=== PATIENT | male | born 1950 ===

== ENCOUNTER 2016-06-16 18:50 | Observation (INO) | payer MEDICAID ==
[2016-06-16 18:50] VITALS: PULSE 97; BMI 37.1
--- NOTE | 2016-06-16 19:21 | ED PDOC ---
Lower Extremity Pain/Injury Time Seen by Provider: 06/16/16 19:06 Chief Complaint (Nursing): Lower Extremity Problem/Injury Chief Complaint (Provider): Bilateral Leg Swelling History Per: Patient History/Exam Limitations: no limitations Onset/Duration Of Symptoms: Days (1 day) Current Symptoms Are (Timing): Still Present Severity: Moderate Additional Complaint(s): Ignacio Soni is a 65 year old male, with a past medical history of coronary artery disease, congestive heart failure, and hypertension, who presents to the emergency department for the evaluation of bilateral leg swelling, inclusive of redness, that the patient has been experiencing for 1 day. Patient states that symptoms are similar to previous episodes of when he has had a fluid overload in the past. Denies chest pain, shortness of breath, a cough, or a fever. Of note, patient is compliant with his medications. PMD: Maricruz Solis - Risk Factors DVT Risk Factors: Pos: CHF Past Medical History Reviewed: Historical Data, Nursing Documentation, Vital Signs Vital Signs: Last Vital Signs Temp 97.5 F L 06/16/16 18:51 Pulse 80 06/16/16 18:51 Resp 18 06/16/16 18:51 BP 124/69 06/16/16 18:51 Pulse Ox 100 06/16/16 18:51 - Medical History PMH: Asthma, Atrial Fibrillation, CAD, CHF, COPD, CVA, HTN, Hypercholesterolemia Denies: Diabetes, HIV, Chronic Kidney Disease Other PMH: Angina, Hypercalcemia Adrenal Adenoma, DJD, Gout, COPD - Surgical History Other surgeries: Orthopedic Surgery - Family History Family History: States: [place], Diabetes, Hypertension (mother) - Social History Current smoker - smoking cessation education provided: No Ex-Smoker (has not smoked in the last 12 months): Yes Drugs: Cocaine - Home Medications Home Medications: Ambulatory Orders Medication Instructions Recorded Losartan [Cozaar] 100 mg PO DAILY #0 tab 04/10/16 [id number] CD [Cardizem CD] 180 mg PO DAILY #0 cap 04/10/16 Atorvastatin [Lipitor] 40 mg PO HS 05/03/16 Albuterol HFA [Ventolin HFA 90 2 puff IH [id number] #1 inhaler 06/02/16 mcg/actuation (8 g)] Apixaban [Eliquis] 5 mg PO BID #60 06/02/16 Aspirin [Aspirin EC] 325 mg PO DAILY #30 06/02/16 Colchicine [Colcrys] 0.6 mg PO DAILY #30 06/02/16 Gabapentin [Neurontin] 300 mg PO BID #60 06/02/16 Tiotropium [Spiriva] 18 mcg IH DAILY #30 cap 06/02/16 - Allergies Allergies/Adverse Reactions: Allergies Allergy/AdvReac Type Severity Reaction Status Date / Time Penicillins Allergy RASH Verified 06/02/16 03:12 Review of Systems ROS Statement: Except As Marked, All Systems Reviewed And Found Negative Constitutional: Negative for: Fever Cardiovascular: Positive for: Edema (b/l legs inclusive of redness). Negative for: Chest Pain Respiratory: Negative for: Cough, Shortness of Breath Physical Exam - Reviewed Nursing Documentation Reviewed: Yes Vital Signs Reviewed: Yes - Physical Exam Appears: Positive for: Non-toxic, No Acute Distress Head Exam: Positive for: ATRAUMATIC, NORMOCEPHALIC Skin: Positive for: Normal Color, Warm, Dry Eye Exam: Positive for: Normal appearance, EOMI, PERRL ENT: Positive for: Normal ENT Inspection. Negative for: Pharyngeal Erythema, Tonsillar Exudate Neck: Positive for: Normal, Painless ROM, Supple Cardiovascular/Chest: Positive for: Regular Rate, Rhythm. Negative for: Murmur Respiratory: Positive for: Rales (b/l lower lung quintana). Negative for: Normal Breath Sounds, Wheezing, Respiratory Distress Gastrointestinal/Abdominal: Positive for: Normal Exam, Soft. Negative for: Tenderness Back: Positive for: Normal Inspection. Negative for: Decreased ROM Extremity: Positive for: Normal ROM, Tenderness (b/l anterior lower leg tenderness inclusive of warmth and subtle erythema), Pedal Edema (pitting), Swelling Lymphatic: Negative for: Adenopathy Neurologic/Psych: Positive for: Alert, Oriented. Negative for: Motor/Sensory Deficits - Laboratory Results Result Diagrams: 06/17/16 06:00 06/17/16 06:00 - ECG O2 Sat by Pulse Oximetry: 100 (RA) Pulse Ox Interpretation: Normal Medical Decision Making Medical Decision Makin:06 Initial Impression: Leg swelling Differential Diagnoses includes, but is not limited to, CHF, DVT, cellulitis, and renal insufficiency. Initial Plan: * Duplex Lower Extrm Vein Bilat US * Chest X-Ray * EKG * CBC * CMP * PT/PTT * BNP * Troponin I * Lact Acid, Plasma * Glucose, Blood, POC * Urine Drug Screen * Urinalysis * Blood Culture * Urine Culture * Reevaluation Accession No. : [id number] Patient Name / ID : OSCAR DOSS / [id number] Exam Date : 06/16/2016 20:55:08 ( Approved ) Study Comment : Sex / Age : M / [id number] Creator : Antonio Armendariz MD Dictator : Examination Scorer : Electrician Office : Antonio Armendariz MD Approver2 : Report Date : 06/16/2016 21:37:00 My Comment : [facility] Division of Radiology [address] [place] [address] Tel. no. Patient Name: IGNACIO SONI Pt. Address: [address] [place] [address] Rec #: [id number] [place] [address]: Chalo CONWAY, Mery Lozada Pt CELL Order Location: [facility] MARYVALE : 1950 Male Age: 65 Order #: [id number] Reason for exam: leg swelling Ultrasound DUPLEX LOWER EXTRM VEIN BILAT Exam Date: 06/16/16 This imaging exam was performed at [facility] EXAM: US Duplex Bilateral Lower Extremity Veins CLINICAL HISTORY: 65 years old, male; Pain; Leg, lower; Bilateral; Additional info: Leg swelling TECHNIQUE: Real-time ultrasound scan of the veins of the bilateral lower extremities with color Doppler flow, spectral waveform analysis and compression. COMPARISON: No relevant prior studies available. FINDINGS: Right deep veins: Normal color and spectral Doppler flow. Normal compressibility. No deep vein thrombosis from common femoral to popliteal vein. Right superficial veins: Unremarkable. Left deep veins: Normal color and spectral Doppler flow. Normal compressibility. No deep vein thrombosis from common femoral to popliteal vein. Left superficial veins: Unremarkable. Soft tissues: No popliteal cyst. IMPRESSION: 1. No evidence of DVT within the lower extremities. 2. Incidental/non-acute findings are described above. Dictated By: Antonio Armendariz MD Dictated Date/Time: 06/16/162136 Signed By: Antonio Armendariz MD Date Signed: 2136 Transcribed By: JAGJIT Transcribe Date/Time : 06/16/162136 [id number]/STEVEN Pt needs hospitalization for chest pain with cardiac risk factors. Scribe Attestation: Documented by Fabricio Barfield, acting as a scribe for Mery Isabel MD. Provider Scribe Attestation: All medical record entries made by the Scribe were at my direction and personally dictated by me. I have reviewed the chart and agree that the record accurately reflects my personal performance of the history, physical exam, medical decision making, and the department course for this patient. I have also personally directed, reviewed, and agree with the discharge instructions and disposition. Disposition - Clinical Impression Clinical Impression: CHF (congestive heart failure), Acute chest pain Discussed With : Alber Hairston Doctor Will See Patient In The: Hospital Counseled Patient/Family Regarding: Studies Performed, Diagnosis - Disposition Disposition Time: 19:20 Condition: SERIOUS - Pt Status Changed To: Hospital Disposition Of: Observation - POA Present On Arrival: None
[2016-06-16 20:29] LABS: BASO # 0.1 K/uL (0.0-0.2); BASO % 0.6 % (0.0-2.0); EOS # 0.4 K/uL (0.0-0.7); EOS % 3.9 % (0.0-4.0); HEMATOCRIT 42.7 % (35.0-51.0); LYMPH % 21.9 % (20.0-40.0); MEAN CELL VOLUME 91.5 fl (80.0-94.0); MEAN CORPUSCULAR HEMOGLOBIN 29.8 pg (27.0-31.0); MEAN CORPUSCULAR HGB CONC 32.6 g/dL (33.0-37.0); MEAN PLATELET VOLUME 10.9 fl (7.2-11.7); MONO # 0.7 K/uL (0.0-0.8); MONO % 8.2 % (0.0-10.0); NEUT % 65.4 % (50.0-75.0); RED CELL DISTRIBUTION WIDTH 15.9 % (11.5-14.5); WHITE BLOOD COUNT 9.1 K/uL (4.8-10.8)
[2016-06-16 20:32] LABS: RBC URINE 1 /hpf (0-3); URINE BILIRUBIN NEGATIVE (NEGATIVE); URINE BLOOD NEGATIVE (NEGATIVE); URINE COLOR YELLOW (YELLOW); URINE GLUCOSE (UA) NEG (Normal); URINE KETONE NEGATIVE (NEGATIVE); URINE LEUKOCYTE ESTERASE NEG Leu/uL (Negative); URINE PROTEIN NEGATIVE (NEGATIVE); URINE UROBILINOGEN 0.2-1.0 mg/dL (0.2-1.0); WBC URINE < 1 /hpf (0-5)
[2016-06-16 20:44] LABS: ALB/GLOB RATIO 1.3 (1.0-2.1); ALKALINE PHOSPHATASE 95 U/L (38-126); ALT/SGPT 38 U/L (21-72); AST/SGOT 27 U/L (17-59); BILIRUBIN,TOTAL 0.5 mg/dl (0.2-1.3); BLOOD UREA NITROGEN 23 mg/dl (9-20); CARBON DIOXIDE 26 mmol/L (22-30); CHLORIDE 106 mmol/L (98-107); GFR AFRICAN-AMERICAN > 60; GLUCOSE,RANDOM 90 mg/dL (75-110); POTASSIUM 4.3 MMOL/L (3.6-5.0); SODIUM 141 mmol/l (132-148); TOTAL PROTEIN 6.8 G/DL (6.3-8.2)
[2016-06-16 21:03] LABS: PARTIAL THROMBOPLASTIN TIME 26.4 SECONDS (23.3-32.5)
--- NOTE | 2016-06-16 21:37 | US ---
EXAM: US Duplex Bilateral Lower Extremity Veins CLINICAL HISTORY: 65 years old, male; Pain; Leg, lower; Bilateral; Additional info: Leg swelling TECHNIQUE: Real-time ultrasound scan of the veins of the bilateral lower extremities with color Doppler flow, spectral waveform analysis and compression. COMPARISON: No relevant prior studies available. FINDINGS: Right deep veins: Normal color and spectral Doppler flow. Normal compressibility. No deep vein thrombosis from common femoral to popliteal vein. Right superficial veins: Unremarkable. Left deep veins: Normal color and spectral Doppler flow. Normal compressibility. No deep vein thrombosis from common femoral to popliteal vein. Left superficial veins: Unremarkable. Soft tissues: No popliteal cyst. IMPRESSION: 1. No evidence of DVT within the lower extremities. 2. Incidental/non-acute findings are described above.
[2016-06-16] MEDS ORDERED: Clindamycin 600 MG in Sodium Chloride 0.9% 100 ML IVPB STA (21:47)
--- NOTE | 2016-06-17 00:21 | CP.PCM.HP ---
History of Present Illness - History of Present Illness History of Present Illness: CC: BL leg swelling x 1 day 65yo M with PMHx of Systolic CHF ( EF 45% on last ECHO 04/23), HTN, Afib, CVA, COPD, HLD, gout, hyperparathyroidism, hypercalcemia, and cocaine use admitted for bilateral leg swelling x 1 day. Also associated with some redness and warmth. States similiar episode before during CHF exacerbation. Denies f/c/n/v/ chest pain, shortness of breath, cough/abd pain/ diarrhea/focal weakness. States being compliant with medications but does not remember names. Admits to cocaine use this morning. States not following up at clinic s/p discharge from [facility] 06/02 because he ''did not have time''. PMHx: as above PSHx: b/l bunionectomy (1996) Allergy: PCN SHx: Homeless, Smokes Tobacco, Occasional etoh, Cocaine Abuse Meds: verified with last discharge 06/02; has not followed up with [facility] since PMD: [facility] ED Course: Initial Plan: Duplex Lower Extrm Vein Bilat US: WNL Chest X-Ray EKG CBC CMP PT/PTT BNP Troponin I Lact Acid, Plasma Glucose, Blood, POC Urine Drug Screen Urinalysis Blood Culture Urine Culture Present on Admission - Present on Admission Any Indicators Present on Admission: No Review of Systems - Review of Systems Review of Systems: see hpi Past Patient History - Infectious Disease Hx of Infectious Diseases: None - Tetanus Immunizations Tetanus Immunization: Unknown - Past Medical History & Family History Past Medical History?: Yes - Past Social History Drugs: Cocaine - CARDIAC Hx Atrial Fibrillation: Yes Hx Congestive Heart Failure: Yes Hx Hypercholesterolemia: Yes Hx Hypertension: Yes - PULMONARY Hx Asthma: Yes Hx Chronic Obstructive Pulmonary Disease (COPD): Yes - NEUROLOGICAL HX Cerebrovascular Accident: Yes (Left cerebellar infarct) Hx Dizziness: Yes Hx Vertigo: Yes Other/Comment: Hx Neuropathy - HEENT Hx HEENT Problems: No - RENAL Hx Chronic Kidney Disease: No - ENDOCRINE/METABOLIC Hx Endocrine Disorders: Yes (Hypercalcemia adrenal adenoma) Other/Comment: Hx Hyperparathyroid. Hx Left Adrenal mass. Hx Metabolic Syndrome - HEMATOLOGICAL/ONCOLOGICAL Hx Human Immunodeficiency Virus (HIV): No - INTEGUMENTARY Hx Dermatological Problems: Yes Hx Cellulitis: Yes - MUSCULOSKELETAL/RHEUMATOLOGICAL Hx Gout: Yes - GASTROINTESTINAL Other/Comment: Hx Gastroenteritis - GENITOURINARY/GYNECOLOGICAL Hx Genitourinary Disorders: No - PSYCHIATRIC Hx Psychophysiologic Disorder: Yes Hx Psychosis: Yes Hx Substance Use: Yes - SURGICAL HISTORY Hx Surgeries: Yes Hx Orthopedic Surgery: Yes Other/Comment: Hx BILATERAL BUNIONECTOMY 1996 - ANESTHESIA Hx Anesthesia: Yes Hx Anesthesia Reactions: No Hx Malignant Hyperthermia: No Meds Allergies/Adverse Reactions: Allergies Allergy/AdvReac Type Severity Reaction Status Date / Time Penicillins Allergy RASH Verified 06/02/16 03:12 Physical Exam - Constitutional Appears: No Acute Distress, Unkempt, Older Than Stated Age - Head Exam Head Exam: ATRAUMATIC - Eye Exam Eye Exam: EOMI Pupil Exam: PERRL - ENT Exam ENT Exam: Mucous Membranes Moist - Neck Exam Neck exam: Positive for: Full Rom - Respiratory Exam Respiratory Exam: absent: Accessory Muscle Use, Respiratory Distress Additional comments: fine crackles on BL lung bases, decreased BS BL bases - Cardiovascular Exam Cardiovascular Exam: +S1, +S2 - GI/Abdominal Exam GI & Abdominal Exam: Distended, Soft. absent: Guarding, Mass, Rigid, Tenderness - Extremities Exam Extremities exam: Positive for: pedal pulses present. Negative for: calf tenderness Additional comments: BL 2+ pitting edema up till daugherty, BL mild erythema, no ulcerations - Neurological Exam Neurological exam: Alert, Oriented x3 - Psychiatric Exam Psychiatric exam: Normal Affect, Normal Mood - Skin Skin Exam: Normal Color, Warm Results - Vital Signs Recent Vital Signs: Last Vital Signs Temp 97.5 F L 06/16/16 18:51 Pulse 71 06/16/16 21:45 Resp 16 06/16/16 21:45 BP 143/84 06/16/16 21:45 Pulse Ox 100 06/16/16 21:46 - Labs Result Diagrams: 06/16/16 20:11 06/16/16 20:11 Labs: Laboratory Results - last 24 hr 06/16/16 06/16/16 06/16/16 20:11 20:11 20:11 WBC 9.1 RBC 4.66 Hgb 13.9 Hct 42.7 MCV 91.5 MCH 29.8 MCHC 32.6 L RDW 15.9 H Plt Count 151 MPV 10.9 Neut % (Auto) 65.4 Lymph % (Auto) 21.9 Lyman % (Auto) 8.2 Eos % (Auto) 3.9 Baso % (Auto) 0.6 Neut # 6.0 Lymph # 2.0 Lyman # 0.7 Eos # 0.4 Baso # 0.1 PT INR APTT Sodium 141 Potassium 4.3 Chloride 106 Carbon Dioxide 26 Anion Gap 14 BUN 23 H Creatinine 1.3 Est GFR ( Amer) > 60 Est GFR (Non-Af Amer) 56 Random Glucose 90 Lactic Acid 1.3 Calcium 11.0 H Total Bilirubin 0.5 AST 27 ALT 38 Alkaline Phosphatase 95 Troponin I < 0.0120 NT-Pro-B Natriuret Pep 610 Total Protein 6.8 Albumin 3.8 Globulin 3.0 Albumin/Globulin Ratio 1.3 Urine Color Urine Clarity Urine pH Ur Specific Dunlo Urine Protein Urine Glucose (UA) Urine Ketones Urine Blood Urine Nitrate Urine Bilirubin Urine Urobilinogen Ur Leukocyte Esterase Urine RBC (Auto) Urine Microscopic WBC Urine Opiates Screen Urine Methadone Screen Ur Barbiturates Screen Ur Phencyclidine Scrn Ur Amphetamines Screen U Benzodiazepines Scrn U Oth Cocaine Metabols U Cannabinoids Screen 06/16/16 06/16/16 06/16/16 20:11 20:11 20:11 WBC RBC Hgb Hct MCV MCH MCHC RDW Plt Count MPV Neut % (Auto) Lymph % (Auto) Lyman % (Auto) Eos % (Auto) Baso % (Auto) Neut # Lymph # Lyman # Eos # Baso # PT 11.2 INR 1.08 APTT 26.4 Sodium Potassium Chloride Carbon Dioxide Anion Gap BUN Creatinine Est GFR ( Amer) Est GFR (Non-Af Amer) Random Glucose Lactic Acid Calcium Total Bilirubin AST ALT Alkaline Phosphatase Troponin I NT-Pro-B Natriuret Pep Total Protein Albumin Globulin Albumin/Globulin Ratio Urine Color Yellow Urine Clarity Clear Urine pH 6.0 Ur Specific Dunlo 1.021 Urine Protein Negative Urine Glucose (UA) Neg Urine Ketones Negative Urine Blood Negative Urine Nitrate Negative Urine Bilirubin Negative Urine Urobilinogen 0.2-1.0 Ur Leukocyte Esterase Neg Urine RBC (Auto) 1 Urine Microscopic WBC < 1 Urine Opiates Screen Negative Urine Methadone Screen Negative Ur Barbiturates Screen Negative Ur Phencyclidine Scrn Negative Ur Amphetamines Screen Negative U Benzodiazepines Scrn Negative U Oth Cocaine Metabols Positive H U Cannabinoids Screen Negative Assessment & Plan - Assessment and Plan (Free Text) Plan: 65yo M with PMHx of Systolic CHF ( EF 45% on last ECHO 04/23), HTN, Afib, CVA, COPD, HLD, gout, hyperparathyroidism, hypercalcemia, and cocaine use admitted for bilateral leg swelling x 1 day. Bilateral leg swelling 2/2 fluid overload in setting of systolic CHF ED Course: Duplex Lower Extrm Vein Bilat US: WNL Chest X-Ray EKG CBC CMP PT/PTT BNP 610, Troponin I negative Lact Acid WNL Glucose, Blood, POC Urine Drug Screen Urinalysis Blood Culture Urine Culture clindamycin IV x 1, lasix admit to tele alarm security or surveillance monitor daily weights monitory I/O Lasix 40 mg IV BID last ECHO 04/23: EF 45%, mod MR, mild TR c/w ARB Afib rate controlled c/w cardizem elaquis 5 mg BID HTN c/w losartan COPD c/w spiriva and ventolin Gout c/w colchicine HLD c/w Lipitor PPx DVT - Elaquis due to a fib Diet HH
[2016-06-17] MEDS: Albuterol HFA 90 mcg/actuation (8 g) IH SCH ×3 (00:32→10:01)
[2016-06-17 07:17] LABS: BASO % 0.7 % (0.0-2.0); EOS # 0.3 K/uL (0.0-0.7); EOS % 3.9 % (0.0-4.0); HEMATOCRIT 42.8 % (35.0-51.0); LYMPH # 1.6 K/uL (1.0-4.3); LYMPH % 23.4 % (20.0-40.0); MEAN CORPUSCULAR HEMOGLOBIN 30.1 pg (27.0-31.0); MEAN CORPUSCULAR HGB CONC 33.5 g/dL (33.0-37.0); MONO # 0.5 K/uL (0.0-0.8); MONO % 7.9 % (0.0-10.0); NEUT # 4.4 K/uL (1.8-7.0); NEUT % 64.1 % (50.0-75.0); NRBC % 0.1 % (0.0-0.0); RED CELL DISTRIBUTION WIDTH 15.7 % (11.5-14.5); WHITE BLOOD COUNT 6.9 K/uL (4.8-10.8)
[2016-06-17 07:27] LABS: ALB/GLOB RATIO 1.3 (1.0-2.1); BILIRUBIN,TOTAL 0.7 mg/dl (0.2-1.3); CALCIUM 11.3 mg/dL (8.4-10.2); POTASSIUM 5.2 MMOL/L (3.6-5.0); TOTAL PROTEIN 6.9 G/DL (6.3-8.2)
[2016-06-17] MEDS ORDERED: Tiotropium 18 mcg Cap For Inhalation IH SCH (09:00)
[2016-06-17] MEDS ORDERED: diltiaZEM 180 mg/24 Hours CD Cap PO SCH (09:00)
[2016-06-17] MEDS ORDERED: Aspirin 325 mg EC Tablets PO SCH (09:00)
[2016-06-17 09:11] VITALS: RESP 20
[2016-06-17] MEDS ORDERED: Albuterol 0.083% Inhal Sol (2.5 mg/3 mL) UD INH ONE (09:16)
--- NOTE | 2016-06-17 10:10 | CARD ---
APPROVED REPORT EKG Measurement Heart [id number] <Conclusion> Atrial fibrillation Abnormal ECG
--- NOTE | 2016-06-17 12:36 | RAD ---
HISTORY: Edema. COMPARISON: 06/02/2016. FINDINGS: LUNGS: No active pulmonary disease. PLEURA: No significant pleural effusion identified, no pneumothorax apparent. CARDIOVASCULAR: No radiographic findings to suggest acute or significant cardiovascular disease. OSSEOUS STRUCTURES: No significant abnormalities. VISUALIZED UPPER ABDOMEN: Normal. OTHER FINDINGS: None. IMPRESSION: No active disease. No significant interval change compared to the prior examination(s).
[2016-06-17 12:56] VITALS: TEMP 97.9
[2016-06-17 14:41] VITALS: BP 127/71; PULSE 89
--- NOTE | 2016-06-18 12:32 | CARD ---
APPROVED REPORT EKG Measurement Heart [id number] <Conclusion> Atrial fibrillation Abnormal ECG
[2016-06-19 00:17] VITALS: O2SAT 100
== END 2016-06-17 14:42 | disposition home or self-care (01) ==
LOC: H.ER 18:50 → H.ERHOLD 23:55 → H.TEL 06-17 04:02
PROVIDERS: ADMIT Family Medicine Geriatric Medicine; ATTEND Family Medicine Geriatric Medicine
DX: M79.89 Other specified soft tissue disorders (principal); E78.00 Pure hypercholesterolemia, unspecified; E78.5 Hyperlipidemia, unspecified; I11.0 Hypertensive heart disease with heart failure; I48.91 Unspecified atrial fibrillation; I50.22 Chronic systolic (congestive) heart failure; J44.9 Chronic obstructive pulmonary disease, unspecified; M10.9 Gout, unspecified; Z59.0 Homelessness; Z86.73 Personal history of transient ischemic attack (TIA), and cerebral infarction without residual deficits; I25.10 Atherosclerotic heart disease of native coronary artery without angina pectoris; Z95.5 Presence of coronary angioplasty implant and graft; J45.909 Unspecified asthma, uncomplicated; Z88.0 Allergy status to penicillin; E21.3 Hyperparathyroidism, unspecified; F14.90 Cocaine use, unspecified, uncomplicated

== ENCOUNTER 2016-06-21 19:54 | Emergency (ER) | payer MEDICAID ==
[2016-06-21 19:54] VITALS: PULSE 97; BMI 37.1
[2016-06-21 20:49] VITALS: BP 140/88; PULSE 88; RESP 18; TEMP 97.9; O2SAT 100
--- NOTE | 2016-06-21 21:15 | ED PDOC ---
Lower Extremity Pain/Injury Time Seen by Provider: 06/21/16 21:13 Chief Complaint (Nursing): Lower Extremity Problem/Injury Chief Complaint (Provider): LOWER EXTREMITY EDEMA History Per: Patient (65 Y/O MALE HOMELESS HERE WITH LOWER EXTREMITY EDEMA WORSENING TODAY. PATIENT NOTES MILD SOB. STATES HE WAS ADMITTED TO HOSPITAL FOR SIMILAR SYMPTOMS BUT FEELS NO IMPROVEMENT. DENIES ANY COUGH/FEVERS/CHILLS. ) Past Medical History Reviewed: Historical Data, Nursing Documentation, Vital Signs Vital Signs: Last Vital Signs Temp 97.9 F 06/21/16 20:45 Pulse 88 06/21/16 20:45 Resp 18 06/21/16 20:45 BP 140/88 06/21/16 20:45 Pulse Ox 100 06/21/16 20:45 - Medical History PMH: Asthma, Atrial Fibrillation, CAD, CHF, COPD, CVA, HTN, Hypercholesterolemia , Peripheral Edema Denies: Diabetes, HIV, Chronic Kidney Disease - Family History Family History: States: Unknown Family Hx, VT, Diabetes, Hypertension (mother) - Home Medications Home Medications: Ambulatory Orders Medication Instructions Recorded Losartan [Cozaar] 100 mg PO DAILY #0 tab 04/10/16 diltiaZEM CD [Cardizem CD] 180 mg PO DAILY #0 cap 04/10/16 Atorvastatin [Lipitor] 40 mg PO HS 05/03/16 Albuterol HFA [Ventolin HFA 90 2 puff IH [id number] #1 inhaler 06/02/16 mcg/actuation (8 g)] Apixaban [Eliquis] 5 mg PO BID #60 06/02/16 Aspirin [Aspirin EC] 325 mg PO DAILY #30 06/02/16 Colchicine [Colcrys] 0.6 mg PO DAILY #30 06/02/16 Gabapentin [Neurontin] 300 mg PO BID #60 06/02/16 Tiotropium [Spiriva] 18 mcg IH DAILY #30 cap 06/02/16 - Allergies Allergies/Adverse Reactions: Allergies Allergy/AdvReac Type Severity Reaction Status Date / Time Penicillins Allergy RASH Verified 06/02/16 03:12 Review of Systems ROS Statement: Except As Marked, All Systems Reviewed And Found Negative Physical Exam - Reviewed Nursing Documentation Reviewed: Yes Vital Signs Reviewed: Yes - Physical Exam Appears: Positive for: Well, Non-toxic, No Acute Distress Head Exam: Positive for: ATRAUMATIC, NORMAL INSPECTION, NORMOCEPHALIC Skin: Positive for: Normal Color, Warm, DRY Eye Exam: Positive for: EOMI, Normal appearance, PERRL ENT: Positive for: Normal ENT Inspection Neck: Positive for: Normal, Painless ROM Cardiovascular/Chest: Positive for: Regular Rate, Rhythm Respiratory: Positive for: Normal Breath Sounds, Rales (RIGHT LOWER BASE.) Gastrointestinal/Abdominal: Positive for: Normal Exam, Bowel Sounds, Soft Back: Positive for: Normal Inspection Extremity: Positive for: Normal ROM, Other (MILD EDEMA NOTED BILATERAL ANKLE.) Neurologic/Psych: Positive for: Alert, Oriented - Laboratory Results Result Diagrams: 06/21/16 21:40 06/21/16 21:40 - ECG O2 Sat by Pulse Oximetry: 100 - Progress ED Course And Treament: REVIEW OF OLD RECORDS DEMOSNTRATES: PATIENT WAS NOTED TO HAVE 05/13/16 NUCLEAR ECHO WITH 60-65% EF AND DISCHARGED FROM HOSPITAL WITH DIAGNOSIS OF PERIPHERAL EDEMA, NOT CHF. ULTRASOUND 06/16/2016: NO DVT d/w Dr. Jewell family and consumer education teacher. Knows patient well. Patient has h/o bed-seeking behavior when fdc is full. States patient does not have findings of CHF and to can be discharged home with outpatient f/u. d/w Dr. Moulton. Disposition - Clinical Impression Clinical Impression: Peripheral vascular disease, Lower extremity edema - Patient ED Disposition Is Patient to be Admitted: No - Disposition Disposition: Routine/Home Disposition Time: 23:47 Condition: FAIR Instructions: Leg Edema (ED)
[2016-06-21 21:56] LABS: BASO # 0.1 K/uL (0.0-0.2); BASO % 0.7 % (0.0-2.0); EOS # 0.3 K/uL (0.0-0.7); EOS % 3.3 % (0.0-4.0); HEMATOCRIT 43.8 % (35.0-51.0); LYMPH # 2.1 K/uL (1.0-4.3); LYMPH % 26.4 % (20.0-40.0); MEAN CELL VOLUME 91.9 fl (80.0-94.0); MEAN CORPUSCULAR HEMOGLOBIN 29.6 pg (27.0-31.0); MEAN CORPUSCULAR HGB CONC 32.3 g/dL (33.0-37.0); MEAN PLATELET VOLUME 10.6 fl (7.2-11.7); MONO # 0.8 K/uL (0.0-0.8); MONO % 10.3 % (0.0-10.0); NEUT # 4.7 K/uL (1.8-7.0); NEUT % 59.3 % (50.0-75.0); RED CELL DISTRIBUTION WIDTH 15.8 % (11.5-14.5); WHITE BLOOD COUNT 7.9 K/uL (4.8-10.8)
[2016-06-21 22:10] LABS: ALB/GLOB RATIO 1.3 (1.0-2.1); ALKALINE PHOSPHATASE 94 U/L (38-126); ALT/SGPT 43 U/L (21-72); AST/SGOT 28 U/L (17-59); BILIRUBIN,TOTAL 0.4 mg/dl (0.2-1.3); BLOOD UREA NITROGEN 20 mg/dl (9-20); CALCIUM 11.2 mg/dL (8.4-10.2); CARBON DIOXIDE 28 mmol/L (22-30); CHLORIDE 109 mmol/L (98-107); GFR AFRICAN-AMERICAN > 60; GLUCOSE,RANDOM 115 mg/dL (75-110); MAGNESIUM 2.2 MG/DL (1.6-2.3); POTASSIUM 5.1 MMOL/L (3.6-5.0); SODIUM 146 mmol/l (132-148); TOTAL PROTEIN 7.1 G/DL (6.3-8.2)
--- NOTE | 2016-06-22 12:29 | RAD ---
HISTORY: SOB COMPARISON: Comparison made with chest radiograph dated 06/16/2016 TECHNIQUE: Chest PA and lateral FINDINGS: LUNGS: Poor inspiration with low lung volumes, mild crowded bronchovascular markings and minor bibasilar atelectasis PLEURA: No significant pleural effusion identified. No pneumothorax apparent. CARDIOVASCULAR: Heart size upper limits of normal. Aorta is slightly ectatic and uncoiled. OSSEOUS STRUCTURES: No significant abnormalities. VISUALIZED UPPER ABDOMEN: Normal. OTHER FINDINGS: None. IMPRESSION: Poor inspiration with low lung volumes, mild crowded bronchovascular markings and minor bibasilar atelectasis
--- NOTE | 2016-06-22 22:38 | CARD ---
APPROVED REPORT EKG Measurement Heart [id number] <Conclusion> Atrial fibrillation Abnormal ECG
== END 2016-06-22 00:22 | disposition home or self-care (01) ==
LOC: H.ER 19:54
DX: I73.9 Peripheral vascular disease, unspecified (principal); J44.9 Chronic obstructive pulmonary disease, unspecified; E78.00 Pure hypercholesterolemia, unspecified; I10 Essential (primary) hypertension; I25.10 Atherosclerotic heart disease of native coronary artery without angina pectoris; I50.9 Heart failure, unspecified; Z79.01 Long term (current) use of anticoagulants; Z79.82 Long term (current) use of aspirin; Z86.73 Personal history of transient ischemic attack (TIA), and cerebral infarction without residual deficits; Z88.0 Allergy status to penicillin

== ENCOUNTER 2016-06-24 19:40 | Emergency (ER) | payer MEDICAID ==
[2016-06-24 19:40] VITALS: PULSE 97; BMI 37.1
[2016-06-24 21:33] VITALS: BP 118/68; PULSE 73; RESP 20; TEMP 98; O2SAT 99
--- NOTE | 2016-06-24 21:44 | ED PDOC ---
Lower Extremity Pain/Injury Time Seen by Provider: 06/24/16 21:35 Chief Complaint (Nursing): Lower Extremity Problem/Injury Additional Complaint(s): Patient (65 Y/O MALE HOMELESS HERE WITH LOWER EXTREMITY EDEMA WORSENING TODAY. PATIENT NOTES MILD SOB. STATES HE WAS ADMITTED TO HOSPITAL FOR SIMILAR SYMPTOMS BUT FEELS NO IMPROVEMENT. DENIES ANY COUGH/FEVERS/CHILLS. ) Upon chart review: Cardiac nuclear test done on 05/13/[address] [facility] showed LV with normal size and normal systolic function, EF : 60-65 %. Patient does not meet CHF criteria at this time. Edema in lower extremities most likely secondary to Chronic peripheral vascular edema. Patient is asymptomatic at this time. Stable to be discharge home on current home medications. Recommended f/u with PMD at [facility] as outpatient. Recommended f/u with Tricia at [facility] to assist with jail re-location. ER precautions provided. Past Medical History Reviewed: Historical Data, Nursing Documentation, Vital Signs Vital Signs: Last Vital Signs Temp 98 F 06/24/16 21:30 Pulse 73 06/24/16 21:30 Resp 20 06/24/16 21:30 BP 118/68 06/24/16 21:30 Pulse Ox 99 06/24/16 21:30 - Medical History PMH: Asthma, Atrial Fibrillation, CAD, CHF, COPD, CVA, HTN, Hypercholesterolemia , Peripheral Edema Denies: Diabetes, HIV, Chronic Kidney Disease - Family History Family History: States: Unknown Family Hx, [place], Diabetes, Hypertension (mother) - Social History Current smoker - smoking cessation education provided: No Alcohol: None Drugs: Denies - Home Medications Home Medications: Ambulatory Orders Medication Instructions Recorded Losartan [Cozaar] 100 mg PO DAILY #0 tab 04/10/16 diltiaZEM CD [Cardizem CD] 180 mg PO DAILY #0 cap 04/10/16 Atorvastatin [Lipitor] 40 mg PO HS 05/03/16 Albuterol HFA [Ventolin HFA 90 2 puff IH [id number] #1 inhaler 06/02/16 mcg/actuation (8 g)] Apixaban [Eliquis] 5 mg PO BID #60 06/02/16 Aspirin [Aspirin EC] 325 mg PO DAILY #30 06/02/16 Colchicine [Colcrys] 0.6 mg PO DAILY #30 06/02/16 Gabapentin [Neurontin] 300 mg PO BID #60 06/02/16 Tiotropium [Spiriva] 18 mcg IH DAILY #30 cap 06/02/16 - Allergies Allergies/Adverse Reactions: Allergies Allergy/AdvReac Type Severity Reaction Status Date / Time Penicillins Allergy RASH Verified 06/02/16 03:12 Review of Systems ROS Statement: Except As Marked, All Systems Reviewed And Found Negative Musculoskeletal: Positive for: Leg Pain Physical Exam - Reviewed Nursing Documentation Reviewed: Yes Vital Signs Reviewed: Yes - Physical Exam Appears: Positive for: Well, Non-toxic, No Acute Distress Head Exam: Positive for: ATRAUMATIC, NORMAL INSPECTION, NORMOCEPHALIC Skin: Positive for: Normal Color, Warm, DRY Eye Exam: Positive for: EOMI, Normal appearance, PERRL ENT: Positive for: Normal ENT Inspection Neck: Positive for: Normal, Painless ROM Cardiovascular/Chest: Positive for: Regular Rate, Rhythm Respiratory: Positive for: CNT, Normal Breath Sounds Gastrointestinal/Abdominal: Positive for: Normal Exam, Bowel Sounds, Soft Back: Positive for: Normal Inspection Extremity: Positive for: Normal ROM, Pedal Edema, Swelling Neurologic/Psych: Positive for: Alert, Oriented - Laboratory Results Result Diagrams: 06/24/16 23:20 - ECG O2 Sat by Pulse Oximetry: 99 Medical Decision Making Medical Decision Making: EKG: A.fib, no acute ST cahnges, as read by ED MD CXR: NAD, as read by RADHA IV access established and diagnostics ordered CBC resulted WNL at midnnight. Case endorsed to RADHA Carbajal at midnight. Chart review: PATIENT WAS NOTED TO HAVE 05/13/16 NUCLEAR ECHO WITH 60-65% EF AND DISCHARGED FROM HOSPITAL WITH DIAGNOSIS OF PERIPHERAL EDEMA, NOT CHF. ULTRASOUND 06/16/2016: NO DVT Disposition - Clinical Impression Clinical Impression: Leg swelling - Patient ED Disposition Is Patient to be Admitted: No - Disposition Referrals: Maricruz Solis MD [Primary Care Provider] - Disposition: Transfer of Care ([facility]) Disposition Time: 00:03 Condition: STABLE - POA Present On Arrival: None
[2016-06-24 23:25] LABS: BASO # 0.1 K/uL (0.0-0.2); EOS # 0.2 K/uL (0.0-0.7); EOS % 3.5 % (0.0-4.0); HEMATOCRIT 41.8 % (35.0-51.0); LYMPH # 1.7 K/uL (1.0-4.3); LYMPH % 25.6 % (20.0-40.0); MEAN CELL VOLUME 90.1 fl (80.0-94.0); MEAN CORPUSCULAR HEMOGLOBIN 29.5 pg (27.0-31.0); MEAN CORPUSCULAR HGB CONC 32.7 g/dL (33.0-37.0); MEAN PLATELET VOLUME 10.1 fl (7.2-11.7); MONO # 0.7 K/uL (0.0-0.8); MONO % 10.1 % (0.0-10.0); NEUT % 59.8 % (50.0-75.0); NRBC % 0.1 % (0.0-0.0); RED CELL DISTRIBUTION WIDTH 15.7 % (11.5-14.5); WHITE BLOOD COUNT 6.8 K/uL (4.8-10.8)
[2016-06-24 23:49] LABS: ALB/GLOB RATIO 1.2 (1.0-2.1); ALKALINE PHOSPHATASE 103 U/L (38-126); ALT/SGPT 37 U/L (21-72); AST/SGOT 25 U/L (17-59); BILIRUBIN,TOTAL 0.5 mg/dl (0.2-1.3); BLOOD UREA NITROGEN 20 mg/dl (9-20); CALCIUM 10.9 mg/dL (8.4-10.2); CARBON DIOXIDE 24 mmol/L (22-30); CHLORIDE 112 mmol/L (98-107); GFR AFRICAN-AMERICAN > 60; GLUCOSE,RANDOM 91 mg/dL (75-110); POTASSIUM 4.3 MMOL/L (3.6-5.0); SODIUM 143 mmol/l (132-148); TOTAL PROTEIN 6.8 G/DL (6.3-8.2)
[2016-06-25] MEDS ORDERED: Albuterol-Ipratrop 3 mg / 0.5 (3 ml) UD INH STA (00:03)
[2016-06-25 00:11] LABS: PARTIAL THROMBOPLASTIN TIME 26.1 SECONDS (23.3-32.5)
[2016-06-25] MEDS ORDERED: Albuterol-Ipratrop 3 mg / 0.5 (3 ml) UD ONE (00:11)
--- NOTE | 2016-06-25 01:32 | ED PDOC ---
- Laboratory Results Result Diagrams: 06/24/16 23:20 06/24/16 23:20 - ECG O2 Sat by Pulse Oximetry: 99 Medical Decision Making Medical Decision Making: pt signed out to me pending results. labs wnl. ekg shows afib at 85. no acute changes. cxr nad. pt had full work up inpatient last week and was dx peripheral edema. encouraged pt to elevate extremities. will d/c home to f/u outpatient. Disposition - Clinical Impression Clinical Impression: Peripheral edema - POA Present On Arrival: None - Disposition Referrals: Maricruz Solis MD [Primary Care Provider] - Disposition: Routine/Home Disposition Time: 01:32 Condition: STABLE Instructions: Edema (ED) Print Language: MALTESE
--- NOTE | 2016-06-25 12:33 | RAD ---
HISTORY: leg pain COMPARISON: Chest x-ray performed 06/21/16 TECHNIQUE: Chest PA and lateral FINDINGS: Examination limited by habitus. LUNGS: No focal consolidation. Please note that chest x-ray has limited sensitivity for the detection of pulmonary masses. PLEURA: No significant pleural effusion identified. No definite pneumothorax . CARDIOVASCULAR: Heart size appears within normal limits. OSSEOUS STRUCTURES: Degenerative changes of the spine. VISUALIZED UPPER ABDOMEN: Unremarkable. OTHER FINDINGS: None. IMPRESSION: No focal consolidation, significant pleural effusion, or definite pneumothorax identified.
--- NOTE | 2016-06-25 22:45 | CARD ---
APPROVED REPORT EKG Measurement Heart [id number] <Conclusion> Atrial fibrillation Abnormal ECG
== END 2016-06-25 02:30 | disposition home or self-care (01) ==
LOC: H.ER 19:40
DX: R60.9 Edema, unspecified (principal); R06.02 Shortness of breath; J44.9 Chronic obstructive pulmonary disease, unspecified; I48.91 Unspecified atrial fibrillation; I10 Essential (primary) hypertension

== ENCOUNTER 2016-06-29 19:33 | Inpatient (IN) | payer MEDICAID ==
[2016-06-29 19:33] VITALS: PULSE 97; BMI 37.1
[2016-06-29 20:24] LABS: BASO # 0.1 K/uL (0.0-0.2); BASO % 0.9 % (0.0-2.0); EOS # 0.3 K/uL (0.0-0.7); EOS % 3.6 % (0.0-4.0); HEMATOCRIT 41.9 % (35.0-51.0); LYMPH # 1.5 K/uL (1.0-4.3); LYMPH % 19.8 % (20.0-40.0); MEAN CELL VOLUME 90.9 fl (80.0-94.0); MEAN CORPUSCULAR HEMOGLOBIN 29.7 pg (27.0-31.0); MEAN CORPUSCULAR HGB CONC 32.7 g/dL (33.0-37.0); MEAN PLATELET VOLUME 10.1 fl (7.2-11.7); MONO # 0.7 K/uL (0.0-0.8); NEUT # 4.8 K/uL (1.8-7.0); NEUT % 65.7 % (50.0-75.0); NRBC % 0.1 % (0.0-0.0); RED CELL DISTRIBUTION WIDTH 15.4 % (11.5-14.5); WHITE BLOOD COUNT 7.4 K/uL (4.8-10.8)
[2016-06-29 20:28] LABS: ALB/GLOB RATIO 1.3 (1.0-2.1); ALCOHOL SERUM < 10 mg/dl (0-10); ALKALINE PHOSPHATASE 115 U/L (38-126); ALT/SGPT 37 U/L (21-72); AST/SGOT 28 U/L (17-59); BILIRUBIN,TOTAL 0.5 mg/dl (0.2-1.3); BLOOD UREA NITROGEN 24 mg/dl (9-20); CALCIUM 11.3 mg/dL (8.4-10.2); CARBON DIOXIDE 25 mmol/L (22-30); CHLORIDE 109 mmol/L (98-107); GFR AFRICAN-AMERICAN 57; GLUCOSE,RANDOM 88 mg/dL (75-110); POTASSIUM 4.4 MMOL/L (3.6-5.0); SODIUM 142 mmol/l (132-148); TOTAL PROTEIN 7.1 G/DL (6.3-8.2)
[2016-06-29 20:45] LABS: PARTIAL THROMBOPLASTIN TIME 26.5 SECONDS (23.3-32.5)
--- NOTE | 2016-06-29 20:54 | ED PDOC ---
HPI: Chest Pain Time Seen by Provider: 06/29/16 19:46 Chief Complaint (Nursing): Chest Pain Chief Complaint (Provider): Chest Pain History Per: Patient History/Exam Limitations: no limitations Onset/Duration Of Symptoms: Hrs Current Symptoms Are (Timing): Still Present Additional Complaint(s): 65 y/o male with a past medical history of hypertension and A fib presents to the emergency department with a complaint of palpitations and chest pain x2 hours prior to arrival. Patient is well known to provider and ED for hx of chest pain and is currently domiciled. Patient has a questionable history of compliance with medications. Denies nausea, vomiting, diaphoresis, fever, cough , shortness of breath or any recent cocaine use. Past Medical History Reviewed: Historical Data, Nursing Documentation, Vital Signs Vital Signs: Last Vital Signs Temp 97.6 F 06/30/16 05:20 Pulse 62 06/30/16 05:20 Resp 18 06/30/16 05:20 BP 117/75 06/30/16 05:20 Pulse Ox 98 06/30/16 05:20 - Medical History PMH: Asthma, Atrial Fibrillation, CAD, CHF, COPD, CVA, HTN, Hypercholesterolemia , Peripheral Edema Denies: Diabetes, HIV, Chronic Kidney Disease - Family History Family History: States: Unknown Family Hx, [place], Diabetes, Hypertension (mother) - Social History Drugs: Cocaine - Home Medications Home Medications: Ambulatory Orders Medication Instructions Recorded Losartan [Cozaar] 100 mg PO DAILY #0 tab 04/10/16 diltiaZEM CD [Cardizem CD] 180 mg PO DAILY #0 cap 04/10/16 Atorvastatin [Lipitor] 40 mg PO HS 05/03/16 Albuterol HFA [Ventolin HFA 90 2 puff IH [id number] #1 inhaler 06/02/16 mcg/actuation (8 g)] Apixaban [Eliquis] 5 mg PO BID #60 06/02/16 Aspirin [Aspirin EC] 325 mg PO DAILY #30 06/02/16 Colchicine [Colcrys] 0.6 mg PO DAILY #30 06/02/16 Gabapentin [Neurontin] 300 mg PO BID #60 06/02/16 Tiotropium [Spiriva] 18 mcg IH DAILY #30 cap 06/02/16 - Allergies Allergies/Adverse Reactions: Allergies Allergy/AdvReac Type Severity Reaction Status Date / Time Penicillins Allergy RASH Verified 06/29/16 19:54 Review of Systems ROS Statement: Except As Marked, All Systems Reviewed And Found Negative Constitutional: Negative for: Fever, Sweats Cardiovascular: Positive for: Chest Pain, Palpitations Respiratory: Negative for: Cough, Shortness of Breath Gastrointestinal: Negative for: Nausea, Vomiting Physical Exam - Reviewed Nursing Documentation Reviewed: Yes Vital Signs Reviewed: Yes - Physical Exam Appears: Positive for: Non-toxic, No Acute Distress Head Exam: Positive for: ATRAUMATIC, NORMOCEPHALIC Skin: Positive for: Normal Color, Warm, Dry Cardiovascular/Chest: Positive for: Tachycardia (irregularly irregular rate ) Respiratory: Positive for: Normal Breath Sounds. Negative for: Accessory Muscle Use, Respiratory Distress Gastrointestinal/Abdominal: Positive for: Normal Exam, Soft. Negative for: Tenderness Extremity: Positive for: Normal ROM. Negative for: Pedal Edema Neurologic/Psych: Positive for: Alert, Oriented - Laboratory Results Result Diagrams: 06/29/16 20:13 06/29/16 20:13 - ECG O2 Sat by Pulse Oximetry: 99 (RA) Pulse Ox Interpretation: Normal Medical Decision Making Medical Decision Making: Time: 19:46 Initial impression: 65 y/o with palpitations in setting of known A Fib and cocaine use Initial plan: --Drug Screen, Urine Stat --Ed urine dipstick (POC) --Chest Portable (RAD) --Sodium Chloride 125mg/125 ml NS --Cardizem 125 mg IV 5mg/hr --Diltiazem 125mg/125 ml NS 5mg/hr --IV Insertion --Urinalysis Stat --30 minutes critical care --Labs were reviewed and showed no clinical abnormalities with mild cardiomegaly. --EKG: A fib with RVR of 143 bpm at 19:39 --Admit to hospital to Dr. Wolff for Atrial Fibrillation, RVR, and Chest Pain --Patient will be admitted to [facility] service discussed with Dr. Wolff Scribe Attestation: Documented by Darline Elaine, acting as a scribe for Huseyin Peters MD. Provider Scribe Attestation: All medical record entries made by the Scribe were at my direction and personally dictated by me. I have reviewed the chart and agree that the record accurately reflects my personal performance of the history, physical exam, medical decision making, and the department course for this patient. I have also personally directed, reviewed, and agree with the discharge instructions and disposition. Disposition - Clinical Impression Clinical Impression: Atrial fibrillation with RVR, Chest pain, Cocaine abuse - Patient ED Disposition Is Patient to be Admitted: Yes Discussed With : Annette Wolff - Disposition Disposition Time: 21:00 Condition: FAIR - Pt Status Changed To: Hospital Disposition Of: Inpatient - Admit Certification Admit to Inpatient:: After my assessment, the patient will require hospitalization for at least two midnights. This is because of the severity of symptoms shown, intensity of services needed, and/or the medical risk in this patient being treated as an outpatient.
[2016-06-29 22:20] LABS: RBC URINE 1 /hpf (0-3); URINE BILIRUBIN NEGATIVE (NEGATIVE); URINE BLOOD NEGATIVE (NEGATIVE); URINE COLOR YELLOW (YELLOW); URINE GLUCOSE (UA) NEG (Normal); URINE KETONE NEGATIVE (NEGATIVE); URINE LEUKOCYTE ESTERASE NEG Leu/uL (Negative); URINE PROTEIN NEGATIVE (NEGATIVE); URINE UROBILINOGEN 0.2-1.0 mg/dL (0.2-1.0); WBC URINE < 1 /hpf (0-5)
--- NOTE | 2016-06-29 22:31 | CP.PCM.HP ---
History of Present Illness - History of Present Illness History of Present Illness: 65 yo M w PMHx of HTN, Afib, COPD, HLD, gout, hyperparathyroid, hypercalcemia, and cocaine use is admitted due to chest pain in the setting of frequent chest pain and a 2016 echo showing an EF of 35-40%. 05/14/16 cardiac catheterization showed 50% obstruction of the LAD. Pt reports chest pain started randomly while he was walking,and since he was around the hospital decided to come in and be evaluated. ED evaluation found pt to be in A-fib with RVR, at evaluation in pain has resolved and pt is on cardiziem drip. does not have any other complaints. And states he did not use cocaine this time around and has been taking his medication regularly. Present on Admission - Present on Admission Any Indicators Present on Admission: No Past Patient History - Infectious Disease Hx of Infectious Diseases: None - Tetanus Immunizations Tetanus Immunization: Unknown - Past Medical History & Family History Past Medical History?: Yes - Past Social History Smoking Status: Light Smoker < 10 Cigarettes Daily - CARDIAC Hx Atrial Fibrillation: Yes Hx Congestive Heart Failure: Yes Hx Hypercholesterolemia: Yes Hx Hypertension: Yes Hx Peripheral Edema: Yes - PULMONARY Hx Asthma: Yes Hx Chronic Obstructive Pulmonary Disease (COPD): Yes - NEUROLOGICAL Hx Neurological Disorder: Yes HX Cerebrovascular Accident: Yes (Left cerebellar infarct) Hx Dizziness: Yes Hx Vertigo: Yes Other/Comment: Hx Neuropathy - HEENT Hx HEENT Problems: No - RENAL Hx Chronic Kidney Disease: No - ENDOCRINE/METABOLIC Hx Endocrine Disorders: Yes (Hypercalcemia adrenal adenoma) Other/Comment: Hx Hyperparathyroid. Hx Left Adrenal mass. Hx Metabolic Syndrome - HEMATOLOGICAL/ONCOLOGICAL Hx Human Immunodeficiency Virus (HIV): No - INTEGUMENTARY Hx Dermatological Problems: Yes Hx Cellulitis: Yes - MUSCULOSKELETAL/RHEUMATOLOGICAL Hx Musculoskeletal Disorders: Yes Hx Falls: No Hx Gout: Yes - GASTROINTESTINAL Hx Gastrointestinal Disorders: Yes Other/Comment: Hx Gastroenteritis - GENITOURINARY/GYNECOLOGICAL Hx Genitourinary Disorders: No - PSYCHIATRIC Hx Psychophysiologic Disorder: Yes Hx Psychosis: Yes Hx Substance Use: Yes - SURGICAL HISTORY Hx Surgeries: Yes Hx Orthopedic Surgery: Yes Other/Comment: Hx BILATERAL BUNIONECTOMY 1996 - ANESTHESIA Hx Anesthesia: Yes Hx Anesthesia Reactions: No Hx Malignant Hyperthermia: No Meds Allergies/Adverse Reactions: Allergies Allergy/AdvReac Type Severity Reaction Status Date / Time Penicillins Allergy RASH Verified 06/29/16 19:54 Physical Exam - Constitutional Appears: Non-toxic, No Acute Distress - Head Exam Head Exam: NORMOCEPHALIC - Eye Exam Eye Exam: Normal appearance, PERRL Pupil Exam: NORMAL ACCOMODATION - ENT Exam ENT Exam: Mucous Membranes Moist - Respiratory Exam Respiratory Exam: Clear to Auscultation Bilateral, NORMAL BREATHING PATTERN. absent: Rhonchi, Wheezes - Cardiovascular Exam Cardiovascular Exam: Irregular Rhythm, +S1, +S2 - GI/Abdominal Exam GI & Abdominal Exam: Normal Bowel Sounds, Soft. absent: Tenderness - Extremities Exam Extremities exam: Negative for: calf tenderness, pedal edema - Neurological Exam Neurological exam: Alert, CN II-XII Intact, Oriented x3 Results - Vital Signs Recent Vital Signs: Last Vital Signs Temp 98.1 F 06/29/16 19:54 Pulse 122 H 06/29/16 19:54 Resp 18 06/29/16 19:54 BP Pulse Ox 99 06/29/16 20:54 - Labs Result Diagrams: 06/29/16 20:13 06/29/16 20:13 Labs: Laboratory Results - last 24 hr 06/29/16 22:10 Urine Color Yellow Urine Clarity Clear Urine pH 5.0 Ur Specific [place] 1.015 Urine Protein Negative Urine Glucose (UA) Neg Urine Ketones Negative Urine Blood Negative Urine Nitrate Negative Urine Bilirubin Negative Urine Urobilinogen 0.2-1.0 Ur Leukocyte Esterase Neg Urine RBC (Auto) 1 Urine Microscopic WBC < 1 Assessment & Plan - Assessment and Plan (Free Text) Assessment: 65 yo M w PMHx of HTN, Afib, COPD, HLD, gout, hyperparathyroid, and cocaine use recently discharged from [facility] admitted due to chest pain in the setting of frequent chest pain rule out ACS and a 2016 echo showing an EF of 35-40%, and also pt in A-fib with RVR Plan: 1) Chest pain - r/o ACS -Pain is currently controlled Urine drug screen results pending, but history of cocaine use -Troponin neg x1 -EKG: wnl -ASA 325mg PO Daily -Nitro SL PRN -f/u Serial Troponins -f/u Second EKG -Consider Cardiac Consult 2) Afib with RVR -Currently on Cardiziem drip -Eliquis 5mg PO daily -Cardizem 180 PO Daily -consider cardiology consult 3) HTN -Currently Controlled -Losartan 100 PO Daily -Cardizem 180 PO Daily 4) CKD Stage 3 -Chronic -f/u kidney functions 5) COPD/Asthma -Ventolin HFA 2puff Q4hrs PRN 6) Hyperlipidemia -Lipitor 40mg PO Daily 7) Cocaine abuse -Urine currently positive for cocaine -Extensive h/o cocaine use -No signs of withdrawal -f/u Withdrawal signs 8) DVT Prophylaxis -Eliquis 5mg PO daily -SCDs
[2016-06-30] MEDS: Albuterol HFA 90 mcg/actuation (8 g) IH SCH ×5 (02:00→21:47)
[2016-06-30 06:47] LABS: CHOLESTEROL 91 mg/dL (0-199)
[2016-06-30] MEDS: Aspirin 325 mg EC Tablets PO SCH (08:53)
[2016-06-30] MEDS ORDERED: diltiaZEM 180 mg/24 Hours CD Cap PO SCH (09:00)
[2016-06-30] MEDS ORDERED: Enoxaparin 40 mg Syringe SC SCH (09:00)
--- NOTE | 2016-06-30 10:14 | CP.PCM.PN ---
Subjective - Date & Time of Evaluation Date of Evaluation: 06/30/16 Time of Evaluation: 09:20 - Subjective Subjective: 65 y/o M admitted for A.fib with RVR seen at bedside this morning having breakfast, comfortable, denies CP, palpitations at this time. Patient c/o chronic B/L LE edema. He admitted using cocaine but states last time was 4 days ago. No changes in urination or stools. Objective - Vital Signs/Intake and Output Vital Signs (last 24 hours): Temp Pulse Resp BP Pulse Ox 97.4 F L 68 20 147/78 95 06/30/16 08:04 06/30/16 08:53 06/30/16 08:04 06/30/16 08:53 06/30/16 08:04 Intake and Output: 06/30/16 06/30/16 06:59 18:59 Intake Total 235 Output Total 600 Balance -365 - Medications Medications: Current Medications Albuterol (Ventolin Hfa 90 Mcg/Actuation (8 G)) 2 puff IH RQ6 [facility] Last Admin: 06/30/16 08:54 Dose: 2 puff Apixaban (Eliquis) 5 mg PO BID [facility] PRN Reason: Protocol Last Admin: 06/30/16 08:53 Dose: 5 mg Aspirin (Ecotrin) 325 mg PO DAILY [facility] Last Admin: 06/30/16 08:53 Dose: 325 mg Atorvastatin Calcium (Lipitor) 40 mg PO HS [facility] Colchicine (Colocrys) 0.6 mg PO DAILY [facility] Last Admin: 06/30/16 08:53 Dose: 0.6 mg Diltiazem HCl (Cardizem Cd) 180 mg PO DAILY [facility] Gabapentin (Neurontin) 300 mg PO BID [facility] Last Admin: 06/30/16 08:53 Dose: 300 mg Diltiazem HCl 125 mg/ Sodium (Chloride) 125 mls @ 5 mls/hr IV .Q24H ONE; 5 MG/ HR PRN Reason: Protocol Stop: 06/30/16 20:03 Last Admin: 06/29/16 21:05 Dose: 5 mls/hr Losartan Potassium (Cozaar) 100 mg PO DAILY [facility] Last Admin: 06/30/16 08:53 Dose: 100 mg Tiotropium [place]rell (Spiriva) 18 mcg IH DAILY [facility] - Labs Labs: PT 10.7 SECONDS (9.6-11.2) 06/29/16 20:13 INR 1.03 (0.92-1.08) 06/29/16 20:13 APTT 26.5 SECONDS (23.3-32.5) 06/29/16 20:13 - Constitutional Appears: Non-toxic, No Acute Distress - Eye Exam Eye Exam: PERRL - ENT Exam ENT Exam: Mucous Membranes Moist - Respiratory Exam Respiratory Exam: NORMAL BREATHING PATTERN. absent: Rales, Wheezes - Cardiovascular Exam Cardiovascular Exam: Irregular Rhythm, +S1, +S2. absent: Gallop - GI/Abdominal Exam GI & Abdominal Exam: Soft, Normal Bowel Sounds. absent: Tenderness - Extremities Exam Extremities Exam: Pedal Edema (B/L lE edema with rendness associated.). absent : Calf Tenderness, Tenderness - Neurological Exam Neurological Exam: Alert, Awake, Oriented x3 - Psychiatric Exam Psychiatric exam: Normal Affect, Normal Mood - Skin Skin Exam: Warm Assessment and Plan - Assessment and Plan (Free Text) Assessment: 65 yo M w PMHx of HTN, Afib, COPD, HLD, gout, hyperparathyroidism, and cocaine use admitted for CP and palpitations 1) Chest pain - r/o ACS -Possible due to cocaine abuse -Pain resolved -Urine drug screen + for cocaine -Troponin neg x3 -Repeat EKG: A.fib RVR. HR WNL on PE -ASA 325mg PO Daily -Nitro SL PRN -Cardiology Consult(Dr Abdalla) 2) Chronic Afib with RVR -Currently on Cardiziem drip(at 5) -Eliquis 5mg PO daily -Held Cardizem 180 PO Daily -Cardio consult 3) CHF(Chronic)Systolic Echo 05/11/16: EF 45%, mild systolic disfunction c/w Cozaar PO On Cardizem drip for A.Fib 4) HTN -Currently Controlled -Losartan 100 PO Daily -Cardizem 180 PO Daily 5) CKD Stage 3 -Chronic -Creatinine WNL 6) COPD/Asthma -Ventolin HFA 2puff Q4hrs PRN 7) Hyperlipidemia -Lipitor 40mg PO Daily 8) Cocaine abuse -Urine currently positive for cocaine -Extensive h/o cocaine use -No signs of withdrawal -f/u Withdrawal signs 9) DVT Prophylaxis -Eliquis 5mg PO daily -SCDs
[2016-06-30] MEDS: Tiotropium 18 mcg Cap For Inhalation IH SCH (11:41)
--- NOTE | 2016-06-30 11:42 | RAD ---
HISTORY: chest pain COMPARISON: Comparison chest 06/24/2016. FINDINGS: LUNGS: Poor inspiration with low lung volumes, mild crowded bronchovascular markings and mild bibasilar atelectasis PLEURA: No significant pleural effusion identified, no pneumothorax apparent. CARDIOVASCULAR: Cardiomegaly. OSSEOUS STRUCTURES: No significant abnormalities. VISUALIZED UPPER ABDOMEN: Normal. OTHER FINDINGS: None. IMPRESSION: Poor inspiration with low lung volumes, mild crowded bronchovascular markings and mild bibasilar atelectasis Cardiomegaly.
[2016-06-30] MEDS ORDERED: Iodixanol 320 MG/ML 100 ML BOTTLE IV ONE (16:01)
[2016-06-30] MEDS ORDERED: Sodium Chloride 0.9% 50 ML IV ONE (16:02)
--- NOTE | 2016-06-30 17:18 | CT ---
PROCEDURE: CT Chest with contrast (Pulmonary Angiogram) HISTORY: r/o PE COMPARISON: 06/24/2014 CT abdomen and pelvis includes the lower thorax. TECHNIQUE: Axial computed tomography images were obtained of the chest in the pulmonary arterial phase of enhancement. Coronal and sagittal reformatted images were created and reviewed. Maximum intensity projection (MIP) reconstructed images in the following planes: Axial only. Intravenous contrast dose: 90 cc Visipaque 320. Radiation dose: Total exam DLP = 449.53 mGy-cm. This CT exam was performed using one or more of the following dose reduction techniques: Automated exposure control, adjustment of the mA and/or kV according to patient size, and/or use of iterative reconstruction technique. FINDINGS: PULMONARY ARTERIES: Unremarkable. No pulmonary embolism. AORTA: No acute findings. No thoracic aortic aneurysm. LUNGS: Dependent atelectasis/ infiltrates unchanged compared the prior CT scan PLEURAL SPACES: Trace bilateral pleural effusions unchanged compared to 06/24/2016. HEART: Unremarkable. No cardiomegaly. No significant pericardial effusion. LYMPH NODES: No lymphadenopathy. BONES, CHEST WALL: Unremarkable. No fracture or destructive lesion marginal common non marginal osteophyte formation visualized thoracolumbar spine. OTHER FINDINGS: Unremarkable. IMPRESSION: Unremarkable CT pulmonary angiogram. No pulmonary embolus. Additional benign and/or incidental findings described above.
--- NOTE | 2016-06-30 19:48 | CON ---
DATE: 06/30/2016 REASON FOR CONSULTATION: Chest pain. The patient is a 65-year-old male who has history of hypertension, atrial fibrillation, pres ented because of chest pain and palpitation for 2 hours prior to his arrival to the Emergency Room. At this time, the patient is chest pain free. The patient was found to be in rapid atrial fibrillati on. The patient underwent cardiac catheterization 4 days ago at [facility] which revealed nono bstructive coronaries, distal left anterior descending artery diffuse % narrowing with normal le ft ventricular systolic function. At this time, the patient has tested positive for cocaine abuse. He is chest pain free at this time. CURRENT MEDICATIONS: Cardizem-CD 180 mg once a day, colchicine 0.6 mg daily, Cozaar 100 mg daily, Ca rdizem infusion at 5 mg per hour, aspirin 325 mg once a day, Eliquis 5 mg twice a day, Lipitor 40 mg once a day, Spiriva 18 mcg inhalation daily, Neurontin 300 mg a day. REVIEW OF SYSTEMS: No nausea or vomiting. No fever or chills. No syncope. PHYSICAL EXAMINATION: GENERAL: The patient is a middle-aged male who does not appear to be in any distress. VITAL SIGNS: Blood pressure 113/75, heart rate 61, temperature 98, respirations 20. HEENT: Normocephalic. NECK: No JVD. CHEST: Bilateral rhonchi. HEART: S1, S2 regular. EXTREMITIES: 2+ pitting edema. LABORATORIES: Hemoglobin and hematocrit, white count and platelet count are within normal limits. S MA-7 is within normal limits except for chloride of 109 and BUN of 24. Three sets of troponins are n egative. Lipid profile is within normal limits. Urine drug screen is positive for cocaine. EKG rev ealed atrial fibrillation at rate of 143 per minute. ASSESSMENT: 1. Atrial fibrillation with rapid ventricular response. 2. Cocaine abuse. 3. Nonobstructive coronary artery disease. 4. Rule out deep venous thrombosis and/or pulmonary embolism. RECOMMENDATIONS: Continue Cardizem-CD at 180 mg once a day, Cozaar at 100 mg once a day, aspirin 325 mg once a day. Continue Eliquis 5 mg twice a day. Continue IV Cardizem. Obtain CT angio of the est to rule out pulmonary embolism as well as venous Doppler of the lower extremities. Vicente Abdalla MD cc: [id number] TT: 06/30/2016 19:48:34 Confirmation # [id number] Dictation # [id number]
[2016-07-01] MEDS: Albuterol HFA 90 mcg/actuation (8 g) IH SCH ×3 (03:26→14:46)
[2016-07-01] MEDS: Tiotropium 18 mcg Cap For Inhalation IH SCH (08:23)
[2016-07-01] MEDS: Aspirin 325 mg EC Tablets PO SCH (08:23)
[2016-07-01] MEDS ORDERED: Midazolam 2 MG/2 ML VIAL ONE (11:34)
--- NOTE | 2016-07-01 15:32 | US ---
PROCEDURE: Bilateral lower extremity venous duplex Doppler. HISTORY: r/o DVT COMPARISON: None available. TECHNIQUE: Bilateral common femoral, superficial femoral, popliteal and posterior tibial veins were evaluated. Flow was assessed with color Doppler, compressibility, assessment of phasic flow and augmentation response. FINDINGS: COMMON FEMORAL VEIN: Right CFV: Unremarkable. Left CFV: Unremarkable. SUPERFICIAL FEMORAL VEIN: Right SFV: Unremarkable. Left SFV: Unremarkable. POPLITEAL VEIN: Right Popliteal: Unremarkable. Left Popliteal: Unremarkable. POSTERIOR TIBIAL VEIN: Right PTV: Unremarkable. Left PTV: Unremarkable. OTHER FINDINGS: Bilateral, lower extremity/calf edema IMPRESSION: No evidence of deep venous thrombosis.
[2016-07-01 16:00] VITALS: PULSE 80
[2016-07-01 16:27] VITALS: BP 156/79; RESP 18; TEMP 97.7; O2SAT 98
--- NOTE | 2016-07-01 16:35 | CP.PCM.DIS ---
Provider - Provider Date of Admission: 06/29/16 20:53 Attending physician: Carolina Ramirez MD Primary care physician: Dr Solis Consults: Cardiology(Dr Abdalla) Time Spent in preparation of Discharge (in minutes): 35 Diagnosis - Discharge Diagnosis (1) Chronic atrial fibrillation Status: Chronic Comment: S/P Cardizem drip at 5mg. C/W Diltiazem PO. Noncomplaint vs Cocaine abuse (2) Nonobstructive atherosclerosis of coronary artery Status: Chronic Comment: No ASA needed as per Cardio. Cath showed nonobstructive artery disease (3) Cocaine abuse Status: Chronic Comment: Encouraged to stop. Discussed with patient about [facility] program (4) Hypertension Status: Chronic Comment: Cont Lisinopril, HCTZ (5) Systolic CHF Status: Chronic Comment: EF 45%. Start Lasix 20mg daily for LE edema and small B/L pleural effusions Hospital Course - Lab Results Lab Results: Most Recent Lab Values WBC 7.4 K/uL (4.8-10.8) 06/29/16 20:13 RBC 4.61 Mil/uL (4.40-5.90) 06/29/16 20:13 Hgb 13.7 g/dL (12.0-18.0) 06/29/16 20:13 Hct 41.9 % (35.0-51.0) 06/29/16 20:13 MCV 90.9 fl (80.0-94.0) 06/29/16 20:13 MCH 29.7 pg (27.0-31.0) 06/29/16 20:13 MCHC 32.7 g/dL (33.0-37.0) L 06/29/16 20:13 RDW 15.4 % (11.5-14.5) H 06/29/16 20:13 Plt Count 169 K/uL (130-400) 06/29/16 20:13 MPV 10.1 fl (7.2-11.7) 06/29/16 20:13 Neut % (Auto) 65.7 % (50.0-75.0) 06/29/16 20:13 Lymph % (Auto) 19.8 % (20.0-40.0) L 06/29/16 20:13 Stark % (Auto) 10.0 % (0.0-10.0) 06/29/16 20:13 Eos % (Auto) 3.6 % (0.0-4.0) 06/29/16 20:13 Baso % (Auto) 0.9 % (0.0-2.0) 06/29/16 20:13 Neut # 4.8 K/uL (1.8-7.0) 06/29/16 20:13 Lymph # 1.5 K/uL (1.0-4.3) 06/29/16 20:13 Stark # 0.7 K/uL (0.0-0.8) 06/29/16 20:13 Eos # 0.3 K/uL (0.0-0.7) 06/29/16 20:13 Baso # 0.1 K/uL (0.0-0.2) 06/29/16 20:13 PT 10.7 SECONDS (9.6-11.2) 06/29/16 20:13 INR 1.03 (0.92-1.08) 06/29/16 20:13 APTT 26.5 SECONDS (23.3-32.5) 06/29/16 20:13 Sodium 142 mmol/l (132-148) 06/29/16 20:13 Potassium 4.4 MMOL/L (3.6-5.0) 06/29/16 20:13 Chloride 109 mmol/L (98-107) H 06/29/16 20:13 Carbon Dioxide 25 mmol/L (22-30) 06/29/16 20:13 Anion Gap 12 (10-20) 06/29/16 20:13 BUN 24 mg/dl (9-20) H 06/29/16 20:13 Creatinine 1.5 mg/dL (0.8-1.5) 06/29/16 20:13 Est GFR ( Amer) 57 06/29/16 20:13 Est GFR (Non-Af Amer) 47 06/29/16 20:13 Random Glucose 88 mg/dL (75-110) 06/29/16 20:13 Hemoglobin A1c 5.8 % (4.2-6.5) 06/30/16 05:15 Calcium 11.3 mg/dL (8.4-10.2) H 06/29/16 20:13 Total Bilirubin 0.5 mg/dl (0.2-1.3) 06/29/16 20:13 AST 28 U/L (17-59) 06/29/16 20:13 ALT 37 U/L (21-72) 06/29/16 20:13 Alkaline Phosphatase 115 U/L (38-126) 06/29/16 20:13 Troponin I < 0.0120 ng/mL (0.00-0.120) 06/30/16 11:50 NT-Pro-B Natriuret Pep 542 pg/ml (0-900) 07/01/16 05:20 Total Protein 7.1 G/DL (6.3-8.2) 06/29/16 20:13 Albumin 4.0 g/dL (3.5-5.0) 06/29/16 20:13 Globulin 3.1 gm/dL (2.2-3.9) 06/29/16 20:13 Albumin/Globulin Ratio 1.3 (1.0-2.1) 06/29/16 20:13 Triglycerides 94 mg/DL (0-149) 06/30/16 05:15 Cholesterol 91 mg/dL (0-199) 06/30/16 05:15 LDL Cholesterol Direct < 30 mg/dL (0-129) 06/30/16 05:15 HDL Cholesterol 50 MG/DL (30-70) 06/30/16 05:15 Urine Color Yellow (YELLOW) 06/29/16 22:10 Urine Clarity Clear (Clear) 06/29/16 22:10 Urine pH 5.0 (5.0-8.0) 06/29/16 22:10 Ur Specific [place] 1.015 (1.003-1.030) 06/29/16 22:10 Urine Protein Negative mg/dL (NEGATIVE) 06/29/16 22:10 Urine Glucose (UA) Neg mg/dL (Normal) 06/29/16 22:10 Urine Ketones Negative mg/dL (NEGATIVE) 06/29/16 22:10 Urine Blood Negative (NEGATIVE) 06/29/16 22:10 Urine Nitrate Negative (NEGATIVE) 06/29/16 22:10 Urine Bilirubin Negative (NEGATIVE) 06/29/16 22:10 Urine Urobilinogen 0.2-1.0 mg/dL (0.2-1.0) 06/29/16 22:10 Ur Leukocyte Esterase Neg Miek/uL (Negative) 06/29/16 22:10 Urine RBC (Auto) 1 /hpf (0-3) 06/29/16 22:10 Urine Microscopic WBC < 1 /hpf (0-5) 06/29/16 22:10 Urine Opiates Screen Negative (NEGATIVE) 06/29/16 22:10 Urine Methadone Screen Negative (NEGATIVE) 06/29/16 22:10 Ur Barbiturates Screen Negative (NEGATIVE) 06/29/16 22:10 Ur Phencyclidine Scrn Negative (NEGATIVE) 06/29/16 22:10 Ur Amphetamines Screen Negative (NEGATIVE) 06/29/16 22:10 U Benzodiazepines Scrn Negative (NEGATIVE) 06/29/16 22:10 U Oth Cocaine Metabols Positive (NEGATIVE) H 06/29/16 22:10 U Cannabinoids Screen Negative (NEGATIVE) 06/29/16 22:10 Alcohol, Quantitative < 10 mg/dl (0-10) 06/29/16 20:13 - Hospital Course Hospital Course: 65 y/o M with PMhx of chronic a.fib, HTN, CHF and cocaine abuse admitted to hosp after episode of CP and Palpitations. ACS was ruled out but patient was found to have A.fib with RVR and admitted to telemetry. He was initially treated with Cardizem drip at 5mg, responded well and yesterday it was DC because HR in low 60s, then PO cardizem was restarted. Patient has B/L chronic dependent edema. LE US and Chest CT angio were negative for DVT or PE. As per Cardio patient does not need ASA and is decided to DC with the following meds. Losartan [Cozaar] 100 mg PO DAILY diltiaZEM CD [Cardizem CD] 180 mg PO DAILY Atorvastatin [Lipitor] 40 mg PO HS Albuterol HFA [Ventolin HFA 90 2 puff IH [id number] Apixaban [Eliquis] 5 mg PO BID Colchicine [Colcrys] 0.6 mg PO DAILY Gabapentin [Neurontin] 300 mg PO BID Tiotropium [Spiriva] 18 mcg IH DAILY Discharge Exam - Head Exam Head Exam: ATRAUMATIC, NORMOCEPHALIC - Eye Exam Eye Exam: PERRL - ENT Exam ENT Exam: Mucous Membranes Moist - Respiratory Exam Respiratory Exam: NORMAL BREATHING PATTERN, UNREMARKABLE - Cardiovascular Exam Cardiovascular Exam: Irregular Rhythm, +S1, +S2, Systolic Murmur - GI/Abdominal Exam GI & Abdominal Exam: Normal Bowel Sounds, Unremarkable - Extremities Exam Extremities exam: normal capillary refill, pedal edema Additional comments: B/L pedal dependent edema. - Neurological Exam Neurological exam: Alert, Oriented x3, Reflexes Normal - Psychiatric Exam Psychiatric exam: Normal Affect, Normal Mood Discharge Plan - Discharge Medications Prescriptions: Furosemide [Lasix] 20 mg PO DAILY #30 udc - Follow Up Plan Condition: FAIR Disposition: HOME/ ROUTINE Additional Instructions: F/U with PMD Dr Solis in July 13/2017 Instructed to take meds as prescribed Encouraged to stop abusing cocaine and explained to patient about [facility] program
--- NOTE | 2016-07-01 16:51 | PN ---
DATE: 07/01/2016 SUBJECTIVE: The patient denies any chest pain or shortness of breath. PHYSICAL EXAMINATION: VITAL SIGNS: Blood pressure 156/79, heart rate 80, temperature 97.7, respirations 18. HEENT: Normocephalic. NECK: No JVD. CHEST: Clear. HEART: S1, S2 regular. EXTREMITIES: 1+ pitting edema. LABORATORIES: Three sets of troponins are negative. Venous Doppler of lower extremities, no DVT. ASSESSMENT: 1. Chronic atrial fibrillation. 2. Cocaine abuse. 3. Hypertension. 4. Nonobstructive artery disease. RECOMMENDATIONS: Case was discussed with the medical team, including Dr. Ramirez. The patient can be maintained on Cardizem-CD at 180 mg once a day, Cozaar at 100 mg once a day. Aspirin can be di scontinued. Eliquis will be maintained at 5 mg twice a day, Lipitor at 40 mg once a day. The patien t was strongly advised to abstain from future drug abuse. Vicente Abdalla MD cc: [id number] TT: 07/01/2016 16:51:10 Confirmation # [id number] Dictation # [id number]
--- NOTE | 2016-07-02 19:05 | CARD ---
APPROVED REPORT EKG Measurement Heart [id number] <Conclusion> Atrial fibrillation with rapid ventricular response Abnormal ECG
== END 2016-07-01 18:00 | disposition home or self-care (01) | DRG 544 ==
LOC: H.ER 19:33 → H.ERHOLD 20:53 → H.TEL 22:57
PROVIDERS: ADMIT Family Medicine Geriatric Medicine; ATTEND Family Medicine Geriatric Medicine
DX: I48.2 Chronic atrial fibrillation (principal); I50.22 Chronic systolic (congestive) heart failure; I13.0 Hypertensive heart and chronic kidney disease with heart failure and stage 1 through stage 4 chronic kidney disease, or unspecified chronic kidney disease; N18.3 Chronic kidney disease, stage 3 (moderate); F14.10 Cocaine abuse, uncomplicated; J44.9 Chronic obstructive pulmonary disease, unspecified; I25.10 Atherosclerotic heart disease of native coronary artery without angina pectoris; E78.5 Hyperlipidemia, unspecified; E78.00 Pure hypercholesterolemia, unspecified; M10.9 Gout, unspecified; J45.909 Unspecified asthma, uncomplicated; E83.52 Hypercalcemia; F17.210 Nicotine dependence, cigarettes, uncomplicated; Z91.14 Patient's other noncompliance with medication regimen; Z88.0 Allergy status to penicillin; Z86.73 Personal history of transient ischemic attack (TIA), and cerebral infarction without residual deficits; Z79.82 Long term (current) use of aspirin; Z79.01 Long term (current) use of anticoagulants

== ENCOUNTER 2016-07-02 20:11 | Emergency (ER) | payer MEDICAID ==
[2016-07-02 20:11] VITALS: PULSE 97; BMI 37.1
[2016-07-02 20:24] VITALS: TEMP 97.7; O2SAT 100
--- NOTE | 2016-07-02 20:42 | ED PDOC ---
HPI: Chest Pain Time Seen by Provider: 07/02/16 20:28 Chief Complaint (Nursing): Chest Pain History Per: Patient (presents to the ER because of acute onset of palpitations starting around 8p today (about 40 minutes ago). He said that he has been well today and has not had any complaints today at all. He denies fever, chills, nausea, vomiting, diarrhea. He reports being compliant with meds but does not know the names of any of them.) History/Exam Limitations: no limitations Onset/Duration Of Symptoms: Hrs (1), Sudden Onset Current Symptoms Are (Timing): Still Present Past Medical History Reviewed: Historical Data, Nursing Documentation, Vital Signs Vital Signs: Last Vital Signs Temp 97.7 F 07/02/16 20:22 Pulse 93 H 07/02/16 21:18 Resp 19 07/02/16 21:18 BP 149/94 H 07/02/16 21:18 Pulse Ox 100 07/02/16 21:18 - Medical History PMH: Asthma, Atrial Fibrillation, CAD, CHF, COPD, CVA, HTN, Hypercholesterolemia , Hyperthyroidism, Peripheral Edema Denies: Diabetes, HIV, Chronic Kidney Disease - Family History Family History: States: Unknown Family Hx, [place], Diabetes, Hypertension (mother) - Home Medications Home Medications: Ambulatory Orders Medication Instructions Recorded Losartan [Cozaar] 100 mg PO DAILY #0 tab 04/10/16 diltiaZEM CD [Cardizem CD] 180 mg PO DAILY #0 cap 04/10/16 Atorvastatin [Lipitor] 40 mg PO HS 05/03/16 Albuterol HFA [Ventolin HFA 90 2 puff IH [id number] #1 inhaler 06/02/16 mcg/actuation (8 g)] Apixaban [Eliquis] 5 mg PO BID #60 06/02/16 Colchicine [Colcrys] 0.6 mg PO DAILY #30 06/02/16 Gabapentin [Neurontin] 300 mg PO BID #60 06/02/16 Tiotropium [Spiriva] 18 mcg IH DAILY #30 cap 06/02/16 Furosemide [Lasix] 20 mg PO DAILY #30 udc 07/01/16 - Allergies Allergies/Adverse Reactions: Allergies Allergy/AdvReac Type Severity Reaction Status Date / Time Penicillins Allergy RASH Verified 07/02/16 20:22 Review of Systems ROS Statement: Except As Marked, All Systems Reviewed And Found Negative Constitutional: Negative for: Fever, Chills Cardiovascular: Positive for: Chest Pain. Negative for: Edema, Light Headedness Respiratory: Negative for: Cough, Shortness of Breath Gastrointestinal: Negative for: Nausea, Vomiting, Abdominal Pain, Diarrhea, Constipation Genitourinary Male: Negative for: Dysuria, Frequency Physical Exam - Reviewed Nursing Documentation Reviewed: Yes Vital Signs Reviewed: Yes - Physical Exam Appears: Positive for: Well, Non-toxic, No Acute Distress Head Exam: Positive for: ATRAUMATIC, NORMAL INSPECTION, NORMOCEPHALIC Skin: Positive for: Normal Color, Warm, DRY Eye Exam: Positive for: EOMI, Normal appearance, PERRL ENT: Positive for: Normal ENT Inspection Neck: Positive for: Normal, Painless ROM Cardiovascular/Chest: Positive for: Irregularly Irregular Respiratory: Positive for: CNT, Normal Breath Sounds Gastrointestinal/Abdominal: Positive for: Normal Exam, Bowel Sounds, Soft Back: Positive for: Normal Inspection Extremity: Positive for: Normal ROM Neurologic/Psych: Positive for: Alert, Oriented - Laboratory Results Result Diagrams: 07/02/16 20:55 07/02/16 20:55 - ECG ECG Rhythm: Positive for: Atrial Fibrillation (rate of 110-120; present in old EKGs) O2 Sat by Pulse Oximetry: 100 - Progress Re-evaluation Time: 22:13 Condition: Re-examined, Improved Medical Decision Making Medical Decision Making: LABS NORMAL. HR in the 90's. BP in normal range. Patient is feeling better. Will d/c Disposition - Clinical Impression Clinical Impression: Atrial fibrillation - Patient ED Disposition Is Patient to be Admitted: No Doctor Will See Patient In The: Office Counseled Patient/Family Regarding: Diagnosis, Need For Followup - Disposition Referrals: [facility] [Outside] Disposition: Routine/Home Disposition Time: 22:15 Condition: STABLE Instructions: Atrial Fibrillation (ED) - POA Present On Arrival: None
[2016-07-02] MEDS ORDERED: Sodium Chloride 0.45% 1,000 ML IV ONE (20:45)
[2016-07-02] MEDS ORDERED: Sodium Chloride 0.9% 1,000 ML IV STA (21:06)
[2016-07-02 21:22] LABS: BASO # 0.1 K/uL (0.0-0.2); BASO % 0.9 % (0.0-2.0); EOS # 0.3 K/uL (0.0-0.7); EOS % 3.1 % (0.0-4.0); HEMATOCRIT 43.7 % (35.0-51.0); LYMPH # 1.3 K/uL (1.0-4.3); LYMPH % 15.9 % (20.0-40.0); MEAN CELL VOLUME 91.7 fl (80.0-94.0); MEAN CORPUSCULAR HEMOGLOBIN 29.8 pg (27.0-31.0); MEAN CORPUSCULAR HGB CONC 32.5 g/dL (33.0-37.0); MEAN PLATELET VOLUME 10.7 fl (7.2-11.7); MONO # 0.8 K/uL (0.0-0.8); MONO % 9.4 % (0.0-10.0); NEUT % 70.7 % (50.0-75.0); NRBC % 0.1 % (0.0-0.0); RED CELL DISTRIBUTION WIDTH 15.4 % (11.5-14.5); WHITE BLOOD COUNT 8.5 K/uL (4.8-10.8)
[2016-07-02 21:34] LABS: ALB/GLOB RATIO 1.3 (1.0-2.1); ALKALINE PHOSPHATASE 122 U/L (38-126); ALT/SGPT 31 U/L (21-72); AST/SGOT 40 U/L (17-59); BILIRUBIN,TOTAL 1.1 mg/dl (0.2-1.3); BLOOD UREA NITROGEN 21 mg/dl (9-20); CALCIUM 10.8 mg/dL (8.4-10.2); CARBON DIOXIDE 23 mmol/L (22-30); CHLORIDE 109 mmol/L (98-107); GFR AFRICAN-AMERICAN > 60; GLUCOSE,RANDOM 89 mg/dL (75-110); SODIUM 141 mmol/l (132-148); TOTAL PROTEIN 7.7 G/DL (6.3-8.2)
[2016-07-02 21:35] LABS: POTASSIUM 4.7 MMOL/L (3.6-5.0)
[2016-07-02 21:43] LABS: PARTIAL THROMBOPLASTIN TIME 26.3 SECONDS (23.3-32.5)
[2016-07-02 22:56] VITALS: BP 155/82; PULSE 89; RESP 18
--- NOTE | 2016-07-03 11:45 | RAD ---
HISTORY: palpitations COMPARISON: Comparison chest 06/29/2016 TECHNIQUE: Chest PA and lateral FINDINGS: LUNGS: Suspect mild bibasilar atelectasis right greater than left PLEURA: No apparent pneumothorax. No significant effusion. Mild biapical pleural thickening CARDIOVASCULAR: Heart size is borderline/mildly enlarged. OSSEOUS STRUCTURES: Minor multilevel degenerative spondylosis of the thoracic spine. VISUALIZED UPPER ABDOMEN: Normal. OTHER FINDINGS: None. IMPRESSION: Suspect mild bibasilar atelectasis right greater than left Borderline/mild cardiomegaly.
== END 2016-07-02 22:40 | disposition home or self-care (01) ==
LOC: H.ER 20:11
DX: R00.2 Palpitations (principal); R07.89 Other chest pain; E05.90 Thyrotoxicosis, unspecified without thyrotoxic crisis or storm; E78.00 Pure hypercholesterolemia, unspecified; I10 Essential (primary) hypertension; I25.10 Atherosclerotic heart disease of native coronary artery without angina pectoris; I48.91 Unspecified atrial fibrillation; J44.9 Chronic obstructive pulmonary disease, unspecified; J45.909 Unspecified asthma, uncomplicated; Z79.01 Long term (current) use of anticoagulants; Z86.73 Personal history of transient ischemic attack (TIA), and cerebral infarction without residual deficits; Z88.0 Allergy status to penicillin

== ENCOUNTER 2016-07-11 09:58 | Observation (INO) | payer MEDICAID ==
[2016-07-11 09:59] VITALS: PULSE 97; BMI 37.1
[2016-07-11] MEDS ORDERED: Aspirin 325 mg EC Tablets PO STA (10:42)
[2016-07-11] MEDS ORDERED: Albuterol-Ipratrop 3 mg / 0.5 (3 ml) UD INH STA (10:46)
[2016-07-11] MEDS ORDERED: Aspirin 325 mg EC Tablets PO ONE (11:00)
[2016-07-11] MEDS ORDERED: Albuterol-Ipratrop 3 mg / 0.5 (3 ml) UD ONE (11:01)
[2016-07-11 11:03] LABS: BASO % 0.5 % (0.0-2.0); EOS # 0.4 K/uL (0.0-0.7); EOS % 4.7 % (0.0-4.0); HEMATOCRIT 44.4 % (35.0-51.0); LYMPH # 1.6 K/uL (1.0-4.3); LYMPH % 17.5 % (20.0-40.0); MEAN CELL VOLUME 91.9 fl (80.0-94.0); MEAN CORPUSCULAR HEMOGLOBIN 29.7 pg (27.0-31.0); MEAN CORPUSCULAR HGB CONC 32.3 g/dL (33.0-37.0); MEAN PLATELET VOLUME 10.7 fl (7.2-11.7); MONO # 0.8 K/uL (0.0-0.8); MONO % 8.6 % (0.0-10.0); NEUT # 6.1 K/uL (1.8-7.0); NEUT % 68.7 % (50.0-75.0); RED CELL DISTRIBUTION WIDTH 15.9 % (11.5-14.5); WHITE BLOOD COUNT 8.9 K/uL (4.8-10.8)
[2016-07-11] MEDS ORDERED: diltiaZEM 100 mg Vial ( ADD-VANTAGE ) IV ONE (11:06)
[2016-07-11 11:07] LABS: ABG ALLEN TEST YES; ARTERIAL BLOOD GAS HCO3 25.5 mmol/L (21-28); ARTERIAL BLOOD GAS O2 CAPACITY 19.6 mL/dL (16-24); ARTERIAL BLOOD GAS O2 CONTENT 18.9 ML/dL (15-23); ARTERIAL BLOOD GAS PO2 68 mm/Hg (80-100); ARTERIAL BLOOD HGB O2 SAT 91.9 % (95.0-98.0); CARBOXYHEMOGLOBIN 3.1 % (0.5-1.5); HHB 3.3 % (0.0-5.0); METHEMOGLOBIN 1.7 % (0.0-3.0)
--- NOTE | 2016-07-11 11:29 | ED PDOC ---
HPI: SOB/CHF/COPD Time Seen by Provider: 07/11/16 10:24 Chief Complaint (Nursing): Shortness Of Breath Chief Complaint (Provider): Chest Pain History Per: Patient History/Exam Limitations: no limitations Onset/Duration Of Symptoms: Days (x4) Current Symptoms Are (Timing): Still Present Initiating Event: Out Of Medications Severity: Mild Associated Symptoms: Chest Pain. denies: Fever Additional Complaint(s): Patient is a 65 year old male who has a history of CAD, presents to the ED complaining of chest pain x4 days. Pain is associated with shortness of breath, leg swelling, and palpitations. Patient states he left his medication at rehab and now he is currently at the senior care. Denies fever. PMD: [facility] Past Medical History Reviewed: Historical Data, Nursing Documentation, Vital Signs Vital Signs: Last Vital Signs Temp 97.9 F 07/11/16 10:17 Pulse 130 H 07/11/16 11:34 Resp 22 07/11/16 10:17 BP 144/81 07/11/16 11:24 Pulse Ox 99 07/11/16 11:34 - Medical History PMH: Asthma, Atrial Fibrillation, CAD, CHF, COPD, CVA, HTN, Hypercholesterolemia , Hyperthyroidism, Peripheral Edema Denies: Diabetes, HIV, Chronic Kidney Disease - Surgical History Other surgeries: foot surgery - Family History Family History: States: Unknown Family Hx, [place], Diabetes, Hypertension (mother) - Immunization History Hx Tetanus Toxoid Vaccination: No Hx Influenza Vaccination: No Hx Pneumococcal Vaccination: No - Home Medications Home Medications: Ambulatory Orders Medication Instructions Recorded Losartan [Cozaar] 100 mg PO DAILY #0 tab 04/10/16 diltiaZEM CD [Cardizem CD] 180 mg PO DAILY #0 cap 04/10/16 Atorvastatin [Lipitor] 40 mg PO HS 05/03/16 Albuterol HFA [Ventolin HFA 90 2 puff IH [id number] #1 inhaler 06/02/16 mcg/actuation (8 g)] Apixaban [Eliquis] 5 mg PO BID #60 06/02/16 Colchicine [Colcrys] 0.6 mg PO DAILY #30 06/02/16 Gabapentin [Neurontin] 300 mg PO BID #60 06/02/16 Tiotropium [Spiriva] 18 mcg IH DAILY #30 cap 06/02/16 Furosemide [Lasix] 20 mg PO DAILY #30 [facility] 07/01/16 - Allergies Allergies/Adverse Reactions: Allergies Allergy/AdvReac Type Severity Reaction Status Date / Time Penicillins Allergy RASH Verified 07/11/16 10:16 Review of Systems ROS Statement: Except As Marked, All Systems Reviewed And Found Negative Constitutional: Negative for: Fever Cardiovascular: Positive for: Chest Pain, Palpitations, Edema Respiratory: Positive for: Shortness of Breath Physical Exam - Reviewed Nursing Documentation Reviewed: Yes Vital Signs Reviewed: Yes - Physical Exam Appears: Positive for: Non-toxic, In Acute Distress (mild resp distress) Head Exam: Positive for: ATRAUMATIC, NORMAL INSPECTION, NORMOCEPHALIC Skin: Positive for: Normal Color, Warm, DRY Eye Exam: Positive for: Normal appearance, EOMI Neck: Positive for: Normal, Painless ROM Cardiovascular/Chest: Positive for: Irregularly Irregular. Negative for: Gallop , Murmur Respiratory: Positive for: Respiratory Distress (mild). Negative for: Normal Breath Sounds (course breath sounds bilaterally) Extremity: Positive for: Normal ROM Neurologic/Psych: Positive for: Alert, Oriented - Laboratory Results Result Diagrams: 07/11/16 10:53 07/11/16 10:53 - ECG ECG: Positive for: Interpreted By Me, Viewed By Me ECG Rhythm: Positive for: Normal QRS, Atrial Fibrillation (with RVR). Negative for: ST/T Changes Rate: 130 O2 Sat by Pulse Oximetry: 99 (RA) Pulse Ox Interpretation: Normal - Radiology X-Ray: Viewed By Me, Read By Radiologist X-Ray Interpretation: No Acute Disease - Critical Care Total Time (In Min): 30 Documented Critical Care: Time excludes all time spent performint seperately billable procedures Medical Decision Making Medical Decision Making: Time: 10.40 Impression: 1. Resp Distress 2. A Fib DDx: CHF exacerbation v COPD exacerbation v Afib with RVR Plan: EKG B-type natriuretic peptide BMP Drug Screen Troponin PTT/PT CXR Albuterol 3ml INH Aspirin 325 mg PO IVF Cardizem 20 mg IV Lasix 40 mg IV Methylprednisolone 125 mg IV NTG 0.4 mg SL Peak flow pre/post Tx Scribe Attestation Documented by Christen Haynes acting as a scribe for Mery Mazariegos MD Provider Attestation: All medical record entries made by the Scribe were at my direction and personally dictated by me. I have reviewed the chart and agree that the record accurately reflects my personal performance of the history, physical exam, medical decision making, and the department course for this patient. I have also personally directed, reviewed, and agree with the discharge instructions and disposition. Disposition - Clinical Impression Clinical Impression: Atrial fibrillation with RVR, CHF exacerbation, COPD exacerbation - Patient ED Disposition Is Patient to be Admitted: Yes Discussed With Dr.: Donita Aguilar Doctor Will See Patient In The: ED Counseled Patient/Family Regarding: Studies Performed, Diagnosis - Disposition Disposition Time: 12:14 Condition: FAIR - Pt Status Changed To: Hospital Disposition Of: Inpatient - Admit Certification Admit to Inpatient:: After my assessment, the patient will require hospitalization for at least two midnights. This is because of the severity of symptoms shown, intensity of services needed, and/or the medical risk in this patient being treated as an outpatient. - POA Present On Arrival: None
[2016-07-11 11:38] LABS: BLOOD UREA NITROGEN 19 mg/dl (9-20); CARBON DIOXIDE 28 mmol/L (22-30); CHLORIDE 108 mmol/L (98-107); GFR AFRICAN-AMERICAN > 60; GLUCOSE,RANDOM 83 mg/dL (75-110); POTASSIUM 4.7 MMOL/L (3.6-5.0); SODIUM 145 mmol/l (132-148)
[2016-07-11 11:57] LABS: PARTIAL THROMBOPLASTIN TIME 32.1 Seconds (25.6-37.1)
--- NOTE | 2016-07-11 12:08 | RAD ---
PROCEDURE: CHEST RADIOGRAPH, 1 VIEW HISTORY: chest pain COMPARISON: 07/02/2016 FINDINGS: LUNGS: Clear. PLEURA: No pneumothorax or pleural fluid seen. CARDIOVASCULAR: Mildly enlarged heart. OSSEOUS STRUCTURES: The osseous structures demonstrate degenerative changes. VISUALIZED UPPER ABDOMEN: Upper abdomen is suboptimally evaluated. OTHER FINDINGS: None. IMPRESSION: Clear lungs.
--- NOTE | 2016-07-11 13:30 | CP.PCM.HP ---
History of Present Illness - History of Present Illness History of Present Illness: 65 yo M w PMHx of HTN, Afib, COPD, HLD, gout, hyperparathyroid, hypercalcemia, and cocaine use is admitted due to chest pain and A-fib RVR in the setting of frequent chest pain and a 2016 echo showing an EF of 35-40%. 05/14/16 cardiac catheterization showed 50% obstruction of the LAD. Pt reports chest pain started on Tuesday with associated palpitations and SOB; states he left his medications at his second home on Tuesday so has not taken it since then. when pt was asked to clarify "second home" as I was under the impression he was homeless, he states he [facility] in the [place] [facility] and the other home Tuesday thru Tuesday. ED evaluation found pt to be in A-fib with RVR, at evaluation hin pain has resolved and pt is on Cardizem drip. does not have any other complaints. Present on Admission - Present on Admission Any Indicators Present on Admission: No Review of Systems - Review of Systems All systems: reviewed and no additional remarkable complaints except Review of Systems: Per HPI Past Patient History - Infectious Disease Hx of Infectious Diseases: None - Tetanus Immunizations Tetanus Immunization: Unknown - Past Medical History & Family History Past Medical History?: Yes - Past Social History Smoking Status: Former Smoker - CARDIAC Hx Atrial Fibrillation: Yes Hx Congestive Heart Failure: Yes Hx Hypercholesterolemia: Yes Hx Hypertension: Yes Hx Peripheral Edema: Yes - PULMONARY Hx Asthma: Yes Hx Chronic Obstructive Pulmonary Disease (COPD): Yes - NEUROLOGICAL Hx Neurological Disorder: Yes Hx Dizziness: Yes - HEENT Hx HEENT Problems: No - RENAL Hx Chronic Kidney Disease: No - ENDOCRINE/METABOLIC Hx Hyperthyroidism: Yes - HEMATOLOGICAL/ONCOLOGICAL Hx Human Immunodeficiency Virus (HIV): No - INTEGUMENTARY Hx Dermatological Problems: Yes - MUSCULOSKELETAL/RHEUMATOLOGICAL Hx Falls: No - GASTROINTESTINAL Hx Gastrointestinal Disorders: Yes Other/Comment: Hx Gastroenteritis - GENITOURINARY/GYNECOLOGICAL Hx Genitourinary Disorders: No - PSYCHIATRIC Hx Psychophysiologic Disorder: Yes Hx Substance Use: Yes - SURGICAL HISTORY Hx Surgeries: Yes Hx Orthopedic Surgery: Yes Other/Comment: Hx BILATERAL BUNIONECTOMY 1996 - ANESTHESIA Hx Anesthesia: Yes Hx Anesthesia Reactions: No Hx Malignant Hyperthermia: No Meds Allergies/Adverse Reactions: Allergies Allergy/AdvReac Type Severity Reaction Status Date / Time Penicillins Allergy RASH Verified 07/11/16 10:16 Physical Exam - Constitutional Appears: Non-toxic, No Acute Distress - Head Exam Head Exam: NORMOCEPHALIC - Eye Exam Eye Exam: Normal appearance - ENT Exam ENT Exam: Mucous Membranes Moist - Respiratory Exam Respiratory Exam: Clear to Auscultation Bilateral, NORMAL BREATHING PATTERN. absent: Wheezes - Cardiovascular Exam Cardiovascular Exam: Irregular Rhythm, +S1, +S2 - GI/Abdominal Exam GI & Abdominal Exam: Normal Bowel Sounds, Soft. absent: Tenderness - Extremities Exam Extremities exam: Positive for: pedal edema. Negative for: calf tenderness - Neurological Exam Neurological exam: Alert, CN II-XII Intact, Oriented x3 Results - Vital Signs Recent Vital Signs: Last Vital Signs Temp 97.9 F 07/11/16 10:17 Pulse 92 H 07/11/16 12:45 Resp 18 07/11/16 12:45 BP 132/71 07/11/16 12:45 Pulse Ox 98 07/11/16 12:45 - Labs Result Diagrams: 07/11/16 10:53 07/11/16 10:53 Assessment & Plan - Assessment and Plan (Free Text) Assessment: 65 yo M w PMHx of HTN, Afib, COPD, HLD, gout, hyperparathyroid, and cocaine use recently discharged from [facility] being re-admitted due to chest pain in the setting of frequent chest pain rule out ACS and a 2016 echo showing an EF of 35- 40%, and also pt in A-fib with RVR Plan: 1) Chest pain - r/o ACS -Pain is currently controlled Urine drug screen positive for cocaine, pt denies use, given history of aggressive use, urine could stay positive for up to 10 days, but also keep in mind, pt has history of initially denying use and later admitting it. -Troponin neg x1 -EKG: wnl -ASA 325mg PO Daily -Nitro SL PRN -f/u Serial Troponins -f/u Second EKG -Consider Cardiac Consult 2) Afib with RVR -Currently on Cardiziem drip -Eliquis 5mg PO daily -Cardizem 180 PO Daily to start in the morning -consider cardiology consult 3) HTN -Currently Controlled -Losartan 100 PO Daily -Cardizem 180 PO Daily 4) CKD Stage 3 -Chronic -f/u kidney functions 5) COPD/Asthma -Ventolin HFA 2puff Q4hrs PRN 6) Hyperlipidemia -Lipitor 40mg PO Daily 7) Cocaine abuse -Urine currently positive for cocaine -Extensive h/o cocaine use -No signs of withdrawal -f/u Withdrawal signs 8) DVT Prophylaxis -Eliquis 5mg PO daily -SCDs
[2016-07-11] MEDS: Albuterol HFA 90 mcg/actuation (8 g) IH SCH ×2 (15:00→16:20)
[2016-07-12 06:52] LABS: HEMATOCRIT 43.7 % (35.0-51.0); MEAN CELL VOLUME 91.4 fl (80.0-94.0); MEAN CORPUSCULAR HEMOGLOBIN 29.5 pg (27.0-31.0); MEAN CORPUSCULAR HGB CONC 32.2 g/dL (33.0-37.0); RED CELL DISTRIBUTION WIDTH 15.8 % (11.5-14.5); WHITE BLOOD COUNT 12.5 K/uL (4.8-10.8)
[2016-07-12 06:58] LABS: ALB/GLOB RATIO 1.3 (1.0-2.1); ALKALINE PHOSPHATASE 118 U/L (38-126); ALT/SGPT 30 U/L (21-72); AST/SGOT 22 U/L (17-59); BILIRUBIN,TOTAL 0.8 mg/dl (0.2-1.3); BLOOD UREA NITROGEN 22 mg/dl (9-20); CARBON DIOXIDE 26 mmol/L (22-30); CHLORIDE 106 mmol/L (98-107); GFR AFRICAN-AMERICAN > 60; GLUCOSE,RANDOM 113 mg/dL (75-110); POTASSIUM 4.6 MMOL/L (3.6-5.0); SODIUM 140 mmol/l (132-148); TOTAL PROTEIN 7.2 G/DL (6.3-8.2)
[2016-07-12] MEDS ORDERED: Albuterol-Ipratrop 3 mg / 0.5 (3 ml) UD INH STA (07:15)
--- NOTE | 2016-07-12 07:20 | CP.PCM.PN ---
Subjective - Date & Time of Evaluation Date of Evaluation: 07/12/16 Time of Evaluation: 07:19 - Subjective Subjective: Patient seen and examined bedside, report improvement of symptoms. No chest pain , +dyspnea, pedal edema has improved. Patient coughing and +wheezing on exam, duoneb tx STAT. Objective - Vital Signs/Intake and Output Vital Signs (last 24 hours): Temp Pulse Resp BP Pulse Ox 97.8 F 80 20 135/84 97 07/12/16 05:14 07/12/16 05:14 07/12/16 05:14 07/12/16 05:14 07/12/16 05:14 - Medications Medications: Current Medications Albuterol (Ventolin Hfa 90 Mcg/Actuation (8 G)) 2 puff IH RQ6 [facility] Last Admin: 07/11/16 16:20 Dose: 2 puff Albuterol/Ipratropium (Duoneb 3 Mg/0.5 Mg (3 Ml) Ud) 3 ml INH STAT STA Stop: 07/12/16 07:16 Apixaban (Eliquis) 5 mg PO BID EARL PRN Reason: Protocol Last Admin: 07/11/16 16:20 Dose: 5 mg Atorvastatin Calcium (Lipitor) 40 mg PO HS [facility] Last Admin: 07/11/16 21:55 Dose: 40 mg Colchicine (Colocrys) 0.6 mg PO DAILY EARL Diltiazem HCl (Cardizem Cd) 180 mg PO DAILY [facility] Furosemide (Lasix) 20 mg PO DAILY [facility] Gabapentin (Neurontin) 300 mg PO BID [facility] Last Admin: 07/11/16 16:21 Dose: 300 mg Diltiazem HCl 125 mg/ Sodium (Chloride) 125 mls @ 5 mls/hr IV .Q24H ONE; 5 MG/ HR PRN Reason: Protocol Stop: 07/12/16 10:42 Last Admin: 07/12/16 06:56 Dose: 5 mg/hr, 5 mls/hr Losartan Potassium (Cozaar) 100 mg PO DAILY [facility] Tiotropium Linch (Spiriva) 18 mcg IH DAILY [facility] - Labs Labs: 07/12/16 05:15 07/12/16 05:15 PT 12.2 Seconds (9.8-13.1) 07/11/16 10:53 INR 1.1 (0.9-1.2) 07/11/16 10:53 APTT 32.1 Seconds (25.6-37.1) 07/11/16 10:53 - Constitutional Appears: Well, No Acute Distress - Head Exam Head Exam: NORMAL INSPECTION - Eye Exam Eye Exam: Normal appearance - Respiratory Exam Respiratory Exam: Wheezes, NORMAL BREATHING PATTERN Additional comments: cough+, non productive. - Cardiovascular Exam Cardiovascular Exam: +S1, +S2 Additional comments: afib, HR 70s - GI/Abdominal Exam GI & Abdominal Exam: Soft, Normal Bowel Sounds. absent: Tenderness - Extremities Exam Extremities Exam: Pedal Edema (+2 pitting edema, bilateral legs up to knee.) - Neurological Exam Neurological Exam: Alert, Awake, CN II-XII Intact, Oriented x3 Assessment and Plan - Assessment and Plan (Free Text) Assessment: 65 yo M w PMHx of HTN, Afib, COPD, HLD, gout, hyperparathyroid, and cocaine use recently discharged from [facility] being re-admitted due to chest pain likely secondary to cocaine abuse also with A-fib with RVR. Patient bilateral pitting edema improved. Chest pain resolved. Plan: 1) Chest pain - r/o ACS -Pain is currently controlled, chest pain resolved. -Troponin neg x3 -EKG: wnl -ASA 325mg PO Daily -Nitro SL PRN 2) Afib with RVR -Currently on Cardiziem drip -Eliquis 5mg PO daily -Cardizem 180 PO Daily to start in the morning 3) HTN -Currently Controlled -Losartan 100 PO Daily -Cardizem 180 PO Daily 4) CKD Stage 3 -Chronic -BUN/Cr: 22/1.2 5) COPD/Asthma -Ventolin HFA 2puff Q4hrs PRN -Spiriva 18mcg daily 6) Hyperlipidemia -Lipitor 40mg PO Daily 7) Cocaine abuse -Urine currently positive for cocaine -Extensive h/o cocaine use -No signs of withdrawal 8) DVT Prophylaxis -Eliquis 5mg PO daily -SCDs
--- NOTE | 2016-07-12 07:41 | CARD ---
APPROVED REPORT EKG Measurement Heart [id number] <Conclusion> Atrial fibrillation with rapid ventricular response Abnormal ECG
[2016-07-12] MEDS: Albuterol HFA 90 mcg/actuation (8 g) IH SCH ×2 (08:58→16:27)
[2016-07-12] MEDS ORDERED: Tiotropium 18 mcg Cap For Inhalation IH SCH (09:00)
[2016-07-12] MEDS ORDERED: diltiaZEM 180 mg/24 Hours CD Cap PO SCH (09:00)
[2016-07-12 12:24] VITALS: RESP 18
[2016-07-12 15:39] VITALS: BP 111/73; PULSE 76; TEMP 97.7; O2SAT 100
--- NOTE | 2016-07-12 17:06 | CP.PCM.DIS ---
Provider - Provider Date of Admission: 07/11/16 12:14 Attending physician: Norma Mejía MD Consults: Social work Time Spent in preparation of Discharge (in minutes): 30 Hospital Course - Lab Results Lab Results: Most Recent Lab Values WBC 12.5 K/uL (4.8-10.8) H 07/12/16 05:15 RBC 4.78 Mil/uL (4.40-5.90) 07/12/16 05:15 Hgb 14.1 g/dL (12.0-18.0) 07/12/16 05:15 Hct 43.7 % (35.0-51.0) 07/12/16 05:15 MCV 91.4 fl (80.0-94.0) 07/12/16 05:15 MCH 29.5 pg (27.0-31.0) 07/12/16 05:15 MCHC 32.2 g/dL (33.0-37.0) L 07/12/16 05:15 RDW 15.8 % (11.5-14.5) H 07/12/16 05:15 Plt Count 151 K/uL (130-400) 07/12/16 05:15 MPV 10.7 fl (7.2-11.7) 07/11/16 10:53 Neut % (Auto) 68.7 % (50.0-75.0) 07/11/16 10:53 Lymph % (Auto) 17.5 % (20.0-40.0) L 07/11/16 10:53 [place] % (Auto) 8.6 % (0.0-10.0) 07/11/16 10:53 Eos % (Auto) 4.7 % (0.0-4.0) H 07/11/16 10:53 Baso % (Auto) 0.5 % (0.0-2.0) 07/11/16 10:53 Neut # 6.1 K/uL (1.8-7.0) 07/11/16 10:53 Lymph # 1.6 K/uL (1.0-4.3) 07/11/16 10:53 [place] # 0.8 K/uL (0.0-0.8) 07/11/16 10:53 Eos # 0.4 K/uL (0.0-0.7) 07/11/16 10:53 Baso # 0.0 K/uL (0.0-0.2) 07/11/16 10:53 PT 12.2 Seconds (9.8-13.1) 07/11/16 10:53 INR 1.1 (0.9-1.2) 07/11/16 10:53 APTT 32.1 Seconds (25.6-37.1) 07/11/16 10:53 pCO2 42 mm/Hg (35-45) 07/11/16 11:00 pO2 68 mm/Hg (80-100) L 07/11/16 11:00 HCO3 25.5 mmol/L (21-28) 07/11/16 11:00 ABG pH 7.40 (7.35-7.45) 07/11/16 11:00 ABG Total CO2 27.3 mmol/L (22-28) 07/11/16 11:00 ABG O2 Saturation 96.5 % (95-98) 07/11/16 11:00 ABG O2 Content 18.9 ML/dL (15-23) 07/11/16 11:00 ABG Base Excess 1.0 mmol/L (-2.0-3.0) 07/11/16 11:00 ABG Hemoglobin 14.6 g/dL (11.7-17.4) 07/11/16 11:00 ABG Carboxyhemoglobin 3.1 % (0.5-1.5) H 07/11/16 11:00 POC ABG HHb (Measured) 3.3 % (0.0-5.0) 07/11/16 11:00 ABG Methemoglobin 1.7 % (0.0-3.0) 07/11/16 11:00 ABG O2 Capacity 19.6 mL/dL (16-24) 07/11/16 11:00 [place] Test Yes 07/11/16 11:00 A-a O2 Difference 29.0 mm/Hg 07/11/16 11:00 Hgb O2 Saturation 91.9 % (95.0-98.0) L 07/11/16 11:00 FiO2 21.0 % 07/11/16 11:00 Sodium 140 mmol/l (132-148) 07/12/16 05:15 Potassium 4.6 MMOL/L (3.6-5.0) 07/12/16 05:15 Chloride 106 mmol/L (98-107) 07/12/16 05:15 Carbon Dioxide 26 mmol/L (22-30) 07/12/16 05:15 Anion Gap 13 (10-20) 07/12/16 05:15 BUN 22 mg/dl (9-20) H 07/12/16 05:15 Creatinine 1.2 mg/dL (0.8-1.5) 07/12/16 05:15 Est GFR ( Amer) > 60 07/12/16 05:15 Est GFR (Non-Af Amer) > 60 07/12/16 05:15 POC Glucose (mg/dL) 117 mg/dL (65-110) H 07/11/16 10:12 Random Glucose 113 mg/dL (75-110) H 07/12/16 05:15 Calcium 11.0 mg/dL (8.4-10.2) H 07/12/16 05:15 Total Bilirubin 0.8 mg/dl (0.2-1.3) 07/12/16 05:15 AST 22 U/L (17-59) 07/12/16 05:15 ALT 30 U/L (21-72) 07/12/16 05:15 Alkaline Phosphatase 118 U/L (38-126) 07/12/16 05:15 Troponin I < 0.0120 ng/mL (0.00-0.120) 07/12/16 05:15 NT-Pro-B Natriuret Pep 880 pg/ml (0-900) 07/11/16 10:53 Total Protein 7.2 G/DL (6.3-8.2) 07/12/16 05:15 Albumin 4.1 g/dL (3.5-5.0) 07/12/16 05:15 Globulin 3.2 gm/dL (2.2-3.9) 07/12/16 05:15 Albumin/Globulin Ratio 1.3 (1.0-2.1) 07/12/16 05:15 Urine Opiates Screen Negative (NEGATIVE) 07/11/16 11:40 Urine Methadone Screen Negative (NEGATIVE) 07/11/16 11:40 Ur Barbiturates Screen Negative (NEGATIVE) 07/11/16 11:40 Ur Phencyclidine Scrn Negative (NEGATIVE) 07/11/16 11:40 Ur Amphetamines Screen Negative (NEGATIVE) 07/11/16 11:40 U Benzodiazepines Scrn Negative (NEGATIVE) 07/11/16 11:40 U Oth Cocaine Metabols Positive (NEGATIVE) H 07/11/16 11:40 U Cannabinoids Screen Negative (NEGATIVE) 07/11/16 11:40 - Hospital Course Hospital Course: 65 year old male with hx of HTN, Afib, COPD, HLD, gout, hyperparathyroid, hypercalcemia, and cocaine use admitted for chest pain secondary to cocaine abuse. Patients EKG afib with RVR, tachycardic, rate controlled on cardizem drip. Troponins negative x 3. Patient had + nonproductive cough, + wheezing treated with duonebs with improvement of symptoms. CXR: negative. Pedal edema present on admission, improved after administration of Lasix IV. Patient attends Day Care: [facility], #[phone], [facility]. Discussed with patient importance of d/c illicit drug abuse as well as compliance with current medications. Discharge Exam - Head Exam Head Exam: NORMAL INSPECTION - Eye Exam Eye Exam: Normal appearance - ENT Exam ENT Exam: Mucous Membranes Moist - Respiratory Exam Respiratory Exam: Clear to PA & Lateral, NORMAL BREATHING PATTERN - Cardiovascular Exam Cardiovascular Exam: +S1, +S2 Additional comments: afib, HR 70s - GI/Abdominal Exam GI & Abdominal Exam: Normal Bowel Sounds, Soft, Unremarkable. absent: Tenderness - Extremities Exam Extremities exam: pedal edema (improved, +2) - Neurological Exam Neurological exam: Alert, CN II-XII Intact, Oriented x3 Discharge Plan - Follow Up Plan Condition: FAIR Disposition: HOME/ ROUTINE Patient education suggested?: Yes Instructions: Cocaine Abuse (DC) Additional Instructions: Patient to follow up at [facility] with Dr. King on July 15, 2016 at 10:20 AM.
== END 2016-07-12 17:30 | disposition home or self-care (01) ==
LOC: H.ER 09:58 → INTOOBSV 12:14 → H.ERHOLD 12:14 → H.TEL 14:08
PROVIDERS: ADMIT Family Medicine; ATTEND Family Medicine
DX: T40.5X1A Poisoning by cocaine, accidental (unintentional), initial encounter (principal); F14.10 Cocaine abuse, uncomplicated; R07.9 Chest pain, unspecified; Z88.0 Allergy status to penicillin; I48.91 Unspecified atrial fibrillation; J45.909 Unspecified asthma, uncomplicated; I25.10 Atherosclerotic heart disease of native coronary artery without angina pectoris; Z98.61 Coronary angioplasty status; I50.9 Heart failure, unspecified; J44.9 Chronic obstructive pulmonary disease, unspecified; Z86.73 Personal history of transient ischemic attack (TIA), and cerebral infarction without residual deficits; E78.00 Pure hypercholesterolemia, unspecified; E78.5 Hyperlipidemia, unspecified; M10.9 Gout, unspecified; E21.3 Hyperparathyroidism, unspecified; I13.0 Hypertensive heart and chronic kidney disease with heart failure and stage 1 through stage 4 chronic kidney disease, or unspecified chronic kidney disease; N18.3 Chronic kidney disease, stage 3 (moderate)

== ENCOUNTER 2016-07-20 19:27 | Observation (INO) | payer MEDICAID ==
[2016-07-20 19:27] VITALS: PULSE 97; BMI 37.1
--- NOTE | 2016-07-20 19:54 | ED PDOC ---
HPI: SOB/CHF/COPD Time Seen by Provider: 07/20/16 19:42 Chief Complaint (Nursing): Shortness Of Breath Chief Complaint (Provider): chest pain History Per: Patient History/Exam Limitations: no limitations Onset/Duration Of Symptoms: Hrs (1), Sudden Onset Quality: "Pain" (LEFT sided) Current Respiratory Medications: None Associated Symptoms: Ankle/Leg Swelling, Dizziness, Light-headedness. denies: Fever, Chills Similar Symptoms Previously: Similar to previous episodes of atrial fib Recently: Hospitalized Additional Complaint(s): Reports compliance w medications. Denies drug use Was walking outdoors (>95 degree heat) when started. PMD: [facility] [place] Past Medical History Reviewed: Historical Data, Nursing Documentation, Vital Signs Vital Signs: Last Vital Signs Temp 97.4 F L 07/20/16 19:38 Pulse 105 H 07/20/16 19:38 Resp 16 07/20/16 19:38 BP 136/83 07/20/16 19:38 Pulse Ox 99 07/20/16 19:54 - Medical History PMH: Asthma, Atrial Fibrillation, CAD, CHF, COPD, CVA, HTN, Hypercholesterolemia , Hyperthyroidism, Peripheral Edema Denies: Diabetes, HIV, Chronic Kidney Disease - Family History Family History: States: [place], Diabetes, Hypertension (mother) - Social History Current smoker - smoking cessation education provided: Yes Drugs: Cocaine (in the past, denies use today) - Immunization History Hx Tetanus Toxoid Vaccination: No Hx Influenza Vaccination: No Hx Pneumococcal Vaccination: No - Home Medications Home Medications: Ambulatory Orders Medication Instructions Recorded Losartan [Cozaar] 100 mg PO DAILY #0 tab 04/10/16 [id number] CD [Cardizem CD] 180 mg PO DAILY #0 cap 04/10/16 Atorvastatin [Lipitor] 40 mg PO HS 05/03/16 Albuterol HFA [Ventolin HFA 90 2 puff IH [id number] #1 inhaler 06/02/16 mcg/actuation (8 g)] Apixaban [Eliquis] 5 mg PO BID #60 06/02/16 Colchicine [Colcrys] 0.6 mg PO DAILY #30 06/02/16 Gabapentin [Neurontin] 300 mg PO BID #60 06/02/16 Tiotropium [Spiriva] 18 mcg IH DAILY #30 cap 06/02/16 Furosemide [Lasix] 20 mg PO DAILY [place]30 [facility] [place] - Allergies Allergies/Adverse Reactions: Allergies Allergy/AdvReac Type Severity Reaction Status Date / Time Penicillins Allergy RASH Verified 07/20/16 19:38 Review of Systems ROS Statement: Except As Marked, All Systems Reviewed And Found Negative (and as per HPI) Cardiovascular: Positive for: Chest Pain, Edema, Light Headedness Respiratory: Positive for: Cough, Shortness of Breath, SOB with Exertion Physical Exam - Reviewed Nursing Documentation Reviewed: Yes Vital Signs Reviewed: Yes - Physical Exam Appears: Positive for: Uncomfortable, In Acute Distress Head Exam: Positive for: ATRAUMATIC, NORMOCEPHALIC Skin: Positive for: Warm, Dry Eye Exam: Positive for: EOMI, PERRL ENT: Positive for: Pharynx Is (clear), Other Neck: Positive for: Painless ROM, Supple Cardiovascular/Chest: Positive for: Chest Non Tender, Edema, Tachycardia, Irregularly Irregular Respiratory: Positive for: Rales, Respiratory Distress Gastrointestinal/Abdominal: Positive for: Bowel Sounds, Soft. Negative for: Tenderness Back: Positive for: Normal Inspection. Negative for: Vertebral Tenderness Extremity: Positive for: Normal ROM, Pedal Edema Lymphatic: Negative for: Adenopathy Neurologic/Psych: Positive for: Alert. Negative for: Motor/Sensory Deficits - ECG O2 Sat by Pulse Oximetry: 99
[2016-07-20 20:28] LABS: BASO % 0.7 % (0.0-2.0); EOS # 0.3 K/uL (0.0-0.7); EOS % 4.1 % (0.0-4.0); HEMATOCRIT 42.6 % (35.0-51.0); LYMPH # 1.4 K/uL (1.0-4.3); LYMPH % 21.9 % (20.0-40.0); MEAN CELL VOLUME 90.4 fl (80.0-94.0); MEAN CORPUSCULAR HEMOGLOBIN 29.2 pg (27.0-31.0); MEAN CORPUSCULAR HGB CONC 32.2 g/dL (33.0-37.0); MEAN PLATELET VOLUME 10.2 fl (7.2-11.7); MONO # 0.7 K/uL (0.0-0.8); MONO % 10.4 % (0.0-10.0); NEUT % 62.9 % (50.0-75.0); RED CELL DISTRIBUTION WIDTH 15.6 % (11.5-14.5); WHITE BLOOD COUNT 6.4 K/uL (4.8-10.8)
[2016-07-20 20:37] LABS: PARTIAL THROMBOPLASTIN TIME 31.2 Seconds (25.6-37.1)
[2016-07-20 20:47] LABS: ALB/GLOB RATIO 1.2 (1.0-2.1); ALKALINE PHOSPHATASE 102 U/L (38-126); ALT/SGPT 31 U/L (21-72); AST/SGOT 21 U/L (17-59); BILIRUBIN,TOTAL 0.4 mg/dl (0.2-1.3); BLOOD UREA NITROGEN 16 mg/dl (9-20); CALCIUM 10.3 mg/dL (8.4-10.2); CARBON DIOXIDE 24 mmol/L (22-30); CHLORIDE 110 mmol/L (98-107); GFR AFRICAN-AMERICAN > 60; GLUCOSE,RANDOM 109 mg/dL (75-110); MAGNESIUM 2.4 MG/DL (1.6-2.3); PHOSPHOROUS 2.2 mg/dl (2.5-4.5); SODIUM 143 mmol/l (132-148); TOTAL PROTEIN 6.9 G/DL (6.3-8.2)
[2016-07-20 21:18] LABS: THYROID STIMULATING HORMONE 1.51 mIU/ML (0.46-4.68)
--- NOTE | 2016-07-20 22:14 | CP.PCM.HP ---
History of Present Illness - History of Present Illness History of Present Illness: CC: Palpitations w/ SOB 65M known to [facility] presenting with acute onset of palpitations with associated SOB but denies experiencing chest pain after having been off of medications for known atrial fibrillation after cocaine use 4 days prior. Patient denies any fevers, chills, N/V, abdominal pain, diarrhea, dysuria. PMH: sCHF, A-fib, HTN, COPD, Primary Hyperparathyroidism, LEFT cerebellar infarct, LEFT adrenal mass, Cocaine Abuse, Gout, Metabolic Syndrome PSH: b/l bunionectomy (1994), PCI- LAD 50% w/o stent Social: Homeless Smoke: Yes, 2 cigs/day Alcohol: Denies Drugs: Cocaine only as per patient ALL: PCN- anaphylaxis RENETTA: See Med Rec ED COURSE VSS: 36.3- 105(IRR)- 136/83- 16- 99% CBC: 6.4>13.8/42.6<160 CMP: 143/4.0- 110/24- 16/1.4, Ca- 10.3, Gluc-109, TBili- 0.4, ALP/AST/ALT- 102/ 21/31, TProt/Alb- 6.9/3.8 Trop #1: <0.0120 Utox: PENDING EKG: A-flutter rate-131 Cardizem 20mg, IVP x1 Cardizem Drip Present on Admission - Present on Admission Any Indicators Present on Admission: No Review of Systems - Cardiovascular Cardiovascular: Chest Pain, Dyspnea, Palpitations Past Patient History - Infectious Disease Hx of Infectious Diseases: None - Tetanus Immunizations Tetanus Immunization: Unknown - Past Medical History & Family History Past Medical History?: Yes - Past Social History Drugs: Cocaine (in the past, denies use today) - CARDIAC Hx Atrial Fibrillation: Yes Hx Congestive Heart Failure: Yes Hx Hypercholesterolemia: Yes Hx Hypertension: Yes Hx Peripheral Edema: Yes - PULMONARY Hx Asthma: Yes Hx Chronic Obstructive Pulmonary Disease (COPD): Yes - NEUROLOGICAL Hx Neurological Disorder: Yes Hx Dizziness: Yes - HEENT Hx HEENT Problems: No - RENAL Hx Chronic Kidney Disease: No - ENDOCRINE/METABOLIC Hx Hyperthyroidism: Yes - HEMATOLOGICAL/ONCOLOGICAL Hx Human Immunodeficiency Virus (HIV): No - INTEGUMENTARY Hx Dermatological Problems: Yes - MUSCULOSKELETAL/RHEUMATOLOGICAL Hx Falls: No - GASTROINTESTINAL Hx Gastrointestinal Disorders: Yes Other/Comment: Hx Gastroenteritis - GENITOURINARY/GYNECOLOGICAL Hx Genitourinary Disorders: No - PSYCHIATRIC Hx Psychophysiologic Disorder: Yes Hx Substance Use: Yes - SURGICAL HISTORY Hx Surgeries: Yes Hx Orthopedic Surgery: Yes Other/Comment: Hx BILATERAL BUNIONECTOMY 1996 - ANESTHESIA Hx Anesthesia: Yes Hx Anesthesia Reactions: No Hx Malignant Hyperthermia: No Meds Allergies/Adverse Reactions: Allergies Allergy/AdvReac Type Severity Reaction Status Date / Time Penicillins Allergy RASH Verified 07/20/16 19:38 Physical Exam - Constitutional Appears: Non-toxic, No Acute Distress, Older Than Stated Age, Chronically Ill - Head Exam Head Exam: ATRAUMATIC, NORMAL INSPECTION - Eye Exam Eye Exam: EOMI, PERRL - ENT Exam ENT Exam: Mucous Membranes Moist, Normal Exam - Respiratory Exam Respiratory Exam: Rhonchi (scattered throughout b/l), Wheezes, NORMAL BREATHING PATTERN. absent: Rales - Cardiovascular Exam Cardiovascular Exam: Irregular Rhythm. absent: JVD - GI/Abdominal Exam GI & Abdominal Exam: Normal Bowel Sounds, Soft. absent: Tenderness - Extremities Exam Extremities exam: Positive for: calf tenderness (chronic b/l), normal capillary refill, pedal edema. Negative for: normal inspection (skin changes c/w venous stasis disease) - Neurological Exam Neurological exam: Alert, Oriented x3 - Psychiatric Exam Psychiatric exam: Normal Affect, Normal Mood - Skin Skin Exam: Dry, Warm Results - Vital Signs Recent Vital Signs: Last Vital Signs Temp 36.3 C L 07/20/16 19:38 Pulse 88 07/20/16 20:32 Resp 16 07/20/16 20:32 BP 125/86 07/20/16 20:32 Pulse Ox 99 07/20/16 20:32 - Labs Result Diagrams: 07/20/16 20:16 07/20/16 20:16 Assessment & Plan (1) Atrial fibrillation with RVR Assessment and Plan: Rate-controlled at the time of evaluation on cardizem drip and no longer experiencing palpitations or SOB. Confirms last cocaine use 4 days ago, not taking medications. Initial Troponin negative, Utox positive for cocaine. - Cardizem drip as per protocol, wean off tomorrow - serial Troponins - Repeat EKG - Resume Eliquis - HOLD PO Cardizem at this time Status: Acute (2) DVT prophylaxis Assessment and Plan: Currently anticoagulated with Eliquis. - Resume Eliquis 5mg, PO, BID Status: Acute (3) COPD (chronic obstructive pulmonary disease) Assessment and Plan: Chronic, stable. - Resume Spiriva - Resume Ventolin Status: Chronic (4) Gout Assessment and Plan: Stable - Resume colchicine Status: Chronic (5) Heart failure, systolic, chronic Assessment and Plan: Chronic, stable - c/w Losartan - HOLD PO Cardizem for now Status: Chronic (6) Hyperparathyroidism Assessment and Plan: Patient currently stable and not a good candidate for surgery at this time, but may consider ENT consult in the future. May consider Sensipar. Status: Chronic (7) Hypertension Assessment and Plan: Chronic, controlled - Resume Losartan Status: Chronic
[2016-07-21] MEDS ORDERED: Potassium & Sodium Phosphate PO ONE (01:18)
[2016-07-21] MEDS: Albuterol HFA 90 mcg/actuation (8 g) IH SCH ×2 (01:21→08:55)
[2016-07-21 06:50] LABS: HEMATOCRIT 42.4 % (35.0-51.0); MEAN CELL VOLUME 92.4 fl (80.0-94.0); MEAN CORPUSCULAR HEMOGLOBIN 29.3 pg (27.0-31.0); MEAN CORPUSCULAR HGB CONC 31.7 g/dL (33.0-37.0); RED CELL DISTRIBUTION WIDTH 15.7 % (11.5-14.5); WHITE BLOOD COUNT 6.2 K/uL (4.8-10.8)
[2016-07-21 07:24] LABS: BLOOD UREA NITROGEN 15 mg/dl (9-20); CALCIUM 10.5 mg/dL (8.4-10.2); CARBON DIOXIDE 28 mmol/L (22-30); CHLORIDE 108 mmol/L (98-107); GFR AFRICAN-AMERICAN 57; GLUCOSE,RANDOM 73 mg/dL (75-110); POTASSIUM 4.3 MMOL/L (3.6-5.0); SODIUM 144 mmol/l (132-148)
[2016-07-21] MEDS ORDERED: Albuterol-Ipratrop 3 mg / 0.5 (3 ml) UD INH STA (07:48)
[2016-07-21 08:55] VITALS: BP 154/91; RESP 20; TEMP 97.2; O2SAT 98
[2016-07-21] MEDS ORDERED: Tiotropium 18 mcg Cap For Inhalation IH SCH (09:00)
[2016-07-21] MEDS ORDERED: diltiaZEM 180 mg/24 Hours CD Cap PO SCH (09:00)
[2016-07-21 11:46] VITALS: PULSE 73
--- NOTE | 2016-07-21 12:01 | RAD ---
HISTORY: Atrial fibrillation COMPARISON: 07/11/2016. FINDINGS: LUNGS: No active pulmonary disease. PLEURA: No significant pleural effusion identified, no pneumothorax apparent. CARDIOVASCULAR: No radiographic findings to suggest acute or significant cardiovascular disease. OSSEOUS STRUCTURES: No significant abnormalities. VISUALIZED UPPER ABDOMEN: Normal. OTHER FINDINGS: None. IMPRESSION: No active disease. No significant interval change compared to the prior examination(s).
--- NOTE | 2016-07-21 15:22 | CARD ---
APPROVED REPORT EKG Measurement Heart [id number] <Conclusion> Atrial fibrillation Abnormal ECG
--- NOTE | 2016-07-21 15:37 | CARD ---
APPROVED REPORT EKG Measurement Heart [id number] <Conclusion> Atrial fibrillation with rapid ventricular rate Abnormal ECG
--- NOTE | 2016-07-21 22:27 | CP.PCM.DIS ---
Provider - Provider Date of Admission: 07/20/16 21:33 Attending physician: Carolina Ramirez MD Time Spent in preparation of Discharge (in minutes): 30 Hospital Course - Lab Results Lab Results: Most Recent Lab Values WBC 6.2 K/uL (4.8-10.8) 07/21/16 05:00 RBC 4.59 Mil/uL (4.40-5.90) 07/21/16 05:00 Hgb 13.5 g/dL (12.0-18.0) 07/21/16 05:00 Hct 42.4 % (35.0-51.0) 07/21/16 05:00 MCV 92.4 fl (80.0-94.0) D 07/21/16 05:00 MCH 29.3 pg (27.0-31.0) 07/21/16 05:00 MCHC 31.7 g/dL (33.0-37.0) L 07/21/16 05:00 RDW 15.7 % (11.5-14.5) H 07/21/16 05:00 Plt Count 162 K/uL (130-400) 07/21/16 05:00 MPV 10.2 fl (7.2-11.7) 07/20/16 20:16 Neut % (Auto) 62.9 % (50.0-75.0) 07/20/16 20:16 Lymph % (Auto) 21.9 % (20.0-40.0) 07/20/16 20:16 [place] % (Auto) 10.4 % (0.0-10.0) H 07/20/16 20:16 Eos % (Auto) 4.1 % (0.0-4.0) H 07/20/16 20:16 Baso % (Auto) 0.7 % (0.0-2.0) 07/20/16 20:16 Neut # 4.0 K/uL (1.8-7.0) 07/20/16 20:16 Lymph # 1.4 K/uL (1.0-4.3) 07/20/16 20:16 [place] # 0.7 K/uL (0.0-0.8) 07/20/16 20:16 Eos # 0.3 K/uL (0.0-0.7) 07/20/16 20:16 Baso # 0.0 K/uL (0.0-0.2) 07/20/16 20:16 PT 13.5 Seconds (9.8-13.1) H 07/20/16 20:16 INR 1.2 (0.9-1.2) 07/20/16 20:16 APTT 31.2 Seconds (25.6-37.1) 07/20/16 20:16 Sodium 144 mmol/l (132-148) 07/21/16 05:00 Potassium 4.3 MMOL/L (3.6-5.0) 07/21/16 05:00 Chloride 108 mmol/L (98-107) H 07/21/16 05:00 Carbon Dioxide 28 mmol/L (22-30) 07/21/16 05:00 Anion Gap 12 (10-20) 07/21/16 05:00 BUN 15 mg/dl (9-20) 07/21/16 05:00 Creatinine 1.5 mg/dL (0.8-1.5) 07/21/16 05:00 Est GFR ( Amer) 57 07/21/16 05:00 Est GFR (Non-Af Amer) 47 07/21/16 05:00 Random Glucose 73 mg/dL (75-110) L 07/21/16 05:00 Calcium 10.5 mg/dL (8.4-10.2) H 07/21/16 05:00 Phosphorus 2.2 mg/dl (2.5-4.5) L 07/20/16 20:16 Magnesium 2.4 MG/DL (1.6-2.3) H 07/20/16 20:16 Total Bilirubin 0.4 mg/dl (0.2-1.3) 07/20/16 20:16 AST 21 U/L (17-59) 07/20/16 20:16 ALT 31 U/L (21-72) 07/20/16 20:16 Alkaline Phosphatase 102 U/L (38-126) 07/20/16 20:16 Troponin I < 0.0120 ng/mL (0.00-0.120) 07/21/16 11:59 NT-Pro-B Natriuret Pep 424 pg/ml (0-900) 07/20/16 20:16 Total Protein 6.9 G/DL (6.3-8.2) 07/20/16 20:16 Albumin 3.8 g/dL (3.5-5.0) 07/20/16 20:16 Globulin 3.1 gm/dL (2.2-3.9) 07/20/16 20:16 Albumin/Globulin Ratio 1.2 (1.0-2.1) 07/20/16 20:16 TSH 3rd Generation 1.51 mIU/ML (0.46-4.68) 07/20/16 20:16 Digoxin < 0.4 ng/mL (0.8-2.0) L 07/20/16 20:16 Urine Opiates Screen Negative (NEGATIVE) 07/21/16 02:50 Urine Methadone Screen Negative (NEGATIVE) 07/21/16 02:50 Ur Barbiturates Screen Negative (NEGATIVE) 07/21/16 02:50 Ur Phencyclidine Scrn Negative (NEGATIVE) 07/21/16 02:50 Ur Amphetamines Screen Negative (NEGATIVE) 07/21/16 02:50 U Benzodiazepines Scrn Negative (NEGATIVE) 07/21/16 02:50 U Oth Cocaine Metabols Positive (NEGATIVE) H 07/21/16 02:50 U Cannabinoids Screen Negative (NEGATIVE) 07/21/16 02:50 - Hospital Course Hospital Course: 65M presenting with acute onset of palpitations with associated SOB without chest pain, admitted for observation. EKg: atrial fibrillation, Troponins negative x 2. iven Cardizem IV and started on Cardizem drip. Patient denied chest pain upon evaluation this AM. Patient coughing at time of visit, reportedly using inhalers as directed. Patient is asymptomatic aside from dry cough. Requesting to leave. Discussed importance of seeking treatment for possible drug rehabiliation. Patient states amenable. Given number to [facility]. Resume home medications. Albuterol (Ventolin Hfa 90 Mcg/Actuation (8 G)) 2 puff IH RQ6 EARL Apixaban (Eliquis) 5 mg PO BID EARL Atorvastatin Calcium (Lipitor) 40 mg PO HS EARL Colchicine (Colocrys) 0.6 mg PO DAILY EARL Diltiazem HCl (Cardizem Cd) 180 mg PO DAILY EARL Furosemide (Lasix) 20 mg PO DAILY EARL Gabapentin (Neurontin) 300 mg PO BID EARL Losartan Potassium (Cozaar) 100 mg PO DAILY EARL Tiotropium [place] (Spiriva) 18 mcg IH DAILY EARL No prescriptions upon discharge. Discharge Exam - Head Exam Head Exam: ATRAUMATIC, NORMAL INSPECTION - Eye Exam Eye Exam: Normal appearance - ENT Exam ENT Exam: Mucous Membranes Moist - Respiratory Exam Respiratory Exam: Wheezes (mild wheezing, good air entry, no respirtory distress , ), NORMAL BREATHING PATTERN - Cardiovascular Exam Cardiovascular Exam: +S1, +S2 Additional comments: irregular rhytym, no tachycardia - GI/Abdominal Exam GI & Abdominal Exam: Unremarkable - Neurological Exam Neurological exam: Alert, CN II-XII Intact, Oriented x3 - Psychiatric Exam Psychiatric exam: Normal Affect, Normal Mood - Skin Skin Exam: Dry, Intact, Normal Color - Additional Findings Additional findings: lying in bed resting comfortably in no distress Discharge Plan - Follow Up Plan Condition: GOOD Disposition: HOME/ ROUTINE Instructions: Cocaine Abuse (DC) Additional Instructions: discharge ordered at 0914 but not cleared until later. Pt discharged at 1215.
== END 2016-07-21 13:47 | disposition home or self-care (01) ==
LOC: H.ER 19:27 → H.ERHOLD 21:33 → H.TEL 22:45
PROVIDERS: ADMIT Family Medicine Geriatric Medicine; ATTEND Family Medicine Geriatric Medicine
DX: I48.91 Unspecified atrial fibrillation (principal); F14.10 Cocaine abuse, uncomplicated; I11.0 Hypertensive heart disease with heart failure; I50.22 Chronic systolic (congestive) heart failure; I25.10 Atherosclerotic heart disease of native coronary artery without angina pectoris; J44.9 Chronic obstructive pulmonary disease, unspecified; M1A.9XX0 Chronic gout, unspecified, without tophus (tophi); E88.81 Metabolic syndrome and other insulin resistance; E27.8 Other specified disorders of adrenal gland; E21.0 Primary hyperparathyroidism; E78.00 Pure hypercholesterolemia, unspecified; F17.200 Nicotine dependence, unspecified, uncomplicated; Z79.01 Long term (current) use of anticoagulants; Z88.0 Allergy status to penicillin; Z86.73 Personal history of transient ischemic attack (TIA), and cerebral infarction without residual deficits; Z59.0 Homelessness

== ENCOUNTER 2016-07-30 17:30 | Emergency (ER) | payer MEDICAID ==
[2016-07-30 17:31] VITALS: PULSE 97; BMI 37.1
[2016-07-30 17:45] VITALS: TEMP 98.5; O2SAT 99
--- NOTE | 2016-07-30 17:48 | ED PDOC ---
HPI: General Adult Time Seen by Provider: 07/30/16 17:47 Chief Complaint (Nursing): Abnormal Skin Integrity Chief Complaint (Provider): lump on buttocks History Per: Patient Additional Complaint(s): 65-year-old male presents to emergency department with painful abscess to right buttocks that he first noticed earlier today. Patient states he scratched the area and a scab came off. He noticed small amount of bleeding and pus. Patient denies fever or chills. He did not take any medication for pain relief. Pain is an 8 out of 10. Past Medical History Reviewed: Historical Data, Nursing Documentation, Vital Signs Vital Signs: Last Vital Signs Temp 98.5 F 07/30/16 17:43 Pulse 84 07/30/16 17:43 Resp 19 07/30/16 17:43 BP 157/92 H 07/30/16 17:43 Pulse Ox 99 07/30/16 17:47 - Medical History PMH: Asthma, Atrial Fibrillation, CAD, CHF, COPD, CVA, HTN, Hypercholesterolemia , Hyperthyroidism - Family History Family History: States: [place], Diabetes, Hypertension (mother) - Living Arrangements Living Arrangements: With Family - Social History Current smoker - smoking cessation education provided: No Alcohol: None Drugs: Denies - Home Medications Home Medications: Ambulatory Orders Medication Instructions Recorded Losartan [Cozaar] 100 mg PO DAILY #0 tab 04/10/16 diltiaZEM CD [Cardizem CD] 180 mg PO DAILY #0 cap 04/10/16 Atorvastatin [Lipitor] 40 mg PO HS 05/03/16 Albuterol HFA [Ventolin HFA 90 2 puff IH [id number] #1 inhaler 06/02/16 mcg/actuation (8 g)] Apixaban [Eliquis] 5 mg PO BID #60 06/02/16 Colchicine [Colcrys] 0.6 mg PO DAILY #30 06/02/16 Gabapentin [Neurontin] 300 mg PO BID #60 06/02/16 Tiotropium [Spiriva] 18 mcg IH DAILY #30 cap 06/02/16 Furosemide [Lasix] 20 mg PO DAILY #30 udc 07/01/16 Clindamycin [Cleocin] 300 mg PO TID #21 cap 07/30/16 Ibuprofen [Motrin] 600 mg PO Q6 PRN #15 tab 07/30/16 - Allergies Allergies/Adverse Reactions: Allergies Allergy/AdvReac Type Severity Reaction Status Date / Time Penicillins Allergy RASH Verified 07/30/16 17:43 Review of Systems ROS Statement: Except As Marked, All Systems Reviewed And Found Negative Constitutional: Negative for: Fever Skin: Positive for: Other (abscess to right buttocks) Physical Exam - Reviewed Nursing Documentation Reviewed: Yes Vital Signs Reviewed: Yes - Physical Exam Appears: Positive for: Well, Non-toxic, No Acute Distress Skin: Positive for: Normal Color Back: Positive for: Other (Superficial 3 cm actively draining abscess noted to her right buttocks, not involving rectal or anal region, no active bleeding or drainage noted, localized surrounding erythema and warmth consistent with cellulitis, minimal tenderness to palpation, no erythematous streaking) Extremity: Positive for: Normal ROM Neurologic/Psych: Positive for: Alert, Oriented - ECG O2 Sat by Pulse Oximetry: 99 Pulse Ox Interpretation: Normal Medical Decision Making Medical Decision Making: Patient: Abscess with localized cellulitis. Initial dose clindamycin given in ED along with dose of Motrin. Prescriptions given for clindamycin and Motrin. Patient was instructed to apply warm compresses to affected area with Epsom salts as often as possible. Advised wound recheck in 2-3 days. Disposition - Clinical Impression Clinical Impression: Abscess, Cellulitis - Patient ED Disposition Is Patient to be Admitted: No Counseled Patient/Family Regarding: Diagnosis, Need For Followup, Rx Given - Disposition Referrals: [facility] [Outside] Disposition: Routine/Home Disposition Time: 19:05 Condition: STABLE Additional Instructions: Take prescription meds as directed. Apply warm compresses with Epsom salts to affected area as often as possible. Follow-up with clinic in 2-3 days. Prescriptions: Clindamycin [Cleocin] 300 mg PO TID #21 cap Ibuprofen [Motrin] 600 mg PO Q6 PRN #15 tab PRN Reason: Pain, Moderate (4-7) Instructions: Abscess (ED), Cellulitis (ED) Print Language: AMHARIC
[2016-07-30 19:27] VITALS: BP 157/92; PULSE 84; RESP 19
== END 2016-07-30 19:18 | disposition home or self-care (01) ==
LOC: H.ER 17:30
DX: L02.31 Cutaneous abscess of buttock (principal); L03.317 Cellulitis of buttock; I48.91 Unspecified atrial fibrillation; E78.00 Pure hypercholesterolemia, unspecified; I10 Essential (primary) hypertension

== ENCOUNTER 2016-12-25 08:05 | Emergency (ER) | payer MEDICAID ==
[2016-12-25 08:05] VITALS: PULSE 80
[2016-12-25 08:10] VITALS: BMI 35.5
[2016-12-25 08:14] VITALS: BP 157/87; PULSE 90; TEMP 96
[2016-12-25] MEDS ORDERED: Albuterol-Ipratrop 3 mg / 0.5 (3 ml) UD INH STA ×2 (08:28→10:10)
--- NOTE | 2016-12-25 08:29 | ED PDOC ---
HPI: SOB/CHF/COPD Time Seen by Provider: 12/25/16 08:23 Chief Complaint (Nursing): Shortness Of Breath Chief Complaint (Provider): Shortness Of Breath History Per: Patient History/Exam Limitations: no limitations Onset/Duration Of Symptoms: Hrs Current Symptoms Are (Timing): Still Present Additional Complaint(s): Ignacio Soni is a 66 year old male with a history of asthma and currently smokes that presents to the ED with a chief complaint of shortness of breath that began this morning. Patient reports associated cough with yellow sputum production but denies any chest pain. Past Medical History Reviewed: Historical Data, Nursing Documentation, Vital Signs Vital Signs: Last Vital Signs Temp 96.0 F L 12/25/16 08:11 Pulse 90 12/25/16 08:11 Resp 20 12/25/16 08:45 BP 157/87 H 12/25/16 08:11 Pulse Ox 99 12/25/16 09:32 - Medical History PMH: Asthma, Atrial Fibrillation, Bronchitis, CAD, Cardia Arrhythmia, CHF, COPD , CVA, Deep Vein Thrombosis, Gastritis, HTN, Hypercholesterolemia, Hyperlipidemia, Hyperthyroidism, Peripheral Edema Denies: Diabetes, HIV, Chronic Kidney Disease - Family History Family History: States: [place], Diabetes, Hypertension (mother) - Social History Current smoker - smoking cessation education provided: Yes - Immunization History Hx Tetanus Toxoid Vaccination: No Hx Influenza Vaccination: No Hx Pneumococcal Vaccination: No - Home Medications Home Medications: Ambulatory Orders Medication Instructions Recorded Gabapentin [Neurontin] 300 mg PO BID #30 cap 11/16/16 Aspirin [Aspirin Chewable] 81 mg PO DAILY #30 chew 12/06/16 Colchicine [Mitigare] 0.6 mg PO DAILY #30 capsule 12/06/16 Albuterol 0.083% [Albuterol 0.083% 2.5 mg IH Q4 PRN #20 neb 12/20/16 Inhal Marlee (2.5 mg/3 ml) UD] Apixaban [Eliquis] 5 mg PO BID #60 tablet 12/20/16 Atorvastatin [Lipitor] 40 mg PO HS #30 tab 12/20/16 Furosemide [Lasix] 20 mg PO WM #30 tab 12/20/16 Losartan Potassium [Cozaar] 100 mg PO DAILY #30 tablet 12/20/16 Metoprolol Tartrate [Lopressor] 50 mg PO Q12 30 Days #30 tab 12/20/16 Tiotropium [Spiriva] 18 mcg IH DAILY #30 cap 12/20/16 diltiaZEM CD [Cardizem CD] 240 mg PO DAILY #30 cap 12/20/16 levoFLOXacin [Levaquin] 750 mg PO DAILY 2 Days #2 tab 12/20/16 Albuterol HFA [Ventolin HFA 90 2 puff IH [id number] PRN #1 bottle 12/25/16 mcg/actuation (8 g)] Prednisone 50 mg PO DAILY #4 tab 12/25/16 - Allergies Allergies/Adverse Reactions: Allergies Allergy/AdvReac Type Severity Reaction Status Date / Time Penicillins Allergy RASH Verified 11/11/16 17:56 Review of Systems Respiratory: Positive for: Cough (w/ yellow sputum), Shortness of Breath Physical Exam - Reviewed Nursing Documentation Reviewed: Yes Vital Signs Reviewed: Yes - Physical Exam Appears: Positive for: Non-toxic, No Acute Distress Head Exam: Positive for: ATRAUMATIC, NORMOCEPHALIC Skin: Positive for: Normal Color, Warm Eye Exam: Positive for: Normal appearance, EOMI, PERRL Cardiovascular/Chest: Positive for: Regular Rate, Rhythm. Negative for: Murmur Respiratory: Positive for: Wheezing (b/l), Respiratory Distress (mild), Other ( Patient is able to speak in full sentences). Negative for: Normal Breath Sounds Gastrointestinal/Abdominal: Positive for: Normal Exam, Soft. Negative for: Tenderness Back: Positive for: Normal Inspection. Negative for: L CVA Tenderness, R CVA Tenderness Extremity: Positive for: Normal ROM. Negative for: Deformity, Swelling Neurologic/Psych: Positive for: Alert, Oriented. Negative for: Motor/Sensory Deficits - Laboratory Results Result Diagrams: 12/25/16 08:13 12/25/16 08:13 - ECG O2 Sat by Pulse Oximetry: 99 (RA) Pulse Ox Interpretation: Normal Medical Decision Making Medical Decision Making: Impression: Shortness of breath Plan: * Chest X-Ray * EKG * CMP * CBC * PTT * PT * Blood Culture * Duoneb 3 mL INH * Solumedrol 125 g IV * Peak Flow Pre/Post Tx * Reevaluation 8:37 EKG shows A-Fib at 105 bpm. Chest X-Ray FINDINGS: LUNGS: No active pulmonary disease. Limited patchy density in the right infrahilar medial basilar space appears to have resolved. PLEURA: No significant pleural effusion identified, no pneumothorax apparent. CARDIOVASCULAR: Normal. OSSEOUS STRUCTURES: No significant abnormalities. VISUALIZED UPPER ABDOMEN: Normal. OTHER FINDINGS: None. IMPRESSION: No acute cardiopulmonary disease appreciated. 12:00 Patient's wheezing resolved and he reports feeling better. Patient given Rx for Albuterol and Prednisone, stable for discharge home. Clinical Impression: Asthma Exacerbation Scribe Attestation: Documented by Ana Mendez, acting as a scribe for Jeanne Ram MD. Provider Scribe Attestation: All medical record entries made by the Scribe were at my direction and personally dictated by me. I have reviewed the chart and agree that the record accurately reflects my personal performance of the history, physical exam, medical decision making, and the department course for this patient. I have also personally directed, reviewed, and agree with the discharge instructions and disposition. Disposition - Clinical Impression Clinical Impression: Asthma exacerbation - Disposition Disposition: Routine/Home Disposition Time: 12:00 Condition: IMPROVED Prescriptions: Albuterol HFA [Ventolin HFA 90 mcg/actuation (8 g)] 2 puff IH [id number] PRN #1 bottle PRN Reason: Shortness Of Breath Prednisone 50 mg PO DAILY #4 tab Forms: [employer] (Vietnamese)
[2016-12-25 08:46] VITALS: RESP 20
[2016-12-25 08:51] LABS: BASO % 0.6 % (0.0-2.0); EOS # 0.2 K/uL (0.0-0.7); EOS % 2.9 % (0.0-4.0); HEMATOCRIT 45.2 % (35.0-51.0); LYMPH # 1.8 K/uL (1.0-4.3); LYMPH % 21.2 % (20.0-40.0); MEAN CELL VOLUME 88.6 fl (80.0-94.0); MEAN CORPUSCULAR HEMOGLOBIN 28.7 pg (27.0-31.0); MEAN CORPUSCULAR HGB CONC 32.3 g/dL (33.0-37.0); MONO # 0.8 K/uL (0.0-0.8); MONO % 9.2 % (0.0-10.0); NEUT # 5.6 K/uL (1.8-7.0); NEUT % 66.1 % (50.0-75.0); NRBC % 0.1 % (0.0-0.0); RED CELL DISTRIBUTION WIDTH 17.4 % (11.5-14.5); WHITE BLOOD COUNT 8.5 K/uL (4.8-10.8)
--- NOTE | 2016-12-25 08:53 | RAD ---
HISTORY: SOB COMPARISON: Chest radiographs 12/17/2016 FINDINGS: LUNGS: No active pulmonary disease. Limited patchy density in the right infrahilar medial basilar space appears to have resolved. PLEURA: No significant pleural effusion identified, no pneumothorax apparent. CARDIOVASCULAR: Normal. OSSEOUS STRUCTURES: No significant abnormalities. VISUALIZED UPPER ABDOMEN: Normal. OTHER FINDINGS: None. IMPRESSION: No acute cardiopulmonary disease appreciated.
[2016-12-25 08:58] LABS: PARTIAL THROMBOPLASTIN TIME 29.3 Seconds (25.6-37.1)
[2016-12-25 09:02] LABS: ALB/GLOB RATIO 1.3 (1.0-2.1); ALKALINE PHOSPHATASE 101 U/L (38-126); ALT/SGPT 49 U/L (21-72); AST/SGOT 26 U/L (17-59); BILIRUBIN,TOTAL 0.8 mg/dl (0.2-1.3); BLOOD UREA NITROGEN 25 mg/dl (9-20); CALCIUM 10.3 mg/dL (8.4-10.2); CARBON DIOXIDE 29 mmol/L (22-30); CHLORIDE 108 mmol/L (98-107); GFR AFRICAN-AMERICAN > 60; GLUCOSE,RANDOM 84 mg/dL (75-110); POTASSIUM 4.1 MMOL/L (3.6-5.0); SODIUM 146 mmol/l (132-148); TOTAL PROTEIN 6.7 G/DL (6.3-8.2)
[2016-12-25 09:32] VITALS: O2SAT 99
--- NOTE | 2016-12-27 12:36 | CARD ---
APPROVED REPORT EKG Measurement Heart [id number] <Conclusion> Atrial fibrillation with rapid ventricular response Abnormal ECG
== END 2016-12-25 12:27 | disposition home or self-care (01) ==
LOC: H.ER 08:05
DX: J45.901 Unspecified asthma with (acute) exacerbation (principal); E05.90 Thyrotoxicosis, unspecified without thyrotoxic crisis or storm; E78.00 Pure hypercholesterolemia, unspecified; I11.0 Hypertensive heart disease with heart failure; I25.10 Atherosclerotic heart disease of native coronary artery without angina pectoris; I48.91 Unspecified atrial fibrillation; J44.9 Chronic obstructive pulmonary disease, unspecified; Z79.01 Long term (current) use of anticoagulants; Z79.82 Long term (current) use of aspirin; Z86.73 Personal history of transient ischemic attack (TIA), and cerebral infarction without residual deficits; Z88.0 Allergy status to penicillin
CPT/HCPCS: 71010; 80053; 85025; 85610; 85730; 87040; 93005; 94640; 96374; 99283; J2930

== ENCOUNTER 2016-12-30 07:07 | Inpatient (IN) | payer MEDICAID ==
[2016-12-30 07:07] VITALS: PULSE 80
[2016-12-30] MEDS ORDERED: diltiaZEM 100 mg Vial ( ADD-VANTAGE ) IV ONE (07:46)
--- NOTE | 2016-12-30 07:51 | ED PDOC ---
HPI: Hypertension/Hypotension Time Seen by Provider: 12/30/16 07:16 Chief Complaint (Nursing): Shortness Of Breath Chief Complaint (Provider): Palpatation and Shortness of Breath History Per: Patient History/Exam Limitations: no limitations Onset/Duration Of Symptoms: Hrs Current Symptoms Are (Timing): Still Present Quality Of Symptoms: Rapid Heart Rate Exacerbating Factor(s): Pos: None Additional Complaint(s): Ignacio Soni, a 66 year old male, with a past medical history of atrial fibrillation, chronic obstructive pulmonary disease and congestive heart failure is brought into the ED by EMS complaining of palpitation and shortness of breath which began last night. Denies cough and fever. Past Medical History Reviewed: Historical Data, Nursing Documentation Vital Signs: Last Vital Signs Temp 98 F 12/30/16 07:35 Pulse 116 H 12/30/16 07:35 Resp 24 12/30/16 07:35 BP 169/111 H 12/30/16 07:35 Pulse Ox 100 12/30/16 07:35 - Medical History PMH: Asthma, Atrial Fibrillation, Bronchitis, CAD, Cardia Arrhythmia, CHF, COPD , CVA, Deep Vein Thrombosis, Gastritis, HTN, Hypercholesterolemia, Hyperlipidemia, Hyperthyroidism, Peripheral Edema Denies: Diabetes, HIV, Chronic Kidney Disease - Family History Family History: States: [place], Diabetes, Hypertension (mother) - Social History Current smoker - smoking cessation education provided: Yes (Light Smoker < 10 Cigarettes Daily) Ex-Smoker (has not smoked in the last 12 months): Yes Alcohol: None Drugs: Denies - Immunization History Hx Tetanus Toxoid Vaccination: No Hx Influenza Vaccination: No Hx Pneumococcal Vaccination: No - Home Medications Home Medications: Ambulatory Orders Medication Instructions Recorded Gabapentin [Neurontin] 300 mg PO BID #30 cap 11/16/16 Aspirin [Aspirin Chewable] 81 mg PO DAILY #30 chew 12/06/16 Colchicine [Mitigare] 0.6 mg PO DAILY #30 capsule 12/06/16 Albuterol 0.083% [Albuterol 0.083% 2.5 mg IH Q4 PRN #20 neb 12/20/16 Inhal Marlee (2.5 mg/3 ml) UD] Apixaban [Eliquis] 5 mg PO BID #60 tablet 12/20/16 Atorvastatin [Lipitor] 40 mg PO HS #30 tab 12/20/16 Furosemide [Lasix] 20 mg PO WM #30 tab 12/20/16 Losartan Potassium [Cozaar] 100 mg PO DAILY #30 tablet 12/20/16 Metoprolol Tartrate [Lopressor] 50 mg PO Q12 30 Days #30 tab 12/20/16 Tiotropium [Spiriva] 18 mcg IH DAILY #30 cap 12/20/16 diltiaZEM CD [Cardizem CD] 240 mg PO DAILY #30 cap 12/20/16 levoFLOXacin [Levaquin] 750 mg PO DAILY 2 Days #2 tab 12/20/16 Albuterol HFA [Ventolin HFA 90 2 puff IH [id number] PRN #1 bottle 12/25/16 mcg/actuation (8 g)] Prednisone 50 mg PO DAILY #4 tab 12/25/16 - Allergies Allergies/Adverse Reactions: Allergies Allergy/AdvReac Type Severity Reaction Status Date / Time Penicillins Allergy RASH Verified 11/11/16 17:56 Review of Systems ROS Statement: Except As Marked, All Systems Reviewed And Found Negative Constitutional: Negative for: Fever Cardiovascular: Positive for: Palpitations Respiratory: Positive for: Shortness of Breath. Negative for: Cough Physical Exam - Reviewed Nursing Documentation Reviewed: Yes Vital Signs Reviewed: Yes - Physical Exam Appears: Positive for: Non-toxic, No Acute Distress Head Exam: Positive for: ATRAUMATIC, NORMAL INSPECTION, NORMOCEPHALIC Skin: Positive for: Normal Color, Warm, Dry. Negative for: Rash Eye Exam: Positive for: Normal appearance, EOMI, PERRL. Negative for: Nystagmus ENT: Positive for: Normal ENT Inspection Neck: Positive for: Normal, Painless ROM, Supple Cardiovascular/Chest: Positive for: Chest Non Tender, Tachycardia (120 bpm). Negative for: Regular Rate, Rhythm (irregularly irregular) Respiratory: Positive for: Rales (1/3 up b/l), Respiratory Distress (mild respiratory distress). Negative for: Normal Breath Sounds, Rhonchi, Wheezing Gastrointestinal/Abdominal: Positive for: Normal Exam, Bowel Sounds, Soft. Negative for: Tenderness, Mass, Guarding, Rebound Back: Positive for: Normal Inspection. Negative for: L CVA Tenderness, R CVA Tenderness Extremity: Positive for: Normal ROM, Swelling (b/l lower extremity swelling ). Negative for: Tenderness, Deformity Lymphatic: Positive for: Normal Exam. Negative for: Adenopathy Neurologic/Psych: Positive for: Alert (AAO x3), Oriented, Gait - Laboratory Results Result Diagrams: 12/30/16 07:35 12/30/16 07:35 - ECG O2 Sat by Pulse Oximetry: 100 (RA) Pulse Ox Interpretation: Normal Medical Decision Making Medical Decision Makin Initial Impression 66 y/o male presenting with palpitations and shortness of breath Initial Plan: * EKG * CMP * Troponin * Udip * CBC * CXR * NS 100mL Cardizem 100mg IV 5mg/hr * Cardizem 25mg IVP * Lasix 40mg IVP * Reevaluation EKG performed: * atrial fibrillation with rapid ventricular response between 120-130 * No acute ST changes - Scribe Attestation Documented by Ashtyn Dennis acting as a scribe for Davidson Sanon MD. Provider Attestation All medical record entries made by the Scribe were at my direction and personally dictated by me. I have reviewed the chart and agree that the record accurately reflects my personal performance of the history, physical exam, medical decision making, and the department course for this patient. I have also personally directed, reviewed, and agree with the discharge instructions and disposition. Disposition - Clinical Impression Clinical Impression: CHF exacerbation, Atrial fibrillation with RVR - Patient ED Disposition Is Patient to be Admitted: Yes - Disposition Disposition Time: 08:33 Condition: FAIR Forms: [email or web address] (Maltese) - Pt Status Changed To: Hospital Disposition Of: Inpatient - Admit Certification Admit to Inpatient:: After my assessment, the patient will require hospitalization for at least two midnights. This is because of the severity of symptoms shown, intensity of services needed, and/or the medical risk in this patient being treated as an outpatient. - POA Present On Arrival: None
[2016-12-30 08:11] LABS: BASO % 0.3 % (0.0-2.0); EOS # 0.1 K/uL (0.0-0.7); LYMPH # 2.3 K/uL (1.0-4.3); LYMPH % 16.7 % (20.0-40.0); MEAN CELL VOLUME 90.7 fl (80.0-94.0); MEAN CORPUSCULAR HEMOGLOBIN 28.4 pg (27.0-31.0); MEAN CORPUSCULAR HGB CONC 31.3 g/dL (33.0-37.0); MEAN PLATELET VOLUME 11.5 fl (7.2-11.7); MONO # 1.2 K/uL (0.0-0.8); MONO % 8.6 % (0.0-10.0); NEUT # 10.1 K/uL (1.8-7.0); NEUT % 73.4 % (50.0-75.0); NRBC % 0.1 % (0.0-0.0); RED CELL DISTRIBUTION WIDTH 18.7 % (11.5-14.5); WHITE BLOOD COUNT 13.8 K/uL (4.8-10.8)
[2016-12-30 08:32] LABS: ALB/GLOB RATIO 1.4 (1.0-2.1); ALKALINE PHOSPHATASE 103 U/L (38-126); ALT/SGPT 55 U/L (21-72); AST/SGOT 43 U/L (17-59); BILIRUBIN,TOTAL 0.7 mg/dl (0.2-1.3); BLOOD UREA NITROGEN 25 mg/dl (9-20); CALCIUM 11.5 mg/dL (8.4-10.2); CARBON DIOXIDE 27 mmol/L (22-30); CHLORIDE 109 mmol/L (98-107); GFR AFRICAN-AMERICAN > 60; GLUCOSE,RANDOM 59 mg/dL (75-110); POTASSIUM 4.3 MMOL/L (3.6-5.0); SODIUM 147 mmol/l (132-148); TOTAL PROTEIN 7.7 G/DL (6.3-8.2)
--- NOTE | 2016-12-30 08:47 | RAD ---
HISTORY: cough COMPARISON: 12/25/2016 FINDINGS: LUNGS: No active pulmonary disease. PLEURA: No significant pleural effusion identified, no pneumothorax apparent. CARDIOVASCULAR: Unchanged. OSSEOUS STRUCTURES: No significant abnormalities. VISUALIZED UPPER ABDOMEN: Normal. OTHER FINDINGS: None. IMPRESSION: No active disease.
[2016-12-30] MEDS ORDERED: Albuterol HFA 90 mcg/actuation (8 g) IH PRN (10:03)
--- NOTE | 2016-12-30 11:40 | CP.PCM.HP ---
History of Present Illness - History of Present Illness History of Present Illness: 66 yo homeless male with PMH of CHF (ECHO on 05/11/16: EF 45%), Atrial fibrillation, HTN, Hyperparathyroidism, CVA, COPD, dyslipidemia, gout and cocaine abuse who presents to [facility] ED by EMS w/ complaints of shortness of breath and chest palpitation since this morning associated with yellowish productive cough of one month duration. Pt reports he did not have dyspnea last night. Reports to take all his medications last night. Pt was admitted to [facility] on 12/17/16 for COPD exacerbation and atrial fibrillation w/ RVR which was stabilized with 10 mg diltiazem in ED. Denies dizziness, orthopnea or PND. Denies any chest pain, abdominal pain, calf pain, nausea, vomiting, headaches, rash, fevers, chills or complaints. PMD: Dr Solis at [facility], last visit 12/28/16. Past medical hx: CHF, Afib, HTN, CVA, COPD, Hyperlipidemia, hyperparathyroidism , cocaine abuse, left adrenal mass. Medications: checked in [facility] as of 12/28/16. Aspirin 81 mg PO QD Ventolin 90 mcg/actuation Colchicine 0.6mg PO QD Eliquis 5mg PO BID Lexapro 10mg PO QD Neurontin 300mg PO BID Furosemide 20mg PO QD Atorvastatin 40mg PO HS Losartan 100mg PO QD Diltiazem ER 240mg PO QD AirDuo 232/14 mcg/act, 1 puff, BID Allergies: Penicillin: Rash Family hx: Mother: DMII. Father: alcoholism. Past Surgery hx: B/L bunionectomy in 1994 Social History: homeless, lives in a [address] [place] Smoked 2 PPD x 40 yrs, recently cutdown to 1-2 cigarettes. Drinks 1-2 beer/day . Denies recent recreational drug use( last inhaled cocaine about 2 months ago). ED course: Vitals: Temp 98 F, BP 169/111, HR 116, RR 24, pulse ox 100%. EKG: Atrial Fibrillation w/ rapid ventricular response (rate 117, no acute ST changes) CXR: no acute infiltrate. CBC w/ diff: 13.8>14.4/46<142 CMP: BUN/Cr 25/1.3, Ca 11.5 Troponin I: negative Diltiazem 25 mg IVP Diltiazem : 5 mg/hr IV drip( 100mg/100ml) Admit: Admit to telemetry Present on Admission - Present on Admission Any Indicators Present on Admission: Yes Review of Systems - Constitutional Constitutional: absent: Chills, Fever, Night Sweats - EENT Eyes: absent: Blurred Vision - Cardiovascular Cardiovascular: Dyspnea, Pedal Edema, Rapid Heart Rate. absent: Chest Pain, Paroxysmal Nocturnal Dyspnea - Respiratory Respiratory: Cough, Dyspnea. absent: Wheezing - Gastrointestinal Gastrointestinal: absent: Constipation, Hematemesis, Hematochezia, Nausea, Vomiting - Genitourinary Genitourinary: absent: Dysuria - Musculoskeletal Musculoskeletal: absent: Numbness, Tingling - Integumentary Integumentary: absent: Rash - Neurological Neurological: absent: Dizziness, Focal Weakness, Syncope - Hematologic/Lymphatic Hematologic: absent: Easy Bruising Past Patient History - Infectious Disease Hx of Infectious Diseases: None - Tetanus Immunizations Tetanus Immunization: Unknown - Past Medical History & Family History Past Medical History?: Yes - Past Social History Smoking Status: Light Smoker < 10 Cigarettes Daily - CARDIAC Hx Cardiac Disorders: Yes - PULMONARY Hx Respiratory Disorders: Yes - NEUROLOGICAL Hx Neurological Disorder: Yes - HEENT Hx HEENT Problems: No - RENAL Hx Chronic Kidney Disease: No - ENDOCRINE/METABOLIC Hx Endocrine Disorders: Yes - HEMATOLOGICAL/ONCOLOGICAL Hx Human Immunodeficiency Virus (HIV): No - INTEGUMENTARY Hx Dermatological Problems: Yes - MUSCULOSKELETAL/RHEUMATOLOGICAL Hx Falls: No - GASTROINTESTINAL Hx Gastritis: Yes - GENITOURINARY/GYNECOLOGICAL Hx Genitourinary Disorders: No - PSYCHIATRIC Hx Substance Use: Yes (cocaine use) - SURGICAL HISTORY Hx Surgeries: Yes Hx Orthopedic Surgery: Yes Other/Comment: Hx BILATERAL BUNIONECTOMY 1996 - ANESTHESIA Hx Anesthesia: Yes Hx Anesthesia Reactions: No Hx Malignant Hyperthermia: No Meds Allergies/Adverse Reactions: Allergies Allergy/AdvReac Type Severity Reaction Status Date / Time Penicillins Allergy RASH Verified 11/11/16 17:56 Physical Exam - Constitutional Appears: No Acute Distress Additional comments: Obese, on NC O2 - Head Exam Head Exam: ATRAUMATIC, NORMAL INSPECTION, NORMOCEPHALIC - Eye Exam Eye Exam: EOMI, PERRL. absent: Scleral icterus - ENT Exam ENT Exam: Mucous Membranes Moist, Normal Oropharynx - Neck Exam Neck exam: Positive for: Full Rom, Normal Inspection. Negative for: Lymphadenopathy - Respiratory Exam Respiratory Exam: Decreased Breath Sounds (in lower lung field, ). absent: Accessory Muscle Use, Rales, Rhonchi, Wheezes, Respiratory Distress - Cardiovascular Exam Cardiovascular Exam: Tachycardia, Irregular Rhythm, +S1, +S2. absent: JVD - GI/Abdominal Exam GI & Abdominal Exam: Normal Bowel Sounds, Soft. absent: Rebound, Tenderness Additional comments: Obese - Extremities Exam Extremities exam: Positive for: pedal edema (2+), pedal pulses present. Negative for: calf tenderness, tenderness - Neurological Exam Neurological exam: Alert, CN II-XII Intact, Oriented x3 - Psychiatric Exam Psychiatric exam: Normal Affect, Normal Mood - Skin Skin Exam: Dry, Intact Results - Vital Signs Recent Vital Signs: Last Vital Signs Temp 97.4 F L 12/30/16 09:57 Pulse 78 12/30/16 09:57 Resp 17 12/30/16 09:57 BP 141/93 H 12/30/16 09:57 Pulse Ox 99 12/30/16 09:57 - Labs Result Diagrams: 12/30/16 07:35 12/30/16 07:35 Labs: Laboratory Results - last 24 hr 12/30/16 12/30/16 07:35 07:35 WBC 13.8 H D RBC 5.07 Hgb 14.4 Hct 46.0 MCV 90.7 D MCH 28.4 MCHC 31.3 L RDW 18.7 H Plt Count 142 MPV 11.5 Neut % (Auto) 73.4 Lymph % (Auto) 16.7 L Churchill % (Auto) 8.6 Eos % (Auto) 1.0 Baso % (Auto) 0.3 Neut # 10.1 H Lymph # 2.3 Churchill # 1.2 H Eos # 0.1 Baso # 0.0 Sodium 147 Potassium 4.3 Chloride 109 H Carbon Dioxide 27 Anion Gap 15 BUN 25 H Creatinine 1.3 Est GFR ( Amer) > 60 Est GFR (Non-Af Amer) 56 Random Glucose 59 L Calcium 11.5 H Total Bilirubin 0.7 AST 43 ALT 55 Alkaline Phosphatase 103 Troponin I 0.0270 Total Protein 7.7 Albumin 4.4 Globulin 3.3 Albumin/Globulin Ratio 1.4 Assessment & Plan - Assessment and Plan (Free Text) Assessment: 66 yo male with PMH of CHF (ECHO on 05/11/16: EF 45%), Atrial fibrillation, HTN, Hyperparathyroidism, CVA, COPD, dyslipidemia, and cocaine abuse admitted for atrial fibrillation with RVR and shortness of breath. Atrial fibrillation with RVR -Has h/o chronic atrial fibrillation. -HR 117 on admission. -Received diltiazem 25 mg IV once in ED -ED initiated diltiazem 5mg/hr drip. HR dropped to 59. stopped the drip for now. -C/w diltiazem 240mg PO daily -Eliquis 5mg PO BID -Continuos cardiac monitoring on telemetry. -[id number] score 4. Shortness of breath -Multifactorial -CHF: -40 mg IV lasix given in ED. -c/w 20 mg lasix PO QD -ProBNP: 1160 -COPD: -2L NC 02 prn -Continue albuterol q6h prn. -PFT's as outpatient -Start advair diskus 250 mcg/50mcg, 1 puff, BID. -CXR: no acute infiltrate. -WBC: 13.8 -Afebrile -Repeat CBC in AM. Hypertension -controlled -c/w home medications -Losartan 100mg PO daily Hypercalcemia: -Chronic, Stable -Hx hyperparathyroidism. -Calcium 11.5 -BUN/Cr:25/1.3 -CMP in AM DVT prophylaxis -Patient is on anticoagulation with Eliquis. Diet: -Heart Healthy Diet Code Status: full code
--- NOTE | 2016-12-30 12:17 | CARD ---
APPROVED REPORT EKG Measurement Heart [id number] <Conclusion> Atrial fibrillation with rapid ventricular response Abnormal ECG
[2016-12-30 12:55] LABS: ALCOHOL SERUM < 10 mg/dl (0-10)
[2016-12-30] MEDS ORDERED: Albuterol 0.083% Inhal Sol (2.5 mg/3 mL) UD INH PRN (13:22)
[2016-12-30 15:39] LABS: PARTIAL THROMBOPLASTIN TIME 28.4 Seconds (25.6-37.1)
[2016-12-30] MEDS: Fluticasone-Salmeterol 250-50mcg Diskus IH SCH (22:34)
[2016-12-30 23:54] VITALS: RESP 18
[2016-12-31 05:56] LABS: BASO % 0.5 % (0.0-2.0); EOS # 0.2 K/uL (0.0-0.7); EOS % 2.2 % (0.0-4.0); HEMATOCRIT 43.7 % (35.0-51.0); LYMPH # 2.5 K/uL (1.0-4.3); LYMPH % 23.7 % (20.0-40.0); MEAN CELL VOLUME 89.8 fl (80.0-94.0); MEAN CORPUSCULAR HGB CONC 32.3 g/dL (33.0-37.0); MEAN PLATELET VOLUME 10.8 fl (7.2-11.7); MONO # 0.8 K/uL (0.0-0.8); NEUT # 6.8 K/uL (1.8-7.0); NEUT % 65.6 % (50.0-75.0); WHITE BLOOD COUNT 10.4 K/uL (4.8-10.8)
[2016-12-31 06:15] LABS: ALB/GLOB RATIO 1.2 (1.0-2.1); ALKALINE PHOSPHATASE 84 U/L (38-126); ALT/SGPT 55 U/L (21-72); AST/SGOT 25 U/L (17-59); BLOOD UREA NITROGEN 24 mg/dl (9-20); CALCIUM 10.4 mg/dL (8.4-10.2); CARBON DIOXIDE 33 mmol/L (22-30); CHLORIDE 106 mmol/L (98-107); GFR AFRICAN-AMERICAN > 60; GLUCOSE,RANDOM 81 mg/dL (75-110); POTASSIUM 4.8 MMOL/L (3.6-5.0); SODIUM 143 mmol/l (132-148); TOTAL PROTEIN 6.3 G/DL (6.3-8.2)
--- NOTE | 2016-12-31 08:08 | CP.PCM.PN ---
Subjective - Date & Time of Evaluation Date of Evaluation: 12/31/16 Time of Evaluation: 07:40 - Subjective Subjective: Pt seen and examined at bedside this morning. Pt was lying in supine position and looks comfortable. Pt reports mild SOB and minimal cough but improved since yesterday. Slept well and tolerating po intake well. Denies chest pain, palpitation, headache, dizziness, abdominal pain, nausea, vomiting or complaints. Objective - Vital Signs/Intake and Output Vital Signs (last 24 hours): Temp Pulse Resp BP Pulse Ox 97.7 F 81 18 127/84 99 12/31/16 08:05 12/31/16 08:05 12/31/16 08:05 12/31/16 08:05 12/31/16 08:05 Intake and Output: 12/31/16 12/31/16 06:59 18:59 Intake Total 240 Balance 240 - Medications Medications: Current Medications Albuterol (Ventolin Hfa 90 Mcg/Actuation (8 G)) 2 puff IH RQ6 PRN PRN Reason: Shortness of Breath Albuterol Sulfate (Albuterol 0.083% Inhal Marlee (2.5 Mg/3 Ml) Ud) 2.5 mg INH RQ4 PRN PRN Reason: Shortness of Breath Apixaban (Eliquis) 5 mg PO BID EARL PRN Reason: Protocol Aspirin (Aspirin Chewable) 81 mg PO DAILY [facility] Atorvastatin Calcium (Lipitor) 40 mg PO HS [facility] Last Admin: 12/30/16 22:34 Dose: 40 mg Diltiazem HCl (Cardizem Cd) 240 mg PO DAILY [facility] Losartan Potassium (Cozaar) 100 mg PO DAILY [facility] Fluticasone/Salmeterol (Advair Diskus 250/50) 1 puff IH Q12 [facility] Last Admin: 12/30/16 22:34 Dose: 1 puff - Labs Labs: 12/31/16 05:40 12/31/16 05:40 PT 13.9 Seconds (9.8-13.1) H 12/30/16 15:00 INR 1.2 (0.9-1.2) 12/30/16 15:00 APTT 28.4 Seconds (25.6-37.1) 12/30/16 15:00 - Constitutional Appears: Non-toxic, No Acute Distress, Other (obese) - ENT Exam ENT Exam: Mucous Membranes Moist - Neck Exam Neck Exam: Full ROM, Normal Inspection - Respiratory Exam Respiratory Exam: Wheezes. absent: Rales, Rhonchi, Respiratory Distress Additional comments: Mild wheezing and crackles in B/L lower lung field - Cardiovascular Exam Cardiovascular Exam: Irregular Rhythm, +S1, +S2 - GI/Abdominal Exam GI & Abdominal Exam: Soft, Normal Bowel Sounds. absent: Tenderness, Rebound - Extremities Exam Extremities Exam: Normal Capillary Refill, Pedal Edema (1+). absent: Calf Tenderness - Neurological Exam Neurological Exam: Alert, Awake, Oriented x3 - Psychiatric Exam Psychiatric exam: Normal Affect, Normal Mood - Skin Skin Exam: Dry. absent: Rash Assessment and Plan - Assessment and Plan (Free Text) Plan: 66 yo male with PMH of CHF (ECHO on 05/11/16: EF 45%), Atrial fibrillation, HTN, Hyperparathyroidism, CVA, COPD, dyslipidemia, and cocaine abuse admitted for atrial fibrillation with RVR and shortness of breath. Atrial fibrillation with RVR -Has h/o chronic atrial fibrillation. -Stable -C/w diltiazem 240mg PO daily -Received diltiazem 60 mg PO at 9 pm last night. -Eliquis 5mg PO BID -Continuos cardiac monitoring on telemetry. -[id number] score 4. Shortness of breath -Multifactorial -CHF: -40 mg IV lasix given in ED. -c/w 20 mg lasix PO QD -ProBNP: 1160 -COPD: -2L NC 02 prn -Continue albuterol q6h prn. -PFT's as outpatient -Start advair diskus 250 mcg/50mcg, 1 puff, BID. -CXR: no acute infiltrate. -WBC: 10.4 today. -Afebrile Hypertension -controlled -c/w home medications -Losartan 100mg PO daily Hypercalcemia: -Chronic, Stable -Hx hyperparathyroidism. -Calcium 11.5 -BUN/Cr:25/1.3 -CMP in AM DVT prophylaxis -Patient is on anticoagulation with Eliquis. Diet: -Heart Healthy Diet Code Status: full code Disposition: Possible discharge today.
[2016-12-31] MEDS: Fluticasone-Salmeterol 250-50mcg Diskus IH SCH (08:15)
[2016-12-31] MEDS ORDERED: diltiaZEM 240 mg/24 Hours CD Cap PO SCH (09:00)
[2016-12-31] MEDS ORDERED: Albuterol-Ipratrop 3 mg / 0.5 (3 ml) UD INH STA (09:22)
--- NOTE | 2016-12-31 10:37 | CP.PCM.DIS ---
Provider - Provider Date of Admission: 12/30/16 08:32 Attending physician: Carolina Ramirez MD Primary care physician: Maricruz Solis MD Time Spent in preparation of Discharge (in minutes): 30 Diagnosis - Discharge Diagnosis (1) Atrial fibrillation with RVR Status: Chronic (2) Dyspnea Status: Resolved Hospital Course - Lab Results Lab Results: Most Recent Lab Values WBC 10.4 K/uL (4.8-10.8) 12/31/16 05:40 RBC 4.87 Mil/uL (4.40-5.90) 12/31/16 05:40 Hgb 14.1 g/dL (12.0-18.0) 12/31/16 05:40 Hct 43.7 % (35.0-51.0) 12/31/16 05:40 MCV 89.8 fl (80.0-94.0) 12/31/16 05:40 MCH 29.0 pg (27.0-31.0) 12/31/16 05:40 MCHC 32.3 g/dL (33.0-37.0) L 12/31/16 05:40 RDW 18.0 % (11.5-14.5) H 12/31/16 05:40 Plt Count 118 K/uL (130-400) L D 12/31/16 05:40 MPV 10.8 fl (7.2-11.7) 12/31/16 05:40 Neut % (Auto) 65.6 % (50.0-75.0) 12/31/16 05:40 Lymph % (Auto) 23.7 % (20.0-40.0) 12/31/16 05:40 Trigg % (Auto) 8.0 % (0.0-10.0) 12/31/16 05:40 Eos % (Auto) 2.2 % (0.0-4.0) 12/31/16 05:40 Baso % (Auto) 0.5 % (0.0-2.0) 12/31/16 05:40 Neut # 6.8 K/uL (1.8-7.0) 12/31/16 05:40 Lymph # 2.5 K/uL (1.0-4.3) 12/31/16 05:40 Trigg # 0.8 K/uL (0.0-0.8) 12/31/16 05:40 Eos # 0.2 K/uL (0.0-0.7) 12/31/16 05:40 Baso # 0.0 K/uL (0.0-0.2) 12/31/16 05:40 PT 13.9 Seconds (9.8-13.1) H 12/30/16 15:00 INR 1.2 (0.9-1.2) 12/30/16 15:00 APTT 28.4 Seconds (25.6-37.1) 12/30/16 15:00 Sodium 143 mmol/l (132-148) 12/31/16 05:40 Potassium 4.8 MMOL/L (3.6-5.0) 12/31/16 05:40 Chloride 106 mmol/L (98-107) 12/31/16 05:40 Carbon Dioxide 33 mmol/L (22-30) H 12/31/16 05:40 Anion Gap 9 (10-20) L 12/31/16 05:40 BUN 24 mg/dl (9-20) H 12/31/16 05:40 Creatinine 1.4 mg/dl (0.8-1.5) 12/31/16 05:40 Est GFR ( Amer) > 60 12/31/16 05:40 Est GFR (Non-Af Amer) 51 12/31/16 05:40 Random Glucose 81 mg/dL (75-110) 12/31/16 05:40 Calcium 10.4 mg/dL (8.4-10.2) H 12/31/16 05:40 Total Bilirubin 1.0 mg/dl (0.2-1.3) 12/31/16 05:40 AST 25 U/L (17-59) 12/31/16 05:40 ALT 55 U/L (21-72) 12/31/16 05:40 Alkaline Phosphatase 84 U/L (38-126) 12/31/16 05:40 Troponin I 0.0160 ng/mL (0.00-0.120) 12/30/16 15:00 NT-Pro-B Natriuret Pep 1160 pg/ml (0-900) H 12/30/16 12:15 Total Protein 6.3 G/DL (6.3-8.2) 12/31/16 05:40 Albumin 3.4 g/dL (3.5-5.0) L D 12/31/16 05:40 Globulin 2.9 gm/dL (2.2-3.9) 12/31/16 05:40 Albumin/Globulin Ratio 1.2 (1.0-2.1) 12/31/16 05:40 Alcohol, Quantitative < 10 mg/dl (0-10) 12/30/16 12:15 - Hospital Course Hospital Course: 66 yo male with PMH of CHF (ECHO on 05/11/16: EF 45%), Atrial fibrillation, HTN, Hyperparathyroidism, CVA, COPD, dyslipidemia, and cocaine abuse admitted on for atrial fibrillation with RVR and shortness of breath. On ED, pt's received diltiazem 25 mg IV once and lasix 40 mg IV once. CXR shows no active disease and troponin x 2 neg. Diltiazem 5mg/hr drip started in ED but stopped when pt's HR dropped to 59. Pt was medically stabilized and discharged home. Pt' s UA was positive for cocaine. Pt has appointment at [facility] with Dr. Jackson on 01/05 at 10:20 am. Pt's discharge medications as follows( no medications were changed in this admission). Aspirin 81 mg PO QD Ventolin 90 mcg/actuation Colchicine 0.6mg PO QD Eliquis 5mg PO BID Lexapro 10mg PO QD Neurontin 300mg PO BID Furosemide 20mg PO QD Atorvastatin 40mg PO HS Losartan 100mg PO QD Diltiazem ER 240mg PO QD AirDuo 232/14 mcg/act, 1 puff, BID Discharge Exam - Head Exam Head Exam: ATRAUMATIC, NORMAL INSPECTION, NORMOCEPHALIC - ENT Exam ENT Exam: Mucous Membranes Moist - Neck Exam Neck exam: Full Rom, Normal Inspection - Respiratory Exam Respiratory Exam: Clear to PA & Lateral, NORMAL BREATHING PATTERN. absent: Rales, Rhonchi, Wheezes, Respiratory Distress - Cardiovascular Exam Cardiovascular Exam: Irregular Rhythm, REGULAR RHYTHM, +S1, +S2 - GI/Abdominal Exam GI & Abdominal Exam: Normal Bowel Sounds, Soft. absent: Tenderness - Extremities Exam Extremities exam: normal inspection, pedal pulses present - Neurological Exam Neurological exam: Alert, Oriented x3 - Psychiatric Exam Psychiatric exam: Normal Affect, Normal Mood - Skin Skin Exam: Dry Discharge Plan - Follow Up Plan Condition: FAIR Disposition: HOME/ ROUTINE Instructions: Heart Failure (DC), Heart Failure (GEN), Atrial Fibrillation (DC) , Atrial Fibrillation (GEN) Additional Instructions: Has appointment at [facility] with Dr. Jackson on 01/05/17 at 10:20 am.
[2016-12-31 12:26] VITALS: BP 138/83; PULSE 53; TEMP 97.2; O2SAT 98
--- NOTE | 2016-12-31 13:09 | CP.PCM.PCO ---
Physician Communication Note - Physician Communication Note Physician Communication Note: DSRIP. Post discharge f/u appt with Dr Jackson, 01/05/17, 10:20am at [facility]
--- NOTE | 2016-12-31 13:25 | PQF GENQUE ---
This form is a permanent part of the medical record 12/31/16 Dr. Adelfo Martinez, Please specify the type and acuity of heart failure in your progress notes: Admitted with c/o sob and palpitations. + rales, mild respiratory distress . Noted to be in rapid Atrial Fibrillation. CXR: no active disease. PROBNP:1160. Treated with Cardizem drip and IV Lasix in the ER. Clarification of your documentation is requested to better reflect the severity of illness and intensity of treatment of your patient. Indicators present [] Specify: [] [] Specify: [] [] Specify: [] [] Specify: [] Location in the medical record that reflects the above clinical findings: [] Treatment Provided: [] PHYSICIAN'S RESPONSE Please specify the type and acuity of heart failure in your progress notes: 1. TYPE: [] Combined systolic and diastolic [] Diastolic [] Systolic [] Other (please specify) [] Clinically unable to determine [] Unknown 2. ACUITY: [] Acute [] Chronic [] Acute on chronic [] Other (please specify) [] Clinically unable to determine [] Unknown Based on your medical judgment of the clinical indicators outlined above please clarify the following: [] Practitioner response [] If unable to determine, please check the box, sign and date. Present On Admission (POA) Indicator: [] Present at the time of admission [] Not present at the time of admission [] Clinically Undetermined In responding to this query, please exercise your independent professional judgment. The fact that a question is asked does not imply that any particular answer is desired or expected. Thank you for your clarification on this documentation. If you have any questions please call:ext [phone] * Thank you, Steffanie Preston RN CDMP MTDD
== END 2016-12-31 13:59 | disposition home or self-care (01) | DRG 138 ==
LOC: H.ER 07:07 → H.ERHOLD 08:32 → H.TEL 10:38
PROVIDERS: ADMIT Family Medicine Geriatric Medicine; ATTEND Family Medicine Geriatric Medicine
DX: I48.2 Chronic atrial fibrillation (principal); J44.9 Chronic obstructive pulmonary disease, unspecified; I11.0 Hypertensive heart disease with heart failure; I50.9 Heart failure, unspecified; F14.10 Cocaine abuse, uncomplicated; I25.10 Atherosclerotic heart disease of native coronary artery without angina pectoris; Z86.73 Personal history of transient ischemic attack (TIA), and cerebral infarction without residual deficits; Z79.01 Long term (current) use of anticoagulants; Z88.0 Allergy status to penicillin; J45.909 Unspecified asthma, uncomplicated; K29.70 Gastritis, unspecified, without bleeding; E78.00 Pure hypercholesterolemia, unspecified; E78.5 Hyperlipidemia, unspecified; E83.52 Hypercalcemia; Z59.0 Homelessness; M10.9 Gout, unspecified; F17.210 Nicotine dependence, cigarettes, uncomplicated

== ENCOUNTER 2017-01-09 07:36 | Observation (INO) | payer MEDICAID ==
[2017-01-09 07:36] VITALS: PULSE 80
--- NOTE | 2017-01-09 07:59 | ED PDOC ---
HPI: Hypertension/Hypotension Time Seen by Provider: 01/09/17 07:43 Chief Complaint (Provider): Palpitations, Shortness of breath History Per: Patient History/Exam Limitations: no limitations Onset/Duration Of Symptoms: Days (x2) Current Symptoms Are (Timing): Still Present Exacerbating Factor(s): Pos: Recent Cocaine Use Additional Complaint(s): Ignacio Soni is a 66 year old male with a past medical history of atrial fibrillation, congestive heart failure, and cocaine abuse, who presents to the ED complaining of palpitations and shortness of breath since last night. Admits to alcohol and cocaine use. Also complaining of chest discomfort. No cough or fever. Patient has had multiple visits for similar complaints, and was admitted on 12/30/16 for the same. PMD: Provider TBD Past Medical History Reviewed: Historical Data, Nursing Documentation, Vital Signs - Medical History PMH: Asthma, Atrial Fibrillation, Bronchitis, CAD, Cardia Arrhythmia, CHF, COPD , CVA, Deep Vein Thrombosis, Gastritis, HTN, Hypercholesterolemia, Hyperlipidemia, Hyperthyroidism, Peripheral Edema Denies: Diabetes, HIV, Chronic Kidney Disease Other PMH: Cocaine abuse - Family History Family History: States: [place], Diabetes, Hypertension (mother) - Social History Alcohol: < 2 Drinks/Day Drugs: Cocaine - Immunization History Hx Tetanus Toxoid Vaccination: No Hx Influenza Vaccination: No Hx Pneumococcal Vaccination: No - Home Medications Home Medications: Ambulatory Orders Medication Instructions Recorded Gabapentin [Neurontin] 300 mg PO BID #30 cap 11/16/16 Aspirin [Aspirin Chewable] 81 mg PO DAILY #30 chew 12/06/16 Colchicine [Mitigare] 0.6 mg PO DAILY #30 capsule 12/06/16 Apixaban [Eliquis] 5 mg PO BID #60 tablet 12/20/16 Atorvastatin [Lipitor] 40 mg PO HS #30 tab 12/20/16 Furosemide [Lasix] 20 mg PO WM #30 tab 12/20/16 Losartan Potassium [Cozaar] 100 mg PO DAILY #30 tablet 12/20/16 diltiaZEM CD [Cardizem CD] 240 mg PO DAILY #30 cap 12/20/16 Albuterol HFA [Ventolin HFA 90 2 puff IH [id number] PRN #1 bottle 12/25/16 mcg/actuation (8 g)] Albuterol HFA [Ventolin HFA 90 2 puff IH RQ6 PRN inhaler 12/31/16 mcg/actuation (8 g)] - Allergies Allergies/Adverse Reactions: Allergies Allergy/AdvReac Type Severity Reaction Status Date / Time Penicillins Allergy RASH Verified 11/11/16 17:56 Review of Systems ROS Statement: Except As Marked, All Systems Reviewed And Found Negative Constitutional: Negative for: Fever Cardiovascular: Positive for: Palpitations, Other (Chest discomfort) Respiratory: Positive for: Shortness of Breath. Negative for: Cough Physical Exam - Reviewed Nursing Documentation Reviewed: Yes Vital Signs Reviewed: Yes - Physical Exam Appears: Positive for: Non-toxic, No Acute Distress Head Exam: Positive for: ATRAUMATIC, NORMAL INSPECTION, NORMOCEPHALIC Skin: Positive for: Normal Color, Warm, Dry Eye Exam: Positive for: EOMI, Normal appearance, PERRL Neck: Positive for: Normal, Painless ROM, Supple Cardiovascular/Chest: Positive for: Tachycardia, Irregularly Irregular Respiratory: Positive for: Rales (at the bases b/l). Negative for: Wheezing, Respiratory Distress Gastrointestinal/Abdominal: Positive for: Normal Exam, Soft. Negative for: Tenderness Extremity: Positive for: Normal ROM, Pedal Edema (1+ swelling to lower extremities). Negative for: Calf Tenderness, Deformity Neurologic/Psych: Positive for: Alert, Oriented (x3) - Laboratory Results Result Diagrams: 01/09/17 08:00 - ECG ECG Rhythm: Positive for: Atrial Fibrillation (with rapid ventricular response) . Negative for: ST/T Changes Medical Decision Making Medical Decision Making: Time: 7:51 Initial Plan: --EKG --Alcohol serum --Urine drug screen --Troponin I --CMP --CBC w/ differential --Urine dipstick --Chest x-ray --Cardizem 25 mg IVP --IV fluids with Cardizem 125 mg at 5 mg/hr EKG: Atrial fibrillation with rapid ventricular response, rate 140-150, no ST/T changes Patient will be hospitalized as observation for atrial fibrillation with RVR, and CHF, under the service of Dr. Ramirez. Scribe Attestation: Documented by Akosua Gutierrez, acting as a scribe for Davidson Sanon MD Provider Scribe Attestation: All medical record entries made by the Scribe were at my direction and personally dictated by me. I have reviewed the chart and agree that the record accurately reflects my personal performance of the history, physical exam, medical decision making, and the department course for this patient. I have also personally directed, reviewed, and agree with the discharge instructions and disposition. Disposition - Clinical Impression Clinical Impression: Atrial fibrillation, rapid, Atrial fibrillation with RVR - Patient ED Disposition Is Patient to be Admitted: Yes - Disposition Disposition Time: 08:24 Condition: FAIR - Pt Status Changed To: Hospital Disposition Of: Observation - POA Present On Arrival: None
[2017-01-09 08:18] LABS: BASO % 0.5 % (0.0-2.0); EOS # 0.3 K/uL (0.0-0.7); EOS % 3.1 % (0.0-4.0); HEMATOCRIT 42.6 % (35.0-51.0); LYMPH # 1.4 K/uL (1.0-4.3); LYMPH % 15.6 % (20.0-40.0); MEAN CELL VOLUME 88.6 fl (80.0-94.0); MEAN CORPUSCULAR HEMOGLOBIN 29.1 pg (27.0-31.0); MEAN CORPUSCULAR HGB CONC 32.8 g/dL (33.0-37.0); MONO # 0.7 K/uL (0.0-0.8); MONO % 7.4 % (0.0-10.0); NEUT # 6.7 K/uL (1.8-7.0); NEUT % 73.4 % (50.0-75.0); RED CELL DISTRIBUTION WIDTH 17.5 % (11.5-14.5); WHITE BLOOD COUNT 9.1 K/uL (4.8-10.8)
[2017-01-09 08:42] LABS: ALB/GLOB RATIO 1.2 (1.0-2.1); ALCOHOL SERUM < 10 mg/dl (0-10); ALKALINE PHOSPHATASE 111 U/L (38-126); ALT/SGPT 39 U/L (21-72); AST/SGOT 37 U/L (17-59); BILIRUBIN,TOTAL 1.7 mg/dl (0.2-1.3); BLOOD UREA NITROGEN 14 mg/dl (9-20); CALCIUM 10.2 mg/dL (8.4-10.2); CARBON DIOXIDE 24 mmol/L (22-30); CHLORIDE 109 mmol/L (98-107); GFR AFRICAN-AMERICAN > 60; GLUCOSE,RANDOM 93 mg/dL (75-110); POTASSIUM 5.1 MMOL/L (3.6-5.0); SODIUM 143 mmol/l (132-148); TOTAL PROTEIN 7.2 G/DL (6.3-8.2)
--- NOTE | 2017-01-09 11:58 | CP.PCM.PN ---
Subjective - Date & Time of Evaluation Date of Evaluation: 01/09/17 Time of Evaluation: 09:00 - Subjective Subjective: Pt is a 66 y/o male with PMHx of Afibb on Eliquis active cocaine abuser presenting to the ED with severe chest pain x 1 day. States he used cocaine and consumed alcohol prior. Pt denies any SOB, palpitations, syncopy, or trauma. PMHx: HTN Chronic Afibb Systolic CHF COPD Hyperthyroidism Left Cerebellar Infarct Cocaine Abuse Gout Meds: ASA 81 mg Colchine 0.6mg Gabapentin 300mg Eliquis 5mg Lexapro 10mg Losartan 100mg Furosemide 20mg Atorvastatin Ventoline Spiriva Diltiazem 240mg Allergies: NKDA Hospitalizations: Multiple for CP/SOB- COPD exacerbation and/or cocaine use Family Hx: Unknown Social: Lives in homeless intermediate in [place],also attends second home, h/o of cocaine use. ED Course: --EKG: Atrial fibrillation with rapid ventricular response, rate 140-150, no ST/ T changes --Troponin I --CMP --CBC w/ differential --Urine dipstick --Chest x-ray --Cardizem 25 mg IVP --IV fluids with Cardizem 125 mg at 5 mg/hr EKG: Atrial fibrillation with rapid ventricular response, rate 140-150, no ST/T changes Objective - Vital Signs/Intake and Output Vital Signs (last 24 hours): Temp Pulse Resp BP Pulse Ox 97.5 F L 100 H 18 149/84 96 01/09/17 11:25 01/09/17 11:25 01/09/17 11:25 01/09/17 11:25 01/09/17 11:25 - Medications Medications: Current Medications Aspirin (Ecotrin) 81 mg PO DAILY [facility] Atorvastatin Calcium (Lipitor) 40 mg PO DAILY [facility] Colchicine (Colocrys) 0.6 mg PO DAILY [facility] Escitalopram Oxalate (Lexapro) 10 mg PO DAILY [facility] Gabapentin (Neurontin) 300 mg PO BID [facility] Diltiazem HCl 100 mg/ Sodium (Chloride) 100 mls @ 5 mls/hr IV .Q20H ONE; 5 MG/ HR PRN Reason: Protocol Stop: 01/10/17 04:14 Last Admin: 01/09/17 08:13 Dose: 5 mg/hr, 5 mls/hr Losartan Potassium (Cozaar) 100 mg PO DAILY [facility] Tiotropium Warren (Spiriva) 18 mcg INH DAILY [facility] - Labs Labs: 01/09/17 08:00 01/09/17 08:00 Assessment and Plan - Assessment and Plan (Free Text) Assessment: 66 yo homeless male with PMH of CHF (ECHO on 05/11/16: EF 45%), Atrial fibrillation, HTN, Hyperparathyroidism, CVA, COPD, dyslipidemia, gout and cocaine abuse who presents to [facility] ED by EMS w/ complaints of shortness of breath and chest palpitation in the setting of recent cocaine. #Yuki - EKG: Afibb with RVR, no ST/T Ischemic changes -Likely secondary to cocaine use in the setting of Chron -Troponin x 1 negative -Cxray unremarkable #COPD -Currently asymptomatic -Ventolin prn
--- NOTE | 2017-01-09 13:39 | RAD ---
HISTORY: cough COMPARISON: Comparison chest dated 12/30/2016. FINDINGS: LUNGS: Minor bibasilar atelectasis. PLEURA: No significant pleural effusion identified, no pneumothorax apparent. CARDIOVASCULAR: Heart remains borderline/ mildly enlarged. Aorta is ectatic and uncoiled. OSSEOUS STRUCTURES: No significant abnormalities. VISUALIZED UPPER ABDOMEN: Normal. OTHER FINDINGS: None. IMPRESSION: Mild bibasilar atelectasis.
[2017-01-09 16:33] LABS: PARTIAL THROMBOPLASTIN TIME 30.8 Seconds (25.6-37.1)
[2017-01-09] MEDS ORDERED: Albuterol HFA 90 mcg/actuation (8 g) INH PRN (17:06)
[2017-01-09] MEDS ORDERED: Albuterol-Ipratrop 3 mg / 0.5 (3 ml) UD INH PRN (17:44)
--- NOTE | 2017-01-09 17:56 | CP.PCM.HP ---
History of Present Illness - History of Present Illness History of Present Illness: Subjective: Pt is a 66 y/o male with PMHx of Afibb on Eliquis active cocaine abuser presenting to the ED with severe chest pain x 1 day. States he used cocaine and consumed alcohol prior. Pt denies any SOB, palpitations, syncopy, or trauma. PMHx: HTN Chronic Afibb Systolic CHF COPD Hyperthyroidism Left Cerebellar Infarct Cocaine Abuse Gout Meds: ASA 81 mg Colchine 0.6mg Gabapentin 300mg Eliquis 5mg Lexapro 10mg Losartan 100mg Furosemide 20mg Atorvastatin [place] Spiriva Diltiazem 240mg Allergies: NKDA Hospitalizations: Multiple for CP/SOB- COPD exacerbation and/or cocaine use Family Hx: Unknown Social: Lives in homeless snf in [place],also attends [facility], h/o of cocaine use. ED Course: --EKG: Atrial fibrillation with rapid ventricular response, rate 140-150, no ST/ T changes --Troponin I --CMP --CBC w/ differential --Urine dipstick --Chest x-ray --Cardizem 25 mg IVP --IV fluids with Cardizem 125 mg at 5 mg/hr EKG: Atrial fibrillation with rapid ventricular response, rate 140-150, no ST/T changes Present on Admission - Present on Admission Any Indicators Present on Admission: No History of DVT/PE: No History of Uncontrolled Diabetes: No Urinary Catheter: No Decubitus Ulcer Present: No History Surgical Site Infection Following: None Review of Systems - Constitutional Constitutional: absent: Chills, Fever - Cardiovascular Cardiovascular: Chest Pain, Dyspnea, Palpitations, Rapid Heart Rate. absent: Leg Edema, Lightheadedness, Orthopnea - Respiratory Respiratory: absent: Cough, Hemoptysis, Wheezing - Gastrointestinal Gastrointestinal: absent: Abdominal Pain, Diarrhea, Vomiting Past Patient History - Infectious Disease Hx of Infectious Diseases: None - Tetanus Immunizations Tetanus Immunization: Unknown - Past Medical History & Family History Past Medical History?: Yes - Past Social History Smoking Status: Heavy Smoker > 10 Cigarettes Daily - CARDIAC Hx Atrial Fibrillation: Yes Hx Cardia Arrhythmia: Yes Hx Congestive Heart Failure: Yes Hx Hypercholesterolemia: Yes Hx Hypertension: Yes Hx Peripheral Edema: Yes - PULMONARY Hx Asthma: Yes Hx Bronchitis: Yes Hx Chronic Obstructive Pulmonary Disease (COPD): Yes - NEUROLOGICAL Hx Neurological Disorder: Yes - HEENT Hx HEENT Problems: No - RENAL Hx Chronic Kidney Disease: No - ENDOCRINE/METABOLIC Hx Hyperthyroidism: Yes - HEMATOLOGICAL/ONCOLOGICAL Hx Human Immunodeficiency Virus (HIV): No - INTEGUMENTARY Hx Dermatological Problems: Yes - MUSCULOSKELETAL/RHEUMATOLOGICAL Hx Falls: No - GASTROINTESTINAL Hx Gastritis: Yes - GENITOURINARY/GYNECOLOGICAL Hx Genitourinary Disorders: No - PSYCHIATRIC Hx Substance Use: Yes (coccaine) - SURGICAL HISTORY Hx Surgeries: Yes Hx Orthopedic Surgery: Yes Other/Comment: Hx BILATERAL BUNIONECTOMY 1996 - ANESTHESIA Hx Anesthesia: Yes Hx Anesthesia Reactions: No Hx Malignant Hyperthermia: No Meds Allergies/Adverse Reactions: Allergies Allergy/AdvReac Type Severity Reaction Status Date / Time Penicillins Allergy RASH Verified 11/11/16 17:56 Physical Exam - Constitutional Appears: Well, Non-toxic, No Acute Distress - ENT Exam ENT Exam: Mucous Membranes Moist - Respiratory Exam Respiratory Exam: Clear to Auscultation Bilateral, Wheezes. absent: Accessory Muscle Use, Respiratory Distress - Cardiovascular Exam Cardiovascular Exam: REGULAR RHYTHM, +S1, +S2. absent: Systolic Murmur - GI/Abdominal Exam GI & Abdominal Exam: Normal Bowel Sounds, Soft. absent: Distended, Tenderness - Neurological Exam Neurological exam: Alert, Oriented x3 - Psychiatric Exam Psychiatric exam: Normal Affect Results - Vital Signs Recent Vital Signs: Last Vital Signs Temp 97.9 F 01/09/17 15:48 Pulse 86 01/09/17 15:48 Resp 20 01/09/17 15:48 BP 144/91 H 01/09/17 15:48 Pulse Ox 98 01/09/17 15:48 - Labs Result Diagrams: 01/09/17 08:00 01/09/17 08:00 Labs: Laboratory Results - last 24 hr 01/09/17 01/09/17 01/09/17 08:00 08:00 12:20 WBC 9.1 RBC 4.81 Hgb 14.0 Hct 42.6 MCV 88.6 MCH 29.1 MCHC 32.8 L RDW 17.5 H Plt Count 151 MPV 11.0 Neut % (Auto) 73.4 Lymph % (Auto) 15.6 L Will % (Auto) 7.4 Eos % (Auto) 3.1 Baso % (Auto) 0.5 Neut # 6.7 Lymph # 1.4 Will # 0.7 Eos # 0.3 Baso # 0.0 PT INR APTT Sodium 143 Potassium 5.1 H Chloride 109 H Carbon Dioxide 24 Anion Gap 15 BUN 14 Creatinine 1.4 Est GFR ( Amer) > 60 Est GFR (Non-Af Amer) 51 Random Glucose 93 Calcium 10.2 Total Bilirubin 1.7 H AST 37 ALT 39 Alkaline Phosphatase 111 Troponin I 0.0250 Total Protein 7.2 Albumin 4.0 Globulin 3.2 Albumin/Globulin Ratio 1.2 Urine Opiates Screen Negative Urine Methadone Screen Negative Ur Barbiturates Screen Negative Ur Phencyclidine Scrn Negative Ur Amphetamines Screen Negative U Benzodiazepines Scrn Negative U Oth Cocaine Metabols Positive H U Cannabinoids Screen Negative Alcohol, Quantitative < 10 01/09/17 01/09/17 16:00 16:00 WBC RBC Hgb Hct MCV MCH MCHC RDW Plt Count MPV Neut % (Auto) Lymph % (Auto) Will % (Auto) Eos % (Auto) Baso % (Auto) Neut # Lymph # Will # Eos # Baso # PT 12.5 INR 1.1 APTT 30.8 Sodium Potassium Chloride Carbon Dioxide Anion Gap BUN Creatinine Est GFR ( Amer) Est GFR (Non-Af Amer) Random Glucose Calcium Total Bilirubin AST ALT Alkaline Phosphatase Troponin I 0.0200 Total Protein Albumin Globulin Albumin/Globulin Ratio Urine Opiates Screen Urine Methadone Screen Ur Barbiturates Screen Ur Phencyclidine Scrn Ur Amphetamines Screen U Benzodiazepines Scrn U Oth Cocaine Metabols U Cannabinoids Screen Alcohol, Quantitative Assessment & Plan - Assessment and Plan (Free Text) Assessment: Assessment: 66 yo homeless male with PMH of CHF (ECHO on 05/11/16: EF 45%), Atrial fibrillation, HTN, Hyperparathyroidism, CVA, COPD, dyslipidemia, gout and cocaine abuse admitted for Afibb with RVR in setting of recent cocaine use. #Afibbrillation with RVR -Asymptomatic -PT has chronic Afibb -On Diltiazem drip 5mg/hr, initiated in ED -Eliquis 5mg PO BID -Continue cardiac monitoring on telemetry -Cardio consulted #COPD, controlled -asymptomatic -Afebrile, no leukocytosis, CXray no acute infiltrates -Duonebs prn q6 -Advair diskus 250mcg/50mcg, 1 puff BID -Spiriva 18mcg INH daily #CHF, controlled -Continue with home meds, Furosemide 20mg PO daily -ProBNP last admission was 1160 #HTN, controlled -Normotensive -Losartan 100mg PO daily #DVT Prophylaxis -Elloquis 5 mg PO -SCD;s Diet: -Heart Healthy Code Status: Full Code
[2017-01-10 05:07] VITALS: RESP 18
[2017-01-10] MEDS ORDERED: Tiotropium 18 mcg Cap For Inhalation INH SCH (09:00)
[2017-01-10] MEDS ORDERED: diltiaZEM 240 mg/24 Hours CD Cap PO SCH (09:00)
[2017-01-10] MEDS ORDERED: COLCHICINE 0.6 MG CAPSULE PO SCH (09:00)
--- NOTE | 2017-01-10 09:45 | CP.PCM.CON ---
History of Present Illness - History of Present Illness History of Present Illness: This 66-year-old man who has had multiple hospitalizations at this institution following alcohol and cocaine use arrived in the emergency room again complaining of palpitations having recently used cocaine. He has had a history of congestive cardiopathy as documented by an echocardiogram of May 2016 in which his left ventricular systolic function was found to be depressed with an ejection fraction in the range of 45% and has had chronic atrial fibrillation for which he takes an oral anticoagulation. By his account he takes this anticoagulation faithfully. He has been a long-standing cigarette smoker and has severe COPD and not a good candidate for oral beta blockade. His heart rate has been controlled using Cardizem. There has never been a myocardial infarction. I have seen and examined this patient within the last month and a half. For same symptoms. Physical examination shows a middle-aged man who is alert awake and coherent at this point and admits readily to having used cocaine prior to arriving in the emergency room for complaints of palpitations which have subsequently resolved having received IV Cardizem. His heart rate was 78 bpm and regular and his blood pressure was 146/80 mmHg. His jugular venous pressure was not eliminated and there was mild pitting edema hour both lower extremities. The chest was emphysematous. His extremities were warm and his nailbeds were pink. There was no central or peripheral cyanosis. There was no clubbing. [place] was not palpable. First and second heart sounds were distant and normal. There was no gallop. There was prolonged expiration and wheezing audible on both sides of the chest. There were no rales. His abdomen was soft area and his liver and spleen are not palpable. His electrocardiogram showed atrial fibrillation with nonspecific ST-T changes. There were no Q waves on the electrocardiogram. Again echocardiogram of May 2016 shows a mildly depressed left ventricular systolic function. His lab data was noted. Urine examination didn't reveal evidence of recent cocaine use. 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 Frequent cocaine abuse. COPD Patient has been offered detox programs. I have discussed the case with the resident. His long-term prognosis will depend on his commitment to the detox program and a change in his lifestyle. Past Patient History - Infectious Disease Hx of Infectious Diseases: None - Tetanus Immunizations Tetanus Immunization: Unknown - Past Medical History & Family History Past Medical History?: Yes - Past Social History Smoking Status: Heavy Smoker > 10 Cigarettes Daily - CARDIAC Hx Atrial Fibrillation: Yes Hx Cardia Arrhythmia: Yes Hx Congestive Heart Failure: Yes Hx Hypercholesterolemia: Yes Hx Hypertension: Yes Hx Peripheral Edema: Yes - PULMONARY Hx Asthma: Yes Hx Bronchitis: Yes Hx Chronic Obstructive Pulmonary Disease (COPD): Yes - NEUROLOGICAL Hx Neurological Disorder: Yes - HEENT Hx HEENT Problems: No - RENAL Hx Chronic Kidney Disease: No - ENDOCRINE/METABOLIC Hx Hyperthyroidism: Yes - HEMATOLOGICAL/ONCOLOGICAL Hx Human Immunodeficiency Virus (HIV): No - INTEGUMENTARY Hx Dermatological Problems: Yes - MUSCULOSKELETAL/RHEUMATOLOGICAL Hx Falls: No - GASTROINTESTINAL Hx Gastritis: Yes - GENITOURINARY/GYNECOLOGICAL Hx Genitourinary Disorders: No - PSYCHIATRIC Hx Substance Use: Yes (coccaine) - SURGICAL HISTORY Hx Surgeries: Yes Hx Orthopedic Surgery: Yes Other/Comment: Hx BILATERAL BUNIONECTOMY 1996 - ANESTHESIA Hx Anesthesia: Yes Hx Anesthesia Reactions: No Hx Malignant Hyperthermia: No Meds Allergies/Adverse Reactions: Allergies Allergy/AdvReac Type Severity Reaction Status Date / Time Penicillins Allergy RASH Verified 11/11/16 17:56 - Medications Medications: Current Medications Albuterol/Ipratropium (Duoneb 3 Mg/0.5 Mg (3 Ml) Ud) 3 ml INH RQ6 PRN PRN Reason: Shortness of Breath Last Admin: 01/10/17 07:57 Dose: 3 ml Apixaban (Eliquis) 5 mg PO BID [facility] PRN Reason: Protocol Last Admin: 01/10/17 08:28 Dose: 5 mg Aspirin (Aspirin Chewable) 81 mg PO DAILY [facility] Last Admin: 01/10/17 08:28 Dose: 81 mg Atorvastatin Calcium (Lipitor) 40 mg PO HS [facility] Last Admin: 01/09/17 23:33 Dose: 40 mg Colchicine (Colchicine) 0.6 mg PO DAILY [facility] Last Admin: 01/10/17 08:27 Dose: 0.6 mg Diltiazem HCl (Cardizem Cd) 240 mg PO DAILY [facility] Last Admin: 01/10/17 08:28 Dose: 240 mg Escitalopram Oxalate (Lexapro) 10 mg PO DAILY [facility] Last Admin: 01/10/17 08:27 Dose: 10 mg Furosemide (Lasix) 20 mg PO DAILY [facility] Last Admin: 01/10/17 08:32 Dose: 20 mg Gabapentin (Neurontin) 300 mg PO BID [facility] Last Admin: 01/10/17 08:27 Dose: 300 mg Losartan Potassium (Cozaar) 100 mg PO DAILY [facility] Last Admin: 01/10/17 08:28 Dose: 100 mg Tiotropium [place] (Spiriva) 18 mcg INH DAILY [facility] Last Admin: 01/10/17 08:28 Dose: 18 mcg Results - Vital Signs Recent Vital Signs: Last Vital Signs Temp 98.3 F 01/10/17 07:59 Pulse 75 01/10/17 08:28 Resp 18 01/10/17 07:59 BP 137/80 01/10/17 08:32 Pulse Ox 99 01/10/17 07:59 - Labs Result Diagrams: 01/09/17 08:00 01/09/17 08:00 Labs: Laboratory Results - last 24 hr 01/09/17 01/09/17 01/09/17 12:20 16:00 16:00 PT 12.5 INR 1.1 APTT 30.8 Troponin I 0.0200 Urine Opiates Screen Negative Urine Methadone Screen Negative Ur Barbiturates Screen Negative Ur Phencyclidine Scrn Negative Ur Amphetamines Screen Negative U Benzodiazepines Scrn Negative U Oth Cocaine Metabols Positive H U Cannabinoids Screen Negative
[2017-01-10 11:35] LABS: BILIRUBIN,TOTAL 1.1 mg/dl (0.2-1.3); CALCIUM 10.3 mg/dL (8.4-10.2); POTASSIUM 4.8 MMOL/L (3.6-5.0); TOTAL PROTEIN 6.2 G/DL (6.3-8.2)
[2017-01-10 11:48] LABS: ALB/GLOB RATIO 1.1 (1.0-2.1)
[2017-01-10 11:56] VITALS: BP 139/62; PULSE 62; TEMP 97.6; O2SAT 98
--- NOTE | 2017-01-10 12:42 | CP.PCM.PN ---
Objective - Vital Signs/Intake and Output Vital Signs (last 24 hours): Temp Pulse Resp BP Pulse Ox 97.6 F 62 18 139/62 98 01/10/17 11:55 01/10/17 11:55 01/10/17 11:55 01/10/17 11:55 01/10/17 11:55 - Medications Medications: Current Medications Albuterol/Ipratropium (Duoneb 3 Mg/0.5 Mg (3 Ml) Ud) 3 ml INH RQ6 PRN PRN Reason: Shortness of Breath Last Admin: 01/10/17 07:57 Dose: 3 ml Apixaban (Eliquis) 5 mg PO BID [facility] PRN Reason: Protocol Last Admin: 01/10/17 08:28 Dose: 5 mg Aspirin (Aspirin Chewable) 81 mg PO DAILY [facility] Last Admin: 01/10/17 08:28 Dose: 81 mg Atorvastatin Calcium (Lipitor) 40 mg PO HS [facility] Last Admin: 01/09/17 23:33 Dose: 40 mg Colchicine (Colchicine) 0.6 mg PO DAILY [facility] Last Admin: 01/10/17 08:27 Dose: 0.6 mg Diltiazem HCl (Cardizem Cd) 240 mg PO DAILY [facility] Last Admin: 01/10/17 08:28 Dose: 240 mg Escitalopram Oxalate (Lexapro) 10 mg PO DAILY [facility] Last Admin: 01/10/17 08:27 Dose: 10 mg Furosemide (Lasix) 20 mg PO DAILY [facility] Last Admin: 01/10/17 08:32 Dose: 20 mg Gabapentin (Neurontin) 300 mg PO BID [facility] Last Admin: 01/10/17 08:27 Dose: 300 mg Losartan Potassium (Cozaar) 100 mg PO DAILY [facility] Last Admin: 01/10/17 08:28 Dose: 100 mg Tiotropium [place] (Spiriva) 18 mcg INH DAILY [facility] Last Admin: 01/10/17 08:28 Dose: 18 mcg - Labs Labs: 01/09/17 08:00 01/10/17 10:40 PT 12.5 Seconds (9.8-13.1) 01/09/17 16:00 INR 1.1 (0.9-1.2) 01/09/17 16:00 APTT 30.8 Seconds (25.6-37.1) 01/09/17 16:00
--- NOTE | 2017-01-10 13:42 | CARD ---
APPROVED REPORT EKG Measurement Heart [id number] <Conclusion> Atrial fibrillation Abnormal ECG
--- NOTE | 2017-01-10 16:17 | CP.PCM.DIS ---
Provider - Provider Date of Admission: 01/09/17 07:53 Attending physician: Carolina Ramirez MD Time Spent in preparation of Discharge (in minutes): 30 Hospital Course - Lab Results Lab Results: Most Recent Lab Values WBC 9.1 K/uL (4.8-10.8) 01/09/17 08:00 RBC 4.81 Mil/uL (4.40-5.90) 01/09/17 08:00 Hgb 14.0 g/dL (12.0-18.0) 01/09/17 08:00 Hct 42.6 % (35.0-51.0) 01/09/17 08:00 MCV 88.6 fl (80.0-94.0) 01/09/17 08:00 MCH 29.1 pg (27.0-31.0) 01/09/17 08:00 MCHC 32.8 g/dL (33.0-37.0) L 01/09/17 08:00 RDW 17.5 % (11.5-14.5) H 01/09/17 08:00 Plt Count 151 K/uL (130-400) 01/09/17 08:00 MPV 11.0 fl (7.2-11.7) 01/09/17 08:00 Neut % (Auto) 73.4 % (50.0-75.0) 01/09/17 08:00 Lymph % (Auto) 15.6 % (20.0-40.0) L 01/09/17 08:00 [place] % (Auto) 7.4 % (0.0-10.0) 01/09/17 08:00 Eos % (Auto) 3.1 % (0.0-4.0) 01/09/17 08:00 Baso % (Auto) 0.5 % (0.0-2.0) 01/09/17 08:00 Neut # 6.7 K/uL (1.8-7.0) 01/09/17 08:00 Lymph # 1.4 K/uL (1.0-4.3) 01/09/17 08:00 Smith # 0.7 K/uL (0.0-0.8) 01/09/17 08:00 Eos # 0.3 K/uL (0.0-0.7) 01/09/17 08:00 Baso # 0.0 K/uL (0.0-0.2) 01/09/17 08:00 PT 12.5 Seconds (9.8-13.1) 01/09/17 16:00 INR 1.1 (0.9-1.2) 01/09/17 16:00 APTT 30.8 Seconds (25.6-37.1) 01/09/17 16:00 Sodium 143 mmol/l (132-148) 01/10/17 10:40 Potassium 4.8 MMOL/L (3.6-5.0) 01/10/17 10:40 Chloride 108 mmol/L (98-107) H 01/10/17 10:40 Carbon Dioxide 30 mmol/L (22-30) 01/10/17 10:40 Anion Gap 10 (10-20) 01/10/17 10:40 BUN 12 mg/dl (9-20) 01/10/17 10:40 Creatinine 1.5 mg/dl (0.8-1.5) 01/10/17 10:40 Est GFR ( Amer) 57 01/10/17 10:40 Est GFR (Non-Af Amer) 47 01/10/17 10:40 Random Glucose 101 mg/dL (75-110) 01/10/17 10:40 Calcium 10.3 mg/dL (8.4-10.2) H 01/10/17 10:40 Total Bilirubin 1.1 mg/dl (0.2-1.3) 01/10/17 10:40 AST 26 U/L (17-59) 01/10/17 10:40 ALT 38 U/L (21-72) 01/10/17 10:40 Alkaline Phosphatase 91 U/L (38-126) 01/10/17 10:40 Troponin I 0.0200 ng/mL (0.00-0.120) 01/09/17 16:00 Total Protein 6.2 G/DL (6.3-8.2) L 01/10/17 10:40 Albumin 3.2 g/dL (3.5-5.0) L 01/10/17 10:40 Globulin 2.9 gm/dL (2.2-3.9) 01/10/17 10:40 Albumin/Globulin Ratio 1.1 (1.0-2.1) 01/10/17 10:40 Urine Opiates Screen Negative (NEGATIVE) 01/09/17 12:20 Urine Methadone Screen Negative (NEGATIVE) 01/09/17 12:20 Ur Barbiturates Screen Negative (NEGATIVE) 01/09/17 12:20 Ur Phencyclidine Scrn Negative (NEGATIVE) 01/09/17 12:20 Ur Amphetamines Screen Negative (NEGATIVE) 01/09/17 12:20 U Benzodiazepines Scrn Negative (NEGATIVE) 01/09/17 12:20 U Oth Cocaine Metabols Positive (NEGATIVE) H 01/09/17 12:20 U Cannabinoids Screen Negative (NEGATIVE) 01/09/17 12:20 Alcohol, Quantitative < 10 mg/dl (0-10) 01/09/17 08:00 - Hospital Course Hospital Course: Admission Date: 01/10/17 Discharge Diagnosis: Atrial Fibrillation with RVR, Acute cocaine intoxication Hospital Course: Pt is a 66 y.o homeless male with PMHx of Cocaine abuse, Chronic Afibb on Eloquis, COPD, PVD, Hyperthyroidism, HLD, HTN who was admitted to hospital for Afibb with RVR in the setting of cocaine use. Pt was start on cardizem drip, rate was stabilized. Pt was discharge with no new medications. Seen and evaluated by editing computer publisher Dr. Amador during his stay. Discharge medications. Continue home meds; no new medications prescribed Discharge Plan: Condition: Fair Activity: Ambulating Follow up: Scheduled to f/u OP with Dr. Pena on Jan [address] Amador on March 01. Patient was made aware and verbalized understanding. Discharge Exam - Head Exam Head Exam: ATRAUMATIC, NORMAL INSPECTION, NORMOCEPHALIC - ENT Exam ENT Exam: Mucous Membranes Moist - Respiratory Exam Respiratory Exam: Clear to PA & Lateral, NORMAL BREATHING PATTERN. absent: Accessory Muscle Use, Rales, Wheezes, Respiratory Distress - Cardiovascular Exam Cardiovascular Exam: REGULAR RHYTHM, +S1, +S2. absent: Systolic Murmur - GI/Abdominal Exam GI & Abdominal Exam: Normal Bowel Sounds, Soft. absent: Tenderness - Neurological Exam Neurological exam: Alert, Oriented x3 - Psychiatric Exam Psychiatric exam: Normal Affect Discharge Plan - Follow Up Plan Condition: FAIR Disposition: HOME/ ROUTINE Instructions: Atrial Fibrillation (DC), Cocaine Abuse (DC) Additional Instructions: Follow up in [facility] on January 18, 1:20pm, with Dr. Pena and Cardiology with Dr. Amador, Mar 01 10:30am. Patient made aware and verbalized understanding. Referrals: [facility] [Outside]
--- NOTE | 2017-01-11 10:22 | CARD ---
APPROVED REPORT EKG Measurement Heart [id number] <Conclusion> Atrial fibrillation with rapid ventricular response Abnormal ECG
--- NOTE | 2017-01-11 10:22 | CARD ---
APPROVED REPORT EKG Measurement Heart [id number] <Conclusion> Atrial fibrillation Abnormal ECG
== END 2017-01-10 15:30 | disposition home or self-care (01) ==
LOC: H.ER 07:36 → H.ERHOLD 07:53 → H.TEL 11:17
PROVIDERS: ADMIT Family Medicine Geriatric Medicine; ATTEND Family Medicine Geriatric Medicine
DX: I48.2 Chronic atrial fibrillation (principal); I50.22 Chronic systolic (congestive) heart failure; J44.9 Chronic obstructive pulmonary disease, unspecified; M10.9 Gout, unspecified; Z59.0 Homelessness; Z79.01 Long term (current) use of anticoagulants; Z79.899 Other long term (current) drug therapy; Z86.73 Personal history of transient ischemic attack (TIA), and cerebral infarction without residual deficits; E05.90 Thyrotoxicosis, unspecified without thyrotoxic crisis or storm; E21.3 Hyperparathyroidism, unspecified; J40 Bronchitis, not specified as acute or chronic; K29.70 Gastritis, unspecified, without bleeding; I95.9 Hypotension, unspecified; R00.2 Palpitations; E11.51 Type 2 diabetes mellitus with diabetic peripheral angiopathy without gangrene; E78.00 Pure hypercholesterolemia, unspecified; E78.5 Hyperlipidemia, unspecified; F14.129 Cocaine abuse with intoxication, unspecified; F17.210 Nicotine dependence, cigarettes, uncomplicated; I11.0 Hypertensive heart disease with heart failure; I25.10 Atherosclerotic heart disease of native coronary artery without angina pectoris; I42.0 Dilated cardiomyopathy
CPT/HCPCS: 36415; 71010; 80053; 80320; 80324; 80345; 80346; 80349; 80353; 80358; 80361; 83992; 84484; 85025; 85610; 85730; 93005; 94640; 96374; 99283; G0378

== ENCOUNTER 2017-01-15 07:44 | Inpatient (IN) | payer MEDICAID ==
[2017-01-15 07:44] VITALS: PULSE 80
[2017-01-15 07:54] VITALS: BMI 37.1
[2017-01-15] MEDS ORDERED: Albuterol-Ipratrop 3 mg / 0.5 (3 ml) UD ONE (07:58)
[2017-01-15] MEDS ORDERED: Albuterol-Ipratrop 3 mg / 0.5 (3 ml) UD INH STA (08:06)
--- NOTE | 2017-01-15 08:17 | ED PDOC ---
HPI: SOB/CHF/COPD Time Seen by Provider: 01/15/17 07:55 Chief Complaint (Nursing): Shortness Of Breath Chief Complaint (Provider): Shortness Of Breath History Per: Patient History/Exam Limitations: no limitations Onset/Duration Of Symptoms: Days (1 day) Current Symptoms Are (Timing): Still Present Additional Complaint(s): 66 y/o male with a past medical history of Chronic Obstructive Pulmonary Disorder, Coronary Artery Disease and Atrial Fibrillation, presents to the ED complaining of shortness of breath, onset of 1 day ago. Of note, patient reports of having a dry cough and new left-sided chest pain while being seen in the ED, and describes the pain as "big". Patient also states that he is a daily smoker, but denies cocaine use. Past Medical History Reviewed: Historical Data, Nursing Documentation, Vital Signs Vital Signs: Last Vital Signs Temp 97.5 F L 01/16/17 12:16 Pulse 97 H 01/16/17 12:16 Resp 18 01/16/17 12:16 BP 136/88 01/16/17 12:16 Pulse Ox 96 01/16/17 12:16 - Medical History PMH: Asthma, Atrial Fibrillation, Bronchitis, CAD, Cardia Arrhythmia, CHF, COPD , CVA, Deep Vein Thrombosis, Gastritis, HTN, Hypercholesterolemia, Hyperlipidemia, Hyperthyroidism, Peripheral Edema Denies: Diabetes, HIV, Chronic Kidney Disease - Surgical History Surgical History: No Surg Hx - Family History Family History: States: MD, Diabetes, Hypertension (mother) - Social History Current smoker - smoking cessation education provided: Yes (Daily) Drugs: Denies - Immunization History Hx Tetanus Toxoid Vaccination: No Hx Influenza Vaccination: No Hx Pneumococcal Vaccination: No - Home Medications Home Medications: Ambulatory Orders Medication Instructions Recorded Gabapentin [Neurontin] 300 mg PO BID #30 cap 11/16/16 Aspirin [Aspirin Chewable] 81 mg PO DAILY #30 chew 12/06/16 Colchicine [Mitigare] 0.6 mg PO DAILY #30 capsule 12/06/16 Apixaban [Eliquis] 5 mg PO BID #60 tablet 12/20/16 Losartan Potassium [Cozaar] 100 mg PO DAILY #30 tablet 12/20/16 [id number] CD [Cardizem CD] 240 mg PO DAILY #30 cap 12/20/16 Albuterol HFA [Ventolin HFA 90 2 puff IH [id number] PRN #1 bottle 12/25/16 mcg/actuation (8 g)] Furosemide [Lasix] 20 mg PO DAILY 01/09/17 Aspirin [Aspirin Chewable] 81 mg PO DAILY chew 01/10/17 Atorvastatin [Lipitor] 40 mg PO HS tab 01/10/17 Escitalopram [Lexapro] 10 mg PO DAILY tab 01/10/17 Tiotropium [Spiriva] 18 mcg INH DAILY cap 01/10/17 - Allergies Allergies/Adverse Reactions: Allergies Allergy/AdvReac Type Severity Reaction Status Date / Time Penicillins Allergy RASH Verified 11/11/16 17:56 Review of Systems ROS Statement: Except As Marked, All Systems Reviewed And Found Negative Cardiovascular: Positive for: Chest Pain (left sided chest pain) Respiratory: Positive for: Cough (Dry Cough), Shortness of Breath Physical Exam - Reviewed Nursing Documentation Reviewed: Yes Vital Signs Reviewed: Yes - Physical Exam Appears: Positive for: Non-toxic, No Acute Distress Head Exam: Positive for: ATRAUMATIC, NORMOCEPHALIC Skin: Positive for: Normal Color, Warm Eye Exam: Positive for: Normal appearance, EOMI, PERRL ENT: Positive for: Normal ENT Inspection Neck: Positive for: Normal, Painless ROM, Supple Cardiovascular/Chest: Positive for: Tachycardia Respiratory: Positive for: Wheezing (bilateral wheezing) Gastrointestinal/Abdominal: Positive for: Normal Exam, Soft. Negative for: Tenderness Back: Positive for: Normal Inspection Extremity: Positive for: Normal ROM. Negative for: Pedal Edema, Deformity Neurologic/Psych: Positive for: Alert, Oriented - Laboratory Results Result Diagrams: 01/15/17 08:25 01/15/17 08:25 - ECG ECG: Positive for: Interpreted By Me, Viewed By Me ECG Rhythm: Positive for: Atrial Fibrillation (with rapid ventricular rate) Rate: 130 O2 Sat by Pulse Oximetry: 92 (RA) Pulse Ox Interpretation: Normal Medical Decision Making Medical Decision Making: Time: --08:04 Impression: --66 y/o male with Chronic Obstructive Pulmonary Disorder exacerbation, A-fib with Rapid Ventricular Response, chest pain Plan: --EKG --Labs --Drug Screen, Urne --Troponin I --Partial Thromboplastin time (coag) --prothrombin Time (coag) --Chest X-ray --Albuterol/Ipratropium 3ml InH --Cardizem 20 mg IVP --Methylprednisolone --125 mg IVP --Peak Flow pre/post --Urinalysis Accession No. : [id number] Patient Name / ID : OSCAR DOSS R / [id number] Exam Date : 01/15/2017 08:36:46 ( Approved ) Study Comment : Sex / Age : M / 66Y Creator : Aguilar Díaz MD Dictator : Aguilar Díaz MD Nail Setter : [employer] Coders : Aguilar Díaz MD Approver2 : Report Date : 01/15/2017 13:47:26 My Comment : HISTORY: SOB COMPARISON: No prior. FINDINGS: LUNGS: No active pulmonary disease. PLEURA: No significant pleural effusion identified, no pneumothorax apparent. CARDIOVASCULAR: Normal. OSSEOUS STRUCTURES: No significant abnormalities. VISUALIZED UPPER ABDOMEN: Normal. OTHER FINDINGS: None. IMPRESSION: No active disease. Scribe Attestation: Documented by Matty Yeboah acting as a scribe for Jeanne Ram MD. Provider Attestation: All medical record entries made by the Scribe were at my direction and personally dictated by me. I have reviewed the chart and agree that the record accurately reflects my personal performance of the history, physical exam, medical decision making, and the department course for this patient. I have also personally directed, reviewed, and agree with the discharge instructions and disposition. Disposition - Clinical Impression Clinical Impression: Chest pain, COPD exacerbation, Atrial fibrillation with RVR - Patient ED Disposition Is Patient to be Admitted: Yes - Disposition Disposition Time: 11:27 Condition: STABLE - Pt Status Changed To: Hospital Disposition Of: Inpatient - Admit Certification Admit to Inpatient:: After my assessment, the patient will require hospitalization for at least two midnights. This is because of the severity of symptoms shown, intensity of services needed, and/or the medical risk in this patient being treated as an outpatient. - POA Present On Arrival: None
[2017-01-15 08:48] LABS: ALB/GLOB RATIO 1.2 (1.0-2.1); ALKALINE PHOSPHATASE 106 U/L (38-126); ALT/SGPT 42 U/L (21-72); AST/SGOT 24 U/L (17-59); BILIRUBIN,TOTAL 0.9 mg/dl (0.2-1.3); BLOOD UREA NITROGEN 14 mg/dl (9-20); CALCIUM 10.8 mg/dL (8.4-10.2); CARBON DIOXIDE 28 mmol/L (22-30); CHLORIDE 110 mmol/L (98-107); GFR AFRICAN-AMERICAN > 60; GLUCOSE,RANDOM 94 mg/dL (75-110); POTASSIUM 4.2 MMOL/L (3.6-5.0); SODIUM 144 mmol/l (132-148)
[2017-01-15 08:49] LABS: BASO % 0.6 % (0.0-2.0); EOS # 0.3 K/uL (0.0-0.7); EOS % 3.7 % (0.0-4.0); HEMATOCRIT 44.5 % (35.0-51.0); LYMPH # 1.2 K/uL (1.0-4.3); LYMPH % 15.2 % (20.0-40.0); MEAN CELL VOLUME 89.4 fl (80.0-94.0); MEAN CORPUSCULAR HEMOGLOBIN 28.6 pg (27.0-31.0); MEAN CORPUSCULAR HGB CONC 31.9 g/dL (33.0-37.0); MEAN PLATELET VOLUME 10.2 fl (7.2-11.7); MONO # 0.6 K/uL (0.0-0.8); MONO % 7.2 % (0.0-10.0); NEUT # 5.9 K/uL (1.8-7.0); NEUT % 73.3 % (50.0-75.0); RED CELL DISTRIBUTION WIDTH 16.8 % (11.5-14.5); WHITE BLOOD COUNT 8.1 K/uL (4.8-10.8)
[2017-01-15 09:15] LABS: PARTIAL THROMBOPLASTIN TIME 29.6 Seconds (25.6-37.1)
--- NOTE | 2017-01-15 09:16 | CARD ---
APPROVED REPORT EKG Measurement Heart [id number] <Conclusion> Atrial fibrillation with rapid ventricular response Abnormal ECG
[2017-01-15] MEDS ORDERED: Albuterol HFA 90 mcg/actuation (8 g) IH PRN (13:11)
--- NOTE | 2017-01-15 13:49 | RAD ---
HISTORY: SOB COMPARISON: No prior. FINDINGS: LUNGS: No active pulmonary disease. PLEURA: No significant pleural effusion identified, no pneumothorax apparent. CARDIOVASCULAR: Normal. OSSEOUS STRUCTURES: No significant abnormalities. VISUALIZED UPPER ABDOMEN: Normal. OTHER FINDINGS: None. IMPRESSION: No active disease.
[2017-01-15] MEDS: diltiaZEM 240 mg/24 Hours CD Cap PO SCH (15:00)
[2017-01-15] MEDS: COLCHICINE 0.6 MG CAPSULE PO SCH (15:00)
[2017-01-15] MEDS: Tiotropium 18 mcg Cap For Inhalation INH SCH (15:01)
--- NOTE | 2017-01-15 15:03 | CP.PCM.HP ---
History of Present Illness - History of Present Illness History of Present Illness: 66 yo homeless male with PMH of CHF (ECHO on 05/11/16: EF 45%), Atrial fibrillation, HTN, Hyperparathyroidism, CVA, COPD, dyslipidemia, gout and cocaine abuse who presents to [facility] ED complaining of chest pain and palpitations. Patient states that he had two small alcoholic drinks last night, but denies any recreational drugs use. Patient reports that last time he used cocaine was last week. As per patient he has been adherent with his medications. He was admitted recently in [facility] (01/09/17) for similar complains after he used cocaine and consumed alcohol. Patient reports SOB that is his baseline. PMD: Dr Solis at [facility] Past medical hx: CHF, Afib, HTN, CVA, COPD, Hyperlipidemia, hyperparathyroidism , cocaine abuse, left adrenal mass. Medications: checked in [facility] as of 12/28/16. Aspirin 81 mg PO QD Ventolin 90 mcg/actuation Colchicine 0.6mg PO QD Eliquis 5mg PO BID Lexapro 10mg PO QD Neurontin 300mg PO BID Furosemide 20mg PO QD CXR: Atorvastatin 40mg PO HS Losartan 100mg PO QD Diltiazem CD 240mg PO QD Spiriva 18 mcg inh daily Allergies: Penicillin: Rash Family hx: Mother: DMII. Father: alcoholism. Past Surgery hx: B/L bunionectomy in 1994 Social History: homeless, lives in a long term at [facility] Smoked 2 PPD x 40 yrs, recently cutdown to 1-2 cigarettes. Drinks 1-2 beer/day . Denies recent recreational drug use( last inhaled cocaine about 2 months ago). ED course: VS: BP: 149/118, Pulse rate: 90, then increase to 130 EKG shwoed Afib with RVR Cardizem 20 mg IV once, rhythm controlled after IV Cardizem Troponin X 1 negative CBC, CMP on ER unremarkable CXR showed no acute disease Present on Admission - Present on Admission Any Indicators Present on Admission: No History of DVT/PE: No History of Uncontrolled Diabetes: No Urinary Catheter: No Decubitus Ulcer Present: No Review of Systems - Review of Systems All systems: reviewed and no additional remarkable complaints except (as per HPI ) Past Patient History - Infectious Disease Hx of Infectious Diseases: None - Tetanus Immunizations Tetanus Immunization: Unknown - Past Medical History & Family History Past Medical History?: Yes - Past Social History Smoking Status: Light Smoker < 10 Cigarettes Daily - CARDIAC Hx Cardiac Disorders: Yes Hx Atrial Fibrillation: Yes Hx Cardia Arrhythmia: Yes Hx Circulatory Problems: Yes (DVT) Hx Congestive Heart Failure: Yes Hx Hypercholesterolemia: Yes Hx Hypertension: Yes Hx Peripheral Edema: Yes - PULMONARY Hx Respiratory Disorders: Yes Hx Asthma: Yes Hx Bronchitis: Yes Hx Chronic Obstructive Pulmonary Disease (COPD): Yes Hx Pneumonia: Yes - NEUROLOGICAL Hx Neurological Disorder: Yes HX Cerebrovascular Accident: Yes - HEENT Hx HEENT Problems: No - RENAL Hx Chronic Kidney Disease: No - ENDOCRINE/METABOLIC Hx Endocrine Disorders: Yes Hx Hyperthyroidism: Yes - HEMATOLOGICAL/ONCOLOGICAL Hx Blood Disorders: No Hx AIDS: No Hx Human Immunodeficiency Virus (HIV): No - INTEGUMENTARY Hx Dermatological Problems: No - MUSCULOSKELETAL/RHEUMATOLOGICAL Hx Musculoskeletal Disorders: No Hx Falls: No - GASTROINTESTINAL Hx Gastrointestinal Disorders: Yes Hx Gastritis: Yes - GENITOURINARY/GYNECOLOGICAL Hx Genitourinary Disorders: No - PSYCHIATRIC Hx Psychophysiologic Disorder: Yes Hx Anxiety: Yes Hx Substance Use: Yes (coccaine) - SURGICAL HISTORY Hx Surgeries: Yes Hx Orthopedic Surgery: Yes Other/Comment: Hx BILATERAL BUNIONECTOMY 1996 - ANESTHESIA Hx Anesthesia: Yes Hx Anesthesia Reactions: No Hx Malignant Hyperthermia: No Has any member of the family had a problem w/ anesthesia?: No Meds Allergies/Adverse Reactions: Allergies Allergy/AdvReac Type Severity Reaction Status Date / Time Penicillins Allergy RASH Verified 11/11/16 17:56 Physical Exam - Constitutional Appears: Non-toxic, No Acute Distress - ENT Exam ENT Exam: Mucous Membranes Moist - Respiratory Exam Respiratory Exam: Rales (right lower lobe), NORMAL BREATHING PATTERN. absent: Rhonchi, Wheezes, Respiratory Distress, Stridor - Cardiovascular Exam Cardiovascular Exam: Tachycardia, Irregular Rhythm, +S1, +S2 - GI/Abdominal Exam GI & Abdominal Exam: Normal Bowel Sounds, Soft. absent: Guarding, Rigid, Tenderness - Extremities Exam Extremities exam: Positive for: normal inspection, pedal edema. Negative for: calf tenderness Additional comments: mild lower extremities pitting edema - Neurological Exam Neurological exam: Alert, Oriented x3 - Skin Skin Exam: Dry, Intact, Normal Color Results - Vital Signs Recent Vital Signs: Last Vital Signs Temp 98.1 F 01/15/17 07:48 Pulse 117 H 01/15/17 13:52 Resp 18 01/15/17 13:52 BP 126/74 01/15/17 09:00 Pulse Ox 100 01/15/17 09:00 - Labs Result Diagrams: 01/15/17 08:25 01/15/17 08:25 Labs: Laboratory Results - last 24 hr 01/15/17 01/15/17 01/15/17 08:25 08:25 08:25 WBC 8.1 RBC 4.98 Hgb 14.2 Hct 44.5 MCV 89.4 MCH 28.6 MCHC 31.9 L RDW 16.8 H Plt Count 160 MPV 10.2 Neut % (Auto) 73.3 Lymph % (Auto) 15.2 L [place] % (Auto) 7.2 Eos % (Auto) 3.7 Baso % (Auto) 0.6 Neut # 5.9 Lymph # 1.2 [place] # 0.6 Eos # 0.3 Baso # 0.0 PT 12.8 INR 1.2 APTT 29.6 Sodium 144 Potassium 4.2 Chloride 110 H Carbon Dioxide 28 Anion Gap 10 BUN 14 Creatinine 1.2 Est GFR ( Amer) > 60 Est GFR (Non-Af Amer) > 60 Random Glucose 94 Calcium 10.8 H Total Bilirubin 0.9 AST 24 ALT 42 Alkaline Phosphatase 106 Troponin I 0.0130 Total Protein 7.0 Albumin 3.8 Globulin 3.2 Albumin/Globulin Ratio 1.2 Assessment & Plan (1) Chest pain Assessment and Plan: R/O ACS most likely 2/2 Afib w/ RVR Troponin I x 1 negative on admission f/u troponin I x 2 EKG on admission showed Afib with RVR CXR showed no active disease Status: Acute (2) Atrial fibrillation with RVR Assessment and Plan: S/P Cardizem 20 mg IVP once at ER resume home Cardizem 240 mg PO daily EKG on admission showed Afib with RVR c/w home Eliquis 5 mg PO BID f/u Drug screen Consider Cardiology if needed Status: Acute (3) Hypertension Assessment and Plan: c/w home meds Status: Chronic (4) CHF (congestive heart failure) Assessment and Plan: Systolic CHF No in exacerbation Echo done on 05/11/16 showed mildly impaired LV function. EF: 45 % on furosemide 20 mg PO on Cardizem 240 mg PO Status: Chronic (5) DVT prophylaxis Assessment and Plan: on Eliquis Status: Acute (6) Full code status Status: Chronic - Date & Time Date: 01/15/17 Time: 10:30
[2017-01-15 19:06] LABS: RBC URINE 1 /hpf (0-3); URINE BACTERIA RARE (<OCC); URINE BILIRUBIN NEGATIVE (NEGATIVE); URINE BLOOD NEGATIVE (NEGATIVE); URINE COLOR YELLOW (YELLOW); URINE GLUCOSE (UA) >=500 mg/dL (Normal); URINE KETONE NEGATIVE (NEGATIVE); URINE LEUKOCYTE ESTERASE NEG Leu/uL (Negative); URINE PROTEIN NEGATIVE (NEGATIVE); URINE UROBILINOGEN 0.2-1.0 mg/dL (0.2-1.0); WBC URINE < 1 /hpf (0-5)
--- NOTE | 2017-01-16 01:12 | CON ---
CARDIOLOGY CONSULTATION REASON FOR CONSULTATION: Rapid atrial fibrillation and congestive heart failure. HISTORY OF PRESENT ILLNESS: The patient is 66 years old male who has a history of chronic atrial fibrillation, history of EtOH abuse, chronic obstructive lung disease, homeless who lives in a [place] [facility] [place], presenting because of cough and left-sided chest pain and was found to be in rapid atrial fibrillation. The patient required a total of 40 mg of IV Cardizem as well as 1 dose of Cardizem CD 240. His rate is currently in the 90s. The patient denies any chest pain at this time. The patient underwent cardiac catheterization in 06/[address] Dougherty, which revealed nonobstructive coronaries. Distal left anterior descending disease of diffuse 50% narrowing and normal left ventricular systolic function. The patient has history of cocaine abuse and tested positive as recent as 12/31/2016 and 01/09/2017 for cocaine. SOCIAL HISTORY: The patient is homeless. He lives in a [place] at night and lives in a senior living house during the day. MEDICATIONS: Aspirin 81 mg once a day, Cardizem CD 240 mg once a day, colchicine 0.6 mg once a day, Cozaar 100 mg once a day, Eliquis 5 mg twice a day, Lasix 20 mg twice a day. PHYSICAL EXAMINATION: GENERAL: The patient is a middle-aged male, who does not appear to be in any acute distress. VITAL SIGNS: Blood pressure 138/88, heart rate 122, temperature 97.9, respirations 20. HEENT: Normocephalic. CHEST: Bilateral rhonchi. HEART: S1 and S2 are regular. ABDOMEN: Soft. EXTREMITIES: No edema. LABORATORY DATA: SMA-7 is within normal limit except for chloride of 110. Calcium is elevated at 10.4. Two sets of troponins are not in elevated range. Urine drug screen at this time is negative. EKG revealed atrial fibrillation with rapid ventricular response at 130 earlier. ASSESSMENT: 1. Chronic atrial fibrillation. 2. Nonobstructive disease of the left anterior descending on a recent cardiac catheterization. RECOMMENDATIONS: Continue Cardizem 240 mg once a day, Cozaar 100 mg once a day, Eliquis 5 mg twice a day, aspirin 81 mg once a day. Start Coreg 3.125 mg twice a day. Vicente Abdalla MD [facility] # [id number]
[2017-01-16] MEDS: COLCHICINE 0.6 MG CAPSULE PO SCH (08:25)
[2017-01-16] MEDS: Tiotropium 18 mcg Cap For Inhalation INH SCH (08:25)
[2017-01-16] MEDS: diltiaZEM 240 mg/24 Hours CD Cap PO SCH (08:26)
--- NOTE | 2017-01-16 10:49 | CP.PCM.PN ---
Objective - Vital Signs/Intake and Output Vital Signs (last 24 hours): Temp Pulse Resp BP Pulse Ox 97.8 F 88 20 151/90 H 98 01/16/17 08:17 01/16/17 08:26 01/16/17 08:17 01/16/17 08:26 01/16/17 08:17 - Medications Medications: Current Medications Albuterol (Ventolin Hfa 90 Mcg/Actuation (8 G)) 2 puff IH RQ6 PRN PRN Reason: Shortness of Breath Apixaban (Eliquis) 5 mg PO BID [facility] PRN Reason: Protocol Last Admin: 01/16/17 08:25 Dose: 5 mg Aspirin (Aspirin Chewable) 81 mg PO DAILY [facility] Last Admin: 01/16/17 08:26 Dose: 81 mg Atorvastatin Calcium (Lipitor) 40 mg PO HS [facility] Last Admin: 01/15/17 21:18 Dose: 40 mg Carvedilol (Coreg) 3.125 mg PO Q12 [facility] Last Admin: 01/16/17 08:25 Dose: 3.125 mg Colchicine (Colchicine) 0.6 mg PO DAILY [facility] Last Admin: 01/16/17 08:25 Dose: 0.6 mg Diltiazem HCl (Cardizem Cd) 240 mg PO DAILY [facility] Last Admin: 01/16/17 08:26 Dose: 240 mg Escitalopram Oxalate (Lexapro) 10 mg PO DAILY [facility] Last Admin: 01/16/17 08:27 Dose: 10 mg Furosemide (Lasix) 20 mg PO DAILY [facility] Last Admin: 01/16/17 08:24 Dose: 20 mg Gabapentin (Neurontin) 300 mg PO BID [facility] Last Admin: 01/16/17 08:25 Dose: 300 mg Losartan Potassium (Cozaar) 100 mg PO DAILY [facility] Last Admin: 01/16/17 08:26 Dose: 100 mg Tiotropium [place] (Spiriva) 18 mcg INH DAILY [facility] Last Admin: 01/16/17 08:25 Dose: 18 mcg - Labs Labs: 01/15/17 08:25 01/15/17 08:25 PT 12.8 Seconds (9.8-13.1) 01/15/17 08:25 INR 1.2 (0.9-1.2) 01/15/17 08:25 APTT 29.6 Seconds (25.6-37.1) 01/15/17 08:25 Assessment and Plan - Assessment and Plan (Free Text) Assessment: 66 yo homeless male with PMH of CHF (ECHO on 05/11/16: EF 45%), Atrial fibrillation, HTN, Hyperparathyroidism, CVA, COPD, dyslipidemia, gout and cocaine abuse who presents to [facility] ED complaining of chest pain and palpitations and was found to have Afibb with RVR. #Chest pain 2/2 Afibb with RVR -No complaints of CP today -EKG: no ischemic changes, Afibb w/ RVR -Troponins negative x3 -Utox negative -Received 2 IV doses of Cardizem 20mg -C/w home Cardizem 240mg po daily -Cardiology consulted- start coreg 3.125mg PO BID for additional rate control Afibb -Restarted home meds HTN -C/w losartan
[2017-01-16 12:17] VITALS: RESP 18
[2017-01-16] MEDS ORDERED: Digoxin 125 mcg (0.125 mg) Tab PO ONE (14:10)
--- NOTE | 2017-01-16 14:31 | CP.PCM.DIS ---
Provider - Provider Date of Admission: 01/15/17 11:27 Attending physician: Carolina Ramirez MD Time Spent in preparation of Discharge (in minutes): 30 Hospital Course - Lab Results Lab Results: Most Recent Lab Values WBC 8.1 K/uL (4.8-10.8) 01/15/17 08:25 RBC 4.98 Mil/uL (4.40-5.90) 01/15/17 08:25 Hgb 14.2 g/dL (12.0-18.0) 01/15/17 08:25 Hct 44.5 % (35.0-51.0) 01/15/17 08:25 MCV 89.4 fl (80.0-94.0) 01/15/17 08:25 MCH 28.6 pg (27.0-31.0) 01/15/17 08:25 MCHC 31.9 g/dL (33.0-37.0) L 01/15/17 08:25 RDW 16.8 % (11.5-14.5) H 01/15/17 08:25 Plt Count 160 K/uL (130-400) 01/15/17 08:25 MPV 10.2 fl (7.2-11.7) 01/15/17 08:25 Neut % (Auto) 73.3 % (50.0-75.0) 01/15/17 08:25 Lymph % (Auto) 15.2 % (20.0-40.0) L 01/15/17 08:25 [place] % (Auto) 7.2 % (0.0-10.0) 01/15/17 08:25 Eos % (Auto) 3.7 % (0.0-4.0) 01/15/17 08:25 Baso % (Auto) 0.6 % (0.0-2.0) 01/15/17 08:25 Neut # 5.9 K/uL (1.8-7.0) 01/15/17 08:25 Lymph # 1.2 K/uL (1.0-4.3) 01/15/17 08:25 [place] # 0.6 K/uL (0.0-0.8) 01/15/17 08:25 Eos # 0.3 K/uL (0.0-0.7) 01/15/17 08:25 Baso # 0.0 K/uL (0.0-0.2) 01/15/17 08:25 PT 12.8 Seconds (9.8-13.1) 01/15/17 08:25 INR 1.2 (0.9-1.2) 01/15/17 08:25 APTT 29.6 Seconds (25.6-37.1) 01/15/17 08:25 Sodium 144 mmol/l (132-148) 01/15/17 08:25 Potassium 4.2 MMOL/L (3.6-5.0) 01/15/17 08:25 Chloride 110 mmol/L (98-107) H 01/15/17 08:25 Carbon Dioxide 28 mmol/L (22-30) 01/15/17 08:25 Anion Gap 10 (10-20) 01/15/17 08:25 BUN 14 mg/dl (9-20) 01/15/17 08:25 Creatinine 1.2 mg/dl (0.8-1.5) 01/15/17 08:25 Est GFR ( Amer) > 60 01/15/17 08:25 Est GFR (Non-Af Amer) > 60 01/15/17 08:25 Random Glucose 94 mg/dL (75-110) 01/15/17 08:25 Calcium 10.8 mg/dL (8.4-10.2) H 01/15/17 08:25 Total Bilirubin 0.9 mg/dl (0.2-1.3) 01/15/17 08:25 AST 24 U/L (17-59) 01/15/17 08:25 ALT 42 U/L (21-72) 01/15/17 08:25 Alkaline Phosphatase 106 U/L (38-126) 01/15/17 08:25 Troponin I < 0.0120 ng/mL (0.00-0.120) 01/15/17 23:15 Total Protein 7.0 G/DL (6.3-8.2) 01/15/17 08:25 Albumin 3.8 g/dL (3.5-5.0) 01/15/17 08:25 Globulin 3.2 gm/dL (2.2-3.9) 01/15/17 08:25 Albumin/Globulin Ratio 1.2 (1.0-2.1) 01/15/17 08:25 Urine Color Yellow (YELLOW) 01/15/17 18:53 Urine Clarity Clear (Clear) 01/15/17 18:53 Urine pH 5.0 (5.0-8.0) 01/15/17 18:53 Ur Specific [place] 1.022 (1.003-1.030) 01/15/17 18:53 Urine Protein Negative mg/dL (NEGATIVE) 01/15/17 18:53 Urine Glucose (UA) >=500 mg/dL (Normal) 01/15/17 18:53 Urine Ketones Negative mg/dL (NEGATIVE) 01/15/17 18:53 Urine Blood Negative (NEGATIVE) 01/15/17 18:53 Urine Nitrate Negative (NEGATIVE) 01/15/17 18:53 Urine Bilirubin Negative (NEGATIVE) 01/15/17 18:53 Urine Urobilinogen 0.2-1.0 mg/dL (0.2-1.0) 01/15/17 18:53 Ur Leukocyte Esterase Neg Mike/uL (Negative) 01/15/17 18:53 Urine RBC (Auto) 1 /hpf (0-3) 01/15/17 18:53 Urine Microscopic WBC < 1 /hpf (0-5) 01/15/17 18:53 Ur Squamous Epith Cells < 1 /hpf (0-5) 01/15/17 18:53 Urine Bacteria Rare (<OCC) 01/15/17 18:53 Urine Opiates Screen Negative (NEGATIVE) 01/15/17 18:53 Urine Methadone Screen Negative (NEGATIVE) 01/15/17 18:53 Ur Barbiturates Screen Negative (NEGATIVE) 01/15/17 18:53 Ur Phencyclidine Scrn Negative (NEGATIVE) 01/15/17 18:53 Ur Amphetamines Screen Negative (NEGATIVE) 01/15/17 18:53 U Benzodiazepines Scrn Negative (NEGATIVE) 01/15/17 18:53 U Oth Cocaine Metabols Negative (NEGATIVE) 01/15/17 18:53 U Cannabinoids Screen Negative (NEGATIVE) 01/15/17 18:53 - Hospital Course Hospital Course: Admission Date: 01/15 Consults: Cadiology (Dr. Carey) Discharge Diagnosis: Afibb with RVR Hospital Course: Pt is a 66 y/o homeless male with PMHX of active cocaine abuse , CHF, COPD, Afibb, Hyperparathyroidism, who was admitted to [facility] for Afibb with RVR with urine tox screen negative for cocaine. Pt was given IV Diltiazem and Coreg in additional to his home medication and his rate and arrhythmia was stabilized. On discharge, he was hemodynamically stable and asymptomatic. He was discharged on Digoxin for additional rate control. Discharge Medication: Aspirin 81 mg PO QD Ventolin 90 mcg/actuation Colchicine 0.6mg PO QD Eliquis 5mg PO BID Lexapro 10mg PO QD Neurontin 300mg PO BID Furosemide 20mg PO QD Atorvastatin 40mg PO HS Losartan 100mg PO QD Diltiazem CD 240mg PO QD Spiriva 18 mcg inh daily Digoxin 0.125mg daily Condition upon Discharge: Fair Activity: Ambulating Discharge Instructions: Follow up with tractor expert appointment , Dr. Amador on 03/01. Pt made aware. Continue taking Digoxin in addition with current home medications. Discharge Exam - Head Exam Head Exam: ATRAUMATIC, NORMOCEPHALIC - ENT Exam ENT Exam: Mucous Membranes Moist - Respiratory Exam Respiratory Exam: Clear to PA & Lateral. absent: Rales, Wheezes - Cardiovascular Exam Cardiovascular Exam: REGULAR RHYTHM, +S1, +S2. absent: Systolic Murmur - GI/Abdominal Exam GI & Abdominal Exam: Normal Bowel Sounds, Soft. absent: Tenderness - Extremities Exam Extremities exam: pedal edema - Neurological Exam Neurological exam: Alert, Oriented x3 - Psychiatric Exam Psychiatric exam: Normal Affect Discharge Plan - Discharge Medications Prescriptions: Digoxin [Lanoxin] 0.125 mg PO DAILY 30 Days #30 tab - Follow Up Plan Condition: STABLE Disposition: HOME/ ROUTINE
[2017-01-16] MEDS ORDERED: Digoxin 125 mcg (0.125 mg) Tab PO SCH (15:15)
[2017-01-16 15:52] VITALS: BP 154/92; PULSE 81; TEMP 97.6; O2SAT 97
--- NOTE | 2017-01-16 17:36 | PN ---
DATE: SUBJECTIVE: The patient denies chest pain. PHYSICAL EXAMINATION: VITAL SIGNS: Blood pressure 136/88, heart rate 97, temperature 97.5, respirations 18. HEENT: Normocephalic. CHEST: Clear. HEART: S1 and S2, regular. EXTREMITIES: No edema. ASSESSMENT: 1. Chronic atrial fibrillation. 2. Cocaine abuse in the past. RECOMMENDATIONS: Continue Cardizem CD 240 mg once a day, aspirin 81 mg once a day, Coreg 3.125 mg twice a day, Eliquis 5 mg once a day. Start digoxin 0.125 mg twice a day. Case was discussed with the medical team . Vicente Abdalla MD
[2017-01-17] MEDS ORDERED: Digoxin 125 mcg (0.125 mg) Tab PO SCH (09:00)
== END 2017-01-16 15:55 | disposition home or self-care (01) | DRG 544 ==
LOC: H.ER 07:44 → H.ERHOLD 11:27 → H.TEL 13:26
PROVIDERS: ADMIT Family Medicine Geriatric Medicine; ATTEND Family Medicine Geriatric Medicine
DX: I48.2 Chronic atrial fibrillation (principal); I50.22 Chronic systolic (congestive) heart failure; I11.0 Hypertensive heart disease with heart failure; J44.9 Chronic obstructive pulmonary disease, unspecified; F17.200 Nicotine dependence, unspecified, uncomplicated; Z59.0 Homelessness; Z79.01 Long term (current) use of anticoagulants; Z88.0 Allergy status to penicillin; I25.10 Atherosclerotic heart disease of native coronary artery without angina pectoris; Z98.61 Coronary angioplasty status; Z86.73 Personal history of transient ischemic attack (TIA), and cerebral infarction without residual deficits; Z86.718 Personal history of other venous thrombosis and embolism; K29.70 Gastritis, unspecified, without bleeding; E78.00 Pure hypercholesterolemia, unspecified; E78.5 Hyperlipidemia, unspecified; M10.9 Gout, unspecified; E21.3 Hyperparathyroidism, unspecified

== ENCOUNTER 2017-01-24 01:13 | Emergency (ER) | payer MEDICAID ==
[2017-01-24 01:13] VITALS: PULSE 80
[2017-01-24 01:26] VITALS: RESP 18; TEMP 98
[2017-01-24] MEDS ORDERED: Albuterol-Ipratrop 3 mg / 0.5 (3 ml) UD INH STA ×2 (01:38)
--- NOTE | 2017-01-24 01:48 | ED PDOC ---
HPI: SOB/CHF/COPD Chief Complaint (Nursing): Shortness Of Breath History Per: Patient Associated Symptoms: denies: Fever, Chills Additional History Per: Patient Additional Complaint(s): Pt is a 66 y/o homeless male with PMHx of cocaine abuse, COPD, Afibb, HTN, Hyperparathyroidism brought to ED from alf with complaints of shortness of breath. Patient reports that he has had non productive cough for 2-3 days associated with worsening shortness of breath and chest tightness. Denies fever , chills, chest pain, n/v/d, or worsening LE edema. Denies recent cocaine use. Past Medical History Vital Signs: Last Vital Signs Temp 98 F 01/24/17 01:23 Pulse 94 H 01/24/17 01:23 Resp 18 01/24/17 02:09 BP 165/98 H 01/24/17 01:23 Pulse Ox 98 01/24/17 02:59 - Medical History PMH: Anxiety, Asthma, Atrial Fibrillation, Bronchitis, CAD, Cardia Arrhythmia, CHF, COPD, CVA, Deep Vein Thrombosis, Gastritis, HTN, Hypercholesterolemia, Hyperlipidemia, Hyperthyroidism, Peripheral Edema, Pneumonia Denies: Diabetes, HIV, Chronic Kidney Disease - Family History Family History: States: [place], Diabetes, Hypertension (mother) - Immunization History Hx Tetanus Toxoid Vaccination: No Hx Influenza Vaccination: No Hx Pneumococcal Vaccination: No - Home Medications Home Medications: Ambulatory Orders Medication Instructions Recorded Gabapentin [Neurontin] 300 mg PO BID #30 cap 11/16/16 Aspirin [Aspirin Chewable] 81 mg PO DAILY #30 chew 12/06/16 Colchicine [Mitigare] 0.6 mg PO DAILY #30 capsule 12/06/16 Apixaban [Eliquis] 5 mg PO BID #60 tablet 12/20/16 Losartan Potassium [Cozaar] 100 mg PO DAILY #30 tablet 12/20/16 [id number] CD [Cardizem CD] 240 mg PO DAILY #30 cap 12/20/16 Albuterol HFA [Ventolin HFA 90 2 puff IH [id number] PRN #1 bottle 12/25/16 mcg/actuation (8 g)] Furosemide [Lasix] 20 mg PO DAILY 01/09/17 Atorvastatin [Lipitor] 40 mg PO HS tab 01/10/17 Escitalopram [Lexapro] 10 mg PO DAILY tab 01/10/17 Tiotropium [Spiriva] 18 mcg INH DAILY cap 01/10/17 Digoxin [Lanoxin] 0.125 mg PO DAILY 30 Days #30 tab 01/16/17 - Allergies Allergies/Adverse Reactions: Allergies Allergy/AdvReac Type Severity Reaction Status Date / Time Penicillins Allergy RASH Verified 01/24/17 01:22 Curb-65 Severity Score - CURB-65 Severity Score Confusion: No Bun >19mg/dl (>7mmol/L): No Respiratory Rate greater than/equal to 30: No Systolic BP <90 or Diastolic BP less than/equal 60mmHg: No Age >64: No Curb-65 Score: 0 Percentage 30-day mortality: 0.6% Wells Criteria for PE - Wells Criteria for Pulmonary Embolism Clinical Signs and Symptoms of DVT: No P.E is #1 Diagnosis, or Equally Likely: No Heart Rate >100: No Immobilization at least 3 days;Surgery previous 4 weeks: No Previous, objectively diagnosed PE or DVT: Yes Hemoptysis: No Malignancy w/treatment within 6 months, or palliative: No Total Score: 1.5 Review of Systems Constitutional: Negative for: Fever, Chills, Sweats Cardiovascular: Negative for: Chest Pain, Orthopnea, Edema Respiratory: Positive for: Cough, Shortness of Breath, SOB with Exertion. Negative for: Hemoptysis, Sputum Gastrointestinal: Negative for: Nausea, Vomiting, Abdominal Pain Genitourinary Male: Negative for: Dysuria Neurological: Negative for: Weakness Physical Exam - Physical Exam Appears: Positive for: Well, Non-toxic, No Acute Distress (Labored breathing) Skin: Positive for: Normal Color Eye Exam: Positive for: Normal appearance Cardiovascular/Chest: Positive for: Irregularly Irregular. Negative for: Chest Non Tender, JVD, Murmur Respiratory: Positive for: Decreased Breath Sounds, Accessory Muscle Use, Crackles, Wheezing. Negative for: Rhonchi, Stridor, Plerual Rub Pulses-Dorsalis Pedis (L): 2+ Pulses-Dorsalis Pedis (R): 2+ Neurologic/Psych: Positive for: Alert - ECG O2 Sat by Pulse Oximetry: 99 - Progress Re-evaluation Time: 01:35 Condition: Improved (Pt seen and evaluated after recieveing nebulizer treatments. Remarkably improved. Pt denies any SOB and physical exam findings improved.) Medical Decision Making Medical Decision Making: Pt is a 66 y/o homeless male with PMHx of cocaine abuse, COPD, Afibb, HTN, Hyperparathyroidism brought to ED from alf with complaints of worsening shortness of breath. Likely a COPD exacerbation in the setting of a recent URI. EKG: Atrial Fibrillation, HR 90 ED Course: Albuterol/Ipratropium Prednisone 60mg PO Cxray Disposition - Clinical Impression Clinical Impression: COPD (chronic obstructive pulmonary disease) - Disposition Referrals: Maricruz Solis MD [Primary Care Provider] - Disposition: Routine/Home Disposition Time: 04:47 Condition: STABLE Instructions: COPD (Chronic Obstructive Pulmonary Disease) (ED) Forms: [facility] (Slovak)
[2017-01-24 05:09] VITALS: BP 147/84; PULSE 81; O2SAT 96
--- NOTE | 2017-01-24 12:32 | RAD ---
HISTORY: shortness of breath COMPARISON: Comparison 01/15/2017. FINDINGS: LUNGS: Poor inspiration with low lung volumes, crowded bronchovascular markings and mild bibasilar atelectasis. PLEURA: No significant pleural effusion identified, no pneumothorax apparent. CARDIOVASCULAR: Heart appears enlarged. OSSEOUS STRUCTURES: No significant abnormalities. VISUALIZED UPPER ABDOMEN: Normal. OTHER FINDINGS: None. IMPRESSION: Poor inspiration with low lung volumes, crowded bronchovascular markings and mild bibasilar atelectasis.
--- NOTE | 2017-01-26 11:57 | CARD ---
APPROVED REPORT EKG Measurement Heart [id number] <Conclusion> Atrial fibrillation Abnormal ECG
== END 2017-01-24 05:07 | disposition home or self-care (01) ==
LOC: H.ER 01:13
DX: J44.9 Chronic obstructive pulmonary disease, unspecified (principal); I11.0 Hypertensive heart disease with heart failure; E05.90 Thyrotoxicosis, unspecified without thyrotoxic crisis or storm; E78.00 Pure hypercholesterolemia, unspecified; I25.10 Atherosclerotic heart disease of native coronary artery without angina pectoris; I48.91 Unspecified atrial fibrillation; Z79.01 Long term (current) use of anticoagulants; Z79.82 Long term (current) use of aspirin; Z86.718 Personal history of other venous thrombosis and embolism; Z86.73 Personal history of transient ischemic attack (TIA), and cerebral infarction without residual deficits; Z88.0 Allergy status to penicillin

== ENCOUNTER 2017-01-29 18:07 | Emergency (ER) | payer MEDICAID ==
[2017-01-29 18:08] VITALS: PULSE 80
[2017-01-29] MEDS ORDERED: Albuterol-Ipratrop 3 mg / 0.5 (3 ml) UD IH STA ×3 (18:29→18:39)
--- NOTE | 2017-01-29 18:33 | ED PDOC ---
Arrival/HPI - General Chief Complaint: Cough, Cold, Congestion Time Seen by Provider: 01/29/17 18:22 - History of Present Illness Narrative History of Present Illness (Text): 66 y/o M c PMHx asthma p/w dyspnea x 1 day. Reports similar to previous asthma exacerbation. Reports subjective feve, and cough productive of yellow sputum. Denies chest pain, vomiting, leg swelling. Past Medical History - Infectious Disease Hx of Infectious Diseases: None - Tetanus Immunization Tetanus Immunization: Unknown - Cardiac Hx Atrial Fibrillation: Yes Hx Coronary Artery Disease: Yes Hx Cardiac Arrhythmia: Yes Hx Congestive Heart Failure: Yes Hx Hypertension: Yes Hx Peripheral Edema: Yes - Pulmonary Hx Asthma: Yes Hx Bronchitis: Yes Hx Chronic Obstructive Pulmonary Disease (COPD): Yes Hx Pneumonia: Yes - Neurological Hx Neurological Disorder: Yes HX Cerebrovascular Accident: Yes - HEENT Hx HEENT Disorder: No - Renal Hx Renal Disorder: No - Endocrine/Metabolic Hx Hyperthyroidism: Yes - Hematological/Oncological Hx Blood Disorders: No Hx AIDS: No - Integumentary Hx Dermatological Disorder: No - Musculoskeletal/Rheumatological Hx Musculoskeletal Disorders: No Hx Falls: No - Gastrointestinal Hx Gastritis: Yes - Genitourinary/Gynecological Hx Genitourinary Disorders: No - Psychiatric Hx Anxiety: Yes Hx Substance Use: Yes (coccaine) - Surgical History Hx Orthopedic Surgery: Yes Other/Comment: Hx BILATERAL BUNIONECTOMY 1996 - Anesthesia Hx Anesthesia: Yes Hx Anesthesia Reactions: No Hx Malignant Hyperthermia: No - Suicidal Assessment Feels Threatened In Home Enviroment: No Family/Social History Family/Social History: No Known Family HX Smoking Status: Light Smoker < 10 Cigarettes Daily Hx Alcohol Use: Yes Hx Substance Use: Yes (coccaine) Substance used: history of cocaine abuse Allergies/Home Meds Allergies/Adverse Reactions: Allergies Penicillins Allergy (Verified 01/29/17 18:16) RASH Home Medications: Home Meds Medication Instructions Recorded Confirmed Furosemide [Lasix] 20 mg PO DAILY 01/09/17 01/15/17 Review of Systems - Physician Review All systems were reviewed & negative as marked: Yes - Review of Systems Cardiovascular: absent: Chest Pain Gastrointestinal: absent: Vomiting Physical Exam - Physical Exam Narrative Physical Exam (Text): Gen: NAD Head: NC/AT Eyes: EOMI ENT: MMM Neck: Supple Chest: No tenderness Heart: Regular rate Lungs: Expiratory wheezing diffusely Abdomen: Soft, nontender Extremities: No swelling or tenderness Skin: No rash Neuro: Alert, no focal deficit Vital Signs Temp Pulse Resp BP Pulse Ox 01/29/17 18:16 98.2 F 73 16 185/99 H 97 Medical Decision Making ED Course and Treatment: Treat with duonebs, steroids, check CXR to rule out underlying PNA. Reassess. 01/29/17 19:26 Patient feels breathing is improved. On auscultation, wheezing minimal. CXR no consolidation or infiltrate. Will discharge home, continue albuterol, steroids, f/u primary care, return to ED for worsening dyspnea or any other problem. - RAD Interpretation Radiology Orders: 01/29/17 18:30 CHEST TWO VIEWS (PA/LAT) [RAD] Stat - Medication Orders Current Medication Orders: Discontinued Medications Albuterol/Ipratropium (Duoneb 3 Mg/0.5 Mg (3 Ml) Ud) 3 ml IH Q15M STA Stop: 01/29/17 18:30 Last Admin: 01/29/17 18:47 Dose: 3 ml Albuterol/Ipratropium (Duoneb 3 Mg/0.5 Mg (3 Ml) Ud) 3 ml IH STAT STA Stop: 01/29/17 18:39 Last Admin: 01/29/17 18:47 Dose: 3 ml Albuterol/Ipratropium (Duoneb 3 Mg/0.5 Mg (3 Ml) Ud) 3 ml IH STAT STA Stop: 01/29/17 18:40 Last Admin: 01/29/17 18:47 Dose: 3 ml Prednisone (Prednisone Tab) 60 mg PO STAT STA Stop: 01/29/17 18:31 Last Admin: 01/29/17 18:46 Dose: 60 mg Disposition/Present on Arrival - Present on Arrival Any Indicators Present on Arrival: No History of DVT/PE: No History of Uncontrolled Diabetes: No Urinary Catheter: No History Surgical Site Infection Following: None - Disposition Have Diagnosis and Disposition been Completed?: Yes Diagnosis: Asthma exacerbation Disposition: HOME/ ROUTINE Disposition Time: 19:33 Patient Plan: Discharge Condition: STABLE Discharge Instructions (ExitCare): Asthma (ED) Prescriptions: Albuterol HFA [Ventolin HFA 90 mcg/actuation (8 g)] 2 puff IH Q6 #1 inhaler Prednisone [Deltasone] 3 tab PO DAILY #12 tablet Forms: [email or web address] (Kazakh)
[2017-01-29] MEDS ORDERED: Albuterol-Ipratrop 3 mg / 0.5 (3 ml) UD ONE (18:45)
[2017-01-29 19:46] VITALS: BP 138/85; PULSE 89; RESP 18; TEMP 98.5; O2SAT 96
--- NOTE | 2017-01-30 09:51 | RAD ---
HISTORY: dyspnea COMPARISON: Chest radiograph dated 01/24/2017 TECHNIQUE: Chest PA and lateral FINDINGS: LUNGS: No active pulmonary disease. PLEURA: No significant pleural effusion identified. No pneumothorax apparent. CARDIOVASCULAR: Cardiomediastinal silhouette stably enlarged. OSSEOUS STRUCTURES: Unchanged. VISUALIZED UPPER ABDOMEN: Normal. OTHER FINDINGS: None. IMPRESSION: No active disease.
== END 2017-01-29 19:46 | disposition home or self-care (01) ==
LOC: H.ER 18:07
DX: J45.901 Unspecified asthma with (acute) exacerbation (principal); E05.90 Thyrotoxicosis, unspecified without thyrotoxic crisis or storm; F17.210 Nicotine dependence, cigarettes, uncomplicated; F41.9 Anxiety disorder, unspecified; I11.0 Hypertensive heart disease with heart failure; I25.10 Atherosclerotic heart disease of native coronary artery without angina pectoris; I48.91 Unspecified atrial fibrillation; I50.9 Heart failure, unspecified; J44.9 Chronic obstructive pulmonary disease, unspecified; Z86.73 Personal history of transient ischemic attack (TIA), and cerebral infarction without residual deficits; Z88.0 Allergy status to penicillin

== ENCOUNTER 2017-02-05 05:37 | Inpatient (IN) | payer MEDICAID ==
[2017-02-05 05:50] VITALS: BMI 37.1
--- NOTE | 2017-02-05 06:28 | ED PDOC ---
HPI: SOB/CHF/COPD Time Seen by Provider: 02/05/17 05:50 Chief Complaint (Nursing): Palpitations Chief Complaint (Provider): Shortness of Breath History Per: Patient History/Exam Limitations: no limitations Onset/Duration Of Symptoms: Hrs (x3) Current Symptoms Are (Timing): Still Present Additional Complaint(s): 66-year-old male with a past medical history of asthma, COPD, substance abuse, CHF, and atrial fibrillation, presents to the emergency department complaining of wheezing, cough, and shortness of breath, onset at 3AM. No fever or chills. Denies using any drugs or smoking. Patient also reports associated chest tightness. He has been using his inhaler with no relief. He states he is compliant with all medications. Patient is not on oxygen. PMD: The clinic - Risk Factors PE Risk Factors: Pos: CHF Past Medical History Reviewed: Historical Data, Nursing Documentation, Vital Signs Vital Signs: Last Vital Signs Temp 97.8 F 02/05/17 16:00 Pulse 115 H 02/05/17 17:15 Resp 20 02/05/17 16:00 BP 154/98 H 02/05/17 17:15 Pulse Ox 96 02/05/17 16:00 - Medical History PMH: Anxiety, Asthma, Atrial Fibrillation, Bronchitis, CAD, Cardia Arrhythmia, CHF, COPD, CVA, Deep Vein Thrombosis, Gastritis, HTN, Hypercholesterolemia, Hyperlipidemia, Hyperthyroidism, Peripheral Edema, Pneumonia Denies: Diabetes, HIV, Chronic Kidney Disease - Surgical History Other surgeries: Bunion surgery - Family History Family History: States: [place], Diabetes, Hypertension (mother) - Social History Current smoker - smoking cessation education provided: Yes Alcohol: Social Drugs: Cocaine - Immunization History Hx Tetanus Toxoid Vaccination: No Hx Influenza Vaccination: No Hx Pneumococcal Vaccination: No - Home Medications Home Medications: Ambulatory Orders Medication Instructions Recorded Gabapentin [Neurontin] 300 mg PO BID #30 cap 11/16/16 Aspirin [Aspirin Chewable] 81 mg PO DAILY #30 chew 12/06/16 Colchicine [Mitigare] 0.6 mg PO DAILY #30 capsule 12/06/16 Apixaban [Eliquis] 5 mg PO BID #60 tablet 12/20/16 Losartan Potassium [Cozaar] 100 mg PO DAILY #30 tablet 12/20/16 [id number] CD [Cardizem CD] 240 mg PO DAILY #30 cap 12/20/16 Atorvastatin [Lipitor] 40 mg PO HS tab 01/10/17 Escitalopram [Lexapro] 10 mg PO DAILY tab 01/10/17 Digoxin [Lanoxin] 0.125 mg PO DAILY 30 Days #30 tab 01/16/17 Albuterol HFA [Ventolin HFA 90 2 puff IH Q6 #1 inhaler 01/29/17 mcg/actuation (8 g)] Prednisone [Deltasone] 3 tab PO DAILY #12 tablet 01/29/17 Aspirin [Ecotrin] 325 mg EC DAILY 02/05/17 - Allergies Allergies/Adverse Reactions: Allergies Allergy/AdvReac Type Severity Reaction Status Date / Time Penicillins Allergy RASH Verified 02/05/17 05:50 Review of Systems ROS Statement: Except As Marked, All Systems Reviewed And Found Negative Constitutional: Negative for: Fever, Chills Cardiovascular: Positive for: Chest Pain (tightness) Respiratory: Positive for: Cough, Shortness of Breath, Wheezing Gastrointestinal: Negative for: Nausea, Vomiting Physical Exam - Reviewed Nursing Documentation Reviewed: Yes Vital Signs Reviewed: Yes - Physical Exam Appears: Positive for: Uncomfortable Head Exam: Positive for: ATRAUMATIC, NORMOCEPHALIC Skin: Positive for: Normal Color, Warm, Dry Eye Exam: Positive for: EOMI, Normal appearance, PERRL Neck: Positive for: Normal, Painless ROM Cardiovascular/Chest: Positive for: Tachycardia, Irregularly Irregular Respiratory: Positive for: Decreased Breath Sounds, Rales (at the bases bilaterally), Respiratory Distress (mild), Other (Cough is present). Negative for: Wheezing Gastrointestinal/Abdominal: Positive for: Normal Exam, Soft. Negative for: Tenderness Back: Positive for: Normal Inspection. Negative for: Vertebral Tenderness Extremity: Positive for: Normal ROM, Swelling (edema at bilateral lower legs). Negative for: Deformity Neurologic/Psych: Positive for: Alert, Oriented - Laboratory Results Result Diagrams: 02/05/17 06:45 02/05/17 06:47 - ECG ECG: Positive for: Interpreted By Me, Viewed By Me ECG Rhythm: Positive for: Normal QRS, Atrial Fibrillation (with RVR). Negative for: ST/T Changes Rate: 103 O2 Sat by Pulse Oximetry: 99 (RA) Pulse Ox Interpretation: Normal Medical Decision Making Medical Decision Making: Time: 06:31 Initial Impression: Respiratory distress, could be due to COPD or asthma exacerbation, Diff include CHF exacerbation and Pneumonia Initial Plan: * EKG * Pro-BNP * BMP * Digoxin * Urine drug screen * Troponin I * CBC w/ differential * PTT * Prothrombin time * Chest X-Ray * Cardizem 20 mg IVP * Solu-medrol 125 mg IVP * Duoneb 3ml INH x3 * Peak Flow pre/post treatment * Reevaluation Scribe Attestation: Documented by Akosua Gutierrez, acting as a scribe for Mery Mazariegos MD Provider Scribe Attestation: All medical record entries made by the Scribe were at my direction and personally dictated by me. I have reviewed the chart and agree that the record accurately reflects my personal performance of the history, physical exam, medical decision making, and the department course for this patient. I have also personally directed, reviewed, and agree with the discharge instructions and disposition. Disposition - Clinical Impression Clinical Impression: Atrial fibrillation by electrocardiogram, COPD exacerbation - Patient ED Disposition Is Patient to be Admitted: Transfer of Care - Disposition Disposition: Transfer of Care Disposition Time: 07:00 Condition: FAIR Patient Signed Over To: Carlos Berumen III
[2017-02-05] MEDS ORDERED: Albuterol-Ipratrop 3 mg / 0.5 (3 ml) UD ONE (06:33)
[2017-02-05] MEDS ORDERED: Albuterol-Ipratrop 3 mg / 0.5 (3 ml) UD INH STA ×4 (06:36→08:06)
[2017-02-05 07:02] LABS: HEMOGLOBIN 13.8 g/dL (12.0-18.0); LYMPH # 1.3 K/uL (1.0-4.3); MEAN CELL VOLUME 88.4 fl (80.0-94.0); MEAN CORPUSCULAR HEMOGLOBIN 29.2 pg (27.0-31.0); MEAN PLATELET VOLUME 10.7 fl (7.2-11.7); RBC 4.72 Mil/uL (4.40-5.90); RED CELL DISTRIBUTION WIDTH 17.1 % (11.5-14.5); WHITE BLOOD COUNT 10.6 K/uL (4.8-10.8)
--- NOTE | 2017-02-05 07:10 | ED PDOC ---
- Laboratory Results Result Diagrams: 02/05/17 06:45 - ECG O2 Sat by Pulse Oximetry: 99 Medical Decision Making Medical Decision Makin:00 Patient signed out to me by Dr. Mazariegos pending labs, Chest X-Ray, re- evaluation. Impression: --66yo male w COPD/ Afib, here with SOB/cough Reassess -- Scribe Attestation: Documented by Matty Yeboah acting as a scribe for Carlos Berumen DO. Disposition - Disposition Forms: [employer] (Icelandic)
[2017-02-05 07:40] LABS: EOS % 2.7 % (0.0-4.0); LYMPH % 13.4 % (20.0-40.0); MONO % 8.4 % (0.0-10.0); NEUT % 75.1 % (50.0-75.0)
[2017-02-05 07:41] LABS: BASO % 0.4 % (0.0-2.0); NEUT # 7.6 K/uL (1.8-7.0); NRBC % 0.2 % (0.0-0.0)
[2017-02-05 07:42] LABS: EOS # 0.3 K/uL (0.0-0.7); MONO # 0.8 K/uL (0.0-0.8)
[2017-02-05 07:48] LABS: BLOOD UREA NITROGEN 21 mg/dl (9-20); CALCIUM 10.5 mg/dL (8.4-10.2); GFR AFRICAN-AMERICAN > 60; GFR NON-AFRICAN AMERICAN > 60
[2017-02-05 07:57] LABS: B-TYPE NATRIURETIC PEPTIDE 548 pg/ml (0-900)
[2017-02-05 07:59] LABS: INR 1.1 (0.9-1.2); PARTIAL THROMBOPLASTIN TIME 29.7 Seconds (25.6-37.1); PROTHROMBIN TIME 12.5 Seconds (9.8-13.1)
[2017-02-05 08:37] LABS: BARBITURATES, UR NEGATIVE (NEGATIVE); BENZODIAZEPINES, UR NEGATIVE (NEGATIVE); OPIATES, UR NEGATIVE (NEGATIVE); PHENCYCLIDINE, UR NEGATIVE (NEGATIVE)
[2017-02-05] MEDS ORDERED: Albuterol-Ipratrop 3 mg / 0.5 (3 ml) UD INH PRN (11:53)
[2017-02-05] MEDS: Digoxin 125 mcg (0.125 mg) Tab PO SCH (12:11)
[2017-02-05] MEDS: diltiaZEM 240 mg/24 Hours CD Cap PO SCH (12:15)
--- NOTE | 2017-02-05 12:52 | CARD ---
APPROVED REPORT EKG Measurement Heart [id number] <Conclusion> Atrial fibrillation with rapid ventricular response with premature ventricular or aberrantly conducted complexes Abnormal ECG
--- NOTE | 2017-02-05 13:05 | RAD ---
PROCEDURE: CHEST RADIOGRAPH, 1 VIEW HISTORY: dyspnea COMPARISON: 11/29/2016 FINDINGS: LUNGS: Clear. PLEURA: No pneumothorax or pleural fluid seen. CARDIOVASCULAR: Normal. OSSEOUS STRUCTURES: No significant abnormalities. VISUALIZED UPPER ABDOMEN: Normal. OTHER FINDINGS: None. IMPRESSION: No active disease.
[2017-02-05] MEDS: Albuterol HFA 90 mcg/actuation (8 g) IH SCH ×2 (16:44→21:10)
--- NOTE | 2017-02-05 18:37 | CP.PCM.HP ---
History of Present Illness - History of Present Illness History of Present Illness: 66 YO M w/ PMH of COPD, cocaine abuse, COPD, CHF, atrial fibrillation presents to the ER with cough and SOB for the past couple of days which has been progressively worsening. 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 Cough is productive in nature, with clear colored sputum and has been increasing. - He has been compliant with all his medication. Currently denies any chest pain, has some chest tightness, but does not radiate. Is unable to quantify the chest tightness. Past medical hx: CHF, Afib, HTN, CVA, COPD, Hyperlipidemia, cocaine abuse, left adrenal mass. Allergies: Penicillin: Rash Medications: Confirmed Family hx: Mother: DMII. Father: alcoholism. Past Surgery hx: B/L bunionectomy in 1994 Social History: homeless, lives in a half-way at [place] Smoked 2 PPD x 40 yrs, recently cutdown to 1-2 cigarettes. Drinks 1-2 beer/day . Continues using Cocaine ED course: -Albuterol/ Ipratropium x3 - Solumedrol 125 - Asprin 81mg x1 - EKG - Urine drug screen: Cocaine positve - Chest X ray - CMP PMD : Dr. Solis ([facility]) Present on Admission - Present on Admission Any Indicators Present on Admission: No Past Patient History - Infectious Disease Hx of Infectious Diseases: None - Tetanus Immunizations Tetanus Immunization: Unknown - Past Medical History & Family History Past Medical History?: Yes - Past Social History Smoking Status: Current Some Days Smoker - CARDIAC Hx Cardiac Disorders: Yes Hx Atrial Fibrillation: Yes Hx Cardia Arrhythmia: Yes Hx Congestive Heart Failure: Yes Hx Hypercholesterolemia: Yes Hx Hypertension: Yes Hx Peripheral Edema: Yes - PULMONARY Hx Respiratory Disorders: Yes Hx Asthma: Yes Hx Bronchitis: Yes Hx Chronic Obstructive Pulmonary Disease (COPD): Yes Hx Pneumonia: Yes Hx Pulmonary Embolism: Yes - NEUROLOGICAL Hx Neurological Disorder: Yes HX Cerebrovascular Accident: Yes - HEENT Hx HEENT Problems: No - RENAL Hx Chronic Kidney Disease: No - ENDOCRINE/METABOLIC Hx Hyperthyroidism: Yes - HEMATOLOGICAL/ONCOLOGICAL Hx Human Immunodeficiency Virus (HIV): No - INTEGUMENTARY Hx Dermatological Problems: No - MUSCULOSKELETAL/RHEUMATOLOGICAL Hx Musculoskeletal Disorders: No Hx Falls: No - GASTROINTESTINAL Hx Gastritis: Yes - GENITOURINARY/GYNECOLOGICAL Hx Genitourinary Disorders: No - PSYCHIATRIC Hx Anxiety: Yes Hx Substance Use: Yes (coccaine) - SURGICAL HISTORY Hx Orthopedic Surgery: Yes Other/Comment: Hx BILATERAL BUNIONECTOMY 1996 - ANESTHESIA Hx Anesthesia: Yes Hx Anesthesia Reactions: No Hx Malignant Hyperthermia: No Meds Allergies/Adverse Reactions: Allergies Allergy/AdvReac Type Severity Reaction Status Date / Time Penicillins Allergy RASH Verified 02/05/17 05:50 Physical Exam - Constitutional Appears: No Acute Distress - Head Exam Head Exam: NORMAL INSPECTION - Eye Exam Eye Exam: Normal appearance - Respiratory Exam Respiratory Exam: Clear to Auscultation Bilateral, NORMAL BREATHING PATTERN. absent: Rhonchi, Wheezes - Cardiovascular Exam Cardiovascular Exam: REGULAR RHYTHM, +S1, +S2 - GI/Abdominal Exam GI & Abdominal Exam: Normal Bowel Sounds, Soft. absent: Tenderness - Extremities Exam Extremities exam: Positive for: normal inspection. Negative for: calf tenderness Results - Vital Signs Recent Vital Signs: Last Vital Signs Temp 97.8 F 02/05/17 16:00 Pulse 115 H 02/05/17 17:15 Resp 20 02/05/17 16:00 BP 154/98 H 02/05/17 17:15 Pulse Ox 96 02/05/17 16:00 - Labs Result Diagrams: 02/05/17 06:45 02/05/17 06:47 Labs: Laboratory Results - last 24 hr 02/05/17 02/05/17 02/05/17 06:45 06:45 06:45 WBC 10.6 RBC 4.72 Hgb 13.8 Hct 41.7 MCV 88.4 MCH 29.2 MCHC 33.0 RDW 17.1 H Plt Count 166 MPV 10.7 Neut % (Auto) 75.1 H Lymph % (Auto) 13.4 L [place] % (Auto) 8.4 Eos % (Auto) 2.7 Baso % (Auto) 0.4 Neut # 7.6 H Lymph # 1.3 [place] # 0.8 Eos # 0.3 Baso # 0.0 PT 12.5 INR 1.1 APTT 29.7 Sodium Potassium Chloride Carbon Dioxide Anion Gap BUN Creatinine Est GFR ( Amer) Est GFR (Non-Af Amer) Random Glucose Calcium Troponin I NT-Pro-B Natriuret Pep Digoxin 1.2 Urine Opiates Screen Urine Methadone Screen Ur Barbiturates Screen Ur Phencyclidine Scrn Ur Amphetamines Screen U Benzodiazepines Scrn U Oth Cocaine Metabols U Cannabinoids Screen 02/05/17 02/05/17 06:47 08:00 WBC RBC Hgb Hct MCV MCH MCHC RDW Plt Count MPV Neut % (Auto) Lymph % (Auto) [place] % (Auto) Eos % (Auto) Baso % (Auto) Neut # Lymph # [place] # Eos # Baso # PT INR APTT Sodium 140 Potassium 4.9 Chloride 108 H Carbon Dioxide 25 Anion Gap 12 BUN 21 H Creatinine 1.1 Est GFR ( Amer) > 60 Est GFR (Non-Af Amer) > 60 Random Glucose 86 Calcium 10.5 H Troponin I 0.0360 NT-Pro-B Natriuret Pep 548 Digoxin Urine Opiates Screen Negative Urine Methadone Screen Negative Ur Barbiturates Screen Negative Ur Phencyclidine Scrn Negative Ur Amphetamines Screen Negative U Benzodiazepines Scrn Negative U Oth Cocaine Metabols Positive H U Cannabinoids Screen Negative Assessment & Plan - Assessment and Plan (Free Text) Assessment: 1) COPD exacerbation - Duoneb Q6 - Azithromycin 500mg x 3 days - Prednisone 40 mg PO 2) A Fib - C/W Cardizam 240 and digoxin .125 daily - C/W eliquis 5mg PO BID -C/W monitoring on tele - Troponin x 3 negative 3) HTN - C/W home meds 4) DVT prophylaxis - Eliquis and ambulation
[2017-02-06] MEDS: Albuterol-Ipratrop 3 mg / 0.5 (3 ml) UD INH SCH ×3 (01:01→13:16)
[2017-02-06 01:13] VITALS: RESP 18
[2017-02-06] MEDS: Albuterol HFA 90 mcg/actuation (8 g) IH SCH (06:11)
[2017-02-06 08:03] LABS: HEMOGLOBIN 13.8 g/dL (12.0-18.0); MEAN CELL VOLUME 87.6 fl (80.0-94.0); MEAN CORPUSCULAR HEMOGLOBIN 28.8 pg (27.0-31.0); MEAN CORPUSCULAR HGB CONC 32.9 g/dL (33.0-37.0); RBC 4.78 Mil/uL (4.40-5.90)
[2017-02-06 08:27] LABS: ALB/GLOB RATIO 1.1 (1.0-2.1); ALBUMIN 3.6 g/dL (3.5-5.0); ALT/SGPT 38 U/L (21-72); AST/SGOT 20 U/L (17-59); BLOOD UREA NITROGEN 24 mg/dl (9-20); CALCIUM 10.7 mg/dL (8.4-10.2); GFR AFRICAN-AMERICAN > 60; GFR NON-AFRICAN AMERICAN > 60
[2017-02-06] MEDS: diltiaZEM 240 mg/24 Hours CD Cap PO SCH (08:30)
[2017-02-06] MEDS: Digoxin 125 mcg (0.125 mg) Tab PO SCH (08:33)
[2017-02-06 08:34] VITALS: PULSE 62
[2017-02-06] MEDS ORDERED: COLCHICINE 0.6 MG CAPSULE PO SCH (09:00)
--- NOTE | 2017-02-06 12:09 | CP.PCM.DIS ---
Provider - Provider Date of Admission: 02/05/17 08:16 Attending physician: Maricruz Solis MD Time Spent in preparation of Discharge (in minutes): 30 Hospital Course - Lab Results Lab Results: Most Recent Lab Values WBC 17.0 K/uL (4.8-10.8) H D 02/06/17 06:30 RBC 4.78 Mil/uL (4.40-5.90) 02/06/17 06:30 Hgb 13.8 g/dL (12.0-18.0) 02/06/17 06:30 Hct 41.9 % (35.0-51.0) 02/06/17 06:30 MCV 87.6 fl (80.0-94.0) 02/06/17 06:30 MCH 28.8 pg (27.0-31.0) 02/06/17 06:30 MCHC 32.9 g/dL (33.0-37.0) L 02/06/17 06:30 RDW 17.0 % (11.5-14.5) H 02/06/17 06:30 Plt Count 176 K/uL (130-400) 02/06/17 06:30 MPV 10.7 fl (7.2-11.7) 02/05/17 06:45 Neut % (Auto) 75.1 % (50.0-75.0) H 02/05/17 06:45 Lymph % (Auto) 13.4 % (20.0-40.0) L 02/05/17 06:45 [place] % (Auto) 8.4 % (0.0-10.0) 02/05/17 06:45 Eos % (Auto) 2.7 % (0.0-4.0) 02/05/17 06:45 Baso % (Auto) 0.4 % (0.0-2.0) 02/05/17 06:45 Neut # 7.6 K/uL (1.8-7.0) H 02/05/17 06:45 Lymph # 1.3 K/uL (1.0-4.3) 02/05/17 06:45 [place] # 0.8 K/uL (0.0-0.8) 02/05/17 06:45 Eos # 0.3 K/uL (0.0-0.7) 02/05/17 06:45 Baso # 0.0 K/uL (0.0-0.2) 02/05/17 06:45 PT 12.5 Seconds (9.8-13.1) 02/05/17 06:45 INR 1.1 (0.9-1.2) 02/05/17 06:45 APTT 29.7 Seconds (25.6-37.1) 02/05/17 06:45 Sodium 139 mmol/l (132-148) 02/06/17 06:30 Potassium 4.6 MMOL/L (3.6-5.0) 02/06/17 06:30 Chloride 107 mmol/L (98-107) 02/06/17 06:30 Carbon Dioxide 26 mmol/L (22-30) 02/06/17 06:30 Anion Gap 11 (10-20) 02/06/17 06:30 BUN 24 mg/dl (9-20) H 02/06/17 06:30 Creatinine 1.1 mg/dl (0.8-1.5) 02/06/17 06:30 Est GFR ( Amer) > 60 02/06/17 06:30 Est GFR (Non-Af Amer) > 60 02/06/17 06:30 Random Glucose 127 mg/dL (75-110) H 02/06/17 06:30 Calcium 10.7 mg/dL (8.4-10.2) H 02/06/17 06:30 Total Bilirubin 0.7 mg/dl (0.2-1.3) 02/06/17 06:30 AST 20 U/L (17-59) 02/06/17 06:30 ALT 38 U/L (21-72) 02/06/17 06:30 Alkaline Phosphatase 101 U/L (38-126) 02/06/17 06:30 Troponin I 0.0360 ng/mL (0.00-0.120) 02/05/17 06:47 NT-Pro-B Natriuret Pep 548 pg/ml (0-900) 02/05/17 06:47 Total Protein 6.9 G/DL (6.3-8.2) 02/06/17 06:30 Albumin 3.6 g/dL (3.5-5.0) 02/06/17 06:30 Globulin 3.3 gm/dL (2.2-3.9) 02/06/17 06:30 Albumin/Globulin Ratio 1.1 (1.0-2.1) 02/06/17 06:30 Digoxin 1.2 ng/mL (0.8-2.0) 02/05/17 06:45 Urine Opiates Screen Negative (NEGATIVE) 02/05/17 08:00 Urine Methadone Screen Negative (NEGATIVE) 02/05/17 08:00 Ur Barbiturates Screen Negative (NEGATIVE) 02/05/17 08:00 Ur Phencyclidine Scrn Negative (NEGATIVE) 02/05/17 08:00 Ur Amphetamines Screen Negative (NEGATIVE) 02/05/17 08:00 U Benzodiazepines Scrn Negative (NEGATIVE) 02/05/17 08:00 U Oth Cocaine Metabols Positive (NEGATIVE) H 02/05/17 08:00 U Cannabinoids Screen Negative (NEGATIVE) 02/05/17 08:00 - Hospital Course Hospital Course: 66 y/oM with COPD, hx of cocaine abuse, afib admitted due to SOB, possi. COPD exacerbation. Stable to DC home today, SOB resolved after duonebs, steroids and abx during this admission. See reconciled medication list below, scripts provided for Azithro and prednisone, see below. take all medications as directed follow up with PMD in 1 week ER precautions given, urged to stop using cocaine due to cardiac history Discharge Exam - Head Exam Head Exam: ATRAUMATIC, NORMOCEPHALIC - Eye Exam Eye Exam: EOMI - ENT Exam ENT Exam: Mucous Membranes Moist - Neck Exam Neck exam: Full Rom - Respiratory Exam Respiratory Exam: Wheezes. absent: Accessory Muscle Use, Chest Wall Tenderness , Rales, Rhonchi, Respiratory Distress, Stridor Additional comments: some scattered wheezes - Cardiovascular Exam Cardiovascular Exam: +S1, +S2 - GI/Abdominal Exam GI & Abdominal Exam: Normal Bowel Sounds, Soft. absent: Tenderness Additional comments: obese - Extremities Exam Extremities exam: full ROM, normal inspection, pedal pulses present - Neurological Exam Neurological exam: Alert, Oriented x3 - Psychiatric Exam Psychiatric exam: Normal Affect, Normal Mood - Skin Skin Exam: Dry, Normal Color, Warm Discharge Plan - Discharge Medications Prescriptions: Azithromycin [Zithromax] 250 mg PO DAILY #5 tab predniSONE [predniSONE Tab] 40 mg PO DAILY 5 Days tab - Follow Up Plan Condition: STABLE Disposition: HOME/ ROUTINE Instructions: Cocaine Abuse (DC) Additional Instructions: take all medications as directed follow up with PMD in 1 week ER precautions given urged to stop using cocaine due to cardiac history
[2017-02-06 13:03] VITALS: BP 143/88; PULSE 94; TEMP 97.8; O2SAT 95
--- NOTE | 2017-02-08 07:49 | PQF GENQUE ---
Pt with chronic afib present on admission Reynaldo Solis MD This form is a permanent part of the medical record 02/08/17 Dr. Solis, Please clarify the Type of Atrial Fibrillation if known. >> Chronic >> Paroxysmal >> Permanent >> Persistent >> Other (please specify type) >> Clinically unable to determine >> Unknown Documentation of a history of Atrial Fibrillation. HR 122 in the ER and Cardizem IV initiated. EKG Atrial Fibrillation with RVR . Medication includes Eliquis and Cardizem CD. Clarification of your documentation is requested to better reflect the severity of illness and intensity of treatment of your patient. Indicators present [] Specify: [] [] Specify: [] [] Specify: [] [] Specify: [] Location in the medical record that reflects the above clinical findings: [] Treatment Provided: [] PHYSICIAN'S RESPONSE Pt with chronic Afib and rate increased after use of cocaine - causing symptoms of chest discomfort in addition to dyspnea Based on your medical judgment of the clinical indicators outlined above please clarify the following: X[] Practitioner response [] If unable to determine, please check the box, sign and date. Present On Admission (POA) Indicator: [X] Present at the time of admission [] Not present at the time of admission [] Clinically Undetermined In responding to this query, please exercise your independent professional judgment. The fact that a question is asked does not imply that any particular answer is desired or expected. Thank you for your clarification on this documentation. If you have any questions please call:extension [phone] * Thank you, Steffanie Preston RN [facility]
--- NOTE | 2017-02-08 07:58 | PQF GENQUE ---
This form is a permanent part of the medical record 02/08/2017 Dr. Solis, Please specify the TYPE and ACUITY of the history of CHF if known. Patient presents with productive cough and SOB. Inhaler did not provide any relief. History of CHF documented and the patient is on Cozaar. ProBNP 548. CXR No active disease. Echocardiogram from 05/11/2016: EF 45%, moderate MR, mild TR. Clarification of your documentation is requested to better reflect the severity of illness and intensity of treatment of your patient. Indicators present [] Specify: [] [] Specify: [] [] Specify: [] [] Specify: [] Location in the medical record that reflects the above clinical findings: [] Treatment Provided: [] PHYSICIAN'S RESPONSE Patient not in heart failure on admission. Based on your medical judgment of the clinical indicators outlined above please clarify the following: [] Practitioner response [] If unable to determine, please check the box, sign and date. Present On Admission (POA) Indicator: [] Present at the time of admission [] Not present at the time of admission [] Clinically Undetermined In responding to this query, please exercise your independent professional judgment. The fact that a question is asked does not imply that any particular answer is desired or expected. Thank you for your clarification on this documentation. If you have any questions please call:ext [phone] * Thank you, Steffanie Preston RN CDMP [facility]
--- NOTE | 2017-02-08 08:05 | PQF GENQUE ---
This form is a permanent part of the medical record 02/08/17 Dr. Solis, Please clarify the TYPE and ACUITY of Asthma if known. 1. Please clarify type of asthma: Childhood Cough variant Exercise induced Late onset Mild intermittent Mild persistent Moderate persistent Severe persistent With bronchitis(please clarify acuity of bronchitis) With chronic lung disease (please document specific chronic lung disease) Other (please specify) Clinically unable to determine Unknown 2. Please clarify acuity of asthma: Uncomplicated With exacerbation(acute) With status asthmaticus Other (please specify) Clinically unable to determine Unknown Admitted with SOB , wheezing and productive cough. ER and the H&P under [facility] template Asthma: Yes. CXR no active disease. Treated with Nebulizers and Solumedrol in the ER. On Ventolin HFA at home. Clarification of your documentation is requested to better reflect the severity of illness and intensity of treatment of your patient. 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 Based on your medical judgment of the clinical indicators outlined above please clarify the following: [] Practitioner response [] If unable to determine, please check the box, sign and date. Present On Admission (POA) Indicator: [] Present at the time of admission [] Not present at the time of admission [] Clinically Undetermined In responding to this query, please exercise your independent professional judgment. The fact that a question is asked does not imply that any particular answer is desired or expected. Thank you for your clarification on this documentation. If you have any questions please call:ext [phone] * Thank you, Steffanie Preston RN CD[facility]
== END 2017-02-06 13:40 | disposition home or self-care (01) | DRG 88 ==
LOC: H.ER 05:37 → H.ERHOLD 08:16 → H.TEL 10:23
PROVIDERS: ADMIT Family Medicine; ATTEND Family Medicine
PROC: 3E0F7GC Introduction of Other Therapeutic Substance into Respiratory Tract, Via Natural or Artificial Opening (ICD-10-PCS; principal; 2017-02-06)
DX: J44.1 Chronic obstructive pulmonary disease with (acute) exacerbation (principal); I11.0 Hypertensive heart disease with heart failure; I50.9 Heart failure, unspecified; E05.90 Thyrotoxicosis, unspecified without thyrotoxic crisis or storm; F14.10 Cocaine abuse, uncomplicated; I48.2 Chronic atrial fibrillation; E78.00 Pure hypercholesterolemia, unspecified; E78.5 Hyperlipidemia, unspecified; F17.200 Nicotine dependence, unspecified, uncomplicated; I25.10 Atherosclerotic heart disease of native coronary artery without angina pectoris; Z79.01 Long term (current) use of anticoagulants; Z79.82 Long term (current) use of aspirin; Z79.899 Other long term (current) drug therapy; Z81.1 Family history of alcohol abuse and dependence; Z82.49 Family history of ischemic heart disease and other diseases of the circulatory system; Z83.3 Family history of diabetes mellitus; Z86.711 Personal history of pulmonary embolism; Z86.73 Personal history of transient ischemic attack (TIA), and cerebral infarction without residual deficits; Z87.01 Personal history of pneumonia (recurrent); F41.9 Anxiety disorder, unspecified; K29.70 Gastritis, unspecified, without bleeding; Z59.0 Homelessness; R06.03 Acute respiratory distress

== ENCOUNTER 2017-02-28 17:15 | Emergency (ER) | payer MEDICAID ==
[2017-02-28 17:15] VITALS: PULSE 62; BMI 37.1
[2017-02-28 17:36] VITALS: BP 144/83; PULSE 83; RESP 16; TEMP 98.4; O2SAT 99
--- NOTE | 2017-02-28 18:33 | ED PDOC ---
Lower Extremity Pain/Injury Time Seen by Provider: 02/28/17 18:20 Chief Complaint (Nursing): Lower Extremity Problem/Injury Chief Complaint (Provider): Lower extremity problem History Per: Patient History/Exam Limitations: no limitations Onset/Duration Of Symptoms: Days (x4) Current Symptoms Are (Timing): Still Present Additional Complaint(s): Ignacio Soni is a 66 year old male, with a past medical history of A-fib and surgical history of b/l bunionectomy, who present to the emergency department complaining of bilateral leg pain and redness on right leg onset for x4 days. Patient reports he has an appointment with podiatry tomorrow. He is currently taking Eliquis. Patient denies any fever or chills. No further medical complaints. PMD: None provided. Past Medical History Reviewed: Historical Data, Nursing Documentation, Vital Signs Vital Signs: Last Vital Signs Temp 98.4 F 02/28/17 17:29 Pulse 83 02/28/17 17:29 Resp 16 02/28/17 17:29 BP 144/83 02/28/17 17:29 Pulse Ox 99 02/28/17 17:29 - Medical History PMH: Anxiety, Asthma, Atrial Fibrillation, Bronchitis, CAD, Cardia Arrhythmia, CHF, COPD, CVA, Deep Vein Thrombosis, Gastritis, HTN, Hypercholesterolemia, Hyperlipidemia, Hyperthyroidism, Peripheral Edema, Pneumonia, Pulmonary Embolism Denies: Diabetes, HIV, Chronic Kidney Disease - Surgical History Surgical History: No Surg Hx - Family History Family History: States: [place], Diabetes, Hypertension (mother) - Social History Current smoker - smoking cessation education provided: Yes (Some days) Alcohol: None - Immunization History Hx Tetanus Toxoid Vaccination: No Hx Influenza Vaccination: No Hx Pneumococcal Vaccination: No - Home Medications Home Medications: Ambulatory Orders Medication Instructions Recorded Gabapentin [Neurontin] 300 mg PO BID #30 cap 11/16/16 Aspirin [Aspirin Chewable] 81 mg PO DAILY #30 chew 12/06/16 Colchicine [Mitigare] 0.6 mg PO DAILY #30 capsule 12/06/16 Apixaban [Eliquis] 5 mg PO BID #60 tablet 12/20/16 Losartan Potassium [Cozaar] 100 mg PO DAILY #30 tablet 12/20/16 [id number] CD [Cardizem CD] 240 mg PO DAILY #30 cap 12/20/16 Atorvastatin [Lipitor] 40 mg PO HS tab 01/10/17 Escitalopram [Lexapro] 10 mg PO DAILY tab 01/10/17 Digoxin [Lanoxin] 0.125 mg PO DAILY 30 Days #30 tab 01/16/17 Albuterol HFA [Ventolin HFA 90 2 puff IH Q6 #1 inhaler 01/29/17 mcg/actuation (8 g)] Prednisone [Deltasone] 3 tab PO DAILY #12 tablet 01/29/17 Aspirin [Ecotrin] 325 mg EC DAILY 02/05/17 Azithromycin [Zithromax] 250 mg PO DAILY #5 tab 02/06/17 predniSONE [predniSONE Tab] 40 mg PO DAILY 5 Days tab 02/06/17 - Allergies Allergies/Adverse Reactions: Allergies Allergy/AdvReac Type Severity Reaction Status Date / Time Penicillins Allergy RASH Verified 02/05/17 05:50 Review of Systems ROS Statement: Except As Marked, All Systems Reviewed And Found Negative Constitutional: Negative for: Fever, Chills Musculoskeletal: Positive for: Leg Pain (b/l leg pain with redness on right leg. ) Physical Exam - Reviewed Nursing Documentation Reviewed: Yes Vital Signs Reviewed: Yes - Physical Exam Appears: Positive for: Well, Non-toxic, No Acute Distress Head Exam: Positive for: ATRAUMATIC, NORMAL INSPECTION, NORMOCEPHALIC Skin: Positive for: Normal Color, Warm, Dry Eye Exam: Positive for: Normal appearance Neck: Positive for: Painless ROM Cardiovascular/Chest: Positive for: Regular Rate, Rhythm. Negative for: Murmur Respiratory: Positive for: Normal Breath Sounds. Negative for: Respiratory Distress Extremity: Positive for: Normal ROM, Other (mild warmth on dorsum of right foot to anterior region of leg. ). Negative for: Deformity Neurologic/Psych: Positive for: Alert, Oriented - Laboratory Results Result Diagrams: 02/28/17 18:34 - ECG O2 Sat by Pulse Oximetry: 99 (RA) Pulse Ox Interpretation: Normal - Progress ED Course And Treament: XRY TIB-FIB: NEG FOR FX DUPLEX BILATERAL: NO DVT SEEN BY PODIATRY. URIC ACID NOTED WNL. PATIENT TO F/U TOMORROW WITH PODIATRY. THEY DO NOT WANT TO START MEDICATIONS AT THIS TIME. Medical Decision Making Medical Decision Making: Initial Impression: Initial Plan: --CBC w/ differential --Foot right 3 views routine [RAD] --Tibia Fibula Right [RAD] --Duplex lower extrm vein bilat [US] --reevaluation ~ Scribe Attestation: Documented by Jose Guadalupe Kuhn, acting as a scribe for Porfirio Noel PA-C. Provider Scribe Attestation: All medical record entries made by the Scribe were at my direction and personally dictated by me. I have reviewed the chart and agree that the record accurately reflects my personal performance of the history, physical exam, medical decision making, and the department course for this patient. I have also personally directed, reviewed, and agree with the discharge instructions and disposition. Disposition - Clinical Impression Clinical Impression: Leg pain - Patient ED Disposition Is Patient to be Admitted: No - Disposition Disposition: Routine/Home Disposition Time: 20:31 Condition: FAIR Additional Instructions: FOLLOW UP TOMORROW WITH PODIATRY CLINIC SCHEDULED Instructions: Leg Pain (ED) Forms: [employer] ([employer])
[2017-02-28 19:02] LABS: BASO # 0.1 K/uL (0.0-0.2); BASO % 0.8 % (0.0-2.0); EOS # 0.4 K/uL (0.0-0.7); EOS % 4.5 % (0.0-4.0); HEMOGLOBIN 14.7 g/dL (12.0-18.0); LYMPH # 1.5 K/uL (1.0-4.3); LYMPH % 16.1 % (20.0-40.0); MEAN CORPUSCULAR HEMOGLOBIN 28.8 pg (27.0-31.0); MEAN PLATELET VOLUME 10.6 fl (7.2-11.7); MONO % 10.2 % (0.0-10.0); NEUT # 6.4 K/uL (1.8-7.0); NEUT % 68.4 % (50.0-75.0); NRBC % 0.1 % (0.0-0.0); RBC 5.09 Mil/uL (4.40-5.90); RED CELL DISTRIBUTION WIDTH 17.2 % (11.5-14.5); WHITE BLOOD COUNT 9.3 K/uL (4.8-10.8)
--- NOTE | 2017-02-28 19:08 | CP.PCM.CON ---
History of Present Illness - History of Present Illness History of Present Illness: 66 year old male patient with PMHx of Anxiety, Asthma, Atrial Fibrillation, Bronchitis, CAD, Cardia Arrhythmia, CHF, COPD, CVA, Deep Vein Thrombosis, Gastritis, HTN, Hypercholesterolemia, Hyperlipidemia, Hyperthyroidism, Peripheral Edema, Pneumonia, Pulmonary Embolism was seen and evaluated in triage for unilateral leg and foot swelling accompanied with erythema and pain. Patient states that the pain started on [place] and has been progressively getting worst. Patient reports that the pain is present at his calf and at the big toe; big toe pain > calf pain. Patient denies of taking any medications to relieve the pain aside from his daily medications. Patient denies of having any recent F/N/V/C/SOB/Coughing/CP/headache. Denies of having any other pedal complains at this time. PMHx: Anxiety, Asthma, Atrial Fibrillation, Bronchitis, CAD, Cardia Arrhythmia , CHF, COPD, CVA, Deep Vein Thrombosis, Gastritis, HTN, Hypercholesterolemia, Hyperlipidemia, Hyperthyroidism, Peripheral Edema, Pneumonia, Pulmonary Embolism PSHx: Bunionectomy b/l in 1994 Allergies: Penicillins SHx: Agrees to smoking 2 cig a day, denies of EtOH or illicit drug usage, admits of EtOH and drug abuse previously Review of Systems - Constitutional Constitutional: As Per HPI Past Patient History - Infectious Disease Hx of Infectious Diseases: None - Tetanus Immunizations Tetanus Immunization: Unknown - Past Medical History & Family History Past Medical History?: Yes - Past Social History Alcohol: None - CARDIAC Hx Atrial Fibrillation: Yes Hx Cardia Arrhythmia: Yes Hx Congestive Heart Failure: Yes Hx Hypercholesterolemia: Yes Hx Hypertension: Yes Hx Peripheral Edema: Yes - PULMONARY Hx Asthma: Yes Hx Bronchitis: Yes Hx Chronic Obstructive Pulmonary Disease (COPD): Yes Hx Pneumonia: Yes Hx Pulmonary Embolism: Yes - NEUROLOGICAL Hx Neurological Disorder: Yes HX Cerebrovascular Accident: Yes - HEENT Hx HEENT Problems: No - RENAL Hx Chronic Kidney Disease: No - ENDOCRINE/METABOLIC Hx Hyperthyroidism: Yes - HEMATOLOGICAL/ONCOLOGICAL Hx Human Immunodeficiency Virus (HIV): No - INTEGUMENTARY Hx Dermatological Problems: No - MUSCULOSKELETAL/RHEUMATOLOGICAL Hx Musculoskeletal Disorders: No Hx Falls: No - GASTROINTESTINAL Hx Gastritis: Yes - GENITOURINARY/GYNECOLOGICAL Hx Genitourinary Disorders: No - PSYCHIATRIC Hx Anxiety: Yes - SURGICAL HISTORY Hx Orthopedic Surgery: Yes Other/Comment: Hx BILATERAL BUNIONECTOMY 1996 - ANESTHESIA Hx Anesthesia: Yes Hx Anesthesia Reactions: No Hx Malignant Hyperthermia: No Meds Allergies/Adverse Reactions: Allergies Allergy/AdvReac Type Severity Reaction Status Date / Time Penicillins Allergy RASH Verified 02/05/17 05:50 Physical Exam - Constitutional Appears: Well, Non-toxic, No Acute Distress - Head Exam Head Exam: ATRAUMATIC - Extremities Exam Extremities exam: Positive for: calf tenderness Additional comments: Right LE focused exam VASC: DP/PT pulses are palpable 2/4, Cap refill time: < 3 sec to all digits, Temp gradient: warm to warm from proximal to distal, +2 pitting edema noted on the dorsum of the foot with circumferential tightness at the level of calf during palpation DERM: Increase in erythema which extends from foot up to tibial tuberosity, no open lesions, no interdigital maceration, no clinical suspicion of active infection NEURO: Protective sensation grossly intact ORTHO: Pain on palpation of the calf on the R (Pratz +), Pain on the calf during dorsiflexion of the foot (Warren's +), no palpable cord noted, pain on palpation on the medial aspect of the right hallux, pain during AROM and PROM of the hallux at MTPJ, unable to obtain MMT due to patient guarding during exam - Neurological Exam Neurological exam: Alert, Oriented x3 - Psychiatric Exam Psychiatric exam: Normal Affect, Normal Mood - Skin Skin Exam: Erythema, Intact, Warm Results - Vital Signs Recent Vital Signs: Last Vital Signs Temp 98.4 F 02/28/17 17:29 Pulse 83 02/28/17 17:29 Resp 16 02/28/17 17:29 BP 144/83 02/28/17 17:29 Pulse Ox 99 02/28/17 18:49 - Labs Result Diagrams: 02/28/17 18:34 Assessment & Plan - Assessment and Plan (Free Text) Assessment: 66 year old male patient with PMHx of Anxiety, Asthma, Atrial Fibrillation, Bronchitis, CAD, Cardia Arrhythmia, CHF, COPD, CVA, Deep Vein Thrombosis, Gastritis, HTN, Hypercholesterolemia, Hyperlipidemia, Hyperthyroidism, Peripheral Edema, Pneumonia, Pulmonary Embolism evaluated in ED for possible DVT vs. gout Plan: Patient S&E in ED Discussed in details with attending Dr. Henderson Labs, vitals and charts reviewed - afebrile, no tachycardia, O2 sat: 99% at RA - WBC @ 9.3 - no leukocytosis - Uric acid level: 7.3 X-rays of the R foot and R lower extremity ordered - no acute dislocation, fractures or soft tissue emphysema noted. Increase density in soft tissue consistent with soft tissue edema Venous duplex of the R LE ordered - no evidence of DVT LE edema could be secondary to dependent position and patient has history of CHF Patient is stable at this point Patient to follow up with his training technician as appointed Patient to follow up in the podiatry clinic Thank you for the podiatry consult and allowing to take part in patient care. - Date & Time Date: 02/28/17 Time: 19:16
--- NOTE | 2017-02-28 21:24 | US ---
EXAM: US Duplex Bilateral Lower Extremity Veins EXAM DATE/TIME: 02/28/2017 6:47 PM CLINICAL HISTORY: 66 years old, male; Pain; Foot; Bilateral; Additional info: R/O dvt TECHNIQUE: Real-time ultrasound scan of the veins of the bilateral lower extremities with color Doppler flow, spectral waveform analysis and compression. COMPARISON: There are no prior studies for comparison. FINDINGS: Right deep veins: Common femoral, superficial femoral, popliteal and posterior tibial veins were evaluated. All veins examined are compressible. There are no intraluminal filling defects. There is expected blood flow on Doppler imaging. There is change in waveform with augmentation. Left deep veins:Common femoral, superficial femoral, popliteal and posterior tibial veins were evaluated. All veins examined are compressible. There are no intraluminal filling defects. There is expected blood flow on Doppler imaging. There is change in waveform with augmentation. Soft tissues: There is right calf edema IMPRESSION: No deep venous thrombosis in the visualized vascular segments of the lower extremities
--- NOTE | 2017-03-01 11:42 | RAD ---
PROCEDURE: Radiographs of the right tibia and fibula. HISTORY: RIGHT LEG PAIN COMPARISON: None available. TECHNIQUE: Frontal and lateral views obtained. FINDINGS: BONES: No fracture or destructive lesion. JOINT SPACES: Unremarkable. OTHER FINDINGS: None. IMPRESSION: Unremarkable radiographs of the right tibia and fibula.
--- NOTE | 2017-03-01 11:44 | RAD ---
PROCEDURE: Right Foot Radiographs. HISTORY: FOOT PAIN COMPARISON: None. FINDINGS: BONES: There is no acute fracture appreciated or destructive bony lesion. However, a mild hallux valgus deformity is appreciated. Further, postoperative changes seen at the 1st metatarsal bone suspicious for prior bunionectomy. Clinically correlate further. Advanced degenerative changes are manifest by joint space narrowing and cortical sclerosis throughout all the interphalangeal joints as well as the 1st metatarsophalangeal joint which also exhibits osteophyte development. Remaining joints appear unremarkable. JOINTS: As above SOFT TISSUES: Prominence dorsal soft tissue edema may indicate cellulitis. No retained radiodense foreign body or emphysema soft tissue changes are seen related here. Digits appear somewhat spared from the edema. OTHER FINDINGS: None. IMPRESSION: No acute fracture dislocation. Postoperative changes are suggested on a chronic basis status post probable bunionectomy at the right 1st metatarsal bone. Mild hallux valgus deformity. Degenerative forefoot joint changes as discussed above. A nonspecific dorsal foot soft tissue edema appears to spare the digits.
== END 2017-02-28 20:35 | disposition home or self-care (01) ==
LOC: H.ER 17:15
DX: R60.0 Localized edema (principal); I25.10 Atherosclerotic heart disease of native coronary artery without angina pectoris; I11.0 Hypertensive heart disease with heart failure; J44.0 Chronic obstructive pulmonary disease with (acute) lower respiratory infection; M20.11 Hallux valgus (acquired), right foot; I48.91 Unspecified atrial fibrillation; Z79.01 Long term (current) use of anticoagulants; Z79.82 Long term (current) use of aspirin; Z86.711 Personal history of pulmonary embolism; I50.9 Heart failure, unspecified; F41.9 Anxiety disorder, unspecified; F17.200 Nicotine dependence, unspecified, uncomplicated; E78.00 Pure hypercholesterolemia, unspecified; E05.90 Thyrotoxicosis, unspecified without thyrotoxic crisis or storm; Z86.718 Personal history of other venous thrombosis and embolism; Z86.73 Personal history of transient ischemic attack (TIA), and cerebral infarction without residual deficits; Z88.0 Allergy status to penicillin

== ENCOUNTER 2017-03-01 08:21 | Emergency (ER) | payer MEDICAID ==
[2017-03-01 08:21] VITALS: PULSE 62; BMI 37.1
[2017-03-01 08:23] VITALS: RESP 16
[2017-03-01 08:46] VITALS: O2SAT 98
--- NOTE | 2017-03-01 09:29 | ED PDOC ---
Lower Extremity Pain/Injury Time Seen by Provider: 03/01/17 08:52 Chief Complaint (Nursing): Lower Extremity Problem/Injury History Per: Patient Onset/Duration Of Symptoms: Days (2) Current Symptoms Are (Timing): Still Present Severity: Moderate Pain Scale Rating Of: 3 Additional Complaint(s): Pain swelling and redness lower ext right >left. No fever x 3 days. No trauma Past Medical History Vital Signs: Last Vital Signs Temp 98.8 F 03/01/17 08:22 Pulse 71 03/01/17 08:22 Resp 16 03/01/17 08:22 BP 148/81 03/01/17 08:22 Pulse Ox 98 03/01/17 08:44 - Medical History PMH: Anxiety, Asthma, Atrial Fibrillation, Bronchitis, CAD, Cardia Arrhythmia, CHF, COPD, CVA, Deep Vein Thrombosis, Gastritis, HTN, Hypercholesterolemia, Hyperlipidemia, Hyperthyroidism, Peripheral Edema, Pneumonia, Pulmonary Embolism Denies: Diabetes, HIV, Chronic Kidney Disease - Family History Family History: States: [place], Diabetes, Hypertension (mother) - Immunization History Hx Tetanus Toxoid Vaccination: No Hx Influenza Vaccination: No Hx Pneumococcal Vaccination: No - Home Medications Home Medications: Ambulatory Orders Medication Instructions Recorded Gabapentin [Neurontin] 300 mg PO BID #30 cap 11/16/16 Aspirin [Aspirin Chewable] 81 mg PO DAILY #30 chew 12/06/16 Colchicine [Mitigare] 0.6 mg PO DAILY #30 capsule 12/06/16 Apixaban [Eliquis] 5 mg PO BID #60 tablet 12/20/16 Losartan Potassium [Cozaar] 100 mg PO DAILY #30 tablet 12/20/16 diltiaZEM CD [Cardizem CD] 240 mg PO DAILY #30 cap 12/20/16 Atorvastatin [Lipitor] 40 mg PO HS tab 01/10/17 Escitalopram [Lexapro] 10 mg PO DAILY tab 01/10/17 Digoxin [Lanoxin] 0.125 mg PO DAILY 30 Days #30 tab 01/16/17 Albuterol HFA [Ventolin HFA 90 2 puff IH Q6 #1 inhaler 01/29/17 mcg/actuation (8 g)] Prednisone [Deltasone] 3 tab PO DAILY #12 tablet 01/29/17 Aspirin [Ecotrin] 325 mg EC DAILY 02/05/17 Azithromycin [Zithromax] 250 mg PO DAILY #5 tab 02/06/17 predniSONE [predniSONE Tab] 40 mg PO DAILY 5 Days tab 02/06/17 Clindamycin [Cleocin] 300 mg PO TID #30 cap 03/01/17 Naproxen [Naprosyn] 500 mg PO Q12H #20 tab 03/01/17 - Allergies Allergies/Adverse Reactions: Allergies Allergy/AdvReac Type Severity Reaction Status Date / Time Penicillins Allergy RASH Verified 02/05/17 05:50 Review of Systems ROS Statement: Except As Marked, All Systems Reviewed And Found Negative Musculoskeletal: Positive for: Leg Pain, Foot Pain Skin: Positive for: Other (redness and swelling) Physical Exam - Reviewed Nursing Documentation Reviewed: Yes Vital Signs Reviewed: Yes - Physical Exam Appears: Positive for: Non-toxic, No Acute Distress Head Exam: Positive for: ATRAUMATIC, NORMAL INSPECTION, NORMOCEPHALIC Skin: Positive for: Normal Color, Warm, DRY Eye Exam: Positive for: EOMI, Normal appearance, PERRL ENT: Positive for: Normal ENT Inspection Neck: Positive for: Normal, Painless ROM Cardiovascular/Chest: Positive for: Regular Rate, Rhythm Respiratory: Positive for: CNT, Normal Breath Sounds Gastrointestinal/Abdominal: Positive for: Normal Exam, Bowel Sounds, Soft Back: Positive for: Normal Inspection Extremity: Positive for: Swelling, Other (Erythema. tenderness right foot and calf and pretibial area. Also with swelling left pretibial area) Neurologic/Psych: Positive for: Alert, Oriented - Laboratory Results Result Diagrams: 03/01/17 10:50 03/01/17 10:50 - ECG O2 Sat by Pulse Oximetry: 98 Disposition - Clinical Impression Clinical Impression: Cellulitis - Patient ED Disposition Is Patient to be Admitted: No Counseled Patient/Family Regarding: Studies Performed, Diagnosis, Need For Followup, Rx Given - Disposition Referrals: [facility] [Outside] Disposition: Routine/Home Disposition Time: 12:26 Condition: FAIR Prescriptions: Clindamycin [Cleocin] 300 mg PO TID #30 cap Naproxen [Naprosyn] 500 mg PO Q12H #20 tab Instructions: Cellulitis (ED) Forms: [employer] (Palestinian) Print Language: TURKISH
[2017-03-01 11:01] LABS: BASO % 0.4 % (0.0-2.0); EOS # 0.2 K/uL (0.0-0.7); EOS % 2.2 % (0.0-4.0); HEMOGLOBIN 15.2 g/dL (12.0-18.0); LYMPH # 1.1 K/uL (1.0-4.3); LYMPH % 11.3 % (20.0-40.0); MEAN CELL VOLUME 89.5 fl (80.0-94.0); MEAN CORPUSCULAR HEMOGLOBIN 28.8 pg (27.0-31.0); MEAN CORPUSCULAR HGB CONC 32.2 g/dL (33.0-37.0); MEAN PLATELET VOLUME 10.1 fl (7.2-11.7); MONO # 0.6 K/uL (0.0-0.8); MONO % 6.6 % (0.0-10.0); NEUT # 7.7 K/uL (1.8-7.0); NEUT % 79.5 % (50.0-75.0); NRBC % 0.3 % (0.0-0.0); RBC 5.27 Mil/uL (4.40-5.90); RED CELL DISTRIBUTION WIDTH 17.1 % (11.5-14.5); WHITE BLOOD COUNT 9.7 K/uL (4.8-10.8)
[2017-03-01 11:09] LABS: VENOUS BLOOD GAS BASE EXCESS 3.2 mmol/L (0.0-2.0); VENOUS BLOOD GAS PCO2 59 mmHg (40-60); VENOUS BLOOD GAS PO2 15 mm/Hg (30-55); VENOUS BLOOD PH 7.33 (7.32-7.43)
[2017-03-01 11:33] LABS: ALB/GLOB RATIO 1.2 (1.0-2.1); ALBUMIN 4.5 g/dL (3.5-5.0); ALT/SGPT 25 U/L (21-72); AST/SGOT 25 U/L (17-59); BLOOD UREA NITROGEN 13 mg/dl (9-20); CALCIUM 11.7 mg/dL (8.4-10.2); GFR AFRICAN-AMERICAN > 60; GFR NON-AFRICAN AMERICAN 56
--- NOTE | 2017-03-01 11:59 | US ---
PROCEDURE: Bilateral lower extremity venous duplex Doppler. HISTORY: pain and swelling COMPARISON: None available. TECHNIQUE: Bilateral common femoral, superficial femoral, popliteal and posterior tibial veins were evaluated. Flow was assessed with color Doppler, compressibility, assessment of phasic flow and augmentation response. FINDINGS: COMMON FEMORAL VEIN: Right CFV: Unremarkable. Left CFV: Unremarkable. SUPERFICIAL FEMORAL VEIN: Right SFV: Unremarkable. Left SFV: Unremarkable. POPLITEAL VEIN: Right Popliteal: Unremarkable. Left Popliteal: Unremarkable. POSTERIOR TIBIAL VEIN: Right PTV: Unremarkable. Left PTV: Unremarkable. OTHER FINDINGS: None. IMPRESSION: No sonographic evidence of deep venous thrombosis bilateral lower extremities.
[2017-03-01 13:41] VITALS: BP 124/78; PULSE 78; TEMP 98.6
== END 2017-03-01 13:41 | disposition home or self-care (01) ==
LOC: H.ER 08:21
DX: L03.116 Cellulitis of left lower limb (principal); E05.90 Thyrotoxicosis, unspecified without thyrotoxic crisis or storm; I50.9 Heart failure, unspecified; J44.9 Chronic obstructive pulmonary disease, unspecified; Z79.01 Long term (current) use of anticoagulants; Z79.82 Long term (current) use of aspirin; I48.91 Unspecified atrial fibrillation; I25.10 Atherosclerotic heart disease of native coronary artery without angina pectoris; I11.0 Hypertensive heart disease with heart failure; F41.9 Anxiety disorder, unspecified; E78.00 Pure hypercholesterolemia, unspecified; Z86.711 Personal history of pulmonary embolism; Z86.718 Personal history of other venous thrombosis and embolism; Z86.73 Personal history of transient ischemic attack (TIA), and cerebral infarction without residual deficits; Z88.0 Allergy status to penicillin

== ENCOUNTER 2017-03-17 09:07 | Emergency (ER) | payer MEDICAID ==
[2017-03-17 09:08] VITALS: PULSE 62; BMI 37.1
[2017-03-17 09:11] VITALS: TEMP 97.5
[2017-03-17] MEDS ORDERED: Sodium Chloride 0.9% 1,000 ML IV STA (09:47)
[2017-03-17 10:55] LABS: BASO # 0.1 K/uL (0.0-0.2); BASO % 0.5 % (0.0-2.0); EOS # 0.2 K/uL (0.0-0.7); EOS % 1.9 % (0.0-4.0); HEMOGLOBIN 15.5 g/dL (12.0-18.0); LYMPH # 1.6 K/uL (1.0-4.3); LYMPH % 14.1 % (20.0-40.0); MEAN CELL VOLUME 87.7 fl (80.0-94.0); MEAN CORPUSCULAR HEMOGLOBIN 28.6 pg (27.0-31.0); MEAN CORPUSCULAR HGB CONC 32.6 g/dL (33.0-37.0); MEAN PLATELET VOLUME 10.2 fl (7.2-11.7); MONO # 0.8 K/uL (0.0-0.8); MONO % 7.1 % (0.0-10.0); NEUT # 8.8 K/uL (1.8-7.0); NEUT % 76.4 % (50.0-75.0); NRBC % 0.1 % (0.0-0.0); RBC 5.43 Mil/uL (4.40-5.90); RED CELL DISTRIBUTION WIDTH 16.9 % (11.5-14.5); WHITE BLOOD COUNT 11.5 K/uL (4.8-10.8)
--- NOTE | 2017-03-17 11:03 | ED PDOC ---
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 Denies new trauma. Prior charts reviewed revealing prior podiatry workup including LE duplexes 2 weeks ago neg for DVT. Past Medical History Reviewed: Historical Data, Nursing Documentation Vital Signs: Last Vital Signs Temp 97.5 F L 03/17/17 09:10 Pulse 93 H 03/17/17 09:10 Resp 16 03/17/17 09:10 BP 148/92 H 03/17/17 09:10 Pulse Ox 97 03/17/17 09:10 - Medical History PMH: Anxiety, Asthma, Atrial Fibrillation, Bronchitis, CAD, Cardia Arrhythmia, CHF, COPD, CVA, Deep Vein Thrombosis, Gastritis, HTN, Hypercholesterolemia, Hyperlipidemia, Hyperthyroidism, Peripheral Edema, Pneumonia, Pulmonary Embolism Denies: Diabetes, HIV, Chronic Kidney Disease - Family History Family History: States: [place], Diabetes, Hypertension (mother) - Immunization History Hx Tetanus Toxoid Vaccination: No Hx Influenza Vaccination: No Hx Pneumococcal Vaccination: No - Home Medications Home Medications: Ambulatory Orders Medication Instructions Recorded Gabapentin [Neurontin] 300 mg PO BID #30 cap 11/16/16 Aspirin [Aspirin Chewable] 81 mg PO DAILY #30 chew 12/06/16 Colchicine [Mitigare] 0.6 mg PO DAILY #30 capsule 12/06/16 Apixaban [Eliquis] 5 mg PO BID #60 tablet 12/20/16 Losartan Potassium [Cozaar] 100 mg PO DAILY #30 tablet 12/20/16 diltiaZEM CD [Cardizem CD] 240 mg PO DAILY #30 cap 12/20/16 Atorvastatin [Lipitor] 40 mg PO HS tab 01/10/17 Escitalopram [Lexapro] 10 mg PO DAILY tab 01/10/17 Digoxin 0.125 mg PO DAILY 30 Days #30 tab 01/16/17 Albuterol HFA [Ventolin HFA 90 2 puff IH Q6 #1 inhaler 01/29/17 mcg/actuation (8 g)] Prednisone [Deltasone] 3 tab PO DAILY #12 tablet 01/29/17 Aspirin [Ecotrin] 325 mg EC DAILY 02/05/17 Azithromycin [Zithromax] 250 mg PO DAILY #5 tab 02/06/17 predniSONE [predniSONE Tab] 40 mg PO DAILY 5 Days tab 02/06/17 Clindamycin [Cleocin] 300 mg PO TID #30 cap 03/01/17 Naproxen [Naprosyn] 500 mg PO Q12H #20 tab 03/01/17 traMADol [Ultram] 50 mg PO TID PRN #12 tab 03/17/17 - Allergies Allergies/Adverse Reactions: Allergies Allergy/AdvReac Type Severity Reaction Status Date / Time Penicillins Allergy RASH Verified 03/17/17 09:11 Review of Systems ROS Statement: Except As Marked, All Systems Reviewed And Found Negative Constitutional: Negative for: Fever, Chills Cardiovascular: Negative for: Chest Pain, Palpitations Respiratory: Negative for: Shortness of Breath Gastrointestinal: Negative for: Nausea Genitourinary Male: Negative for: Dysuria, Frequency Musculoskeletal: Positive for: Leg Pain, Foot Pain. Negative for: Neck Pain Skin: Negative for: Rash, Lesions, Jaundice Neurological: Negative for: Weakness, Numbness, Dizziness Physical Exam - Reviewed Nursing Documentation Reviewed: Yes Vital Signs Reviewed: Yes - Physical Exam Appears: Positive for: Well, Non-toxic Head Exam: Positive for: ATRAUMATIC Skin: Positive for: Normal Color, Warm Eye Exam: Negative for: Periorbital swelling Cardiovascular/Chest: Negative for: Tachycardia Respiratory: Positive for: Normal Breath Sounds. Negative for: Respiratory Distress Extremity: Positive for: Tenderness (feet mild ), Swelling (b/l 3+ nonpitting edema). 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 Negative for: Motor/Sensory Deficits - Laboratory Results Result Diagrams: 03/17/17 10:30 03/17/17 10:30 - ECG O2 Sat by Pulse Oximetry: 97 Medical Decision Making Medical Decision Making: workup for LE edema/pain initiated Duplex neg within last approx 2 weeks Podiatry following pt in clinic check uric acid, initiate pain medicine Disposition - Clinical Impression Clinical Impression: Chronic foot pain - Patient ED Disposition Is Patient to be Admitted: No Counseled Patient/Family Regarding: Studies Performed, Diagnosis, Need For Followup, Rx Given - Disposition Referrals: Podiatry Clinic [Outside] Disposition: Routine/Home Disposition Time: 11:01 Condition: STABLE Prescriptions: traMADol [Ultram] 50 mg PO TID PRN #12 tab PRN Reason: Pain, Moderate (4-7) Instructions: Arthralgia (ED) Forms: [employer] (Finnish)
[2017-03-17 11:40] LABS: ALB/GLOB RATIO 1.2 (1.0-2.1); ALBUMIN 4.5 g/dL (3.5-5.0); ALT/SGPT 33 U/L (21-72); AST/SGOT 33 U/L (17-59); BLOOD UREA NITROGEN 15 mg/dl (9-20); CALCIUM 11.6 mg/dL (8.4-10.2); GFR AFRICAN-AMERICAN > 60; GFR NON-AFRICAN AMERICAN > 60; URIC ACID 7.3 mg/Dl (3.5-8.5)
[2017-03-17 12:06] LABS: URINE BILIRUBIN NEGATIVE (NEGATIVE); URINE BLOOD MODERATE (NEGATIVE); URINE CLARITY SLIGHTY-CLOUDY (Clear); URINE COLOR YELLOW (YELLOW); URINE GLUCOSE (UA) NEG (Normal); URINE LEUKOCYTE ESTERASE NEG Leu/uL (Negative); URINE NITRATE NEGATIVE (NEGATIVE); URINE PROTEIN NEGATIVE (NEGATIVE); URINE UROBILINOGEN 0.2-1.0 mg/dL (0.2-1.0)
--- NOTE | 2017-03-17 12:21 | RAD ---
PROCEDURE: Bilateral Feet Radiographs. HISTORY: Pain. No history of recent/ related trauma provided COMPARISON: 02/28/2017 right foot radiographs FINDINGS: BONES: Right Foot: No acute fracture Left Foot: No acute fracture JOINTS: Right Foot: Stable hallux valgus deformity Left Foot: Symmetrical hallux valgus deformity SOFT TISSUES: Right Foot: Resolution of soft tissue swelling identified previously. Left Foot: Normal. OTHER FINDINGS: None. IMPRESSION: Right foot: Resolution of soft tissue swelling identified on the prior study. No acute abnormality. Stable hallux valgus deformity Left foot: Symmetrical hallux valgus deformity. No acute findings.
[2017-03-17 13:09] VITALS: BP 140/87; PULSE 86; RESP 18
[2017-03-25 14:55] VITALS: O2SAT 97
== END 2017-03-17 13:08 | disposition home or self-care (01) ==
LOC: H.ER 09:07
DX: M20.11 Hallux valgus (acquired), right foot (principal); M20.12 Hallux valgus (acquired), left foot
CPT/HCPCS: 73630; 80053; 81003; 84550; 85025; 96360; 99283; J1885; J7040

== ENCOUNTER 2017-03-24 09:54 | Emergency (ER) | payer MEDICAID ==
[2017-03-24 09:54] VITALS: PULSE 62; BMI 37.1
[2017-03-24 10:04] VITALS: TEMP 97; O2SAT 98
--- NOTE | 2017-03-24 11:11 | ED PDOC ---
Lower Extremity Pain/Injury Time Seen by Provider: 03/24/17 10:44 Chief Complaint (Nursing): Lower Extremity Problem/Injury Chief Complaint (Provider): feet pain History Per: Patient History/Exam Limitations: no limitations Onset/Duration Of Symptoms: Days (1 year) Current Symptoms Are (Timing): Still Present Additional Complaint(s): Pt. with b/l feet pain. Ongoing for 1 year and states gout hx as well. Seen here multiple times and pcp for same. Did not take any meds for it. No numbness, tingles, weakness, calf pain, dyspnea, chest pain. No hormone pills. No long distance travel. No injury. Past Medical History Reviewed: Historical Data, Nursing Documentation, Vital Signs Vital Signs: Last Vital Signs Temp 97 F L 03/24/17 10:03 Pulse 94 H 03/24/17 10:03 Resp BP 150/93 H 03/24/17 10:03 Pulse Ox 98 03/24/17 10:03 - Medical History PMH: Anxiety, Asthma, Atrial Fibrillation, Bronchitis, CAD, Cardia Arrhythmia, CHF, COPD, CVA, Deep Vein Thrombosis, Gastritis, HTN, Hypercholesterolemia, Hyperlipidemia, Hyperthyroidism, Peripheral Edema, Pneumonia, Pulmonary Embolism Denies: Diabetes, HIV, Chronic Kidney Disease Other PMH: gout - Family History Family History: States: [place], Diabetes, Hypertension (mother) - Social History Alcohol: Occasional - Immunization History Hx Tetanus Toxoid Vaccination: No Hx Influenza Vaccination: No Hx Pneumococcal Vaccination: No - Home Medications Home Medications: Ambulatory Orders Medication Instructions Recorded Gabapentin [Neurontin] 300 mg PO BID #30 cap 11/16/16 Aspirin [Aspirin Chewable] 81 mg PO DAILY #30 chew 12/06/16 Colchicine [Mitigare] 0.6 mg PO DAILY #30 capsule 12/06/16 Apixaban [Eliquis] 5 mg PO BID #60 tablet 12/20/16 Losartan Potassium [Cozaar] 100 mg PO DAILY #30 tablet 12/20/16 diltiaZEM CD [Cardizem CD] 240 mg PO DAILY #30 cap 12/20/16 Atorvastatin [Lipitor] 40 mg PO HS tab 01/10/17 Escitalopram [Lexapro] 10 mg PO DAILY tab 01/10/17 Digoxin 0.125 mg PO DAILY 30 Days #30 tab 01/16/17 Albuterol HFA [Ventolin HFA 90 2 puff IH Q6 #1 inhaler 01/29/17 mcg/actuation (8 g)] Prednisone [Deltasone] 3 tab PO DAILY #12 tablet 01/29/17 Aspirin [Ecotrin] 325 mg EC DAILY 02/05/17 Azithromycin [Zithromax] 250 mg PO DAILY #5 tab 02/06/17 predniSONE [predniSONE Tab] 40 mg PO DAILY 5 Days tab 02/06/17 Clindamycin [Cleocin] 300 mg PO TID #30 cap 03/01/17 Naproxen [Naprosyn] 500 mg PO Q12H #20 tab 03/01/17 traMADol [Ultram] 50 mg PO TID PRN #12 tab 03/17/17 - Allergies Allergies/Adverse Reactions: Allergies Allergy/AdvReac Type Severity Reaction Status Date / Time Penicillins Allergy RASH Verified 03/17/17 09:11 Review of Systems ROS Statement: Except As Marked, All Systems Reviewed And Found Negative Constitutional: Negative for: Fever, Weakness Musculoskeletal: Positive for: Foot Pain Physical Exam - Reviewed Nursing Documentation Reviewed: Yes Vital Signs Reviewed: Yes - Physical Exam Appears: Positive for: Non-toxic, No Acute Distress Head Exam: Positive for: ATRAUMATIC, NORMAL INSPECTION, NORMOCEPHALIC Skin: Positive for: Normal Color, Warm, DRY Eye Exam: Positive for: EOMI, Normal appearance, PERRL ENT: Positive for: Normal ENT Inspection Neck: Positive for: Normal, Painless ROM Cardiovascular/Chest: Positive for: Regular Rate, Rhythm Respiratory: Positive for: CNT, Normal Breath Sounds Pulses-Dorsalis Pedis (L): 2+ Pulses-Dorsalis Pedis (R): 2+ Back: Positive for: Normal Inspection. Negative for: L CVA Tenderness, R CVA Tenderness Extremity: Positive for: Normal ROM, Tenderness (b/l dorsum of feet; no erythema or swelling). Negative for: Pedal Edema, Calf Tenderness, Swelling Neurologic/Psych: Positive for: Alert, Oriented. Negative for: Motor/Sensory Deficits - Laboratory Results Result Diagrams: 03/24/17 11:43 03/24/17 11:43 Interpretation Of Abn Labs: no acute - ECG O2 Sat by Pulse Oximetry: 98 - Progress ED Course And Treament: 1308: 03/17/17 had x-ray of feet and no acute findings. 03/01/17 had dopplers with no dvt. Pt. pain controlled. Tolerated PO. AAOx3. Symptoms chronic and ongoing for a long time. Fu with podiatry clinic. Ambulated with no issues. Here multiple for similar issues. Disposition - Clinical Impression Clinical Impression: Pain in both feet - Patient ED Disposition Is Patient to be Admitted: No Counseled Patient/Family Regarding: Studies Performed, Diagnosis, Need For Followup - Disposition Referrals: [facility] [Outside] - 03/25/17 Podiatry Clinic [Outside] - 03/28/17 Disposition: Routine/Home Disposition Time: 13:15 Condition: STABLE Additional Instructions: Return if not better in 3 days. Instructions: Chronic Pain (DC) Print Language: SINHALA
[2017-03-24] MEDS ORDERED: Lactated Ringer's 500 ML IV SCH (11:15)
[2017-03-24 11:53] LABS: BASO # 0.1 K/uL (0.0-0.2); BASO % 0.7 % (0.0-2.0); EOS # 0.2 K/uL (0.0-0.7); EOS % 2.3 % (0.0-4.0); HEMOGLOBIN 15.2 g/dL (12.0-18.0); LYMPH # 1.8 K/uL (1.0-4.3); LYMPH % 16.5 % (20.0-40.0); MEAN CELL VOLUME 87.3 fl (80.0-94.0); MEAN CORPUSCULAR HGB CONC 33.2 g/dL (33.0-37.0); MEAN PLATELET VOLUME 10.5 fl (7.2-11.7); MONO # 0.9 K/uL (0.0-0.8); MONO % 8.6 % (0.0-10.0); NEUT # 7.7 K/uL (1.8-7.0); NEUT % 71.9 % (50.0-75.0); NRBC % 0.1 % (0.0-0.0); RBC 5.24 Mil/uL (4.40-5.90); RED CELL DISTRIBUTION WIDTH 16.5 % (11.5-14.5); WHITE BLOOD COUNT 10.7 K/uL (4.8-10.8)
[2017-03-24 12:31] LABS: ALB/GLOB RATIO 1.1 (1.0-2.1); ALBUMIN 4.3 g/dL (3.5-5.0); ALT/SGPT 25 U/L (21-72); AST/SGOT 25 U/L (17-59); BLOOD UREA NITROGEN 16 mg/dl (9-20); CALCIUM 11.7 mg/dL (8.4-10.2); GFR AFRICAN-AMERICAN > 60; GFR NON-AFRICAN AMERICAN > 60
[2017-03-24 14:03] VITALS: BP 140/78; PULSE 78; RESP 18
== END 2017-03-24 14:03 | disposition home or self-care (01) ==
LOC: H.ER 09:54
DX: M79.672 Pain in left foot (principal); M79.671 Pain in right foot
CPT/HCPCS: 80053; 84550; 85025; 99283; J7120

== ENCOUNTER 2017-05-22 18:20 | Emergency (ER) | payer MEDICAID ==
[2017-05-22 18:20] VITALS: PULSE 62; BMI 37.1
[2017-05-22 18:31] VITALS: BP 190/79
[2017-05-22] MEDS ORDERED: Albuterol-Ipratrop 3 mg / 0.5 (3 ml) UD INH STA (19:05)
[2017-05-22] MEDS ORDERED: Sodium Chloride 0.9% 500 ML IV STA (19:05)
[2017-05-22] MEDS ORDERED: Albuterol-Ipratrop 3 mg / 0.5 (3 ml) UD IH STA (19:05)
--- NOTE | 2017-05-22 19:10 | ED PDOC ---
HPI: SOB/CHF/COPD Time Seen by Provider: 05/22/17 18:43 Chief Complaint (Nursing): Shortness Of Breath Chief Complaint (Provider): Shortness of breath History Per: Patient History/Exam Limitations: no limitations Onset/Duration Of Symptoms: Days (2) Current Symptoms Are (Timing): Still Present Additional Complaint(s): Pt. with wheezes for 2 days. Tried inhaler with no resolve. No chest pain, leg pain, abd pain, nausea, vomit, diarrhea, headaches. Has cough. Feels like his usual asthma. [facility] pcp. Past Medical History Vital Signs: Last Vital Signs Temp 98 F 05/22/17 18:21 Pulse 68 05/22/17 18:21 Resp 22 05/22/17 18:21 BP 190/79 H 05/22/17 18:21 Pulse Ox 98 05/22/17 19:12 - Medical History PMH: Anxiety, Asthma, Atrial Fibrillation, Bronchitis, CAD, Cardia Arrhythmia, CHF, COPD, CVA, Deep Vein Thrombosis, Gastritis, HTN, Hypercholesterolemia, Hyperlipidemia, Hyperthyroidism, Peripheral Edema, Pneumonia, Pulmonary Embolism Denies: Diabetes, HIV, Chronic Kidney Disease - Family History Family History: States: [place], Diabetes, Hypertension (mother) - Immunization History Hx Tetanus Toxoid Vaccination: No Hx Influenza Vaccination: No Hx Pneumococcal Vaccination: No - Home Medications Home Medications: Ambulatory Orders Medication Instructions Recorded Gabapentin [Neurontin] 300 mg PO BID #30 cap 11/16/16 Aspirin [Aspirin Chewable] 81 mg PO DAILY #30 chew 12/06/16 Colchicine [Mitigare] 0.6 mg PO DAILY #30 capsule 12/06/16 Apixaban [Eliquis] 5 mg PO BID #60 tablet 12/20/16 Losartan Potassium [Cozaar] 100 mg PO DAILY #30 tablet 12/20/16 diltiaZEM CD [Cardizem CD] 240 mg PO DAILY #30 cap 12/20/16 Atorvastatin [Lipitor] 40 mg PO HS tab 01/10/17 Escitalopram [Lexapro] 10 mg PO DAILY tab 01/10/17 Digoxin 0.125 mg PO DAILY 30 Days #30 tab 01/16/17 Prednisone [Deltasone] 3 tab PO DAILY #12 tablet 01/29/17 Aspirin [Ecotrin] 325 mg EC DAILY 02/05/17 Azithromycin [Zithromax] 250 mg PO DAILY #5 tab 02/06/17 predniSONE [predniSONE Tab] 40 mg PO DAILY 5 Days tab 02/06/17 Clindamycin [Cleocin] 300 mg PO TID #30 cap 03/01/17 Naproxen [Naprosyn] 500 mg PO Q12H #20 tab 03/01/17 traMADol [Ultram] 50 mg PO TID PRN #12 tab 03/17/17 Albuterol HFA [Ventolin HFA 90 2 puff IH Q6 #1 inhaler 05/09/17 mcg/actuation (8 g)] Prednisone 50 mg PO DAILY #5 tab 05/14/17 Albuterol HFA [Ventolin HFA 90 1 - 2 puff IH Q6 PRN #1 inhaler 05/17/17 mcg/actuation (8 g)] predniSONE [predniSONE Tab] 60 mg PO QAM #12 tab 05/17/17 Albuterol Sulfate [Proair Hfa] 0.09 mg IH Q6H PRN #2 inh 05/22/17 predniSONE [predniSONE Tab] 20 mg PO BID 5 Days tab 05/22/17 - Allergies Allergies/Adverse Reactions: Allergies Allergy/AdvReac Type Severity Reaction Status Date / Time Penicillins Allergy RASH Verified 03/17/17 09:11 Review of Systems ROS Statement: Except As Marked, All Systems Reviewed And Found Negative Respiratory: Positive for: Cough, Shortness of Breath, Wheezing Physical Exam - Reviewed Nursing Documentation Reviewed: Yes Vital Signs Reviewed: Yes - Physical Exam Appears: Positive for: Non-toxic, No Acute Distress Head Exam: Positive for: ATRAUMATIC, NORMAL INSPECTION, NORMOCEPHALIC Skin: Positive for: Normal Color, Warm, DRY Eye Exam: Positive for: EOMI, Normal appearance, PERRL ENT: Positive for: Normal ENT Inspection Neck: Positive for: Normal, Painless ROM Cardiovascular/Chest: Positive for: Regular Rate, Rhythm Respiratory: Positive for: Decreased Breath Sounds, Wheezing (b/l). Negative for: Accessory Muscle Use Gastrointestinal/Abdominal: Positive for: Normal Exam, Soft. Negative for: Tenderness Back: Positive for: Normal Inspection. Negative for: L CVA Tenderness, R CVA Tenderness Extremity: Positive for: Normal ROM, Pedal Edema (trace b/l). Negative for: Tenderness Neurologic/Psych: Positive for: Alert, Oriented - Laboratory Results Result Diagrams: 05/22/17 19:14 05/22/17 19:14 Interpretation Of Abn Labs: no acute - ECG ECG: Positive for: Interpreted By Me, Viewed By Me ECG Rhythm: Positive for: Atrial Fibrillation (rate controlled) O2 Sat by Pulse Oximetry: 98 Pulse Ox Interpretation: Normal - Radiology X-Ray: Interpreted by Me, Viewed By Me X-Ray Interpretation: No Acute Disease - Progress ED Course And Treament: 2113: Stable. AAOx3. Pain free. Breathing much better. Wants to go home. Rx steroids and albuterol. Disposition - Clinical Impression Clinical Impression: Asthma exacerbation - Patient ED Disposition Is Patient to be Admitted: No Counseled Patient/Family Regarding: Studies Performed, Diagnosis, Need For Followup, Rx Given - Disposition Referrals: [facility] [Outside] - 05/23/17 Disposition: Routine/Home Disposition Time: 21:15 Condition: STABLE Additional Instructions: Return if not better in 3 days. Prescriptions: Albuterol Sulfate [Proair Hfa] 0.09 mg IH Q6H PRN #2 inh PRN Reason: Wheezing predniSONE [predniSONE Tab] 20 mg PO BID 5 Days tab Instructions: Asthma, Adult (DC) Print Language: [place] CITIZ[place]
[2017-05-22] MEDS ORDERED: Albuterol-Ipratrop 3 mg / 0.5 (3 ml) UD ONE (19:12)
[2017-05-22 19:28] LABS: BASO % 0.4 % (0.0-2.0); EOS # 0.2 K/uL (0.0-0.7); EOS % 2.8 % (0.0-4.0); HEMOGLOBIN 14.6 g/dL (12.0-18.0); LYMPH # 1.6 K/uL (1.0-4.3); LYMPH % 18.3 % (20.0-40.0); MEAN CELL VOLUME 91.1 fl (80.0-94.0); MEAN CORPUSCULAR HEMOGLOBIN 30.1 pg (27.0-31.0); MEAN CORPUSCULAR HGB CONC 33.1 g/dL (33.0-37.0); MEAN PLATELET VOLUME 9.7 fl (7.2-11.7); MONO # 0.9 K/uL (0.0-0.8); MONO % 9.7 % (0.0-10.0); NEUT # 6.1 K/uL (1.8-7.0); NEUT % 68.8 % (50.0-75.0); RBC 4.87 Mil/uL (4.40-5.90); RED CELL DISTRIBUTION WIDTH 16.7 % (11.5-14.5); WHITE BLOOD COUNT 8.9 K/uL (4.8-10.8)
[2017-05-22 19:38] LABS: INR 1.2 (0.9-1.2); PARTIAL THROMBOPLASTIN TIME 35.8 Seconds (25.6-37.1); PROTHROMBIN TIME 13.8 Seconds (9.8-13.1)
[2017-05-22 19:45] LABS: ALB/GLOB RATIO 1.1 (1.0-2.1); ALBUMIN 3.6 g/dL (3.5-5.0); ALT/SGPT 28 U/L (21-72); AST/SGOT 22 U/L (17-59); B-TYPE NATRIURETIC PEPTIDE 232 pg/ml (0-900); BLOOD UREA NITROGEN 14 mg/dl (9-20); CALCIUM 10.3 mg/dL (8.4-10.2); GFR AFRICAN-AMERICAN > 60; GFR NON-AFRICAN AMERICAN > 60
[2017-05-22 21:29] LABS: ABG ALLEN TEST YES; ARTERIAL BLOOD GAS HCO3 25.7 mmol/L (21-28); ARTERIAL BLOOD GAS O2 SAT 99.6 % (95-98); ARTERIAL BLOOD GAS PCO2 42 mm/Hg (35-45); ARTERIAL BLOOD GAS PO2 83 mm/Hg (80-100); ARTERIAL BLOOD GAS TCO2 27.3 mmol/L (22-28)
[2017-05-22 22:20] VITALS: PULSE 63; RESP 18; TEMP 97.8; O2SAT 99
--- NOTE | 2017-05-23 07:37 | RAD ---
HISTORY: dyspnea COMPARISON: Frontal chest radiograph 03/18/2017. FINDINGS: LUNGS: No interval infiltrate identified bilaterally. PLEURA: No significant pleural effusion identified, no pneumothorax apparent. CARDIOVASCULAR: Stable cardiac silhouette. No pulmonary vascular congestion. OSSEOUS STRUCTURES: No significant abnormalities. VISUALIZED UPPER ABDOMEN: Normal. OTHER FINDINGS: None. IMPRESSION: No interval acute cardiopulmonary disease appreciable. Cardiac silhouette appears stable. No pulmonary vascular congestion appreciated.
--- NOTE | 2017-05-23 08:51 | CARD ---
APPROVED REPORT EKG Measurement Heart [id number] <Conclusion> Atrial fibrillation Abnormal ECG
== END 2017-05-22 22:06 | disposition home or self-care (01) ==
LOC: H.ER 18:20
DX: J45.901 Unspecified asthma with (acute) exacerbation (principal); E05.90 Thyrotoxicosis, unspecified without thyrotoxic crisis or storm; E78.00 Pure hypercholesterolemia, unspecified; I11.0 Hypertensive heart disease with heart failure; Z79.01 Long term (current) use of anticoagulants; Z86.711 Personal history of pulmonary embolism; Z86.718 Personal history of other venous thrombosis and embolism; Z88.0 Allergy status to penicillin
CPT/HCPCS: 36600; 71045; 80053; 82803; 83880; 84484; 85025; 85610; 85730; 93005; 94640; 96361; 96374; 99284; J2930; J7040

== ENCOUNTER 2017-05-24 17:28 | Emergency (ER) | payer MEDICAID ==
[2017-05-24 17:28] VITALS: PULSE 62; BMI 37.1
[2017-05-24] MEDS ORDERED: Albuterol-Ipratrop 3 mg / 0.5 (3 ml) UD ONE (18:28)
[2017-05-24] MEDS: Albuterol-Ipratrop 3 mg / 0.5 (3 ml) UD INH STA (18:31)
[2017-05-24 18:42] LABS: BASO % 0.2 % (0.0-2.0); EOS % 0.1 % (0.0-4.0); HEMOGLOBIN 13.7 g/dL (12.0-18.0); LYMPH # 1.3 K/uL (1.0-4.3); LYMPH % 10.7 % (20.0-40.0); MEAN CELL VOLUME 90.6 fl (80.0-94.0); MEAN CORPUSCULAR HEMOGLOBIN 29.2 pg (27.0-31.0); MEAN CORPUSCULAR HGB CONC 32.2 g/dL (33.0-37.0); MEAN PLATELET VOLUME 10.2 fl (7.2-11.7); MONO % 8.6 % (0.0-10.0); NEUT # 9.5 K/uL (1.8-7.0); NEUT % 80.4 % (50.0-75.0); RBC 4.69 Mil/uL (4.40-5.90); RED CELL DISTRIBUTION WIDTH 17.2 % (11.5-14.5); WHITE BLOOD COUNT 11.8 K/uL (4.8-10.8)
--- NOTE | 2017-05-24 18:42 | ED PDOC ---
HPI: SOB/CHF/COPD Time Seen by Provider: 05/24/17 17:54 Chief Complaint (Nursing): Shortness Of Breath Chief Complaint (Provider): Shortness of breath History Per: Patient History/Exam Limitations: no limitations Onset/Duration Of Symptoms: Persistent Current Symptoms Are (Timing): Still Present Additional Complaint(s): 66yo male with extensive history including COPD, CHf, asthma, presents to ED with complaints of shortness of breath, similar to asthma for the past 2 dyas. Patient states he has been using his albuterol pump with no relief of symptoms. Patient denies any fever, chills, chest pain, and offers no other medical complaints. Past Medical History Reviewed: Historical Data, Nursing Documentation, Vital Signs Vital Signs: Last Vital Signs Temp 98.6 F 05/24/17 17:47 Pulse 71 05/24/17 18:57 Resp 16 05/24/17 17:47 BP 148/87 05/24/17 17:47 Pulse Ox 98 05/24/17 18:57 - Medical History PMH: Anxiety, Asthma, Atrial Fibrillation, Bronchitis, CAD, Cardia Arrhythmia, CHF, COPD, CVA, Deep Vein Thrombosis, Gastritis, HTN, Hypercholesterolemia, Hyperlipidemia, Hyperthyroidism, Peripheral Edema, Pneumonia, Pulmonary Embolism Denies: Diabetes, HIV, Chronic Kidney Disease - Family History Family History: States: [place], Diabetes, Hypertension (mother) - Immunization History Hx Tetanus Toxoid Vaccination: No Hx Influenza Vaccination: No Hx Pneumococcal Vaccination: No - Home Medications Home Medications: Ambulatory Orders Medication Instructions Recorded Gabapentin [Neurontin] 300 mg PO BID #30 cap 11/16/16 Aspirin [Aspirin Chewable] 81 mg PO DAILY #30 chew 12/06/16 Colchicine [Mitigare] 0.6 mg PO DAILY #30 capsule 12/06/16 Apixaban [Eliquis] 5 mg PO BID #60 tablet 12/20/16 Losartan Potassium [Cozaar] 100 mg PO DAILY #30 tablet 12/20/16 [id number] CD [Cardizem CD] 240 mg PO DAILY #30 cap 12/20/16 Atorvastatin [Lipitor] 40 mg PO HS tab 01/10/17 Escitalopram [Lexapro] 10 mg PO DAILY tab 01/10/17 Digoxin 0.125 mg PO DAILY 30 Days #30 tab 01/16/17 Prednisone [Deltasone] 3 tab PO DAILY #12 tablet 01/29/17 Aspirin [Ecotrin] 325 mg EC DAILY 02/05/17 Azithromycin [Zithromax] 250 mg PO DAILY #5 tab 02/06/17 predniSONE [predniSONE Tab] 40 mg PO DAILY 5 Days tab 02/06/17 Clindamycin [Cleocin] 300 mg PO TID #30 cap 03/01/17 Naproxen [Naprosyn] 500 mg PO Q12H #20 tab 03/01/17 traMADol [Ultram] 50 mg PO TID PRN #12 tab 03/17/17 Albuterol HFA [Ventolin HFA 90 2 puff IH Q6 #1 inhaler 05/09/17 mcg/actuation (8 g)] Prednisone 50 mg PO DAILY #5 tab 05/14/17 Albuterol HFA [Ventolin HFA 90 1 - 2 puff IH Q6 PRN #1 inhaler 05/17/17 mcg/actuation (8 g)] predniSONE [predniSONE Tab] 60 mg PO QAM #12 tab 05/17/17 Albuterol Sulfate [Proair Hfa] 0.09 mg IH Q6H PRN #2 inh 05/22/17 predniSONE [predniSONE Tab] 20 mg PO BID 5 Days tab 05/22/17 - Allergies Allergies/Adverse Reactions: Allergies Allergy/AdvReac Type Severity Reaction Status Date / Time Penicillins Allergy RASH Verified 03/17/17 09:11 Review of Systems ROS Statement: Except As Marked, All Systems Reviewed And Found Negative (as per HPI) Constitutional: Negative for: Fever, Chills Cardiovascular: Negative for: Chest Pain Respiratory: Positive for: Shortness of Breath Physical Exam - Reviewed Nursing Documentation Reviewed: Yes Vital Signs Reviewed: Yes - Physical Exam Appears: Positive for: Non-toxic, No Acute Distress Head Exam: Positive for: ATRAUMATIC, NORMOCEPHALIC Skin: Positive for: Warm, Dry Eye Exam: Positive for: EOMI, PERRL ENT: Negative for: Pharyngeal Erythema, Tonsillar Exudate Neck: Positive for: Painless ROM, Supple Cardiovascular/Chest: Positive for: Regular Rate, Rhythm. Negative for: Murmur Respiratory: Positive for: Wheezing (end expiratory wheezing). Negative for: Accessory Muscle Use, Respiratory Distress Gastrointestinal/Abdominal: Positive for: Soft. Negative for: Tenderness Back: Positive for: Normal Inspection Extremity: Positive for: Pedal Edema (pitting). Negative for: Deformity Lymphatic: Negative for: Adenopathy Neurologic/Psych: Positive for: Alert. Negative for: Motor/Sensory Deficits - Laboratory Results Result Diagrams: 05/24/17 18:17 05/24/17 18:30 - ECG ECG: Positive for: Interpreted By Me, Viewed By Me ECG Rhythm: Positive for: Atrial Fibrillation (rate controlled). Negative for: ST/T Changes Rate: 71 O2 Sat by Pulse Oximetry: 98 (RA) Pulse Ox Interpretation: Normal Medical Decision Making Medical Decision Making: Impression: Asthma exacerbation Plan: -- Labs -- Duoneb 6ml INH Labs demonstrate mild hyperkalemia and renal insufficiency. Previous labs demonstrate h/o this in the past. DANIELLA [facility] resident who confirmed appt tomorrow. Scribe Attestation: Documented by Jennifer Durand acting as a scribe for Mery Isabel MD. Provider Attestation: All medical record entries made by the Scribe were at my direction and personally dictated by me. I have reviewed the chart and agree that the record accurately reflects my personal performance of the history, physical exam, medical decision making, and the department course for this patient. I have also personally directed, reviewed, and agree with the discharge instructions and disposition. Disposition - Clinical Impression Clinical Impression: COPD (chronic obstructive pulmonary disease) Counseled Patient/Family Regarding: Studies Performed, Diagnosis, Need For Followup - Disposition Referrals: [facility] [Outside] - 05/25/17 [facility]) Disposition: Routine/Home Disposition Time: 19:55 Condition: IMPROVED Instructions: Chronic Obstructive Pulmonary Disease (COPD), Including Emphysema Print Language: KUWAITI
[2017-05-24 19:26] LABS: ALB/GLOB RATIO 1.1 (1.0-2.1); ALBUMIN 3.5 g/dL (3.5-5.0); ALT/SGPT 37 U/L (21-72); AST/SGOT 26 U/L (17-59); B-TYPE NATRIURETIC PEPTIDE 768 pg/ml (0-900); BLOOD UREA NITROGEN 22 mg/dl (9-20); CALCIUM 10.7 mg/dL (8.4-10.2); GFR AFRICAN-AMERICAN > 60; GFR NON-AFRICAN AMERICAN 56
[2017-05-24] MEDS ORDERED: Sod Polystyrene Sulf 15 gm/60 ml Susp ONE (20:00)
[2017-05-24] MEDS: Sod Polystyrene Sulf 15 gm/60 ml Susp PO ONE (20:04)
[2017-05-24 20:50] VITALS: BP 142/72; PULSE 82; RESP 21; TEMP 98.3; O2SAT 99
== END 2017-05-24 20:46 | disposition home or self-care (01) ==
LOC: H.ER 17:28
DX: J44.9 Chronic obstructive pulmonary disease, unspecified (principal)

== ENCOUNTER 2017-06-08 17:08 | Observation (INO) | payer MEDICAID ==
[2017-06-08 17:08] VITALS: PULSE 62; BMI 37.1
[2017-06-08 18:55] LABS: BASO # 0.1 K/uL (0.0-0.2); BASO % 0.6 % (0.0-2.0); HEMOGLOBIN 14.5 g/dL (12.0-18.0); LYMPH # 0.7 K/uL (1.0-4.3); LYMPH % 5.2 % (20.0-40.0); MEAN CELL VOLUME 90.6 fl (80.0-94.0); MEAN CORPUSCULAR HEMOGLOBIN 29.3 pg (27.0-31.0); MEAN CORPUSCULAR HGB CONC 32.3 g/dL (33.0-37.0); MEAN PLATELET VOLUME 9.6 fl (7.2-11.7); MONO # 0.8 K/uL (0.0-0.8); MONO % 5.8 % (0.0-10.0); NEUT % 88.4 % (50.0-75.0); NRBC % 0.1 % (0.0-0.0); PLATELET COUNT 208 K/uL (130-400); RBC 4.96 Mil/uL (4.40-5.90); RED CELL DISTRIBUTION WIDTH 17.3 % (11.5-14.5); WHITE BLOOD COUNT 13.6 K/uL (4.8-10.8)
[2017-06-08 19:08] LABS: ALB/GLOB RATIO 1.1 (1.0-2.1); ALBUMIN 3.4 g/dL (3.5-5.0); ALT/SGPT 45 U/L (21-72); AST/SGOT 22 U/L (17-59); BLOOD UREA NITROGEN 26 mg/dl (9-20); CALCIUM 10.6 mg/dL (8.4-10.2); GFR AFRICAN-AMERICAN > 60; GFR NON-AFRICAN AMERICAN > 60
--- NOTE | 2017-06-08 19:21 | US ---
EXAM: US Duplex Bilateral Lower Extremity Veins EXAM DATE/TIME: 06/08/2017 6:15 PM CLINICAL HISTORY: 66 years old, male; Signs and symptoms; Swelling of limb; Lower extremity, bilateral; Additional info: Bilateral leg swelling TECHNIQUE: Real-time duplex ultrasound scan of the bilateral lower extremity veins integrating B-mode two-dimensional vascular structure, Doppler spectral analysis, color flow Doppler imaging and compression. COMPARISON: US - DUPLEX LOWER EXTRM VEIN BILAT 2017-03-01 09:39 FINDINGS: Right deep veins:Common femoral, superficial femoral, popliteal and posterior tibial veins were evaluated. All veins examined are compressible. There are no intraluminal filling defects. There is expected blood flow on Doppler imaging. There is change in waveform with augmentation. Left deep veins: Common femoral, superficial femoral, popliteal and posterior tibial veins were evaluated. All veins examined are compressible. There are no intraluminal filling defects. There is expected blood flow on Doppler imaging. There is change in waveform with augmentation. Impression: No deep venous thrombosis in the visualized vascular segments of the lower extremities
--- NOTE | 2017-06-08 19:24 | ED PDOC ---
Lower Extremity Pain/Injury Time Seen by Provider: 06/08/17 17:20 Chief Complaint (Nursing): Lower Extremity Problem/Injury Chief Complaint (Provider): Lower Extremity Problem/Injury History Per: Patient History/Exam Limitations: no limitations Onset/Duration Of Symptoms: Days (x3) Current Symptoms Are (Timing): Still Present Additional Complaint(s): 66 year old male presented to ED, with a past medical history of COPD, CAD, Atrial fibrillation, Peripheral edema, PE, and DVT, with complaints of bilateral lower leg pain and swelling onset of 3 days. Patient denies falls or recent injuries, fever, chills, nausea, vomiting, diarrhea, cough, shortness of breath or chest pain. No further medical complaints. PMD: Maricruz Solis Past Medical History Reviewed: Historical Data, Nursing Documentation, Vital Signs Vital Signs: Last Vital Signs Temp 97.6 F 06/08/17 17:18 Pulse 65 06/08/17 17:18 Resp 16 06/08/17 17:18 BP 166/73 H 06/08/17 17:18 Pulse Ox 98 06/08/17 17:18 - Medical History PMH: Anxiety, Asthma, Atrial Fibrillation, Bronchitis, CAD, Cardia Arrhythmia, CHF, COPD, CVA, Deep Vein Thrombosis, Gastritis, HTN, Hypercholesterolemia, Hyperlipidemia, Hyperthyroidism, Peripheral Edema, Pneumonia, Pulmonary Embolism Denies: Diabetes, HIV, Chronic Kidney Disease - Surgical History Surgical History: No Surg Hx - Family History Family History: States: [place], Diabetes, Hypertension (mother) - Social History Current smoker - smoking cessation education provided: Yes Alcohol: Occasional Drugs: Cocaine (occasionally) - Immunization History Hx Tetanus Toxoid Vaccination: No Hx Influenza Vaccination: No Hx Pneumococcal Vaccination: No - Home Medications Home Medications: Ambulatory Orders Medication Instructions Recorded Gabapentin [Neurontin] 300 mg PO BID #30 cap 11/16/16 Aspirin [Aspirin Chewable] 81 mg PO DAILY #30 chew 12/06/16 Colchicine [Mitigare] 0.6 mg PO DAILY #30 capsule 12/06/16 Apixaban [Eliquis] 5 mg PO BID #60 tablet 12/20/16 Losartan Potassium [Cozaar] 100 mg PO DAILY #30 tablet 12/20/16 diltiaZEM CD [Cardizem CD] 240 mg PO DAILY #30 cap 12/20/16 Atorvastatin [Lipitor] 40 mg PO HS tab 01/10/17 Escitalopram [Lexapro] 10 mg PO DAILY tab 01/10/17 Digoxin 0.125 mg PO DAILY 30 Days #30 tab 01/16/17 Aspirin [Ecotrin] 325 mg EC DAILY 02/05/17 Azithromycin [Zithromax] 250 mg PO DAILY #5 tab 02/06/17 Naproxen [Naprosyn] 500 mg PO Q12H #20 tab 03/01/17 Albuterol HFA [Ventolin HFA 90 2 puff IH Q6 #1 inhaler 05/09/17 mcg/actuation (8 g)] Albuterol HFA [Ventolin HFA 90 1 - 2 puff IH Q6 PRN #1 inhaler 05/17/17 mcg/actuation (8 g)] Albuterol Sulfate [Proair Hfa] 0.09 mg IH Q6H PRN #2 inh 05/22/17 - Allergies Allergies/Adverse Reactions: Allergies Allergy/AdvReac Type Severity Reaction Status Date / Time Penicillins Allergy RASH Verified 06/08/17 17:18 Review of Systems ROS Statement: Except As Marked, All Systems Reviewed And Found Negative Constitutional: Negative for: Fever, Chills, Other (falls or illicit injuries) Cardiovascular: Negative for: Chest Pain Respiratory: Negative for: Cough, Shortness of Breath Gastrointestinal: Negative for: Nausea, Vomiting, Diarrhea Musculoskeletal: Positive for: Leg Pain (b/l lower leg pain and swelling) Physical Exam - Reviewed Nursing Documentation Reviewed: Yes Vital Signs Reviewed: Yes - Physical Exam Appears: Positive for: Non-toxic, No Acute Distress Head Exam: Positive for: ATRAUMATIC, NORMAL INSPECTION, NORMOCEPHALIC Skin: Positive for: Normal Color, Warm, Dry Eye Exam: Positive for: Normal appearance Neck: Positive for: Normal, Painless ROM Cardiovascular/Chest: Positive for: Regular Rate, Rhythm. Negative for: Murmur Respiratory: Positive for: Normal Breath Sounds. Negative for: Wheezing, Respiratory Distress Gastrointestinal/Abdominal: Positive for: Normal Exam, Soft. Negative for: Tenderness Back: Positive for: Normal Inspection. Negative for: L CVA Tenderness, R CVA Tenderness, Vertebral Tenderness Extremity: Positive for: Normal ROM (upper/lower), Pedal Edema, Capillary Refill (less than 2 s), Swelling (From knees down bilateral swelling and erythema), Other (nuerovascularly intact). Negative for: Tenderness (or warmth) , Calf Tenderness, Deformity Neurologic/Psych: Positive for: Alert, Oriented. Negative for: Motor/Sensory Deficits - Laboratory Results Result Diagrams: 06/09/17 05:20 06/09/17 05:20 - ECG O2 Sat by Pulse Oximetry: 98 (RA) Pulse Ox Interpretation: Normal Medical Decision Making Medical Decision Making: Initial Impression: Bilateral lower leg pain and swelling. Initial Plan: CMP CBC Blood culture US-lower extremities -Will order duplex and labs r/o cellulitis 19:21 US - lower extremities FINDINGS: Right deep veins:Common femoral, superficial femoral, popliteal and posterior tibial veins were evaluated. All veins examined are compressible. There are no intraluminal filling defects. There is expected blood flow on Doppler imaging. There is change in waveform with augmentation. Left deep veins: Common femoral, superficial femoral, popliteal and posterior tibial veins were evaluated. All veins examined are compressible. There are no intraluminal filling defects. There is expected blood flow on Doppler imaging. There is change in waveform with augmentation. Impression: No deep venous thrombosis in the visualized vascular segments of the lower extremities White blood cell count of 13.6 w ashift. Patient will be admitted for bilateral lower extremity cellulitis. 21:37 Will call family practice resident regarding patient. Scribe Attestation: Documented by Tereso Abernathy acting as a scribe for Samantha Moulton MD. Provider Scribe Attestation: All medical record entries made by the Scribe were at my direction and personally dictated by me. I have reviewed the chart and agree that the record accurately reflects my personal performance of the history, physical exam, medical decision making, and the department course for this patient. I have also personally directed, reviewed, and agree with the discharge instructions and disposition. Disposition - Clinical Impression Clinical Impression: Cellulitis - Patient ED Disposition Is Patient to be Admitted: Yes Counseled Patient/Family Regarding: Studies Performed, Diagnosis - Disposition Disposition Time: 19:00 Condition: GOOD
[2017-06-08 20:47] LABS: ANISOCYTOSIS SLIGHT; LYMPHOCYTE 5 % (20-50); MONOCYTE 2 % (0-10); MYELOCYTE 1 % (0-0); NEUTROPHIL 91 % (42-75); PLATELET ESTIMATE NORMAL (NORMAL); REACTIVE LYMPHOCYTES 1 % (0-0); TOTAL CELLS COUNTED 100
[2017-06-08 20:48] LABS: OVALOCYTES SLIGHT; STOMATOCYTES SLIGHT
[2017-06-08] MEDS ORDERED: Clindamycin 300 MG in Sodium Chloride 0.9% 50 ML IVPB STA (21:36)
[2017-06-08] MEDS ORDERED: Sodium Chloride 0.9% 1,000 ML IV STA (21:36)
[2017-06-08] MEDS ORDERED: Clindamycin 600mg/50ml NS 0 MG/0 ML BAG IVPB ONE (22:16)
[2017-06-08] MEDS ORDERED: Albuterol HFA 90 mcg/actuation (8 g) IH PRN (22:17)
--- NOTE | 2017-06-08 22:29 | CP.PCM.HP ---
History of Present Illness - History of Present Illness History of Present Illness: Hx taken from patient Full code PMD Dr Solis 66 YO M w/ PMH of COPD, CHF and atrial fibrillation presents to the ER c/o worsening B/L LE edema for the past week. Patient states that he has had similar problems in the past. Denies CP, SOB, palpitations. Denies changes in urination or stools. Patient is homeless and states in the street or skilled nursing. Eating well. He has been compliant with all his medication. Afebrile ED course: VS Stable LE US: NO DVT WBC 13.6 with left shift CMP Unremarkable BCx ordered UA Unremarkable IV Fluids 1L at 250 cc Clindamycin IV once Past medical hx: CHF, Afib, HTN, CVA, COPD, Hyperlipidemia, cocaine abuse, left adrenal mass. Allergies: Penicillin: Rash Family hx: Mother: DMII. Father: alcoholism. Past Surgery hx: B/L bunionectomy in 1994 Social History: homeless, lives in a skilled nursing at [facility] Smoked 2 PPD x 40 yrs, recently cutdown to 1-2 cigarettes. Drinks 1-2 beer/day . States not using drugs anymore Present on Admission - Present on Admission Any Indicators Present on Admission: No Review of Systems - Review of Systems All systems: reviewed and no additional remarkable complaints except (those described on HPI) Past Patient History - Infectious Disease Hx of Infectious Diseases: None - Tetanus Immunizations Tetanus Immunization: Unknown - Past Medical History & Family History Past Medical History?: Yes - Past Social History Smoking Status: Light Smoker < 10 Cigarettes Daily Alcohol: Occasional Drugs: Cocaine (occasionally) - CARDIAC Hx Atrial Fibrillation: Yes Hx Cardia Arrhythmia: Yes Hx Congestive Heart Failure: Yes Hx Hypercholesterolemia: Yes Hx Hypertension: Yes Hx Peripheral Edema: Yes - PULMONARY Hx Asthma: Yes Hx Bronchitis: Yes Hx Chronic Obstructive Pulmonary Disease (COPD): Yes Hx Pneumonia: Yes Hx Pulmonary Embolism: Yes - NEUROLOGICAL Hx Neurological Disorder: Yes HX Cerebrovascular Accident: Yes - HEENT Hx HEENT Problems: No - RENAL Hx Chronic Kidney Disease: No - ENDOCRINE/METABOLIC Hx Hyperthyroidism: Yes - HEMATOLOGICAL/ONCOLOGICAL Hx Human Immunodeficiency Virus (HIV): No - INTEGUMENTARY Hx Dermatological Problems: No - MUSCULOSKELETAL/RHEUMATOLOGICAL Hx Musculoskeletal Disorders: No Hx Falls: No - GASTROINTESTINAL Hx Gastritis: Yes - GENITOURINARY/GYNECOLOGICAL Hx Genitourinary Disorders: No - PSYCHIATRIC Hx Anxiety: Yes - SURGICAL HISTORY Hx Orthopedic Surgery: Yes Other/Comment: Hx BILATERAL BUNIONECTOMY 1992 - ANESTHESIA Hx Anesthesia: Yes Hx Anesthesia Reactions: No Hx Malignant Hyperthermia: No Meds Allergies/Adverse Reactions: Allergies Allergy/AdvReac Type Severity Reaction Status Date / Time Penicillins Allergy RASH Verified 06/08/17 17:18 Physical Exam - Constitutional Appears: Non-toxic, No Acute Distress - Eye Exam Eye Exam: PERRL - ENT Exam ENT Exam: Mucous Membranes Moist - Respiratory Exam Respiratory Exam: NORMAL BREATHING PATTERN. absent: Decreased Breath Sounds, Rales, Rhonchi, Wheezes - Cardiovascular Exam Cardiovascular Exam: +S1, +S2. absent: Gallop - GI/Abdominal Exam GI & Abdominal Exam: Normal Bowel Sounds, Soft. absent: Guarding, Rebound, Rigid, Tenderness - Extremities Exam Extremities exam: Positive for: pedal edema (+2), tenderness (Anterior legs), pedal pulses present. Negative for: calf tenderness, normal inspection (light diffuse pink macular patchy erythema B/L anterior tibial, ) - Neurological Exam Neurological exam: Alert, Normal Gait, Oriented x3 - Psychiatric Exam Psychiatric exam: Normal Affect, Normal Mood - Skin Skin Exam: Warm Results - Vital Signs Recent Vital Signs: Last Vital Signs Temp 98.0 F 06/08/17 22:22 Pulse 60 06/08/17 22:22 Resp 16 06/08/17 17:18 BP 141/61 06/08/17 22:22 Pulse Ox 100 06/08/17 22:22 - Labs Result Diagrams: 06/08/17 18:48 06/08/17 18:48 Labs: Laboratory Results - last 24 hr 06/08/17 06/08/17 18:48 18:48 WBC 13.6 H RBC 4.96 Hgb 14.5 Hct 45.0 MCV 90.6 MCH 29.3 MCHC 32.3 L RDW 17.3 H Plt Count 208 MPV 9.6 Neut % (Auto) 88.4 H Lymph % (Auto) 5.2 L [place] % (Auto) 5.8 Eos % (Auto) 0.0 Baso % (Auto) 0.6 Neut # (Auto) 12.0 H Lymph # (Auto) 0.7 L [place] # (Auto) 0.8 Eos # (Auto) 0.0 Baso # (Auto) 0.1 Neutrophils % (Manual) 91 H Lymphocytes % (Manual) 5 L Reactive Lymphs % 1 H Monocytes % (Manual) 2 Myelocytes % 1 H Platelet Estimate Normal Anisocytosis (manual) Slight Ovalocytes Slight Stomatocytes Slight Sodium 140 Potassium 4.4 Chloride 104 Carbon Dioxide 27 Anion Gap 13 BUN 26 H Creatinine 1.2 Est GFR ( Amer) > 60 Est GFR (Non-Af Amer) > 60 Random Glucose 218 H Calcium 10.6 H Total Bilirubin 0.7 AST 22 ALT 45 Alkaline Phosphatase 107 Total Protein 6.5 Albumin 3.4 L Globulin 3.1 Albumin/Globulin Ratio 1.1 Assessment & Plan - Assessment and Plan (Free Text) Assessment: 66 y/o M with PMHx of CHF, HTN, A.Fib is admitted for B/L LE Edema Acute on chronic lymphedema Unlikely cellulitis. Rash is B/L ,diffuse, mild with edema being predominant sign. Hx of CHF Lasix 40 mg IV once Stop IV fluids F/U Probnp, repeat CBC, BMP AM No DVT on LE US Elevated legs of bed Compression stocking CHF Chronic F/U ProBnp Lasix 40 iv once No SOB at rest C/W Losartan Leukocytosis Unknown No signs of active infection Afebrile Possible Steroid induced since patient has received steroid in the past month for SOB F/U CBC AM and BCx A.Fib Chronic Stable C/W Eliquis 5mg BID C/W Digoxin and Cardizem PO F/U Digoxin levels DVT prophylaxis Patient is on Eliquis
[2017-06-08 23:05] LABS: URINE BILIRUBIN NEGATIVE (NEGATIVE); URINE BLOOD NEGATIVE (NEGATIVE); URINE CLARITY CLEAR (Clear); URINE COLOR YELLOW (YELLOW); URINE GLUCOSE (UA) >=500 mg/dL (Normal); URINE LEUKOCYTE ESTERASE NEG Leu/uL (Negative); URINE PROTEIN NEGATIVE (NEGATIVE)
[2017-06-09 06:21] LABS: BLOOD UREA NITROGEN 25 mg/dl (9-20); CALCIUM 10.2 mg/dL (8.4-10.2); GFR AFRICAN-AMERICAN > 60; GFR NON-AFRICAN AMERICAN > 60
[2017-06-09 06:24] LABS: BASO % 0.1 % (0.0-2.0); EOS # 0.1 K/uL (0.0-0.7); EOS % 0.6 % (0.0-4.0); HEMOGLOBIN 14.7 g/dL (12.0-18.0); LYMPH % 16.4 % (20.0-40.0); MEAN CELL VOLUME 90.6 fl (80.0-94.0); MEAN CORPUSCULAR HEMOGLOBIN 29.5 pg (27.0-31.0); MEAN CORPUSCULAR HGB CONC 32.6 g/dL (33.0-37.0); MEAN PLATELET VOLUME 9.6 fl (7.2-11.7); NEUT % 74.9 % (50.0-75.0); NRBC % 0.1 % (0.0-0.0); RED CELL DISTRIBUTION WIDTH 17.1 % (11.5-14.5)
[2017-06-09 06:26] LABS: B-TYPE NATRIURETIC PEPTIDE 401 pg/ml (0-900)
--- NOTE | 2017-06-09 07:11 | CP.PCM.PN ---
Subjective - Date & Time of Evaluation Date of Evaluation: 06/09/17 Time of Evaluation: 07:10 Objective - Vital Signs/Intake and Output Vital Signs (last 24 hours): Temp Pulse Resp BP Pulse Ox 97.7 F 62 19 149/75 96 06/09/17 00:38 06/09/17 00:41 06/09/17 00:41 06/09/17 00:38 06/09/17 00:41 - Medications Medications: Current Medications Albuterol (Ventolin Hfa 90 Mcg/Actuation (8 G)) 1 puff IH Q6H PRN PRN Reason: Wheezing Apixaban (Eliquis) 5 mg PO BID EARL PRN Reason: Protocol Aspirin (Aspirin Chewable) 81 mg PO DAILY EARL Atorvastatin Calcium (Lipitor) 40 mg PO HS EARL Digoxin (Digoxin) 0.125 mg PO DAILY EARL Diltiazem HCl (Cardizem Cd) 240 mg PO DAILY EARL Escitalopram Oxalate (Lexapro) 10 mg PO DAILY EARL Gabapentin (Neurontin) 300 mg PO BID EARL Losartan Potassium (Cozaar) 100 mg PO DAILY EARL - Labs Labs: 06/09/17 05:20 06/09/17 05:20 Assessment and Plan - Assessment and Plan (Free Text) Assessment: 66 y/o M with PMHx of CHF, HTN, A.Fib is admitted for B/L LE Edema Acute on chronic lymphedema Unlikely cellulitis. Rash is B/L ,diffuse, mild with edema being predominant sign. Hx of CHF Lasix 40 mg IV once Stop IV fluids F/U Probnp, repeat CBC, BMP AM No DVT on LE US Elevated legs of bed Compression stocking CHF Chronic F/U ProBnp Lasix 40 iv once No SOB at rest C/W Losartan Leukocytosis Unknown No signs of active infection Afebrile Possible Steroid induced since patient has received steroid in the past month for SOB F/U CBC AM and BCx A.Fib Chronic Stable C/W Eliquis 5mg BID C/W Digoxin and Cardizem PO F/U Digoxin levels DVT prophylaxis Patient is on Eliquis
--- NOTE | 2017-06-09 07:14 | CP.PCM.PN ---
Subjective - Date & Time of Evaluation Date of Evaluation: 06/09/17 Time of Evaluation: 07:13 Objective - Vital Signs/Intake and Output Vital Signs (last 24 hours): Temp Pulse Resp BP Pulse Ox 97.7 F 62 19 149/75 96 06/09/17 00:38 06/09/17 00:41 06/09/17 00:41 06/09/17 00:38 06/09/17 00:41 - Medications Medications: Current Medications Albuterol (Ventolin Hfa 90 Mcg/Actuation (8 G)) 1 puff IH Q6H PRN PRN Reason: Wheezing Apixaban (Eliquis) 5 mg PO BID EARL PRN Reason: Protocol Aspirin (Aspirin Chewable) 81 mg PO DAILY EARL Atorvastatin Calcium (Lipitor) 40 mg PO HS EARL Digoxin (Digoxin) 0.125 mg PO DAILY EARL Diltiazem HCl (Cardizem Cd) 240 mg PO DAILY EARL Escitalopram Oxalate (Lexapro) 10 mg PO DAILY EARL Gabapentin (Neurontin) 300 mg PO BID EARL Losartan Potassium (Cozaar) 100 mg PO DAILY EARL - Labs Labs: 06/09/17 05:20 06/09/17 05:20 Assessment and Plan - Assessment and Plan (Free Text) Assessment: 71 y/o with multiple co-morbidities admitted for hypoglycemia and s/p fall for obs Hypoglycemia BS=47 Resolved Likely due to uncontrolled DM As per patient she used usual dose of Insulin and ate well. Patient is known to be non compliant with her meds and self manage her DM Repeat BS 94 Hypoglycemia protocol IDDM Chronic Uncontrolled Last HGbA1c 9.3 on 05/23/17 As per patient she is Type 1 On NPH 25 units AM and regular insulin with meals that she self manage Will stop home insulin and will start Lowe dose ISS while inpatient only Diabetic diet CAD Chronic Stable No CP EKG and Trops neg for ischemia C/W Home meds Contusions, s/p fall Pain control with Toradol Await F/U official forearm Xray report HIP Xray neg for Fx or dislocation Monitor DVT prophylaxis SCD for now
[2017-06-09 08:25] VITALS: RESP 20
[2017-06-09] MEDS ORDERED: Digoxin 125 mcg (0.125 mg) Tab PO SCH (09:00)
[2017-06-09] MEDS ORDERED: diltiaZEM 240 mg/24 Hours CD Cap PO SCH (09:00)
--- NOTE | 2017-06-09 09:49 | CP.PCM.DIS ---
Provider - Provider Date of Admission: 06/08/17 21:39 Attending physician: Carolina Ramirez MD Primary care physician: Dr: Maricruz Solis Time Spent in preparation of Discharge (in minutes): 25 Diagnosis - Discharge Diagnosis (1) Leg swelling Status: Acute Comment: -Continue home medications. -F/U with PCP on June 21. Hospital Course - Lab Results Lab Results: Most Recent Lab Values WBC 12.0 K/uL (4.8-10.8) H 06/09/17 05:20 RBC 5.00 Mil/uL (4.40-5.90) 06/09/17 05:20 Hgb 14.7 g/dL (12.0-18.0) 06/09/17 05:20 Hct 45.3 % (35.0-51.0) 06/09/17 05:20 MCV 90.6 fl (80.0-94.0) 06/09/17 05:20 MCH 29.5 pg (27.0-31.0) 06/09/17 05:20 MCHC 32.6 g/dL (33.0-37.0) L 06/09/17 05:20 RDW 17.1 % (11.5-14.5) H 06/09/17 05:20 Plt Count 173 K/uL (130-400) 06/09/17 05:20 MPV 9.6 fl (7.2-11.7) 06/09/17 05:20 Neut % (Auto) 74.9 % (50.0-75.0) 06/09/17 05:20 Lymph % (Auto) 16.4 % (20.0-40.0) L 06/09/17 05:20 [place] % (Auto) 8.0 % (0.0-10.0) 06/09/17 05:20 Eos % (Auto) 0.6 % (0.0-4.0) 06/09/17 05:20 Baso % (Auto) 0.1 % (0.0-2.0) 06/09/17 05:20 Neut # (Auto) 9.0 K/uL (1.8-7.0) H 06/09/17 05:20 Lymph # (Auto) 2.0 K/uL (1.0-4.3) 06/09/17 05:20 [place] # (Auto) 1.0 K/uL (0.0-0.8) H 06/09/17 05:20 Eos # (Auto) 0.1 K/uL (0.0-0.7) 06/09/17 05:20 Baso # (Auto) 0.0 K/uL (0.0-0.2) 06/09/17 05:20 Neutrophils % (Manual) 91 % (42-75) H 06/08/17 18:48 Lymphocytes % (Manual) 5 % (20-50) L 06/08/17 18:48 Reactive Lymphs % 1 % (0-0) H 06/08/17 18:48 Monocytes % (Manual) 2 % (0-10) 06/08/17 18:48 Myelocytes % 1 % (0-0) H 06/08/17 18:48 Platelet Estimate Normal (NORMAL) 06/08/17 18:48 Anisocytosis (manual) Slight 06/08/17 18:48 Ovalocytes Slight 06/08/17 18:48 Stomatocytes Slight 06/08/17 18:48 Sodium 143 mmol/l (132-148) 06/09/17 05:20 Potassium 3.7 MMOL/L (3.6-5.0) 06/09/17 05:20 Chloride 105 mmol/L (98-107) 06/09/17 05:20 Carbon Dioxide 27 mmol/L (22-30) 06/09/17 05:20 Anion Gap 15 (10-20) 06/09/17 05:20 BUN 25 mg/dl (9-20) H 06/09/17 05:20 Creatinine 1.1 mg/dl (0.8-1.5) 06/09/17 05:20 Est GFR ( Amer) > 60 06/09/17 05:20 Est GFR (Non-Af Amer) > 60 06/09/17 05:20 Random Glucose 88 mg/dL (75-110) 06/09/17 05:20 Calcium 10.2 mg/dL (8.4-10.2) 06/09/17 05:20 Magnesium 2.4 MG/DL (1.6-2.3) H 06/09/17 05:20 Total Bilirubin 0.7 mg/dl (0.2-1.3) 06/08/17 18:48 AST 22 U/L (17-59) 06/08/17 18:48 ALT 45 U/L (21-72) 06/08/17 18:48 Alkaline Phosphatase 107 U/L (38-126) 06/08/17 18:48 NT-Pro-B Natriuret Pep 401 pg/ml (0-900) 06/09/17 05:20 Total Protein 6.5 G/DL (6.3-8.2) 06/08/17 18:48 Albumin 3.4 g/dL (3.5-5.0) L 06/08/17 18:48 Globulin 3.1 gm/dL (2.2-3.9) 06/08/17 18:48 Albumin/Globulin Ratio 1.1 (1.0-2.1) 06/08/17 18:48 Urine Color Yellow (YELLOW) 06/08/17 22:51 Urine Clarity Clear (Clear) 06/08/17 22:51 Urine pH 6.0 (5.0-8.0) 06/08/17 22:51 Ur Specific [place] 1.020 (1.003-1.030) 06/08/17 22:51 Urine Protein Negative mg/dL (NEGATIVE) 06/08/17 22:51 Urine Glucose (UA) >=500 mg/dL (Normal) 06/08/17 22:51 Urine Ketones Negative mg/dL (NEGATIVE) 06/08/17 22:51 Urine Blood Negative (NEGATIVE) 06/08/17 22:51 Urine Nitrate Negative (NEGATIVE) 06/08/17 22:51 Urine Bilirubin Negative (NEGATIVE) 06/08/17 22:51 Urine Urobilinogen 2.0 mg/dL (0.2-1.0) 06/08/17 22:51 Ur Leukocyte Esterase Neg Mike/uL (Negative) 06/08/17 22:51 Urine RBC (Auto) 1 /hpf (0-3) 06/08/17 22:51 Urine Microscopic WBC < 1 /hpf (0-5) 06/08/17 22:51 Digoxin 0.5 ng/mL (0.8-2.0) L 06/09/17 04:00 - Hospital Course Hospital Course: 66 y/o M with a PMHx of PMH of COPD, CHF and atrial fibrillation was admitted for evaluation of bilateral leg swelling and possible cellulitis. Pt remained stable, afebrile, tolerating PO and no acute events overnight. Legs were not warm to touch; and swelling improved remarkably after Lasix administration. Pro- BNP was wnl. Chest XR was unremarkable. Physical therapy team evaluated pt, pt was at his baseline of functional independence and NO skilled rehabilitation program was recommended at this moment. F/U appt on 06/21. - Date & Time of H&P Date of H&P: 06/08/17 Time of H&P: 22:28 Discharge Exam - Head Exam Head Exam: ATRAUMATIC, NORMAL INSPECTION, NORMOCEPHALIC - Eye Exam Eye Exam: EOMI - ENT Exam ENT Exam: Mucous Membranes Dry - Neck Exam Neck exam: Full Rom - Respiratory Exam Respiratory Exam: Clear to PA & Lateral, NORMAL BREATHING PATTERN, UNREMARKABLE - Cardiovascular Exam Cardiovascular Exam: +S1, +S2 - GI/Abdominal Exam GI & Abdominal Exam: Normal Bowel Sounds, Soft, Unremarkable. absent: Tenderness - Extremities Exam Extremities exam: full ROM, pedal edema Additional comments: Bilateral lower legs: presence of edema from feet to pre-tibial, no tenderness, SILT, strength 5/5 b/l, NO erythema. - Back Exam Back exam: absent: CVA tenderness (L), CVA tenderness (R) - Neurological Exam Neurological exam: Alert, Oriented x3 Discharge Plan - Follow Up Plan Condition: GOOD Disposition: HOME/ ROUTINE Instructions: Dependent Edema (DC) Additional Instructions: -follow up appointment at [facility] on june 21 -continue with home medications. Referrals: Maricruz Solis MD [Family Provider] -
--- NOTE | 2017-06-09 14:22 | RAD ---
HISTORY: LE edema. CHF. Leukocytosis COMPARISON: 05/22/2017 TECHNIQUE: Chest PA and lateral FINDINGS: LUNGS: No active pulmonary disease. PLEURA: No significant pleural effusion identified. No pneumothorax apparent. CARDIOVASCULAR: No radiographic findings to suggest acute or significant cardiovascular disease. OSSEOUS STRUCTURES: No significant abnormalities. VISUALIZED UPPER ABDOMEN: Normal. OTHER FINDINGS: None. IMPRESSION: No active disease. No significant interval change compared to the prior examination(s).
[2017-06-09 16:41] VITALS: BP 154/68; PULSE 77; TEMP 97.5
[2017-06-09 16:44] VITALS: O2SAT 98
== END 2017-06-09 17:50 | disposition home or self-care (01) ==
LOC: H.ER 17:08 → H.ERHOLD 21:39 → H.MEDSURG1 23:34
PROVIDERS: ADMIT Family Medicine Geriatric Medicine; ATTEND Family Medicine Geriatric Medicine
DX: M79.89 Other specified soft tissue disorders (principal); Z59.0 Homelessness; Z79.01 Long term (current) use of anticoagulants; Z86.711 Personal history of pulmonary embolism; Z86.73 Personal history of transient ischemic attack (TIA), and cerebral infarction without residual deficits; Z86.718 Personal history of other venous thrombosis and embolism; Z88.0 Allergy status to penicillin; I48.2 Chronic atrial fibrillation; I25.10 Atherosclerotic heart disease of native coronary artery without angina pectoris; I11.0 Hypertensive heart disease with heart failure; I50.9 Heart failure, unspecified; J44.9 Chronic obstructive pulmonary disease, unspecified; E78.00 Pure hypercholesterolemia, unspecified; E78.5 Hyperlipidemia, unspecified; F17.200 Nicotine dependence, unspecified, uncomplicated; D72.829 Elevated white blood cell count, unspecified; K29.70 Gastritis, unspecified, without bleeding; F41.9 Anxiety disorder, unspecified
CPT/HCPCS: 36415; 71046; 80048; 80053; 80162; 81003; 83735; 83880; 85025; 87040; 93970; 97161; G0378; G8978; G8979; G8980; J1940; J7040

== ENCOUNTER 2017-06-11 17:42 | Observation (INO) | payer MEDICAID ==
[2017-06-11 17:42] VITALS: BMI 37.1
[2017-06-11] MEDS ORDERED: Albuterol-Ipratrop 3 mg / 0.5 (3 ml) UD IH STA (17:54)
[2017-06-11] MEDS ORDERED: Albuterol-Ipratrop 3 mg / 0.5 (3 ml) UD INH STA (17:54)
[2017-06-11] MEDS ORDERED: Sodium Chloride 0.9% 500 ML IV STA (17:54)
[2017-06-11] MEDS ORDERED: Morphine 4 MG/ML VIAL ONE (18:03)
--- NOTE | 2017-06-11 18:07 | ED PDOC ---
HPI: Chest Pain Time Seen by Provider: 06/11/17 17:49 Chief Complaint (Nursing): Chest Pain Chief Complaint (Provider): chest pain History Per: Patient History/Exam Limitations: no limitations Onset/Duration Of Symptoms: Days (today) Additional Complaint(s): Pt. with pain to left chest and dyspnea. No leg pain, nausea, vomit, diarrhea, abd pain. No cough. No neck pain, dizziness. Past Medical History Reviewed: Nursing Documentation, Vital Signs - Medical History PMH: Anxiety, Asthma, Atrial Fibrillation, Bronchitis, CAD, Cardia Arrhythmia, CHF, COPD, CVA, Deep Vein Thrombosis, Gastritis, HTN, Hypercholesterolemia, Hyperlipidemia, Hyperthyroidism, Peripheral Edema, Pneumonia, Pulmonary Embolism Denies: Diabetes, HIV, Chronic Kidney Disease - Family History Family History: States: [place], CAD, Diabetes, Hypertension (mother) - Social History Current smoker - smoking cessation education provided: No Alcohol: None Drugs: Denies - Immunization History Hx Tetanus Toxoid Vaccination: No Hx Influenza Vaccination: No Hx Pneumococcal Vaccination: No - Home Medications Home Medications: Ambulatory Orders Medication Instructions Recorded Gabapentin [Neurontin] 300 mg PO BID #30 cap 11/16/16 Aspirin [Aspirin Chewable] 81 mg PO DAILY #30 chew 12/06/16 Colchicine [Mitigare] 0.6 mg PO DAILY #30 capsule 12/06/16 Apixaban [Eliquis] 5 mg PO BID #60 tablet 12/20/16 Losartan Potassium [Cozaar] 100 mg PO DAILY #30 tablet 12/20/16 [id number] CD [Cardizem CD] 240 mg PO DAILY #30 cap 12/20/16 Atorvastatin [Lipitor] 40 mg PO HS tab 01/10/17 Escitalopram [Lexapro] 10 mg PO DAILY tab 01/10/17 Digoxin 0.125 mg PO DAILY 30 Days #30 tab 01/16/17 Albuterol Sulfate [Proair Hfa] 0.09 mg IH Q6H PRN #2 inh 05/22/17 - Allergies Allergies/Adverse Reactions: Allergies Allergy/AdvReac Type Severity Reaction Status Date / Time Penicillins Allergy RASH Verified 06/11/17 17:45 Review of Systems ROS Statement: Except As Marked, All Systems Reviewed And Found Negative Cardiovascular: Positive for: Chest Pain Respiratory: Positive for: Shortness of Breath Physical Exam - Reviewed Nursing Documentation Reviewed: Yes Vital Signs Reviewed: Yes - Physical Exam Appears: Positive for: Non-toxic, No Acute Distress Head Exam: Positive for: ATRAUMATIC, NORMAL INSPECTION, NORMOCEPHALIC Skin: Positive for: Normal Color, Warm, DRY Eye Exam: Positive for: EOMI, Normal appearance, PERRL ENT: Positive for: Normal ENT Inspection Neck: Positive for: Normal, Painless ROM Cardiovascular/Chest: Positive for: Regular Rate, Rhythm, Chest Non Tender. Negative for: Edema Respiratory: Positive for: Decreased Breath Sounds, Wheezing (mild expiratory b/ l). Negative for: Accessory Muscle Use Gastrointestinal/Abdominal: Positive for: Normal Exam, Soft. Negative for: Tenderness Back: Positive for: Normal Inspection. Negative for: L CVA Tenderness, R CVA Tenderness Extremity: Positive for: Normal ROM. Negative for: Tenderness, Pedal Edema Neurologic/Psych: Positive for: Alert, Oriented - ECG ECG Rhythm: Positive for: Atrial Fibrillation - Radiology X-Ray: Read By Radiologist X-Ray Interpretation: No Acute Disease - Progress ED Course And Treament: 1856: Dr. Mazariegos to take over care. Fu on labs. Disposition - Clinical Impression Clinical Impression: Chest pain - Patient ED Disposition Is Patient to be Admitted: Transfer of Care - Disposition Disposition: Transfer of Care Disposition Time: 18:56 Condition: STABLE Patient Signed Over To: Mery Mazariegos
--- NOTE | 2017-06-11 18:12 | RAD ---
HISTORY: dyspnea COMPARISON: Chest radiograph dated 06/09/2017. FINDINGS: LUNGS: No active pulmonary disease. PLEURA: No significant pleural effusion identified, no pneumothorax apparent. CARDIOVASCULAR: Atherosclerotic aortic calcifications. Cardiomediastinal silhouette stably enlarged. OSSEOUS STRUCTURES: Unchanged. VISUALIZED UPPER ABDOMEN: Normal. OTHER FINDINGS: None. IMPRESSION: No active disease.
[2017-06-11 18:38] LABS: INR 1.1 (0.9-1.2); PARTIAL THROMBOPLASTIN TIME 16.6 Seconds (25.6-37.1); PROTHROMBIN TIME 11.9 Seconds (9.8-13.1)
[2017-06-11 18:41] LABS: BASO % 0.3 % (0.0-2.0); HEMOGLOBIN 13.8 g/dL (12.0-18.0); LYMPH # 0.7 K/uL (1.0-4.3); LYMPH % 5.2 % (20.0-40.0); MEAN CELL VOLUME 90.6 fl (80.0-94.0); MEAN CORPUSCULAR HEMOGLOBIN 29.2 pg (27.0-31.0); MEAN CORPUSCULAR HGB CONC 32.2 g/dL (33.0-37.0); MEAN PLATELET VOLUME 10.1 fl (7.2-11.7); MONO # 0.7 K/uL (0.0-0.8); MONO % 5.7 % (0.0-10.0); NEUT # 11.2 K/uL (1.8-7.0); NEUT % 88.8 % (50.0-75.0); RBC 4.73 Mil/uL (4.40-5.90); RED CELL DISTRIBUTION WIDTH 17.2 % (11.5-14.5); WHITE BLOOD COUNT 12.6 K/uL (4.8-10.8)
[2017-06-11] MEDS ORDERED: Morphine 4 MG/ML VIAL IV ONE (18:45)
[2017-06-11 19:00] LABS: B-TYPE NATRIURETIC PEPTIDE 260 pg/ml (0-900)
[2017-06-11 19:06] LABS: ALB/GLOB RATIO 1.1 (1.0-2.1); ALBUMIN 3.3 g/dL (3.5-5.0); ALT/SGPT 51 U/L (21-72); AST/SGOT 26 U/L (17-59); BLOOD UREA NITROGEN 22 mg/dl (9-20); CALCIUM 10.4 mg/dL (8.4-10.2); GFR AFRICAN-AMERICAN > 60; GFR NON-AFRICAN AMERICAN 51
--- NOTE | 2017-06-11 19:30 | ED PDOC ---
- Laboratory Results Result Diagrams: 06/11/17 18:26 06/11/17 18:26 - ECG O2 Sat by Pulse Oximetry: 99 (RA) Pulse Ox Interpretation: Normal Medical Decision Making Medical Decision Making: Patient signed out to provider at [address] Smith pending labs and final disposition. - Documented by Ashtyn Dennis acting as a scribe for Mery Mazariegos MD. All medical record entries made by the Scribe were at my direction and personally dictated by me. I have reviewed the chart and agree that the record accurately reflects my personal performance of the history, physical exam, medical decision making, and the department course for this patient. I have also personally directed, reviewed, and agree with the discharge instructions and disposition. Disposition Discussed With : Chase Lofton Doctor Will See Patient In The: ED - Clinical Impression Clinical Impression: Chest pain, COPD exacerbation - POA Present On Arrival: Poor Glycemic Control - Disposition Disposition: Hospitalized as Observation Patient Disposition Time: 19:52 Condition: FAIR
[2017-06-11] MEDS ORDERED: Albuterol 0.083% Inhal Sol (2.5 mg/3 mL) UD INH PRN (20:41)
--- NOTE | 2017-06-11 20:58 | CP.PCM.HP ---
History of Present Illness - History of Present Illness History of Present Illness: 66 year old male presented with complaints of chest pain, increased cough, sputum for past 1 day. He denies any shortness or breath. Chest pain is more left sided, nonradiating, improved since arriving to ED. No diaphoresis, dizziness, nausea or vomiting. Prior to arrival he had been using his albuterol inhaler more frequently with mild improvement of his symptoms. He endorses history of asthma. Only has Albuterol pump. No other inhaled treatment at home. He has PO prednisone 50mg that he has been taking for a few days, says that helps him. He does not have a pecan cleaner. He currently smokes about 2 cigarettes a day. Denies illicit drug use. PMD: Dr. Solis PMH: COPD, Afib, CVA, HTN, HLD, PVD, Gout, Depression, Cocaine abuse, Hyperparathyroidism Medications: as per [facility] med rec: Eliquis 5mg po bid Aspirin 325mg daily Gabapentin 300mg PO BID Ventolin q6 prn Digoxin 125mcg po daily Losartan 100mg PO daily Atorvastatin 40mg PO qhs Diltiazem 240mg PO daily Allergy: Penicillin Social: Etoh - socially, tobacco: 2 cigs per day currently (as per [facility] 94 pack year hx ) , denies illicit drug use. Surgical hx: bunionectomy, cardiac cath June 2016 Family hx : unknown Present on Admission - Present on Admission Any Indicators Present on Admission: No Review of Systems - Constitutional Constitutional: Headache. absent: Excessive Sweating, Fever - EENT Eyes: absent: Change in Vision Nose/Mouth/Throat: absent: Nasal Congestion, Nasal Discharge, Nose Pain, Dysphagia, Sore Throat - Cardiovascular Cardiovascular: Chest Pain. absent: Dyspnea, Dyspnea on Exertion, Pain Radiating to Arm/Neck/Jaw, Leg Edema, Palpitations - Respiratory Respiratory: Cough, Wheezing, Chest Congestion. absent: Dyspnea, Dyspnea on Exertion - Gastrointestinal Gastrointestinal: absent: Abdominal Pain, Change in Bowel Habits, Diarrhea, Nausea, Vomiting - Genitourinary Genitourinary: absent: Dysuria - Musculoskeletal Musculoskeletal: absent: Myalgias - Integumentary Integumentary: absent: Rash Past Patient History - Infectious Disease Hx of Infectious Diseases: None - Tetanus Immunizations Tetanus Immunization: Unknown - Past Medical History & Family History Past Medical History?: Yes - Past Social History Smoking Status: Light Smoker < 10 Cigarettes Daily (previously smoked 2PPD) Alcohol: Social Drugs: Denies - CARDIAC Hx Atrial Fibrillation: Yes Hx Cardia Arrhythmia: Yes Hx Congestive Heart Failure: Yes Hx Hypercholesterolemia: Yes Hx Hypertension: Yes Hx Peripheral Edema: Yes - PULMONARY Hx Asthma: Yes Hx Bronchitis: Yes Hx Chronic Obstructive Pulmonary Disease (COPD): Yes Hx Pneumonia: Yes Hx Pulmonary Embolism: Yes - NEUROLOGICAL Hx Neurological Disorder: Yes HX Cerebrovascular Accident: Yes - HEENT Hx HEENT Problems: No - RENAL Hx Chronic Kidney Disease: No - ENDOCRINE/METABOLIC Hx Hyperthyroidism: Yes - HEMATOLOGICAL/ONCOLOGICAL Hx Human Immunodeficiency Virus (HIV): No - INTEGUMENTARY Hx Dermatological Problems: No - MUSCULOSKELETAL/RHEUMATOLOGICAL Hx Musculoskeletal Disorders: No Hx Falls: No - GASTROINTESTINAL Hx Gastritis: Yes - GENITOURINARY/GYNECOLOGICAL Hx Genitourinary Disorders: No - PSYCHIATRIC Hx Anxiety: Yes - SURGICAL HISTORY Hx Surgeries: Yes Hx Orthopedic Surgery: Yes Other/Comment: Hx BILATERAL BUNIONECTOMY 1992 - ANESTHESIA Hx Anesthesia: Yes Hx Anesthesia Reactions: No Hx Malignant Hyperthermia: No Meds Allergies/Adverse Reactions: Allergies Allergy/AdvReac Type Severity Reaction Status Date / Time Penicillins Allergy RASH Verified 06/11/17 17:45 Physical Exam - Constitutional Appears: No Acute Distress - Head Exam Head Exam: ATRAUMATIC, NORMAL INSPECTION, NORMOCEPHALIC - Eye Exam Eye Exam: Normal appearance - ENT Exam ENT Exam: Mucous Membranes Moist - Neck Exam Neck exam: Positive for: Normal Inspection - Respiratory Exam Respiratory Exam: Decreased Breath Sounds, NORMAL BREATHING PATTERN. absent: Accessory Muscle Use, Chest Wall Tenderness, Prolonged Expiratory Phase, Rales, Rhonchi, Wheezes - Cardiovascular Exam Cardiovascular Exam: Irregular Rhythm, +S1, +S2. absent: Tachycardia, JVD, RRR - GI/Abdominal Exam GI & Abdominal Exam: Soft. absent: Distended, Firm, Guarding, Tenderness - Back Exam Back exam: NORMAL INSPECTION - Neurological Exam Neurological exam: Alert, CN II-XII Intact - Psychiatric Exam Psychiatric exam: Normal Affect, Normal Mood - Skin Skin Exam: Dry, Normal Color, Warm Additional comments: on exposed areas skin intact and dry Results - Vital Signs Recent Vital Signs: Last Vital Signs Temp 98.0 F 06/11/17 17:55 Pulse 66 06/11/17 20:43 Resp 19 06/11/17 20:43 BP 162/86 H 06/11/17 20:43 Pulse Ox 100 06/11/17 20:43 - Labs Result Diagrams: 06/12/17 05:00 06/12/17 05:00 Labs: Laboratory Results - last 24 hr 06/11/17 06/11/17 06/11/17 18:26 18:26 18:26 WBC 12.6 H RBC 4.73 Hgb 13.8 Hct 42.9 MCV 90.6 MCH 29.2 MCHC 32.2 L RDW 17.2 H Plt Count 171 MPV 10.1 Neut % (Auto) 88.8 H Lymph % (Auto) 5.2 L [place] % (Auto) 5.7 Eos % (Auto) 0.0 Baso % (Auto) 0.3 Neut # (Auto) 11.2 H Lymph # (Auto) 0.7 L [place] # (Auto) 0.7 Eos # (Auto) 0.0 Baso # (Auto) 0.0 PT 11.9 INR 1.1 APTT 16.6 L Sodium 141 Potassium 4.6 Chloride 105 Carbon Dioxide 26 Anion Gap 15 BUN 22 H Creatinine 1.4 Est GFR ( Amer) > 60 Est GFR (Non-Af Amer) 51 Random Glucose 241 H Calcium 10.4 H Total Bilirubin 0.6 AST 26 ALT 51 Alkaline Phosphatase 104 Troponin I < 0.0120 NT-Pro-B Natriuret Pep 260 Total Protein 6.3 Albumin 3.3 L Globulin 2.9 Albumin/Globulin Ratio 1.1 Assessment & Plan - Assessment and Plan (Free Text) Assessment: 66 year old male with multiple comorbidites admitted for chest pain, rule out ACS. Possibly multifactorial etiology, patient does have CAD, had cardiac catheterization last year, no stents were placed. He also has COPD vs Asthma, continues to smoke cigarettes, possible mild exacerbation. No PFTs found in [facility] or [facility]. Patient would benefit from outpatient PFTs. Given significant hx of cardiac cath last year will admit for rule out ACS. Chest pain: -Tylenol for pain -patient received aspirin -Trend troponins -ECG in AM -monitor BP Leukocytosis mild, possibly secondary to prednisone repeat in am has been afebrile will monitor for fever COPD/Asthma -duonebs q4 -albuterol PRN -has been on outpatient prednisone, likely cause of leukocytosis will monitor response to nebulized treatment. -encouraged smoking cessation, heavy smoking history likely HTN/HLD Resume home medications and monitor Hyperglycemia -will check hga1c, prediabetic -has been trending up -f/u in am DVT Prophylaxis on eliquis scds
[2017-06-11 21:21] LABS: BARBITURATES, UR NEGATIVE (NEGATIVE); BENZODIAZEPINES, UR NEGATIVE (NEGATIVE); OPIATES, UR POSITIVE (NEGATIVE); PHENCYCLIDINE, UR NEGATIVE (NEGATIVE)
[2017-06-11] MEDS ORDERED: Albuterol-Ipratrop 3 mg / 0.5 (3 ml) UD INH PRN (22:25)
[2017-06-12 05:18] VITALS: RESP 18
[2017-06-12 06:29] LABS: BASO % 0.2 % (0.0-2.0); HEMOGLOBIN 14.2 g/dL (12.0-18.0); LYMPH # 0.4 K/uL (1.0-4.3); MEAN CELL VOLUME 92.3 fl (80.0-94.0); MEAN CORPUSCULAR HEMOGLOBIN 29.4 pg (27.0-31.0); MEAN CORPUSCULAR HGB CONC 31.8 g/dL (33.0-37.0); MEAN PLATELET VOLUME 9.9 fl (7.2-11.7); MONO # 0.3 K/uL (0.0-0.8); MONO % 2.1 % (0.0-10.0); NEUT # 13.2 K/uL (1.8-7.0); NEUT % 94.7 % (50.0-75.0); PLATELET COUNT 162 K/uL (130-400); RBC 4.83 Mil/uL (4.40-5.90); RED CELL DISTRIBUTION WIDTH 17.1 % (11.5-14.5)
[2017-06-12 06:48] LABS: BLOOD UREA NITROGEN 22 mg/dl (9-20); CALCIUM 10.5 mg/dL (8.4-10.2); GFR AFRICAN-AMERICAN > 60; GFR NON-AFRICAN AMERICAN > 60
--- NOTE | 2017-06-12 07:53 | CP.PCM.PN ---
Subjective - Date & Time of Evaluation Date of Evaluation: 06/12/17 Time of Evaluation: 07:53 - Subjective Subjective: 66 y/o M evaluated and examined by bedside. Pt reports chest pain has resolved. Pt complains of SOB since this morning. Pt afebrile, tolerating PO, good appetite and able to ambulate. Pt denies headache, abdominal pain, nausea, vomiting, urinary complaints or rash. Objective - Vital Signs/Intake and Output Vital Signs (last 24 hours): Temp Pulse Resp BP Pulse Ox 97.8 F 79 18 171/90 H 98 06/12/17 04:51 06/12/17 04:51 06/12/17 04:51 06/12/17 04:51 06/12/17 04:51 - Medications Medications: Current Medications Acetaminophen (Tylenol 325mg Tab) 650 mg PO Q6 PRN PRN Reason: Pain, moderate (4-7) Albuterol Sulfate (Albuterol 0.083% Inhal [place] (2.5 Mg/3 Ml) Ud) 2.5 mg INH RQ6 PRN PRN Reason: Shortness of Breath Albuterol/Ipratropium (Duoneb 3 Mg/0.5 Mg (3 Ml) Ud) 3 ml INH RQ4 PRN PRN Reason: Shortness of Breath Apixaban (Eliquis) 5 mg PO BID [facility] PRN Reason: Protocol Aspirin (Aspirin Chewable) 81 mg PO DAILY [facility] Atorvastatin Calcium (Lipitor) 40 mg PO HS [facility] Last Admin: 06/11/17 23:40 Dose: 40 mg Digoxin (Digoxin) 0.125 mg PO DAILY [facility] Diltiazem HCl (Cardizem Cd) 240 mg PO DAILY [facility] Gabapentin (Neurontin) 300 mg PO BID [facility] Losartan Potassium (Cozaar) 100 mg PO DAILY [facility] - Labs Labs: 06/12/17 05:00 06/12/17 05:00 PT 11.9 Seconds (9.8-13.1) 06/11/17 18:26 INR 1.1 (0.9-1.2) 06/11/17 18:26 APTT 16.6 Seconds (25.6-37.1) L 06/11/17 18:26 - Constitutional Appears: Non-toxic - Head Exam Head Exam: ATRAUMATIC - Eye Exam Eye Exam: EOMI - Neck Exam Neck Exam: Full ROM. absent: Lymphadenopathy, Meningismus - Respiratory Exam Respiratory Exam: NORMAL BREATHING PATTERN Additional comments: Presence of decreased breath sounds b/l, mild wheezing on lower lung [place]. - Cardiovascular Exam Cardiovascular Exam: +S1, +S2 - GI/Abdominal Exam GI & Abdominal Exam: Soft, Normal Bowel Sounds. absent: Tenderness - Extremities Exam Extremities Exam: Full ROM. absent: Calf Tenderness - Neurological Exam Neurological Exam: Alert, Awake, Oriented x3 Assessment and Plan - Assessment and Plan (Free Text) Assessment: 66 y/o male with a PMHx of CAD, COPD, current smoker and asthma admitted for chest pain, rule out ACS. --Possibly multifactorial etiology, patient does have CAD, had cardiac catheterization last year, no stents were placed. Plan Chest pain -Tylenol for pain -S/P Aspirin -CXR with NO active disease. -troponins x2-WNL -F/U repeated ECG in AM Leukocytosis -most probably secondary to prednisone, PO at home and IV Solu-Medrol 125mg at ED. -Afebrile -will monitor VS. Hyperkalemia -Today's K+ 5.4-elevated. -Albuterol/Ipratropium Neb x2 ordered. Albuterol should help lower K+ serum level. COPD/Asthma -Duonebs q4 -has been on outpatient prednisone, likely cause of leukocytosis -monitor response to nebulized treatment. -Smoking cessation reinforced. HTN/HLD -Resume home medications and monitor Hyperglycemia -will check Hga1c, prediabetic -has been trending up -f/u in am DVT Prophylaxis -On eliquis -SCDs
[2017-06-12 07:57] LABS: NEUTROPHIL 98 % (42-75); REACTIVE LYMPHOCYTES 2 % (0-0); TOTAL CELLS COUNTED 100
[2017-06-12] MEDS ORDERED: Albuterol 0.083% Inhal Sol (2.5 mg/3 mL) UD INH ONE ×2 (07:57→07:59)
[2017-06-12 07:59] LABS: ANISOCYTOSIS SLIGHT; HYPOCHROMIC SLIGHT; OVALOCYTES SLIGHT; POIKILOCYTOSIS SLIGHT
[2017-06-12 08:00] LABS: STOMATOCYTES SLIGHT
[2017-06-12 08:01] LABS: GIANT PLATELETS PRESENT; LARGE PLATELETS PRESENT
[2017-06-12 08:03] LABS: PLATELET ESTIMATE NORMAL (NORMAL)
[2017-06-12] MEDS ORDERED: Albuterol-Ipratrop 3 mg / 0.5 (3 ml) UD INH STA ×2 (08:11→08:12)
[2017-06-12 08:44] VITALS: PULSE 84
[2017-06-12] MEDS ORDERED: diltiaZEM 240 mg/24 Hours CD Cap PO SCH (09:00)
[2017-06-12] MEDS ORDERED: Enoxaparin 40 mg Syringe SC SCH (09:00)
[2017-06-12] MEDS ORDERED: Digoxin 125 mcg (0.125 mg) Tab PO SCH (09:00)
--- NOTE | 2017-06-12 11:18 | CP.PCM.DIS ---
Provider - Provider Date of Admission: 06/11/17 19:50 Attending physician: Carolina Ramirez MD Primary care physician: [facility] Consults: None Time Spent in preparation of Discharge (in minutes): 25 Diagnosis - Discharge Diagnosis (1) Chest pain Status: Acute Comment: -Resolved. -F/U appintment on 06/21/17. Hospital Course - Lab Results Lab Results: Most Recent Lab Values WBC 14.0 K/uL (4.8-10.8) H 06/12/17 05:00 RBC 4.83 Mil/uL (4.40-5.90) 06/12/17 05:00 Hgb 14.2 g/dL (12.0-18.0) 06/12/17 05:00 Hct 44.5 % (35.0-51.0) 06/12/17 05:00 MCV 92.3 fl (80.0-94.0) 06/12/17 05:00 MCH 29.4 pg (27.0-31.0) 06/12/17 05:00 MCHC 31.8 g/dL (33.0-37.0) L 06/12/17 05:00 RDW 17.1 % (11.5-14.5) H 06/12/17 05:00 Plt Count 162 K/uL (130-400) 06/12/17 05:00 MPV 9.9 fl (7.2-11.7) 06/12/17 05:00 Neut % (Auto) 94.7 % (50.0-75.0) H 06/12/17 05:00 Lymph % (Auto) 3.0 % (20.0-40.0) L 06/12/17 05:00 [place] % (Auto) 2.1 % (0.0-10.0) 06/12/17 05:00 Eos % (Auto) 0.0 % (0.0-4.0) 06/12/17 05:00 Baso % (Auto) 0.2 % (0.0-2.0) 06/12/17 05:00 Neut # (Auto) 13.2 K/uL (1.8-7.0) H 06/12/17 05:00 Lymph # (Auto) 0.4 K/uL (1.0-4.3) L 06/12/17 05:00 [place] # (Auto) 0.3 K/uL (0.0-0.8) 06/12/17 05:00 Eos # (Auto) 0.0 K/uL (0.0-0.7) 06/12/17 05:00 Baso # (Auto) 0.0 K/uL (0.0-0.2) 06/12/17 05:00 Neutrophils % (Manual) 98 % (42-75) H 06/12/17 05:00 Lymphocytes % (Manual) TEST NOT PERFORMED 06/12/17 05:00 Reactive Lymphs % 2 % (0-0) H 06/12/17 05:00 Monocytes % (Manual) TEST NOT PERFORMED 06/12/17 05:00 Platelet Estimate Normal (NORMAL) 06/12/17 05:00 Large Platelets Present 06/12/17 05:00 Giant Platelets Present 06/12/17 05:00 Hypochromasia (manual) Slight 06/12/17 05:00 Poikilocytosis (manual Slight 06/12/17 05:00 Anisocytosis (manual) Slight 06/12/17 05:00 Macrocytosis (manual) Slight 06/12/17 05:00 Ovalocytes Slight 06/12/17 05:00 Stomatocytes Slight 06/12/17 05:00 PT 11.9 Seconds (9.8-13.1) 06/11/17 18:26 INR 1.1 (0.9-1.2) 06/11/17 18:26 APTT 16.6 Seconds (25.6-37.1) L 06/11/17 18:26 Sodium 140 mmol/l (132-148) 06/12/17 05:00 Potassium 5.4 MMOL/L (3.6-5.0) H 06/12/17 05:00 Chloride 102 mmol/L (98-107) 06/12/17 05:00 Carbon Dioxide 29 mmol/L (22-30) 06/12/17 05:00 Anion Gap 14 (10-20) 06/12/17 05:00 BUN 22 mg/dl (9-20) H 06/12/17 05:00 Creatinine 1.2 mg/dl (0.8-1.5) 06/12/17 05:00 Est GFR ( Amer) > 60 05/06/18 05:00 Est GFR (Non-Af Amer) > 60 06/12/17 05:00 POC Glucose (mg/dL) 182 mg/dL (65-110) H 06/12/17 05:02 Random Glucose 181 mg/dL (75-110) H 06/12/17 05:00 Calcium 10.5 mg/dL (8.4-10.2) H 06/12/17 05:00 Total Bilirubin 0.6 mg/dl (0.2-1.3) 06/11/17 18:26 AST 26 U/L (17-59) 06/11/17 18:26 ALT 51 U/L (21-72) 06/11/17 18:26 Alkaline Phosphatase 104 U/L (38-126) 06/11/17 18:26 Troponin I < 0.0120 ng/mL (0.00-0.120) 06/12/17 02:53 NT-Pro-B Natriuret Pep 260 pg/ml (0-900) 06/11/17 18:26 Total Protein 6.3 G/DL (6.3-8.2) 06/11/17 18:26 Albumin 3.3 g/dL (3.5-5.0) L 06/11/17 18:26 Globulin 2.9 gm/dL (2.2-3.9) 06/11/17 18:26 Albumin/Globulin Ratio 1.1 (1.0-2.1) 06/11/17 18:26 TSH 3rd Generation 0.57 mIU/ML (0.46-4.68) 06/12/17 05:00 Urine Opiates Screen Positive (NEGATIVE) H 06/11/17 20:52 Urine Methadone Screen Negative (NEGATIVE) 06/11/17 20:52 Ur Barbiturates Screen Negative (NEGATIVE) 06/11/17 20:52 Ur Phencyclidine Scrn Negative (NEGATIVE) 06/11/17 20:52 Ur Amphetamines Screen Negative (NEGATIVE) 06/11/17 20:52 U Benzodiazepines Scrn Negative (NEGATIVE) 06/11/17 20:52 U Oth Cocaine Metabols Positive (NEGATIVE) H 06/11/17 20:52 U Cannabinoids Screen Negative (NEGATIVE) 06/11/17 20:52 - Hospital Course Hospital Course: 66 y/o M with a PMHx of COPD, Afib, CVA, HTN, HLD, PVD, Gout, Depression, Cocaine abuse and Hyperparathyroidism admitted with chest pain and for evaluation of CAD. EKG, CXR and troponin serum level were all unremarkable. Pt received Albuterol Neb therapy, Solu-Medrol and Nitro-glycerin. Chest pain resolved today. Leukocytosis most probably due to corticosteroids administration. Pt has remained stable, afebrile, tolerating PO, will d/c home. F/U with [facility] on 06/21/17. - Date & Time of H&P Date of H&P: 06/12/17 Time of H&P: 11:14 Discharge Exam - Additional Findings Additional findings: - Constitutional Appears: Non-toxic - Head Exam Head Exam: ATRAUMATIC - Eye Exam Eye Exam: EOMI - Neck Exam Neck Exam: Full ROM. absent: Lymphadenopathy, Meningismus - Respiratory Exam Respiratory Exam: NORMAL BREATHING PATTERN Additional comments: Presence of decreased breath sounds b/l, mild wheezing on lower lung quintana. - Cardiovascular Exam Cardiovascular Exam: +S1, +S2 - GI/Abdominal Exam GI & Abdominal Exam: Soft, Normal Bowel Sounds. absent: Tenderness - Extremities Exam Extremities Exam: Full ROM. absent: Calf Tenderness - Neurological Exam Neurological Exam: Alert, Awake, Oriented x3 Discharge Plan - Follow Up Plan Condition: FAIR Disposition: HOME/ ROUTINE Instructions: Chest Pain (DC) Additional Instructions: -Please F/U on 06/21/17. -Continue with home medications. -Avoid smoking.
[2017-06-12 12:24] VITALS: BP 161/87; PULSE 98; TEMP 97.2; O2SAT 98
--- NOTE | 2017-06-12 15:21 | CARD ---
APPROVED REPORT EKG Measurement Heart [id number] <Conclusion> Atrial fibrillation Abnormal ECG
== END 2017-06-12 13:49 | disposition home or self-care (01) ==
LOC: H.ER 17:42 → H.ERHOLD 19:50 → H.TEL 21:29
PROVIDERS: ADMIT Family Medicine Geriatric Medicine; ATTEND Family Medicine Geriatric Medicine
DX: R07.9 Chest pain, unspecified (principal); D72.829 Elevated white blood cell count, unspecified; E78.00 Pure hypercholesterolemia, unspecified; E78.5 Hyperlipidemia, unspecified; F17.210 Nicotine dependence, cigarettes, uncomplicated; I11.0 Hypertensive heart disease with heart failure; I25.10 Atherosclerotic heart disease of native coronary artery without angina pectoris; I48.91 Unspecified atrial fibrillation; I50.9 Heart failure, unspecified; Z86.711 Personal history of pulmonary embolism; Z88.0 Allergy status to penicillin; Z86.73 Personal history of transient ischemic attack (TIA), and cerebral infarction without residual deficits; R73.9 Hyperglycemia, unspecified; I73.9 Peripheral vascular disease, unspecified; J44.9 Chronic obstructive pulmonary disease, unspecified; E21.3 Hyperparathyroidism, unspecified; M10.9 Gout, unspecified; F32.9 Major depressive disorder, single episode, unspecified; F41.9 Anxiety disorder, unspecified; Z98.61 Coronary angioplasty status; K29.70 Gastritis, unspecified, without bleeding
CPT/HCPCS: 36415; 71045; 80048; 80053; 80324; 80345; 80346; 80349; 80353; 80358; 80361; 82948; 83036; 83880; 83992; 84443; 84484; 85025; 85610; 85730; 93005; 94150; 94640; 96374; 96375; 99285; G0378; J1940; J2270; J2930; J7040

== ENCOUNTER 2017-07-02 05:16 | Emergency (ER) | payer MEDICAID ==
[2017-07-02 05:16] VITALS: PULSE 84; BMI 37.1
[2017-07-02] MEDS ORDERED: Albuterol-Ipratrop 3 mg / 0.5 (3 ml) UD INH STA (05:32)
[2017-07-02 05:34] VITALS: RESP 18
--- NOTE | 2017-07-02 06:18 | ED PDOC ---
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 Patient reports shortness of breath and wheezing. Patient has a history of bed seeking behavior. PMD: None Past Medical History Reviewed: Historical Data, Nursing Documentation, Vital Signs Vital Signs: Last Vital Signs Temp 98.2 F 07/02/17 05:26 Pulse 98 H 07/02/17 05:26 Resp 18 07/02/17 05:34 BP 118/64 07/02/17 05:26 Pulse Ox 98 07/02/17 06:23 - Medical History PMH: Anxiety, Asthma, Atrial Fibrillation, Bronchitis, CAD, Cardia Arrhythmia, CHF, COPD, CVA, Deep Vein Thrombosis, Gastritis, HTN, Hypercholesterolemia, Hyperlipidemia, Hyperthyroidism, Peripheral Edema, Pneumonia, Pulmonary Embolism Denies: Diabetes, HIV, Chronic Kidney Disease - Surgical History Surgical History: No Surg Hx - Family History Family History: States: [place], CAD, Diabetes, Hypertension (mother) - Social History Current smoker - smoking cessation education provided: Yes Alcohol: None Drugs: Cocaine - Immunization History Hx Tetanus Toxoid Vaccination: No Hx Influenza Vaccination: No Hx Pneumococcal Vaccination: No - Home Medications Home Medications: Ambulatory Orders Medication Instructions Recorded Gabapentin [Neurontin] 300 mg PO BID #30 cap 11/16/16 Aspirin [Aspirin Chewable] 81 mg PO DAILY #30 chew 12/06/16 Colchicine [Mitigare] 0.6 mg PO DAILY #30 capsule 12/06/16 Apixaban [Eliquis] 5 mg PO BID #60 tablet 12/20/16 Losartan Potassium [Cozaar] 100 mg PO DAILY #30 tablet 12/20/16 diltiaZEM CD [Cardizem CD] 240 mg PO DAILY #30 cap 12/20/16 Atorvastatin [Lipitor] 40 mg PO HS tab 01/10/17 Escitalopram [Lexapro] 10 mg PO DAILY tab 01/10/17 Digoxin 0.125 mg PO DAILY 30 Days #30 tab 01/16/17 Albuterol Sulfate [Proair Hfa] 0.09 mg IH Q6H PRN #2 inh 05/22/17 Albuterol HFA [Ventolin HFA 90 1 - 2 puff IH Q6 PRN #1 inhaler 06/17/17 mcg/actuation (8 g)] Methylprednisolone [Medrol Dosepak] 4 mg PO ASDIR #1 pkg 06/17/17 Furosemide [Lasix] 20 mg PO DAILY #10 tab 06/29/17 Albuterol Sulfate [Proair Hfa] 0.09 mg IH Q6 PRN #1 inh 07/02/17 predniSONE [predniSONE Tab] 60 mg PO QAM #12 tab 07/02/17 - Allergies Allergies/Adverse Reactions: Allergies Allergy/AdvReac Type Severity Reaction Status Date / Time Penicillins Allergy RASH Verified 06/28/17 19:09 Review of Systems ROS Statement: Except As Marked, All Systems Reviewed And Found Negative Respiratory: Positive for: Shortness of Breath, Wheezing Physical Exam - Reviewed Nursing Documentation Reviewed: Yes Vital Signs Reviewed: Yes - Physical Exam Appears: Positive for: Non-toxic, No Acute Distress Head Exam: Positive for: ATRAUMATIC, NORMAL INSPECTION, NORMOCEPHALIC Skin: Positive for: Normal Color, Warm, Dry. Negative for: Rash Eye Exam: Positive for: EOMI, Normal appearance, PERRL Neck: Positive for: Normal, Painless ROM, Supple Cardiovascular/Chest: Positive for: Regular Rate, Rhythm. Negative for: Murmur Respiratory: Positive for: Wheezing (mild expiratory wheezing) Gastrointestinal/Abdominal: Positive for: Normal Exam, Soft. Negative for: Tenderness Back: Positive for: Normal Inspection. Negative for: L CVA Tenderness, R CVA Tenderness, Vertebral Tenderness Extremity: Positive for: Normal ROM. Negative for: Pedal Edema, Deformity Neurologic/Psych: Positive for: Alert, Oriented. Negative for: Motor/Sensory Deficits - ECG O2 Sat by Pulse Oximetry: 98 (RA) Pulse Ox Interpretation: Normal Medical Decision Making Medical Decision Making: Initial Impression: 66 y/o male with mild asthma exacerbation Initial Plan: --EKG --CMP --Duoneb 9ml INH --Prednisone 60mg PO --Heplock --Peak flow treatment --Reevaluation 06:26 Upon reevaluation, patient reports improvement of symptoms. Patient is stable for discharge. Scribe Attestation: Documented by Jamison Traylor, acting as a scribe for Huseyin Peters MD. Provider Scribe Attestation: All medical record entries made by the Scribe were at my direction and personally dictated by me. I have reviewed the chart and agree that the record accurately reflects my personal performance of the history, physical exam, medical decision making, and the department course for this patient. I have also personally directed, reviewed, and agree with the discharge instructions and disposition. Disposition - Clinical Impression Clinical Impression: COPD (chronic obstructive pulmonary disease) - Patient ED Disposition Is Patient to be Admitted: No Counseled Patient/Family Regarding: Studies Performed, Diagnosis, Need For Followup, Rx Given - Disposition Disposition: Routine/Home Disposition Time: 06:10 Condition: STABLE Prescriptions: Albuterol Sulfate [Proair Hfa] 0.09 mg IH Q6 PRN #1 inh PRN Reason: Shortness Of Breath predniSONE [predniSONE Tab] 60 mg PO QAM #12 tab Instructions: Chronic Obstructive Pulmonary Disease (COPD), Including Emphysema Forms: [employer] (Kiswahili) Print Language: DOMINICAN
[2017-07-02] MEDS ORDERED: Albuterol-Ipratrop 3 mg / 0.5 (3 ml) UD ONE (06:19)
[2017-07-02 06:49] VITALS: BP 149/81; PULSE 94; TEMP 97.8; O2SAT 97
--- NOTE | 2017-07-02 10:44 | CARD ---
APPROVED REPORT EKG Measurement Heart [id number] <Conclusion> Atrial fibrillation Abnormal ECG
== END 2017-07-02 06:51 | disposition home or self-care (01) ==
LOC: H.ER 05:16
DX: J44.9 Chronic obstructive pulmonary disease, unspecified (principal); E05.90 Thyrotoxicosis, unspecified without thyrotoxic crisis or storm; E78.00 Pure hypercholesterolemia, unspecified; F17.200 Nicotine dependence, unspecified, uncomplicated; Z59.0 Homelessness; I11.0 Hypertensive heart disease with heart failure; I25.10 Atherosclerotic heart disease of native coronary artery without angina pectoris; J45.901 Unspecified asthma with (acute) exacerbation; Z79.01 Long term (current) use of anticoagulants; Z79.82 Long term (current) use of aspirin; Z82.49 Family history of ischemic heart disease and other diseases of the circulatory system; Z86.711 Personal history of pulmonary embolism; Z86.73 Personal history of transient ischemic attack (TIA), and cerebral infarction without residual deficits; Z86.718 Personal history of other venous thrombosis and embolism

== ENCOUNTER 2017-07-03 18:32 | Emergency (ER) | payer MEDICAID ==
[2017-07-03 18:33] VITALS: PULSE 84; BMI 37.1
[2017-07-03] MEDS ORDERED: Albuterol-Ipratrop 3 mg / 0.5 (3 ml) UD INH STA ×3 (19:19→20:01)
[2017-07-03] MEDS ORDERED: methylPREDNISolone 125 MG in Sodium Chloride 0.9% 50 ML IVPB ONE (19:20)
[2017-07-03] MEDS ORDERED: Albuterol-Ipratrop 3 mg / 0.5 (3 ml) UD ONE ×2 (19:22→19:36)
--- NOTE | 2017-07-03 19:25 | ED PDOC ---
HPI: SOB/CHF/COPD Time Seen by Provider: 07/03/17 19:01 Chief Complaint (Nursing): Shortness Of Breath Additional Complaint(s): 66 year old undomiciled male presents with complaints of shortness of breath and leg swelling. Shortness of breath for past 3 days, seen here in ED yesterday on 07/02 for similar symptoms. Compliant with his inhalers. No increase in sputum production. Lower extremity edema chronic, right more than left, mild pain in right leg. Takes furosemide daily, no missed doses. He denies fevers, productive cough, chest pain, no nausea, vomiting, abdominal pain, no changes in bowel habits. Patient w/ known bed seeking behavior. PCP: Dr. Reynaldo Solis Past Medical History Vital Signs: Last Vital Signs Temp 97.4 F L 07/03/17 23:50 Pulse 80 07/03/17 23:50 Resp 16 07/03/17 23:50 BP 134/70 07/03/17 23:50 Pulse Ox 96 07/03/17 23:50 - Medical History PMH: Anxiety, Asthma, Atrial Fibrillation, Bronchitis, CAD, Cardia Arrhythmia, CHF, COPD, CVA, Deep Vein Thrombosis, Gastritis, HTN, Hypercholesterolemia, Hyperlipidemia, Hyperthyroidism, Peripheral Edema, Pneumonia, Pulmonary Embolism Denies: Diabetes, HIV, Chronic Kidney Disease - Family History Family History: States: [place], CAD, Diabetes, Hypertension (mother) - Immunization History Hx Tetanus Toxoid Vaccination: No Hx Influenza Vaccination: No Hx Pneumococcal Vaccination: No - Home Medications Home Medications: Ambulatory Orders Medication Instructions Recorded RX: Gabapentin [Neurontin] 300 mg PO BID #30 cap 11/16/16 RX: Aspirin [Aspirin Chewable] 81 mg PO DAILY #30 chew 12/06/16 RX: Colchicine [Mitigare] 0.6 mg PO DAILY #30 capsule 12/06/16 RX: Apixaban [Eliquis] 5 mg PO BID #60 tablet 12/20/16 RX: Losartan Potassium [Cozaar] 100 mg PO DAILY #30 tablet 12/20/16 RX: diltiaZEM CD [Cardizem CD] 240 mg PO DAILY #30 cap 12/20/16 RX: Atorvastatin [Lipitor] 40 mg PO HS tab 01/10/17 RX: Escitalopram [Lexapro] 10 mg PO DAILY tab 01/10/17 RX: Digoxin 0.125 mg PO DAILY 30 Days #30 tab 12/10/17 RX: Albuterol Sulfate [Proair Hfa] 0.09 mg IH Q6H PRN #2 inh 05/22/17 Methylprednisolone [Medrol Dosepak] 4 mg PO ASDIR #1 pkg 06/17/17 RX: Albuterol HFA [Ventolin HFA 90 1 - 2 puff IH Q6 PRN #1 inhaler 06/17/17 mcg/actuation (8 g)] Furosemide [Lasix] 20 mg PO DAILY #10 tab 06/29/17 Albuterol Sulfate [Proair Hfa] 0.09 mg IH Q6 PRN #1 inh 07/02/17 RX: predniSONE [predniSONE Tab] 60 mg PO QAM #12 tab 07/02/17 RX: Albuterol HFA [Ventolin HFA 90 2 puff IH [id number] PRN #1 bottle 07/03/17 mcg/actuation (8 g)] RX: Prednisone 50 mg PO DAILY #4 tab 07/03/17 - Allergies Allergies/Adverse Reactions: Allergies Allergy/AdvReac Type Severity Reaction Status Date / Time Penicillins Allergy RASH Verified 07/03/17 18:36 Review of Systems Constitutional: Negative for: Fever, Chills, Weakness ENT: Negative for: Nose Congestion, Throat Pain Cardiovascular: Negative for: Chest Pain, Palpitations Respiratory: Positive for: Cough, Shortness of Breath, Wheezing Gastrointestinal: Negative for: Nausea, Vomiting, Abdominal Pain, Diarrhea, Constipation Genitourinary Male: Negative for: Dysuria Neurological: Negative for: Weakness, Confusion Physical Exam - Reviewed Vital Signs Reviewed: Yes - Physical Exam Appears: Positive for: Non-toxic Head Exam: Positive for: ATRAUMATIC, NORMAL INSPECTION, NORMOCEPHALIC Skin: Positive for: Normal Color, Warm, DRY Neck: Positive for: Normal, Painless ROM Cardiovascular/Chest: Positive for: Chest Non Tender, Edema (bilateral lower extremity +2), Tachycardia. Negative for: Bradycardia Respiratory: Positive for: Decreased Breath Sounds, Wheezing, Other (cough w/ deep inspiration). Negative for: Rales, Rhonchi, Stridor Gastrointestinal/Abdominal: Positive for: Normal Exam, Bowel Sounds. Negative for: Tenderness, Distended Back: Positive for: Normal Inspection Extremity: Positive for: Pedal Edema, Swelling (right greater than left), Other (erythema, warmth right lower leg only) Neurologic/Psych: Positive for: Alert, casing in line feeder II-XII, Oriented. Negative for: Motor/Sensory Deficits - ECG O2 Sat by Pulse Oximetry: 98 - Progress ED Course And Treament: 66 year old male with known COPD/Asthma here with shortness of breath, mildly tachypneic despite use of albuterol inhaler. Patient appears comfortable upon entry to room, no respiratory distress. --Duoneb x 3 --Solumedrol 125 mg x 1 --Reeval Case d/w Dr. Ram 20:24 --reevaluation, patient reports breathing improved will give another duoneb --given warmth and erythema of right leg, will give levofloxacin 750 mg IV to cover respiratory and skin infxn 2300 :Patient sleeping comfortably in no apparent distress. CXR reviewed. Stable for discharge. Disposition - Clinical Impression Clinical Impression: COPD (chronic obstructive pulmonary disease) - Disposition Referrals: [facility] [Outside] Disposition Time: 00:00 Condition: IMPROVED Prescriptions: RX: Albuterol HFA [Ventolin HFA 90 mcg/actuation (8 g)] 2 puff IH [id number] PRN # 1 bottle PRN Reason: Shortness Of Breath RX: Prednisone 50 mg PO DAILY #4 tab Instructions: Chronic Obstructive Pulmonary Disease (COPD), Including Emphysema Forms: [employer] (Frisian) Print Language: MAORI
[2017-07-03] MEDS ORDERED: levoFLOXacin 750 mg in D5W 750 MG/150 ML BAG IVPB STA (20:39)
[2017-07-03] MEDS ORDERED: levoFLOXacin 750 mg in D5W 750 MG/150 ML BAG IVPB ONE (20:46)
[2017-07-04 00:21] VITALS: BP 134/70; PULSE 80; RESP 16; TEMP 97.4
[2017-07-04 06:28] VITALS: O2SAT 98
--- NOTE | 2017-07-04 08:27 | RAD ---
HISTORY: Shortness of breath COMPARISON: 06/19/2017. FINDINGS: LUNGS: The lungs are well inflated and clear. PLEURA: No significant pleural effusion identified, no pneumothorax apparent. CARDIOVASCULAR: Normal. OSSEOUS STRUCTURES: No significant abnormalities. VISUALIZED UPPER ABDOMEN: Normal. OTHER FINDINGS: None. IMPRESSION: No active pulmonary disease.
== END 2017-07-04 | disposition home or self-care (01) ==
LOC: H.ER 18:32
DX: J44.9 Chronic obstructive pulmonary disease, unspecified (principal); R60.0 Localized edema; F41.9 Anxiety disorder, unspecified; I11.0 Hypertensive heart disease with heart failure; I25.10 Atherosclerotic heart disease of native coronary artery without angina pectoris; I48.91 Unspecified atrial fibrillation; Z79.01 Long term (current) use of anticoagulants; Z79.82 Long term (current) use of aspirin; Z86.711 Personal history of pulmonary embolism; Z86.718 Personal history of other venous thrombosis and embolism; Z82.49 Family history of ischemic heart disease and other diseases of the circulatory system; E78.00 Pure hypercholesterolemia, unspecified; E05.90 Thyrotoxicosis, unspecified without thyrotoxic crisis or storm; Z86.73 Personal history of transient ischemic attack (TIA), and cerebral infarction without residual deficits; Z88.0 Allergy status to penicillin; I50.9 Heart failure, unspecified
CPT/HCPCS: 71045; 94640; 96365; 99284; J2930

== ENCOUNTER 2017-07-06 00:30 | Emergency (ER) | payer MEDICAID ==
[2017-07-06 00:31] VITALS: PULSE 84; BMI 37.1
[2017-07-06 01:07] VITALS: RESP 16
[2017-07-06 01:38] LABS: BASO % 0.6 % (0.0-2.0); EOS % 0.5 % (0.0-4.0); LYMPH # 1.6 K/uL (1.0-4.3); LYMPH % 17.9 % (20.0-40.0); MEAN CELL VOLUME 90.6 fl (80.0-94.0); MEAN CORPUSCULAR HEMOGLOBIN 30.3 pg (27.0-31.0); MEAN CORPUSCULAR HGB CONC 33.5 g/dL (33.0-37.0); MEAN PLATELET VOLUME 9.7 fl (7.2-11.7); MONO # 0.6 K/uL (0.0-0.8); MONO % 7.2 % (0.0-10.0); NEUT # 6.6 K/uL (1.8-7.0); NEUT % 73.8 % (50.0-75.0); NRBC % 0.1 % (0.0-0.0); RBC 4.3 Mil/uL (4.40-5.90); RED CELL DISTRIBUTION WIDTH 16.2 % (11.5-14.5); WHITE BLOOD COUNT 8.9 K/uL (4.8-10.8)
[2017-07-06 02:03] LABS: B-TYPE NATRIURETIC PEPTIDE 534 pg/ml (0-900)
[2017-07-06 02:08] LABS: ALBUMIN 2.9 g/dL (3.5-5.0); ALT/SGPT 42 U/L (21-72); AST/SGOT 18 U/L (17-59); BLOOD UREA NITROGEN 35 mg/dl (9-20); CALCIUM 10.9 mg/dL (8.4-10.2); GFR AFRICAN-AMERICAN > 60; GFR NON-AFRICAN AMERICAN 56
--- NOTE | 2017-07-06 02:13 | ED PDOC ---
HPI: Chest Pain Time Seen by Provider: 07/06/17 01:01 Chief Complaint (Nursing): Chest Pain Chief Complaint (Provider): Chest pain History Per: Patient History/Exam Limitations: no limitations Onset/Duration Of Symptoms: Days Current Symptoms Are (Timing): Still Present Quality: "Pain" Additional History Per: Patient Additional Complaint(s): 66yo male, presents to ED with complaints of chest pain earlier today, lasting 20 minutes. He denies any trauma or injury, or radiation of the pain. Patient denies any fever, chills, shortness of breath, or abdominal pain. He offers no other medical complaints. PMD: Maricruz Solis Past Medical History Reviewed: Historical Data, Nursing Documentation, Vital Signs Vital Signs: Last Vital Signs Temp 97.6 F 07/06/17 01:06 Pulse 93 H 07/06/17 05:04 Resp 16 07/06/17 03:47 BP 143/100 H 07/06/17 03:47 Pulse Ox 98 07/06/17 05:04 - Medical History PMH: Anxiety, Asthma, Atrial Fibrillation, Bronchitis, CAD, Cardia Arrhythmia, CHF, COPD, CVA, Deep Vein Thrombosis, Gastritis, HTN, Hypercholesterolemia, Hyperlipidemia, Hyperthyroidism, Peripheral Edema, Pneumonia, Pulmonary Embolism Denies: Diabetes, HIV, Chronic Kidney Disease - Surgical History Surgical History: No Surg Hx - Family History Family History: States: [place], CAD, Diabetes, Hypertension (mother) - Immunization History Hx Tetanus Toxoid Vaccination: No Hx Influenza Vaccination: No Hx Pneumococcal Vaccination: No - Home Medications Home Medications: Ambulatory Orders Medication Instructions Recorded Gabapentin [Neurontin] 300 mg PO BID #30 cap 11/16/16 Aspirin [Aspirin Chewable] 81 mg PO DAILY #30 chew 12/06/16 Colchicine [Mitigare] 0.6 mg PO DAILY #30 capsule 12/06/16 Apixaban [Eliquis] 5 mg PO BID #60 tablet 12/20/16 Losartan Potassium [Cozaar] 100 mg PO DAILY #30 tablet 12/20/16 diltiaZEM CD [Cardizem CD] 240 mg PO DAILY #30 cap 12/20/16 Atorvastatin [Lipitor] 40 mg PO HS tab 01/10/17 Escitalopram [Lexapro] 10 mg PO DAILY tab 01/10/17 Digoxin 0.125 mg PO DAILY 30 Days #30 tab 01/16/17 Albuterol Sulfate [Proair Hfa] 0.09 mg IH Q6H PRN #2 inh 05/22/17 Albuterol HFA [Ventolin HFA 90 1 - 2 puff IH Q6 PRN #1 inhaler 06/17/17 mcg/actuation (8 g)] Methylprednisolone [Medrol Dosepak] 4 mg PO ASDIR #1 pkg 06/17/17 Furosemide [Lasix] 20 mg PO DAILY #10 tab 06/29/17 Albuterol Sulfate [Proair Hfa] 0.09 mg IH Q6 PRN #1 inh 07/02/17 predniSONE [predniSONE Tab] 60 mg PO QAM #12 tab 07/02/17 Albuterol HFA [Ventolin HFA 90 2 puff IH [id number] PRN #1 bottle 07/03/17 mcg/actuation (8 g)] Prednisone 50 mg PO DAILY #4 tab 07/03/17 - Allergies Allergies/Adverse Reactions: Allergies Allergy/AdvReac Type Severity Reaction Status Date / Time Penicillins Allergy RASH Verified 07/03/17 18:36 Review of Systems ROS Statement: Except As Marked, All Systems Reviewed And Found Negative Constitutional: Negative for: Fever, Chills Cardiovascular: Positive for: Chest Pain Respiratory: Negative for: Shortness of Breath Gastrointestinal: Negative for: Abdominal Pain Physical Exam - Reviewed Nursing Documentation Reviewed: Yes Vital Signs Reviewed: Yes - Physical Exam Appears: Positive for: Non-toxic, No Acute Distress Head Exam: Positive for: ATRAUMATIC, NORMAL INSPECTION, NORMOCEPHALIC Skin: Positive for: Normal Color Eye Exam: Positive for: Normal appearance Neck: Positive for: Supple Cardiovascular/Chest: Positive for: Regular Rate, Rhythm, Chest Non Tender. Negative for: Murmur Respiratory: Positive for: Normal Breath Sounds. Negative for: Wheezing Gastrointestinal/Abdominal: Positive for: Normal Exam, Soft. Negative for: Tenderness Extremity: Positive for: Normal ROM. Negative for: Pedal Edema Neurologic/Psych: Positive for: Alert, Oriented - Laboratory Results Result Diagrams: 07/06/17 01:25 07/06/17 01:25 - ECG ECG: Positive for: Interpreted By Me, Viewed By Me ECG Rhythm: Positive for: Atrial Fibrillation Rate: 93 (00:36) O2 Sat by Pulse Oximetry: 98 (RA) Pulse Ox Interpretation: Normal Medical Decision Making Medical Decision Making: Impression: 66yo male with chest pain Plan: -- Labs -- CXR -- EKG -- UDS Progress: 0503 Labs reviewed and no clinically significant abnormalities noted. Troponin and BNP both within normal limits. Omar reports feeling much better. Stable for discharge home. Scribe Attestation: Documented by Jennifer Durand, acting as a scribe for Huseyin Peters MD Provider Attestation: All medical record entries made by the Scribe were at my direction and personally dictated by me. I have reviewed the chart and agree that the record accurately reflects my personal performance of the history, physical exam, medical decision making, and the department course for this patient. I have also personally directed, reviewed, and agree with the discharge instructions and disposition. Disposition - Clinical Impression Clinical Impression: Chest pain - Disposition Referrals: Maricruz Solis MD [Primary Care Provider] - Disposition: Routine/Home Disposition Time: 05:03 Condition: STABLE Instructions: Chest Pain That Is Not Caused by the Heart (DC) Forms: [employer] (Nauruan) Print Language: IRISH
[2017-07-06 05:52] VITALS: BP 146/91; PULSE 86; TEMP 97.8; O2SAT 96
--- NOTE | 2017-07-06 17:15 | CARD ---
APPROVED REPORT EKG Measurement Heart [id number] <Conclusion> Atrial fibrillation Abnormal ECG
== END 2017-07-06 05:41 | disposition home or self-care (01) ==
LOC: H.ER 00:30
DX: R07.89 Other chest pain (principal); E05.90 Thyrotoxicosis, unspecified without thyrotoxic crisis or storm; E78.00 Pure hypercholesterolemia, unspecified; F41.9 Anxiety disorder, unspecified; I11.0 Hypertensive heart disease with heart failure; I25.10 Atherosclerotic heart disease of native coronary artery without angina pectoris; I48.91 Unspecified atrial fibrillation; I50.9 Heart failure, unspecified; J44.9 Chronic obstructive pulmonary disease, unspecified; Z79.01 Long term (current) use of anticoagulants; Z79.82 Long term (current) use of aspirin; Z86.711 Personal history of pulmonary embolism; Z86.718 Personal history of other venous thrombosis and embolism; Z86.73 Personal history of transient ischemic attack (TIA), and cerebral infarction without residual deficits; Z88.0 Allergy status to penicillin

== ENCOUNTER 2017-07-08 02:26 | Emergency (ER) | payer MEDICAID ==
[2017-07-08 02:26] VITALS: PULSE 84; BMI 37.1
[2017-07-08 02:39] VITALS: TEMP 98
[2017-07-08] MEDS ORDERED: Albuterol-Ipratrop 3 mg / 0.5 (3 ml) UD INH STA ×2 (03:12)
--- NOTE | 2017-07-08 03:59 | ED PDOC ---
HPI: Asthma Time Seen by Provider: 07/08/17 03:02 Chief Complaint (Nursing): Shortness Of Breath Chief Complaint (Provider): Asthma History Per: Patient History/Exam Limitations: no limitations Onset/Duration Of Symptoms: Days (1) Current Symptoms Are (Timing): Still Present Precipitating Factors: Weather Change Additional Complaint(s): 66 year old male presents to ED with complaints of COPD exacerbation since yesterday and has a past medical history of COPD, HTN, and AFIB. Patient notes exacerbation is often triggered by changes in temperature. (-) fever, chills, chest pain, or SOB. (+) non-productive cough. PCP: None Past Medical History Reviewed: Historical Data, Nursing Documentation, Vital Signs Vital Signs: Last Vital Signs Temp 98 F 07/08/17 02:37 Pulse 102 H 07/08/17 02:37 Resp 18 07/08/17 03:00 BP 160/96 H 07/08/17 02:37 Pulse Ox 98 07/08/17 03:00 - Medical History PMH: Anxiety, Asthma, Atrial Fibrillation, Bronchitis, CAD, Cardia Arrhythmia, CHF, COPD, CVA, Deep Vein Thrombosis, Gastritis, HTN, Hypercholesterolemia, Hyperlipidemia, Hyperthyroidism, Peripheral Edema, Pneumonia, Pulmonary Embolism Denies: Diabetes, HIV, Chronic Kidney Disease - Family History Family History: States: [place], CAD, Diabetes, Hypertension (mother) - Immunization History Hx Tetanus Toxoid Vaccination: No Hx Influenza Vaccination: No Hx Pneumococcal Vaccination: No - Home Medications Home Medications: Ambulatory Orders Medication Instructions Recorded Gabapentin [Neurontin] 300 mg PO BID #30 cap 11/16/16 Aspirin [Aspirin Chewable] 81 mg PO DAILY #30 chew 12/06/16 Colchicine [Mitigare] 0.6 mg PO DAILY #30 capsule 12/06/16 Apixaban [Eliquis] 5 mg PO BID #60 tablet 12/20/16 Losartan Potassium [Cozaar] 100 mg PO DAILY #30 tablet 12/20/16 [id number] CD [Cardizem CD] 240 mg PO DAILY #30 cap 12/20/16 Atorvastatin [Lipitor] 40 mg PO HS tab 01/10/17 Escitalopram [Lexapro] 10 mg PO DAILY tab 01/10/17 Digoxin 0.125 mg PO DAILY 30 Days #30 tab 01/16/17 Albuterol Sulfate [Proair Hfa] 0.09 mg IH Q6H PRN #2 inh 05/22/17 Albuterol HFA [Ventolin HFA 90 1 - 2 puff IH Q6 PRN #1 inhaler 06/17/17 mcg/actuation (8 g)] Methylprednisolone [Medrol Dosepak] 4 mg PO ASDIR #1 pkg 06/17/17 Furosemide [Lasix] 20 mg PO DAILY #10 tab 06/29/17 Albuterol Sulfate [Proair Hfa] 0.09 mg IH Q6 PRN #1 inh 07/02/17 predniSONE [predniSONE Tab] 60 mg PO QAM #12 tab 07/02/17 Albuterol HFA [Ventolin HFA 90 2 puff IH [id number] PRN #1 bottle 07/03/17 mcg/actuation (8 g)] Prednisone 50 mg PO DAILY #4 tab 07/03/17 predniSONE [predniSONE Tab] 60 mg PO DAILY #9 tab 07/08/17 - Allergies Allergies/Adverse Reactions: Allergies Allergy/AdvReac Type Severity Reaction Status Date / Time Penicillins Allergy RASH Verified 07/08/17 02:37 Review of Systems ROS Statement: Except As Marked, All Systems Reviewed And Found Negative Constitutional: Negative for: Fever, Chills Cardiovascular: Negative for: Chest Pain Respiratory: Positive for: Cough. Negative for: Shortness of Breath, Sputum Physical Exam - Reviewed Nursing Documentation Reviewed: Yes Vital Signs Reviewed: Yes - Physical Exam Appears: Positive for: Well, Non-toxic, No Acute Distress Skin: Positive for: Normal Color Eye Exam: Positive for: Normal appearance Cardiovascular/Chest: Positive for: Irregularly Irregular (chronic) Respiratory: Positive for: Wheezing (mild expiratory wheeze). Negative for: Normal Breath Sounds, Respiratory Distress Neurologic/Psych: Positive for: Alert, Oriented. Negative for: Motor/Sensory Deficits - ECG ECG: Positive for: Interpreted By Me, Viewed By Me ECG Rhythm: Positive for: Atrial Fibrillation Rate: 95 O2 Sat by Pulse Oximetry: 98 (RA) Pulse Ox Interpretation: Normal Medical Decision Making Medical Decision Makin Initial impression: 66 year old male with history of asthma and AFIB presenting with mild asthma exacerbation unrelieved by Ventolin Initial plan: No concern for PNA, PTX, ACS, or pulmonary embolism. EKG shows chronic AFIB with no RVR. Will treat with duonebs and steroids. * Duonebs 3mL INH x2 * Prednisone 40mg PO * Peak flow pre/post Tx * Re-eval 0547 Upon re-evaluation patient notes improvement in symptoms. Re-examination shows patient is no longer wheezing. Patient is stable for discharge home Dx: COPD exacerbation Scribe Attestation: Documented by Whitley Roberto acting as a scribe for Niraj Hernandez MD. Scribe Attestation: All medical record entries made by the Scribe were at my direction and personally dictated by me. I have reviewed the chart and agree that the record accurately reflects my personal performance of the history, physical exam, medical decision making, and the department course for this patient. I have also personally directed, reviewed, and agree with the discharge instructions and disposition. Disposition - Clinical Impression Clinical Impression: COPD with acute exacerbation - Patient ED Disposition Is Patient to be Admitted: No - Disposition Referrals: [facility] [Outside] Disposition: Routine/Home Disposition Time: 05:45 Condition: IMPROVED Prescriptions: predniSONE [predniSONE Tab] 60 mg PO DAILY #9 tab Instructions: Exacerbation of COPD Forms: [facility] (Mauritanian) Print Language: SERBIAN
[2017-07-08 05:50] VITALS: BP 142/86; RESP 17
[2017-07-08 05:57] VITALS: PULSE 95; O2SAT 98
== END 2017-07-08 06:23 | disposition home or self-care (01) ==
LOC: H.ER 02:26
DX: J44.1 Chronic obstructive pulmonary disease with (acute) exacerbation (principal); E05.90 Thyrotoxicosis, unspecified without thyrotoxic crisis or storm; E78.00 Pure hypercholesterolemia, unspecified; F41.9 Anxiety disorder, unspecified; I11.0 Hypertensive heart disease with heart failure; I50.9 Heart failure, unspecified; Z79.01 Long term (current) use of anticoagulants; Z79.82 Long term (current) use of aspirin; Z86.711 Personal history of pulmonary embolism; Z86.718 Personal history of other venous thrombosis and embolism; Z86.73 Personal history of transient ischemic attack (TIA), and cerebral infarction without residual deficits; Z88.0 Allergy status to penicillin

== ENCOUNTER 2017-07-09 17:48 | Emergency (ER) | payer MEDICAID ==
[2017-07-09 17:48] VITALS: PULSE 84; BMI 37.1
[2017-07-09 18:44] VITALS: RESP 16; O2SAT 98
--- NOTE | 2017-07-09 20:44 | ED PDOC ---
HPI: SOB/CHF/COPD Time Seen by Provider: 07/09/17 18:05 Chief Complaint (Nursing): Shortness Of Breath Chief Complaint (Provider): shortness of breath History Per: Patient History/Exam Limitations: no limitations Onset/Duration Of Symptoms: Days (1x) Current Symptoms Are (Timing): Still Present Current Respiratory Medications: Albuterol Associated Symptoms: denies: Fever, Chest Pain Additional Complaint(s): 66 year old undomiciled male is well known to the ED and noncompliant to outpatient management is complaining of shortness of breath onset for one day. Reports of COPD exacerbation and states he has not had no relief with Albuterol inhaler. Denies chest pain, fever, phlegm, or increased leg swelling. PMD: No Family Provider Past Medical History Reviewed: Historical Data, Nursing Documentation, Vital Signs Vital Signs: Last Vital Signs Temp 97.8 F 07/09/17 18:42 Pulse 63 07/09/17 20:50 Resp 16 07/09/17 18:44 BP 146/85 07/09/17 18:42 Pulse Ox 98 07/09/17 20:50 - Medical History PMH: Anxiety, Asthma, Atrial Fibrillation, Bronchitis, CAD, Cardia Arrhythmia, CHF, COPD, CVA, Deep Vein Thrombosis, Gastritis, HTN, Hypercholesterolemia, Hyperlipidemia, Hyperthyroidism, Peripheral Edema, Pneumonia, Pulmonary Embolism Denies: Diabetes, HIV, Chronic Kidney Disease - Family History Family History: States: [place], CAD, Diabetes, Hypertension (mother) - Social History Current smoker - smoking cessation education provided: Yes (Light Smoker < 10 Cigarettes Daily) Alcohol: Occasional Drugs: Denies - Immunization History Hx Tetanus Toxoid Vaccination: No Hx Influenza Vaccination: No Hx Pneumococcal Vaccination: No - Home Medications Home Medications: Ambulatory Orders Medication Instructions Recorded Gabapentin [Neurontin] 300 mg PO BID #30 cap 11/16/16 Aspirin [Aspirin Chewable] 81 mg PO DAILY #30 chew 12/06/16 Colchicine [Mitigare] 0.6 mg PO DAILY #30 capsule 12/06/16 Apixaban [Eliquis] 5 mg PO BID #60 tablet 12/20/16 Losartan Potassium [Cozaar] 100 mg PO DAILY #30 tablet 12/20/16 diltiaZEM CD [Cardizem CD] 240 mg PO DAILY #30 cap 12/20/16 Atorvastatin [Lipitor] 40 mg PO HS tab 01/10/17 Escitalopram [Lexapro] 10 mg PO DAILY tab 01/10/17 Digoxin 0.125 mg PO DAILY 30 Days #30 tab 01/16/17 Albuterol Sulfate [Proair Hfa] 0.09 mg IH Q6H PRN #2 inh 05/22/17 Albuterol HFA [Ventolin HFA 90 1 - 2 puff IH Q6 PRN #1 inhaler 06/17/17 mcg/actuation (8 g)] Methylprednisolone [Medrol Dosepak] 4 mg PO ASDIR #1 pkg 06/17/17 Furosemide [Lasix] 20 mg PO DAILY #10 tab 06/29/17 Albuterol Sulfate [Proair Hfa] 0.09 mg IH Q6 PRN #1 inh 07/02/17 predniSONE [predniSONE Tab] 60 mg PO QAM #12 tab 07/02/17 Albuterol HFA [Ventolin HFA 90 2 puff IH [id number] PRN #1 bottle 07/03/17 mcg/actuation (8 g)] Prednisone 50 mg PO DAILY #4 tab 07/03/17 predniSONE [predniSONE Tab] 60 mg PO DAILY #9 tab 07/08/17 - Allergies Allergies/Adverse Reactions: Allergies Allergy/AdvReac Type Severity Reaction Status Date / Time Penicillins Allergy RASH Verified 07/08/17 02:37 Review of Systems ROS Statement: Except As Marked, All Systems Reviewed And Found Negative (As per HPI, otherwise negative) Constitutional: Negative for: Fever Cardiovascular: Negative for: Chest Pain Respiratory: Positive for: Shortness of Breath. Negative for: Sputum Musculoskeletal: Negative for: Other (increased leg swelling) Physical Exam - Reviewed Nursing Documentation Reviewed: Yes Vital Signs Reviewed: Yes - Physical Exam Appears: Positive for: Non-toxic, No Acute Distress Head Exam: Positive for: ATRAUMATIC, NORMOCEPHALIC Skin: Positive for: Warm, Dry Eye Exam: Positive for: EOMI, PERRL ENT: Positive for: Pharynx Is (clear) Neck: Positive for: Painless ROM, Supple Cardiovascular/Chest: Positive for: Regular Rate, Rhythm. Negative for: Murmur Respiratory: Positive for: Wheezing (occasional). Negative for: Accessory Muscle Use, Rales, Respiratory Distress Gastrointestinal/Abdominal: Positive for: Soft. Negative for: Tenderness Back: Positive for: Normal Inspection. Negative for: Decreased ROM Extremity: Positive for: Pedal Edema (non pitting, chronic) Lymphatic: Negative for: Adenopathy Neurologic/Psych: Positive for: Alert. Negative for: Motor/Sensory Deficits - ECG ECG Rhythm: Positive for: Normal QRS, Normal ST Segment, Atrial Fibrillation Rate: 63 O2 Sat by Pulse Oximetry: 98 (RA) Pulse Ox Interpretation: Normal Medical Decision Making Medical Decision Making: Time: 2032 Initial Impression: mild COPD exacerbation Initial Plan: --Chest two views --Reevaluation CXR with no acute disease 2300 Pt stable. Scribe Attestation: Documented by Hunter Estrella, acting as a scribe for Mery Isabel MD Provider Scribe Attestation: All medical record entries made by the Scribe were at my direction and personally dictated by me. I have reviewed the chart and agree that the record accurately reflects my personal performance of the history, physical exam, medical decision making, and the department course for this patient. I have also personally directed, reviewed, and agree with the discharge instructions and disposition. Disposition - Clinical Impression Clinical Impression: COPD exacerbation - Disposition Referrals: [facility] [Outside] - 07/11/17 Disposition: Routine/Home Disposition Time: 23:00 Condition: IMPROVED Instructions: Chronic Obstructive Pulmonary Disease (COPD), Including Emphysema Forms: [employer] (Syriac)
[2017-07-09 23:22] VITALS: BP 165/98; PULSE 87; TEMP 98.5
--- NOTE | 2017-07-10 09:32 | RAD ---
HISTORY: cough COMPARISON: Comparison is made with 07/03/2017 TECHNIQUE: Chest PA and lateral FINDINGS: LUNGS: No active pulmonary disease. PLEURA: No significant pleural effusion identified. No pneumothorax apparent. CARDIOVASCULAR: Normal. OSSEOUS STRUCTURES: No significant abnormalities. VISUALIZED UPPER ABDOMEN: Normal. OTHER FINDINGS: None. IMPRESSION: No active disease.
== END 2017-07-09 23:20 | disposition home or self-care (01) ==
LOC: H.ER 17:48
DX: J44.1 Chronic obstructive pulmonary disease with (acute) exacerbation (principal); F17.210 Nicotine dependence, cigarettes, uncomplicated; I25.10 Atherosclerotic heart disease of native coronary artery without angina pectoris; Z79.01 Long term (current) use of anticoagulants; Z79.82 Long term (current) use of aspirin; Z82.49 Family history of ischemic heart disease and other diseases of the circulatory system; Z86.711 Personal history of pulmonary embolism; Z86.718 Personal history of other venous thrombosis and embolism; Z86.73 Personal history of transient ischemic attack (TIA), and cerebral infarction without residual deficits; Z88.0 Allergy status to penicillin; E05.90 Thyrotoxicosis, unspecified without thyrotoxic crisis or storm; E78.00 Pure hypercholesterolemia, unspecified; I11.0 Hypertensive heart disease with heart failure

== ENCOUNTER 2017-07-10 13:37 | Emergency (ER) | payer MEDICAID ==
[2017-07-10 13:38] VITALS: PULSE 84; BMI 37.1
[2017-07-10 13:48] VITALS: BP 132/69; PULSE 88
[2017-07-10] MEDS ORDERED: Albuterol-Ipratrop 3 mg / 0.5 (3 ml) UD IH STA ×2 (14:04→17:04)
--- NOTE | 2017-07-10 14:07 | ED PDOC ---
HPI: SOB/CHF/COPD Time Seen by Provider: 07/10/17 13:55 Chief Complaint (Nursing): Shortness Of Breath History Per: Patient Onset/Duration Of Symptoms: Days (1) Current Symptoms Are (Timing): Still Present Severity: Mild Additional Complaint(s): SOB, wheezing and nonproductive cough x 1 day. No fever or chest pain. Past Medical History Vital Signs: Last Vital Signs Temp 97.9 F 07/10/17 13:40 Pulse 88 07/10/17 13:40 Resp 20 07/10/17 15:07 BP 132/69 07/10/17 13:40 Pulse Ox 98 07/10/17 16:01 - Medical History PMH: Anxiety, Asthma, Atrial Fibrillation, Bronchitis, CAD, Cardia Arrhythmia, CHF, COPD, CVA, Deep Vein Thrombosis, Gastritis, HTN, Hypercholesterolemia, Hyperlipidemia, Hyperthyroidism, Peripheral Edema, Pneumonia, Pulmonary Embolism Denies: Diabetes, HIV, Chronic Kidney Disease - Family History Family History: States: [place], CAD, Diabetes, Hypertension (mother) - Immunization History Hx Tetanus Toxoid Vaccination: No Hx Influenza Vaccination: No Hx Pneumococcal Vaccination: No - Home Medications Home Medications: Ambulatory Orders Medication Instructions Recorded Gabapentin [Neurontin] 300 mg PO BID #30 cap 11/16/16 Aspirin [Aspirin Chewable] 81 mg PO DAILY #30 chew 12/06/16 Colchicine [Mitigare] 0.6 mg PO DAILY #30 capsule 12/06/16 Apixaban [Eliquis] 5 mg PO BID #60 tablet 12/20/16 Losartan Potassium [Cozaar] 100 mg PO DAILY #30 tablet 12/20/16 [id number] CD [Cardizem CD] 240 mg PO DAILY #30 cap 12/20/16 Atorvastatin [Lipitor] 40 mg PO HS tab 01/10/17 Escitalopram [Lexapro] 10 mg PO DAILY tab 01/10/17 Digoxin 0.125 mg PO DAILY 30 Days #30 tab 01/16/17 Albuterol Sulfate [Proair Hfa] 0.09 mg IH Q6H PRN #2 inh 05/22/17 Albuterol HFA [Ventolin HFA 90 1 - 2 puff IH Q6 PRN #1 inhaler 06/17/17 mcg/actuation (8 g)] Methylprednisolone [Medrol Dosepak] 4 mg PO ASDIR #1 pkg 06/17/17 Furosemide [Lasix] 20 mg PO DAILY #10 tab 06/29/17 Albuterol Sulfate [Proair Hfa] 0.09 mg IH Q6 PRN #1 inh 07/02/17 predniSONE [predniSONE Tab] 60 mg PO QAM #12 tab 07/02/17 Albuterol HFA [Ventolin HFA 90 2 puff IH [id number] PRN #1 bottle 07/03/17 mcg/actuation (8 g)] Prednisone 50 mg PO DAILY #4 tab 07/03/17 predniSONE [predniSONE Tab] 60 mg PO DAILY #9 tab 07/08/17 Albuterol HFA [Ventolin HFA 90 2 puff IH Q4H #1 puff 07/10/17 mcg/actuation (8 g)] - Allergies Allergies/Adverse Reactions: Allergies Allergy/AdvReac Type Severity Reaction Status Date / Time Penicillins Allergy RASH Verified 07/08/17 02:37 Review of Systems ROS Statement: Except As Marked, All Systems Reviewed And Found Negative Constitutional: Negative for: Fever Cardiovascular: Negative for: Chest Pain Respiratory: Positive for: Cough, Shortness of Breath, Wheezing Musculoskeletal: Negative for: Back Pain Physical Exam - Reviewed Nursing Documentation Reviewed: Yes Vital Signs Reviewed: Yes - Physical Exam Appears: Positive for: Non-toxic, No Acute Distress Head Exam: Positive for: ATRAUMATIC, NORMAL INSPECTION, NORMOCEPHALIC Skin: Positive for: Normal Color, Warm, DRY Eye Exam: Positive for: EOMI, Normal appearance, PERRL ENT: Positive for: Normal ENT Inspection Neck: Positive for: Normal, Painless ROM Cardiovascular/Chest: Positive for: Regular Rate, Rhythm Respiratory: Positive for: Wheezing. Negative for: Accessory Muscle Use, Rhonchi, Respiratory Distress Gastrointestinal/Abdominal: Positive for: Normal Exam, Soft Back: Positive for: Normal Inspection Extremity: Positive for: Normal ROM. Negative for: Calf Tenderness Neurologic/Psych: Positive for: Alert, Oriented - ECG O2 Sat by Pulse Oximetry: 98 Medical Decision Making Medical Decision Making: Time: 1406 Plan: -- CXR -- Albuterol 3 ml IH -- Peak Flow Pre/Post Tx Time: 1457 CXR RESULTS FINDINGS: LUNGS: No active pulmonary disease. PLEURA: No significant pleural effusion identified. No pneumothorax apparent. CARDIOVASCULAR: Normal. OSSEOUS STRUCTURES: No significant abnormalities. VISUALIZED UPPER ABDOMEN: Normal. OTHER FINDINGS: None. IMPRESSION: No radiographic evidence of pneumonia Scribe Attestation: Documented by Terrie Lucia, acting as a scribe for Dr. Davidson Sanon MD. Provider Scribe Attestation: All medical record entries made by the Scribe were at my direction and personally dictated by me. I have reviewed the chart and agree that the record accurately reflects my personal performance of the history, physical exam, medical decision making, and the department course for this patient. I have also personally directed, reviewed, and agree with the discharge instructions and disposition. Disposition - Clinical Impression Clinical Impression: Asthma exacerbation - Patient ED Disposition Is Patient to be Admitted: No Counseled Patient/Family Regarding: Studies Performed, Diagnosis, Need For Followup, Rx Given - Disposition Referrals: [facility] [Outside] Disposition: Routine/Home Disposition Time: 16:57 Condition: FAIR Prescriptions: Albuterol HFA [Ventolin HFA 90 mcg/actuation (8 g)] 2 puff IH Q4H #1 puff Instructions: Asthma in Adults Forms: [facility] (Palauan)
[2017-07-10 14:08] VITALS: TEMP 97.9
[2017-07-10] MEDS ORDERED: Albuterol-Ipratrop 3 mg / 0.5 (3 ml) UD ONE ×2 (14:16→17:05)
--- NOTE | 2017-07-10 14:58 | RAD ---
HISTORY: cough COMPARISON: Comparison is made with 07/10/2027 TECHNIQUE: Chest PA and lateral FINDINGS: LUNGS: No active pulmonary disease. PLEURA: No significant pleural effusion identified. No pneumothorax apparent. CARDIOVASCULAR: Normal. OSSEOUS STRUCTURES: No significant abnormalities. VISUALIZED UPPER ABDOMEN: Normal. OTHER FINDINGS: None. IMPRESSION: No radiographic evidence of pneumonia
[2017-07-10 17:45] VITALS: RESP 18; O2SAT 99
== END 2017-07-10 17:45 | disposition home or self-care (01) ==
LOC: H.ER 13:37
DX: J45.901 Unspecified asthma with (acute) exacerbation (principal)

== ENCOUNTER 2017-10-02 18:55 | Emergency (ER) | payer MEDICAID ==
[2017-10-02 18:55] VITALS: PULSE 72; BMI 34.9
[2017-10-02 19:03] VITALS: RESP 18
[2017-10-02] MEDS ORDERED: Albuterol-Ipratrop 3 mg / 0.5 (3 ml) UD INH STA (19:32)
[2017-10-02] MEDS ORDERED: Albuterol-Ipratrop 3 mg / 0.5 (3 ml) UD ONE (19:39)
--- NOTE | 2017-10-02 19:56 | ED PDOC ---
Lower Extremity Pain/Injury <Carlos Berumen III - Last Filed: 10/03/17 00:30> Chief Complaint (Provider): BL Lower extremity pain and swelling History Per: Patient History/Exam Limitations: language barrier (italian) Onset/Duration Of Symptoms: Days (3) Current Symptoms Are (Timing): Still Present Severity: Moderate Pain Scale Rating Of: 8 Legs Front+Back: 1 - BL LE pain, edema Additional Complaint(s): 67 yo M with pmhx of afib, DM, HTN, asthma, and dyslipidemia presents to the ED with 2-3 day history of bilateral posterior thigh pain. Pain presented suddenly while he was seated in a chair, not on a toilet. Pain is sharp, radiates to bilateral lower extremity and rated to be 8-9/10. Pain has been consistent and non alleviated. he denies taking any meds to alleviate his pain. He reports that he also noticed bilateral leg swelling soon after the pain began. He reports ability to ambulate, feel and move his toes. He denies history of similar symptoms, DVT, PE, coagulopathies or recent trauma. He reports SOB: which also began when symptoms presented and progressively worsened. He reports having to use his albuterol inhaler once more during the day. He denies recent respiratory infection, travel, or noncompliance with his medication. ROS: Denies CP/N/V PMD: Dr. Solis. pmhx of afib, DM, HTN, asthma, and dyslipidemia Surg: none Fam: dm, htn soc: smokes 2 cigarettes/day; denies alcohol or illicit drugs Reports allergy to cocaine - Hip Description Of Injury: Other (While sitting) - Knee Alleviating Factor(s): Elevation - Risk Factors DVT Risk Factors: Neg: Decreased Mobility, Decreased Activity, Extremity Immobiliztion, Extremity Fractured, Extremity Paralyzed, Major Surgery, Active Cancer, History Of DVT, History Of PE, CHF <Hayden Chavez - Last Filed: 10/03/17 06:01> Chief Complaint (Nursing): Lower Extremity Problem/Injury Supervising Attending Note - Attestation: I have personally seen and examined this patient.: Yes I have fully participated in the care of the patient.: Yes I have reviewed all pertinent clinical information, including history, physical exam and plan: Yes - Notes: Notes:: pt seen and examined w resident agree w findings prior visits reviewed revealing extensive workup w LE duplex and CTA chest within last several weeks trop here neg, UDS negative repeat trop overnight if neg hopeful for discharge, endorse dr lopez [id number] <Carlos Berumen III - Last Filed: 10/03/17 00:30> Past Medical History Vital Signs: Last Vital Signs Temp 98.0 F 10/02/17 23:06 Pulse 78 10/02/17 23:06 Resp 18 10/02/17 23:06 BP 143/78 10/02/17 23:06 Pulse Ox 100 10/02/17 23:06 <Carlos Berumen III - Last Filed: 10/03/17 00:30> Vital Signs: Last Vital Signs Temp 98.3 F 10/02/17 18:59 Pulse 84 10/02/17 18:59 Resp 18 10/02/17 18:59 BP 178/75 H 10/02/17 18:59 Pulse Ox 99 10/02/17 18:59 - Medical History PMH: Anxiety, Asthma, Atrial Fibrillation, Bronchitis, CAD, Cardia Arrhythmia, CHF, COPD, CVA, Depression, Diabetes, Deep Vein Thrombosis, Gastritis, HTN, Hypercholesterolemia, Hyperlipidemia, Hyperthyroidism, Peripheral Edema, Pneumonia, Pulmonary Embolism Denies: HIV, Chronic Kidney Disease - Family History Family History: States: [place], CAD, Diabetes, Hypertension (mother) - Immunization History Hx Tetanus Toxoid Vaccination: No Hx Influenza Vaccination: No Hx Pneumococcal Vaccination: No <Hayden Chavez - Last Filed: 10/03/17 06:01> - Home Medications Home Medications: Ambulatory Orders Medication Instructions Recorded Ibuprofen [Motrin Tab] 400 mg PO Q6 PRN tab 08/23/17 guaiFENesin [Mucinex LA] 600 mg PO Q12 tab 08/23/17 Apixaban [Eliquis] 5 mg PO Q12 #60 tablet 08/26/17 Aspirin [Aspirin Chewable] 81 mg PO DAILY #30 chew 08/26/17 Atorvastatin [Lipitor] 40 mg PO DAILY #30 tab 08/26/17 Colchicine [Mitigare] 0.6 mg PO DAILY #30 capsule 08/26/17 Digoxin 0.125 mg PO DAILY 30 Days #30 tab 08/26/17 Gabapentin [Neurontin] 300 mg PO Q12 #60 cap 08/26/17 GlipiZIDE [Glucotrol] 5 mg PO ACB #120 tab 08/26/17 Ipratropium [Atrovent HFA] 1 puff IH Q6 PRN #1 inhaler 08/26/17 Losartan Potassium [Cozaar] 100 mg PO DAILY #30 tablet 08/26/17 Tiotropium [Spiriva] 18 mcg IH DAILY #30 cap 08/26/17 Apixaban [Eliquis] 5 mg PO DAILY 09/13/17 Colchicine 0.6 mg PO DAILY 09/13/17 Gabapentin [Neurontin] 300 mg PO BID 09/13/17 Glimepiride 2 mg PO DAILY 09/13/17 Losartan [Cozaar] 100 mg PO DAILY 09/13/17 Methylprednisolone [Medrol Dose 4 mg PO DAILY #21 mg 09/21/17 Pack (21 tabs)] diltiaZEM CD [Cardizem CD] 300 mg PO DAILY #30 cap 09/21/17 metFORMIN [glucOPHAGE] 500 mg PO BID #60 tab 09/21/17 - Allergies Allergies/Adverse Reactions: Allergies Allergy/AdvReac Type Severity Reaction Status Date / Time Penicillins Allergy RASH Verified 08/23/17 17:13 Wells Criteria for PE - Wells Criteria for Pulmonary Embolism P.E is #1 Diagnosis, or Equally Likely: No Heart Rate >100: No Immobilization at least 3 days;Surgery previous 4 weeks: No Previous, objectively diagnosed PE or DVT: No Hemoptysis: No Malignancy w/treatment within 6 months, or palliative: No Total Score: 0 <Hayden Chavez - Last Filed: 10/03/17 06:01> Review of Systems Constitutional: Negative for: Fever Cardiovascular: Negative for: Chest Pain Respiratory: Positive for: Shortness of Breath, Wheezing Gastrointestinal: Negative for: Nausea, Vomiting, Abdominal Pain Musculoskeletal: Positive for: Leg Pain (bilateral) Neurological: Negative for: Altered Mental Status <Hayden Chavez Last Filed: 10/03/17 06:01> Physical Exam - Reviewed Vital Signs Reviewed: Yes (hypertensive; pt reports taking meds today. likely 2/ 2 pain) - Physical Exam Appears: Positive for: Non-toxic, Uncomfortable Head Exam: Positive for: ATRAUMATIC Eye Exam: Positive for: EOMI Neck: Positive for: Painless ROM Cardiovascular/Chest: Positive for: Irregularly Irregular (Afib). Negative for : Murmur Respiratory: Positive for: Crackles, Wheezing Gastrointestinal/Abdominal: Positive for: Normal Exam, Bowel Sounds, Soft. Negative for: Tenderness Extremity: Positive for: Tenderness, Swelling. Negative for: Calf Tenderness Neurologic/Psych: Positive for: Alert, brick offbearer II-XII, Oriented <Hayden Chavez - Last Filed: 10/03/17 06:01> - Laboratory Results Result Diagrams: 10/02/17 20:20 10/02/17 20:20 <Carlos Berumen III - Last Filed: 10/03/17 00:30> - Laboratory Results Result Diagrams: 10/02/17 20:20 10/02/17 20:20 - ECG ECG: Positive for: Viewed By Me O2 Sat by Pulse Oximetry: 99 - Progress ED Course And Treament: 67 yo M with pmhx of DM, HTN, Asthma and dyslipidemia presents to the ED with BL lower extremity pain with SOB. -CTA chest and venous doppler of lower extremity reviewed from 09/2017 at [place] : w/o PE/DVTa -CXR, EKG, -CBC, BMP, PT, PTT, UTOX -Duoneb + peak flow studies pt saturating well at 99% on room air; not tachypneic or tachycardia 20:48 Pt seen and evaluated at bedside resting comfortable EKG reviewed: afib Saturating well at 99% on RA Repeat BP with large cuff 134/65 23:04 Pt seen and evaluated at bedside resting comforably Vitals stable 01:21 Pending repeat troponin i at 03:30 03:04 Updated lab: positive for cocaine 04:58 repeat troponin negative Pt resting comfortably in bed. 05:57 Labs reviewed d/c home with ER precautions reviewed. Case dw Dr. Berumen and Dr. Chalo Chavez MD PGY2 <Hayden Chavez - Last Filed: 10/03/17 06:01> Disposition <Carlos Berumen III - Last Filed: 10/03/17 00:30> - Patient ED Disposition Is Patient to be Admitted: No - Disposition Disposition: Routine/Home Disposition Time: 06:00 <Hayden Chavez - Last Filed: 10/03/17 06:01> - Clinical Impression Clinical Impression: Lower extremity pain, bilateral, Asthma, Shortness of breath, Cocaine abuse - Disposition Referrals: Maricruz Solis MD [Staff Provider] - Condition: GOOD Additional Instructions: ER precautions reviewed with pt Forms: [employer] (Tanzanian)
[2017-10-02 20:30] LABS: BASO # 0.1 K/uL (0.0-0.2); BASO % 1.1 % (0.0-2.0); EOS # 0.3 K/uL (0.0-0.7); EOS % 3.7 % (0.0-4.0); HEMOGLOBIN 12.7 g/dL (12.0-18.0); LYMPH # 1.1 K/uL (1.0-4.3); LYMPH % 12.1 % (20.0-40.0); MEAN CELL VOLUME 93.9 fl (80.0-94.0); MEAN CORPUSCULAR HEMOGLOBIN 30.2 pg (27.0-31.0); MEAN CORPUSCULAR HGB CONC 32.2 g/dL (33.0-37.0); MEAN PLATELET VOLUME 10.1 fl (7.2-11.7); MONO # 0.8 K/uL (0.0-0.8); MONO % 9.1 % (0.0-10.0); NEUT # 6.5 K/uL (1.8-7.0); RBC 4.22 Mil/uL (4.40-5.90); RED CELL DISTRIBUTION WIDTH 16.5 % (11.5-14.5); WHITE BLOOD COUNT 8.7 K/uL (4.8-10.8)
[2017-10-02 20:35] LABS: INR 1.2; PROTHROMBIN TIME 12.8 Seconds (9.8-13.1)
[2017-10-02 20:38] LABS: PARTIAL THROMBOPLASTIN TIME 33.9 Seconds (25.6-37.1)
[2017-10-02 20:48] LABS: ALB/GLOB RATIO 1.4 (1.0-2.1); ALBUMIN 3.8 g/dL (3.5-5.0); ALT/SGPT 39 U/L (21-72); AST/SGOT 22 U/L (17-59); BLOOD UREA NITROGEN 14 mg/dl (9-20); CALCIUM 11.1 mg/dL (8.4-10.2); GFR NON-AFRICAN AMERICAN 51
[2017-10-02 21:25] LABS: B-TYPE NATRIURETIC PEPTIDE 455 pg/ml (0-900)
[2017-10-03 00:22] LABS: BARBITURATES, UR NEGATIVE (NEGATIVE); BENZODIAZEPINES, UR NEGATIVE (NEGATIVE); OPIATES, UR NEGATIVE (NEGATIVE)
[2017-10-03 00:23] LABS: PHENCYCLIDINE, UR NEGATIVE (NEGATIVE)
[2017-10-03 06:24] VITALS: BP 138/79; PULSE 89; TEMP 98.2; O2SAT 100
--- NOTE | 2017-10-03 08:47 | RAD ---
Date of service: 10/02/2017 HISTORY: SOB COMPARISON: Frontal chest radiograph 09/05/2017. TECHNIQUE: Chest PA and lateral FINDINGS: LUNGS: No active pulmonary disease. PLEURA: No significant pleural effusion identified. No pneumothorax apparent. CARDIOVASCULAR: Normal. OSSEOUS STRUCTURES: No significant abnormalities. VISUALIZED UPPER ABDOMEN: Normal. OTHER FINDINGS: None. IMPRESSION: No interval acute cardiopulmonary disease appreciated.
--- NOTE | 2017-10-03 09:43 | CARD ---
APPROVED REPORT Date of service: 10/02/2017 <Conclusion> Atrial fibrillation Abnormal ECG
== END 2017-10-03 06:24 | disposition home or self-care (01) ==
LOC: H.ER 18:55
DX: M79.606 Pain in leg, unspecified (principal); J45.909 Unspecified asthma, uncomplicated; R06.02 Shortness of breath; F14.10 Cocaine abuse, uncomplicated; E05.90 Thyrotoxicosis, unspecified without thyrotoxic crisis or storm; E11.9 Type 2 diabetes mellitus without complications; E78.00 Pure hypercholesterolemia, unspecified; F32.9 Major depressive disorder, single episode, unspecified; F41.9 Anxiety disorder, unspecified; I11.0 Hypertensive heart disease with heart failure; I25.10 Atherosclerotic heart disease of native coronary artery without angina pectoris; J44.9 Chronic obstructive pulmonary disease, unspecified; Z79.01 Long term (current) use of anticoagulants; Z79.84 Long term (current) use of oral hypoglycemic drugs; Z86.711 Personal history of pulmonary embolism; Z86.73 Personal history of transient ischemic attack (TIA), and cerebral infarction without residual deficits; Z86.718 Personal history of other venous thrombosis and embolism

== ENCOUNTER 2017-10-08 18:01 | Emergency (ER) | payer MEDICAID ==
[2017-10-08 18:02] VITALS: PULSE 72; BMI 34.9
[2017-10-08 18:12] VITALS: TEMP 98
[2017-10-08 19:05] LABS: BASO % 0.7 % (0.0-2.0); EOS # 0.3 K/uL (0.0-0.7); EOS % 4.1 % (0.0-4.0); HEMOGLOBIN 13.1 g/dL (12.0-18.0); LYMPH # 1.2 K/uL (1.0-4.3); LYMPH % 16.1 % (20.0-40.0); MEAN CELL VOLUME 93.4 fl (80.0-94.0); MEAN CORPUSCULAR HEMOGLOBIN 30.2 pg (27.0-31.0); MEAN CORPUSCULAR HGB CONC 32.3 g/dL (33.0-37.0); MEAN PLATELET VOLUME 9.8 fl (7.2-11.7); MONO # 0.7 K/uL (0.0-0.8); MONO % 9.4 % (0.0-10.0); NEUT # 5.2 K/uL (1.8-7.0); NEUT % 69.7 % (50.0-75.0); RBC 4.33 Mil/uL (4.40-5.90); RED CELL DISTRIBUTION WIDTH 16.2 % (11.5-14.5); WHITE BLOOD COUNT 7.5 K/uL (4.8-10.8)
[2017-10-08 19:07] LABS: INR 1.2; PROTHROMBIN TIME 13.1 Seconds (9.8-13.1)
[2017-10-08 19:10] LABS: PARTIAL THROMBOPLASTIN TIME 30.7 Seconds (25.6-37.1)
--- NOTE | 2017-10-08 19:19 | ED PDOC ---
HPI: Chest Pain Time Seen by Provider: 10/08/17 18:25 Chief Complaint (Nursing): Chest Pain Chief Complaint (Provider): Chest Pain and leg swelling History Per: Patient History/Exam Limitations: no limitations Onset/Duration Of Symptoms: Days Current Symptoms Are (Timing): Still Present Additional Complaint(s): Ignacio Soni is a 67 year old male, with a past medical history of A-fib, diabetes, HTN, asthma and dyslipidemia, who presents to the emergency department complaining of chest pain onset today associated with legs swelling. Patient is well known to ER for noncompliance with medications and cocaine abuse. Patient reports ability to ambulate. No further medical complaints. PMD: Maricruz Solis Past Medical History Reviewed: Historical Data, Nursing Documentation, Vital Signs Vital Signs: Last Vital Signs Temp 98 F 10/08/17 18:10 Pulse 81 10/08/17 18:10 Resp 20 10/08/17 18:10 BP 148/72 10/08/17 18:10 Pulse Ox 100 10/08/17 19:34 - Medical History PMH: Anxiety, Asthma, Atrial Fibrillation, Bronchitis, CAD, Cardia Arrhythmia, CHF, COPD, CVA, Depression, Diabetes, Deep Vein Thrombosis, Gastritis, HTN, Hypercholesterolemia, Hyperlipidemia, Hyperthyroidism, Peripheral Edema, Pneumonia, Pulmonary Embolism Denies: HIV, Chronic Kidney Disease - Surgical History Surgical History: No Surg Hx - Family History Family History: States: [place], CAD, Diabetes, Hypertension (mother) - Social History Current smoker - smoking cessation education provided: Yes (Current some days smoker) Alcohol: None Drugs: Cocaine - Immunization History Hx Tetanus Toxoid Vaccination: No Hx Influenza Vaccination: No Hx Pneumococcal Vaccination: No - Home Medications Home Medications: Ambulatory Orders Medication Instructions Recorded Ibuprofen [Motrin Tab] 400 mg PO Q6 PRN tab 08/23/17 guaiFENesin [Mucinex LA] 600 mg PO Q12 tab 08/23/17 Apixaban [Eliquis] 5 mg PO Q12 #60 tablet 08/26/17 Aspirin [Aspirin Chewable] 81 mg PO DAILY #30 chew 08/26/17 Atorvastatin [Lipitor] 40 mg PO DAILY #30 tab 08/26/17 Colchicine [Mitigare] 0.6 mg PO DAILY #30 capsule 08/26/17 Digoxin 0.125 mg PO DAILY 30 Days #30 tab 08/26/17 Gabapentin [Neurontin] 300 mg PO Q12 #60 cap 08/26/17 GlipiZIDE [Glucotrol] 5 mg PO ACB #120 tab 08/26/17 Ipratropium [Atrovent HFA] 1 puff IH Q6 PRN #1 inhaler 08/26/17 Losartan Potassium [Cozaar] 100 mg PO DAILY #30 tablet 08/26/17 Tiotropium [Spiriva] 18 mcg IH DAILY #30 cap 08/26/17 Apixaban [Eliquis] 5 mg PO DAILY 09/13/17 Colchicine 0.6 mg PO DAILY 09/13/17 Gabapentin [Neurontin] 300 mg PO BID 09/13/17 Glimepiride 2 mg PO DAILY 09/13/17 Losartan [Cozaar] 100 mg PO DAILY 09/13/17 Methylprednisolone [Medrol Dose 4 mg PO DAILY #21 mg 09/21/17 Pack (21 tabs)] diltiaZEM CD [Cardizem CD] 300 mg PO DAILY #30 cap 09/21/17 metFORMIN [glucOPHAGE] 500 mg PO BID #60 tab 09/21/17 - Allergies Allergies/Adverse Reactions: Allergies Allergy/AdvReac Type Severity Reaction Status Date / Time Penicillins Allergy RASH Verified 10/08/17 18:10 Review of Systems ROS Statement: Except As Marked, All Systems Reviewed And Found Negative Cardiovascular: Positive for: Chest Pain, Edema (bilateral legs) Physical Exam - Reviewed Nursing Documentation Reviewed: Yes Vital Signs Reviewed: Yes - Physical Exam Appears: Positive for: Non-toxic, No Acute Distress Head Exam: Positive for: ATRAUMATIC, NORMAL INSPECTION, NORMOCEPHALIC Skin: Positive for: Normal Color, Warm, Dry Eye Exam: Positive for: EOMI ENT: Positive for: Pharynx Is (CLEAR) Neck: Positive for: Painless ROM Cardiovascular/Chest: Positive for: Edema, Irregularly Irregular (A-fib). Negative for: Murmur Respiratory: Positive for: Normal Breath Sounds. Negative for: Accessory Muscle Use, Respiratory Distress Gastrointestinal/Abdominal: Positive for: Normal Exam, Soft. Negative for: Tenderness, Mass, Guarding, Rebound Back: Positive for: Normal Inspection. Negative for: Decreased ROM Extremity: Positive for: Tenderness, Pedal Edema, Swelling. Negative for: Calf Tenderness Lymphatic: Negative for: Adenopathy Neurologic/Psych: Positive for: Alert, Oriented. Negative for: Motor/Sensory Deficits - Laboratory Results Result Diagrams: 10/08/17 18:44 10/08/17 18:44 - ECG ECG: Positive for: Interpreted By Me ECG Rhythm: Positive for: Normal ST Segment, Atrial Fibrillation (rate controlled) O2 Sat by Pulse Oximetry: 100 (RA) Pulse Ox Interpretation: Normal - Radiology X-Ray: Interpreted by Me X-Ray Interpretation: No Acute Disease - Progress ED Course And Treament: While in ER pt had developed mild wheezing. Improved after nebs. Re-evaluation Time: 22:00 Condition: Improved Medical Decision Making Medical Decision Making: Time: 18:23 Initial Impression: Chest pain and leg swelling. Initial Plan: --EKG --CMP --Drug screen, urine --Magnesium --Phosphorus --Troponin I --Urine dipstick --CBC w/ differential --PTT --PT --Chest portable [RAD] --Reevaluation Labs, including repeat troponin, were unremarkable. Pt sleeping comfortably on reevaluation at 2200. Stable for dc. ----- Scribe Attestation: Documented by Jose Guadalupe Kuhn, acting as a scribe for Mery Isabel MD. Provider Scribe Attestation: All medical record entries made by the Scribe were at my direction and personally dictated by me. I have reviewed the chart and agree that the record accurately reflects my personal performance of the history, physical exam, medical decision making, and the department course for this patient. I have also personally directed, reviewed, and agree with the discharge instructions and disposition. Disposition - Clinical Impression Clinical Impression: Cocaine abuse, CHF (congestive heart failure) - Disposition Referrals: [facility] [Outside] Disposition: Routine/Home Disposition Time: 22:18 Condition: IMPROVED Instructions: Heart Failure and Atrial Fibrillation, Cocaine Use Disorder Print Language: GREEK
[2017-10-08 19:24] LABS: ALB/GLOB RATIO 1.3 (1.0-2.1); ALT/SGPT 24 U/L (21-72); AST/SGOT 38 U/L (17-59); BLOOD UREA NITROGEN 15 mg/dl (9-20); CALCIUM 11.2 mg/dL (8.4-10.2); GFR NON-AFRICAN AMERICAN 55
[2017-10-08] MEDS ORDERED: Albuterol-Ipratrop 3 mg / 0.5 (3 ml) UD INH STA (21:41)
[2017-10-08 22:08] LABS: BARBITURATES, UR NEGATIVE (NEGATIVE)
[2017-10-08 22:09] LABS: BENZODIAZEPINES, UR NEGATIVE (NEGATIVE); OPIATES, UR NEGATIVE (NEGATIVE); PHENCYCLIDINE, UR NEGATIVE (NEGATIVE)
[2017-10-08 22:48] VITALS: RESP 17
[2017-10-08 23:00] VITALS: BP 141/67; PULSE 67; O2SAT 97
--- NOTE | 2017-10-09 09:11 | RAD ---
Date of service: 10/08/2017 HISTORY: cp COMPARISON: No prior. FINDINGS: LUNGS: No active pulmonary disease. PLEURA: No significant pleural effusion identified, no pneumothorax apparent. CARDIOVASCULAR: Normal. OSSEOUS STRUCTURES: No significant abnormalities. VISUALIZED UPPER ABDOMEN: Normal. OTHER FINDINGS: None. IMPRESSION: No active disease.
--- NOTE | 2017-10-09 17:45 | CARD ---
APPROVED REPORT Date of service: 10/08/2017 EKG Measurement Heart [id number] <Conclusion> Atrial fibrillation Abnormal ECG
== END 2017-10-08 23:00 | disposition home or self-care (01) ==
LOC: H.ER 18:01
DX: F14.10 Cocaine abuse, uncomplicated (principal); I50.9 Heart failure, unspecified; I48.91 Unspecified atrial fibrillation; I11.0 Hypertensive heart disease with heart failure; E11.9 Type 2 diabetes mellitus without complications; E05.90 Thyrotoxicosis, unspecified without thyrotoxic crisis or storm; E78.00 Pure hypercholesterolemia, unspecified; Z79.84 Long term (current) use of oral hypoglycemic drugs; Z86.711 Personal history of pulmonary embolism; Z86.718 Personal history of other venous thrombosis and embolism; Z86.73 Personal history of transient ischemic attack (TIA), and cerebral infarction without residual deficits; Z88.0 Allergy status to penicillin; Z91.14 Patient's other noncompliance with medication regimen

== ENCOUNTER 2017-11-05 16:48 | Emergency (ER) | payer MEDICAID ==
[2017-11-05 16:48] VITALS: PULSE 72; BMI 34.9
[2017-11-05 17:03] VITALS: TEMP 98.6
[2017-11-05] MEDS ORDERED: Albuterol-Ipratrop 3 mg / 0.5 (3 ml) UD INH STA (17:04)
[2017-11-05 17:10] VITALS: RESP 16; O2SAT 99
[2017-11-05] MEDS ORDERED: Albuterol-Ipratrop 3 mg / 0.5 (3 ml) UD ONE (17:12)
--- NOTE | 2017-11-05 17:21 | ED PDOC ---
HPI: SOB/CHF/COPD Time Seen by Provider: 11/05/17 17:01 Chief Complaint (Nursing): Shortness Of Breath Chief Complaint (Provider): Asthma History Per: Patient Additional Complaint(s): 67 yo male, PMH of Asthma, COPD, presents to ED with complaint sof Patient c/o shortness of breath sudden onset while walkiing Past Medical History Reviewed: Nursing Documentation, Vital Signs Vital Signs: Last Vital Signs Temp 98.6 F 11/05/17 17:01 Pulse 85 11/05/17 17:01 Resp 16 11/05/17 17:08 BP 144/64 11/05/17 17:01 Pulse Ox 99 11/05/17 17:08 - Medical History PMH: Anxiety, Asthma, Atrial Fibrillation, Bronchitis, CAD, Cardia Arrhythmia, CHF, COPD, CVA, Depression, Diabetes, Deep Vein Thrombosis, Gastritis, HTN, Hypercholesterolemia, Hyperlipidemia, Hyperthyroidism, Peripheral Edema, Pneumonia, Pulmonary Embolism Denies: HIV, Chronic Kidney Disease - Surgical History Surgical History: No Surg Hx - Family History Family History: States: [place], CAD, Diabetes, Hypertension (mother) - Living Arrangements Living Arrangements: With Family - Social History Current smoker - smoking cessation education provided: No Alcohol: None Drugs: Denies - Immunization History Hx Tetanus Toxoid Vaccination: No Hx Influenza Vaccination: No Hx Pneumococcal Vaccination: No - Home Medications Home Medications: Ambulatory Orders Medication Instructions Recorded Ibuprofen [Motrin Tab] 400 mg PO Q6 PRN tab 08/23/17 guaiFENesin [Mucinex LA] 600 mg PO Q12 tab 08/23/17 Apixaban [Eliquis] 5 mg PO Q12 #60 tablet 08/26/17 Aspirin [Aspirin Chewable] 81 mg PO DAILY #30 chew 08/26/17 Atorvastatin [Lipitor] 40 mg PO DAILY #30 tab 08/26/17 Colchicine [Mitigare] 0.6 mg PO DAILY #30 capsule 08/26/17 Digoxin 0.125 mg PO DAILY 30 Days #30 tab 08/26/17 Gabapentin [Neurontin] 300 mg PO Q12 #60 cap 08/26/17 GlipiZIDE [Glucotrol] 5 mg PO ACB #120 tab 08/26/17 Ipratropium [Atrovent HFA] 1 puff IH Q6 PRN #1 inhaler 08/26/17 Losartan Potassium [Cozaar] 100 mg PO DAILY #30 tablet 08/26/17 Tiotropium [Spiriva] 18 mcg IH DAILY #30 cap 08/26/17 Apixaban [Eliquis] 5 mg PO DAILY 09/13/17 Colchicine 0.6 mg PO DAILY 09/13/17 Gabapentin [Neurontin] 300 mg PO BID 09/13/17 Glimepiride 2 mg PO DAILY 09/13/17 Losartan [Cozaar] 100 mg PO DAILY 09/13/17 Methylprednisolone [Medrol Dose 4 mg PO DAILY #21 mg 09/21/17 Pack (21 tabs)] diltiaZEM CD [Cardizem CD] 300 mg PO DAILY #30 cap 09/21/17 metFORMIN [glucOPHAGE] 500 mg PO BID #60 tab 09/21/17 Methylprednisolone [Medrol Dose 4 mg PO DAILY #21 mg 11/05/17 Pack (21 tabs)] - Allergies Allergies/Adverse Reactions: Allergies Allergy/AdvReac Type Severity Reaction Status Date / Time Penicillins Allergy RASH Verified 11/05/17 17:00 Physical Exam - Reviewed Nursing Documentation Reviewed: Yes Vital Signs Reviewed: Yes - Physical Exam Appears: Positive for: Well, Non-toxic, No Acute Distress Head Exam: Positive for: ATRAUMATIC, NORMAL INSPECTION, NORMOCEPHALIC Skin: Positive for: Normal Color, Warm, DRY Eye Exam: Positive for: EOMI, Normal appearance, PERRL ENT: Positive for: Normal ENT Inspection Neck: Positive for: Normal, Painless ROM Cardiovascular/Chest: Positive for: Regular Rate, Rhythm Respiratory: Positive for: Wheezing (mild expiratpory) Gastrointestinal/Abdominal: Positive for: Normal Exam, Soft Back: Positive for: Normal Inspection Extremity: Positive for: Normal ROM Neurologic/Psych: Positive for: Alert, Oriented - ECG O2 Sat by Pulse Oximetry: 99 Medical Decision Making Medical Decision Making: IV access established and treatment initiated with Duo nebs and Solumedrol On re-eval, Pt doing well. Lungs CTA bilaterally. POX: 100% on RA Pt asking to go home. No sob or chest pain Disposition - Clinical Impression Clinical Impression: Asthma attack - Patient ED Disposition Is Patient to be Admitted: No - Disposition Disposition: Routine/Home Disposition Time: 19:56 Condition: STABLE Prescriptions: Methylprednisolone [Medrol Dose Pack (21 tabs)] 4 mg PO DAILY #21 mg Instructions: Asthma in Adults Forms: [employer] (Portuguese)
--- NOTE | 2017-11-05 18:08 | RAD ---
Date of service: 11/05/2017 PROCEDURE: CHEST RADIOGRAPH, 1 VIEW HISTORY: SOB COMPARISON: Chest radiograph dated 10/08/2017. FINDINGS: LUNGS: Clear. PLEURA: No pneumothorax or pleural fluid seen. CARDIOVASCULAR: Normal. OSSEOUS STRUCTURES: Unchanged. VISUALIZED UPPER ABDOMEN: Normal. OTHER FINDINGS: None. IMPRESSION: No active disease.
[2017-11-05 19:05] VITALS: BP 138/62; PULSE 90
--- NOTE | 2017-11-06 09:15 | CARD ---
APPROVED REPORT Date of service: 11/05/2017 EKG Measurement Heart [id number] <Conclusion> Atrial fibrillation Abnormal ECG
== END 2017-11-05 20:01 | disposition home or self-care (01) ==
LOC: H.ER 16:48
DX: J45.909 Unspecified asthma, uncomplicated (principal); Z86.59 Personal history of other mental and behavioral disorders; I11.0 Hypertensive heart disease with heart failure; J44.9 Chronic obstructive pulmonary disease, unspecified; E11.9 Type 2 diabetes mellitus without complications; Z79.84 Long term (current) use of oral hypoglycemic drugs; Z79.82 Long term (current) use of aspirin; Z79.01 Long term (current) use of anticoagulants; Z82.49 Family history of ischemic heart disease and other diseases of the circulatory system; Z86.711 Personal history of pulmonary embolism; Z86.718 Personal history of other venous thrombosis and embolism; Z86.73 Personal history of transient ischemic attack (TIA), and cerebral infarction without residual deficits; Z88.0 Allergy status to penicillin
CPT/HCPCS: 71045; 93005; 94640; 96374; 99283; J2930

== ENCOUNTER 2017-11-09 04:41 | Observation (INO) | payer MEDICAID ==
[2017-11-09 04:41] VITALS: BMI 34.9
[2017-11-09] MEDS ORDERED: Albuterol-Ipratrop 3 mg / 0.5 (3 ml) UD INH STA ×4 (04:51→09:22)
--- NOTE | 2017-11-09 05:00 | ED PDOC ---
HPI: SOB/CHF/COPD Time Seen by Provider: 11/09/17 04:43 Chief Complaint (Nursing): Respiratory Distress Chief Complaint (Provider): Respiratory Distress History Per: Patient History/Exam Limitations: no limitations Onset/Duration Of Symptoms: Hrs Current Symptoms Are (Timing): Still Present Associated Symptoms: Productive Cough. denies: Chest Pain Additional Complaint(s): Ignacio Soni is a 67 year old male with a past medical history of hy pertension, hypercholesterolemia, asthma, and COPD who is presenting to the ED for evaluation of shortness of breath onset this morning. Patient states that he woke up in a half-way short of breath and having an asthma attack. He reports that he used Ventolin without relief of symptoms. Patient also adds that he has been coughing up white phlegm for the past 2 days/ He denies any fever, chills, or chest pain but does report chest tightness. PMD: Maricruz Solis Past Medical History Reviewed: Historical Data, Nursing Documentation, Vital Signs Vital Signs: Last Vital Signs Temp 98.5 F 11/09/17 04:43 Pulse 80 11/09/17 04:43 Resp 24 11/09/17 04:43 BP 199/99 H 11/09/17 04:43 Pulse Ox 96 11/09/17 04:43 - Medical History PMH: Anxiety, Asthma, Atrial Fibrillation, Bronchitis, CAD, Cardia Arrhythmia, CHF, COPD, CVA, Depression, Diabetes, Deep Vein Thrombosis, Gastritis, HTN, Hypercholesterolemia, Hyperlipidemia, Hyperthyroidism, Peripheral Edema, Pneumonia, Pulmonary Embolism Denies: HIV, Chronic Kidney Disease - Surgical History Other surgeries: Orthopedic Surgery - Family History Family History: States: [place], CAD, Diabetes, Hypertension (mother) - Social History Current smoker - smoking cessation education provided: No Alcohol: None Drugs: Denies - Immunization History Hx Tetanus Toxoid Vaccination: No Hx Influenza Vaccination: No Hx Pneumococcal Vaccination: No - Home Medications Home Medications: Ambulatory Orders Medication Instructions Recorded RX: Aspirin [Aspirin Chewable] 81 mg PO DAILY #30 chew 08/26/17 RX: Atorvastatin [Lipitor] 40 mg PO DAILY #30 tab 08/26/17 RX: Digoxin 0.125 mg PO DAILY 30 Days #30 tab 08/26/17 RX: Gabapentin [Neurontin] 300 mg PO Q12 #60 cap 08/26/17 RX: GlipiZIDE [Glucotrol] 5 mg PO ACB #120 tab 08/26/17 RX: Ipratropium [Atrovent HFA] 1 puff IH Q6 PRN #1 inhaler 08/26/17 RX: Tiotropium [Spiriva] 18 mcg IH DAILY #30 cap 08/26/17 RX: Colchicine 0.6 mg PO DAILY 09/13/17 RX: Losartan [Cozaar] 100 mg PO DAILY 09/13/17 RX: Albuterol Sulfate [Ventolin 2 puff IH Q6 PRN 11/09/17 Hfa] RX: diltiaZEM CD [Cardizem CD] 240 mg PO DAILY 11/09/17 RX: metFORMIN [glucOPHAGE] 500 mg PO BID 11/09/17 RX: Apixaban [Eliquis] 5 mg PO Q12 #60 tablet 11/11/17 RX: Azithromycin [Zithromax] 250 mg PO DAILY 5 Days #5 tab 11/11/17 RX: Prednisone 10 mg PO DAILY 4 Days #10 tab.ds.pk 11/11/17 - Allergies Allergies/Adverse Reactions: Allergies Allergy/AdvReac Type Severity Reaction Status Date / Time Penicillins Allergy RASH Verified 11/05/17 17:00 Review of Systems ROS Statement: Except As Marked, All Systems Reviewed And Found Negative Constitutional: Negative for: Fever, Chills Cardiovascular: Negative for: Chest Pain Respiratory: Positive for: Cough, Shortness of Breath Physical Exam - Reviewed Nursing Documentation Reviewed: Yes Vital Signs Reviewed: Yes - Physical Exam Appears: Positive for: Non-toxic, No Acute Distress Head Exam: Positive for: ATRAUMATIC, NORMAL INSPECTION, NORMOCEPHALIC Skin: Positive for: Normal Color, Warm, DRY Eye Exam: Positive for: EOMI, Normal appearance, PERRL ENT: Positive for: Normal ENT Inspection Neck: Positive for: Normal, Painless ROM Cardiovascular/Chest: Positive for: Regular Rate, Rhythm. Negative for: Murmur Respiratory: Positive for: Wheezing (bilaterally), Respiratory Distress (mild) Gastrointestinal/Abdominal: Positive for: Normal Exam, Soft. Negative for: Tenderness Back: Positive for: Normal Inspection. Negative for: L CVA Tenderness, R CVA Tenderness, Vertebral Tenderness Extremity: Positive for: Normal ROM. Negative for: Deformity, Swelling Neurologic/Psych: Positive for: Alert, Oriented. Negative for: Motor/Sensory Deficits - Laboratory Results Result Diagrams: 11/11/17 04:40 11/11/17 04:40 - ECG O2 Sat by Pulse Oximetry: 96 (RA) Pulse Ox Interpretation: Normal Medical Decision Making Medical Decision Making: Time: 4:52 A/P: 67 year old male presenting with asthma exacerbation --Unclear of trigger at the moment --Will initiate nebulizer treatment and reevaluate patient 6:00 --Patient is breathing much better --No longer wheezing --Advised patient to followup as outpatient Scribe Attestation: Documented by Zoë Barnes, acting as a scribe for Niraj Hernandez MD. Provider Scribe Attestation: All medical record entries made by the Scribe were at my direction and personally dictated by me. I have reviewed the chart and agree that the record accurately reflects my personal performance of the history, physical exam, medical decision making, and the department course for this patient. I have also personally directed, reviewed, and agree with the discharge instructions and disposition. Disposition - Clinical Impression Clinical Impression: COPD with acute exacerbation - Patient ED Disposition Is Patient to be Admitted: No - Disposition Disposition: Routine/Home Disposition Time: 06:10 Condition: IMPROVED
--- NOTE | 2017-11-09 07:25 | ED PDOC ---
- ECG O2 Sat by Pulse Oximetry: 94 (RA) Pulse Ox Interpretation: Abnormal Medical Decision Making Medical Decision Making: Time: 07:00 --Patient care endorsed from Dr. Hernandez to Dr. Moulton pending repeat heart rate. Time: 09:28 --Patient's pulse came down to 100. Patient awoke, still has slight wheezing. --Provider ordered another nebulizer treatment and oral steroids. Also added z- pack to discharge papers. --Patient has a low grade temperature of 100. Time: 10:34 --Patient's heart rate came down and he is feeling better. Time: 10:57 --Patient heart rate went back up to 114. Going to keep him longer. Time: 10:58 --Patient follows in the clinic but will admitted to the hospital. Time: 11:02 --Spoke with Dr. Villatoro, resident, and let him know about patient Scribe Attestation: Documented by Luigi Miranda acting as a scribe for Samantha Moulton MD Provider Scribe Attestation: All medical record entries made by the Scribe were at my direction and personally dictated by me. I have reviewed the chart and agree that the record accurately reflects my personal performance of the history, physical exam, medical decision making, and the department course for this patient. I have also personally directed, reviewed, and agree with the discharge instructions and disposition. Disposition - Clinical Impression Clinical Impression: COPD with acute exacerbation - Disposition Condition: IMPROVED
--- NOTE | 2017-11-09 11:42 | CP.PCM.HP ---
<ZenonMartínez mattson - Last Filed: 11/09/17 14:07> History of Present Illness - History of Present Illness History of Present Illness: 67 yo male patient with pmhx of COPD, Afib, CVA, HTN, HLD, PVD, NIDDM2, gout, depression, cocaine abuse, hyperparathyroidism seen and evaluated in the ED for SOB. Patient is AAOx3 and NAD. States that he has been having SOB since this morning. States that he also has pain in his lower legs. Patient presnted to the ED 11/05 for the same issue. Patient denies N/V and c/o some fever and chills. Denies CP and complains of pain in posterior calves. PMHx: COPD, Afib, CVA, HTN, HLD, PVD, NIDDM2, gout, depression, cocaine abuse, hyperparathyroidism PSHx: bunionectomy, cardiac cath June 2016, I&D upper back 08/2017 All: penicillin FH: unknown SH: cocaine abuse, smokes 1 ppd, drinks socially Present on Admission - Present on Admission Any Indicators Present on Admission: Yes Review of Systems - Constitutional Constitutional: As Per HPI - Cardiovascular Cardiovascular: As Per HPI - Respiratory Respiratory: Dyspnea on Exertion, Wheezing - Gastrointestinal Gastrointestinal: As Per HPI Past Patient History - Infectious Disease Hx of Infectious Diseases: None - Tetanus Immunizations Tetanus Immunization: Unknown - Past Medical History & Family History Past Medical History?: Yes - Past Social History Alcohol: None Drugs: Denies - CARDIAC Hx Atrial Fibrillation: Yes Hx Cardia Arrhythmia: Yes Hx Congestive Heart Failure: Yes Hx Hypercholesterolemia: Yes Hx Hypertension: Yes Hx Peripheral Edema: Yes - PULMONARY Hx Asthma: Yes Hx Bronchitis: Yes Hx Chronic Obstructive Pulmonary Disease (COPD): Yes Hx Pneumonia: Yes Hx Pulmonary Embolism: Yes - NEUROLOGICAL Hx Neurological Disorder: Yes - HEENT Hx HEENT Problems: No - RENAL Hx Chronic Kidney Disease: No - ENDOCRINE/METABOLIC Hx Hyperthyroidism: Yes - HEMATOLOGICAL/ONCOLOGICAL Hx Human Immunodeficiency Virus (HIV): No - INTEGUMENTARY Other/Comment: left foot ulcer - MUSCULOSKELETAL/RHEUMATOLOGICAL Hx Falls: No - GASTROINTESTINAL Hx Gastritis: Yes - GENITOURINARY/GYNECOLOGICAL Hx Genitourinary Disorders: No - PSYCHIATRIC Hx Anxiety: Yes Hx Depression: Yes - SURGICAL HISTORY Hx Herniorrhaphy: Yes - ANESTHESIA Hx Anesthesia: Yes Hx Anesthesia Reactions: No Meds Allergies/Adverse Reactions: Allergies Allergy/AdvReac Type Severity Reaction Status Date / Time Penicillins Allergy RASH Verified 11/05/17 17:00 Physical Exam - Constitutional Appears: Well, Non-toxic, No Acute Distress - Head Exam Head Exam: ATRAUMATIC, NORMOCEPHALIC - Eye Exam Eye Exam: EOMI, Normal appearance - ENT Exam ENT Exam: Mucous Membranes Moist, Normal Exam - Neck Exam Neck exam: Positive for: Normal Inspection - Respiratory Exam Respiratory Exam: Wheezes, Respiratory Distress - Cardiovascular Exam Cardiovascular Exam: REGULAR RHYTHM - GI/Abdominal Exam GI & Abdominal Exam: Normal Bowel Sounds, Soft - Extremities Exam Additional comments: Pain on palpation of calves b/l DP pulses palpable 2/4 b/l, PT nonpalpable secondary to edema Nonpitting edema present in b/l LE Skin is dry but no open lesions or ulcerations present - Neurological Exam Neurological exam: Alert, Oriented x3 - Psychiatric Exam Psychiatric exam: Normal Affect, Normal Mood - Skin Skin Exam: Dry, Intact, Warm Results - Vital Signs Recent Vital Signs: Last Vital Signs Temp 99.6 F 11/09/17 10:51 Pulse 114 H 11/09/17 10:51 Resp 29 H 11/09/17 10:51 BP 132/75 11/09/17 10:51 Pulse Ox 94 L 11/09/17 11:08 - Labs Result Diagrams: 11/09/17 13:05 Assessment & Plan - Assessment and Plan (Free Text) Assessment: 67 yo male with extensive pmhx seen and evaluated for shortness of breath and pain in lower legs Plan: Asthma/COPD -acute on chronic exacerbation required 4 duo-nebs with improvement and after PO prednisone -continue with home regimin -ECHO 09/19/17: LVEF ~60-65%, borderline concentric LVH, mild-mod MR, mod-severe pulm HTN Pulmonary hypertension - acute on chronic exacerbation (treatment complicated by patients lifestyle choices) -will consider pulmonary consult LE Cellulitis -Lower extremity venous duplex - ordered results pending DMII - chronic, controlled, asymptomatic -Metformin 500mg po BID -Glipizide 5mg PO ACB -accuchecks -hypoglycemia protocol -gabapentin 300mg PO Q12 for neuropathy Afib - acute on chronic exacerbation, controlled with two rounds of cardizem -continue at home regimine -Cardizem 240mg po daily -Eliquis 5mg po Q12 -Digoxin 0.125 mg PO daily HTN - asymptomatic, chronic, controlled -Cozaar 100mg po daily -cardizem 240mg po daily Gout- asymptomatic, chronic, controlled -Colchicine 0.6mg PO daily DVT prophylaxis -Eliquis 5mg PO Q12 -Aspirin 81mg PO daily HLD - asymptomatic, chronic, controlled -atorvastatin 40 mg PO daily - Date & Time Date: 11/09/17 Time: 14:40 <Gavino Johnson D - Last Filed: 11/09/17 17:02> Results - Vital Signs Recent Vital Signs: Last Vital Signs Temp 98.3 F 11/09/17 16:21 Pulse 90 11/09/17 16:21 Resp 20 11/09/17 16:21 BP 154/80 H 11/09/17 16:21 Pulse Ox 99 11/09/17 16:21 - Labs Result Diagrams: 11/09/17 13:05 11/09/17 13:05 Labs: Laboratory Results - last 24 hr 11/09/17 11/09/17 11/09/17 13:05 13:05 13:05 WBC 10.8 RBC 4.55 Hgb 13.5 Hct 40.8 MCV 89.7 D MCH 29.6 MCHC 33.0 RDW 15.4 H Plt Count 162 MPV 10.0 Neut % (Auto) 76.6 H Lymph % (Auto) 11.7 L [place] % (Auto) 10.2 H Eos % (Auto) 1.2 Baso % (Auto) 0.3 Neut # (Auto) 8.3 H Lymph # (Auto) 1.3 [place] # (Auto) 1.1 H Eos # (Auto) 0.1 Baso # (Auto) 0.0 PT INR Sodium 143 Potassium 5.0 Chloride 108 H Carbon Dioxide 26 Anion Gap 14 BUN 22 H Creatinine 1.2 Est GFR ( Amer) > 60 Est GFR (Non-Af Amer) > 60 POC Glucose (mg/dL) Random Glucose 83 Calcium 11.3 H Total Bilirubin 0.6 AST 23 ALT 29 Alkaline Phosphatase 113 Total Protein 7.4 Albumin 3.9 Globulin 3.6 Albumin/Globulin Ratio 1.1 Urine Opiates Screen Negative Urine Methadone Screen Negative Ur Barbiturates Screen Negative Ur Phencyclidine Scrn Negative Ur Amphetamines Screen Negative U Benzodiazepines Scrn Negative U Oth Cocaine Metabols Positive H U Cannabinoids Screen Negative 11/09/17 11/09/17 13:05 16:52 WBC RBC Hgb Hct MCV MCH MCHC RDW Plt Count MPV Neut % (Auto) Lymph % (Auto) [place] % (Auto) Eos % (Auto) Baso % (Auto) Neut # (Auto) Lymph # (Auto) [place] # (Auto) Eos # (Auto) Baso # (Auto) PT 12.3 INR 1.1 Sodium Potassium Chloride Carbon Dioxide Anion Gap BUN Creatinine Est GFR ( Amer) Est GFR (Non-Af Amer) POC Glucose (mg/dL) 169 H Random Glucose Calcium Total Bilirubin AST ALT Alkaline Phosphatase Total Protein Albumin Globulin Albumin/Globulin Ratio Urine Opiates Screen Urine Methadone Screen Ur Barbiturates Screen Ur Phencyclidine Scrn Ur Amphetamines Screen U Benzodiazepines Scrn U Oth Cocaine Metabols U Cannabinoids Screen Attending/Attestation - Attestation I have personally seen and examined this patient.: Yes I have fully participated in the care of the patient.: Yes I have reviewed all pertinent clinical information: Yes
[2017-11-09] MEDS ORDERED: Albuterol 0.083% Inhal Sol (2.5 mg/3 mL) UD INH PRN (12:10)
[2017-11-09 13:31] LABS: BASO % 0.3 % (0.0-2.0); EOS # 0.1 K/uL (0.0-0.7); EOS % 1.2 % (0.0-4.0); HEMOGLOBIN 13.5 g/dL (12.0-18.0); INR 1.1; LYMPH # 1.3 K/uL (1.0-4.3); LYMPH % 11.7 % (20.0-40.0); MEAN CELL VOLUME 89.7 fl (80.0-94.0); MEAN CORPUSCULAR HEMOGLOBIN 29.6 pg (27.0-31.0); MONO # 1.1 K/uL (0.0-0.8); MONO % 10.2 % (0.0-10.0); NEUT # 8.3 K/uL (1.8-7.0); NEUT % 76.6 % (50.0-75.0); NRBC % 0.1 % (0.0-0.0); PROTHROMBIN TIME 12.3 Seconds (9.8-13.1); RBC 4.55 Mil/uL (4.40-5.90); RED CELL DISTRIBUTION WIDTH 15.4 % (11.5-14.5); WHITE BLOOD COUNT 10.8 K/uL (4.8-10.8)
[2017-11-09 13:38] LABS: ALB/GLOB RATIO 1.1 (1.0-2.1); ALBUMIN 3.9 g/dL (3.5-5.0); ALT/SGPT 29 U/L (21-72); AST/SGOT 23 U/L (17-59); BLOOD UREA NITROGEN 22 mg/dl (9-20); CALCIUM 11.3 mg/dL (8.4-10.2); GFR NON-AFRICAN AMERICAN > 60
[2017-11-09 13:53] LABS: BARBITURATES, UR NEGATIVE (NEGATIVE); BENZODIAZEPINES, UR NEGATIVE (NEGATIVE); OPIATES, UR NEGATIVE (NEGATIVE); PHENCYCLIDINE, UR NEGATIVE (NEGATIVE)
--- NOTE | 2017-11-09 16:33 | US ---
Date of service: 11/09/2017 PROCEDURE: Bilateral lower extremity venous duplex Doppler. HISTORY: SOB COMPARISON: 09/05/2017 TECHNIQUE: Bilateral common femoral, superficial femoral, popliteal and posterior tibial veins were evaluated. Flow was assessed with color Doppler, compressibility, assessment of phasic flow and augmentation response. FINDINGS: COMMON FEMORAL VEIN: Right CFV: Unremarkable. Left CFV: Unremarkable. SUPERFICIAL FEMORAL VEIN: Right SFV: Unremarkable. Left SFV: Unremarkable. POPLITEAL VEIN: Right Popliteal: Unremarkable. Left Popliteal: Unremarkable. POSTERIOR TIBIAL VEIN: Right PTV: Unremarkable. Left PTV: Unremarkable. OTHER FINDINGS: Incidental finding(s): Left inguinal region: Morphologically, unremarkable lymph node(s) IMPRESSION: No evidence of deep venous thrombosis.No significant interval change compared to the prior examination(s).
[2017-11-09] MEDS ORDERED: Influenza Vaccine (5 YR UP)/PF 60 MCG/0.5 ML SYR IM ONE (17:58)
[2017-11-09] MEDS: Albuterol HFA 90 mcg/actuation (8 g) IH PRN (18:39)
[2017-11-09] MEDS ORDERED: Enoxaparin 40 mg Syringe SC SCH (22:00)
[2017-11-10] MEDS: Albuterol HFA 90 mcg/actuation (8 g) IH PRN (03:14)
[2017-11-10] MEDS ORDERED: Albuterol-Ipratrop 3 mg / 0.5 (3 ml) UD INH STA (08:07)
[2017-11-10] MEDS: diltiaZEM 240 mg/24 Hours CD Cap PO SCH (08:20)
[2017-11-10] MEDS: Digoxin 125 mcg (0.125 mg) Tab PO SCH (08:23)
[2017-11-10] MEDS: Tiotropium 18 mcg Cap For Inhalation IH SCH (08:25)
[2017-11-10] MEDS: MethylPREDNISolone 40 mg Vial IVP SCH ×2 (08:31→16:12)
[2017-11-10 08:37] LABS: BASO % 0.2 % (0.0-2.0); EOS # 0.1 K/uL (0.0-0.7); EOS % 0.6 % (0.0-4.0); HEMOGLOBIN 13.6 g/dL (12.0-18.0); LYMPH # 1.2 K/uL (1.0-4.3); LYMPH % 8.1 % (20.0-40.0); MEAN CELL VOLUME 88.4 fl (80.0-94.0); MEAN CORPUSCULAR HEMOGLOBIN 29.3 pg (27.0-31.0); MEAN CORPUSCULAR HGB CONC 33.1 g/dL (33.0-37.0); MEAN PLATELET VOLUME 9.9 fl (7.2-11.7); MONO # 1.3 K/uL (0.0-0.8); MONO % 8.5 % (0.0-10.0); NEUT # 12.7 K/uL (1.8-7.0); NEUT % 82.6 % (50.0-75.0); PLATELET COUNT 151 K/uL (130-400); RBC 4.66 Mil/uL (4.40-5.90); RED CELL DISTRIBUTION WIDTH 15.2 % (11.5-14.5); WHITE BLOOD COUNT 15.3 K/uL (4.8-10.8)
[2017-11-10 08:52] LABS: ALBUMIN 3.5 g/dL (3.5-5.0); ALT/SGPT 26 U/L (21-72); AST/SGOT 19 U/L (17-59); BLOOD UREA NITROGEN 19 mg/dl (9-20); CALCIUM 10.9 mg/dL (8.4-10.2); GFR NON-AFRICAN AMERICAN > 60
[2017-11-10] MEDS ORDERED: methylPREDNISolone 40 MG in Sodium Chloride 0.9% 50 ML IVPB SCH (09:00)
--- NOTE | 2017-11-10 10:18 | CARD ---
APPROVED REPORT Date of service: 11/10/2017 EKG Measurement Heart [id number] <Conclusion> Atrial fibrillation with rapid ventricular response Abnormal ECG
--- NOTE | 2017-11-10 10:35 | RAD ---
Date of service: 11/10/2017 PROCEDURE: CHEST RADIOGRAPH, 1 VIEW HISTORY: r/o pneumonia COMPARISON: Frontal chest radiograph 11/05/2017. FINDINGS: LUNGS: No interval pulmonary disease appreciated bilaterally. PLEURA: No pneumothorax or pleural fluid seen. CARDIOVASCULAR: Mild cardiomegaly reiterated. No definite pulmonary vascular congestion. OSSEOUS STRUCTURES: No significant abnormalities. VISUALIZED UPPER ABDOMEN: Normal. OTHER FINDINGS: None. IMPRESSION: Stable cardiomegaly. No interval acute pulmonary disease appreciable. No pulmonary vascular congestion.
--- NOTE | 2017-11-10 11:01 | CP.PCM.PN ---
<Martínez Baldwin - Last Filed: 11/11/17 06:44> Subjective - Date & Time of Evaluation Date of Evaluation: 11/10/17 Time of Evaluation: 11:01 - Subjective Subjective: 67 yo male patient seen and evaluated at bedside for SOB. Patient is AAOx3 and NAD. 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 States the pain in his lower legs has decreased. He denies N/V/F/C/CP this morning and is resting comfortably in bed. Objective - Vital Signs/Intake and Output Vital Signs (last 24 hours): Temp Pulse Resp BP Pulse Ox 99.1 F 99 H 20 170/68 H 99 11/10/17 08:29 11/10/17 08:29 11/10/17 08:29 11/10/17 08:29 11/10/17 08:29 - Medications Medications: Current Medications Albuterol (Ventolin Hfa 90 Mcg/Actuation (8 G)) 2 puff IH Q6 PRN PRN Reason: Shortness of Breath Last Admin: 11/10/17 03:14 Dose: 2 puff Albuterol/Ipratropium (Duoneb 3 Mg/0.5 Mg (3 Ml) Ud) 3 ml INH RQID [facility] Apixaban (Eliquis) 5 mg PO Q12 [facility]; Protocol Last Admin: 11/10/17 08:23 Dose: 5 mg Aspirin (Aspirin Chewable) 81 mg PO DAILY [facility] Last Admin: 11/10/17 08:20 Dose: 81 mg Atorvastatin Calcium (Lipitor) 40 mg PO DAILY [facility] Last Admin: 11/10/17 08:24 Dose: 40 mg Colchicine (Colocrys) 0.6 mg PO DAILY [facility] Last Admin: 11/10/17 08:22 Dose: 0.6 mg Digoxin (Digoxin) 0.125 mg PO DAILY [facility] Last Admin: 11/10/17 08:23 Dose: 0.125 mg Diltiazem HCl (Cardizem Cd) 240 mg PO DAILY [facility] Last Admin: 11/10/17 08:20 Dose: 240 mg Gabapentin (Neurontin) 300 mg PO Q12 [facility] Last Admin: 11/10/17 08:25 Dose: 300 mg Glipizide (Glucotrol) 5 mg PO ACB [facility] Last Admin: 11/10/17 08:24 Dose: 5 mg Losartan Potassium (Cozaar) 100 mg PO DAILY [facility] Last Admin: 11/10/17 08:22 Dose: 100 mg Metformin HCl (Glucophage) 500 mg PO BID [facility] Last Admin: 11/10/17 08:24 Dose: 500 mg Methylprednisolone (Solu-Medrol) 40 mg IVP Q8H [facility] Last Admin: 11/10/17 08:31 Dose: 40 mg Tiotropium [place] (Spiriva) 18 mcg IH DAILY [facility] Last Admin: 11/10/17 08:25 Dose: 18 mcg - Labs Labs: 11/10/17 08:32 11/10/17 08:32 PT 12.3 Seconds (9.8-13.1) 11/09/17 13:05 INR 1.1 11/09/17 13:05 - Constitutional Appears: Well, Non-toxic, No Acute Distress - Head Exam Head Exam: ATRAUMATIC, NORMOCEPHALIC - Eye Exam Eye Exam: EOMI, Normal appearance - ENT Exam ENT Exam: Mucous Membranes Moist, Normal Exam - Neck Exam Neck Exam: Full ROM - Respiratory Exam Respiratory Exam: Wheezes, Respiratory Distress - Cardiovascular Exam Cardiovascular Exam: REGULAR RHYTHM, +S1, +S2 - GI/Abdominal Exam GI & Abdominal Exam: Soft, Normal Bowel Sounds - Back Exam Additional comments: Pain on palpation of calves b/l DP pulses palpable 2/4 b/l, PT nonpalpable secondary to edema Nonpitting edema present in b/l LE, venous stasis changes present Skin is dry but no open lesions or ulcerations present - Neurological Exam Neurological Exam: Alert, Awake, Oriented x3 - Psychiatric Exam Psychiatric exam: Normal Affect, Normal Mood - Skin Skin Exam: Dry, Intact, Warm Assessment and Plan - Assessment and Plan (Free Text) Assessment: 67 yo male with extensive pmhx seen and evaluated for shortness of breath and pain in lower legs Plan: Asthma/COPD -acute on chronic exacerbation required 4 duo-nebs with improvement and after PO prednisone -continue with home regimin -duonebs INH RQID -methylprednisone IV Q8 hr - first dose 40mg 11/10 at 8:30 -elevated white count, no fever present, likely due to steroid effect vs infection Pulmonary hypertension - acute on chronic exacerbation (treatment complicated by patients lifestyle choices) -will consider pulmonary consult -ECHO 09/19/17: LVEF ~60-65%, borderline concentric LVH, mild-mod MR, mod-severe pulm HTN -CXR negative for any infiltrates (11/10) LE Cellulitis -Lower extremity venous duplex - negative for DVT DMII - chronic, controlled, asymptomatic -Metformin 500mg po BID -Glipizide 5mg PO ACB -accuchecks -hypoglycemia protocol -gabapentin 300mg PO Q12 for neuropathy Afib - acute on chronic exacerbation, controlled with two rounds of cardizem -continue at home regimine -Cardizem 240mg po daily -Eliquis 5mg po Q12 -Digoxin 0.125 mg PO daily HTN - asymptomatic, chronic, controlled -Cozaar 100mg po daily -cardizem 240mg po daily Gout- asymptomatic, chronic, controlled -Colchicine 0.6mg PO daily DVT prophylaxis -Eliquis 5mg PO Q12 -Aspirin 81mg PO daily HLD - asymptomatic, chronic, controlled -atorvastatin 40 mg PO daily <Gavino Johnson - Last Filed: 11/12/17 11:08> Objective - Vital Signs/Intake and Output Vital Signs (last 24 hours): Temp Pulse Resp BP Pulse Ox 97.6 F 82 18 149/73 98 11/11/17 12:50 11/11/17 12:50 11/11/17 12:50 11/11/17 12:50 11/11/17 12:50 - Labs Labs: 11/11/17 04:40 11/11/17 04:40 PT 12.3 Seconds (9.8-13.1) 11/09/17 13:05 INR 1.1 11/09/17 13:05 Attending/Attestation - Attestation I have personally seen and examined this patient.: Yes I have fully participated in the care of the patient.: Yes I have reviewed all pertinent clinical information, including history, physical exam and plan: Yes
[2017-11-10] MEDS: Albuterol-Ipratrop 3 mg / 0.5 (3 ml) UD INH SCH ×3 (11:20→19:28)
[2017-11-10 14:09] LABS: ANISOCYTOSIS SLIGHT; GIANT PLATELETS PRESENT; LYMPHOCYTE 6 % (20-50); MONOCYTE 10 % (0-10); NEUTROPHIL 84 % (42-75); OVALOCYTES SLIGHT; PLATELET ESTIMATE NORMAL (NORMAL); TOTAL CELLS COUNTED 100
[2017-11-11] MEDS: MethylPREDNISolone 40 mg Vial IVP SCH ×2 (01:01→08:37)
[2017-11-11 05:53] LABS: BASO % 0.1 % (0.0-2.0); HEMOGLOBIN 13.4 g/dL (12.0-18.0); LYMPH # 0.6 K/uL (1.0-4.3); LYMPH % 3.1 % (20.0-40.0); MEAN CELL VOLUME 88.7 fl (80.0-94.0); MEAN CORPUSCULAR HGB CONC 32.6 g/dL (33.0-37.0); MONO # 0.4 K/uL (0.0-0.8); NEUT # 18.3 K/uL (1.8-7.0); NEUT % 94.8 % (50.0-75.0); PLATELET COUNT 181 K/uL (130-400); RBC 4.63 Mil/uL (4.40-5.90); RED CELL DISTRIBUTION WIDTH 15.4 % (11.5-14.5); WHITE BLOOD COUNT 19.3 K/uL (4.8-10.8)
[2017-11-11 06:08] VITALS: RESP 18
[2017-11-11 06:28] LABS: BLOOD UREA NITROGEN 23 mg/dl (9-20); CALCIUM 11.4 mg/dL (8.4-10.2); GFR NON-AFRICAN AMERICAN > 60
[2017-11-11] MEDS: Albuterol-Ipratrop 3 mg / 0.5 (3 ml) UD INH SCH ×2 (08:15→11:40)
[2017-11-11] MEDS: Digoxin 125 mcg (0.125 mg) Tab PO SCH (08:33)
[2017-11-11 08:34] VITALS: PULSE 98
[2017-11-11] MEDS: diltiaZEM 240 mg/24 Hours CD Cap PO SCH (08:36)
[2017-11-11] MEDS: Tiotropium 18 mcg Cap For Inhalation IH SCH (08:38)
[2017-11-11 10:05] LABS: BANDS 3 % (0-2); LYMPHOCYTE 6 % (20-50); MONOCYTE 2 % (0-10); NEUTROPHIL 89 % (42-75)
[2017-11-11 10:06] LABS: ANISOCYTOSIS SLIGHT; MICROCYTOSIS SLIGHT; PLATELET ESTIMATE NORMAL (NORMAL); POIKILOCYTOSIS SLIGHT; TOTAL CELLS COUNTED 100
[2017-11-11 10:07] LABS: LARGE PLATELETS PRESENT; OVALOCYTES MODERATE; TEARDROP CELLS SLIGHT
--- NOTE | 2017-11-11 10:49 | CP.PCM.PN ---
Subjective - Date & Time of Evaluation Date of Evaluation: 11/11/17 Time of Evaluation: 10:46 - Subjective Subjective: 67 yo male patient seen and evaluated at bedside for SOB. Patient is AAOx3 and NAD. States that he is not feeling short of breath this morning and denies wheezing or losing breath. States that the pain in his legs is no longer present. States he is breathing well on his own. He states he no longer feels chest tightness. He denies N/V/F/C/CP this morning and is resting comfortably in bed. Objective - Vital Signs/Intake and Output Vital Signs (last 24 hours): Temp Pulse Resp BP Pulse Ox 97.7 F 96 H 18 136/92 H 98 11/11/17 08:45 11/11/17 08:45 11/11/17 08:45 11/11/17 08:45 11/11/17 08:45 - Medications Medications: Current Medications Albuterol (Ventolin Hfa 90 Mcg/Actuation (8 G)) 2 puff IH Q6 PRN PRN Reason: Shortness of Breath Last Admin: 11/10/17 03:14 Dose: 2 puff Albuterol/Ipratropium (Duoneb 3 Mg/0.5 Mg (3 Ml) Ud) 3 ml INH RQID [facility] Last Admin: 11/11/17 08:15 Dose: 3 ml Apixaban (Eliquis) 5 mg PO Q12 [facility]; Protocol Last Admin: 11/11/17 08:33 Dose: 5 mg Aspirin (Aspirin Chewable) 81 mg PO DAILY [facility] Last Admin: 11/11/17 08:33 Dose: 81 mg Atorvastatin Calcium (Lipitor) 40 mg PO DAILY [facility] Last Admin: 11/11/17 08:37 Dose: 40 mg Clonidine HCl (Catapres) 0.1 mg PO BID [facility] Last Admin: 11/11/17 08:39 Dose: 0.1 mg Colchicine (Colocrys) 0.6 mg PO DAILY [facility] Last Admin: 11/11/17 08:35 Dose: 0.6 mg Digoxin (Digoxin) 0.125 mg PO DAILY [facility] Last Admin: 11/11/17 08:33 Dose: 0.125 mg Diltiazem HCl (Cardizem Cd) 240 mg PO DAILY [facility] Last Admin: 11/11/17 08:36 Dose: 240 mg Gabapentin (Neurontin) 300 mg PO Q12 [facility] Last Admin: 11/11/17 08:34 Dose: 300 mg Glipizide (Glucotrol) 5 mg PO ACB [facility] Last Admin: 11/11/17 08:36 Dose: 5 mg Losartan Potassium (Cozaar) 100 mg PO DAILY [facility] Last Admin: 11/11/17 08:35 Dose: 100 mg Metformin HCl (Glucophage) 500 mg PO BID [facility] Last Admin: 11/11/17 08:34 Dose: 500 mg Methylprednisolone (Solu-Medrol) 40 mg IVP Q8H [facility] Last Admin: 11/11/17 08:37 Dose: 40 mg Tiotropium [place] (Spiriva) 18 mcg IH DAILY [facility] Last Admin: 11/11/17 08:38 Dose: 18 mcg - Labs Labs: 11/11/17 04:40 11/11/17 04:40 PT 12.3 Seconds (9.8-13.1) 11/09/17 13:05 INR 1.1 11/09/17 13:05 - Constitutional Appears: Well, Non-toxic, No Acute Distress - Head Exam Head Exam: ATRAUMATIC, NORMOCEPHALIC - Eye Exam Eye Exam: EOMI, Normal appearance - ENT Exam ENT Exam: Mucous Membranes Moist, Normal Exam - Neck Exam Neck Exam: Normal Inspection - Respiratory Exam Respiratory Exam: absent: Chest Wall Tenderness, Respiratory Distress Additional comments: Demonstrates scattered wheezing, not regular - Cardiovascular Exam Cardiovascular Exam: REGULAR RHYTHM, +S1, +S2 - GI/Abdominal Exam GI & Abdominal Exam: Soft, Normal Bowel Sounds - Extremities Exam Extremities Exam: Normal Capillary Refill Additional comments: No pain on palpation of calves b/l DP pulses palpable 2/4 b/l, PT nonpalpable secondary to edema Nonpitting edema present in b/l LE, venous stasis changes present Skin is dry but no open lesions or ulcerations present - Neurological Exam Neurological Exam: Alert, Awake, Oriented x3 - Psychiatric Exam Psychiatric exam: Normal Affect, Normal Mood - Skin Skin Exam: Dry, Intact, Warm Assessment and Plan - Assessment and Plan (Free Text) Assessment: 67 yo male with extensive pmhx seen and evaluated for shortness of breath and pain in lower legs Plan: 1. Asthma/COPD -acute on chronic exacerbation (improved) -continue with home regimin -duonebs INH RQID -methylprednisone IV Q8 hr - fourth dose 40mg 11/11 at 8:30 -elevated white count, no fever present, likely due to steroid effect vs infection -diminished SOB symptoms and only scattered wheezing present 2. Pulmonary hypertension - acute on chronic exacerbation (treatment complicated by patients lifestyle choices) -will consider pulmonary consult -ECHO 09/19/17: LVEF ~60-65%, borderline concentric LVH, mild-mod MR, mod-severe pulm HTN -CXR negative for any infiltrates (11/10) 3. LE Cellulitis (improved) -Lower extremity venous duplex - negative for DVT 4. DMII - chronic, controlled, asymptomatic -Metformin 500mg po BID -Glipizide 5mg PO ACB -accuchecks -hypoglycemia protocol -gabapentin 300mg PO Q12 for neuropathy 5. Afib - acute on chronic exacerbation, controlled with two rounds of cardizem -continue at home regimine -Cardizem 240mg po daily -Eliquis 5mg po Q12 -Digoxin 0.125 mg PO daily 6. HTN - asymptomatic, chronic, controlled -Cozaar 100mg po daily -cardizem 240mg po daily 7. Gout- asymptomatic, chronic, controlled -Colchicine 0.6mg PO daily 8. DVT prophylaxis -Eliquis 5mg PO Q12 -Aspirin 81mg PO daily 9. HLD - asymptomatic, chronic, controlled -atorvastatin 40 mg PO daily
--- NOTE | 2017-11-11 12:08 | CP.PCM.DIS ---
<Martínez Baldwin - Last Filed: 11/11/17 14:51> Provider - Provider Date of Admission: 11/09/17 10:57 Attending physician: Gavino Johnson MD Consults: Social work referral Time Spent in preparation of Discharge (in minutes): 30 Hospital Course - Lab Results Lab Results: Most Recent Lab Values WBC 19.3 K/uL (4.8-10.8) H 11/11/17 04:40 RBC 4.63 Mil/uL (4.40-5.90) 11/11/17 04:40 Hgb 13.4 g/dL (12.0-18.0) 11/11/17 04:40 Hct 41.0 % (35.0-51.0) 11/11/17 04:40 MCV 88.7 fl (80.0-94.0) 11/11/17 04:40 MCH 29.0 pg (27.0-31.0) 11/11/17 04:40 MCHC 32.6 g/dL (33.0-37.0) L 11/11/17 04:40 RDW 15.4 % (11.5-14.5) H 11/11/17 04:40 Plt Count 181 K/uL (130-400) 11/11/17 04:40 MPV 10.0 fl (7.2-11.7) 11/11/17 04:40 Neut % (Auto) 94.8 % (50.0-75.0) H 11/11/17 04:40 Lymph % (Auto) 3.1 % (20.0-40.0) L 11/11/17 04:40 Riley % (Auto) 2.0 % (0.0-10.0) 11/11/17 04:40 Eos % (Auto) 0.0 % (0.0-4.0) 11/11/17 04:40 Baso % (Auto) 0.1 % (0.0-2.0) 11/11/17 04:40 Neut # (Auto) 18.3 K/uL (1.8-7.0) H 11/11/17 04:40 Lymph # (Auto) 0.6 K/uL (1.0-4.3) L 11/11/17 04:40 Riley # (Auto) 0.4 K/uL (0.0-0.8) 11/11/17 04:40 Eos # (Auto) 0.0 K/uL (0.0-0.7) 11/11/17 04:40 Baso # (Auto) 0.0 K/uL (0.0-0.2) 11/11/17 04:40 Neutrophils % (Manual) 89 % (42-75) H 11/11/17 04:40 Band Neutrophils % 3 % (0-2) H 11/11/17 04:40 Lymphocytes % (Manual) 6 % (20-50) L 11/11/17 04:40 Monocytes % (Manual) 2 % (0-10) 11/11/17 04:40 Platelet Estimate Normal (NORMAL) 11/11/17 04:40 Large Platelets Present 11/11/17 04:40 Giant Platelets Present 11/10/17 08:32 Poikilocytosis (manual Slight 11/11/17 04:40 Anisocytosis (manual) Slight 11/11/17 04:40 Microcytosis (manual) Slight 11/11/17 04:40 Tear Drop Cells Slight 11/11/17 04:40 Ovalocytes Moderate 11/11/17 04:40 PT 12.3 Seconds (9.8-13.1) 11/09/17 13:05 INR 1.1 11/09/17 13:05 Sodium 141 mmol/l (132-148) 11/11/17 04:40 Potassium 5.1 MMOL/L (3.6-5.0) H 11/11/17 04:40 Chloride 106 mmol/L (98-107) 11/11/17 04:40 Carbon Dioxide 31 mmol/L (22-30) H 11/11/17 04:40 Anion Gap 9 (10-20) L 11/11/17 04:40 BUN 23 mg/dl (9-20) H 11/11/17 04:40 Creatinine 1.2 mg/dl (0.8-1.5) 11/11/17 04:40 Est GFR ( Amer) > 60 11/11/17 04:40 Est GFR (Non-Af Amer) > 60 11/11/17 04:40 POC Glucose (mg/dL) 141 mg/dL (65-110) H 11/11/17 11:00 Random Glucose 184 mg/dL (75-110) H 11/11/17 04:40 Calcium 11.4 mg/dL (8.4-10.2) H 11/11/17 04:40 Total Bilirubin 0.4 mg/dl (0.2-1.3) 11/10/17 08:32 AST 19 U/L (17-59) 11/10/17 08:32 ALT 26 U/L (21-72) 11/10/17 08:32 Alkaline Phosphatase 107 U/L (38-126) 11/10/17 08:32 Total Protein 6.9 G/DL (6.3-8.2) 11/10/17 08:32 Albumin 3.5 g/dL (3.5-5.0) 11/10/17 08:32 Globulin 3.4 gm/dL (2.2-3.9) 11/10/17 08:32 Albumin/Globulin Ratio 1.0 (1.0-2.1) 11/10/17 08:32 Urine Opiates Screen Negative (NEGATIVE) 11/09/17 13:05 Urine Methadone Screen Negative (NEGATIVE) 11/09/17 13:05 Ur Barbiturates Screen Negative (NEGATIVE) 11/09/17 13:05 Ur Phencyclidine Scrn Negative (NEGATIVE) 11/09/17 13:05 Ur Amphetamines Screen Negative (NEGATIVE) 11/09/17 13:05 U Benzodiazepines Scrn Negative (NEGATIVE) 11/09/17 13:05 U Oth Cocaine Metabols Positive (NEGATIVE) H 11/09/17 13:05 U Cannabinoids Screen Negative (NEGATIVE) 11/09/17 13:05 - Hospital Course Hospital Course: 67 yo male patient seen and evaluated for SOB and pain in lower legs. Patient is AAOx3 and NAD. States that he is not feeling short of breath this morning and denies wheezing or losing breath. States that the pain in his legs is no longer present. States he is breathing well on his own. He states he no longer feels chest tightness. He denies N/V/F/C/CP this morning and is resting comfortably in bed. 1. Asthma/COPD -acute on chronic exacerbation (improved) -continue with home regimen -prescribed prednisone 10 mg PO daily 4 days tapered (day 1 - 4 tabs, day 2 - 3 tabs, day 3 - 2 tabs, day 4 - 1 tabs) -duonebs INH RQID -elevated white count, no fever present, likely due to steroid effect vs infection -diminished SOB symptoms and only scattered wheezing present -patient to follow up in [facility] 2. URI -acute - prescribed azithromycin 250 mg PO daily 5 tabs 3. LE Cellulitis (improved) -Lower extremity venous duplex - negative for DVT 4. DMII - chronic, controlled, asymptomatic -continue with home regimen 5. Afib - acute on chronic exacerbation -continue at home regimen 6. HTN - asymptomatic, chronic, controlled -continue with home regimen 7. Gout- asymptomatic, chronic, controlled -continue with at home regimen 8. HLD - asymptomatic, chronic, controlled -continue at home regimen 9. DVT prophylaxis -continue with at home regimen - Date & Time of H&P Date of H&P: 11/11/17 Time of H&P: 14:59 Discharge Exam - Head Exam Head Exam: ATRAUMATIC, NORMOCEPHALIC Discharge Plan - Discharge Medications Prescriptions: Apixaban [Eliquis] 5 mg PO Q12 #60 tablet Azithromycin [Zithromax] 250 mg PO DAILY 5 Days #5 tab Prednisone 10 mg PO DAILY 4 Days #10 tab.ds.pk - Follow Up Plan Condition: IMPROVED Disposition: HOME/ ROUTINE Instructions: Exacerbation of COPD Additional Instructions: Patient to follow up in [facility] follow up in the clinic 11/25/17 at 2:20pm with Referrals: [facility] [place] [Outside] Maricruz Solis MD [Family Provider] - <Steffany Mueller - Last Filed: 11/11/17 17:01> Provider - Provider Date of Admission: 11/09/17 10:57 Attending physician: Gavino Johnson MD Hospital Course - Lab Results Lab Results: Most Recent Lab Values WBC 19.3 K/uL (4.8-10.8) H 11/11/17 04:40 RBC 4.63 Mil/uL (4.40-5.90) 11/11/17 04:40 Hgb 13.4 g/dL (12.0-18.0) 11/11/17 04:40 Hct 41.0 % (35.0-51.0) 11/11/17 04:40 MCV 88.7 fl (80.0-94.0) 11/11/17 04:40 MCH 29.0 pg (27.0-31.0) 11/11/17 04:40 MCHC 32.6 g/dL (33.0-37.0) L 11/11/17 04:40 RDW 15.4 % (11.5-14.5) H 11/11/17 04:40 Plt Count 181 K/uL (130-400) 11/11/17 04:40 MPV 10.0 fl (7.2-11.7) 11/11/17 04:40 Neut % (Auto) 94.8 % (50.0-75.0) H 11/11/17 04:40 Lymph % (Auto) 3.1 % (20.0-40.0) L 11/11/17 04:40 Riley % (Auto) 2.0 % (0.0-10.0) 11/11/17 04:40 Eos % (Auto) 0.0 % (0.0-4.0) 11/11/17 04:40 Baso % (Auto) 0.1 % (0.0-2.0) 11/11/17 04:40 Neut # (Auto) 18.3 K/uL (1.8-7.0) H 11/11/17 04:40 Lymph # (Auto) 0.6 K/uL (1.0-4.3) L 11/11/17 04:40 Riley # (Auto) 0.4 K/uL (0.0-0.8) 11/11/17 04:40 Eos # (Auto) 0.0 K/uL (0.0-0.7) 11/11/17 04:40 Baso # (Auto) 0.0 K/uL (0.0-0.2) 11/11/17 04:40 Neutrophils % (Manual) 89 % (42-75) H 11/11/17 04:40 Band Neutrophils % 3 % (0-2) H 11/11/17 04:40 Lymphocytes % (Manual) 6 % (20-50) L 11/11/17 04:40 Monocytes % (Manual) 2 % (0-10) 11/11/17 04:40 Platelet Estimate Normal (NORMAL) 11/11/17 04:40 Large Platelets Present 11/11/17 04:40 Giant Platelets Present 11/10/17 08:32 Poikilocytosis (manual Slight 11/11/17 04:40 Anisocytosis (manual) Slight 11/11/17 04:40 Microcytosis (manual) Slight 11/11/17 04:40 Tear Drop Cells Slight 11/11/17 04:40 Ovalocytes Moderate 11/11/17 04:40 PT 12.3 Seconds (9.8-13.1) 11/09/17 13:05 INR 1.1 11/09/17 13:05 Sodium 141 mmol/l (132-148) 11/11/17 04:40 Potassium 5.1 MMOL/L (3.6-5.0) H 11/11/17 04:40 Chloride 106 mmol/L (98-107) 11/11/17 04:40 Carbon Dioxide 31 mmol/L (22-30) H 11/11/17 04:40 Anion Gap 9 (10-20) L 11/11/17 04:40 BUN 23 mg/dl (9-20) H 11/11/17 04:40 Creatinine 1.2 mg/dl (0.8-1.5) 11/11/17 04:40 Est GFR ( Amer) > 60 11/11/17 04:40 Est GFR (Non-Af Amer) > 60 11/11/17 04:40 POC Glucose (mg/dL) 141 mg/dL (65-110) H 11/11/17 11:00 Random Glucose 184 mg/dL (75-110) H 11/11/17 04:40 Calcium 11.4 mg/dL (8.4-10.2) H 11/11/17 04:40 Total Bilirubin 0.4 mg/dl (0.2-1.3) 11/10/17 08:32 AST 19 U/L (17-59) 11/10/17 08:32 ALT 26 U/L (21-72) 11/10/17 08:32 Alkaline Phosphatase 107 U/L (38-126) 11/10/17 08:32 Total Protein 6.9 G/DL (6.3-8.2) 11/10/17 08:32 Albumin 3.5 g/dL (3.5-5.0) 11/10/17 08:32 Globulin 3.4 gm/dL (2.2-3.9) 11/10/17 08:32 Albumin/Globulin Ratio 1.0 (1.0-2.1) 11/10/17 08:32 Urine Opiates Screen Negative (NEGATIVE) 11/09/17 13:05 Urine Methadone Screen Negative (NEGATIVE) 11/09/17 13:05 Ur Barbiturates Screen Negative (NEGATIVE) 11/09/17 13:05 Ur Phencyclidine Scrn Negative (NEGATIVE) 11/09/17 13:05 Ur Amphetamines Screen Negative (NEGATIVE) 11/09/17 13:05 U Benzodiazepines Scrn Negative (NEGATIVE) 11/09/17 13:05 U Oth Cocaine Metabols Positive (NEGATIVE) H 11/09/17 13:05 U Cannabinoids Screen Negative (NEGATIVE) 11/09/17 13:05 Attending/Attestation - Attestation I have personally seen and examined this patient.: Yes I have fully participated in the care of the patient.: Yes I have reviewed all pertinent clinical information, including history, physical exam and plan: Yes Notes (Text): 1. COPD -acute on chronic exacerbation (improved) - d/c on tapering dose of steroid 2. Moderate Intermittent Asthma with exacerbation 3. URI -acute - prescribed azithromycin 250 mg PO daily 5 tabs 4. Lower Extremity Stasis Dematitis , Cellulitis ruled out -Lower extremity venous duplex - negative for DVT 5, Chronic Atrial Fibrillation with RVR
[2017-11-11 12:51] VITALS: BP 149/73; PULSE 82; TEMP 97.6
[2017-11-12 21:34] VITALS: O2SAT 96
== END 2017-11-11 15:45 | disposition home or self-care (01) ==
LOC: H.ER 04:41 → H.ERHOLD 10:57 → H.TEL 13:12
DX: J44.1 Chronic obstructive pulmonary disease with (acute) exacerbation (principal); I27.20 Pulmonary hypertension, unspecified; E11.40 Type 2 diabetes mellitus with diabetic neuropathy, unspecified; M10.9 Gout, unspecified; E78.5 Hyperlipidemia, unspecified; E78.00 Pure hypercholesterolemia, unspecified; Z23 Encounter for immunization; Z88.0 Allergy status to penicillin; I25.10 Atherosclerotic heart disease of native coronary artery without angina pectoris; Z86.73 Personal history of transient ischemic attack (TIA), and cerebral infarction without residual deficits; K29.70 Gastritis, unspecified, without bleeding; E21.3 Hyperparathyroidism, unspecified; I87.8 Other specified disorders of veins; F17.210 Nicotine dependence, cigarettes, uncomplicated; J06.9 Acute upper respiratory infection, unspecified; J45.21 Mild intermittent asthma with (acute) exacerbation; I48.2 Chronic atrial fibrillation; I87.2 Venous insufficiency (chronic) (peripheral); E11.51 Type 2 diabetes mellitus with diabetic peripheral angiopathy without gangrene; Z86.711 Personal history of pulmonary embolism; F14.10 Cocaine abuse, uncomplicated; F41.9 Anxiety disorder, unspecified; F32.9 Major depressive disorder, single episode, unspecified; Z98.61 Coronary angioplasty status; I11.0 Hypertensive heart disease with heart failure; I50.9 Heart failure, unspecified
CPT/HCPCS: 36415; 71045; 80048; 80053; 80324; 80345; 80346; 80349; 80353; 80358; 80361; 82948; 83992; 85025; 85610; 90471; 93005; 93970; 94640; 96374; 99285; G0378; J2920; Q2035

== ENCOUNTER 2017-11-18 03:43 | Emergency (ER) | payer MEDICAID ==
[2017-11-18 03:44] VITALS: PULSE 98; BMI 34.9
[2017-11-18 03:56] VITALS: TEMP 98.2
[2017-11-18] MEDS ORDERED: Albuterol-Ipratrop 3 mg / 0.5 (3 ml) UD INH STA (03:59)
--- NOTE | 2017-11-18 04:07 | ED PDOC ---
HPI: SOB/CHF/COPD Time Seen by Provider: 11/18/17 03:54 Chief Complaint (Nursing): Shortness Of Breath Chief Complaint (Provider): shortness of breath History Per: Patient History/Exam Limitations: no limitations Onset/Duration Of Symptoms: Hrs (x1) Current Symptoms Are (Timing): Still Present Additional Complaint(s): Ignacio Soni is a 67 year old male, with a past medical history of COPD, CAD, HTN, A-fib and cocaine abuse, who was brought to the emergency department by EMS complaining of shortness of breath onset x1 hr [employer]. Patient is non domicile and was admitted approximately x1 week ago for similar presentation. He is also complaining of some chest tightness and wheezing. Patient reports some chest discomfort earlier today but none at present. No further medical complaints. PMD: None provided. Past Medical History Reviewed: Historical Data, Nursing Documentation, Vital Signs Vital Signs: Last Vital Signs Temp 98.2 F 11/18/17 03:53 Pulse 93 H 11/18/17 03:53 Resp 20 11/18/17 03:53 BP 182/111 H 11/18/17 03:53 Pulse Ox 95 11/18/17 03:53 - Medical History PMH: Anxiety, Asthma, Atrial Fibrillation, Bronchitis, CAD, Cardia Arrhythmia, CHF, COPD, CVA, Depression, Diabetes, Deep Vein Thrombosis, Gastritis, HTN, Hypercholesterolemia, Hyperlipidemia, Hyperthyroidism, Peripheral Edema, Pneumo faizan, Pulmonary Embolism Denies: HIV, Chronic Kidney Disease - Surgical History Surgical History: No Surg Hx - Family History Family History: States: [place], CAD, Diabetes, Hypertension (mother) - Social History Current smoker - smoking cessation education provided: Yes Drugs: Cocaine - Immunization History Hx Tetanus Toxoid Vaccination: No Hx Influenza Vaccination: No Hx Pneumococcal Vaccination: No - Home Medications Home Medications: Ambulatory Orders Medication Instructions Recorded Aspirin [Aspirin Chewable] 81 mg PO DAILY #30 chew 08/26/17 Atorvastatin [Lipitor] 40 mg PO DAILY #30 tab 08/26/17 Digoxin 0.125 mg PO DAILY 30 Days #30 tab 08/26/17 Gabapentin [Neurontin] 300 mg PO Q12 #60 cap 08/26/17 GlipiZIDE [Glucotrol] 5 mg PO ACB #120 tab 08/26/17 Ipratropium [Atrovent HFA] 1 puff IH Q6 PRN #1 inhaler 07/20/18 Tiotropium [Spiriva] 18 mcg IH DAILY #30 cap 08/26/17 Colchicine 0.6 mg PO DAILY 09/13/17 Losartan [Cozaar] 100 mg PO DAILY 09/13/17 Albuterol Sulfate [Ventolin Hfa] 2 puff IH Q6 PRN 11/09/17 [id number] CD [Cardizem CD] 240 mg PO DAILY 11/09/17 metFORMIN [glucOPHAGE] 500 mg PO BID 11/09/17 Apixaban [Eliquis] 5 mg PO Q12 #60 tablet 11/11/17 Azithromycin [Zithromax] 250 mg PO DAILY 5 Days #5 tab 11/11/17 Prednisone 10 mg PO DAILY 4 Days #10 tab.ds.pk 11/11/17 Albuterol HFA [Ventolin HFA 90 1 - 2 puff IH Q6 PRN #1 inhaler 11/18/17 mcg/actuation (8 g)] Methylprednisolone [Medrol Dosepak] 4 mg PO ASDIR #1 pkg 11/18/17 - Allergies Allergies/Adverse Reactions: Allergies Allergy/AdvReac Type Severity Reaction Status Date / Time Penicillins Allergy RASH Verified 11/18/17 03:52 Review of Systems ROS Statement: Except As Marked, All Systems Reviewed And Found Negative Cardiovascular: Negative for: Chest Pain Respiratory: Positive for: Shortness of Breath, Wheezing, Other (chest tightness) Physical Exam - Reviewed Nursing Documentation Reviewed: Yes Vital Signs Reviewed: Yes - Physical Exam Appears: Positive for: In Acute Distress (mild respiratory distress) Head Exam: Positive for: ATRAUMATIC, NORMAL INSPECTION, NORMOCEPHALIC Skin: Positive for: Normal Color, Warm, Dry Eye Exam: Positive for: Normal appearance, EOMI, PERRL Neck: Positive for: Painless ROM Cardiovascular/Chest: Positive for: Irregularly Irregular (regular rate) Respiratory: Positive for: Wheezing (bilateral diffused expiratory), Respiratory Distress (mild) Gastrointestinal/Abdominal: Positive for: Normal Exam, Soft. Negative for: T enderness Back: Positive for: Normal Inspection. Negative for: Vertebral Tenderness Extremity: Positive for: Normal ROM (upper and lower extremities). Negative for: Deformity, Swelling Neurologic/Psych: Positive for: Alert, Oriented - Laboratory Results Result Diagrams: 11/18/17 04:07 11/18/17 04:47 - ECG O2 Sat by Pulse Oximetry: 95 (RA) Pulse Ox Interpretation: Normal Medical Decision Making Medical Decision Making: Time: 03:54 Initial Impression: 67 y/o male with COPD exacerbation. Initial Plan: --EKG --B-type Natriuretic Peptide --CMP --Drug screen, urine --Magnesium --Troponin I --CBC w/ differential --PTT --PT --Duoneb 9 ml INH --SOLU-medrol 125 mg IVP --Reevaluation 06:25 -Patient reports marked improvement of symptoms. Labs shows no clinical significant abnormalities. CXR shows no active diseases. Patient is medically stable for discharge home. Diagnosis of COPD exacerbation. Scribe Attestation: Documented by Jose Guadalupe Kuhn, acting as a scribe for Huseyin Peters MD. Provider Scribe Attestation: All medical record entries made by the Scribe were at my direction and personally dictated by me. I have reviewed the chart and agree that the record accurately reflects my personal performance of the history, physical exam, me dical decision making, and the department course for this patient. I have also personally directed, reviewed, and agree with the discharge instructions and disposition. Disposition - Clinical Impression Clinical Impression: COPD exacerbation - Disposition Disposition: Routine/Home Disposition Time: 06:25 Condition: STABLE Prescriptions: Albuterol HFA [Ventolin HFA 90 mcg/actuation (8 g)] 1 - 2 puff IH Q6 PRN #1 inhaler PRN Reason: Shortness Of Breath Methylprednisolone [Medrol Dosepak] 4 mg PO ASDIR #1 pkg Instructions: Chronic Obstructive Pulmonary Disease (COPD), Including Emphysema Forms: [employer] (Mosotho) Print Language: SURINAMESE
[2017-11-18] MEDS ORDERED: Albuterol-Ipratrop 3 mg / 0.5 (3 ml) UD ONE ×2 (04:10→04:11)
[2017-11-18 04:31] LABS: BASO % 0.2 % (0.0-2.0); EOS # 0.2 K/uL (0.0-0.7); EOS % 1.6 % (0.0-4.0); HEMOGLOBIN 13.3 g/dL (12.0-18.0); LYMPH % 17.3 % (20.0-40.0); MEAN CELL VOLUME 89.3 fl (80.0-94.0); MEAN CORPUSCULAR HEMOGLOBIN 29.1 pg (27.0-31.0); MEAN CORPUSCULAR HGB CONC 32.6 g/dL (33.0-37.0); MEAN PLATELET VOLUME 9.7 fl (7.2-11.7); MONO % 8.9 % (0.0-10.0); NEUT # 8.3 K/uL (1.8-7.0); NRBC % 0.1 % (0.0-0.0); RBC 4.58 Mil/uL (4.40-5.90); RED CELL DISTRIBUTION WIDTH 15.5 % (11.5-14.5); WHITE BLOOD COUNT 11.5 K/uL (4.8-10.8)
[2017-11-18 05:01] LABS: ALB/GLOB RATIO 0.9 (1.0-2.1); ALBUMIN 3.4 g/dL (3.5-5.0); ALT/SGPT 18 U/L (21-72); AST/SGOT 19 U/L (17-59); BLOOD UREA NITROGEN 25 mg/dl (9-20); CALCIUM 10.8 mg/dL (8.4-10.2); GFR NON-AFRICAN AMERICAN 44
[2017-11-18 05:07] LABS: B-TYPE NATRIURETIC PEPTIDE 448 pg/ml (0-900)
[2017-11-18 06:26] VITALS: BP 123/57; PULSE 89
[2017-11-18 06:28] VITALS: RESP 18
[2017-11-18 06:30] VITALS: O2SAT 95
--- NOTE | 2017-11-18 08:37 | RAD ---
Date of service: 11/18/2017 HISTORY: chest pain COMPARISON: Portable chest 11/10/2017. FINDINGS: LUNGS: No active pulmonary disease. PLEURA: No significant pleural effusion identified, no pneumothorax apparent. CARDIOVASCULAR: Stable cardiac silhouette. No pulmonary vascular congestion. OSSEOUS STRUCTURES: No significant abnormalities. VISUALIZED UPPER ABDOMEN: Normal. OTHER FINDINGS: None. IMPRESSION: No interval acute cardiopulmonary disease appreciated. Stable cardiac silhouette noted.
--- NOTE | 2017-11-18 10:19 | CARD ---
APPROVED REPORT Date of service: 11/18/2017 EKG Measurement Heart [id number] <Conclusion> Atrial fibrillation Abnormal ECG
== END 2017-11-18 06:28 | disposition home or self-care (01) ==
LOC: H.ER 03:43
DX: J44.1 Chronic obstructive pulmonary disease with (acute) exacerbation (principal); E05.90 Thyrotoxicosis, unspecified without thyrotoxic crisis or storm; E11.9 Type 2 diabetes mellitus without complications; E78.00 Pure hypercholesterolemia, unspecified; F14.10 Cocaine abuse, uncomplicated; I11.0 Hypertensive heart disease with heart failure; I25.10 Atherosclerotic heart disease of native coronary artery without angina pectoris; Z79.01 Long term (current) use of anticoagulants; Z79.84 Long term (current) use of oral hypoglycemic drugs; Z86.711 Personal history of pulmonary embolism; Z88.0 Allergy status to penicillin
CPT/HCPCS: 71045; 80053; 83735; 83880; 84484; 85025; 93005; 94640; 96374; 99284; J2930

== ENCOUNTER 2018-01-10 14:43 | Observation (INO) | payer MEDICAID ==
[2018-01-10 14:43] VITALS: PULSE 81; BMI 36.2
--- NOTE | 2018-01-10 16:31 | ED PDOC ---
Lower Extremity Pain/Injury Time Seen by Provider: 01/10/18 15:54 Chief Complaint (Nursing): Lower Extremity Problem/Injury Chief Complaint (Provider): Lower Extremity Problem/Injury History Per: Patient History/Exam Limitations: no limitations Onset/Duration Of Symptoms: Days (x1 day) Additional Complaint(s): Ignacio Soni is a 67 year old male with a past medical history of HTN, COPD, CHF, CVA and anxiety, who presents to the emergency department complaining of having a draining wound on the left lower leg. Patient is noted to be a poor historian but states he noticed it yesterday. Patient is ambulating but with difficulty due to leg swelling. PMD: Dr. Nya Solis Past Medical History Reviewed: Historical Data, Nursing Documentation, Vital Signs Vital Signs: Last Vital Signs Temp 97.7 F 01/10/18 14:48 Pulse 79 01/10/18 14:48 Resp 19 01/10/18 14:48 BP 142/69 01/10/18 14:48 Pulse Ox 98 01/10/18 14:48 - Medical History PMH: Anxiety, Asthma, Atrial Fibrillation, Bronchitis, CAD, Cardia Arrhythmia, CHF, COPD, CVA, Depression, Diabetes, Deep Vein Thrombosis, Gastritis, HTN, Hypercholesterolemia, Hyperlipidemia, Hyperthyroidism, Peripheral Edema, Pneumonia, Pulmonary Embolism Denies: HIV, Chronic Kidney Disease - Family History Family History: States: [place], CAD, Diabetes, Hypertension (mother) - Immunization History Hx Tetanus Toxoid Vaccination: No Hx Influenza Vaccination: No Hx Pneumococcal Vaccination: No - Home Medications Home Medications: Ambulatory Orders Medication Instructions Recorded RX: Digoxin 0.125 mg PO DAILY 30 Days #30 tab 08/26/17 RX: Colchicine 0.6 mg PO DAILY 09/13/17 RX: Losartan [Cozaar] 100 mg PO DAILY 09/13/17 RX: diltiaZEM CD [Cardizem CD] 240 mg PO DAILY 11/09/17 RX: Albuterol Sulfate [Ventolin 2 puff IH Q6 PRN 01/03/18 Hfa] RX: GlipiZIDE [Glucotrol] 5 mg PO DAILY 01/03/18 RX: Ipratropium [Atrovent HFA] 1 puff IH Q6 PRN 01/03/18 RX: Apixaban [Eliquis] 5 mg PO Q12 tab 01/04/18 RX: Aspirin [Aspirin Chewable] 81 mg PO DAILY chew 01/04/18 RX: Atorvastatin [Lipitor] 40 mg PO DAILY tab 01/04/18 RX: Gabapentin [Neurontin] 300 mg PO Q12 cap 01/04/18 RX: metFORMIN [glucOPHAGE] 500 mg PO BID tab 01/04/18 Methylprednisolone [Medrol Dose 4 mg PO ASDIR 01/10/18 Pack (21 tabs)] - Allergies Allergies/Adverse Reactions: Allergies Allergy/AdvReac Type Severity Reaction Status Date / Time Penicillins Allergy RASH Verified 01/10/18 14:54 Review of Systems ROS Statement: Except As Marked, All Systems Reviewed And Found Negative Respiratory: Positive for: Cough Musculoskeletal: Positive for: Leg Pain (left lower leg pain and swelling ) Physical Exam - Reviewed Nursing Documentation Reviewed: Yes Vital Signs Reviewed: Yes - Physical Exam Appears: Positive for: Non-toxic, No Acute Distress Head Exam: Positive for: ATRAUMATIC, NORMOCEPHALIC Skin: Positive for: Normal Color Cardiovascular/Chest: Positive for: Regular Rate, Rhythm Respiratory: Positive for: Wheezing. Negative for: Crackles, Respiratory Distress Extremity: Positive for: Pedal Edema (2+ pedal edema extending to knee), Swelling (whole left leg), Other (Right lower leg: mild swelling (-) wounds or drainage; Left lower leg: erythematou and tender with swelling and open wound to lateral aspect, draining serous fluid) - Laboratory Results Result Diagrams: 01/10/18 17:00 01/10/18 17:00 - ECG O2 Sat by Pulse Oximetry: 98 (RA) Pulse Ox Interpretation: Normal Medical Decision Making Medical Decision Making: Time: 16:44 Plan: --CMP --B-type natriuretic peptide --CBC with differential --Blood culture --Ultrasound Time: 17:59 Ultrasound Findings: There is normal flow, compressibility, and augmentation of the left common femoral, femoral, and popliteal veins. The left posterior tibial veins appear patent. Incidental note is made 1.7 x 0.6 x 1.3 cm left inguinal lymph node with fatty hilum. Impression: No evidence of deep venous thrombosis in the left lower extremity. 19:00 Provider discussed case with Dr. Aguilar, hospitalist, who notified resident and has accepted for admission. Patient is given IV ancef and IV Vanco. --- Scribe Attestation: Documented by Micha Horton, acting as a scribe for Rena Heredia PA-C. Provider Scribe Attestation: All medical record entries made by the Scribe were at my direction and personally dictated by me. I have reviewed the chart and agree that the record accurately reflects my personal performance of the history, physical exam, medical decision making, and the department course for this patient. I have also personally directed, reviewed, and agree with the discharge instructions and dis position. Disposition - Clinical Impression Clinical Impression: Cellulitis, Lymphedema - Patient ED Disposition Is Patient to be Admitted: Yes Discussed With DrErasmo: Maureen Aguilar Doctor Will See Patient In The: Hospital Counseled Patient/Family Regarding: Studies Performed, Diagnosis - Disposition Disposition Time: 19:59 Condition: STABLE
[2018-01-10 17:21] LABS: BASO # 0.1 K/uL (0.0-0.2); BASO % 0.4 % (0.0-2.0); EOS # 0.2 K/uL (0.0-0.7); EOS % 1.6 % (0.0-4.0); HEMOGLOBIN 12.6 g/dL (12.0-18.0); LYMPH # 1.7 K/uL (1.0-4.3); LYMPH % 13.4 % (20.0-40.0); MEAN CELL VOLUME 86.7 fl (80.0-94.0); MEAN CORPUSCULAR HEMOGLOBIN 26.9 pg (27.0-31.0); MEAN PLATELET VOLUME 10.2 fl (7.2-11.7); MONO # 1.1 K/uL (0.0-0.8); MONO % 8.2 % (0.0-10.0); NEUT # 9.9 K/uL (1.8-7.0); NEUT % 76.4 % (50.0-75.0); RBC 4.69 Mil/uL (4.40-5.90); RED CELL DISTRIBUTION WIDTH 16.8 % (11.5-14.5); WHITE BLOOD COUNT 12.9 K/uL (4.8-10.8)
[2018-01-10 17:42] LABS: BLOOD UREA NITROGEN 24 mg/dl (9-20)
[2018-01-10 17:43] LABS: ALB/GLOB RATIO 1.3 (1.0-2.1); ALBUMIN 3.8 g/dL (3.5-5.0); B-TYPE NATRIURETIC PEPTIDE 264 pg/ml (0-900); CALCIUM 10.9 mg/dL (8.4-10.2); GFR NON-AFRICAN AMERICAN 55
[2018-01-10 17:44] LABS: ALT/SGPT 29 U/L (21-72); AST/SGOT 28 U/L (17-59)
--- NOTE | 2018-01-10 18:02 | US ---
Left lower extremity ultrasound Indication: LLE swelling Technique: Duplex ultrasound evaluation of the left lower extremity Comparison: None available Findings: There is normal flow, compressibility, and augmentation of the left common femoral, femoral, and popliteal veins. The left posterior tibial veins appear patent. Incidental note is made 1.7 x 0.6 x 1.3 cm left inguinal lymph node with fatty hilum. Impression: No evidence of deep venous thrombosis in the left lower extremity.
[2018-01-10] MEDS ORDERED: ceFAZolin 1 GM in Sodium Chloride 0.9% 100 ML IVPB ONE (18:47)
[2018-01-10] MEDS ORDERED: Vancomycin 1 g Inj ONE (19:12)
[2018-01-10] MEDS ORDERED: Albuterol-Ipratrop 3 mg / 0.5 (3 ml) UD INH STA (19:32)
[2018-01-10] MEDS ORDERED: IPRATROPIUM IH PRN (20:58)
--- NOTE | 2018-01-10 21:07 | CP.PCM.HP ---
<Sultan Ramon - Last Filed: 01/11/18 00:58> History of Present Illness - History of Present Illness History of Present Illness: CC: B/L lower leg redness and pain HPI: 67 year old male with PMHx of DMII, asthma, COPD, CVA, HTN, a fib, substance abuse (hx of cocaine use and smoking) presented to [facility] ED with complaints of B/L lower leg (L>R) pain, redness and swelling for 5 days. Patient reports left leg wound is oozing for few days. Denies any trauma to the legs. Patient reports felling chills in the ED but denies any prior fever or chills. Denies any abdominal pain, nausea, vomiting, chest pain or dizziness. PMHx: COPD, Atrial fibrillation, CVA, HTN, HLD, PVD, NIDDM2, gout, depression, cocaine abuse PSHx: bunionectomy, cardiac cath June 2016, I&D upper back 08/2017 FHx: HTN and DM Social hx: hx of cocaine abuse, smokes 3-4 cigarettes a day, (50+pack year history) drinks socially (2-3x a week) Allergies: penicillin Medications: reviewed Present on Admission - Present on Admission Any Indicators Present on Admission: Yes History of Uncontrolled Diabetes: Yes Review of Systems - Review of Systems Review of Systems: All 12 systems reviewed and negative except as mentioned in HPI Past Patient History - Infectious Disease Hx of Infectious Diseases: None - Tetanus Immunizations Tetanus Immunization: Unknown - Past Medical History & Family History Past Medical History?: Yes - Past Social History Smoking Status: Light Smoker < 10 Cigarettes Daily - CARDIAC Hx Atrial Fibrillation: Yes Hx Cardia Arrhythmia: Yes Hx Congestive Heart Failure: Yes Hx Hypercholesterolemia: Yes Hx Hypertension: Yes Hx Peripheral Edema: Yes - PULMONARY Hx Asthma: Yes Hx Bronchitis: Yes Hx Chronic Obstructive Pulmonary Disease (COPD): Yes Hx Pneumonia: Yes Hx Pulmonary Embolism: Yes - NEUROLOGICAL Hx Neurological Disorder: Yes HX Cerebrovascular Accident: Yes (cerebellar accident) Hx Vertigo: Yes Other/Comment: Hx neuropathy - HEENT Hx HEENT Problems: No - RENAL Hx Chronic Kidney Disease: No - ENDOCRINE/METABOLIC Hx Hyperthyroidism: Yes - HEMATOLOGICAL/ONCOLOGICAL Hx Human Immunodeficiency Virus (HIV): No - INTEGUMENTARY Hx Dermatological Problems: Yes Hx Cellulitis: Yes Other/Comment: Hx chronic right foot ulcer - MUSCULOSKELETAL/RHEUMATOLOGICAL Hx Musculoskeletal Disorders: Yes Hx Back Pain: Yes Hx Falls: No Hx Gout: Yes - GASTROINTESTINAL Hx Gastritis: Yes - GENITOURINARY/GYNECOLOGICAL Hx Genitourinary Disorders: No - PSYCHIATRIC Hx Anxiety: Yes Hx Depression: Yes - SURGICAL HISTORY Hx Surgeries: Yes Hx Herniorrhaphy: Yes Hx Orthopedic Surgery: Yes (Bunionectomy) - ANESTHESIA Hx Anesthesia: Yes Hx Anesthesia Reactions: No Meds Allergies/Adverse Reactions: Allergies Allergy/AdvReac Type Severity Reaction Status Date / Time Penicillins Allergy RASH Verified 01/10/18 14:54 Physical Exam - Constitutional Appears: Non-toxic, No Acute Distress, Chronically Ill - Head Exam Head Exam: ATRAUMATIC, NORMOCEPHALIC - Eye Exam Eye Exam: EOMI, Normal appearance - ENT Exam ENT Exam: Mucous Membranes Moist - Neck Exam Neck exam: Positive for: Full Rom, Normal Inspection. Negative for: Meningismus - Respiratory Exam Respiratory Exam: Prolonged Expiratory Phase, Wheezes, NORMAL BREATHING PATTERN. absent: Accessory Muscle Use - Cardiovascular Exam Cardiovascular Exam: Irregular Rhythm, +S1, +S2 - GI/Abdominal Exam GI & Abdominal Exam: Normal Bowel Sounds, Soft. absent: Tenderness - Extremities Exam Extremities exam: Positive for: pedal edema (2+), pedal pulses present. Negative for: calf tenderness Additional comments: Mild erythema, warmth and swelling of B/L lower leg extending up to knees (L>R). Left leg has one 0.4 mm open lesion on lateral aspects of left leg. B/L scaly dermatitis of lower leg. No calf tenderness. Neurovascular intact. Full ROM. - Neurological Exam Neurological exam: Alert, Oriented x3 - Psychiatric Exam Psychiatric exam: Normal Affect, Normal Mood - Skin Skin Exam: Dry, Normal Color, Warm Results - Vital Signs Recent Vital Signs: Last Vital Signs Temp 97.7 F 01/10/18 19:33 Pulse 70 01/10/18 19:33 Resp 20 01/10/18 19:33 BP 136/67 01/10/18 19:33 Pulse Ox 98 01/10/18 20:59 - Labs Result Diagrams: 01/10/18 17:00 01/10/18 17:00 Labs: Laboratory Results - last 24 hr 01/10/18 01/10/18 17:00 17:00 WBC 12.9 H RBC 4.69 Hgb 12.6 Hct 40.7 MCV 86.7 MCH 26.9 L MCHC 31.0 L RDW 16.8 H Plt Count 192 MPV 10.2 Neut % (Auto) 76.4 H Lymph % (Auto) 13.4 L Jefferson % (Auto) 8.2 Eos % (Auto) 1.6 Baso % (Auto) 0.4 Neut # (Auto) 9.9 H Lymph # (Auto) 1.7 Jefferson # (Auto) 1.1 H Eos # (Auto) 0.2 Baso # (Auto) 0.1 Sodium 141 Potassium 4.5 Chloride 106 Carbon Dioxide 28 Anion Gap 12 BUN 24 H Creatinine 1.3 Est GFR ( Amer) > 60 Est GFR (Non-Af Amer) 55 Random Glucose 83 Calcium 10.9 H Total Bilirubin 1.0 AST 28 ALT 29 Alkaline Phosphatase 85 NT-Pro-B Natriuret Pep 264 Total Protein 6.8 Albumin 3.8 Globulin 3.0 Albumin/Globulin Ratio 1.3 Assessment & Plan - Assessment and Plan (Free Text) Assessment: 67 year old male with PMHx of DMII, asthma, COPD, CVA, HTN, a fib, substance abuse (hx of cocaine use)presented to [facility] ED with complaints of B/L lower leg pain, redness and swelling for 5 days. Patient is admitted for B/L lower leg cellulitis. Plan: B/L lower leg statis dermatitis with superimposed cellulitis -Duplex US of lower leg is negative for DVT -WBC: 12.9, afebrile with stable vitals -Received 1 dose of ancef 1gm and Vancomycin 1 gm in ED -c/w Vancomycin 1 gm IVPB Q12 hr -Start Cefepime 2 gm IVPB Q12 -f/u blood cx JANET -acute on chronic (CKD) -start IVFs with gentle hydration -follow up AM labs Afib with RVR -chronic, and uncontrolled -likely worsened 2/2 to pulmonary disease -Echo (09/2017): LVH with EF 60-65%. Mod-severe pulmonary HTN -c/w with home meds NIDDM -chronic, uncontrolled -HbA1c 10.6 (08/2017) -c/w with home meds, hold metformin -low dose correcting insulin -hypoglycemia protocol HTN/HLD -chronic -c/w with home meds DVT proplylaxis -c/w apixaban Plan d/w with Dr. Jeff Navarro, pgy-2 <Maureen Aguilar - Last Filed: 01/11/18 18:34> Results - Vital Signs Recent Vital Signs: Last Vital Signs Temp 88.6 F L 01/11/18 12:10 Pulse 78 01/11/18 12:10 Resp 19 01/11/18 12:10 BP 140/78 01/11/18 12:10 Pulse Ox 98 01/11/18 12:10 - Labs Result Diagrams: 01/11/18 04:55 01/11/18 04:55 Labs: Laboratory Results - last 24 hr 01/10/18 01/10/18 01/11/18 17:00 23:09 04:55 WBC RBC Hgb Hct MCV MCH MCHC RDW Plt Count MPV Neut % (Auto) Lymph % (Auto) Jefferson % (Auto) Eos % (Auto) Baso % (Auto) Neut # (Auto) Lymph # (Auto) Jefferson # (Auto) Eos # (Auto) Baso # (Auto) Sodium 140 Potassium 4.2 Chloride 111 H Carbon Dioxide 27 Anion Gap 6 L BUN 20 Creatinine 1.2 Est GFR ( Amer) > 60 Est GFR (Non-Af Amer) > 60 POC Glucose (mg/dL) 107 Random Glucose 83 91 Calcium 10.2 01/11/18 01/11/18 01/11/18 04:55 06:25 11:44 WBC 10.2 RBC 4.31 L Hgb 11.8 L Hct 37.3 MCV 86.5 MCH 27.3 MCHC 31.6 L RDW 16.6 H Plt Count 170 MPV 9.8 Neut % (Auto) 72.5 Lymph % (Auto) 15.2 L Jefferson % (Auto) 10.1 H Eos % (Auto) 1.9 Baso % (Auto) 0.3 Neut # (Auto) 7.4 H Lymph # (Auto) 1.6 Jefferson # (Auto) 1.0 H Eos # (Auto) 0.2 Baso # (Auto) 0.0 Sodium Potassium Chloride Carbon Dioxide Anion Gap BUN Creatinine Est GFR ( Amer) Est GFR (Non-Af Amer) POC Glucose (mg/dL) 94 161 H Random Glucose Calcium Attending/Attestation - Attestation I have personally seen and examined this patient.: Yes I have fully participated in the care of the patient.: Yes I have reviewed all pertinent clinical information: Yes Notes (Text): 01/11/18 18:34 agree with findings and plan as above.
[2018-01-10] MEDS: Albuterol-Ipratrop 3 mg / 0.5 (3 ml) UD INH SCH (22:02)
[2018-01-10] MEDS ORDERED: Albuterol-Ipratrop 3 mg / 0.5 (3 ml) UD ONE (22:03)
[2018-01-11] MEDS ORDERED: Dextrose 50% SYRINGE Inj (50 ml) IV PRN (00:56)
[2018-01-11] MEDS ORDERED: Glucagon Recombinant 1 mg Inj IM PRN (00:56)
[2018-01-11] MEDS ORDERED: Sodium Chloride 0.9% 1,000 ML IV SCH (01:00)
[2018-01-11] MEDS ORDERED: Albuterol-Ipratrop 3 mg / 0.5 (3 ml) UD ONE ×2 (01:54→09:07)
[2018-01-11] MEDS: Albuterol-Ipratrop 3 mg / 0.5 (3 ml) UD INH SCH ×2 (01:59→09:07)
[2018-01-11 04:58] LABS: BASO % 0.3 % (0.0-2.0); EOS # 0.2 K/uL (0.0-0.7); EOS % 1.9 % (0.0-4.0); HEMOGLOBIN 11.8 g/dL (12.0-18.0); LYMPH # 1.6 K/uL (1.0-4.3); LYMPH % 15.2 % (20.0-40.0); MEAN CELL VOLUME 86.5 fl (80.0-94.0); MEAN CORPUSCULAR HEMOGLOBIN 27.3 pg (27.0-31.0); MEAN CORPUSCULAR HGB CONC 31.6 g/dL (33.0-37.0); MEAN PLATELET VOLUME 9.8 fl (7.2-11.7); MONO % 10.1 % (0.0-10.0); NEUT # 7.4 K/uL (1.8-7.0); NEUT % 72.5 % (50.0-75.0); RBC 4.31 Mil/uL (4.40-5.90); RED CELL DISTRIBUTION WIDTH 16.6 % (11.5-14.5); WHITE BLOOD COUNT 10.2 K/uL (4.8-10.8)
[2018-01-11 05:20] LABS: BLOOD UREA NITROGEN 20 mg/dl (9-20); CALCIUM 10.2 mg/dL (8.4-10.2); GFR NON-AFRICAN AMERICAN > 60
[2018-01-11] MEDS: Insulin Regular 100 units/ml SC SCH ×2 (07:06→11:46)
[2018-01-11 07:40] VITALS: RESP 19
[2018-01-11] MEDS ORDERED: Vancomycin 1 g Inj ONE (07:47)
[2018-01-11] MEDS ORDERED: Pantoprazole 40 mg EC Tab PO SCH (09:00)
[2018-01-11] MEDS ORDERED: diltiaZEM 240 mg/24 Hours CD Cap PO SCH (09:00)
[2018-01-11] MEDS ORDERED: Cefepime 2 GM in Sodium Chloride 0.9% 100 ML IVPB SCH (09:00)
[2018-01-11] MEDS ORDERED: Digoxin 125 mcg (0.125 mg) Tab PO SCH (09:00)
--- NOTE | 2018-01-11 11:19 | CP.PCM.DIS ---
<Martínez Baldwin - Last Filed: 01/11/18 13:54> Provider - Provider Date of Admission: 01/10/18 18:49 Attending physician: Maureen Aguilar DO Time Spent in preparation of Discharge (in minutes): 30 Diagnosis - Discharge Diagnosis (1) Cellulitis Status: Acute Hospital Course - Lab Results Lab Results: Most Recent Lab Values WBC 10.2 K/uL (4.8-10.8) 01/11/18 04:55 RBC 4.31 Mil/uL (4.40-5.90) L 01/11/18 04:55 Hgb 11.8 g/dL (12.0-18.0) L 01/11/18 04:55 Hct 37.3 % (35.0-51.0) 01/11/18 04:55 MCV 86.5 fl (80.0-94.0) 01/11/18 04:55 MCH 27.3 pg (27.0-31.0) 01/11/18 04:55 MCHC 31.6 g/dL (33.0-37.0) L 01/11/18 04:55 RDW 16.6 % (11.5-14.5) H 01/11/18 04:55 Plt Count 170 K/uL (130-400) 01/11/18 04:55 MPV 9.8 fl (7.2-11.7) 01/11/18 04:55 Neut % (Auto) 72.5 % (50.0-75.0) 01/11/18 04:55 Lymph % (Auto) 15.2 % (20.0-40.0) L 01/11/18 04:55 [place] % (Auto) 10.1 % (0.0-10.0) H 01/11/18 04:55 Eos % (Auto) 1.9 % (0.0-4.0) 01/11/18 04:55 Baso % (Auto) 0.3 % (0.0-2.0) 01/11/18 04:55 Neut # (Auto) 7.4 K/uL (1.8-7.0) H 01/11/18 04:55 Lymph # (Auto) 1.6 K/uL (1.0-4.3) 01/11/18 04:55 [place] # (Auto) 1.0 K/uL (0.0-0.8) H 01/11/18 04:55 Eos # (Auto) 0.2 K/uL (0.0-0.7) 01/11/18 04:55 Baso # (Auto) 0.0 K/uL (0.0-0.2) 01/11/18 04:55 Sodium 140 mmol/l (132-148) 01/11/18 04:55 Potassium 4.2 MMOL/L (3.6-5.0) 01/11/18 04:55 Chloride 111 mmol/L (98-107) H 01/11/18 04:55 Carbon Dioxide 27 mmol/L (22-30) 01/11/18 04:55 Anion Gap 6 (10-20) L 01/11/18 04:55 BUN 20 mg/dl (9-20) 01/11/18 04:55 Creatinine 1.2 mg/dl (0.8-1.5) 01/11/18 04:55 Est GFR ( Amer) > 60 01/11/18 04:55 Est GFR (Non-Af Amer) > 60 01/11/18 04:55 Random Glucose 91 mg/dL (75-110) 01/11/18 04:55 Calcium 10.2 mg/dL (8.4-10.2) 01/11/18 04:55 Total Bilirubin 1.0 mg/dl (0.2-1.3) 01/10/18 17:00 AST 28 U/L (17-59) 01/10/18 17:00 ALT 29 U/L (21-72) 01/10/18 17:00 Alkaline Phosphatase 85 U/L (38-126) 01/10/18 17:00 NT-Pro-B Natriuret Pep 264 pg/ml (0-900) 01/10/18 17:00 Total Protein 6.8 G/DL (6.3-8.2) 01/10/18 17:00 Albumin 3.8 g/dL (3.5-5.0) 01/10/18 17:00 Globulin 3.0 gm/dL (2.2-3.9) 01/10/18 17:00 Albumin/Globulin Ratio 1.3 (1.0-2.1) 01/10/18 17:00 - Hospital Course Hospital Course: 67M with PMHx of DMII, asthma, COPD, CVA, HTN, a fib, substance abuse (hx of cocaine use and smoking) presented to [facility] ED last night with complaints of B/L lower leg (L>R) pain, redness and swelling for 5 days. He was admitted to hospitalist service for b/l lower leg cellulitis. Venous duplex US of lower legs revealed no DVT. He presented with elevated leukocytes at 12.9 and after receiving vancomycin 1 gm and cefepime 2 gm this morning his white count was reduced to 10.2. The cellulitis in his legs improved since admission and his pain is controlled on his legs. He will be discharged today on keflex 500 mg PO Q12 for 10 days and his prescription was sent to [facility] pharmacy in the hospital. He will follow up at the [facility]. - Date & Time of H&P Date of H&P: 01/11/18 Time of H&P: 11:19 Discharge Exam - Head Exam Head Exam: ATRAUMATIC, NORMOCEPHALIC - Eye Exam Eye Exam: EOMI, Normal appearance - ENT Exam ENT Exam: Mucous Membranes Moist - Neck Exam Neck exam: Full Rom, Normal Inspection - Respiratory Exam Respiratory Exam: Prolonged Expiratory Phase, Wheezes, NORMAL BREATHING PATTERN - Cardiovascular Exam Cardiovascular Exam: Irregular Rhythm, +S1, +S2 - GI/Abdominal Exam GI & Abdominal Exam: Normal Bowel Sounds, Unremarkable - Extremities Exam Extremities exam: normal capillary refill, pedal edema (2+), pedal pulses present Additional comments: Mild erythema, warmth and swelling of B/L lower leg extending up to knees (L>R). Left leg has one 0.4 mm open lesion on lateral aspects of left leg. B/L scaly dermatitis of lower leg. No calf tenderness. Neurovascular intact. Full ROM. - Neurological Exam Neurological exam: Alert, Oriented x3 - Psychiatric Exam Psychiatric exam: Normal Affect, Normal Mood - Skin Skin Exam: Dry, Normal Color, Warm Discharge Plan - Discharge Medications Prescriptions: Cephalexin [cephalexin] 500 mg PO BID 10 Days #20 cap - Follow Up Plan Condition: STABLE Disposition: HOME/ ROUTINE Instructions: Cellulitis (DC), Cellulitis (GEN) Clinical Quality Measures - Date & Time of Discharge Summary Date of Discharge Summary: 01/11/18 Time of Discharge Summary: 11:38 <Jeff,Maureen K - Last Filed: 01/11/18 18:30> Provider - Provider Date of Admission: 01/10/18 18:49 Attending physician: Maureen Aguilar DO [facility] Course - Lab Results Lab Results: Micro Results 01/10/18 17:50 Blood-Venous Blood Culture - Preliminary NO GROWTH AFTER 24 HOURS 01/10/18 17:00 Blood Blood Culture - Preliminary NO GROWTH AFTER 24 HOURS Most Recent Lab Values WBC 10.2 K/uL (4.8-10.8) 01/11/18 04:55 RBC 4.31 Mil/uL (4.40-5.90) L 01/11/18 04:55 Hgb 11.8 g/dL (12.0-18.0) L 01/11/18 04:55 Hct 37.3 % (35.0-51.0) 01/11/18 04:55 MCV 86.5 fl (80.0-94.0) 01/11/18 04:55 MCH 27.3 pg (27.0-31.0) 01/11/18 04:55 MCHC 31.6 g/dL (33.0-37.0) L 01/11/18 04:55 RDW 16.6 % (11.5-14.5) H 01/11/18 04:55 Plt Count 170 K/uL (130-400) 01/11/18 04:55 MPV 9.8 fl (7.2-11.7) 01/11/18 04:55 Neut % (Auto) 72.5 % (50.0-75.0) 01/11/18 04:55 Lymph % (Auto) 15.2 % (20.0-40.0) L 01/11/18 04:55 [place] % (Auto) 10.1 % (0.0-10.0) H 01/11/18 04:55 Eos % (Auto) 1.9 % (0.0-4.0) 01/11/18 04:55 Baso % (Auto) 0.3 % (0.0-2.0) 01/11/18 04:55 Neut # (Auto) 7.4 K/uL (1.8-7.0) H 01/11/18 04:55 Lymph # (Auto) 1.6 K/uL (1.0-4.3) 01/11/18 04:55 [place] # (Auto) 1.0 K/uL (0.0-0.8) H 01/11/18 04:55 Eos # (Auto) 0.2 K/uL (0.0-0.7) 01/11/18 04:55 Baso # (Auto) 0.0 K/uL (0.0-0.2) 01/11/18 04:55 Sodium 140 mmol/l (132-148) 01/11/18 04:55 Potassium 4.2 MMOL/L (3.6-5.0) 01/11/18 04:55 Chloride 111 mmol/L (98-107) H 01/11/18 04:55 Carbon Dioxide 27 mmol/L (22-30) 01/11/18 04:55 Anion Gap 6 (10-20) L 01/11/18 04:55 BUN 20 mg/dl (9-20) 01/11/18 04:55 Creatinine 1.2 mg/dl (0.8-1.5) 01/11/18 04:55 Est GFR ( Amer) > 60 01/11/18 04:55 Est GFR (Non-Af Amer) > 60 01/11/18 04:55 POC Glucose (mg/dL) 161 mg/dL (65-110) H 01/11/18 11:44 Random Glucose 91 mg/dL (75-110) 01/11/18 04:55 Calcium 10.2 mg/dL (8.4-10.2) 01/11/18 04:55 Total Bilirubin 1.0 mg/dl (0.2-1.3) 01/10/18 17:00 AST 28 U/L (17-59) 01/10/18 17:00 ALT 29 U/L (21-72) 01/10/18 17:00 Alkaline Phosphatase 85 U/L (38-126) 01/10/18 17:00 NT-Pro-B Natriuret Pep 264 pg/ml (0-900) 01/10/18 17:00 Total Protein 6.8 G/DL (6.3-8.2) 01/10/18 17:00 Albumin 3.8 g/dL (3.5-5.0) 01/10/18 17:00 Globulin 3.0 gm/dL (2.2-3.9) 01/10/18 17:00 Albumin/Globulin Ratio 1.3 (1.0-2.1) 01/10/18 17:00 Attending/Attestation - Attestation I have personally seen and examined this patient.: Yes I have fully participated in the care of the patient.: Yes I have reviewed all pertinent clinical information, including history, physical exam and plan: Yes Notes (Text): 01/11/18 18:30 agree with findings and plan as above.
[2018-01-11 12:14] VITALS: BP 140/78; PULSE 78; TEMP 88.6; O2SAT 98
== END 2018-01-11 12:30 | disposition home or self-care (01) ==
LOC: H.ER 14:43 → H.ERHOLD 18:49
PROVIDERS: ADMIT Student in an Organized Health Care Education/Training Program; ATTEND Student in an Organized Health Care Education/Training Program
DX: L03.115 Cellulitis of right lower limb (principal); L03.116 Cellulitis of left lower limb; Z86.711 Personal history of pulmonary embolism; Z86.73 Personal history of transient ischemic attack (TIA), and cerebral infarction without residual deficits; J44.9 Chronic obstructive pulmonary disease, unspecified; I11.0 Hypertensive heart disease with heart failure; I50.9 Heart failure, unspecified; I25.10 Atherosclerotic heart disease of native coronary artery without angina pectoris; F32.9 Major depressive disorder, single episode, unspecified; E11.9 Type 2 diabetes mellitus without complications; E78.00 Pure hypercholesterolemia, unspecified; E78.5 Hyperlipidemia, unspecified; K29.70 Gastritis, unspecified, without bleeding; Z79.84 Long term (current) use of oral hypoglycemic drugs; Z79.01 Long term (current) use of anticoagulants; Z79.82 Long term (current) use of aspirin; F17.210 Nicotine dependence, cigarettes, uncomplicated; Z88.0 Allergy status to penicillin; L30.9 Dermatitis, unspecified; I48.91 Unspecified atrial fibrillation; F41.9 Anxiety disorder, unspecified; M10.9 Gout, unspecified
CPT/HCPCS: 80048; 80053; 82948; 83880; 85025; 87040; 93971; 96365; 96367; 96375; 99285; G0378; J0690; J0692; J7030

== ENCOUNTER 2018-01-13 14:23 | Emergency (ER) | payer MEDICAID ==
[2018-01-13 14:23] VITALS: PULSE 81; BMI 36.2
[2018-01-13 14:29] VITALS: RESP 20
[2018-01-13] MEDS ORDERED: Albuterol-Ipratrop 3 mg / 0.5 (3 ml) UD INH STA (15:09)
--- NOTE | 2018-01-13 15:10 | ED PDOC ---
Lower Extremity Pain/Injury Time Seen by Provider: 01/13/18 14:30 Chief Complaint (Nursing): Lower Extremity Problem/Injury Chief Complaint (Provider): Leg pain History Per: Patient Additional Complaint(s): Patient C/O bilateral leg pain today. Patient arrived with ambulance from his adult day care. Past Medical History Reviewed: Historical Data, Nursing Documentation, Vital Signs Vital Signs: Last Vital Signs Temp 97.7 F 01/13/18 14:25 Pulse 96 H 01/13/18 14:25 Resp 20 01/13/18 14:25 BP 163/71 H 01/13/18 14:25 Pulse Ox 97 01/13/18 14:25 - Medical History PMH: Anxiety, Asthma, Atrial Fibrillation, Bronchitis, CAD, Cardia Arrhythmia, CHF, COPD, CVA, Depression, Diabetes, Deep Vein Thrombosis, Gastritis, HTN, Hypercholesterolemia, Hyperlipidemia, Hyperthyroidism, Peripheral Edema, Pneumonia, Pulmonary Embolism Denies: HIV, Chronic Kidney Disease - Family History Family History: States: [place], CAD, Diabetes, Hypertension (mother) - Living Arrangements Living Arrangements: Senior Care/Assist Lv - Social History Current smoker - smoking cessation education provided: No Ex-Smoker (has not smoked in the last 12 months): No Alcohol: None Drugs: Denies - Immunization History Hx Tetanus Toxoid Vaccination: No Hx Influenza Vaccination: No Hx Pneumococcal Vaccination: No - Home Medications Home Medications: Ambulatory Orders Medication Instructions Recorded Digoxin 0.125 mg PO DAILY 30 Days #30 tab 08/26/17 Colchicine 0.6 mg PO DAILY 09/13/17 Losartan [Cozaar] 100 mg PO DAILY 09/13/17 [id number] CD [Cardizem CD] 240 mg PO DAILY 11/09/17 Albuterol Sulfate [Ventolin Hfa] 2 puff IH Q6 PRN 01/03/18 GlipiZIDE [Glucotrol] 5 mg PO DAILY 01/03/18 Ipratropium [Atrovent HFA] 1 puff IH Q6 PRN 01/03/18 Apixaban [Eliquis] 5 mg PO Q12 tab 01/04/18 Aspirin [Aspirin Chewable] 81 mg PO DAILY chew 01/04/18 Atorvastatin [Lipitor] 40 mg PO DAILY tab 01/04/18 Gabapentin [Neurontin] 300 mg PO Q12 cap 01/04/18 metFORMIN [glucOPHAGE] 500 mg PO BID tab 01/04/18 Methylprednisolone [Medrol Dose 4 mg PO ASDIR 01/10/18 Pack (21 tabs)] Cephalexin [cephalexin] 500 mg PO BID 10 Days #20 cap 01/11/18 Methylprednisolone [Medrol Dosepak] 4 mg PO ASDIR #1 pkg 01/19/18 - Allergies Allergies/Adverse Reactions: Allergies Allergy/AdvReac Type Severity Reaction Status Date / Time Penicillins Allergy RASH Verified 01/15/18 02:54 Review of Systems ROS Statement: Except As Marked, All Systems Reviewed And Found Negative Musculoskeletal: Positive for: Leg Pain Physical Exam - Reviewed Nursing Documentation Reviewed: Yes Vital Signs Reviewed: Yes - Physical Exam Appears: Positive for: Well, Non-toxic, No Acute Distress Head Exam: Positive for: ATRAUMATIC, NORMAL INSPECTION, NORMOCEPHALIC Skin: Positive for: Normal Color, Warm, DRY Eye Exam: Positive for: EOMI, Normal appearance, PERRL ENT: Positive for: Normal ENT Inspection Neck: Positive for: Normal, Painless ROM Cardiovascular/Chest: Positive for: Regular Rate, Rhythm Respiratory: Positive for: CNT, Normal Breath Sounds Gastrointestinal/Abdominal: Positive for: Normal Exam, Soft Back: Positive for: Normal Inspection Extremity: Positive for: Normal ROM Neurologic/Psych: Positive for: Alert, Oriented - Laboratory Results Result Diagrams: 01/13/18 17:08 01/13/18 15:40 - ECG O2 Sat by Pulse Oximetry: 97 Medical Decision Making Medical Decision Making: Labs and XR reviewed Disposition - Clinical Impression Clinical Impression: Lower extremity pain, bilateral - Patient ED Disposition Is Patient to be Admitted: No - Disposition Disposition: Routine/Home Disposition Time: 17:00 Condition: STABLE Instructions: Dependent Edema (DC) Forms: [employer] (Hebrew) Print Language: YEMENI
[2018-01-13] MEDS ORDERED: Albuterol-Ipratrop 3 mg / 0.5 (3 ml) UD ONE (15:22)
[2018-01-13 16:09] LABS: ALB/GLOB RATIO 1.1 (1.0-2.1); ALBUMIN 3.4 g/dL (3.5-5.0); ALT/SGPT 34 U/L (21-72); AST/SGOT 26 U/L (17-59); B-TYPE NATRIURETIC PEPTIDE 449 pg/ml (0-900); BLOOD UREA NITROGEN 17 mg/dl (9-20); CALCIUM 10.8 mg/dL (8.4-10.2); GFR NON-AFRICAN AMERICAN > 60
--- NOTE | 2018-01-13 17:11 | RAD ---
Date of service: 01/13/2018 HISTORY: SOB COMPARISON: 01/02/2018 TECHNIQUE: Chest PA and lateral FINDINGS: LUNGS: No active pulmonary disease. PLEURA: Resolution of small bilateral pleural effusions. CARDIOVASCULAR: No aortic atherosclerotic calcification present. Normal cardiac size. No pulmonary vascular congestion. OSSEOUS STRUCTURES: No significant abnormalities. VISUALIZED UPPER ABDOMEN: Normal. OTHER FINDINGS: None. IMPRESSION: No active disease.
[2018-01-13 17:13] LABS: BASO % 0.1 % (0.0-2.0); EOS % 0.1 % (0.0-4.0); HEMOGLOBIN 11.4 g/dL (12.0-18.0); LYMPH # 0.3 K/uL (1.0-4.3); LYMPH % 3.2 % (20.0-40.0); MEAN CELL VOLUME 87.7 fl (80.0-94.0); MEAN CORPUSCULAR HEMOGLOBIN 27.7 pg (27.0-31.0); MEAN CORPUSCULAR HGB CONC 31.6 g/dL (33.0-37.0); MEAN PLATELET VOLUME 9.8 fl (7.2-11.7); MONO # 0.5 K/uL (0.0-0.8); MONO % 6.2 % (0.0-10.0); NEUT # 7.1 K/uL (1.8-7.0); NEUT % 90.4 % (50.0-75.0); PLATELET COUNT 185 K/uL (130-400); RBC 4.12 Mil/uL (4.40-5.90); WHITE BLOOD COUNT 7.8 K/uL (4.8-10.8)
[2018-01-13 18:05] VITALS: BP 150/94; PULSE 84; TEMP 98.5
[2018-01-13 19:30] LABS: BANDS 2 % (0-2); LYMPHOCYTE 8 % (20-50); MONOCYTE 5 % (0-10); NEUTROPHIL 84 % (42-75); REACTIVE LYMPHOCYTES 1 % (0-0); TOTAL CELLS COUNTED 100
[2018-01-13 19:31] LABS: PLATELET ESTIMATE NORMAL (NORMAL)
[2018-01-19 13:29] VITALS: O2SAT 97
== END 2018-01-13 18:05 | disposition home or self-care (01) ==
LOC: H.ER 14:23
DX: M79.605 Pain in left leg (principal); M79.604 Pain in right leg; E11.9 Type 2 diabetes mellitus without complications; Z86.59 Personal history of other mental and behavioral disorders; I11.0 Hypertensive heart disease with heart failure; I25.10 Atherosclerotic heart disease of native coronary artery without angina pectoris; J44.9 Chronic obstructive pulmonary disease, unspecified; Z79.01 Long term (current) use of anticoagulants; Z79.84 Long term (current) use of oral hypoglycemic drugs; Z82.49 Family history of ischemic heart disease and other diseases of the circulatory system; Z86.718 Personal history of other venous thrombosis and embolism; Z86.73 Personal history of transient ischemic attack (TIA), and cerebral infarction without residual deficits; Z86.711 Personal history of pulmonary embolism; Z88.0 Allergy status to penicillin; Z79.82 Long term (current) use of aspirin; E78.00 Pure hypercholesterolemia, unspecified

== ENCOUNTER 2018-01-15 02:53 | Emergency (ER) | payer MEDICAID ==
[2018-01-15 02:53] VITALS: PULSE 81; BMI 36.2
[2018-01-15 02:58] VITALS: RESP 18
[2018-01-15] MEDS ORDERED: Albuterol-Ipratrop 3 mg / 0.5 (3 ml) UD INH STA ×2 (03:50)
[2018-01-15] MEDS ORDERED: Albuterol-Ipratrop 3 mg / 0.5 (3 ml) UD ONE (04:12)
--- NOTE | 2018-01-15 04:38 | ED PDOC ---
HPI: SOB/CHF/COPD Time Seen by Provider: 01/15/18 03:07 Chief Complaint (Nursing): Respiratory Distress Chief Complaint (Provider): Asthma Exacerbation History Per: Patient, EMS History/Exam Limitations: no limitations Onset/Duration Of Symptoms: Mins Additional Complaint(s): 67 year old male, with a past medical history of COPD, presents to the ED via EMS for asthma exacerbation. Patient states he used the pump at home without significant relief. Patient is well known to the ER for similar visits. PMD: Maricruz Yung Past Medical History Reviewed: Historical Data, Nursing Documentation, Vital Signs Vital Signs: Last Vital Signs Temp 98.1 F 01/15/18 02:55 Pulse 99 H 01/15/18 02:55 Resp 18 01/15/18 02:55 BP 163/108 H 01/15/18 02:55 Pulse Ox 95 01/15/18 02:55 - Medical History PMH: Anxiety, Asthma, Atrial Fibrillation, Bronchitis, CAD, Cardia Arrhythmia, CHF, COPD, CVA, Depression, Diabetes, Deep Vein Thrombosis, Gastritis, HTN, Hypercholesterolemia, Hyperlipidemia, Hyperthyroidism, Peripheral Edema, Pneumonia, Pulmonary Embolism Denies: HIV, Chronic Kidney Disease - Surgical History Surgical History: No Surg Hx - Family History Family History: States: [place], CAD, Diabetes, Hypertension (mother) - Immunization History Hx Tetanus Toxoid Vaccination: No Hx Influenza Vaccination: No Hx Pneumococcal Vaccination: No - Home Medications Home Medications: Ambulatory Orders Medication Instructions Recorded Digoxin 0.125 mg PO DAILY 30 Days #30 tab 08/26/17 Colchicine 0.6 mg PO DAILY 09/13/17 Losartan [Cozaar] 100 mg PO DAILY 09/13/17 diltiaZEM CD [Cardizem CD] 240 mg PO DAILY 11/09/17 Albuterol Sulfate [Ventolin Hfa] 2 puff IH Q6 PRN 01/03/18 GlipiZIDE [Glucotrol] 5 mg PO DAILY 01/03/18 Ipratropium [Atrovent HFA] 1 puff IH Q6 PRN 01/03/18 Apixaban [Eliquis] 5 mg PO Q12 tab 01/04/18 Aspirin [Aspirin Chewable] 81 mg PO DAILY chew 01/04/18 Atorvastatin [Lipitor] 40 mg PO DAILY tab 01/04/18 Gabapentin [Neurontin] 300 mg PO Q12 cap 01/04/18 metFORMIN [glucOPHAGE] 500 mg PO BID tab 01/04/18 Methylprednisolone [Medrol Dose 4 mg PO ASDIR 01/10/18 Pack (21 tabs)] Cephalexin [cephalexin] 500 mg PO BID 10 Days #20 cap 01/11/18 - Allergies Allergies/Adverse Reactions: Allergies Allergy/AdvReac Type Severity Reaction Status Date / Time Penicillins Allergy RASH Verified 01/15/18 02:54 Review of Systems ROS Statement: Except As Marked, All Systems Reviewed And Found Negative Respiratory: Positive for: Other (Asthma exacerbation) Physical Exam - Reviewed Nursing Documentation Reviewed: Yes Vital Signs Reviewed: Yes - Physical Exam Appears: Positive for: No Acute Distress (comfortable and speaking full sentences). Negative for: Uncomfortable Head Exam: Positive for: ATRAUMATIC, NORMOCEPHALIC Skin: Positive for: Normal Color, Warm, Dry Eye Exam: Positive for: Normal appearance Neck: Positive for: Normal, Painless ROM Cardiovascular/Chest: Positive for: Regular Rate, Rhythm Respiratory: Positive for: Wheezing (bilaterally) Extremity: Positive for: Normal ROM Neurologic/Psych: Positive for: Alert, Oriented. Negative for: Motor/Sensory Deficits - ECG O2 Sat by Pulse Oximetry: 95 (RA) Pulse Ox Interpretation: Normal Medical Decision Making Medical Decision Making: Initial Impression: 67 year old male with asthma exacerbation Initial Plan: --Albuterol 3mL INH --Peak flow Will give nebulizer treatments and will reevaluate after. 645AM --Patient signficantly improved --Wheezing is improved --Vitals stable Scribe Attestation: Documented by Tereso Abernathy acting as a scribe for Niraj Hernandez MD. Provider Scribe Attestation: All medical record entries made by the Scribe were at my direction and personally dictated by me. I have reviewed the chart and agree that the record accurately reflects my personal performance of the history, physical exam, medical decision making, and the department course for this patient. I have also personally directed, reviewed, and agree with the discharge instructions and disposition. Disposition - Clinical Impression Clinical Impression: Asthma exacerbation - Patient ED Disposition Is Patient to be Admitted: No - Disposition Referrals: [facility] [Outside] Disposition: Routine/Home Disposition Time: 06:48 Condition: IMPROVED Instructions: Asthma, Adult (DC) Forms: [email or web address] (New Zealander)
[2018-01-15 07:48] VITALS: BP 172/104; PULSE 87; TEMP 98.2; O2SAT 96
== END 2018-01-15 07:20 | disposition home or self-care (01) ==
LOC: H.ER 02:53
DX: J45.901 Unspecified asthma with (acute) exacerbation (principal)

== ENCOUNTER 2018-01-15 20:04 | Emergency (ER) | payer MEDICAID ==
[2018-01-15 20:05] VITALS: PULSE 81; BMI 36.2
[2018-01-15] MEDS ORDERED: Albuterol-Ipratrop 3 mg / 0.5 (3 ml) UD INH STA ×3 (20:16→21:12)
[2018-01-15] MEDS ORDERED: Albuterol-Ipratrop 3 mg / 0.5 (3 ml) UD ONE ×2 (20:51→21:44)
--- NOTE | 2018-01-15 21:18 | ED PDOC ---
HPI: Asthma Chief Complaint (Provider): Asthma History Per: Patient History/Exam Limitations: no limitations Onset/Duration Of Symptoms: Other (chronic) Current Symptoms Are (Timing): Still Present Additional Complaint(s): 67 year old male who is well known to the ED and this provider presents for evaluation of wheezing in setting of known asthma. Patient was recently discharged this morning from the ED for similar complaints. Denies chest pain. PMD: Maricruz Solis <Sarah Espinosa - Last Filed: 01/15/18 23:23> <Niraj Hernandez - Last Filed: 01/16/18 06:47> Time Seen by Provider: 01/15/18 20:17 Chief Complaint (Nursing): Cough, Cold, Congestion Past Medical History Reviewed: Historical Data, Nursing Documentation, Vital Signs Vital Signs: Last Vital Signs Temp 98.2 F 01/15/18 20:09 Pulse 116 H 01/15/18 20:09 Resp 20 01/15/18 20:09 BP 156/104 H 01/15/18 20:09 Pulse Ox 98 01/15/18 20:09 - Medical History PMH: Anxiety, Asthma, Atrial Fibrillation, Bronchitis, CAD, Cardia Arrhythmia, CHF, COPD, CVA, Depression, Diabetes, Deep Vein Thrombosis, Gastritis, HTN, Hypercholesterolemia, Hyperlipidemia, Hyperthyroidism, Peripheral Edema, Pneumonia, Pulmonary Embolism Denies: HIV, Chronic Kidney Disease - Surgical History Surgical History: Hernia Repair Other surgeries: bunionectomy - Family History Family History: States: [place], CAD, Diabetes, Hypertension (mother) - Social History Current smoker - smoking cessation education provided: Yes (some days) Alcohol: Social Drugs: Cocaine - Immunization History Hx Tetanus Toxoid Vaccination: No Hx Influenza Vaccination: No Hx Pneumococcal Vaccination: No <Sarah Espinosa - Last Filed: 01/15/18 23:23> Vital Signs: Last Vital Signs Temp 98.1 F 01/16/18 02:50 Pulse 76 01/16/18 02:50 Resp 19 01/16/18 02:50 BP 151/83 H 01/16/18 02:50 Pulse Ox 96 01/16/18 02:50 <Niraj Hernandez - Last Filed: 01/16/18 06:47> - Home Medications Home Medications: Ambulatory Orders Medication Instructions Recorded RX: Digoxin 0.125 mg PO DAILY 30 Days #30 tab 08/26/17 RX: Colchicine 0.6 mg PO DAILY 09/13/17 RX: Losartan [Cozaar] 100 mg PO DAILY 09/13/17 RX: diltiaZEM CD [Cardizem CD] 240 mg PO DAILY 11/09/17 RX: Albuterol Sulfate [Ventolin 2 puff IH Q6 PRN 01/03/18 Hfa] RX: GlipiZIDE [Glucotrol] 5 mg PO DAILY 01/03/18 RX: Ipratropium [Atrovent HFA] 1 puff IH Q6 PRN 01/03/18 RX: Apixaban [Eliquis] 5 mg PO Q12 tab 01/04/18 RX: Aspirin [Aspirin Chewable] 81 mg PO DAILY chew 01/04/18 RX: Atorvastatin [Lipitor] 40 mg PO DAILY tab 01/04/18 RX: Gabapentin [Neurontin] 300 mg PO Q12 cap 01/04/18 RX: metFORMIN [glucOPHAGE] 500 mg PO BID tab 01/04/18 Methylprednisolone [Medrol Dose 4 mg PO ASDIR 01/10/18 Pack (21 tabs)] Cephalexin [cephalexin] 500 mg PO BID 10 Days #20 cap 01/11/18 - Allergies Allergies/Adverse Reactions: Allergies Allergy/AdvReac Type Severity Reaction Status Date / Time Penicillins Allergy RASH Verified 01/15/18 02:54 Review of Systems ROS Statement: Except As Marked, All Systems Reviewed And Found Negative Cardiovascular: Negative for: Chest Pain Respiratory: Positive for: Wheezing <Sarah Espinosa - Last Filed: 01/15/18 23:23> Physical Exam - Reviewed Nursing Documentation Reviewed: Yes Vital Signs Reviewed: Yes - Physical Exam Appears: Positive for: In Acute Distress (mild respiratory) Cardiovascular/Chest: Positive for: Regular Rate, Rhythm Respiratory: Positive for: Wheezing (diffuse expiratory) <Sarah Espinosa - Last Filed: 01/15/18 23:23> - ECG O2 Sat by Pulse Oximetry: 98 (RA) Pulse Ox Interpretation: Normal <Sarah Espinosa - Last Filed: 01/15/18 23:23> Medical Decision Making Medical Decision Making: Time: 2011 Initial Impression: asthma Initial Plan: --Duoneb tx 3ml INH x3 --Peak flow pre/post x3 After third Duoneb tx, patients wheezing significantly improved. Discussed with Dr. Hernandez. 1025 - Pt sleeping comfortable, NAD Scribe Attestation: Documented by Angela Batres, acting as a scribe for Sarah Espinosa PA-C Provider Scribe Attestation: All medical record entries made by the Scribe were at my direction and personally dictated by me. I have reviewed the chart and agree that the record accurately reflects my personal performance of the history, physical exam, medical decision making, and the department course for this patient. I have also personally directed, reviewed, and agree with the discharge instructions and disposition. <Sarah Espinosa - Last Filed: 01/15/18 23:23> Medical Decision Makin Patient no longer wheezing Vitals stable Suitable for outpatient followup <Niraj Hernandez - Filed: 01/16/18 06:47> Disposition - Patient ED Disposition Is Patient to be Admitted: No Counseled Patient/Family Regarding: Diagnosis, Need For Followup - Disposition Disposition: Routine/Home Disposition Time: 22:26 <Sarah Espinosa - James Filed: 01/15/18 23:23> - Patient ED Disposition Is Patient to be Admitted: No - Disposition Disposition: Routine/Home Disposition Time: 03:00 <Niraj Hernandez - Last Filed: 01/16/18 06:47> - Clinical Impression Clinical Impression: Asthma - Disposition Referrals: Maricruz Solis MD [Family Provider] - Condition: GOOD Instructions: Asthma in Adults Forms: [facility] (Chinese) Print Language: INDONESIAN
[2018-01-16 02:52] VITALS: BP 151/83; PULSE 76; RESP 19; TEMP 98.1; O2SAT 96
== END 2018-01-16 02:55 | disposition home or self-care (01) ==
LOC: H.ER 20:04
DX: J45.909 Unspecified asthma, uncomplicated (principal)

== ENCOUNTER 2018-01-19 03:10 | Emergency (ER) | payer MEDICAID ==
[2018-01-19 03:10] VITALS: PULSE 81; BMI 36.2
[2018-01-19 03:26] VITALS: TEMP 97.4
[2018-01-19] MEDS ORDERED: Albuterol-Ipratrop 3 mg / 0.5 (3 ml) UD INH STA (03:28)
[2018-01-19] MEDS ORDERED: Magnesium Sulfate 2 gm/50 ml 2 GM/50 ML BAG IV STA (03:37)
[2018-01-19] MEDS ORDERED: Magnesium Sulfate 2 gm/50 ml 2 GM/50 ML BAG ONE (03:40)
--- NOTE | 2018-01-19 03:42 | ED PDOC ---
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 He states he used inhaler with no relief. Patient denies fever. PMD: non provided Past Medical History Reviewed: Historical Data, Nursing Documentation, Vital Signs Vital Signs: Last Vital Signs Temp 97.4 F L 01/19/18 03:20 Pulse 74 01/19/18 03:20 Resp 21 01/19/18 03:20 BP 197/88 H 01/19/18 03:20 Pulse Ox 96 01/19/18 03:20 - Medical History PMH: Anxiety, Asthma, Atrial Fibrillation, Bronchitis, CAD, Cardia Arrhythmia, CHF, COPD, CVA, Depression, Diabetes, Deep Vein Thrombosis, Gastritis, HTN, Hypercholesterolemia, Hyperlipidemia, Hyperthyroidism, Peripheral Edema, Pneumonia, Pulmonary Embolism Denies: HIV, Chronic Kidney Disease - Surgical History Surgical History: Hernia Repair - Family History Family History: States: [place], CAD, Diabetes, Hypertension (mother) - Social History Current smoker - smoking cessation education provided: No Alcohol: None Drugs: Cocaine - Immunization History Hx Tetanus Toxoid Vaccination: No Hx Influenza Vaccination: No Hx Pneumococcal Vaccination: No - Home Medications Home Medications: Ambulatory Orders Medication Instructions Recorded RX: Digoxin 0.125 mg PO DAILY 30 Days #30 tab 08/26/17 RX: Colchicine 0.6 mg PO DAILY 09/13/17 RX: Losartan [Cozaar] 100 mg PO DAILY 09/13/17 RX: diltiaZEM CD [Cardizem CD] 240 mg PO DAILY 11/09/17 RX: Albuterol Sulfate [Ventolin 2 puff IH Q6 PRN 01/03/18 Hfa] RX: GlipiZIDE [Glucotrol] 5 mg PO DAILY 01/03/18 RX: Ipratropium [Atrovent HFA] 1 puff IH Q6 PRN 01/03/18 RX: Apixaban [Eliquis] 5 mg PO Q12 tab 01/04/18 RX: Aspirin [Aspirin Chewable] 81 mg PO DAILY chew 01/04/18 RX: Atorvastatin [Lipitor] 40 mg PO DAILY tab 01/04/18 RX: Gabapentin [Neurontin] 300 mg PO Q12 cap 01/04/18 RX: metFORMIN [glucOPHAGE] 500 mg PO BID tab 01/04/18 Methylprednisolone [Medrol Dose 4 mg PO ASDIR 01/10/18 Pack (21 tabs)] Cephalexin [cephalexin] 500 mg PO BID 10 Days #20 cap 01/11/18 Methylprednisolone [Medrol Dosepak] 4 mg PO ASDIR #1 pkg 01/19/18 - Allergies Allergies/Adverse Reactions: Allergies Allergy/AdvReac Type Severity Reaction Status Date / Time Penicillins Allergy RASH Verified 01/15/18 02:54 Review of Systems ROS Statement: Except As Marked, All Systems Reviewed And Found Negative Constitutional: Negative for: Fever Cardiovascular: Positive for: Chest Pain (tightness) Respiratory: Positive for: Cough (Dry), Shortness of Breath Physical Exam - Reviewed Nursing Documentation Reviewed: Yes Vital Signs Reviewed: Yes - Physical Exam Appears: Positive for: Non-toxic, No Acute Distress Head Exam: Positive for: ATRAUMATIC, NORMOCEPHALIC Skin: Positive for: Normal Color, Warm, Dry Eye Exam: Positive for: Normal appearance, EOMI, PERRL ENT: Positive for: Normal ENT Inspection Neck: Positive for: Normal, Painless ROM, Supple Cardiovascular/Chest: Positive for: Regular Rate, Rhythm. Negative for: Murmur Respiratory: Positive for: Respiratory Distress (moderate), Other (Decreased air entry on auscultating bilaterally) Gastrointestinal/Abdominal: Positive for: Normal Exam, Soft. Negative for: Tenderness Extremity: Positive for: Normal ROM. Negative for: Pedal Edema, Deformity Neurologic/Psych: Positive for: Alert, Oriented (x3) - Laboratory Results Result Diagrams: 01/19/18 05:00 01/19/18 04:02 - ECG O2 Sat by Pulse Oximetry: 96 (RA) Pulse Ox Interpretation: Normal - Critical Care Total Time (In Min): 30 Medical Decision Making Medical Decision Making: Time: 327 Initial Impression: 67 y/o homeless male presents with COPD exacerbation Initial Plan: --EKG --BTN --CMP --Troponin --EKG --CBC --Albuterol 9 ml INH --SOLU-Medrol 125 mg IVP --Magnesium Sulfate 2 gm in 50 ml IV --Peak flow pre/post treatment 0535 Labs reviewed and show no significant abnormality. Patient reports marked improvement in symptoms. Patient is stable for discharge. Scribe Attestation: Documented by Ana Garcia, acting as a scribe for Huseyin Peters MD. Provider Scribe Attestation: All medical record entries made by the Scribe were at my direction and personally dictated by me. I have reviewed the chart and agree that the record accurately reflects my personal performance of the history, physical exam, medical decision making, and the department course for this patient. I have also personally directed, reviewed, and agree with the discharge instructions and disposition. Disposition - Clinical Impression Clinical Impression: COPD exacerbation - Patient ED Disposition Is Patient to be Admitted: No - Disposition Disposition: Routine/Home Disposition Time: 05:35 Condition: IMPROVED Prescriptions: Methylprednisolone [Medrol Dosepak] 4 mg PO ASDIR #1 pkg Instructions: Exacerbation of COPD Forms: [employer] (Serbian)
[2018-01-19 05:03] LABS: BASO % 0.4 % (0.0-2.0); EOS # 0.1 K/uL (0.0-0.7); EOS % 0.8 % (0.0-4.0); HEMOGLOBIN 12.7 g/dL (12.0-18.0); LYMPH # 2.1 K/uL (1.0-4.3); LYMPH % 22.8 % (20.0-40.0); MEAN CELL VOLUME 86.8 fl (80.0-94.0); MEAN CORPUSCULAR HEMOGLOBIN 27.4 pg (27.0-31.0); MEAN CORPUSCULAR HGB CONC 31.6 g/dL (33.0-37.0); MEAN PLATELET VOLUME 9.8 fl (7.2-11.7); MONO % 10.7 % (0.0-10.0); NEUT # 5.9 K/uL (1.8-7.0); NEUT % 65.3 % (50.0-75.0); RBC 4.65 Mil/uL (4.40-5.90); RED CELL DISTRIBUTION WIDTH 18.2 % (11.5-14.5); WHITE BLOOD COUNT 9.1 K/uL (4.8-10.8)
[2018-01-19 05:19] LABS: B-TYPE NATRIURETIC PEPTIDE 259 pg/ml (0-900)
[2018-01-19 05:22] LABS: ALB/GLOB RATIO 1.3 (1.0-2.1); ALBUMIN 4.1 g/dL (3.5-5.0); ALT/SGPT 34 U/L (21-72); AST/SGOT 32 U/L (17-59); BLOOD UREA NITROGEN 21 mg/dl (9-20); CALCIUM 11.3 mg/dL (8.4-10.2); GFR NON-AFRICAN AMERICAN > 60
--- NOTE | 2018-01-19 06:02 | CARD ---
APPROVED REPORT Date of service: 01/19/2018 EKG Measurement Heart [id number] <Conclusion> Atrial fibrillation Nonspecific T wave abnormality Abnormal ECG
[2018-01-19 07:01] VITALS: BP 160/82; PULSE 82; RESP 19; O2SAT 95
== END 2018-01-19 06:55 | disposition home or self-care (01) ==
LOC: H.ER 03:10
DX: J44.1 Chronic obstructive pulmonary disease with (acute) exacerbation (principal); F14.10 Cocaine abuse, uncomplicated; E05.90 Thyrotoxicosis, unspecified without thyrotoxic crisis or storm; E11.9 Type 2 diabetes mellitus without complications; E78.00 Pure hypercholesterolemia, unspecified; I11.0 Hypertensive heart disease with heart failure; Z59.0 Homelessness; Z79.01 Long term (current) use of anticoagulants; Z79.84 Long term (current) use of oral hypoglycemic drugs; Z86.711 Personal history of pulmonary embolism; Z86.718 Personal history of other venous thrombosis and embolism; Z86.73 Personal history of transient ischemic attack (TIA), and cerebral infarction without residual deficits; Z88.0 Allergy status to penicillin
CPT/HCPCS: 80053; 83880; 84484; 85025; 93005; 94640; 96374; 96375; 99285; J2930

== ENCOUNTER 2018-01-20 04:09 | Emergency (ER) | payer MEDICAID ==
[2018-01-20 04:09] VITALS: PULSE 81; BMI 36.2
[2018-01-20] MEDS ORDERED: Albuterol-Ipratrop 3 mg / 0.5 (3 ml) UD INH STA (05:03)
[2018-01-20] MEDS ORDERED: Albuterol-Ipratrop 3 mg / 0.5 (3 ml) UD ONE (05:19)
--- NOTE | 2018-01-20 06:06 | ED PDOC ---
HPI: SOB/CHF/COPD Time Seen by Provider: 01/20/18 04:31 Chief Complaint (Nursing): Shortness Of Breath Chief Complaint (Provider): Shortness Of Breath History Per: Patient History/Exam Limitations: no limitations Additional Complaint(s): 67 y/o male with history of AFib, CHF, COPD, presents to the ED complaining of shortness of breath. Patient is homeless and is well known to the provider to have bed seeking behavior. Patient states he developed shortness of breath but on arrival to ED is in no obvious distress. Patient was seen for the same in this ED less than 24 hours ago. Past Medical History Reviewed: Historical Data, Nursing Documentation, Vital Signs Vital Signs: Last Vital Signs Temp 98.1 F 01/20/18 04:26 Pulse 83 01/20/18 04:26 Resp 19 01/20/18 05:22 BP 178/85 H 01/20/18 04:26 Pulse Ox 98 01/20/18 04:26 - Medical History PMH: Anxiety, Asthma, Atrial Fibrillation, Bronchitis, CAD, Cardia Arrhythmia, CHF, COPD, CVA, Depression, Diabetes, Deep Vein Thrombosis, Gastritis, HTN, Hypercholesterolemia, Hyperlipidemia, Hyperthyroidism, Peripheral Edema, Pneumonia, Pulmonary Embolism Denies: HIV, Chronic Kidney Disease - Surgical History Surgical History: Hernia Repair - Family History Family History: States: [place], CAD, Diabetes, Hypertension (mother) - Living Arrangements Living Arrangements: Other (homeless) - Social History Current smoker - smoking cessation education provided: No Alcohol: None Drugs: Denies - Immunization History Hx Tetanus Toxoid Vaccination: No Hx Influenza Vaccination: No Hx Pneumococcal Vaccination: No - Home Medications Home Medications: Ambulatory Orders Medication Instructions Recorded Digoxin 0.125 mg PO DAILY 30 Days #30 tab 08/26/17 Colchicine 0.6 mg PO DAILY 09/13/17 Losartan [Cozaar] 100 mg PO DAILY 09/13/17 diltiaZEM CD [Cardizem CD] 240 mg PO DAILY 11/09/17 Albuterol Sulfate [Ventolin Hfa] 2 puff IH Q6 PRN 01/03/18 GlipiZIDE [Glucotrol] 5 mg PO DAILY 01/03/18 Ipratropium [Atrovent HFA] 1 puff IH Q6 PRN 01/03/18 Apixaban [Eliquis] 5 mg PO Q12 tab 01/04/18 Aspirin [Aspirin Chewable] 81 mg PO DAILY chew 01/04/18 Atorvastatin [Lipitor] 40 mg PO DAILY tab 01/04/18 Gabapentin [Neurontin] 300 mg PO Q12 cap 01/04/18 metFORMIN [glucOPHAGE] 500 mg PO BID tab 01/04/18 Methylprednisolone [Medrol Dose 4 mg PO ASDIR 01/10/18 Pack (21 tabs)] Cephalexin [cephalexin] 500 mg PO BID 10 Days #20 cap 01/11/18 Methylprednisolone [Medrol Dosepak] 4 mg PO ASDIR #1 pkg 01/19/18 - Allergies Allergies/Adverse Reactions: Allergies Allergy/AdvReac Type Severity Reaction Status Date / Time Penicillins Allergy RASH Verified 01/15/18 02:54 Review of Systems ROS Statement: Except As Marked, All Systems Reviewed And Found Negative Respiratory: Positive for: Shortness of Breath Physical Exam - Reviewed Nursing Documentation Reviewed: Yes Vital Signs Reviewed: Yes - Physical Exam Appears: Positive for: Well, Non-toxic, No Acute Distress Head Exam: Positive for: ATRAUMATIC, NORMOCEPHALIC Skin: Positive for: Normal Color, Warm, Dry Eye Exam: Positive for: EOMI, Normal appearance, PERRL Cardiovascular/Chest: Positive for: Regular Rate, Rhythm. Negative for: Murmur Respiratory: Positive for: Wheezing (mild bilateral expiratory wheezing). Negative for: Respiratory Distress (mild) Gastrointestinal/Abdominal: Positive for: Normal Exam, Soft. Negative for: Tenderness Extremity: Positive for: Normal ROM. Negative for: Pedal Edema, Deformity Neurologic/Psych: Positive for: Alert, Oriented. Negative for: Motor/Sensory Deficits - ECG O2 Sat by Pulse Oximetry: 98 (RA) Pulse Ox Interpretation: Normal Medical Decision Making Medical Decision Making: Time: 04:28 Initial Impression: 67 y/o male with COPD stable for discharge. Initial Plan: * EKG * Duoneb 05:31 Patient is feeling better at this time. Stable for discharge. Diagnosis is COPD exacerbation. Scribe Attestation: Documented by Luigi Miranda acting as a scribe for Huseyin Peters MD. Provider Scribe Attestation: All medical record entries made by the Scribe were at my direction and personally dictated by me. I have reviewed the chart and agree that the record accurately reflects my personal performance of the history, physical exam, medical decision making, and the department course for this patient. I have also personally directed, reviewed, and agree with the discharge instructions and disposition. Disposition - Clinical Impression Clinical Impression: COPD exacerbation - Patient ED Disposition Is Patient to be Admitted: No - Disposition Disposition: Routine/Home Disposition Time: 05:31 Condition: STABLE Additional Instructions: ROMARIO MOORE, thank you for letting us take care of you today. Your provider was Huseyin Peters MD and you were treated for SOB. The emergency medical care you received today was directed at your acute symptoms. If you were prescribed any medication, please fill it and take as directed. It may take several days for your symptoms to resolve. Return to the Emergency Department if your symptoms worsen, do not improve, or if you have any other problems. Please contact your doctor or call one of the physicians/clinics you have been referred to that are listed on the Patient Visit Information form that is included in your discharge packet. Bring any paperwork you were given at discharge with you along with any medications you are taking to your follow up visit. Our treatment cannot replace ongoing medical care by a primary care provider outside of the emergency department. Thank you for allowing the [facility] team to be part of your care today. If you had an X-Ray or CT scan: A Radiologist will review the ED reading if any change in treatment is needed we will contact you. If you had a blood, urine, or wound culture: It will take several days for the results, if any change in treatment is needed we will contact you. If you had an STI test: It will take 48 hours for the results. Please call after 1 week if you have not heard back. Instructions: Chronic Obstructive Pulmonary Disease (COPD), Including Emphysema Forms: [employer] (Nepali)
[2018-01-20 06:24] VITALS: BP 144/89; PULSE 91; RESP 16; TEMP 98.3; O2SAT 100
--- NOTE | 2018-01-20 20:09 | CARD ---
APPROVED REPORT Date of service: 01/20/2018 EKG Measurement Heart [id number] <Conclusion> Atrial fibrillation Abnormal ECG
== END 2018-01-20 06:23 | disposition home or self-care (01) ==
LOC: H.ER 04:09
DX: J44.1 Chronic obstructive pulmonary disease with (acute) exacerbation (principal); E11.9 Type 2 diabetes mellitus without complications; I11.0 Hypertensive heart disease with heart failure; Z79.84 Long term (current) use of oral hypoglycemic drugs; Z79.01 Long term (current) use of anticoagulants; Z86.711 Personal history of pulmonary embolism; Z86.718 Personal history of other venous thrombosis and embolism; Z86.73 Personal history of transient ischemic attack (TIA), and cerebral infarction without residual deficits

== ENCOUNTER 2018-01-26 23:45 | Emergency (ER) | payer MEDICAID ==
[2018-01-26 23:46] VITALS: PULSE 81
[2018-01-27 00:04] VITALS: BMI 37.1
[2018-01-27 00:06] VITALS: TEMP 97.6
[2018-01-27] MEDS ORDERED: Albuterol-Ipratrop 3 mg / 0.5 (3 ml) UD INH STA (00:07)
[2018-01-27] MEDS ORDERED: Albuterol-Ipratrop 3 mg / 0.5 (3 ml) UD ONE ×2 (00:54→00:57)
--- NOTE | 2018-01-27 01:16 | ED PDOC ---
HPI: SOB/CHF/COPD Time Seen by Provider: 01/26/18 23:57 Chief Complaint (Nursing): Shortness Of Breath Chief Complaint (Provider): Shortness Of Breath History Per: Patient History/Exam Limitations: no limitations Additional Complaint(s): 67 years old male with history of AFib, CHF, COPD, presents to the ED complaining of shortness of breath. Patient is homeless and is well known to the provider to have bed seeking behavior. Patient states he developed shortness of breath but on arrival to ED is in no obvious distress. PMD: non provided Past Medical History Reviewed: Historical Data, Nursing Documentation, Vital Signs Vital Signs: Last Vital Signs Temp 97.6 F 01/27/18 00:03 Pulse 78 01/27/18 00:03 Resp 18 01/27/18 00:03 BP 143/71 01/27/18 00:03 Pulse Ox 100 01/27/18 00:03 - Medical History PMH: Anxiety, Asthma, Atrial Fibrillation, Bronchitis, CAD, Cardia Arrhythmia, CHF, COPD, CVA, Depression, Diabetes, Deep Vein Thrombosis, Gastritis, HTN, Hypercholesterolemia, Hyperlipidemia, Hyperthyroidism, Peripheral Edema, Pneumonia, Pulmonary Embolism Denies: HIV, Chronic Kidney Disease - Surgical History Surgical History: Hernia Repair - Family History Family History: States: [place], CAD, Diabetes, Hypertension (mother) - Social History Current smoker - smoking cessation education provided: No Alcohol: None Drugs: Denies - Immunization History Hx Tetanus Toxoid Vaccination: No Hx Influenza Vaccination: No Hx Pneumococcal Vaccination: No - Home Medications Home Medications: Ambulatory Orders Medication Instructions Recorded Digoxin 0.125 mg PO DAILY 30 Days #30 tab 08/26/17 Colchicine 0.6 mg PO DAILY 09/13/17 Losartan [Cozaar] 100 mg PO DAILY 09/13/17 [id number] CD [Cardizem CD] 240 mg PO DAILY 11/09/17 Albuterol Sulfate [Ventolin Hfa] 2 puff IH Q6 PRN 01/03/18 GlipiZIDE [Glucotrol] 5 mg PO DAILY 01/03/18 Ipratropium [Atrovent HFA] 1 puff IH Q6 PRN 01/03/18 Apixaban [Eliquis] 5 mg PO Q12 tab 01/04/18 Aspirin [Aspirin Chewable] 81 mg PO DAILY chew 01/04/18 Atorvastatin [Lipitor] 40 mg PO DAILY tab 01/04/18 Gabapentin [Neurontin] 300 mg PO Q12 cap 01/04/18 metFORMIN [glucOPHAGE] 500 mg PO BID tab 01/04/18 Methylprednisolone [Medrol Dose 4 mg PO ASDIR 01/10/18 Pack (21 tabs)] Methylprednisolone [Medrol Dosepak] 4 mg PO ASDIR #1 pkg 01/19/18 - Allergies Allergies/Adverse Reactions: Allergies Allergy/AdvReac Type Severity Reaction Status Date / Time Penicillins Allergy RASH Verified 01/27/18 00:03 Review of Systems ROS Statement: Except As Marked, All Systems Reviewed And Found Negative Respiratory: Positive for: Shortness of Breath Physical Exam - Reviewed Nursing Documentation Reviewed: Yes Vital Signs Reviewed: Yes - Physical Exam Appears: Positive for: Non-toxic, No Acute Distress Head Exam: Positive for: ATRAUMATIC, NORMOCEPHALIC Skin: Positive for: Normal Color, Warm, Dry Eye Exam: Positive for: Normal appearance, EOMI, PERRL Cardiovascular/Chest: Positive for: Regular Rate, Rhythm. Negative for: Murmur Respiratory: Positive for: Wheezing (mild bilateral expiratory). Negative for: Respiratory Distress Gastrointestinal/Abdominal: Positive for: Normal Exam, Soft. Negative for: Tenderness Back: Positive for: Normal Inspection. Negative for: L CVA Tenderness, R CVA Tenderness Extremity: Positive for: Normal ROM. Negative for: Pedal Edema, Deformity Neurologic/Psych: Positive for: Alert, Oriented (x3) - ECG O2 Sat by Pulse Oximetry: 100 (RA) Pulse Ox Interpretation: Normal Medical Decision Making Medical Decision Making: Time: 6 Initial Impression: 67 y/o male presents with shortness of breath Initial Plan: --Duoneb 0541 Upon reevaluation, patient's lungs are clear to auscultation bilaterally. Patient is in no distress. Patient is stable for discharge, diagnosed with COPD. Scribe Attestation: Documented by Ana Garcia, acting as a scribe for Huseyin Peters MD. Provider Scribe Attestation: All medical record entries made by the Belkisibkerrie were at my direction and personally dictated by me. I have reviewed the chart and agree that the record accurately reflects my personal performance of the history, physical exam, medical decision making, and the department course for this patient. I have also personally directed, reviewed, and agree with the discharge instructions and disposition. Disposition - Clinical Impression Clinical Impression: COPD (chronic obstructive pulmonary disease) - Patient ED Disposition Is Patient to be Admitted: No - Disposition Disposition: Routine/Home Disposition Time: 05:41 Condition: STABLE Instructions: Chronic Obstructive Pulmonary Disease (COPD), Including Emphysema Print Language: BOLIVIAN
[2018-01-27 05:45] VITALS: O2SAT 100
[2018-01-27 05:47] VITALS: PULSE 80; RESP 17
[2018-01-27 05:52] VITALS: BP 140/88
--- NOTE | 2018-01-27 15:28 | CARD ---
APPROVED REPORT Date of service: 01/26/2018 EKG Measurement Heart [id number] <Conclusion> Atrial fibrillation Abnormal ECG
== END 2018-01-27 05:58 | disposition home or self-care (01) ==
LOC: H.ER 23:45
DX: J44.9 Chronic obstructive pulmonary disease, unspecified (principal); I50.9 Heart failure, unspecified; Z79.01 Long term (current) use of anticoagulants; Z79.84 Long term (current) use of oral hypoglycemic drugs; Z86.711 Personal history of pulmonary embolism; E11.9 Type 2 diabetes mellitus without complications; E05.90 Thyrotoxicosis, unspecified without thyrotoxic crisis or storm; E78.00 Pure hypercholesterolemia, unspecified; I11.0 Hypertensive heart disease with heart failure; I25.10 Atherosclerotic heart disease of native coronary artery without angina pectoris; Z79.82 Long term (current) use of aspirin; Z59.0 Homelessness; Z86.73 Personal history of transient ischemic attack (TIA), and cerebral infarction without residual deficits; Z88.0 Allergy status to penicillin

== ENCOUNTER 2018-01-28 07:12 | Emergency (ER) | payer MEDICAID ==
[2018-01-28 07:13] VITALS: PULSE 81; BMI 37.1
[2018-01-28 07:19] VITALS: RESP 18; TEMP 97.8
[2018-01-28] MEDS ORDERED: Albuterol-Ipratrop 3 mg / 0.5 (3 ml) UD ONE ×2 (07:29→11:40)
[2018-01-28] MEDS ORDERED: Albuterol-Ipratrop 3 mg / 0.5 (3 ml) UD INH STA ×2 (07:49→09:19)
--- NOTE | 2018-01-28 11:30 | ED PDOC ---
HPI: SOB/CHF/COPD Time Seen by Provider: 01/28/18 07:24 Chief Complaint (Nursing): Shortness Of Breath Chief Complaint (Provider): shortness of breath History Per: Patient History/Exam Limitations: no limitations Onset/Duration Of Symptoms: Days (1), Gradual Current Symptoms Are (Timing): Still Present Exacerbating Factor(s): Exertion Similar Symptoms Previously: ++ Recently: Seen In ED Additional Complaint(s): 67yo male c/o SOB ongoing 2-3days, out of medications at home. Consistent with p rior symptoms. No fever, syncope or hemoptysis. Known to ED from prior visits, known cocaine abuse. Past Medical History Reviewed: Historical Data, Nursing Documentation, Vital Signs Vital Signs: Last Vital Signs Temp 97.8 F 01/28/18 07:18 Pulse 93 H 01/28/18 07:18 Resp 18 01/28/18 07:18 BP 143/74 01/28/18 07:18 Pulse Ox 98 01/28/18 07:18 - Medical History PMH: Anxiety, Asthma, Atrial Fibrillation, Bronchitis, CAD, Cardia Arrhythmia, C HF, COPD, CVA, Depression, Diabetes, Deep Vein Thrombosis, Gastritis, HTN, Hypercholesterolemia, Hyperlipidemia, Hyperthyroidism, Peripheral Edema, Pneumonia, Pulmonary Embolism Denies: HIV, Chronic Kidney Disease - Surgical History Surgical History: Hernia Repair - Family History Family History: States: [place], CAD, Diabetes, Hypertension (mother) - Immunization History Hx Tetanus Toxoid Vaccination: No Hx Influenza Vaccination: No Hx Pneumococcal Vaccination: No - Home Medications Home Medications: Ambulatory Orders Medication Instructions Recorded Digoxin 0.125 mg PO DAILY 30 Days #30 tab 08/26/17 Colchicine 0.6 mg PO DAILY 09/13/17 Losartan [Cozaar] 100 mg PO DAILY 09/13/17 [id number] CD [Cardizem CD] 240 mg PO DAILY 11/09/17 Albuterol Sulfate [Ventolin Hfa] 2 puff IH Q6 PRN 01/03/18 GlipiZIDE [Glucotrol] 5 mg PO DAILY 01/03/18 Ipratropium [Atrovent HFA] 1 puff IH Q6 PRN 01/03/18 Apixaban [Eliquis] 5 mg PO Q12 tab 01/04/18 Aspirin [Aspirin Chewable] 81 mg PO DAILY chew 01/04/18 Atorvastatin [Lipitor] 40 mg PO DAILY tab 01/04/18 Gabapentin [Neurontin] 300 mg PO Q12 cap 01/04/18 metFORMIN [glucOPHAGE] 500 mg PO BID tab 01/04/18 Methylprednisolone [Medrol Dose 4 mg PO ASDIR 01/10/18 Pack (21 tabs)] Methylprednisolone [Medrol Dosepak] 4 mg PO ASDIR #1 pkg 01/19/18 Albuterol HFA [Ventolin HFA 90 1 - 2 puff IH Q4 PRN #1 inhaler 01/28/18 mcg/actuation (8 g)] Prednisone 50 mg PO DAILY #4 tab 01/28/18 - Allergies Allergies/Adverse Reactions: Allergies Allergy/AdvReac Type Severity Reaction Status Date / Time Penicillins Allergy RASH Verified 01/27/18 00:03 Review of Systems ROS Statement: Except As Marked, All Systems Reviewed And Found Negative Constitutional: Negative for: Fever Cardiovascular: Negative for: Chest Pain, Palpitations Respiratory: Positive for: Cough, Shortness of Breath, Pleuritic Pain, Wheezing. Negative for: Hemoptysis Gastrointestinal: Negative for: Abdominal Pain Genitourinary Male: Negative for: Dysuria Musculoskeletal: Negative for: Neck Pain, Back Pain Skin: Negative for: Rash Neurological: Negative for: Weakness, Numbness Psych: Negative for: Suicidal ideation Physical Exam - Reviewed Nursing Documentation Reviewed: Yes Vital Signs Reviewed: Yes - Physical Exam Appears: Positive for: Well, Non-toxic, No Acute Distress Head Exam: Positive for: ATRAUMATIC, NORMAL INSPECTION, NORMOCEPHALIC Skin: Positive for: Normal Color, Warm, DRY Eye Exam: Positive for: EOMI, Normal appearance, PERRL ENT: Positive for: Normal ENT Inspection Neck: Positive for: Normal, Painless ROM Cardiovascular/Chest: Positive for: Regular Rate, Rhythm Respiratory: Negative for: Respiratory Distress Gastrointestinal/Abdominal: Positive for: Normal Exam, Soft Back: Positive for: Normal Inspection Extremity: Positive for: Normal ROM Neurologic/Psych: Positive for: Alert, Oriented. Negative for: Motor/Sensory Deficits - ECG O2 Sat by Pulse Oximetry: 98 Medical Decision Making Medical Decision Making: bronchodilators and solumedrol ordered improved to baseline re-eval 1115a ambulating, wheeze improved without resp distress, wishes to be discharged Disposition - Clinical Impression Clinical Impression: COPD (chronic obstructive pulmonary disease) - Patient ED Disposition Is Patient to be Admitted: No Counseled Patient/Family Regarding: Studies Performed, Diagnosis, Need For Followup - Disposition Disposition: Routine/Home Disposition Time: 11:28 Condition: STABLE Prescriptions: Albuterol HFA [Ventolin HFA 90 mcg/actuation (8 g)] 1 - 2 puff IH Q4 PRN #1 inhaler PRN Reason: Shortness Of Breath Prednisone 50 mg PO DAILY #4 tab Instructions: Chronic Obstructive Pulmonary Disease (COPD), Including Emphysema
[2018-01-28 14:44] VITALS: BP 142/86; PULSE 72; O2SAT 99
--- NOTE | 2018-01-28 23:49 | CARD ---
APPROVED REPORT Date of service: 01/28/2018 EKG Measurement Heart [id number] <Conclusion> Atrial fibrillation Abnormal ECG
== END 2018-01-28 13:00 | disposition home or self-care (01) ==
LOC: H.ER 07:12
DX: J44.9 Chronic obstructive pulmonary disease, unspecified (principal); Z79.01 Long term (current) use of anticoagulants; I50.9 Heart failure, unspecified; Z79.84 Long term (current) use of oral hypoglycemic drugs; Z86.711 Personal history of pulmonary embolism; Z86.73 Personal history of transient ischemic attack (TIA), and cerebral infarction without residual deficits; Z88.0 Allergy status to penicillin

== ENCOUNTER 2018-01-30 22:35 | Observation (INO) | payer MEDICAID ==
[2018-01-30 22:35] VITALS: BMI 37.1
[2018-01-30] MEDS ORDERED: Albuterol-Ipratrop 3 mg / 0.5 (3 ml) UD IH STA ×3 (22:57→22:58)
--- NOTE | 2018-01-30 23:01 | ED PDOC ---
HPI: SOB/CHF/COPD Time Seen by Provider: 01/30/18 22:43 Chief Complaint (Nursing): Respiratory Distress History Per: Patient Onset/Duration Of Symptoms: Days (2) Current Symptoms Are (Timing): Still Present Quality: Tightness Current Respiratory Medications: See Home Med List Severity: Moderate Associated Symptoms: Chest Pain, Productive Cough Additional Complaint(s): SOB wheezing, chest tightness and nonproductive cough x 2 days. Denies cocaine use. Past Medical History Vital Signs: Last Vital Signs Temp 97.7 F 01/30/18 22:38 Pulse 95 H 01/30/18 22:38 Resp 28 H 01/30/18 22:38 BP 166/84 H 01/30/18 22:38 Pulse Ox 97 01/30/18 22:38 - Medical History PMH: Anxiety, Asthma, Atrial Fibrillation, Bronchitis, CAD, Cardia Arrhythmia, CHF, COPD, CVA, Depression, Diabetes, Deep Vein Thrombosis, Gastritis, HTN, Hypercholesterolemia, Hyperlipidemia, Hyperthyroidism, Peripheral Edema, Pne umonia, Pulmonary Embolism Denies: HIV, Chronic Kidney Disease - Surgical History Surgical History: Hernia Repair - Family History Family History: States: [place], CAD, Diabetes, Hypertension (mother) - Immunization History Hx Tetanus Toxoid Vaccination: No Hx Influenza Vaccination: No Hx Pneumococcal Vaccination: No - Home Medications Home Medications: Ambulatory Orders Medication Instructions Recorded RX: Digoxin 0.125 mg PO DAILY 30 Days #30 tab 08/26/17 RX: Colchicine 0.6 mg PO DAILY 09/13/17 RX: Losartan [Cozaar] 100 mg PO DAILY 09/13/17 RX: diltiaZEM CD [Cardizem CD] 240 mg PO DAILY 11/09/17 RX: GlipiZIDE [Glucotrol] 5 mg PO DAILY 01/03/18 RX: Apixaban [Eliquis] 5 mg PO Q12 tab 01/04/18 RX: Aspirin [Aspirin Chewable] 81 mg PO DAILY chew 01/04/18 RX: Atorvastatin [Lipitor] 40 mg PO DAILY tab 01/04/18 RX: Gabapentin [Neurontin] 300 mg PO Q12 cap 01/04/18 RX: metFORMIN [glucOPHAGE] 500 mg PO BID tab 01/04/18 RX: Albuterol HFA [Ventolin HFA 90 2 puff IH RQ6 PRN inhaler 12/25/18 mcg/actuation (8 g)] RX: Prednisone [Deltasone] 40 mg PO DAILY 5 Days tablet 01/31/18 - Allergies Allergies/Adverse Reactions: Allergies Allergy/AdvReac Type Severity Reaction Status Date / Time Penicillins Allergy RASH Verified 01/30/18 22:40 Review of Systems ROS Statement: Except As Marked, All Systems Reviewed And Found Negative Cardiovascular: Positive for: Chest Pain Respiratory: Positive for: Cough, Shortness of Breath Physical Exam - Reviewed Nursing Documentation Reviewed: Yes Vital Signs Reviewed: Yes - Physical Exam Appears: Positive for: Non-toxic, No Acute Distress Head Exam: Positive for: ATRAUMATIC, NORMAL INSPECTION, NORMOCEPHALIC Skin: Positive for: Normal Color, Warm, DRY Eye Exam: Positive for: EOMI, Normal appearance, PERRL ENT: Positive for: Normal ENT Inspection Neck: Positive for: Normal, Painless ROM Cardiovascular/Chest: Positive for: Regular Rate, Rhythm Respiratory: Positive for: Rhonchi, Wheezing. Negative for: Respiratory Distress Gastrointestinal/Abdominal: Positive for: Normal Exam, Soft Back: Positive for: Normal Inspection Extremity: Positive for: Normal ROM Neurologic/Psych: Positive for: Alert, Oriented - Laboratory Results Result Diagrams: 01/31/18 05:13 01/31/18 05:13 - ECG O2 Sat by Pulse Oximetry: 97 Disposition - Clinical Impression Clinical Impression: Respiratory distress - Patient ED Disposition Is Patient to be Admitted: Transfer of Care - Disposition Disposition: Transfer of Care Disposition Time: 00:00 Condition: FAIR Patient Signed Over To: Samantha Moulton
[2018-01-30] MEDS ORDERED: Albuterol-Ipratrop 3 mg / 0.5 (3 ml) UD ONE (23:17)
[2018-01-30 23:54] LABS: BASO % 0.2 % (0.0-2.0); EOS % 0.5 % (0.0-4.0); HEMOGLOBIN 11.9 g/dL (12.0-18.0); LYMPH # 0.9 K/uL (1.0-4.3); MEAN CELL VOLUME 86.5 fl (80.0-94.0); MEAN CORPUSCULAR HGB CONC 31.2 g/dL (33.0-37.0); MEAN PLATELET VOLUME 9.4 fl (7.2-11.7); MONO # 1.1 K/uL (0.0-0.8); MONO % 10.6 % (0.0-10.0); NEUT # 8.6 K/uL (1.8-7.0); NEUT % 80.7 % (50.0-75.0); NRBC % 0.1 % (0.0-0.0); PLATELET COUNT 232 K/uL (130-400); RBC 4.41 Mil/uL (4.40-5.90); RED CELL DISTRIBUTION WIDTH 18.1 % (11.5-14.5); WHITE BLOOD COUNT 10.7 K/uL (4.8-10.8)
[2018-01-31] MEDS ORDERED: IPRATROPIUM IH PRN (00:08)
[2018-01-31] MEDS ORDERED: Albuterol HFA 90 mcg/actuation (8 g) IH PRN (00:08)
--- NOTE | 2018-01-31 00:09 | ED PDOC ---
- Laboratory Results Result Diagrams: 01/30/18 23:39 01/30/18 23:39 - ECG O2 Sat by Pulse Oximetry: 97 (RA) Pulse Ox Interpretation: Normal Medical Decision Making Medical Decision Making: Time: Patient endorsed to me by Dr. Sanon pending workup and disposition. pt labs reviewed pt accepted by clinic md/hospitalist for obs tele. ----- Scribe Attestation: Documented by Hunter Estrella, acting as a scribe for Samantha Moulton MD. Provider Scribe Attestation: All medical record entries made by the Scribe were at my direction and personally dictated by me. I have reviewed the chart and agree that the record accurately reflects my personal performance of the history, physical exam, medical decision making, and the department course for this patient. I have also personally directed, reviewed, and agree with the discharge instructions and disposition. Disposition Counseled Patient/Family Regarding: Studies Performed, Diagnosis, Need For Followup - Clinical Impression Clinical Impression: Respiratory distress - POA Present On Arrival: None - Disposition Disposition: Hospitalized as Observation Patient Disposition Time: 01:00 Condition: STABLE
--- NOTE | 2018-01-31 00:36 | CP.PCM.HP ---
<ParishBeulah - Last Filed: 01/31/18 01:03> History of Present Illness - History of Present Illness History of Present Illness: 67 yo Male with PMHx of asthma, COPD, CVA, HTN, a fib, substance abuse (hx of cocaine use and smoking) presented to ED complaining of shortness of breath for 2 days and chest pain in the left side. Patient states that pain does not radiated to arm or neck. All workup has been negative, pt is well known by our service and has hx of been non-compliant with his home meds. Today, pt states that his dyspnea worsened, associated with cough and yellowish expectoration. Pt states that he had been using his inhalers at home with little relief. Otherwise he denies fever, chills, palpitations, abdominal pain, n/v/d/c, and urinary symptoms. Patient denies recent cocaine use. PMH: at [facility] PMHx: COPD, Afib, CVA, HTN, HLD, PVD, NIDDM2, gout, depression, cocaine abuse Medications: reviewed PSHx: bunionectomy, cardiac cath June 2016, I&D upper back 08/2017 FHx: HTN and DM SH: hx of cocaine abuse, smokes 3-4 cigarettes a day, (50+pack year history) drinks socially (2-3x a week) All: penicillin (rash) Present on Admission - Present on Admission Any Indicators Present on Admission: No Review of Systems - Review of Systems All systems: reviewed and no additional remarkable complaints except (HPI) Past Patient History - Infectious Disease Hx of Infectious Diseases: None - Tetanus Immunizations Tetanus Immunization: Unknown - Past Medical History & Family History Past Medical History?: Yes - Past Social History Smoking Status: Current Some Days Smoker - CARDIAC Hx Atrial Fibrillation: Yes Hx Cardia Arrhythmia: Yes Hx Congestive Heart Failure: Yes Hx Hypercholesterolemia: Yes Hx Hypertension: Yes Hx Peripheral Edema: Yes - PULMONARY Hx Asthma: Yes Hx Bronchitis: Yes Hx Chronic Obstructive Pulmonary Disease (COPD): Yes Hx Pneumonia: Yes Hx Pulmonary Embolism: Yes - NEUROLOGICAL Hx Neurological Disorder: Yes HX Cerebrovascular Accident: Yes (cerebellar accident) Hx Vertigo: Yes Other/Comment: Hx neuropathy - HEENT Hx HEENT Problems: No - RENAL Hx Chronic Kidney Disease: No - ENDOCRINE/METABOLIC Hx Hyperthyroidism: Yes - HEMATOLOGICAL/ONCOLOGICAL Hx Human Immunodeficiency Virus (HIV): No - INTEGUMENTARY Hx Dermatological Problems: Yes Hx Cellulitis: Yes Other/Comment: Hx chronic right foot ulcer - MUSCULOSKELETAL/RHEUMATOLOGICAL Hx Falls: No - GASTROINTESTINAL Hx Gastritis: Yes - GENITOURINARY/GYNECOLOGICAL Hx Genitourinary Disorders: No - PSYCHIATRIC Hx Anxiety: Yes Hx Depression: Yes - SURGICAL HISTORY Hx Surgeries: Yes Hx Herniorrhaphy: Yes Hx Orthopedic Surgery: Yes (Bunionectomy) - ANESTHESIA Hx Anesthesia: Yes Hx Anesthesia Reactions: No Meds Allergies/Adverse Reactions: Allergies Allergy/AdvReac Type Severity Reaction Status Date / Time Penicillins Allergy RASH Verified 01/30/18 22:40 Physical Exam - Constitutional Appears: No Acute Distress - Head Exam Head Exam: NORMAL INSPECTION - Eye Exam Eye Exam: EOMI, PERRL - Respiratory Exam Respiratory Exam: Decreased Breath Sounds, Rhonchi, Wheezes, NORMAL BREATHING PATTERN. absent: Respiratory Distress - Cardiovascular Exam Cardiovascular Exam: REGULAR RHYTHM, +S1, +S2. absent: Tachycardia - GI/Abdominal Exam GI & Abdominal Exam: Normal Bowel Sounds, Soft. absent: Distended, Tenderness - Extremities Exam Extremities exam: Negative for: pedal edema - Neurological Exam Neurological exam: Alert, CN II-XII Intact, Oriented x3 - Skin Skin Exam: Dry, Warm Results - Vital Signs Recent Vital Signs: Last Vital Signs Temp 97.7 F 01/30/18 22:38 Pulse 95 H 01/30/18 22:38 Resp 28 H 01/30/18 22:38 BP 166/84 H 01/30/18 22:38 Pulse Ox 97 01/31/18 00:09 - Labs Result Diagrams: 01/30/18 23:39 Labs: Laboratory Results - last 24 hr 01/30/18 01/30/18 23:39 23:39 WBC 10.7 RBC 4.41 Hgb 11.9 L Hct 38.2 MCV 86.5 MCH 27.0 MCHC 31.2 L RDW 18.1 H Plt Count 232 MPV 9.4 Neut % (Auto) 80.7 H Lymph % (Auto) 8.0 L Sandoval % (Auto) 10.6 H Eos % (Auto) 0.5 Baso % (Auto) 0.2 Neut # (Auto) 8.6 H Lymph # (Auto) 0.9 L Sandoval # (Auto) 1.1 H Eos # (Auto) 0.0 Baso # (Auto) 0.0 Troponin I 0.0200 Assessment & Plan - Assessment and Plan (Free Text) Assessment: 67 yo Male with PMHx of asthma, COPD, CVA, HTN, a fib, substance abuse (hx of cocaine use and current smoking) is admitted for acute asthma and/or Asthma exacerbation and chest pain. Acute asthma vs COPD exacerbation - acute on chronic - likely 2/2 to poor medicine compliance with baseline COPD - s/p duoneb and solumedrol in ED - c/w duoneb Q4H, Solumedrol 60 q12 - c/w home meds - follow up official CXR Chest pain r/o ACS - EKG pending - Troponin x1 negative, f/u trending - resumed home meds - EKG in am - h/o cocaine abuse, pt denies today, f/u drug screen Afib - chronic - Echo (09/2017): LVH with EF 60-65%. Mod-severe pulmonary HTN - EKG a fib - c/w with home meds NIDDM - chronic, uncontrolled - HbA1c 10.6 (08/2017) - c/w with home meds HTN/HLD - chronic - c/w with home meds h/o cocaine abuse - f/u drug screen DVT proplyx - c/w eliquis Case discussed with Dr Aguilar. <Maureen Aguilar - Last Filed: 02/01/18 10:11> Results - Vital Signs Recent Vital Signs: Last Vital Signs Temp 98.1 F 01/31/18 15:57 Pulse 84 01/31/18 15:57 Resp 20 01/31/18 15:57 BP 142/80 01/31/18 15:57 Pulse Ox 97 02/01/18 08:36 - Labs Result Diagrams: 01/31/18 05:13 01/31/18 05:13 Labs: Laboratory Results - last 24 hr 01/31/18 11:29 Troponin I < 0.0120 Attending/Attestation - Attestation I have personally seen and examined this patient.: Yes I have fully participated in the care of the patient.: Yes I have reviewed all pertinent clinical information: Yes Notes (Text): 02/01/18 10:11 agree with findings and plan as above. trend enzymes, cont bronchodilators. reeval in AM.
[2018-01-31] MEDS ORDERED: Albuterol-Ipratrop 3 mg / 0.5 (3 ml) UD ONE (01:04)
[2018-01-31] MEDS: Albuterol-Ipratrop 3 mg / 0.5 (3 ml) UD INH SCH ×5 (01:05→15:09)
[2018-01-31 02:02] LABS: ALB/GLOB RATIO 1.2 (1.0-2.1); ALBUMIN 3.6 g/dL (3.5-5.0); ALT/SGPT 31 U/L (21-72); AST/SGOT 28 U/L (17-59); BLOOD UREA NITROGEN 19 mg/dl (9-20); CALCIUM 11.6 mg/dL (8.4-10.2); GFR NON-AFRICAN AMERICAN 51
[2018-01-31 02:25] LABS: BANDS 1 % (0-2); EOSINOPHIL 1 % (0-7); LYMPHOCYTE 8 % (20-50); MONOCYTE 7 % (0-10); NEUTROPHIL 79 % (42-75); PLATELET ESTIMATE NORMAL (NORMAL); REACTIVE LYMPHOCYTES 4 % (0-0); TOTAL CELLS COUNTED 100
[2018-01-31 02:28] LABS: ANISOCYTOSIS SLIGHT; HYPOCHROMIC SLIGHT; TEARDROP CELLS SLIGHT
[2018-01-31 05:31] LABS: BASO % 0.1 % (0.0-2.0); EOS % 0.1 % (0.0-4.0); HEMOGLOBIN 12.2 g/dL (12.0-18.0); LYMPH # 0.3 K/uL (1.0-4.3); LYMPH % 3.4 % (20.0-40.0); MEAN CELL VOLUME 86.3 fl (80.0-94.0); MEAN CORPUSCULAR HEMOGLOBIN 27.4 pg (27.0-31.0); MEAN CORPUSCULAR HGB CONC 31.8 g/dL (33.0-37.0); MEAN PLATELET VOLUME 9.5 fl (7.2-11.7); MONO # 0.1 K/uL (0.0-0.8); MONO % 1.1 % (0.0-10.0); NEUT # 8.2 K/uL (1.8-7.0); NEUT % 95.3 % (50.0-75.0); PLATELET COUNT 233 K/uL (130-400); RBC 4.47 Mil/uL (4.40-5.90); RED CELL DISTRIBUTION WIDTH 18.1 % (11.5-14.5); WHITE BLOOD COUNT 8.6 K/uL (4.8-10.8)
[2018-01-31 06:09] LABS: ALB/GLOB RATIO 1.2 (1.0-2.1); ALBUMIN 3.7 g/dL (3.5-5.0); ALT/SGPT 31 U/L (21-72); AST/SGOT 22 U/L (17-59); BLOOD UREA NITROGEN 20 mg/dl (9-20); CALCIUM 11.2 mg/dL (8.4-10.2); GFR NON-AFRICAN AMERICAN > 60
[2018-01-31 08:19] VITALS: RESP 20
[2018-01-31 08:56] LABS: LYMPHOCYTE 2 % (20-50); MONOCYTE 1 % (0-10); NEUTROPHIL 97 % (42-75); PLATELET ESTIMATE NORMAL (NORMAL); TOTAL CELLS COUNTED 100
[2018-01-31] MEDS ORDERED: diltiaZEM 240 mg/24 Hours CD Cap PO SCH (09:00)
[2018-01-31] MEDS ORDERED: Digoxin 125 mcg (0.125 mg) Tab PO SCH (09:00)
[2018-01-31 09:34] VITALS: PULSE 125
--- NOTE | 2018-01-31 14:22 | CP.PCM.DIS ---
Provider - Provider Date of Admission: 01/31/18 00:15 Attending physician: Maureen Aguilar DO Time Spent in preparation of Discharge (in minutes): 35 Diagnosis - Discharge Diagnosis (1) COPD exacerbation Status: Acute Comment: Improved. (2) Chest pain Status: Acute Comment: ACS ruled out Hospital Course - Lab Results Lab Results: Most Recent Lab Values WBC 8.6 K/uL (4.8-10.8) 01/31/18 05:13 RBC 4.47 Mil/uL (4.40-5.90) 01/31/18 05:13 Hgb 12.2 g/dL (12.0-18.0) 01/31/18 05:13 Hct 38.6 % (35.0-51.0) 01/31/18 05:13 MCV 86.3 fl (80.0-94.0) 01/31/18 05:13 MCH 27.4 pg (27.0-31.0) 01/31/18 05:13 MCHC 31.8 g/dL (33.0-37.0) L 01/31/18 05:13 RDW 18.1 % (11.5-14.5) H 01/31/18 05:13 Plt Count 233 K/uL (130-400) 01/31/18 05:13 MPV 9.5 fl (7.2-11.7) 01/31/18 05:13 Neut % (Auto) 95.3 % (50.0-75.0) H 01/31/18 05:13 Lymph % (Auto) 3.4 % (20.0-40.0) L 01/31/18 05:13 [place] % (Auto) 1.1 % (0.0-10.0) 01/31/18 05:13 Eos % (Auto) 0.1 % (0.0-4.0) 01/31/18 05:13 Baso % (Auto) 0.1 % (0.0-2.0) 01/31/18 05:13 Neut # (Auto) 8.2 K/uL (1.8-7.0) H 01/31/18 05:13 Lymph # (Auto) 0.3 K/uL (1.0-4.3) L 01/31/18 05:13 [place] # (Auto) 0.1 K/uL (0.0-0.8) 01/31/18 05:13 Eos # (Auto) 0.0 K/uL (0.0-0.7) 01/31/18 05:13 Baso # (Auto) 0.0 K/uL (0.0-0.2) 01/31/18 05:13 Neutrophils % (Manual) 97 % (42-75) H 01/31/18 05:13 Band Neutrophils % 1 % (0-2) 01/30/18 23:39 Lymphocytes % (Manual) 2 % (20-50) L 01/31/18 05:13 Reactive Lymphs % 4 % (0-0) H 01/30/18 23:39 Monocytes % (Manual) 1 % (0-10) 01/31/18 05:13 Eosinophils % (Manual) 1 % (0-7) 01/30/18 23:39 Platelet Estimate Normal (NORMAL) 01/31/18 05:13 Hypochromasia (manual) Slight 01/30/18 23:39 Anisocytosis (manual) Slight 01/30/18 23:39 Tear Drop Cells Slight 01/30/18 23:39 Sodium 142 mmol/l (132-148) 01/31/18 05:13 Potassium 4.7 MMOL/L (3.6-5.0) 01/31/18 05:13 Chloride 108 mmol/L (98-107) H 01/31/18 05:13 Carbon Dioxide 25 mmol/L (22-30) 01/31/18 05:13 Anion Gap 14 (10-20) 01/31/18 05:13 BUN 20 mg/dl (9-20) 01/31/18 05:13 Creatinine 1.2 mg/dl (0.8-1.5) 01/31/18 05:13 Est GFR ( Amer) > 60 01/31/18 05:13 Est GFR (Non-Af Amer) > 60 01/31/18 05:13 POC Glucose (mg/dL) 193 mg/dL (65-110) H 01/31/18 05:54 Random Glucose 196 mg/dL (75-110) H 01/31/18 05:13 Calcium 11.2 mg/dL (8.4-10.2) H 01/31/18 05:13 Total Bilirubin 0.4 mg/dl (0.2-1.3) 01/31/18 05:13 AST 22 U/L (17-59) 01/31/18 05:13 ALT 31 U/L (21-72) 01/31/18 05:13 Alkaline Phosphatase 93 U/L (38-126) 01/31/18 05:13 Troponin I < 0.0120 ng/mL (0.00-0.120) 01/31/18 11:29 Total Protein 6.7 G/DL (6.3-8.2) 01/31/18 05:13 Albumin 3.7 g/dL (3.5-5.0) 01/31/18 05:13 Globulin 3.0 gm/dL (2.2-3.9) 01/31/18 05:13 Albumin/Globulin Ratio 1.2 (1.0-2.1) 01/31/18 05:13 - Hospital Course Hospital Course: 67 y/o with Hx of a.fib, CAD, COPD and CHF presented last night to ER c/o SOB and CP. Patient was admitted for COPD exacerbation and to r/o ACS. Patient received multiple neb treatments and IV steroids while in the hosp. Home meds were continued. Patient VS remained stable during his hsp stay, CXR showed no infiltrates, Tropx 3 WNL and EKG showed no acute ischemic changes. Today patient is to be DC home to c/w ambulatory treatment and f/u as outpatient. Discharge Exam - Head Exam Head Exam: NORMAL INSPECTION - Eye Exam Eye Exam: EOMI, PERRL - Respiratory Exam Respiratory Exam: NORMAL BREATHING PATTERN. absent: Clear to PA & Lateral (Transmitting sound scattered), Rales, Wheezes, Respiratory Distress - Cardiovascular Exam Cardiovascular Exam: Irregular Rhythm, +S1, +S2. absent: Tachycardia, Gallop - GI/Abdominal Exam GI & Abdominal Exam: Normal Bowel Sounds, Unremarkable - Extremities Exam Extremities exam: full ROM, normal capillary refill - Neurological Exam Neurological exam: Alert, Oriented x3 - Skin Skin Exam: Normal Color, Warm Discharge Plan - Discharge Medications Prescriptions: Prednisone [Deltasone] 40 mg PO DAILY 5 Days tablet - Follow Up Plan Condition: STABLE Disposition: HOME/ ROUTINE Patient education suggested?: Yes Instructions: Exacerbation of COPD Additional Instructions: Take meds as prescribed including Prednisone PO for 5 days F/U at [facility] in 2-3 days Referrals: [facility] [place] [Outside]
--- NOTE | 2018-01-31 14:55 | RAD ---
Date of service: 01/30/2018 HISTORY: cough COMPARISON: Chest radiographs 01/13/2018. FINDINGS: LUNGS: No active pulmonary disease. PLEURA: No significant pleural effusion identified, no pneumothorax apparent. CARDIOVASCULAR: No aortic atherosclerotic calcification present. Normal cardiac size. No pulmonary vascular congestion. OSSEOUS STRUCTURES: No significant abnormalities. VISUALIZED UPPER ABDOMEN: Normal. OTHER FINDINGS: None. IMPRESSION: No interval acute cardiopulmonary disease appreciated.
[2018-01-31 15:58] VITALS: BP 142/80; PULSE 84; TEMP 98.1
--- NOTE | 2018-01-31 18:47 | CARD ---
APPROVED REPORT Date of service: 01/30/2018 EKG Measurement Heart [id number] <Conclusion> Atrial fibrillation Abnormal ECG
[2018-02-01 08:37] VITALS: O2SAT 97
== END 2018-01-31 18:15 | disposition home or self-care (01) ==
LOC: H.ER 22:35 → H.ERHOLD 01-31 00:15 → H.TEL 01-31 03:13
PROVIDERS: ADMIT Student in an Organized Health Care Education/Training Program; ATTEND Student in an Organized Health Care Education/Training Program
DX: J44.1 Chronic obstructive pulmonary disease with (acute) exacerbation (principal); I48.2 Chronic atrial fibrillation; I27.20 Pulmonary hypertension, unspecified; E11.65 Type 2 diabetes mellitus with hyperglycemia; Z79.84 Long term (current) use of oral hypoglycemic drugs; E78.5 Hyperlipidemia, unspecified; I11.0 Hypertensive heart disease with heart failure; I50.9 Heart failure, unspecified; I25.10 Atherosclerotic heart disease of native coronary artery without angina pectoris; Z86.711 Personal history of pulmonary embolism; Z79.01 Long term (current) use of anticoagulants; Z86.73 Personal history of transient ischemic attack (TIA), and cerebral infarction without residual deficits; F32.9 Major depressive disorder, single episode, unspecified; F41.9 Anxiety disorder, unspecified; Z86.718 Personal history of other venous thrombosis and embolism; K29.70 Gastritis, unspecified, without bleeding; E78.00 Pure hypercholesterolemia, unspecified; Z79.82 Long term (current) use of aspirin; E11.51 Type 2 diabetes mellitus with diabetic peripheral angiopathy without gangrene; M10.9 Gout, unspecified; F17.210 Nicotine dependence, cigarettes, uncomplicated; Z88.0 Allergy status to penicillin
CPT/HCPCS: 36415; 71045; 80053; 82948; 84484; 85025; 93005; 94150; 94640; 96374; 99285; G0378; J2930

== ENCOUNTER 2018-02-02 00:45 | Emergency (ER) | payer MEDICAID ==
[2018-02-02 00:45] VITALS: PULSE 125; BMI 37.1
[2018-02-02] MEDS ORDERED: Albuterol-Ipratrop 3 mg / 0.5 (3 ml) UD IH STA ×3 (01:13→01:14)
--- NOTE | 2018-02-02 01:17 | ED PDOC ---
HPI: SOB/CHF/COPD Time Seen by Provider: 02/02/18 01:10 Chief Complaint (Nursing): Respiratory Distress Chief Complaint (Provider): sob History Per: Patient History/Exam Limitations: no limitations Onset/Duration Of Symptoms: Hrs Current Symptoms Are (Timing): Still Present Additional Complaint(s): 67 y/o male brought in by EMS for evaluation of shortness of breath x 3 hours. Patient states symptoms consistent with his asthma. Denies fever, chest pain, palpitations, leg pain/swelling. Past Medical History Reviewed: Historical Data, Nursing Documentation, Vital Signs Vital Signs: Last Vital Signs Temp 97.6 F 02/02/18 00:51 Pulse 108 H 02/02/18 00:51 Resp 17 02/02/18 00:51 BP 169/97 H 02/02/18 00:51 Pulse Ox 99 02/02/18 00:51 - Medical History PMH: Anxiety, Asthma, Atrial Fibrillation, Bronchitis, CAD, Cardia Arrhythmia, CHF, COPD, CVA, Depression, Diabetes, Deep Vein Thrombosis, Gastritis, HTN, Hypercholesterolemia, Hyperlipidemia, Hyperthyroidism, Peripheral Edema, Pneumonia, Pulmonary Embolism Denies: HIV, Chronic Kidney Disease - Surgical History Surgical History: Hernia Repair - Family History Family History: States: [place], CAD, Diabetes, Hypertension (mother) - Immunization History Hx Tetanus Toxoid Vaccination: No Hx Influenza Vaccination: No Hx Pneumococcal Vaccination: No - Home Medications Home Medications: Ambulatory Orders Medication Instructions Recorded Digoxin 0.125 mg PO DAILY 30 Days #30 tab 08/26/17 Colchicine 0.6 mg PO DAILY 09/13/17 Losartan [Cozaar] 100 mg PO DAILY 09/13/17 diltiaZEM CD [Cardizem CD] 240 mg PO DAILY 11/09/17 GlipiZIDE [Glucotrol] 5 mg PO DAILY 01/03/18 Apixaban [Eliquis] 5 mg PO Q12 tab 01/04/18 Aspirin [Aspirin Chewable] 81 mg PO DAILY chew 01/04/18 Atorvastatin [Lipitor] 40 mg PO DAILY tab 01/04/18 Gabapentin [Neurontin] 300 mg PO Q12 cap 01/04/18 metFORMIN [glucOPHAGE] 500 mg PO BID tab 01/04/18 Albuterol HFA [Ventolin HFA 90 2 puff IH RQ6 PRN inhaler 01/31/18 mcg/actuation (8 g)] Prednisone [Deltasone] 40 mg PO DAILY 5 Days tablet 01/31/18 - Allergies Allergies/Adverse Reactions: Allergies Allergy/AdvReac Type Severity Reaction Status Date / Time Penicillins Allergy RASH Verified 01/30/18 22:40 Review of Systems ROS Statement: Except As Marked, All Systems Reviewed And Found Negative Respiratory: Positive for: Shortness of Breath, Wheezing Physical Exam - Reviewed Nursing Documentation Reviewed: Yes Vital Signs Reviewed: Yes - Physical Exam Appears: Positive for: Well, Non-toxic, No Acute Distress Head Exam: Positive for: ATRAUMATIC, NORMAL INSPECTION, NORMOCEPHALIC Eye Exam: Positive for: Normal appearance ENT: Positive for: Normal ENT Inspection Cardiovascular/Chest: Positive for: Regular Rate, Rhythm Respiratory: Positive for: Wheezing (mild expiratory wheezing). Negative for: Accessory Muscle Use, Rales, Rhonchi, Respiratory Distress Gastrointestinal/Abdominal: Positive for: Normal Exam Back: Positive for: Normal Inspection Extremity: Positive for: Normal ROM Neurologic/Psych: Positive for: Alert, Oriented (x3) - ECG ECG: Positive for: Viewed By Me (reviewed by ED attending) ECG Rhythm: Positive for: Atrial Fibrillation O2 Sat by Pulse Oximetry: 99 - Progress ED Course And Treament: -duoneb x 3 -ekg On re-eval patient sleeping. No respiratory distress. Wheezing improved. Vitals stable on monitor Patient educated on findings, discharged with instructions to follow up PMD within 2-3 days Return precautions given Disposition - Clinical Impression Clinical Impression: COPD (chronic obstructive pulmonary disease) - Patient ED Disposition Is Patient to be Admitted: No Counseled Patient/Family Regarding: Studies Performed, Diagnosis, Need For Followup - Disposition Disposition: Routine/Home Disposition Time: 03:51 Condition: IMPROVED Instructions: Chronic Obstructive Pulmonary Disease (COPD), Including Emphysema
[2018-02-02] MEDS ORDERED: Albuterol-Ipratrop 3 mg / 0.5 (3 ml) UD ONE (01:30)
[2018-02-02 04:25] VITALS: BP 158/94; PULSE 88; RESP 20; TEMP 98.2; O2SAT 97
== END 2018-02-02 04:37 | disposition home or self-care (01) ==
LOC: H.ER 00:45
DX: J44.9 Chronic obstructive pulmonary disease, unspecified (principal); E11.9 Type 2 diabetes mellitus without complications; E05.90 Thyrotoxicosis, unspecified without thyrotoxic crisis or storm; E78.00 Pure hypercholesterolemia, unspecified; I50.9 Heart failure, unspecified; Z79.01 Long term (current) use of anticoagulants; Z79.84 Long term (current) use of oral hypoglycemic drugs; Z86.718 Personal history of other venous thrombosis and embolism; Z86.73 Personal history of transient ischemic attack (TIA), and cerebral infarction without residual deficits; Z86.711 Personal history of pulmonary embolism; Z88.0 Allergy status to penicillin

== ENCOUNTER 2018-02-03 00:07 | Emergency (ER) | payer MEDICAID ==
[2018-02-03 00:07] VITALS: PULSE 125; BMI 37.1
[2018-02-03 00:34] VITALS: PULSE 89
[2018-02-03] MEDS ORDERED: Albuterol-Ipratrop 3 mg / 0.5 (3 ml) UD INH STA ×3 (00:51→00:52)
--- NOTE | 2018-02-03 00:53 | ED PDOC ---
HPI: Influenza Time Seen by Provider: 02/03/18 00:32 Chief Complaint: Cough, Cold, Congestion Past Medical History Vital Signs: Last Vital Signs Temp 98.0 F 02/03/18 00:16 Pulse 89 02/03/18 00:28 Resp 16 02/03/18 00:16 BP 159/89 H 02/03/18 00:28 Pulse Ox 100 02/03/18 00:28 - Medical History PMH: Anxiety, Asthma, Atrial Fibrillation, Bronchitis, CAD, Cardia Arrhythmia, CHF, COPD, CVA, Depression, Diabetes, Deep Vein Thrombosis, Gastritis, HTN, Hypercholesterolemia, Hyperlipidemia, Hyperthyroidism, Peripheral Edema, Pneumonia, Pulmonary Embolism Denies: HIV, Chronic Kidney Disease - Surgical History Surgical History: Hernia Repair - Family History Family History: States: [place], CAD, Diabetes, Hypertension (mother) - Immunization History Hx Tetanus Toxoid Vaccination: No Hx Influenza Vaccination: No Hx Pneumococcal Vaccination: No - Home Medications Home Medications: Ambulatory Orders Medication Instructions Recorded Digoxin 0.125 mg PO DAILY 30 Days #30 tab 08/26/17 Colchicine 0.6 mg PO DAILY 09/13/17 Losartan [Cozaar] 100 mg PO DAILY 09/13/17 diltiaZEM CD [Cardizem CD] 240 mg PO DAILY 11/09/17 GlipiZIDE [Glucotrol] 5 mg PO DAILY 01/03/18 Apixaban [Eliquis] 5 mg PO Q12 tab 01/04/18 Aspirin [Aspirin Chewable] 81 mg PO DAILY chew 01/04/18 Atorvastatin [Lipitor] 40 mg PO DAILY tab 01/04/18 Gabapentin [Neurontin] 300 mg PO Q12 cap 01/04/18 metFORMIN [glucOPHAGE] 500 mg PO BID tab 01/04/18 Albuterol HFA [Ventolin HFA 90 2 puff IH RQ6 PRN inhaler 01/31/18 mcg/actuation (8 g)] Prednisone [Deltasone] 40 mg PO DAILY 5 Days tablet 01/31/18 - Allergies Allergies/Adverse Reactions: Allergies Allergy/AdvReac Type Severity Reaction Status Date / Time Penicillins Allergy RASH Verified 01/30/18 22:40 - ECG O2 Sat by Pulse Oximetry: 100 Disposition - Disposition
--- NOTE | 2018-02-03 00:54 | ED PDOC ---
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 Patient otherwise denies chest pain, fever, and leg swelling. PMD: Maricruz Solis Past Medical History Reviewed: Historical Data, Nursing Documentation, Vital Signs Vital Signs: Last Vital Signs Temp 98.0 F 02/03/18 00:16 Pulse 89 02/03/18 00:28 Resp 16 02/03/18 00:16 BP 159/89 H 02/03/18 00:28 Pulse Ox 100 02/03/18 00:28 - Medical History PMH: Anxiety, Asthma, Atrial Fibrillation, Bronchitis, CAD, Cardia Arrhythmia, CHF, COPD, CVA, Depression, Diabetes, Deep Vein Thrombosis, Gastritis, HTN, Hypercholesterolemia, Hyperlipidemia, Hyperthyroidism, Peripheral Edema, Pneumonia, Pulmonary Embolism Denies: HIV, Chronic Kidney Disease - Surgical History Surgical History: Hernia Repair - Family History Family History: States: [place], CAD, Diabetes, Hypertension (mother) - Social History Current smoker - smoking cessation education provided: Yes Alcohol: None Drugs: Denies - Immunization History Hx Tetanus Toxoid Vaccination: No Hx Influenza Vaccination: No Hx Pneumococcal Vaccination: No - Home Medications Home Medications: Ambulatory Orders Medication Instructions Recorded Digoxin 0.125 mg PO DAILY 30 Days #30 tab 08/26/17 Colchicine 0.6 mg PO DAILY 09/13/17 Losartan [Cozaar] 100 mg PO DAILY 09/13/17 diltiaZEM CD [Cardizem CD] 240 mg PO DAILY 11/09/17 GlipiZIDE [Glucotrol] 5 mg PO DAILY 01/03/18 Apixaban [Eliquis] 5 mg PO Q12 tab 01/04/18 Aspirin [Aspirin Chewable] 81 mg PO DAILY chew 01/04/18 Atorvastatin [Lipitor] 40 mg PO DAILY tab 01/04/18 Gabapentin [Neurontin] 300 mg PO Q12 cap 01/04/18 metFORMIN [glucOPHAGE] 500 mg PO BID tab 01/04/18 Albuterol HFA [Ventolin HFA 90 2 puff IH RQ6 PRN inhaler 01/31/18 mcg/actuation (8 g)] Prednisone [Deltasone] 40 mg PO DAILY 5 Days tablet 01/31/18 - Allergies Allergies/Adverse Reactions: Allergies Allergy/AdvReac Type Severity Reaction Status Date / Time Penicillins Allergy RASH Verified 01/30/18 22:40 Wells Criteria for PE - Wells Criteria for Pulmonary Embolism Clinical Signs and Symptoms of DVT: No P.E is #1 Diagnosis, or Equally Likely: No Heart Rate >100: No Immobilization at least 3 days;Surgery previous 4 weeks: No Previous, objectively diagnosed PE or DVT: No Hemoptysis: No Malignancy w/treatment within 6 months, or palliative: No Total Score: 0 Review of Systems ROS Statement: Except As Marked, All Systems Reviewed And Found Negative Constitutional: Negative for: Fever Cardiovascular: Negative for: Chest Pain Respiratory: Positive for: Cough, Shortness of Breath, Wheezing Musculoskeletal: Negative for: Leg Pain Physical Exam - Reviewed Nursing Documentation Reviewed: Yes Vital Signs Reviewed: Yes - Physical Exam Appears: Positive for: No Acute Distress Head Exam: Positive for: ATRAUMATIC, NORMOCEPHALIC Skin: Positive for: Normal Color Eye Exam: Positive for: Normal appearance, EOMI, PERRL ENT: Positive for: Normal ENT Inspection Neck: Positive for: Normal, Painless ROM, Supple Cardiovascular/Chest: Positive for: Irregularly Irregular Respiratory: Positive for: Wheezing (diffuse bilaterally). Negative for: Respiratory Distress Gastrointestinal/Abdominal: Positive for: Normal Exam, Soft. Negative for: Tenderness Extremity: Positive for: Normal ROM. Negative for: Pedal Edema, Calf Tenderness, Swelling Neurologic/Psych: Positive for: Alert, Oriented (x3) - Laboratory Results Result Diagrams: 02/03/18 02:30 02/03/18 02:30 - ECG ECG: Positive for: Interpreted By Me, Viewed By Me ECG Rhythm: Positive for: Normal QRS, Sinus Rhythm (87), Atrial Fibrillation O2 Sat by Pulse Oximetry: 100 (RA) Pulse Ox Interpretation: Normal - Progress Re-evaluation Time: 03:14 Condition: Re-examined, Improved Medical Decision Making Medical Decision Making: Time: 49 Impression: wheezing and difficulty breathing DDx: COPD, asthma exacerbation Initial Plan: --EKG --BNP --BMP --CBC with differential --Duoneb 3ml INH x3 --Methylprednisolone 125mg IVP --Peak flow pre/post x3 Scribe Attestation: Documented by Angela Batres, acting as a scribe for Mery Mazariegos MD. Provider Scribe Attestation: All medical record entries made by the Scribe were at my direction and personally dictated by me. I have reviewed the chart and agree that the record accurately reflects my personal performance of the history, physical exam, medical decision making, and the department course for this patient. I have also personally directed, reviewed, and agree with the discharge instructions and disposition. Disposition - Clinical Impression Clinical Impression: COPD exacerbation - Patient ED Disposition Is Patient to be Admitted: No Doctor Will See Patient In The: Office Counseled Patient/Family Regarding: Studies Performed, Diagnosis, Need For Followup - Disposition Referrals: [facility] [Outside] Disposition: Routine/Home Disposition Time: 03:15 Condition: GOOD Additional Instructions: ROMARIO MOORE, thank you for letting us take care of you today. Your provider was Mery Mazariegos MD and you were treated for SOB. The emergency medical care you received today was directed at your acute symptoms. If you were prescribed any medication, please fill it and take as directed. It may take several days for your symptoms to resolve. Return to the Emergency Department if your symptoms worsen, do not improve, or if you have any other problems. Please contact your doctor or call one of the physicians/clinics you have been referred to that are listed on the Patient Visit Information form that is included in your discharge packet. Bring any paperwork you were given at discharge with you along with any medications you are taking to your follow up visit. Our treatment cannot replace ongoing medical care by a primary care provider outside of the emergency department. Thank you for allowing the [facility] team to be part of your care today. If you had an X-Ray or CT scan: A Radiologist will review the ED reading if any change in treatment is needed we will contact you. If you had a blood, urine, or wound culture: It will take several days for the results, if any change in treatment is needed we will contact you. If you had an STI test: It will take 48 hours for the results. Please call after 1 week if you have not heard back. Instructions: Chronic Obstructive Pulmonary Disease (COPD), Including Emphysema Forms: [employer] (Turkish)
--- NOTE | 2018-02-03 00:56 | CARD ---
APPROVED REPORT Date of service: 02/02/2018 EKG Measurement Heart [id number] <Conclusion> Atrial fibrillation Abnormal ECG
[2018-02-03] MEDS ORDERED: Albuterol-Ipratrop 3 mg / 0.5 (3 ml) UD ONE (01:19)
[2018-02-03 02:41] LABS: BASO # 0.1 K/uL (0.0-0.2); BASO % 0.4 % (0.0-2.0); EOS % 0.3 % (0.0-4.0); HEMOGLOBIN 12.4 g/dL (12.0-18.0); LYMPH # 1.6 K/uL (1.0-4.3); LYMPH % 12.5 % (20.0-40.0); MEAN CELL VOLUME 87.6 fl (80.0-94.0); MEAN CORPUSCULAR HEMOGLOBIN 26.9 pg (27.0-31.0); MEAN CORPUSCULAR HGB CONC 30.7 g/dL (33.0-37.0); MEAN PLATELET VOLUME 10.1 fl (7.2-11.7); MONO # 1.8 K/uL (0.0-0.8); MONO % 14.1 % (0.0-10.0); NEUT # 9.3 K/uL (1.8-7.0); NEUT % 72.7 % (50.0-75.0); NRBC % 0.1 % (0.0-0.0); RBC 4.59 Mil/uL (4.40-5.90); RED CELL DISTRIBUTION WIDTH 19.3 % (11.5-14.5); WHITE BLOOD COUNT 12.8 K/uL (4.8-10.8)
[2018-02-03 03:12] LABS: B-TYPE NATRIURETIC PEPTIDE 480 pg/ml (0-900)
[2018-02-03 03:13] LABS: BLOOD UREA NITROGEN 29 mg/dl (9-20); CALCIUM 11.2 mg/dL (8.4-10.2); GFR NON-AFRICAN AMERICAN > 60
[2018-02-03 06:16] VITALS: BP 155/98; RESP 18; TEMP 98.1; O2SAT 96
--- NOTE | 2018-02-03 14:51 | RAD ---
Date of service: 02/03/2018 HISTORY: dyspnea COMPARISON: None comparison chest 01/30/2018 FINDINGS: LUNGS: Minor bibasilar atelectasis or scarring. PLEURA: No significant pleural effusion identified, no pneumothorax apparent. CARDIOVASCULAR: Minor aortic atherosclerotic calcification present. Cardiomegaly.. No pulmonary vascular congestion. OSSEOUS STRUCTURES: Mild multilevel degenerative spondylosis of the thoracic spine VISUALIZED UPPER ABDOMEN: Normal. OTHER FINDINGS: None. IMPRESSION: Minor bibasilar atelectasis or scarring
== END 2018-02-03 06:15 | disposition home or self-care (01) ==
LOC: H.ER 00:07
DX: J44.1 Chronic obstructive pulmonary disease with (acute) exacerbation (principal); E11.9 Type 2 diabetes mellitus without complications; E78.00 Pure hypercholesterolemia, unspecified; I11.0 Hypertensive heart disease with heart failure; I25.10 Atherosclerotic heart disease of native coronary artery without angina pectoris; Z79.82 Long term (current) use of aspirin; Z79.84 Long term (current) use of oral hypoglycemic drugs; Z86.711 Personal history of pulmonary embolism; Z86.718 Personal history of other venous thrombosis and embolism; Z86.73 Personal history of transient ischemic attack (TIA), and cerebral infarction without residual deficits; Z88.0 Allergy status to penicillin
CPT/HCPCS: 71045; 80048; 83880; 85025; 93005; 94640; 96374; 99283; J2930

== ENCOUNTER 2018-02-07 04:30 | Emergency (ER) | payer MEDICAID ==
[2018-02-07 04:30] VITALS: PULSE 125; BMI 37.1
[2018-02-07] MEDS ORDERED: Albuterol-Ipratrop 3 mg / 0.5 (3 ml) UD INH STA ×3 (05:56→06:40)
[2018-02-07] MEDS ORDERED: Albuterol-Ipratrop 3 mg / 0.5 (3 ml) UD ONE ×2 (06:17→07:00)
--- NOTE | 2018-02-07 06:44 | ED PDOC ---
HPI: SOB/CHF/COPD Time Seen by Provider: 02/07/18 04:30 Chief Complaint (Nursing): Shortness Of Breath Chief Complaint (Provider): Shortness Of Breath History Per: Patient History/Exam Limitations: no limitations Onset/Duration Of Symptoms: Hrs Current Symptoms Are (Timing): Still Present Additional Complaint(s): patient is a 67 y/o male with a significant PMHx of asthma, bronchitis, and PNA who presents to the ED for evaluation of SOB and wheezing, onset today. no fever/chills/vomiting. PCP: None Provided Past Medical History Reviewed: Historical Data, Nursing Documentation, Vital Signs Vital Signs: Last Vital Signs Temp 99.0 F 02/07/18 04:50 Pulse 94 H 02/07/18 04:50 Resp BP 171/106 H 02/07/18 04:50 Pulse Ox 98 02/07/18 04:50 - Medical History PMH: Anxiety, Asthma, Atrial Fibrillation, Back Problems, Bronchitis, CAD, Cardia Arrhythmia, CHF, COPD, CVA, Depression, Diabetes, Deep Vein Thrombosis, Gastritis, HTN, Hypercholesterolemia, Hyperlipidemia, Hyperthyroidism, Peripheral Edema, Pneumonia, Pulmonary Embolism Denies: HIV, Chronic Kidney Disease - Surgical History Surgical History: No Surg Hx, Hernia Repair - Family History Family History: States: [place], CAD, Diabetes, Hypertension (mother) - Social History Current smoker - smoking cessation education provided: No Ex-Smoker (has not smoked in the last 12 months): Yes Alcohol: Occasional Drugs: Denies - Immunization History Hx Tetanus Toxoid Vaccination: No Hx Influenza Vaccination: No Hx Pneumococcal Vaccination: No - Home Medications Home Medications: Ambulatory Orders Medication Instructions Recorded RX: Digoxin 0.125 mg PO DAILY 30 Days #30 tab 08/26/17 RX: Colchicine 0.6 mg PO DAILY 09/13/17 RX: Losartan [Cozaar] 100 mg PO DAILY 09/13/17 RX: diltiaZEM CD [Cardizem CD] 240 mg PO DAILY 11/09/17 RX: GlipiZIDE [Glucotrol] 5 mg PO DAILY 01/03/18 RX: Apixaban [Eliquis] 5 mg PO Q12 tab 01/04/18 RX: Aspirin [Aspirin Chewable] 81 mg PO DAILY chew 01/04/18 RX: Atorvastatin [Lipitor] 40 mg PO DAILY tab 01/04/18 RX: Gabapentin [Neurontin] 300 mg PO Q12 cap 01/04/18 RX: metFORMIN [glucOPHAGE] 500 mg PO BID tab 01/04/18 RX: Albuterol HFA [Ventolin HFA 90 2 puff IH RQ6 PRN inhaler 01/31/18 mcg/actuation (8 g)] RX: Prednisone [Deltasone] 40 mg PO DAILY 5 Days tablet 01/31/18 RX: Albuterol HFA [Ventolin HFA 90 1 - 2 puff IH Q4H PRN #1 bottle 02/07/18 mcg/actuation (8 g)] predniSONE [Prednisone] 40 mg PO DAILY #8 tab 02/07/18 - Allergies Allergies/Adverse Reactions: Allergies Allergy/AdvReac Type Severity Reaction Status Date / Time Penicillins Allergy RASH Verified 02/07/18 04:38 Curb-65 Severity Score - CURB-65 Severity Score Confusion: No Bun >19mg/dl (>7mmol/L): No Respiratory Rate greater than/equal to 30: No Systolic BP <90 or Diastolic BP less than/equal 60mmHg: No Age >64: Yes Curb-65 Score: 1 Percentage 30-day mortality: 2.7% Review of Systems ROS Statement: Except As Marked, All Systems Reviewed And Found Negative Respiratory: Positive for: Shortness of Breath, Wheezing Physical Exam - Reviewed Nursing Documentation Reviewed: Yes Vital Signs Reviewed: Yes - Physical Exam Appears: Positive for: No Acute Distress Head Exam: Positive for: ATRAUMATIC, NORMAL INSPECTION, NORMOCEPHALIC Skin: Positive for: Normal Color Eye Exam: Positive for: Normal appearance ENT: Positive for: Normal ENT Inspection Neck: Positive for: Normal Cardiovascular/Chest: Positive for: Regular Rate, Rhythm Respiratory: Positive for: Wheezing Gastrointestinal/Abdominal: Positive for: Normal Exam Extremity: Positive for: Normal ROM (Upper/Lower) Neurologic/Psych: Positive for: Alert, Oriented - ECG O2 Sat by Pulse Oximetry: 98 (RA) Pulse Ox Interpretation: Normal Medical Decision Making Medical Decision Making: Time: 555 Plan: asthma/copd exacerbation [Duoneb 3 mg/0.5 mg (3 ml) UD] 3 ml INH [Duoneb 3 mg/0.5 mg (3 ml) UD] 3 ml INH Nebulizer Treatment Peak Flow Pre/Post TX .Pre/Post Treatment Peak Flow Pre/Post TX .Pre/Post Treatment pt feels improved after treatment. not tachypneic, tachycardic, not short of breth or wheezing anymore. pt stable for dc home. DX: asthma/copd pt improved. stable for dc home. Scribe Attestation: Documented by Isaac Lopez acting as a scribe for Samantha Moulton MD. Provider Scribe Attestation: All medical record entries made by the Scribe were at my direction and personally dictated by me. I have reviewed the chart and agree that the record accurately reflects my personal performance of the history, physical exam, medical decision making, and the department course for this patient. I have also personally directed, reviewed, and agree with the discharge instructions and disposition. Disposition - Clinical Impression Clinical Impression: Asthma - Patient ED Disposition Is Patient to be Admitted: No Counseled Patient/Family Regarding: Studies Performed, Diagnosis, Need For Followup - Disposition Disposition: Routine/Home Disposition Time: 07:00 Condition: IMPROVED Additional Instructions: follow up as an outpatient continue home medications return to the ED with any worsening or concerning symptoms Prescriptions: RX: Albuterol HFA [Ventolin HFA 90 mcg/actuation (8 g)] 1 - 2 puff IH Q4H PRN #1 bottle PRN Reason: Wheezing predniSONE [Prednisone] 40 mg PO DAILY #8 tab Instructions: Asthma, Adult (DC) Forms: [employer] (Armenian)
[2018-02-07 07:31] VITALS: BP 156/99; PULSE 88; RESP 16; TEMP 97.9
[2018-02-07 23:35] VITALS: O2SAT 98
== END 2018-02-07 07:29 | disposition home or self-care (01) ==
LOC: H.ER 04:30
DX: J45.909 Unspecified asthma, uncomplicated (principal)

== ENCOUNTER 2018-02-28 17:49 | Emergency (ER) | payer MEDICAID ==
[2018-02-28 17:49] VITALS: PULSE 125; BMI 37.1
[2018-02-28] MEDS ORDERED: Albuterol-Ipratrop 3 mg / 0.5 (3 ml) UD INH STA ×2 (18:08→21:05)
[2018-02-28] MEDS ORDERED: Albuterol-Ipratrop 3 mg / 0.5 (3 ml) UD ONE ×2 (18:31→21:27)
--- NOTE | 2018-02-28 18:39 | ED PDOC ---
HPI: SOB/CHF/COPD Time Seen by Provider: 02/28/18 18:07 Chief Complaint (Nursing): Respiratory Distress Chief Complaint (Provider): Asthma exacerbation History Per: Patient History/Exam Limitations: no limitations Onset/Duration Of Symptoms: Hrs Current Symptoms Are (Timing): Still Present Recently: Seen In ED Additional History Per: Patient Additional Complaint(s): 67yo male with history of asthma, well known to ER, brought by EMS for evaluation. Patient reports shortness of breath, which is consistent with his prior presentation. He denies any fever, chills, chest pain and offers no additional complaints. Past Medical History Vital Signs: Last Vital Signs Temp 98.1 F 02/28/18 17:51 Pulse 86 02/28/18 17:51 Resp 20 02/28/18 17:51 BP 125/81 02/28/18 17:51 Pulse Ox 100 02/28/18 17:51 - Medical History PMH: Anxiety, Asthma, Atrial Fibrillation, Back Problems, Bronchitis, CAD, Cardia Arrhythmia, CHF, COPD, CVA, Depression, Diabetes, Deep Vein Thrombosis, Gastritis, HTN, Hypercholesterolemia, Hyperlipidemia, Hyperthyroidism, Peripheral Edema, Pneumonia, Pulmonary Embolism Denies: HIV, Chronic Kidney Disease - Surgical History Surgical History: Hernia Repair - Family History Family History: States: [place], CAD, Diabetes, Hypertension (mother) - Living Arrangements Living Arrangements: Other - Social History Drugs: Cocaine - Immunization History Hx Tetanus Toxoid Vaccination: No Hx Influenza Vaccination: No Hx Pneumococcal Vaccination: No - Home Medications Home Medications: Ambulatory Orders Medication Instructions Recorded RX: Digoxin 0.125 mg PO DAILY 30 Days #30 tab 08/26/17 RX: Colchicine 0.6 mg PO DAILY 09/13/17 RX: Losartan [Cozaar] 100 mg PO DAILY 09/13/17 RX: diltiaZEM CD [Cardizem CD] 240 mg PO DAILY 11/09/17 RX: GlipiZIDE [Glucotrol] 5 mg PO DAILY 01/03/18 RX: Apixaban [Eliquis] 5 mg PO Q12 tab 01/04/18 RX: Aspirin [Aspirin Chewable] 81 mg PO DAILY chew 01/04/18 RX: Atorvastatin [Lipitor] 40 mg PO DAILY tab 01/04/18 RX: Gabapentin [Neurontin] 300 mg PO Q12 cap 01/04/18 RX: metFORMIN [glucOPHAGE] 500 mg PO BID tab 01/04/18 RX: Albuterol HFA [Ventolin HFA 90 1 - 2 puff IH Q4H PRN #1 bottle 02/07/18 mcg/actuation (8 g)] RX: predniSONE [predniSONE Tab] 60 mg PO DAILY #9 tab 02/28/18 - Allergies Allergies/Adverse Reactions: Allergies Allergy/AdvReac Type Severity Reaction Status Date / Time Penicillins Allergy RASH Verified 02/28/18 17:50 Review of Systems ROS Statement: Except As Marked, All Systems Reviewed And Found Negative Constitutional: Negative for: Fever, Chills Cardiovascular: Negative for: Chest Pain Respiratory: Positive for: Cough, Shortness of Breath Physical Exam - Reviewed Nursing Documentation Reviewed: Yes Vital Signs Reviewed: Yes - Physical Exam Appears: Positive for: No Acute Distress Head Exam: Positive for: ATRAUMATIC, NORMAL INSPECTION, NORMOCEPHALIC Skin: Positive for: Normal Color Eye Exam: Positive for: Normal appearance Neck: Positive for: Normal, Supple Cardiovascular/Chest: Positive for: Irregularly Irregular Respiratory: Positive for: Wheezing (bilateral wheezing) Gastrointestinal/Abdominal: Positive for: Normal Exam, Soft Extremity: Positive for: Normal ROM, Other (chronic anasarca) Neurologic/Psych: Positive for: Alert, Oriented. Negative for: Motor/Sensory Deficits - ECG ECG: Positive for: Interpreted By Me, Viewed By Me ECG Rhythm: Positive for: Atrial Fibrillation Rate: 107 O2 Sat by Pulse Oximetry: 100 (RA) Pulse Ox Interpretation: Normal Medical Decision Making Medical Decision Making: Impression: Asthma exacerbation Plan: -- Duoneb 3ml INH -- Solumderol 125mg IVP -- EKG -- no distress in ED 1900 Patient to be signed out to Dr. Hernandez pending reassessment, final disposition. Scribe Attestation: Documented by Jennifer Durand acting as a scribe for Carlos Berumen DO. Provider Attestation: All medical record entries made by the Scribe were at my direction and personally dictated by me. I have reviewed the chart and agree that the record accurately reflects my personal performance of the history, physical exam, medical decision making, and the department course for this patient. I have also personally directed, reviewed, and agree with the discharge instructions and disposition. Disposition - Clinical Impression Clinical Impression: COPD exacerbation - Patient ED Disposition Is Patient to be Admitted: Transfer of Care - Disposition Referrals: Kassandra Noel MD [Family Provider] - Disposition: Transfer of Care Disposition Time: 19:00 Condition: STABLE Prescriptions: RX: predniSONE [predniSONE Tab] 60 mg PO DAILY #9 tab Instructions: Exacerbation of COPD Forms: [facility] (Kyrgyz) Print Language: BURMESE Patient Signed Over To: Niraj Hernandez
--- NOTE | 2018-02-28 19:17 | ED PDOC ---
- ECG O2 Sat by Pulse Oximetry: 100 (RA) Medical Decision Making Medical Decision Makin:00 Patient endorsed to provider by Dr. Berumen pending reevaluation. 21:05 Patient reports feeling much better with considerably less wheezing. He is not in respiratory distress and vitals are stable. Patient is requesting one more Duoneb treatment prior to discharge. Encouraged patient to follow up as an outpatient. Patient is well appearing and medically stable for discharge home. Return precautions provided. Scribe Attestation: Documented by Jose Guadalupe Kuhn, acting as a scribe for Niraj Hernandez MD Provider Scribe Attestation: All medical record entries made by the Scribe were at my direction and personally dictated by me. I have reviewed the chart and agree that the record accurately reflects my personal performance of the history, physical exam, medical decision making, and the department course for this patient. I have also personally directed, reviewed, and agree with the discharge instructions and disposition. Disposition - Clinical Impression Clinical Impression: COPD exacerbation - POA Present On Arrival: None - Disposition Referrals: Kassandra Noel MD [Family Provider] - Disposition: Routine/Home Disposition Time: 21:10 Condition: STABLE Prescriptions: predniSONE [predniSONE Tab] 60 mg PO DAILY #9 tab Instructions: Exacerbation of COPD Forms: [employer] (Ghanaian) Print Language: MONTENEGRIN
[2018-02-28 22:06] VITALS: TEMP 98.2
[2018-02-28 22:07] VITALS: BP 134/84; RESP 18
--- NOTE | 2018-03-01 12:19 | CARD ---
APPROVED REPORT Date of service: 02/28/2018 EKG Measurement Heart [id number] <Conclusion> Atrial fibrillation with rapid ventricular response Nonspecific ST abnormality Abnormal ECG
[2018-03-02 16:03] VITALS: PULSE 107; O2SAT 100
== END 2018-02-28 21:53 | disposition home or self-care (01) ==
LOC: H.ER 17:49
DX: J44.1 Chronic obstructive pulmonary disease with (acute) exacerbation (principal)
CPT/HCPCS: 93005; 94150; 94640; 96372; 99285; J2930

== ENCOUNTER 2018-03-02 14:32 | Observation (INO) | payer MEDICAID ==
[2018-03-02 14:32] VITALS: BMI 37.1
[2018-03-02] MEDS: Albuterol-Ipratrop 3 mg / 0.5 (3 ml) UD INH STA (15:03)
[2018-03-02] MEDS ORDERED: Albuterol-Ipratrop 3 mg / 0.5 (3 ml) UD INH STA (15:06)
[2018-03-02 15:26] LABS: BASO # 0.1 K/uL (0.0-0.2); EOS # 0.1 K/uL (0.0-0.7); EOS % 1.5 % (0.0-4.0); HEMOGLOBIN 11.6 g/dL (12.0-18.0); LYMPH # 1.3 K/uL (1.0-4.3); LYMPH % 14.6 % (20.0-40.0); MEAN CELL VOLUME 85.6 fl (80.0-94.0); MEAN CORPUSCULAR HEMOGLOBIN 26.8 pg (27.0-31.0); MEAN CORPUSCULAR HGB CONC 31.3 g/dL (33.0-37.0); MEAN PLATELET VOLUME 9.9 fl (7.2-11.7); MONO # 0.9 K/uL (0.0-0.8); MONO % 10.2 % (0.0-10.0); NEUT # 6.3 K/uL (1.8-7.0); NEUT % 72.7 % (50.0-75.0); RBC 4.34 Mil/uL (4.40-5.90); RED CELL DISTRIBUTION WIDTH 19.3 % (11.5-14.5); WHITE BLOOD COUNT 8.7 K/uL (4.8-10.8)
--- NOTE | 2018-03-02 15:59 | ED PDOC ---
HPI: SOB/CHF/COPD Time Seen by Provider: 03/02/18 15:02 Chief Complaint (Nursing): Shortness Of Breath Chief Complaint (Provider): Shortness Of Breath History Per: Patient History/Exam Limitations: no limitations Onset/Duration Of Symptoms: Hrs Exacerbating Factor(s): Exertion, Coughing Current Respiratory Medications: Albuterol Associated Symptoms: Productive Cough, Dizziness Recently: Seen In ED, Treated By A Physician Additional Complaint(s): 67yo male c/o SOB ongoing 2-3days, out of medications at home. Patient was sent to the ED by the clinic; patient had wheezing and was sent to the ED for further evaluation. Consistent with prior symptoms and normal presentation for COPD/Asthma. No fever, syncope or hemoptysis. Known to ED from prior visits, known cocaine abuse. Past Medical History Reviewed: Historical Data, Nursing Documentation, Vital Signs Vital Signs: Last Vital Signs Temp 98.3 F 03/02/18 14:34 Pulse 99 H 03/02/18 14:45 Resp 22 03/02/18 14:45 BP 143/92 H 03/02/18 14:45 Pulse Ox 98 03/02/18 14:45 - Medical History PMH: Anxiety, Asthma, Atrial Fibrillation, Back Problems, Bronchitis, CAD, Cardia Arrhythmia, CHF, COPD, CVA, Depression, Diabetes, Deep Vein Thrombosis, Gastritis, HTN, Hypercholesterolemia, Hyperlipidemia, Hyperthyroidism, Peripheral Edema, Pneumonia, Pulmonary Embolism Denies: HIV, Chronic Kidney Disease - Surgical History Surgical History: Hernia Repair - Family History Family History: States: [place], CAD, Diabetes, Hypertension (mother) - Social History Drugs: Cocaine - Immunization History Hx Tetanus Toxoid Vaccination: No Hx Influenza Vaccination: No Hx Pneumococcal Vaccination: No - Home Medications Home Medications: Ambulatory Orders Medication Instructions Recorded Digoxin 0.125 mg PO DAILY 30 Days #30 tab 08/26/17 Colchicine 0.6 mg PO DAILY 09/13/17 Losartan [Cozaar] 100 mg PO DAILY 09/13/17 diltiaZEM CD [Cardizem CD] 240 mg PO DAILY 11/09/17 GlipiZIDE [Glucotrol] 5 mg PO DAILY 01/03/18 Apixaban [Eliquis] 5 mg PO Q12 tab 01/04/18 Aspirin [Aspirin Chewable] 81 mg PO DAILY chew 01/04/18 Atorvastatin [Lipitor] 40 mg PO DAILY tab 01/04/18 Gabapentin [Neurontin] 300 mg PO Q12 cap 01/04/18 metFORMIN [glucOPHAGE] 500 mg PO BID tab 01/04/18 Albuterol HFA [Ventolin HFA 90 1 - 2 puff IH Q4H PRN #1 bottle 02/07/18 mcg/actuation (8 g)] predniSONE [predniSONE Tab] 60 mg PO DAILY #9 tab 02/28/18 - Allergies Allergies/Adverse Reactions: Allergies Allergy/AdvReac Type Severity Reaction Status Date / Time Penicillins Allergy RASH Verified 02/28/18 17:50 Review of Systems ROS Statement: Except As Marked, All Systems Reviewed And Found Negative Constitutional: Negative for: Fever Cardiovascular: Negative for: Chest Pain, Palpitations Respiratory: Positive for: Cough, Shortness of Breath, Pleuritic Pain, Wheezing. Negative for: Hemoptysis Gastrointestinal: Negative for: Abdominal Pain Genitourinary Male: Negative for: Dysuria Musculoskeletal: Negative for: Neck Pain, Back Pain Skin: Negative for: Rash Neurological: Negative for: Weakness, Numbness Psych: Negative for: Suicidal ideation Physical Exam - Reviewed Nursing Documentation Reviewed: Yes Vital Signs Reviewed: Yes - Physical Exam Appears: Positive for: Well (poor hygiene), Non-toxic, No Acute Distress Head Exam: Positive for: ATRAUMATIC, NORMAL INSPECTION, NORMOCEPHALIC Skin: Positive for: Normal Color, Warm, Dry Eye Exam: Positive for: EOMI, Normal appearance, PERRL ENT: Positive for: Normal ENT Inspection Neck: Positive for: Normal, Painless ROM Cardiovascular/Chest: Positive for: Regular Rate, Rhythm, Tachycardia (mild), Irregularly Irregular Respiratory: Positive for: Wheezing (bilateral ). Negative for: Normal Breath Sounds (Dyspnea) Gastrointestinal/Abdominal: Positive for: Normal Exam, Soft. Negative for: Tenderness Back: Positive for: Normal Inspection Extremity: Positive for: Normal ROM, Pedal Edema (chronic lower extremity 1+ nonpitting edema) Neurologic/Psych: Positive for: Alert, Oriented. Negative for: Motor/Sensory Deficits - Laboratory Results Result Diagrams: 03/02/18 15:15 03/02/18 15:15 - ECG O2 Sat by Pulse Oximetry: 98 (RA) Pulse Ox Interpretation: Normal Medical Decision Making Medical Decision Making: Time: 15:06 Initial Impression: wheezing Initial Plan: * EKG * BMP * CBC w/ diff * CXR * Duoneb 3 ml * Solumedrol 125 mg labs reviewed bronchodilators and duonebs given w some improvement but HR remains elevated with Afib/ RVR Admit Obs hospitalist for afib RVR and asthma/COPD Scribe Attestation: Documented by Luigi Miranda acting as a scribe for Carlos Berumen III, MD. Provider Scribe Attestation: All medical record entries made by the Scribe were at my direction and perso tati dictated by me. I have reviewed the chart and agree that the record accurately reflects my personal performance of the history, physical exam, medical decision making, and the department course for this patient. I have also personally directed, reviewed, and agree with the discharge instructions and disposition. Disposition - Clinical Impression Clinical Impression: COPD exacerbation, Atrial fibrillation, rapid - Patient ED Disposition Is Patient to be Admitted: Yes Counseled Patient/Family Regarding: Studies Performed, Diagnosis - Disposition Disposition Time: 19:00 Condition: FAIR Forms: [employer] (Romanian) - Pt Status Changed To: Hospital Disposition Of: Observation - POA Present On Arrival: None
--- NOTE | 2018-03-02 16:24 | RAD ---
Date of service: 03/02/2018 HISTORY: SOB COMPARISON: Chest radiograph dated 02/03/2018. FINDINGS: LUNGS: Questionable patchy opacities at both lung bases. PLEURA: No significant pleural effusion identified, no pneumothorax apparent. CARDIOVASCULAR: Aortic atherosclerotic calcifications. Cardiomediastinal silhouette stably enlarged. OSSEOUS STRUCTURES: Unchanged. VISUALIZED UPPER ABDOMEN: Normal. OTHER FINDINGS: None. IMPRESSION: Questionable patchy opacities at both lung bases may be related to infiltrates versus overlying soft tissue.
[2018-03-03] MEDS: Sodium Chloride 0.9% 1,000 ML IV SCH ×2 (00:30→11:01)
[2018-03-03] MEDS: Ipratropium 0.02% Inhal Soln (0.5 mg/2.5 ml) UD IH SCH ×7 (01:00→19:42)
[2018-03-03] MEDS: Levalbuterol 1.25 MG/3 ML Inhal Soln UD INH SCH ×5 (01:00→15:40)
--- NOTE | 2018-03-03 02:59 | CP.PCM.HP ---
<Joe Johnson - Last Filed: 03/03/18 02:24> History of Present Illness - History of Present Illness History of Present Illness: 67 y/o M with a PMHx of Asthma/COPD, AFibb, CHF, HTN, Gout, and cocaine abuse presented to ED complaining of SOB and wheezing. Pt reports that for the past 3 days his SOB has been aggravating and cough has become constant and productive with thick greenish sputum. Pt reports palpitations since a few hours ago after having an argument with a person. As per pt, he was supposed to have appointment today at the clinic but was unable to attend. Pt reports being adherent to all his medications. Pt denies fever, chills, nasal congestion, headache, dizziness, chest pain, N/V, abdominal pain, rash. [facility] -Allergies: Penicillin -Medications: Losartan 100mg PO daily, Digoxin 125mcg PO daily, Gabapentin 300mg BID, Eliquis 5mg PO daily, Aspirin 81 mg PO daily, Albuterol inhaler PRN, Ipratropium HFA PRN, Flovent 110mcg INH daily, Metformin 500mg BID, colchicine 0.6mg PO daily. -PMHx: COPD, Afib, CVA, HTN, HLD, PVD, NIDDM2, gout, depression, cocaine abuse -PSHx: bunionectomy, cardiac cath June 2016, I&D upper back 08/2017 -FHx: HTN and DM on both sides of family. -SHx: Hx of snorting cocaine, last use 4 yeras ago. Pt smokes 3-4 cigarettes a d ay, (50+pack year history), denies alcohol. At ED: --Vital signs: HR 106-high, BP 143/92. Afebrile, RR and O2 Sat% were unremarkable. --CBC with NO leukocytosis. BMP remarkable for BUN/creat 29/1.5-mildly elevated and elevated calcium. --EKG showed AFib with RVR. --CXR: Questionable patchy opacities at both lung bases may be related overlying soft tissue. --Duoneb 3mL x2, Cardizem 10mg, Solu-Medrol 125mg and Zofran were administered. Present on Admission - Present on Admission Any Indicators Present on Admission: No Review of Systems - Constitutional Constitutional: absent: Chills, Fever, Weight Loss, Weakness - EENT Nose/Mouth/Throat: absent: Nasal Congestion, Sore Throat, Neck Pain, Neck Mass - Cardiovascular Cardiovascular: absent: Chest Pain - Respiratory Respiratory: Cough, Dyspnea, Wheezing. absent: Hemoptysis - Gastrointestinal Gastrointestinal: absent: Abdominal Pain, Hematemesis, Nausea, Vomiting - Genitourinary Genitourinary: absent: Difficulty Urinating, Dysuria, Urinary Frequency Past Patient History - Infectious Disease Hx of Infectious Diseases: None - Tetanus Immunizations Tetanus Immunization: Unknown - Past Medical History & Family History Past Medical History?: Yes - Past Social History Smoking Status: Current Some Days Smoker - CARDIAC Hx Cardiac Disorders: Yes Hx Atrial Fibrillation: Yes Hx Cardia Arrhythmia: Yes Hx Congestive Heart Failure: Yes Hx Hypercholesterolemia: Yes Hx Hypertension: Yes Hx Peripheral Edema: Yes - PULMONARY Hx Respiratory Disorders: Yes Hx Asthma: Yes Hx Bronchitis: Yes Hx Chronic Obstructive Pulmonary Disease (COPD): Yes Hx Pneumonia: Yes Hx Pulmonary Embolism: Yes - NEUROLOGICAL Hx Neurological Disorder: Yes HX Cerebrovascular Accident: Yes (Cerebellar Infarct) - HEENT Hx HEENT Problems: No - RENAL Hx Chronic Kidney Disease: No - ENDOCRINE/METABOLIC Hx Endocrine Disorders: Yes Hx Diabetes Mellitus Type 2: Yes - HEMATOLOGICAL/ONCOLOGICAL Hx Blood Disorders: No Hx Human Immunodeficiency Virus (HIV): No - INTEGUMENTARY Hx Dermatological Problems: No - MUSCULOSKELETAL/RHEUMATOLOGICAL Hx Musculoskeletal Disorders: Yes Hx Back Pain: Yes Hx Falls: No Hx Gout: Yes - GASTROINTESTINAL Hx Gastrointestinal Disorders: Yes Hx Gastritis: Yes - GENITOURINARY/GYNECOLOGICAL Hx Genitourinary Disorders: No - PSYCHIATRIC Hx Psychophysiologic Disorder: Yes Hx Anxiety: Yes Hx Depression: Yes Hx Substance Use: No - SURGICAL HISTORY Hx Surgeries: Yes Hx Orthopedic Surgery: Yes (Bunionectomy) - ANESTHESIA Hx Anesthesia: Yes Hx Anesthesia Reactions: No Hx Malignant Hyperthermia: No Has any member of the family had a problem w/ anesthesia?: No Meds Allergies/Adverse Reactions: Allergies Allergy/AdvReac Type Severity Reaction Status Date / Time Penicillins Allergy RASH Verified 02/28/18 17:50 Physical Exam - Constitutional Appears: No Acute Distress - Head Exam Head Exam: ATRAUMATIC, NORMAL INSPECTION - Eye Exam Eye Exam: EOMI, Normal appearance - ENT Exam ENT Exam: Mucous Membranes Moist - Respiratory Exam Respiratory Exam: Rhonchi, Wheezes (diffuse bilaterally.), NORMAL BREATHING PATTERN. absent: Respiratory Distress - Cardiovascular Exam Cardiovascular Exam: Tachycardia, Irregular Rhythm, +S1, +S2 - GI/Abdominal Exam GI & Abdominal Exam: Soft. absent: Distended, Guarding, Rigid, Tenderness - Extremities Exam Extremities exam: Positive for: full ROM, pedal edema (+1). Negative for: calf tenderness, normal inspection (dry exfoliative dermatitis.) - Neurological Exam Neurological exam: Alert, Oriented x3 Results - Vital Signs Recent Vital Signs: Last Vital Signs Temp 98.3 F 03/03/18 01:02 Pulse 132 H 03/03/18 01:02 Resp 16 03/03/18 01:02 BP 143/87 03/03/18 01:02 Pulse Ox 95 03/03/18 01:02 - Labs Result Diagrams: 03/02/18 15:15 03/02/18 15:15 Labs: Laboratory Results - last 24 hr 03/02/18 03/02/18 15:15 15:15 WBC 8.7 RBC 4.34 L Hgb 11.6 L Hct 37.1 MCV 85.6 D MCH 26.8 L MCHC 31.3 L RDW 19.3 H Plt Count 176 MPV 9.9 Neut % (Auto) 72.7 Lymph % (Auto) 14.6 L Good[place] % (Auto) 10.2 H Eos % (Auto) 1.5 Baso % (Auto) 1.0 Neut # (Auto) 6.3 Lymph # (Auto) 1.3 Gooding # (Auto) 0.9 H Eos # (Auto) 0.1 Baso # (Auto) 0.1 Sodium 143 Potassium 4.2 Chloride 110 H Carbon Dioxide 26 Anion Gap 11 BUN 29 H Creatinine 1.5 Est GFR ( Amer) 57 Est GFR (Non-Af Amer) 47 Random Glucose 81 Calcium 11.0 H Assessment & Plan - Assessment and Plan (Free Text) Assessment: 67 y/o M with a PMHx of Asthma/COPD, AFibb, CHF, HTN, Gout, and cocaine abuse admitted for evaluation and management of Asthma/COPD exacerbation and AFib with RVR. PLAN: >Acute Asthma/COPD exacerbation --Acute on chronic --CXR: Questionable patchy opacities at both lung bases may be related overlying soft tissue. --Low suspicion for pneumonia as NO fever and NO leukocytosis --Xopenex Q4H EARL --Ipratropium Q4H EARL --Solu-Medrol 80mg Q6H. >A-Fib with RVR --Chronic. --EKG at ED showed AFib with RVR. --S/P IV Diltiazem 10mg. HR improved to 80-100s range. --CXR: Questionable patchy opacities at both lung bases may be related overlying soft tissue. --Echo on 09/2017: LVH with EF 60-65%. Mod-severe pulmonary HTN --Home meds resumed >NIDDM --Chronic, uncontrolled --Last HbA1c 10.6 (08/2017) --Home meds resumed --Insulin Sliding scale >HTN/HLD --Chronic --Home meds resumed >DVT proplyx --On Eliquis alerady as per AFib management. Case discussed with Dr Smith, hospitalist human capital consultant [employer] PGY-2. - Date & Time Date: 03/03/18 Time: 00:00 <Faisal Smith - Last Filed: 03/03/18 06:55> Results - Vital Signs Recent Vital Signs: Last Vital Signs Temp 98.0 F 03/03/18 05:18 Pulse 103 H 03/03/18 05:18 Resp 18 03/03/18 05:18 BP 154/90 H 03/03/18 05:18 Pulse Ox 98 03/03/18 05:18 - Labs Result Diagrams: 03/03/18 04:30 03/03/18 04:30 Labs: Laboratory Results - last 24 hr 03/02/18 03/02/18 03/03/18 15:15 15:15 04:30 WBC 8.7 8.5 RBC 4.34 L 4.38 L Hgb 11.6 L 11.9 L Hct 37.1 37.7 MCV 85.6 D 86.3 MCH 26.8 L 27.1 MCHC 31.3 L 31.4 L RDW 19.3 H 19.3 H Plt Count 176 173 MPV 9.9 Neut % (Auto) 72.7 Lymph % (Auto) 14.6 L Good[place] % (Auto) 10.2 H Eos % (Auto) 1.5 Baso % (Auto) 1.0 Neut # (Auto) 6.3 Lymph # (Auto) 1.3 Gooding # (Auto) 0.9 H Eos # (Auto) 0.1 Baso # (Auto) 0.1 Sodium 143 Potassium 4.2 Chloride 110 H Carbon Dioxide 26 Anion Gap 11 BUN 29 H Creatinine 1.5 Est GFR ( Amer) 57 Est GFR (Non-Af Amer) 47 POC Glucose (mg/dL) Random Glucose 81 Calcium 11.0 H 03/03/18 03/03/18 04:30 06:26 WBC RBC Hgb Hct MCV MCH MCHC RDW Plt Count MPV Neut % (Auto) Lymph % (Auto) Good[place] % (Auto) Eos % (Auto) Baso % (Auto) Neut # (Auto) Lymph # (Auto) Gooding # (Auto) Eos # (Auto) Baso # (Auto) Sodium 140 Potassium 4.8 Chloride 107 Carbon Dioxide 25 Anion Gap 13 BUN 26 H Creatinine 1.2 Est GFR ( Amer) > 60 Est GFR (Non-Af Amer) > 60 POC Glucose (mg/dL) 195 H Random Glucose 248 H Calcium 10.6 H Attending/Attestation - Attestation I have personally seen and examined this patient.: Yes I have fully participated in the care of the patient.: Yes I have reviewed all pertinent clinical information: Yes Notes (Text): 03/03/18 06:46 I saw, examined and discussed this patient with Dr Johnson. I agree with the assessment and plan This is a 67 years old male with hx of Asthma-COPD, DM II and A Fib, sent from the clinic with cough, SOB wheezes. He continued with SOB and ronchi with mild wheezes after multiple bronchodilator treatment in the ED along with Methylprednisolone. He also developed significant tachycardia of A Fib with RVR with the treatment Having to revceive IV Cardizem bolus. We will treat the Status Asthmaticus, with Methylprednisolone and Xoponex. The patient will be placed on a research engineer and will be given Bolus of Cardizem if Tachycardia persist with the Bronchodilator. restart his long acting Cardizem and other home medication for his Diabetes and Hypertension. Faisal Smith MD
[2018-03-03] MEDS ORDERED: Glucagon Recombinant 1 mg Inj IM PRN (03:14)
[2018-03-03] MEDS ORDERED: Dextrose 50% SYRINGE Inj (50 ml) IV PRN (03:14)
[2018-03-03] MEDS ORDERED: methylPREDNISolone 80 MG in Sodium Chloride 0.9% 50 ML IVPB SCH (04:00)
[2018-03-03 05:38] LABS: HEMOGLOBIN 11.9 g/dL (12.0-18.0); MEAN CELL VOLUME 86.3 fl (80.0-94.0); MEAN CORPUSCULAR HEMOGLOBIN 27.1 pg (27.0-31.0); MEAN CORPUSCULAR HGB CONC 31.4 g/dL (33.0-37.0); RBC 4.38 Mil/uL (4.40-5.90); RED CELL DISTRIBUTION WIDTH 19.3 % (11.5-14.5); WHITE BLOOD COUNT 8.5 K/uL (4.8-10.8)
[2018-03-03] MEDS: Albuterol-Ipratrop 3 mg / 0.5 (3 ml) UD INH STA (05:50)
[2018-03-03 05:55] LABS: BLOOD UREA NITROGEN 26 mg/dl (9-20); CALCIUM 10.6 mg/dL (8.4-10.2); GFR NON-AFRICAN AMERICAN > 60
--- NOTE | 2018-03-03 07:24 | CARD ---
APPROVED REPORT Date of service: 03/02/2018 EKG Measurement Heart [id number] <Conclusion> Atrial fibrillation with rapid ventricular response Nonspecific ST and T wave abnormality Abnormal ECG
[2018-03-03] MEDS: Insulin Lispro (humaLOG) 100 Units/ml Inj SC SCH ×4 (08:02→23:15)
[2018-03-03] MEDS ORDERED: Enoxaparin 40 mg Syringe SC SCH (09:00)
[2018-03-03] MEDS ORDERED: Digoxin 125 mcg (0.125 mg) Tab PO SCH (09:00)
--- NOTE | 2018-03-03 09:04 | CP.PCM.PN ---
Subjective - Date & Time of Evaluation Date of Evaluation: 03/03/18 Time of Evaluation: 08:00 - Subjective Subjective: Pt seen and evaluated at the bedside this morning. Reports cough and sob, not much improved since yesterday. Has difficulty carrying a conversation due to his breathing- can speak in full sentences with pauses. Pt was actively getting a breathing treatment at the moment. He denied any chest pain or productive cough. States he ran out of medication. Objective - Vital Signs/Intake and Output Vital Signs (last 24 hours): Temp Pulse Resp BP Pulse Ox 97.8 F 106 H 18 167/93 H 97 03/03/18 08:12 03/03/18 08:12 03/03/18 08:12 03/03/18 08:12 03/03/18 08:12 - Medications Medications: Current Medications Apixaban (Eliquis) 5 mg PO Q12 [facility]; Protocol Aspirin (Aspirin Chewable) 81 mg PO DAILY [facility] Atorvastatin Calcium (Lipitor) 40 mg PO DAILY [facility] Dextrose (Dextrose 50% Inj) 0 ml IV STAT PRN; Protocol PRN Reason: Hypoglycemia Protocol Dextrose (Glutose 15) 0 gm PO ONCE PRN; Protocol PRN Reason: Hypoglycemia Protocol Digoxin (Digoxin) 0.125 mg PO DAILY [facility] Diltiazem HCl (Cardizem Cd) 240 mg PO DAILY [facility] Gabapentin (Neurontin) 300 mg PO Q12 [facility] Glipizide (Glucotrol) 5 mg PO DAILY [facility] Glucagon (Glucagen Diagnostic Kit) 0 mg IM STAT PRN; Protocol PRN Reason: Hypoglycemia Protocol Sodium Chloride (Sodium Chloride 0.9%) 1,000 mls @ 100 mls/hr IV .Q10H [facility] Stop: 03/03/18 23:41 Last Admin: 03/03/18 00:30 Dose: 100 mls/hr Levofloxacin/Dextrose (Levaquin 500mg) 500 mg in 100 mls @ 100 mls/hr IVPB DAILY [facility]; Protocol Insulin Human Lispro (Humalog) 0 units SC ACCU-CHECK [facility]; Protocol Ipratropium [place] (Atrovent) 0.5 mg IH RQ4 [facility] Last Admin: 03/03/18 08:30 Dose: 0.5 mg Lactic Acid (Lac-Hydrin 12% Lotion (225 G)) 1 applic TOP TID [facility] Levalbuterol HCl (Xopenex) 1.25 mg INH RQ4 [facility] Last Admin: 03/03/18 08:30 Dose: 1.25 mg Losartan Potassium (Cozaar) 100 mg PO DAILY [facility] Metformin HCl (Glucophage) 500 mg PO BID [facility] Methylprednisolone (Solu-Medrol) 80 mg IVP Q6 [facility] Last Admin: 03/03/18 03:09 Dose: 80 mg - Labs Labs: 03/03/18 04:30 03/03/18 04:30 - Constitutional Appears: In Acute Distress (mild respiratory distress) - Eye Exam Eye Exam: Normal appearance - ENT Exam ENT Exam: Mucous Membranes Moist - Neck Exam Neck Exam: Lymphadenopathy - Respiratory Exam Respiratory Exam: Accessory Muscle Use (tachypnic, mild use of accessory muscles), Clear to Ausculation Bilateral, Prolonged Expiratory Phase, Rhonchi. absent: Rales, Wheezes - Cardiovascular Exam Cardiovascular Exam: Tachycardia, Irregular Rhythm, +S1, +S2. absent: Murmur - GI/Abdominal Exam GI & Abdominal Exam: Soft. absent: Tenderness - Extremities Exam Extremities Exam: Pedal Edema (BL stasis edema non pitting up to knees w/ skin changes, symmetrical no calf tenderness) - Neurological Exam Neurological Exam: Alert, Awake - Psychiatric Exam Psychiatric exam: Normal Affect - Skin Skin Exam: Dry Assessment and Plan - Assessment and Plan (Free Text) Assessment: 67 y/o M with a PMHx of Asthma/COPD, AFibb, CHF, HTN, Active Cocaine abuse, Gout, and cocaine abuse admitted for evaluation and management of Asthma/COPD exacerbation and AFib with RVR. PLAN: >Acute Asthma/COPD exacerbation --Acute on chronic; may have been triggered by bacterial infection - EKG no ischemic changes, Afibb w/ RVR in ED - Troponin x1 negative, f/u trending --CXR: Questionable patchy opacities at both lung bases may be related overlying soft tissue. --Will start Levofloxacin for CAP coverage --Xopenex Q6H [facility] --Ipratropium Q4H [facility] --Solu-Medrol 80mg Q6H. --Robitussin ordered for cough and mucolytic >A-Fib with RVR --Chronic, better rate controlled but still tachycardic --EKG at ED showed AFib with RVR. --S/P IV Diltiazem 10mg. HR improved to 80-100s range. --Continue with home Cardizem --Given Digoxin 0.5mg as pt was noted to be tachycardic in 120's --Echo on 09/2017: LVH with EF 60-65%. Mod-severe pulmonary HTN --Will avoid B-annelise given active cocaine use. --Home meds resumed >NIDDM --Chronic, uncontrolled --Last HbA1c 10.6 (08/2017) --Home meds resumed --Insulin Sliding scale >HTN/HLD --Chronic --Home meds resumed >Stasis Dermatitis --Chronic --N Lac Hydrin --Compression stockings --No concerning features for DVT >Hypercalcemia --Chronic, 10.6 --Asymptomatic --Has hx of pitruitary adenoma, benign appearing on US --Will check TSH >DVT proplyx --On Eliquis already as per AFib management.
[2018-03-03] MEDS: diltiaZEM 240 mg/24 Hours CD Cap PO SCH (09:38)
[2018-03-03] MEDS: guaiFENesin DM 200 mg-20 mg/10 ml UD PO SCH ×3 (10:43→21:48)
[2018-03-03 10:47] VITALS: PULSE 110
[2018-03-03] MEDS: levoFLOXacin 500 mg in D5W 500 MG/100 ML BAG IVPB SCH (11:00)
[2018-03-03] MEDS ORDERED: Acetylcysteine 10% 4 ML IH SCH (14:00)
[2018-03-03] MEDS ORDERED: Digoxin 0.05 mg/mL Elixir 5mL PO ONE (14:30)
[2018-03-03] MEDS ORDERED: Digoxin 500 mcg/2ml (0.5 mg/2ml) Inj IVP ONE (15:18)
[2018-03-03] MEDS ORDERED: Digoxin 250 mcg (0.25 mg) Tab PO ONE (15:30)
--- NOTE | 2018-03-03 17:37 | CP.PCM.DIS ---
Provider - Provider Date of Admission: 03/02/18 21:57 Attending physician: Faisal Smith Time Spent in preparation of Discharge (in minutes): 35 Diagnosis - Discharge Diagnosis (1) Atrial fibrillation, rapid Status: Resolved (2) COPD exacerbation Status: Acute (3) Pneumonia Status: Acute Hospital Course - Lab Results Lab Results: Most Recent Lab Values WBC 8.5 K/uL (4.8-10.8) 03/03/18 04:30 RBC 4.38 Mil/uL (4.40-5.90) L 03/03/18 04:30 Hgb 11.9 g/dL (12.0-18.0) L 03/03/18 04:30 Hct 37.7 % (35.0-51.0) 03/03/18 04:30 MCV 86.3 fl (80.0-94.0) 03/03/18 04:30 MCH 27.1 pg (27.0-31.0) 03/03/18 04:30 MCHC 31.4 g/dL (33.0-37.0) L 03/03/18 04:30 RDW 19.3 % (11.5-14.5) H 03/03/18 04:30 Plt Count 173 K/uL (130-400) 03/03/18 04:30 MPV 9.9 fl (7.2-11.7) 03/02/18 15:15 Neut % (Auto) 72.7 % (50.0-75.0) 03/02/18 15:15 Lymph % (Auto) 14.6 % (20.0-40.0) L 03/02/18 15:15 [place] % (Auto) 10.2 % (0.0-10.0) H 03/02/18 15:15 Eos % (Auto) 1.5 % (0.0-4.0) 03/02/18 15:15 Baso % (Auto) 1.0 % (0.0-2.0) 03/02/18 15:15 Neut # (Auto) 6.3 K/uL (1.8-7.0) 03/02/18 15:15 Lymph # (Auto) 1.3 K/uL (1.0-4.3) 03/02/18 15:15 [place] # (Auto) 0.9 K/uL (0.0-0.8) H 03/02/18 15:15 Eos # (Auto) 0.1 K/uL (0.0-0.7) 03/02/18 15:15 Baso # (Auto) 0.1 K/uL (0.0-0.2) 03/02/18 15:15 Sodium 140 mmol/l (132-148) 03/03/18 04:30 Potassium 4.8 MMOL/L (3.6-5.0) 03/03/18 04:30 Chloride 107 mmol/L (98-107) 03/03/18 04:30 Carbon Dioxide 25 mmol/L (22-30) 03/03/18 04:30 Anion Gap 13 (10-20) 03/03/18 04:30 BUN 26 mg/dl (9-20) H 03/03/18 04:30 Creatinine 1.2 mg/dl (0.8-1.5) 03/03/18 04:30 Est GFR ( Amer) > 60 03/03/18 04:30 Est GFR (Non-Af Amer) > 60 03/03/18 04:30 POC Glucose (mg/dL) 262 mg/dL (65-110) H 03/03/18 10:55 Random Glucose 248 mg/dL (75-110) H 03/03/18 04:30 Calcium 10.6 mg/dL (8.4-10.2) H 03/03/18 04:30 TSH 3rd Generation 0.45 mIU/ML (0.46-4.68) L 03/03/18 07:56 - Hospital Course Hospital Course: 67 y/o M with a PMHx of Asthma/COPD, AFibb, CHF, HTN, Active Cocaine abuse, Gout, and cocaine abuse admitted for evaluation and management of Asthma/COPD exacerbation and AFib with RVR. He was treated with scheduled bronchodilator treatments, inhaled and IV steroids, cough medication, and was given rate controlling medications. He was evaluated today and his respiratory status improved significantly and his HR was controlled. He was discharged on Levoflocaxin (for 7 day total) and advised to finish 5 day prednisone taper that he had from prior ER visit 2 days ago. He was cleared for discharge with f/u appt in 1 week in clinic. PLAN: >Acute Asthma/COPD exacerbation --Acute on chronic; may have been triggered by bacterial infection - EKG no ischemic changes, Afibb w/ RVR in ED - Troponin x1 negative, f/u trending --Xopenex Q6H [facility] --Ipratropium Q4H [facility] --Solu-Medrol 80mg Q6H. --Robitussin ordered for cough and mucolytic --O2 sat stable -Improving >A-Fib with RVR --Chronic, better rate controlled but still tachycardic --EKG at ED showed AFib with RVR. --S/P IV Diltiazem 10mg. HR improved to 80-100s range. --Continue with home Cardizem --Given Digoxin 0.5mg as pt was noted to be tachycardic in 120's --Echo on 09/2017: LVH with EF 60-65%. Mod-severe pulmonary HTN --Will avoid B-annelise given active cocaine use. --Home meds resumed --Resolved >Bilateral Pneumonia --no fever, white count --CXR: Questionable patchy opacities at both lung bases may be related overlying soft tissue. --Started Levofloxacin for CAP coverage. Will discharge on total of [address] Frazier Discharge Exam - Head Exam Head Exam: ATRAUMATIC, NORMAL INSPECTION Discharge Plan - Discharge Medications Prescriptions: levoFLOXacin [Levaquin] 750 mg PO DAILY 6 Days tab - Follow Up Plan Condition: FAIR Disposition: HOME/ ROUTINE Instructions: Atrial Fibrillation (DC), Exacerbation of COPD (DC) Referrals: Maricruz Solis MD [Family Provider] -
[2018-03-04] MEDS: Ipratropium 0.02% Inhal Soln (0.5 mg/2.5 ml) UD IH SCH ×4 (00:35→11:13)
[2018-03-04] MEDS: Levalbuterol 1.25 MG/3 ML Inhal Soln UD INH SCH ×2 (00:36→07:42)
[2018-03-04] MEDS: guaiFENesin DM 200 mg-20 mg/10 ml UD PO SCH ×2 (04:10→08:59)
[2018-03-04] MEDS: Insulin Lispro (humaLOG) 100 Units/ml Inj SC SCH (06:30)
[2018-03-04 08:24] VITALS: RESP 18; TEMP 97.7
--- NOTE | 2018-03-04 08:47 | CP.PCM.PN ---
Subjective - Date & Time of Evaluation Date of Evaluation: 03/04/18 Time of Evaluation: 08:00 - Subjective Subjective: Pt seen and examined this morning. BP noted to be elevated, started on low dose Norvasc. Pt reports cough and dyspnea that is significantly improved since yesterday.Has been ambulating to and from bathroom. Denies CP. Objective - Vital Signs/Intake and Output Vital Signs (last 24 hours): Temp Pulse Resp BP Pulse Ox 97.7 F 90 18 168/79 H 98 03/04/18 08:23 03/04/18 08:23 03/04/18 08:23 03/04/18 08:23 03/04/18 08:23 - Medications Medications: Current Medications Acetylcysteine (Mucomyst 10% 4ml) 6 ml IH RTID [facility] Last Admin: 03/03/18 11:47 Dose: 4 ml Amlodipine Besylate (Norvasc) 5 mg PO DAILY [facility] Apixaban (Eliquis) 5 mg PO Q12 [facility]; Protocol Last Admin: 03/03/18 22:00 Dose: 5 mg Aspirin (Aspirin Chewable) 81 mg PO DAILY [facility] Last Admin: 03/03/18 10:40 Dose: 81 mg Atorvastatin Calcium (Lipitor) 40 mg PO DAILY [facility] Last Admin: 03/03/18 10:41 Dose: 40 mg Dextrose (Dextrose 50% Inj) 0 ml IV STAT PRN; Protocol PRN Reason: Hypoglycemia Protocol Dextrose (Glutose 15) 0 gm PO ONCE PRN; Protocol PRN Reason: Hypoglycemia Protocol Diltiazem HCl (Cardizem Cd) 240 mg PO DAILY [facility] Last Admin: 03/03/18 09:38 Dose: 240 mg Gabapentin (Neurontin) 300 mg PO Q12 [facility] Last Admin: 03/03/18 21:48 Dose: 300 mg Glipizide (Glucotrol) 5 mg PO DAILY [facility] Last Admin: 03/03/18 09:05 Dose: 5 mg Glucagon (Glucagen Diagnostic Kit) 0 mg IM STAT PRN; Protocol PRN Reason: Hypoglycemia Protocol Guaifenesin/Dextromethorphan (Robitussin Dm) 10 ml PO Q6 [facility] Last Admin: 03/04/18 04:10 Dose: 10 ml Levofloxacin/Dextrose (Levaquin 500mg) 500 mg in 100 mls @ 100 mls/hr IVPB DAILY [facility]; Protocol Last Admin: 03/03/18 11:00 Dose: 100 mls/hr Insulin Human Lispro (Humalog) 0 units SC ACCU-CHECK [facility]; Protocol Last Admin: 03/04/18 06:30 Dose: Not Given Ipratropium [place] (Atrovent) 0.5 mg IH RQ4 [facility] Last Admin: 03/04/18 07:42 Dose: 0.5 mg Lactic Acid (Lac-Hydrin 12% Lotion (225 G)) 1 applic TOP TID [facility] Last Admin: 03/03/18 18:35 Dose: 1 applic Levalbuterol HCl (Xopenex) 1.25 mg INH RQ8 [facility] Last Admin: 03/04/18 07:42 Dose: 1.25 mg Losartan Potassium (Cozaar) 100 mg PO DAILY [facility] Last Admin: 03/03/18 10:40 Dose: 100 mg Metformin HCl (Glucophage) 500 mg PO BID [facility] Last Admin: 03/03/18 17:35 Dose: 500 mg Methylprednisolone (Solu-Medrol) 80 mg IVP Q6 [facility] Last Admin: 03/04/18 04:10 Dose: 80 mg - Labs Labs: 03/03/18 04:30 03/03/18 04:30 - Constitutional Appears: No Acute Distress - Head Exam Head Exam: NORMAL INSPECTION - Eye Exam Eye Exam: Normal appearance - ENT Exam ENT Exam: Mucous Membranes Moist - Respiratory Exam Respiratory Exam: Clear to Ausculation Bilateral, Rales. absent: Wheezes - Cardiovascular Exam Cardiovascular Exam: REGULAR RHYTHM, +S1, +S2 - GI/Abdominal Exam GI & Abdominal Exam: Soft, Normal Bowel Sounds. absent: Tenderness - Extremities Exam Extremities Exam: Normal Inspection - Neurological Exam Neurological Exam: Normal Gait - Psychiatric Exam Psychiatric exam: Normal Affect - Skin Skin Exam: Normal Color Assessment and Plan (1) Atrial fibrillation, rapid Status: Resolved (2) COPD exacerbation Status: Acute (3) Pneumonia Status: Acute - Assessment and Plan (Free Text) Assessment: 67 y/o M with a PMHx of Asthma/COPD, AFibb, CHF, HTN, Active Cocaine abuse, Gout, and cocaine abuse admitted for evaluation and management of Asthma/COPD exacerbation and AFib with RVR. He was treated with scheduled bronchodilator treatments, inhaled and IV steroids, cough medication, and was given rate controlling medications. He was evaluated today and his respiratory status improved significantly and his HR was controlled. He was discharged on Levoflocaxin (for 7 day total) and advised to finish 5 day prednisone taper that he had from prior ER visit 2 days ago. He was cleared for discharge with f/u appt in 1 week in clinic. PLAN: >Acute Asthma/COPD exacerbation --Acute on chronic; may have been triggered by bacterial infection - EKG no ischemic changes, Afibb w/ RVR in ED - Troponin x1 negative, f/u trending --Xopenex Q6H [facility] --Ipratropium Q4H [facility] --Solu-Medrol 80mg Q6H. --Robitussin ordered for cough and mucolytic --O2 sat stable -Improving >A-Fib with RVR --Chronic, better rate controlled but still tachycardic --EKG at ED showed AFib with RVR. --S/P IV Diltiazem 10mg. HR improved to 80-100s range. --Continue with home Cardizem --Given Digoxin 0.5mg as pt was noted to be tachycardic in 120's --Echo on 09/2017: LVH with EF 60-65%. Mod-severe pulmonary HTN --Will avoid B-annelise given active cocaine use. --Home meds resumed --Resolved >Bilateral Pneumonia --no fever, white count --CXR: Questionable patchy opacities at both lung bases may be related overlying soft tissue. --Started Levofloxacin for CAP coverage. Will discharge on total of 7 days >HTN -Take Losartan and Cardizem but BP noted to be elevated >150's -Pt started on low dose Norvasc -Given appt in clinic in 1 week and can f/u BP there as well Discussed with Dr. Frazier
[2018-03-04] MEDS: levoFLOXacin 500 mg in D5W 500 MG/100 ML BAG IVPB SCH (08:57)
[2018-03-04] MEDS: diltiaZEM 240 mg/24 Hours CD Cap PO SCH (09:01)
[2018-03-04 12:54] VITALS: BP 176/97; PULSE 84; O2SAT 96
== END 2018-03-04 14:10 | disposition home or self-care (01) ==
LOC: H.ER 14:32 → H.ERHOLD 21:57 → H.TEL 23:44
PROVIDERS: ADMIT Internal Medicine; ATTEND Internal Medicine
DX: J44.1 Chronic obstructive pulmonary disease with (acute) exacerbation (principal); J18.9 Pneumonia, unspecified organism; J44.0 Chronic obstructive pulmonary disease with (acute) lower respiratory infection; Z79.01 Long term (current) use of anticoagulants; Z79.82 Long term (current) use of aspirin; Z82.49 Family history of ischemic heart disease and other diseases of the circulatory system; Z86.711 Personal history of pulmonary embolism; Z86.73 Personal history of transient ischemic attack (TIA), and cerebral infarction without residual deficits; Z87.01 Personal history of pneumonia (recurrent); E05.90 Thyrotoxicosis, unspecified without thyrotoxic crisis or storm; F14.10 Cocaine abuse, uncomplicated; F32.9 Major depressive disorder, single episode, unspecified; F41.9 Anxiety disorder, unspecified; J45.901 Unspecified asthma with (acute) exacerbation; K29.70 Gastritis, unspecified, without bleeding; M10.9 Gout, unspecified; Z79.84 Long term (current) use of oral hypoglycemic drugs; Z79.899 Other long term (current) drug therapy; M54.9 Dorsalgia, unspecified; R00.2 Palpitations; E78.00 Pure hypercholesterolemia, unspecified; E11.9 Type 2 diabetes mellitus without complications; E78.5 Hyperlipidemia, unspecified; F17.210 Nicotine dependence, cigarettes, uncomplicated; I11.0 Hypertensive heart disease with heart failure; I25.10 Atherosclerotic heart disease of native coronary artery without angina pectoris; I48.91 Unspecified atrial fibrillation; I50.9 Heart failure, unspecified
CPT/HCPCS: 36415; 71045; 80048; 82948; 84443; 85025; 85027; 93005; 94640; 96374; 96375; 96376; 99285; G0378; J1160; J2405; J2930; J7030

== ENCOUNTER 2018-04-24 21:33 | Emergency (ER) | payer MEDICAID ==
[2018-04-24 21:33] VITALS: PULSE 82
[2018-04-24 21:48] VITALS: BMI 34.9
--- NOTE | 2018-04-24 22:15 | ED PDOC ---
HPI: SOB/CHF/COPD Time Seen by Provider: 04/24/18 22:00 Chief Complaint (Nursing): Respiratory Distress Chief Complaint (Provider): shortness of breath History Per: Patient History/Exam Limitations: no limitations Onset/Duration Of Symptoms: Hrs (2) Current Symptoms Are (Timing): Still Present Additional Complaint(s): 67 y/o male brought in by EMS for evaluation of shortness of breath x 2 hours. Patient states he used his inhaler without relief. Denies fever, chest pain, palpitations, congestion, palpitations, leg pain/swelling. Past Medical History Reviewed: Historical Data, Nursing Documentation, Vital Signs Vital Signs: Last Vital Signs Temp 98.4 F 04/24/18 21:47 Pulse 91 H 04/24/18 21:47 Resp 18 04/24/18 21:47 BP 166/85 H 04/24/18 21:47 Pulse Ox 100 04/24/18 21:47 - Medical History PMH: Anxiety, Arthritis, Asthma, Atrial Fibrillation, Back Problems, Bronchitis, CAD, Cardia Arrhythmia, CHF, COPD, CVA, Depression, Diabetes, Deep Vein Thrombosis, Gastritis, HTN, Hypercholesterolemia, Hyperlipidemia, Hyperthyroidism, Peripheral Edema, Pneumonia, Pulmonary Embolism Denies: Alzheimer's Disease, Anemia, Bipolar Disorder, Crohn's Disease, Dementia, Diverticulitis, Emphysema, Fractures, Gall Bladder Disease, HIV, Hypothyroidism, Kidney Stones, Migraine, Mitral Valve Prolapse, Multiple Sclerosis, Osteoporosis, Pancreatitis, Paranoia, Parkinson's Disease, Post Traumatic Stress Disorder, Chronic Kidney Disease, Rheumatoid Arthritis, Schizophrenia, Seizures, Sickle Cell Disease, Sexually Transmitted Disease, Sleep Apnea, TIA - Surgical History Surgical History: Hernia Repair Denies: Appendectomy, CABG, Carotid Endarterectomy, Cholecystectomy, Coronary Stent, Pacemaker, Tonsillectomy - Family History Family History: States: [place], CAD, Diabetes, Hypertension (mother) - Immunization History Hx Tetanus Toxoid Vaccination: No Hx Influenza Vaccination: No Hx Pneumococcal Vaccination: No - Home Medications Home Medications: Ambulatory Orders Medication Instructions Recorded Aclidinium [place] [Tudorza 1 puff IH DAILY #1 [email or web address] 03/24/18 Pressair] Albuterol Sulfate [Ventolin Hfa] 2 puff IH Q6 PRN #1 [email or web address] 04/08/18 Apixaban [Eliquis] 5 mg PO Q12 tab 04/08/18 Aspirin [Aspirin Chewable] 81 mg PO DAILY #30 chew 04/08/18 Atorvastatin [Lipitor] 40 mg PO DAILY #30 tab 04/08/18 Colchicine [Mitigare] 0.6 mg PO DAILY #30 capsule 04/08/18 Digoxin [Digitek] 125 mcg PO DAILY #30 tablet 04/08/18 Gabapentin [Neurontin] 300 mg PO Q12 #60 cap 04/08/18 Losartan [Cozaar] 100 mg PO DAILY #30 tab 04/08/18 amLODIPine [Norvasc] 10 mg PO DAILY #30 tab 04/08/18 diltiaZEM CD [Cardizem CD] 300 mg PO DAILY #30 cap 04/08/18 metFORMIN [glucOPHAGE] 500 mg PO BIDWM #60 tab 04/08/18 methylPREDNISolone [Medrol] 4 mg PO DAILY #2 tab 04/08/18 methylPREDNISolone [Medrol] 8 mg PO DAILY #2 tab 04/08/18 methylPREDNISolone [Medrol] 12 mg PO DAILY #2 tab 04/08/18 predniSONE [Prednisone] 60 mg PO DAILY #12 tab 04/25/18 - Allergies Allergies/Adverse Reactions: Allergies Allergy/AdvReac Type Severity Reaction Status Date / Time Penicillins Allergy RASH Verified 04/21/18 19:24 Review of Systems ROS Statement: Except As Marked, All Systems Reviewed And Found Negative Respiratory: Positive for: Shortness of Breath Physical Exam - Reviewed Nursing Documentation Reviewed: Yes Vital Signs Reviewed: Yes - Physical Exam Appears: Positive for: Well, Non-toxic, No Acute Distress Head Exam: Positive for: ATRAUMATIC, NORMAL INSPECTION, NORMOCEPHALIC Skin: Positive for: Normal Color Eye Exam: Positive for: Normal appearance ENT: Positive for: Normal ENT Inspection Cardiovascular/Chest: Positive for: Regular Rate, Rhythm Respiratory: Positive for: Rhonchi, Wheezing Gastrointestinal/Abdominal: Positive for: Normal Exam Back: Positive for: Normal Inspection Extremity: Positive for: Normal ROM Neurological/Psych: Positive for: Awake, Alert, Oriented (x3) - ECG ECG: Positive for: Viewed By Me (reviewed by ED attending) ECG Rhythm: Positive for: Atrial Fibrillation (111bpm) O2 Sat by Pulse Oximetry: 100 - Progress ED Course And Treament: -duonebs -Solumedrol IM -ekg Patient sleeping throughout ED visit; upon awakening states he feels better. Lungs CTA Patient educated on findings, discharged with rx PRednisone Advised to follow up PMD within 2-3 days Return precautions given Disposition - Clinical Impression Clinical Impression: COPD (chronic obstructive pulmonary disease) - Patient ED Disposition Is Patient to be Admitted: No Counseled Patient/Family Regarding: Studies Performed, Diagnosis, Need For Followup - Disposition Disposition: Routine/Home Disposition Time: 03:00 Condition: IMPROVED Prescriptions: predniSONE [Prednisone] 60 mg PO DAILY #12 tab Instructions: Chronic Obstructive Pulmonary Disease (COPD), Including Emphysema
[2018-04-24] MEDS: Albuterol-Ipratrop 3 mg / 0.5 (3 ml) UD IH STA ×2 (22:57)
[2018-04-24] MEDS ORDERED: Albuterol-Ipratrop 3 mg / 0.5 (3 ml) UD ONE (22:57)
[2018-04-25 02:28] VITALS: RESP 20
[2018-04-25 03:22] VITALS: BP 138/79; PULSE 88; TEMP 98.5; O2SAT 97
--- NOTE | 2018-04-25 08:28 | CARD ---
APPROVED REPORT Date of service: 04/24/2018 EKG Measurement Heart [id number] <Conclusion> Atrial fibrillation with rapid ventricular response Abnormal ECG
== END 2018-04-25 03:47 | disposition home or self-care (01) ==
LOC: H.ER 21:33
DX: J44.9 Chronic obstructive pulmonary disease, unspecified (principal); E11.9 Type 2 diabetes mellitus without complications; E78.00 Pure hypercholesterolemia, unspecified; I11.0 Hypertensive heart disease with heart failure; I25.10 Atherosclerotic heart disease of native coronary artery without angina pectoris; Z79.01 Long term (current) use of anticoagulants; Z79.84 Long term (current) use of oral hypoglycemic drugs; Z86.718 Personal history of other venous thrombosis and embolism; Z86.73 Personal history of transient ischemic attack (TIA), and cerebral infarction without residual deficits; Z88.0 Allergy status to penicillin; I48.91 Unspecified atrial fibrillation
CPT/HCPCS: 93005; 94640; 96372; 99284; J2930

== ENCOUNTER 2018-04-25 16:42 | Observation (INO) | payer MEDICAID ==
[2018-04-25 16:43] VITALS: BMI 34.9
--- NOTE | 2018-04-25 17:28 | ED PDOC ---
HPI: SOB/CHF/COPD Time Seen by Provider: 04/25/18 16:55 Chief Complaint (Nursing): Shortness Of Breath Chief Complaint (Provider): Shortness Of Breath History Per: Patient, EMS History/Exam Limitations: no limitations Onset/Duration Of Symptoms: Mins Current Symptoms Are (Timing): Better Additional Complaint(s): Patient is a 67 y/o male with a significant PMHx of CHF, COPD, asthma, and atrial fibrillation who presents to the ED for evaluation of shortness breath said to be associated with an asthma attack prior to arrival. He is known well to the ER for frequent visits for noncompliance with outpatient treatment for his chornic conditions and for homelessness. Patient was seen in the ED yesterday for similar issues. Patient was found by EMS in rapid atrial fibr illation and was given 25 mg of Cardizem and a nebulizer treatment. Patient denies chest pressure and cough. PCP: [facility] Past Medical History Reviewed: Historical Data, Nursing Documentation, Vital Signs Vital Signs: Last Vital Signs Temp 98.0 F 04/25/18 16:48 Pulse 90 04/25/18 16:48 Resp 18 04/25/18 16:48 BP 172/99 H 04/25/18 16:48 Pulse Ox 97 04/25/18 16:48 - Medical History PMH: Anxiety, Arthritis, Asthma, Atrial Fibrillation, Back Problems, Bronchitis, CAD, Cardia Arrhythmia, CHF, COPD, CVA, Depression, Diabetes, Deep Vein T hrombosis, Gastritis, HTN, Hypercholesterolemia, Hyperlipidemia, Hyperthyroidism, Peripheral Edema, Pneumonia, Pulmonary Embolism Denies: Alzheimer's Disease, Anemia, Bipolar Disorder, Crohn's Disease, Dementia, Diverticulitis, Emphysema, Fractures, Gall Bladder Disease, HIV, Hypothyroidism, Kidney Stones, Migraine, Mitral Valve Prolapse, Multiple Sclerosis, Osteoporosis, Pancreatitis, Paranoia, Parkinson's Disease, Post Traumatic Stress Disorder, Chronic Kidney Disease, Rheumatoid Arthritis, S chizophrenia, Seizures, Sickle Cell Disease, Sexually Transmitted Disease, Sleep Apnea, TIA Other PMH: Chronic leg edema - Surgical History Surgical History: Hernia Repair Denies: Appendectomy, CABG, Carotid Endarterectomy, Cholecystectomy, Coronary Stent, Pacemaker, Tonsillectomy - Family History Family History: States: [place], CAD, Diabetes, Hypertension (mother) - Living Arrangements Living Arrangements: Other (Homeless) - Immunization History Hx Tetanus Toxoid Vaccination: No Hx Influenza Vaccination: No Hx Pneumococcal Vaccination: No - Home Medications Home Medications: Ambulatory Orders Medication Instructions Recorded Aclidinium [place] [Tudorza 1 puff IH DAILY #1 aer.pow.ba 03/24/18 Pressair] Apixaban [Eliquis] 5 mg PO Q12 tab 04/08/18 Aspirin [Aspirin Chewable] 81 mg PO DAILY #30 chew 04/08/18 Atorvastatin [Lipitor] 40 mg PO DAILY #30 tab 04/08/18 Colchicine [Mitigare] 0.6 mg PO DAILY #30 capsule 04/08/18 Digoxin [Digitek] 125 mcg PO DAILY #30 tablet 04/08/18 Gabapentin [Neurontin] 300 mg PO Q12 #60 cap 04/08/18 Losartan [Cozaar] 100 mg PO DAILY #30 tab 04/08/18 amLODIPine [Norvasc] 10 mg PO DAILY #30 tab 04/08/18 diltiaZEM CD [Cardizem CD] 300 mg PO DAILY #30 cap 04/08/18 metFORMIN [glucOPHAGE] 500 mg PO BIDWM #60 tab 04/08/18 Albuterol Sulfate [Ventolin Hfa] 2 puff IH Q6 PRN 04/25/18 Clindamycin [Cleocin] 300 mg PO TID #21 cap 04/26/18 Fluticasone/Salmeterol [Advair 1 each IH Q12 #1 blst.w.dev 04/26/18 250-50 Diskus] Furosemide [Lasix] 20 mg PO DAILY #30 tab 04/26/18 Ibuprofen [Motrin] 400 mg PO Q6 PRN #28 tab 04/26/18 Levalbuterol Tartrate [Xopenex Hfa] 15 gm IH Q4 PRN #1 hfa.aer.ad 04/26/18 Methylprednisolone [Medrol Dose 4 mg PO DAILY #21 mg 04/26/18 Pack (21 tabs)] - Allergies Allergies/Adverse Reactions: Allergies Allergy/AdvReac Type Severity Reaction Status Date / Time Penicillins Allergy RASH Verified 04/25/18 16:48 Review of Systems ROS Statement: Except As Marked, All Systems Reviewed And Found Negative (as per HPI) Cardiovascular: Negative for: Chest Pain (pressure) Respiratory: Positive for: Shortness of Breath. Negative for: Cough Physical Exam - Reviewed Nursing Documentation Reviewed: Yes Vital Signs Reviewed: Yes - Physical Exam Appears: Positive for: No Acute Distress (sleeping comfortably) Head Exam: Positive for: ATRAUMATIC, NORMOCEPHALIC Skin: Positive for: Warm, Dry Eye Exam: Positive for: EOMI ENT: Positive for: Pharynx Is (clear) Neck: Positive for: Painless ROM, Supple Cardiovascular/Chest: Positive for: Regular Rate, Rhythm. Negative for: Murmur Respiratory: Positive for: Normal Breath Sounds (clear to auscultation bilaterally). Negative for: Rales, Wheezing Gastrointestinal/Abdominal: Positive for: Soft. Negative for: Tenderness Back: Negative for: Decreased ROM Extremity: Positive for: Other (biateral lower leg edema with minima pitting; thick pithiatic anterior tibia). Negative for: Deformity Lymphatic: Negative for: Adenopathy Neurological/Psych: Positive for: Awake. Negative for: Motor/Sensory Deficits - Laboratory Results Result Diagrams: 04/26/18 04:55 04/26/18 04:55 - ECG ECG Rhythm: Positive for: Normal ST Segment, Atrial Fibrillation Rate: 85 (Rate Controlled) O2 Sat by Pulse Oximetry: 97 (RA) Pulse Ox Interpretation: Normal Medical Decision Making Medical Decision Making: Time: 1650 Impression: COPD Exacerbation, Atrial Fibrillation, and Rate Control. Plan: Type and Screen EKG Alcohol Serum BNP CMP Drug Screen [place] Phosphorus Troponin I Urine Dipstick CBC PTT Prothrombin Time CXR [employer] IV Insertion Time; 1844 FINDINGS: LUNGS: Mild pulmonary venous congestion. PLEURA: Small pleural effusions seen best on lateral view. No definite pneumothorax . CARDIOVASCULAR: Cardiomegaly. Atherosclerotic calcifications of an ectatic aorta. OSSEOUS STRUCTURES: Degenerative changes of the spine. VISUALIZED UPPER ABDOMEN: Unremarkable. OTHER FINDINGS: None. IMPRESSION: Mild pulmonary venous congestion. Small pleural effusions seen best on lateral view. Cardiomegaly. Time: 1854 Based off CXR patient has new pleural effusion compared to last CXR on 04/17/2018. Labs show increased pro-BNP. Hospitalization for atrial fibrillation, and CHF and COPD exacerbation. --------- -------- Scribe Attestation: Documented by Isaac Lopez, acting as a scribe for Mery Isabel MD. Provider Scribe Attestation: All medical record entries made by the Scribe were at my direction and personally dictated by me. I have reviewed the chart and agree that the record accurately reflects my personal performance of the history, physical exam, medical decision making, and the department course for this patient. I have also personally directed, reviewed, and agree with the discharge instructions and disposition. Disposition - Clinical Impression Clinical Impression: Atrial fibrillation, COPD exacerbation, CHF (congestive heart failure) - Disposition Disposition Time: 18:55 Condition: FAIR - Pt Status Changed To: Hospital Disposition Of: Observation - POA Present On Arrival: None
[2018-04-25 17:33] LABS: BASO % 0.2 % (0.0-2.0); EOS % 0.1 % (0.0-4.0); LYMPH # 0.4 K/uL (1.0-4.3); LYMPH % 5.6 % (20.0-40.0); MEAN CELL VOLUME 84.6 fl (80.0-94.0); MEAN CORPUSCULAR HGB CONC 30.7 g/dL (33.0-37.0); MEAN PLATELET VOLUME 9.6 fl (7.2-11.7); MONO # 0.8 K/uL (0.0-0.8); MONO % 11.5 % (0.0-10.0); NEUT % 82.6 % (50.0-75.0); PLATELET COUNT 227 K/uL (130-400); RBC 4.23 Mil/uL (4.40-5.90); RED CELL DISTRIBUTION WIDTH 20.4 % (11.5-14.5); WHITE BLOOD COUNT 7.3 K/uL (4.8-10.8)
[2018-04-25 17:45] LABS: INR 1.3; PROTHROMBIN TIME 14.8 Seconds (9.8-13.1)
[2018-04-25 17:48] LABS: PARTIAL THROMBOPLASTIN TIME 31.7 Seconds (25.6-37.1)
[2018-04-25 17:53] LABS: B-TYPE NATRIURETIC PEPTIDE 1490 pg/ml (0-900)
[2018-04-25 17:59] LABS: ALB/GLOB RATIO 1.4 (1.0-2.1); ALBUMIN 3.7 g/dL (3.5-5.0); ALT/SGPT 37 U/L (21-72); AST/SGOT 23 U/L (17-59); BLOOD UREA NITROGEN 23 mg/dl (9-20); CALCIUM 11.1 mg/dL (8.4-10.2); GFR NON-AFRICAN AMERICAN > 60
--- NOTE | 2018-04-25 18:49 | RAD ---
HISTORY: sob COMPARISON: Chest x-ray performed 04/17/18 TECHNIQUE: Chest PA and lateral FINDINGS: LUNGS: Mild pulmonary venous congestion. PLEURA: Small pleural effusions seen best on lateral view. No definite pneumothorax . CARDIOVASCULAR: Cardiomegaly. Atherosclerotic calcifications of an ectatic aorta. OSSEOUS STRUCTURES: Degenerative changes of the spine. VISUALIZED UPPER ABDOMEN: Unremarkable. OTHER FINDINGS: None. IMPRESSION: Mild pulmonary venous congestion. Small pleural effusions seen best on lateral view. Cardiomegaly.
[2018-04-25 19:27] LABS: BANDS 2 % (0-2); EOSINOPHIL 1 % (0-7); LYMPHOCYTE 8 % (20-50); MONOCYTE 10 % (0-10); NEUTROPHIL 79 % (42-75); TOTAL CELLS COUNTED 100
[2018-04-25 19:28] LABS: ANISOCYTOSIS SLIGHT; MICROCYTOSIS SLIGHT; PLATELET ESTIMATE NORMAL (NORMAL); POIKILOCYTOSIS SLIGHT
[2018-04-25 19:29] LABS: HYPOCHROMIC SLIGHT
[2018-04-25] MEDS ORDERED: Albuterol HFA 90 mcg/actuation (8 g) IH PRN (19:37)
[2018-04-25] MEDS ORDERED: Albuterol-Ipratrop 3 mg / 0.5 (3 ml) UD INH PRN (19:41)
--- NOTE | 2018-04-25 20:40 | CP.PCM.HP ---
<Joe Johnson - Last Filed: 04/26/18 01:51> History of Present Illness - History of Present Illness History of Present Illness: 67 y/o M with a PMHx of HTN, DM2, COPD, AFib, gout was brought by EMS to ED after a severe episodes of dyspnea a few hours ago. Pt explains that he was in [facility], when he had severe SOB, was NOT able to catch his breath, had palpitations and decided to call 911. At the ambulance, pt received Nebulizer treatment and 25mg of Cardizem due to atrial fibrillation. Pt was seen at ED yesterday due to SOB and discharged home with PO prednisone therapy. PCP: [facility] -Allergy: Penicillins -Medications: Losartan 100mg PO daily, Digoxin 125mcg PO daily, Gabapentin 300mg BID, Eliquis 5mg PO Q12h, Aspirin 81 mg PO daily, Albuterol inhaler PRN, , Flovent 110mcg INH 1puff Q12, Metformin 500mg BID, Colchicine 0.6mg PO daily, Cardizem 360 mg PO daily, Atorvastatin 40mg daily, Amlodipine 5mg PO daily, Tudorza pressair INH Daily -PMHx: COPD, Afib, CVA, HTN, HLD, PVD, NIDDM, gout, depression, Hx of cocaine abuse -Surghx: bunionectomy, cardiac cath June 2016, I&D upper back 08/2017 -FHx: HTN and DM on both sides of family. - SHx: Homeless- lives in fdc, Pt smokes 2-3 cigarettes a day, (50+pack year history), Cocaine-last done 1 year ago. denies alcohol. ED COURSE: --Vitals signs showed mild tachycardia, elevated BP. --Pro-BNP 1490-elevated, negative troponin. --IV Lasix 40mg x1 administered Present on Admission - Present on Admission Any Indicators Present on Admission: No Review of Systems - Constitutional Constitutional: absent: Anorexia, Chills, Fever - EENT Nose/Mouth/Throat: absent: Sore Throat, Tongue Swelling, Facial Pain, Neck Mass - Cardiovascular Cardiovascular: Dyspnea. absent: Chest Pain - Respiratory Respiratory: Dyspnea. absent: Cough, Hemoptysis, Wheezing - Gastrointestinal Gastrointestinal: absent: Abdominal Pain, Diarrhea, Nausea, Temesmus, Vomiting - Genitourinary Genitourinary: absent: Dysuria, Flank Pain, Hematuria, Urinary Frequency Past Patient History - Infectious Disease Hx of Infectious Diseases: None - Tetanus Immunizations Tetanus Immunization: Unknown - Past Medical History & Family History Past Medical History?: Yes - Past Social History Smoking Status: Current Some Days Smoker - CARDIAC Hx Atrial Fibrillation: Yes Hx Cardia Arrhythmia: Yes Hx Congestive Heart Failure: Yes Hx Hypercholesterolemia: Yes Hx Hypertension: Yes Hx Mitral Valve Prolapse: No Hx Pacemaker: No Hx Peripheral Edema: Yes - PULMONARY Hx Asthma: Yes Hx Bronchitis: Yes Hx Chronic Obstructive Pulmonary Disease (COPD): Yes Hx Emphysema: No Hx Pneumonia: Yes Hx Pulmonary Embolism: Yes Hx Sleep Apnea: No - NEUROLOGICAL Hx Alzheimer's Disease: No Hx Dementia: No Hx Migraine: No Hx Multiple Sclerosis: No Hx Parkinson's Disease: No Hx Seizures: No Hx Transient Ischemic Attacks (TIA): No - HEENT Hx HEENT Problems: No - RENAL Hx Chronic Kidney Disease: No Hx Kidney Stones: No - ENDOCRINE/METABOLIC Hx Hyperthyroidism: Yes Hx Hypothyroidism: No - HEMATOLOGICAL/ONCOLOGICAL Hx Anemia: No Hx Human Immunodeficiency Virus (HIV): No Hx Sickle Cell Disease: No - INTEGUMENTARY Hx Dermatological Problems: No - MUSCULOSKELETAL/RHEUMATOLOGICAL Hx Arthritis: Yes Hx Fractures: No Hx Osteoporosis: No Hx Rheumatoid Arthritis: No - GASTROINTESTINAL Hx Crohn's Disease: No Hx Diverticulitis: No Hx Gall Bladder Disease: No Hx Gastritis: Yes Hx Pancreatitis: No - GENITOURINARY/GYNECOLOGICAL Hx Sexually Transmitted Disorders: No - PSYCHIATRIC Hx Anxiety: Yes Hx Bipolar Disorder: No Hx Depression: Yes Hx Paranoia: No Hx Post Traumatic Stress Disorder: No Hx Schizophrenia: No - SURGICAL HISTORY Hx Appendectomy: No Hx Carotid Endarterectomy: No Hx Cholecystectomy: No Hx Coronary Artery Bypass Graft: No Hx Coronary Stent: No Hx Tonsillectomy: No - ANESTHESIA Hx Anesthesia: Yes Hx Anesthesia Reactions: No Hx Malignant Hyperthermia: No Meds Allergies/Adverse Reactions: Allergies Allergy/AdvReac Type Severity Reaction Status Date / Time Penicillins Allergy RASH Verified 04/25/18 16:48 Physical Exam - Constitutional Appears: Well, No Acute Distress - Head Exam Head Exam: ATRAUMATIC, NORMAL INSPECTION - Eye Exam Eye Exam: EOMI, Normal appearance - ENT Exam ENT Exam: Mucous Membranes Dry - Neck Exam Neck exam: Positive for: Full Rom, Normal Inspection. Negative for: Lymphadenopathy, Meningismus - Respiratory Exam Respiratory Exam: Rales (on bilateral bases), NORMAL BREATHING PATTERN. absent: Rhonchi, Wheezes, Respiratory Distress - Cardiovascular Exam Cardiovascular Exam: Tachycardia, +S1, +S2 - GI/Abdominal Exam GI & Abdominal Exam: Normal Bowel Sounds, Soft. absent: Distended, Guarding, Hernia, Tenderness - Extremities Exam Extremities exam: Positive for: full ROM, pedal edema (+1 b/l. ). Negative for: calf tenderness Additional comments: Presence of significant venous stasis diffuse dermatitis. - Back Exam Back exam: absent: CVA tenderness (L), CVA tenderness (R) - Neurological Exam Neurological exam: Alert, Oriented x3 Results - Vital Signs Recent Vital Signs: Last Vital Signs Temp 98.0 F 04/25/18 16:48 Pulse 99 H 04/25/18 19:25 Resp 18 04/25/18 19:25 BP 158/106 H 04/25/18 19:31 Pulse Ox 99 04/25/18 19:25 - Labs Result Diagrams: 04/25/18 17:20 04/25/18 17:20 Labs: Laboratory Results - last 24 hr 04/25/18 04/25/18 04/25/18 17:20 17:20 17:20 WBC 7.3 RBC 4.23 L Hgb 11.0 L Hct 35.8 MCV 84.6 MCH 26.0 L MCHC 30.7 L RDW 20.4 H Plt Count 227 MPV 9.6 Neut % (Auto) 82.6 H Lymph % (Auto) 5.6 L [place] % (Auto) 11.5 H Eos % (Auto) 0.1 Baso % (Auto) 0.2 Neut # (Auto) 6.0 Lymph # (Auto) 0.4 L [place] # (Auto) 0.8 Eos # (Auto) 0.0 Baso # (Auto) 0.0 Neutrophils % (Manual) 79 H Band Neutrophils % 2 Lymphocytes % (Manual) 8 L Monocytes % (Manual) 10 Eosinophils % (Manual) 1 Platelet Estimate Normal Hypochromasia (manual) Slight Poikilocytosis (manual Slight Anisocytosis (manual) Slight Microcytosis (manual) Slight PT 14.8 H INR 1.3 APTT 31.7 Sodium 146 Potassium 5.2 H Chloride 104 Carbon Dioxide 31 H Anion Gap 16 BUN 23 H Creatinine 1.2 Est GFR ( Amer) > 60 Est GFR (Non-Af Amer) > 60 Random Glucose 207 H Calcium 11.1 H Phosphorus 2.4 L Magnesium 2.1 Total Bilirubin 0.4 AST 23 ALT 37 Alkaline Phosphatase 120 Troponin I 0.0180 NT-Pro-B Natriuret Pep 1490 H Total Protein 6.4 Albumin 3.7 Globulin 2.7 Albumin/Globulin Ratio 1.4 Alcohol, Quantitative < 10 Blood Type Antibody Screen BBK History Checked 04/25/18 17:20 WBC RBC Hgb Hct MCV MCH MCHC RDW Plt Count MPV Neut % (Auto) Lymph % (Auto) [place] % (Auto) Eos % (Auto) Baso % (Auto) Neut # (Auto) Lymph # (Auto) [place] # (Auto) Eos # (Auto) Baso # (Auto) Neutrophils % (Manual) Band Neutrophils % Lymphocytes % (Manual) Monocytes % (Manual) Eosinophils % (Manual) Platelet Estimate Hypochromasia (manual) Poikilocytosis (manual Anisocytosis (manual) Microcytosis (manual) PT INR APTT Sodium Potassium Chloride Carbon Dioxide Anion Gap BUN Creatinine Est GFR ( Amer) Est GFR (Non-Af Amer) Random Glucose Calcium Phosphorus Magnesium Total Bilirubin AST ALT Alkaline Phosphatase Troponin I NT-Pro-B Natriuret Pep Total Protein Albumin Globulin Albumin/Globulin Ratio Alcohol, Quantitative Blood Type A POSITIVE Antibody Screen Negative BBK History Checked Patient has bt Assessment & Plan - Assessment and Plan (Free Text) Assessment: 67 y/o M with a PMHx of HTN, DM2, COPD, AFib and homeless was admitted for evaluation and management of acute CHF exacerbation. PLAN: >Acute CHF exacerbation (Preserved EF-HF) --Presented with dyspnea, rales on physical exam, elevated Pro-BNP. --Last EChocardiogram: EF 55-60%, moderate MR, LV diastolic function not asses due to A frib. --C/w Lasix 40mg IV daily. >Atrial fibrillation with RVR --Chronic --Rate controlled --S/P Cardizem at ambulance --C/w PO home meds: Cardizem and Eliquis --Continuous cardiac monitoring. >COPD --Still smokes. No wheezing on exam. --Dyspnea less likely to be COPD exacerbation. --Xopenex PRN Q4H as per Hx of Afib and tachycardia. --Continue with home medications >Diabetes Mellitus type 2, controlled --Last HbA1c 6.9 (03/24/18) --Home meds resumed --Insulin sliding scale >PVD (peripheral vascular disease) --chronic >Gout --chronic controlled --Home meds resumed >Hyperlipidemia --Chronic, controlled --Home meds resumed >Hypertension --Chronic, controlled --Home meds resumed --F/u BP. >Diet --Consistent carbohydrate diet. >DVT PPX --On Eliquis Case discussed with Dr Johnson, hospitalist Elizabeth PGY-2. <Gavino Johnson - Last Filed: 04/28/18 13:13> Results - Vital Signs Recent Vital Signs: Last Vital Signs Temp 97.9 F 04/26/18 15:49 Pulse 85 04/27/18 09:32 Resp 20 04/26/18 15:49 BP 125/70 04/26/18 15:49 Pulse Ox 97 04/27/18 09:32 - Labs Result Diagrams: 04/26/18 04:55 04/26/18 04:55 Attending/Attestation - Attestation I have personally seen and examined this patient.: Yes I have fully participated in the care of the patient.: Yes I have reviewed all pertinent clinical information: Yes Notes (Text): 04/28/18 13:13 Patient seen and examined with resident. Case discussed and agreed with assessment and plan of management.
[2018-04-25] MEDS: Levalbuterol 1.25 MG/3 ML Inhal Soln UD INH PRN (23:24)
[2018-04-25] MEDS ORDERED: Nitroglycerin 2% Ointment Foilpak UD TOP STA (23:55)
[2018-04-26 00:29] VITALS: RESP 20
[2018-04-26] MEDS ORDERED: Glucagon Recombinant 1 mg Inj IM PRN (01:33)
[2018-04-26] MEDS ORDERED: Dextrose 50% SYRINGE Inj (50 ml) IV PRN (01:33)
[2018-04-26 06:12] LABS: HEMOGLOBIN 10.9 g/dL (12.0-18.0); MEAN CELL VOLUME 83.9 fl (80.0-94.0); MEAN CORPUSCULAR HEMOGLOBIN 26.7 pg (27.0-31.0); MEAN CORPUSCULAR HGB CONC 31.8 g/dL (33.0-37.0); RBC 4.09 Mil/uL (4.40-5.90); RED CELL DISTRIBUTION WIDTH 20.5 % (11.5-14.5); WHITE BLOOD COUNT 8.8 K/uL (4.8-10.8)
[2018-04-26 06:35] LABS: BLOOD UREA NITROGEN 25 mg/dl (9-20); CALCIUM 11.3 mg/dL (8.4-10.2); GFR NON-AFRICAN AMERICAN 55
[2018-04-26] MEDS: Levalbuterol 1.25 MG/3 ML Inhal Soln UD INH PRN (08:08)
[2018-04-26] MEDS: Insulin Lispro (humaLOG) 100 Units/ml Inj SC SCH ×2 (08:16→13:51)
[2018-04-26 08:19] VITALS: PULSE 115
[2018-04-26] MEDS ORDERED: Digoxin 125 mcg (0.125 mg) Tab PO SCH (09:00)
[2018-04-26] MEDS ORDERED: diltiaZEM 300 mg/24 Hours CD Cap PO SCH (09:00)
[2018-04-26] MEDS ORDERED: COLCHICINE 0.6 MG CAPSULE PO SCH (09:00)
[2018-04-26] MEDS ORDERED: ACLIDINIUM BROMIDE IH SCH (09:00)
--- NOTE | 2018-04-26 09:01 | CARD ---
APPROVED REPORT Date of service: 04/25/2018 EKG Measurement Heart [id number] <Conclusion> Atrial fibrillation Abnormal ECG
[2018-04-26] MEDS ORDERED: methylPREDNISolone 125 MG in Sodium Chloride 0.9% 50 ML IVPB ONE (12:46)
[2018-04-26] MEDS ORDERED: Clindamycin 600mg/50ml D5W 600 MG/50 ML VIAL IVPB ONE (12:46)
[2018-04-26] MEDS ORDERED: Albuterol-Ipratrop 3 mg / 0.5 (3 ml) UD INH STA (12:50)
--- NOTE | 2018-04-26 12:57 | CP.PCM.DIS ---
<Birdie Abernathy - Last Filed: 04/26/18 12:54> Provider - Provider Date of Admission: 04/25/18 18:58 Attending physician: Gavino Johnson MD Time Spent in preparation of Discharge (in minutes): 30 Diagnosis - Discharge Diagnosis (1) CHF exacerbation Status: Acute (2) Chronic heart failure Status: Acute Hospital Course - Lab Results Lab Results: Most Recent Lab Values WBC 8.8 K/uL (4.8-10.8) 04/26/18 04:55 RBC 4.09 Mil/uL (4.40-5.90) L 04/26/18 04:55 Hgb 10.9 g/dL (12.0-18.0) L 04/26/18 04:55 Hct 34.3 % (35.0-51.0) L 04/26/18 04:55 MCV 83.9 fl (80.0-94.0) 04/26/18 04:55 MCH 26.7 pg (27.0-31.0) L 04/26/18 04:55 MCHC 31.8 g/dL (33.0-37.0) L 04/26/18 04:55 RDW 20.5 % (11.5-14.5) H 04/26/18 04:55 Plt Count 238 K/uL (130-400) 04/26/18 04:55 MPV 9.6 fl (7.2-11.7) 04/25/18 17:20 Neut % (Auto) 82.6 % (50.0-75.0) H 04/25/18 17:20 Lymph % (Auto) 5.6 % (20.0-40.0) L 04/25/18 17:20 Millard % (Auto) 11.5 % (0.0-10.0) H 04/25/18 17:20 Eos % (Auto) 0.1 % (0.0-4.0) 04/25/18 17:20 Baso % (Auto) 0.2 % (0.0-2.0) 04/25/18 17:20 Neut # (Auto) 6.0 K/uL (1.8-7.0) 04/25/18 17:20 Lymph # (Auto) 0.4 K/uL (1.0-4.3) L 04/25/18 17:20 Millard # (Auto) 0.8 K/uL (0.0-0.8) 04/25/18 17:20 Eos # (Auto) 0.0 K/uL (0.0-0.7) 04/25/18 17:20 Baso # (Auto) 0.0 K/uL (0.0-0.2) 04/25/18 17:20 Neutrophils % (Manual) 79 % (42-75) H 04/25/18 17:20 Band Neutrophils % 2 % (0-2) 04/25/18 17:20 Lymphocytes % (Manual) 8 % (20-50) L 04/25/18 17:20 Monocytes % (Manual) 10 % (0-10) 04/25/18 17:20 Eosinophils % (Manual) 1 % (0-7) 04/25/18 17:20 Platelet Estimate Normal (NORMAL) 04/25/18 17:20 Hypochromasia (manual) Slight 04/25/18 17:20 Poikilocytosis (manual Slight 04/25/18 17:20 Anisocytosis (manual) Slight 04/25/18 17:20 Microcytosis (manual) Slight 04/25/18 17:20 PT 14.8 Seconds (9.8-13.1) H 04/25/18 17:20 INR 1.3 04/25/18 17:20 APTT 31.7 Seconds (25.6-37.1) 04/25/18 17:20 Sodium 144 mmol/l (132-148) 04/26/18 04:55 Potassium 4.5 MMOL/L (3.6-5.0) 04/26/18 04:55 Chloride 100 mmol/L (98-107) 04/26/18 04:55 Carbon Dioxide 35 mmol/L (22-30) H 04/26/18 04:55 Anion Gap 14 (10-20) 04/26/18 04:55 BUN 25 mg/dl (9-20) H 04/26/18 04:55 Creatinine 1.3 mg/dl (0.8-1.5) 04/26/18 04:55 Est GFR ( Amer) > 60 04/26/18 04:55 Est GFR (Non-Af Amer) 55 04/26/18 04:55 POC Glucose (mg/dL) 143 mg/dL (65-110) H 04/26/18 11:59 Random Glucose 128 mg/dL (75-110) H 04/26/18 04:55 Calcium 11.3 mg/dL (8.4-10.2) H 04/26/18 04:55 Phosphorus 2.4 mg/dl (2.5-4.5) L 04/25/18 17:20 Magnesium 2.1 MG/DL (1.6-2.3) 04/25/18 17:20 Total Bilirubin 0.4 mg/dl (0.2-1.3) 04/25/18 17:20 AST 23 U/L (17-59) 04/25/18 17:20 ALT 37 U/L (21-72) 04/25/18 17:20 Alkaline Phosphatase 120 U/L (38-126) 04/25/18 17:20 Troponin I 0.0180 ng/mL (0.00-0.120) 04/25/18 17:20 NT-Pro-B Natriuret Pep 1490 pg/ml (0-900) H 04/25/18 17:20 Total Protein 6.4 G/DL (6.3-8.2) 04/25/18 17:20 Albumin 3.7 g/dL (3.5-5.0) 04/25/18 17:20 Globulin 2.7 gm/dL (2.2-3.9) 04/25/18 17:20 Albumin/Globulin Ratio 1.4 (1.0-2.1) 04/25/18 17:20 Alcohol, Quantitative < 10 mg/dl (0-10) 04/25/18 17:20 Blood Type A POSITIVE 04/25/18 17:20 Antibody Screen Negative 04/25/18 17:20 BBK History Checked Patient has bt 04/25/18 17:20 - Hospital Course Hospital Course: 67 y/o M with a PMHx of HTN, DM2, COPD, AFib and homeless was admitted for evaluation and management of acute CHF exacerbation. Last EChocardiogram: EF 55- 60%, moderate MR, LV diastolic function not asses due to A frib. Resume all home medications. Complains of swelling and sever pain to the right jaw and tooth pain, stat clindamycin 600 mg given. Rx for clindamycin 300 mg TID. Stat dose of albuterol duoneb given for wheezing. 125 mg IV solumedrol given. Patient to be discharged home with medrol dosepack and xopenex and advair inhaler. - Date & Time of H&P Date of H&P: 04/26/18 Time of H&P: 12:57 Discharge Exam - Head Exam Head Exam: ATRAUMATIC, NORMAL INSPECTION - Eye Exam Eye Exam: Normal appearance Pupil Exam: NORMAL ACCOMODATION - ENT Exam ENT Exam: Mucous Membranes Moist - Respiratory Exam Respiratory Exam: Wheezes, Respiratory Distress - Cardiovascular Exam Cardiovascular Exam: REGULAR RHYTHM, +S1, +S2 - Neurological Exam Neurological exam: Alert, Oriented x3 Discharge Plan - Discharge Medications Prescriptions: Clindamycin [Cleocin] 300 mg PO TID #21 cap Fluticasone/Salmeterol [Advair 250-50 Diskus] 1 each IH Q12 #1 blst.w.dev Ibuprofen [Motrin] 400 mg PO Q6 PRN #28 tab PRN Reason: Pain, Moderate (4-7) Levalbuterol Tartrate [Xopenex Hfa] 15 gm IH Q4 PRN #1 hfa.aer.ad PRN Reason: Wheezing Methylprednisolone [Medrol Dose Pack (21 tabs)] 4 mg PO DAILY #21 mg - Follow Up Plan Condition: FAIR Disposition: HOME/ ROUTINE Instructions: Heart Failure, Adult (DC), Exacerbation of COPD (DC) Additional Instructions: follow up visit in the clinic on 04/27/18 at 3:20pm with Referrals: [facility] [Outside] <Steffany Mueller - Last Filed: 04/26/18 18:22> Provider - Provider Date of Admission: 04/25/18 18:58 Attending physician: Gavino Johnson MD Hospital Course - Lab Results Lab Results: Most Recent Lab Values WBC 8.8 K/uL (4.8-10.8) 04/26/18 04:55 RBC 4.09 Mil/uL (4.40-5.90) L 04/26/18 04:55 Hgb 10.9 g/dL (12.0-18.0) L 04/26/18 04:55 Hct 34.3 % (35.0-51.0) L 04/26/18 04:55 MCV 83.9 fl (80.0-94.0) 04/26/18 04:55 MCH 26.7 pg (27.0-31.0) L 04/26/18 04:55 MCHC 31.8 g/dL (33.0-37.0) L 04/26/18 04:55 RDW 20.5 % (11.5-14.5) H 04/26/18 04:55 Plt Count 238 K/uL (130-400) 04/26/18 04:55 MPV 9.6 fl (7.2-11.7) 04/25/18 17:20 Neut % (Auto) 82.6 % (50.0-75.0) H 04/25/18 17:20 Lymph % (Auto) 5.6 % (20.0-40.0) L 04/25/18 17:20 Millard % (Auto) 11.5 % (0.0-10.0) H 04/25/18 17:20 Eos % (Auto) 0.1 % (0.0-4.0) 04/25/18 17:20 Baso % (Auto) 0.2 % (0.0-2.0) 04/25/18 17:20 Neut # (Auto) 6.0 K/uL (1.8-7.0) 04/25/18 17:20 Lymph # (Auto) 0.4 K/uL (1.0-4.3) L 04/25/18 17:20 Millard # (Auto) 0.8 K/uL (0.0-0.8) 04/25/18 17:20 Eos # (Auto) 0.0 K/uL (0.0-0.7) 04/25/18 17:20 Baso # (Auto) 0.0 K/uL (0.0-0.2) 04/25/18 17:20 Neutrophils % (Manual) 79 % (42-75) H 04/25/18 17:20 Band Neutrophils % 2 % (0-2) 04/25/18 17:20 Lymphocytes % (Manual) 8 % (20-50) L 04/25/18 17:20 Monocytes % (Manual) 10 % (0-10) 04/25/18 17:20 Eosinophils % (Manual) 1 % (0-7) 04/25/18 17:20 Platelet Estimate Normal (NORMAL) 04/25/18 17:20 Hypochromasia (manual) Slight 04/25/18 17:20 Poikilocytosis (manual Slight 04/25/18 17:20 Anisocytosis (manual) Slight 04/25/18 17:20 Microcytosis (manual) Slight 04/25/18 17:20 PT 14.8 Seconds (9.8-13.1) H 04/25/18 17:20 INR 1.3 04/25/18 17:20 APTT 31.7 Seconds (25.6-37.1) 04/25/18 17:20 Sodium 144 mmol/l (132-148) 04/26/18 04:55 Potassium 4.5 MMOL/L (3.6-5.0) 04/26/18 04:55 Chloride 100 mmol/L (98-107) 04/26/18 04:55 Carbon Dioxide 35 mmol/L (22-30) H 04/26/18 04:55 Anion Gap 14 (10-20) 04/26/18 04:55 BUN 25 mg/dl (9-20) H 04/26/18 04:55 Creatinine 1.3 mg/dl (0.8-1.5) 04/26/18 04:55 Est GFR ( Amer) > 60 04/26/18 04:55 Est GFR (Non-Af Amer) 55 04/26/18 04:55 POC Glucose (mg/dL) 143 mg/dL (65-110) H 04/26/18 11:59 Random Glucose 128 mg/dL (75-110) H 04/26/18 04:55 Calcium 11.3 mg/dL (8.4-10.2) H 04/26/18 04:55 Phosphorus 2.4 mg/dl (2.5-4.5) L 04/25/18 17:20 Magnesium 2.1 MG/DL (1.6-2.3) 04/25/18 17:20 Total Bilirubin 0.4 mg/dl (0.2-1.3) 04/25/18 17:20 AST 23 U/L (17-59) 04/25/18 17:20 ALT 37 U/L (21-72) 04/25/18 17:20 Alkaline Phosphatase 120 U/L (38-126) 04/25/18 17:20 Troponin I 0.0180 ng/mL (0.00-0.120) 04/25/18 17:20 NT-Pro-B Natriuret Pep 1490 pg/ml (0-900) H 04/25/18 17:20 Total Protein 6.4 G/DL (6.3-8.2) 04/25/18 17:20 Albumin 3.7 g/dL (3.5-5.0) 04/25/18 17:20 Globulin 2.7 gm/dL (2.2-3.9) 04/25/18 17:20 Albumin/Globulin Ratio 1.4 (1.0-2.1) 04/25/18 17:20 Urine Opiates Screen Negative (NEGATIVE) 04/26/18 13:40 Urine Methadone Screen Negative (NEGATIVE) 04/26/18 13:40 Ur Barbiturates Screen Negative (NEGATIVE) 04/26/18 13:40 Ur Phencyclidine Scrn Negative (NEGATIVE) 04/26/18 13:40 Ur Amphetamines Screen Negative (NEGATIVE) 04/26/18 13:40 U Benzodiazepines Scrn Negative (NEGATIVE) 04/26/18 13:40 U Oth Cocaine Metabols Positive (NEGATIVE) H 04/26/18 13:40 U Cannabinoids Screen Negative (NEGATIVE) 04/26/18 13:40 Alcohol, Quantitative < 10 mg/dl (0-10) 04/25/18 17:20 Blood Type A POSITIVE 04/25/18 17:20 Antibody Screen Negative 04/25/18 17:20 BBK History Checked Patient has bt 04/25/18 17:20 Attending/Attestation - Attestation I have personally seen and examined this patient.: Yes I have fully participated in the care of the patient.: Yes I have reviewed all pertinent clinical information, including history, physical exam and plan: Yes Notes (Text): Discharge Diagnoses: COPD exacerbation CHF exacerbation, diastolic dysfunction, EF 55-60% Dental Caries Atrial fibrillation , chronic PVD (peripheral vascular disease) DM type II - received IV Solumedrol and Xopenex - IV Lasix given - started on Clindamycin for poss begining dental infection - cont home meds - cont Eliquis, Digoxin , Cardizem - ff up FP clinic katherin - will d/c pt on PO medrol dose laquita, and PO Clinda - cont PO Lasix and Losartan
[2018-04-26 14:38] LABS: BARBITURATES, UR NEGATIVE (NEGATIVE); BENZODIAZEPINES, UR NEGATIVE (NEGATIVE); OPIATES, UR NEGATIVE (NEGATIVE); PHENCYCLIDINE, UR NEGATIVE (NEGATIVE)
[2018-04-26 15:50] VITALS: BP 125/70; TEMP 97.9
[2018-04-27 09:30] VITALS: PULSE 85; O2SAT 97
== END 2018-04-26 17:00 | disposition home or self-care (01) ==
LOC: H.ER 16:42 → H.ERHOLD 18:58 → H.TEL 22:27
DX: J44.1 Chronic obstructive pulmonary disease with (acute) exacerbation (principal); I11.0 Hypertensive heart disease with heart failure; I50.33 Acute on chronic diastolic (congestive) heart failure; I48.2 Chronic atrial fibrillation; E11.51 Type 2 diabetes mellitus with diabetic peripheral angiopathy without gangrene; M1A.9XX0 Chronic gout, unspecified, without tophus (tophi); Z59.0 Homelessness; E78.5 Hyperlipidemia, unspecified; Z86.711 Personal history of pulmonary embolism; K02.9 Dental caries, unspecified; Z79.01 Long term (current) use of anticoagulants; Z79.82 Long term (current) use of aspirin; Z88.0 Allergy status to penicillin; F41.9 Anxiety disorder, unspecified; Z91.19 Patient's noncompliance with other medical treatment and regimen; I25.10 Atherosclerotic heart disease of native coronary artery without angina pectoris; F32.9 Major depressive disorder, single episode, unspecified; K29.70 Gastritis, unspecified, without bleeding; F17.210 Nicotine dependence, cigarettes, uncomplicated; E78.00 Pure hypercholesterolemia, unspecified
CPT/HCPCS: 36415; 71046; 80048; 80053; 80320; 80324; 80345; 80346; 80349; 80353; 80358; 80361; 82948; 83735; 83880; 83992; 84100; 84484; 85025; 85027; 85610; 85730; 86850; 86900; 93005; 94640; 96374; 99283; G0378; J1940; J2930

== ENCOUNTER 2018-05-01 17:10 | Observation (INO) | payer MEDICAID ==
[2018-05-01 17:10] VITALS: BMI 34.9
[2018-05-01] MEDS ORDERED: Albuterol-Ipratrop 3 mg / 0.5 (3 ml) UD INH STA ×2 (17:32→18:47)
--- NOTE | 2018-05-01 17:43 | ED PDOC ---
HPI: SOB/CHF/COPD Time Seen by Provider: 05/01/18 17:22 Chief Complaint (Nursing): Respiratory Distress Chief Complaint (Provider): SOB History Per: Patient History/Exam Limitations: no limitations Onset/Duration Of Symptoms: Persistent Current Symptoms Are (Timing): Still Present Quality: "Pain" Exacerbating Factor(s): Coughing Additional Complaint(s): 67 year old male with a history of CHF, COPD, asthma, atrial fibrillation and CKD presents to the ED via EMS for evaluation of shortness of breath. He reports chest pain only when he coughs. Patient was given 1 dose of nitroglycerin SL en route to the ED. Patient is undomiciled and well known to the ED for multiple visits regarding a variety of symptoms. Offers no other complaints at this time. PMD: Dr. Maricruz Solis - Risk Factors PE Risk Factors: Pos: CHF Past Medical History Reviewed: Historical Data, Nursing Documentation, Vital Signs Vital Signs: Last Vital Signs Temp 98.2 F 05/01/18 17:12 Pulse 86 05/01/18 17:12 Resp 24 05/01/18 17:12 BP 164/104 H 05/01/18 17:12 Pulse Ox 97 05/01/18 17:12 - Medical History PMH: Anxiety, Arthritis, Asthma, Atrial Fibrillation, Back Problems, Bronchitis, CAD, Cardia Arrhythmia, CHF, COPD, CVA, Depression, Diabetes, Deep Vein Thrombosis, Gastritis, HTN, Hypercholesterolemia, Hyperlipidemia, Hyperthyroidism, Peripheral Edema, Pneumonia, Pulmonary Embolism Denies: Alzheimer's Disease, Anemia, Bipolar Disorder, Crohn's Disease, Dementia, Diverticulitis, Emphysema, Fractures, Gall Bladder Disease, HIV, Hypothyroidism, Kidney Stones, Migraine, Mitral Valve Prolapse, Multiple Sclerosis, Osteoporosis, Pancreatitis, Paranoia, Parkinson's Disease, Post Traumatic Stress Disorder, Chronic Kidney Disease, Rheumatoid Arthritis, Schizophrenia, Seizures, Sickle Cell Disease, Sexually Transmitted Disease, Sleep Apnea, TIA - Surgical History Surgical History: Hernia Repair Denies: Appendectomy, CABG, Carotid Endarterectomy, Cholecystectomy, Coronary Stent, Pacemaker, Tonsillectomy - Family History Family History: States: [place], CAD, Diabetes, Hypertension (mother) - Immunization History Hx Tetanus Toxoid Vaccination: No Hx Influenza Vaccination: No Hx Pneumococcal Vaccination: No - Home Medications Home Medications: Ambulatory Orders Medication Instructions Recorded Ibuprofen [Motrin Tab] 400 mg PO Q6 PRN #28 tab 04/26/18 Albuterol HFA [Ventolin HFA 90 1 - 2 puff IH Q6 PRN #1 inhaler 05/01/18 mcg/actuation (8 g)] Aclidinium [place] [Tudorza 1 puff IH DAILY #1 aer.pow.ba 05/03/18 Pressair] Albuterol Sulfate [Ventolin Hfa] 2 puff IH Q6 PRN #1 hfa.aer.ad 05/03/18 Apixaban [Eliquis] 5 mg PO Q12 #60 tab 05/03/18 Aspirin [Aspirin Chewable] 81 mg PO DAILY #30 chew 05/03/18 Atorvastatin [Lipitor] 40 mg PO DAILY #30 tab 05/03/18 Azithromycin [Zithromax] 250 mg PO DAILY #4 tab 05/03/18 Colchicine [Mitigare] 0.6 mg PO DAILY #30 capsule 05/03/18 Digoxin [Digitek] 125 mcg PO DAILY #30 tablet 05/03/18 Fluticasone/Salmeterol [Advair 1 each IH Q12 #1 blst.w.dev 05/03/18 250-50 Diskus] Furosemide [Lasix] 20 mg PO DAILY #30 tab 05/03/18 Gabapentin [Neurontin] 300 mg PO Q12 #60 cap 05/03/18 Losartan [Cozaar] 100 mg PO DAILY #30 tab 05/03/18 Methylprednisolone [Medrol Dose 4 mg PO DAILY #21 mg 05/03/18 Pack (21 tabs)] amLODIPine [Norvasc] 10 mg PO DAILY #30 tab 05/03/18 diltiaZEM CD [Cardizem CD] 300 mg PO DAILY #30 cap 05/03/18 metFORMIN [glucOPHAGE] 500 mg PO BIDWM #60 tab 05/03/18 - Allergies Allergies/Adverse Reactions: Allergies Allergy/AdvReac Type Severity Reaction Status Date / Time Penicillins Allergy RASH Verified 04/25/18 16:48 Review of Systems ROS Statement: Except As Marked, All Systems Reviewed And Found Negative Constitutional: Negative for: Fever, Chills Cardiovascular: Positive for: Chest Pain (only when he coughs). Negative for: Palpitations Respiratory: Positive for: Cough, Shortness of Breath Gastrointestinal: Negative for: Nausea, Vomiting, Diarrhea Physical Exam - Reviewed Nursing Documentation Reviewed: Yes Vital Signs Reviewed: Yes - Physical Exam Appears: Positive for: No Acute Distress Head Exam: Positive for: ATRAUMATIC, NORMAL INSPECTION, NORMOCEPHALIC Skin: Positive for: Normal Color, Warm, Dry. Negative for: Rash Eye Exam: Positive for: EOMI, Normal appearance, PERRL Neck: Positive for: Normal, Painless ROM, Supple Cardiovascular/Chest: Positive for: Regular Rate, Rhythm. Negative for: Murmur Respiratory: Positive for: Wheezing (bilateral). Negative for: Respiratory Distress Gastrointestinal/Abdominal: Positive for: Normal Exam, Soft. Negative for: Tenderness Back: Positive for: Normal Inspection. Negative for: L CVA Tenderness, R CVA Tenderness Extremity: Positive for: Normal ROM (x 4). Negative for: Deformity Neurological/Psych: Positive for: Awake, Alert, Normal Tone, Oriented. Negative for: Motor/Sensory Deficits - Laboratory Results Result Diagrams: 05/03/18 04:30 05/03/18 04:30 - ECG O2 Sat by Pulse Oximetry: 97 (RA) Pulse Ox Interpretation: Normal - Radiology X-Ray: Interpreted by Me X-Ray Interpretation: No Acute Disease Medical Decision Making Medical Decision Makin:32 Impression: shortness of breath Initial Plan: --EKG --CMP --CBC --CXR --Duoneb 3 ml INH --Peak flow pre/post --Solu-medrol 125 mg IVP 19:00 Patient signed out to Dr. Peters pending repeat EKG, re-evaluation and final disposition. Scribe Attestation: Documented by No Bonds, acting as a scribe for Jeanne Ram MD Provider Scribe Attestation: All medical record entries made by the Scribe were at my direction and pers onally dictated by me. I have reviewed the chart and agree that the record accurately reflects my personal performance of the history, physical exam, medical decision making, and the department course for this patient. I have also personally directed, reviewed, and agree with the discharge instructions and disposition Disposition - Clinical Impression Clinical Impression: COPD exacerbation - Patient ED Disposition Is Patient to be Admitted: Transfer of Care - Disposition Disposition: Transfer of Care Disposition Time: 19:00 Condition: STABLE Patient Signed Over To: Huseyin Peters
[2018-05-01 18:29] LABS: BASO % 0.3 % (0.0-2.0); EOS # 0.1 K/uL (0.0-0.7); HEMOGLOBIN 11.3 g/dL (12.0-18.0); LYMPH # 1.1 K/uL (1.0-4.3); LYMPH % 11.2 % (20.0-40.0); MEAN CORPUSCULAR HEMOGLOBIN 26.1 pg (27.0-31.0); MEAN CORPUSCULAR HGB CONC 31.1 g/dL (33.0-37.0); MEAN PLATELET VOLUME 9.5 fl (7.2-11.7); MONO # 1.2 K/uL (0.0-0.8); MONO % 12.2 % (0.0-10.0); NEUT # 7.5 K/uL (1.8-7.0); NEUT % 75.3 % (50.0-75.0); RBC 4.34 Mil/uL (4.40-5.90); RED CELL DISTRIBUTION WIDTH 20.1 % (11.5-14.5)
[2018-05-01] MEDS ORDERED: Albuterol-Ipratrop 3 mg / 0.5 (3 ml) UD ONE ×3 (18:34→21:26)
[2018-05-01 18:45] LABS: ALB/GLOB RATIO 1.2 (1.0-2.1); ALBUMIN 3.2 g/dL (3.5-5.0); CALCIUM 10.6 mg/dL (8.4-10.2)
--- NOTE | 2018-05-01 19:21 | ED PDOC ---
- Laboratory Results Result Diagrams: 05/01/18 18:23 05/01/18 18:23 Lab Results: Total Bilirubin 0.4 mg/dl (0.2-1.3) 05/01/18 18:23 AST 24 U/L (17-59) 05/01/18 18:23 ALT 30 U/L (21-72) 05/01/18 18:23 Alkaline Phosphatase 103 U/L (38-126) 05/01/18 18:23 Total Protein 6.1 G/DL (6.3-8.2) L 05/01/18 18:23 Albumin 3.2 g/dL (3.5-5.0) L 05/01/18 18:23 Globulin 2.8 gm/dL (2.2-3.9) 05/01/18 18: Albumin/Globulin Ratio 1.2 (1.0-2.1) 05/01/18 18:23 - ECG O2 Sat by Pulse Oximetry: 97 (RA) Medical Decision Making Medical Decision Makin:00 Patient signed out to this provider by Dr. Ram pending repeat EKG, re- evaluation and final disposition. 23:06 Patient with persistent shortness of breath after multiple duonebs and solumedrol. Lasix and nitro paste also given. Patient will be placed on observation for COPD and CHF exacerbation. Case referred to Dr. Smith. Scribe Attestation: Documented by No Bonds and Luigi Miranda, acting as a scribe Cisco Peters MD Provider Scribe Attestation: All medical record entries made by the Scribe were at my direction and personally dictated by me. I have reviewed the chart and agree that the record accurately reflects my personal performance of the history, physical exam, medical decision making, and the department course for this patient. I have also personally directed, reviewed, and agree with the discharge instructions and disposition Disposition - Clinical Impression Clinical Impression: COPD exacerbation - POA Present On Arrival: None - Disposition Disposition: Hospitalized as Observation Patient Disposition Time: 23:06
[2018-05-01] MEDS ORDERED: Nitroglycerin 2% Ointment Foilpak UD TOP STA (21:23)
[2018-05-01] MEDS ORDERED: Nitroglycerin 2% Ointment Foilpak UD TOP ONE (21:26)
[2018-05-01] MEDS ORDERED: Albuterol-Ipratrop 3 mg / 0.5 (3 ml) UD INH ONE ×2 (21:40→22:00)
[2018-05-01 23:37] LABS: TROPONIN I 0.031 ng/mL (0.00-0.120)
--- NOTE | 2018-05-01 23:54 | CP.PCM.HP ---
<ElizabethJoe - Last Filed: 05/02/18 01:57> History of Present Illness - History of Present Illness History of Present Illness: 67 y/o M with a PMHx of HTN, DM2, COPD, AFib, gout was brought by EMS to ED after a severe episodes of dyspnea a few hours ago. Pt was at a [employer] restaurant when he had severe SOB, felt like he was going to , had palpitations, and currently has mild chest pain with coughing. At the ambulance, pt received 1 dose of nitroglycerin SL. Pt was discharged from acute CHF exacerbation a few days ago, discharged with Xopenex inhaler and Medrol dose- laquita. Pt reports complete adherence to medication. His medications are by bedside in a plastic bag. PCP: [facility] -Allergy: Penicillins -Medications: Losartan 100mg PO daily, Digoxin 125mcg PO daily, Gabapentin 300mg BID, Eliquis 5mg PO Q12h, Aspirin 81 mg PO daily, Xopenex inhaler PRN, , Flovent 110mcg INH 1puff Q12, Metformin 500mg BID, Colchicine 0.6mg PO daily, Cardizem 360 mg PO daily, Atorvastatin 40mg daily, Amlodipine 5mg PO daily, Tudorza pressair INH Daily, medrol dose laquiat. -PMHx: COPD, Afib, CVA, HTN, HLD, PVD, NIDDM, gout, depression, Hx of cocaine abuse -Surghx: bunionectomy, cardiac cath June 2016, I&D upper back 08/2017 -FHx: HTN and DM on both sides of family. - SHx: Homeless- lives in fpc, Pt smokes 2-3 cigarettes a day, (50+pack year history), Cocaine-last done 1 year ago. denies alcohol. ED COURSE: --Vitals signs showed mild tachycardia, elevated BP. --Pro-BNP 713-wnl, negative troponin. --CXR showed venous congestion, read by me. --Duonebs 4x, SoluMedrol 125mg, Cardizem 50mg, IV Lasix 40mg were administered Present on Admission - Present on Admission Any Indicators Present on Admission: No Review of Systems - Constitutional Constitutional: absent: Chills, Fever - EENT Eyes: absent: Change in Vision Nose/Mouth/Throat: absent: Epistaxis, Nasal Congestion, Tongue Swelling, Neck Pain, Neck Mass - Cardiovascular Cardiovascular: Dyspnea, Leg Edema, Palpitations. absent: Chest Pain - Respiratory Respiratory: Cough, Dyspnea. absent: Hemoptysis - Gastrointestinal Gastrointestinal: absent: Abdominal Pain, Diarrhea, Hematochezia, Nausea, Vomiting - Genitourinary Genitourinary: absent: Difficulty Urinating, Dysuria, Hematuria Past Patient History - Infectious Disease Hx of Infectious Diseases: None - Tetanus Immunizations Tetanus Immunization: Unknown - Past Medical History & Family History Past Medical History?: Yes - Past Social History Smoking Status: Current Some Days Smoker - CARDIAC Hx Atrial Fibrillation: Yes Hx Cardia Arrhythmia: Yes Hx Congestive Heart Failure: Yes Hx Hypercholesterolemia: Yes Hx Hypertension: Yes Hx Mitral Valve Prolapse: No Hx Pacemaker: No Hx Peripheral Edema: Yes - PULMONARY Hx Asthma: Yes Hx Bronchitis: Yes Hx Chronic Obstructive Pulmonary Disease (COPD): Yes Hx Emphysema: No Hx Pneumonia: Yes Hx Pulmonary Embolism: Yes Hx Sleep Apnea: No - NEUROLOGICAL Hx Alzheimer's Disease: No Hx Dementia: No Hx Migraine: No Hx Multiple Sclerosis: No Hx Parkinson's Disease: No Hx Seizures: No Hx Transient Ischemic Attacks (TIA): No - HEENT Hx HEENT Problems: No - RENAL Hx Chronic Kidney Disease: No Hx Kidney Stones: No - ENDOCRINE/METABOLIC Hx Hyperthyroidism: Yes Hx Hypothyroidism: No - HEMATOLOGICAL/ONCOLOGICAL Hx Anemia: No Hx Human Immunodeficiency Virus (HIV): No Hx Sickle Cell Disease: No - INTEGUMENTARY Hx Dermatological Problems: No - MUSCULOSKELETAL/RHEUMATOLOGICAL Hx Arthritis: Yes Hx Fractures: No Hx Osteoporosis: No Hx Rheumatoid Arthritis: No - GASTROINTESTINAL Hx Crohn's Disease: No Hx Diverticulitis: No Hx Gall Bladder Disease: No Hx Gastritis: Yes Hx Pancreatitis: No - GENITOURINARY/GYNECOLOGICAL Hx Sexually Transmitted Disorders: No - PSYCHIATRIC Hx Anxiety: Yes Hx Bipolar Disorder: No Hx Depression: Yes Hx Paranoia: No Hx Post Traumatic Stress Disorder: No Hx Schizophrenia: No - SURGICAL HISTORY Hx Appendectomy: No Hx Carotid Endarterectomy: No Hx Cholecystectomy: No Hx Coronary Artery Bypass Graft: No Hx Coronary Stent: No Hx Tonsillectomy: No - ANESTHESIA Hx Anesthesia: Yes Hx Anesthesia Reactions: No Hx Malignant Hyperthermia: No Meds Home Medications: Home Medication List Medication Instructions Recorded Confirmed Type Albuterol HFA [Ventolin HFA 90 1 - 2 puff IH Q6 PRN #1 inhaler 05/01/18 Rx mcg/actuation (8 g)] Allergies/Adverse Reactions: Allergies Allergy/AdvReac Type Severity Reaction Status Date / Time Penicillins Allergy RASH Verified 04/25/18 16:48 Physical Exam - Constitutional Appears: Other (uncomfortable, breathing heavily) - Head Exam Head Exam: ATRAUMATIC, NORMOCEPHALIC - Eye Exam Eye Exam: EOMI - ENT Exam ENT Exam: Mucous Membranes Moist, Normal Oropharynx - Neck Exam Neck exam: Positive for: Full Rom, Normal Inspection. Negative for: Lymphadenopathy, Meningismus - Respiratory Exam Respiratory Exam: Rales, Rhonchi. absent: Wheezes Additional comments: Presence of ronchi diffusely, rales on b/l lower lobes. No sub-costal retractions - Cardiovascular Exam Cardiovascular Exam: Tachycardia, +S1, +S2 - GI/Abdominal Exam GI & Abdominal Exam: Soft. absent: Guarding, Rebound, Rigid, Tenderness Additional comments: Obese - Extremities Exam Extremities exam: Positive for: full ROM, pedal edema. Negative for: calf tenderness Additional comments: Presence of significant venous stasis diffuse dermatitis. - Neurological Exam Neurological exam: Alert, Oriented x3 Results - Vital Signs Recent Vital Signs: Last Vital Signs Temp 99.0 F 05/01/18 22:52 Pulse 98 H 05/01/18 22:52 Resp 17 05/01/18 22:52 BP 156/105 H 05/01/18 22:52 Pulse Ox 97 05/01/18 23:09 - Labs Result Diagrams: 05/01/18 18:23 05/01/18 18:23 Labs: Laboratory Results - last 24 hr 05/01/18 05/01/18 18:23 18:23 WBC 10.0 RBC 4.34 L Hgb 11.3 L Hct 36.5 MCV 84.0 MCH 26.1 L MCHC 31.1 L RDW 20.1 H Plt Count 237 MPV 9.5 Neut % (Auto) 75.3 H Lymph % (Auto) 11.2 L Mathews % (Auto) 12.2 H Eos % (Auto) 1.0 Baso % (Auto) 0.3 Neut # (Auto) 7.5 H Lymph # (Auto) 1.1 Mathews # (Auto) 1.2 H Eos # (Auto) 0.1 Baso # (Auto) 0.0 Sodium 141 Potassium 4.6 Chloride 106 Carbon Dioxide 32 H Anion Gap 8 L BUN 17 Creatinine 1.5 Est GFR ( Amer) 57 Est GFR (Non-Af Amer) 47 Random Glucose 135 H Calcium 10.6 H Total Bilirubin 0.4 AST 24 ALT 30 Alkaline Phosphatase 103 Troponin I 0.0310 NT-Pro-B Natriuret Pep 713 Total Protein 6.1 L Albumin 3.2 L Globulin 2.8 Albumin/Globulin Ratio 1.2 Assessment & Plan - Assessment and Plan (Free Text) Assessment: 67 y/o M with a PMHx of CHF, HTN, DM2, COPD, AFib and homeless was admitted for evaluation and management of dyspnea. PLAN: >Dyspnea --Presented with dyspnea, ronchi and rales on physical exam, normal Pro-BNP. --Possible COPD exacerbation. --Xopenex and Ipratropiun inhalation therapies ordered. --Methylprednisolone 40mg 40mg Q8H >Chronic heart failure, preserved EF. --Last EChocardiogram: EF 55-60%, moderate MR, LV diastolic function not asses d ue to A frib. --Pro-BNP 713-wnl, negative troponin. --C/w Lasix 40mg IV daily. (unremarkable renal function) >Hx of Atrial fibrillation --Chronic --Rate controlled --C/w PO home meds: Cardizem and Eliquis --Continuous cardiac monitoring. >COPD --Still smokes. --Xopenex ordered as per Hx of Afib and tachycardia. --Continue with home medications >Diabetes Mellitus type 2, controlled --Last HbA1c 6.9 (03/24/18) --Home meds resumed --Insulin sliding scale and hypoglycemia protocol >PVD (peripheral vascular disease) --chronic >Gout --chronic controlled --Home meds resumed >Hyperlipidemia --Chronic, controlled --Home meds resumed >Hypertension --Chronic, controlled --Home meds resumed --Monitor BP. >Diet --Consistent carbohydrate diet with heart healthy. >DVT PPX --On Eliquis Case discussed with Dr Luis Johnson PGY-2 - Date & Time Date: 05/01/18 Time: 23:57 <Faisal Smith - Last Filed: 05/02/18 10:09> Results - Vital Signs Recent Vital Signs: Last Vital Signs Temp 98.5 F 05/02/18 07:47 Pulse 116 H 05/02/18 09:12 Resp 16 05/02/18 07:47 BP 137/77 05/02/18 09:12 Pulse Ox 95 05/02/18 07:47 - Labs Result Diagrams: 05/01/18 18:23 05/01/18 18:23 Labs: Laboratory Results - last 24 hr 05/01/18 05/01/18 05/02/18 18:23 18:23 00:14 WBC 10.0 RBC 4.34 L Hgb 11.3 L Hct 36.5 MCV 84.0 MCH 26.1 L MCHC 31.1 L RDW 20.1 H Plt Count 237 MPV 9.5 Neut % (Auto) 75.3 H Lymph % (Auto) 11.2 L Mathews % (Auto) 12.2 H Eos % (Auto) 1.0 Baso % (Auto) 0.3 Neut # (Auto) 7.5 H Lymph # (Auto) 1.1 Mathews # (Auto) 1.2 H Eos # (Auto) 0.1 Baso # (Auto) 0.0 Sodium 141 Potassium 4.6 Chloride 106 Carbon Dioxide 32 H Anion Gap 8 L BUN 17 Creatinine 1.5 Est GFR ( Amer) 57 Est GFR (Non-Af Amer) 47 POC Glucose (mg/dL) 272 H Random Glucose 135 H Calcium 10.6 H Total Bilirubin 0.4 AST 24 ALT 30 Alkaline Phosphatase 103 Troponin I 0.0310 NT-Pro-B Natriuret Pep 713 Total Protein 6.1 L Albumin 3.2 L Globulin 2.8 Albumin/Globulin Ratio 1.2 Urine Opiates Screen Urine Methadone Screen Ur Barbiturates Screen Ur Phencyclidine Scrn Ur Amphetamines Screen U Benzodiazepines Scrn U Oth Cocaine Metabols U Cannabinoids Screen 05/02/18 05/02/18 07:15 07:44 WBC RBC Hgb Hct MCV MCH MCHC RDW Plt Count MPV Neut % (Auto) Lymph % (Auto) Mathews % (Auto) Eos % (Auto) Baso % (Auto) Neut # (Auto) Lymph # (Auto) Mathews # (Auto) Eos # (Auto) Baso # (Auto) Sodium Potassium Chloride Carbon Dioxide Anion Gap BUN Creatinine Est GFR ( Amer) Est GFR (Non-Af Amer) POC Glucose (mg/dL) 268 H Random Glucose Calcium Total Bilirubin AST ALT Alkaline Phosphatase Troponin I NT-Pro-B Natriuret Pep Total Protein Albumin Globulin Albumin/Globulin Ratio Urine Opiates Screen Negative Urine Methadone Screen Negative Ur Barbiturates Screen Negative Ur Phencyclidine Scrn Negative Ur Amphetamines Screen Negative U Benzodiazepines Scrn Negative U Oth Cocaine Metabols Positive H U Cannabinoids Screen Negative Attending/Attestation - Attestation I have personally seen and examined this patient.: Yes I have fully participated in the care of the patient.: Yes I have reviewed all pertinent clinical information: Yes Notes (Text): 05/02/18 10:02 I saw, examined and discussed this patient with Dr Johnson. I agree with the assessment and plan outlined. This is a 67 years old male who comes with SOB and wheezing, an exacerbation of COPD and Acute on chronic CHF. We will treat the COPD with Steroids, Xopenes and Ipratropium with Advair. For the Congestive Heart Failure , he will receive lasix and Cozaar. His A Fib with rapid response with be teated with Cardizem and Digoxin. His elevated Blood Pressure will be covered with the Cozaar and the cardizem. Faisal Smith MD
[2018-05-02] MEDS: Levalbuterol 1.25 MG/3 ML Inhal Soln UD INH SCH ×4 (00:15→23:15)
[2018-05-02] MEDS: guaiFENesin 600 mg ER Tab PO SCH ×3 (00:15→21:08)
[2018-05-02] MEDS ORDERED: Albuterol-Ipratrop 3 mg / 0.5 (3 ml) UD ONE (00:53)
[2018-05-02] MEDS ORDERED: methylPREDNISolone 40 MG in Sodium Chloride 0.9% 50 ML IVPB SCH (01:00)
[2018-05-02] MEDS ORDERED: Dextrose 50% SYRINGE Inj (50 ml) IV PRN (01:27)
[2018-05-02] MEDS ORDERED: Glucagon Recombinant 1 mg Inj IM PRN (01:27)
[2018-05-02] MEDS ORDERED: MethylPREDNISolone 40 mg Vial ONE (01:40)
[2018-05-02] MEDS: MethylPREDNISolone 40 mg Vial IVP SCH ×3 (01:52→17:50)
[2018-05-02] MEDS: Ipratropium 0.02% Inhal Soln (0.5 mg/2.5 ml) UD IH SCH ×3 (03:22→19:10)
[2018-05-02 07:53] LABS: BARBITURATES, UR NEGATIVE (NEGATIVE); BENZODIAZEPINES, UR NEGATIVE (NEGATIVE); OPIATES, UR NEGATIVE (NEGATIVE); PHENCYCLIDINE, UR NEGATIVE (NEGATIVE)
[2018-05-02] MEDS: Digoxin 125 mcg (0.125 mg) Tab PO SCH (08:27)
--- NOTE | 2018-05-02 08:31 | CARD ---
APPROVED REPORT Date of service: 05/01/2018 EKG Measurement Heart [id number] <Conclusion> Atrial fibrillation with rapid ventricular response Abnormal ECG
[2018-05-02] MEDS: Fluticasone-Salmeterol 250-50mcg Diskus IH SCH ×2 (08:36→22:09)
[2018-05-02] MEDS ORDERED: ACLIDINIUM BROMIDE IH SCH (09:00)
[2018-05-02] MEDS ORDERED: diltiaZEM 300 mg/24 Hours CD Cap PO SCH (09:00)
[2018-05-02] MEDS: diltiaZEM 120 mg/24 Hours CD Cap PO SCH (09:12)
[2018-05-02] MEDS: Insulin Lispro (humaLOG) 100 Units/ml Inj SC SCH ×4 (09:18→22:10)
--- NOTE | 2018-05-02 11:32 | CP.PCM.PN ---
<Birdie Abernathy - Last Filed: 05/02/18 14:09> Subjective - Date & Time of Evaluation Date of Evaluation: 05/02/18 Time of Evaluation: 11:27 - Subjective Subjective: 67 y/o M with a PMHx of HTN, DM2, COPD, AFib, gout was brought by EMS to ED after a severe episodes of dyspnea a few hours ago. Denies acute overnight events. Complains of coughing, chest pain and weakness all over the body. Denies f/n/v/sob Objective - Vital Signs/Intake and Output Vital Signs (last 24 hours): Temp Pulse Resp BP Pulse Ox 98.5 F 110 H 18 142/80 97 05/02/18 07:47 05/02/18 10:46 05/02/18 10:46 05/02/18 10:46 05/02/18 10:03 Intake and Output: 05/02/18 05/02/18 06:59 18:59 Output Total 800 Balance -800 - Medications Medications: Current Medications Amlodipine Besylate (Norvasc) 10 mg PO DAILY [facility] Last Admin: 05/02/18 08:29 Dose: 10 mg Apixaban (Eliquis) 5 mg PO Q12 [facility]; Protocol Last Admin: 05/02/18 08:29 Dose: 5 mg Aspirin (Aspirin Chewable) 81 mg PO DAILY [facility] Last Admin: 05/02/18 08:29 Dose: 81 mg Atorvastatin Calcium (Lipitor) 40 mg PO DAILY [facility] Last Admin: 05/02/18 08:30 Dose: 40 mg Colchicine (Colocrys) 0.6 mg PO DAILY [facility] Last Admin: 05/02/18 08:24 Dose: 0.6 mg Dextrose (Dextrose 50% Inj) 0 ml IV STAT PRN; Protocol PRN Reason: Hypoglycemia Protocol Dextrose (Glutose 15) 0 gm PO ONCE PRN; Protocol PRN Reason: Hypoglycemia Protocol Digoxin (Digoxin) 0.125 mg PO DAILY [facility] Last Admin: 05/02/18 08:27 Dose: 0.125 mg Diltiazem HCl (Cardizem Cd) 360 mg PO DAILY [facility] Last Admin: 05/02/18 09:12 Dose: 360 mg Furosemide (Lasix) 20 mg IVP DAILY [facility] Last Admin: 05/02/18 08:41 Dose: 20 mg Gabapentin (Neurontin) 300 mg PO Q12 [facility] Last Admin: 05/02/18 08:28 Dose: 300 mg Glucagon (Glucagen Diagnostic Kit) 0 mg IM STAT PRN; Protocol PRN Reason: Hypoglycemia Protocol Guaifenesin (Mucinex La) 1,200 mg PO Q12 [facility] Last Admin: 05/02/18 08:23 Dose: 1,200 mg Home Med (Aclidinium Dalton [Tudorza Pressair]) 1 puff IH DAILY [facility] Ibuprofen (Motrin Tab) 400 mg PO Q6 PRN PRN Reason: Pain, moderate (4-7) Insulin Human Lispro (Humalog) 0 units SC ACCU-CHECK [facility]; Protocol Last Admin: 05/02/18 09:18 Dose: 6 u Ipratropium Dalton (Atrovent) 0.5 mg IH RQ6 [facility] Last Admin: 05/02/18 09:51 Dose: 0.5 mg Levalbuterol HCl (Xopenex) 1.25 mg INH RQ8 [facility] Last Admin: 05/02/18 09:27 Dose: 1.25 mg Losartan Potassium (Cozaar) 100 mg PO DAILY [facility] Last Admin: 05/02/18 08:25 Dose: 100 mg Metformin HCl (Glucophage) 500 mg PO BIDWM [facility] Last Admin: 05/02/18 08:27 Dose: 500 mg Methylprednisolone (Solu-Medrol) 40 mg IVP Q8 [facility] Last Admin: 05/02/18 08:30 Dose: 40 mg Pantoprazole Sodium (Protonix Inj) 40 mg IVP DAILY [facility] Last Admin: 05/02/18 09:23 Dose: 40 mg Fluticasone/Salmeterol (Advair Diskus 250/50) 1 puff IH Q12 [facility] Last Admin: 05/02/18 08:36 Dose: Not Given - Labs Labs: 05/01/18 18:23 05/01/18 18:23 - Constitutional Appears: Well, Non-toxic, No Acute Distress - Head Exam Head Exam: ATRAUMATIC, NORMOCEPHALIC - Eye Exam Eye Exam: Normal appearance Pupil Exam: NORMAL ACCOMODATION - ENT Exam ENT Exam: Mucous Membranes Moist - Respiratory Exam Respiratory Exam: Rhonchi, Wheezes - Cardiovascular Exam Cardiovascular Exam: REGULAR RHYTHM, +S1, +S2 - Neurological Exam Neurological Exam: Alert, Awake - Psychiatric Exam Psychiatric exam: Normal Affect Assessment and Plan - Assessment and Plan (Free Text) Assessment: 67 y/o M with a PMHx of CHF, HTN, DM2, COPD, AFib and homeless was admitted for evaluation and management of dyspnea. Plan: >Dyspnea(COPD exacerbation) --Presented with dyspnea, ronchi and rales on physical exam, normal Pro-BNP. --Xopenex and Ipratropiun inhalation therapies ordered. --Methylprednisolone 40mg 40mg Q8H --Continue Azithromycin -- f/u CXR read >Chronic heart failure, preserved EF. --Last EChocardiogram: EF 55-60%, moderate MR, LV diastolic function not asses due to A frib. --Pro-BNP 713-wnl, negative troponin. --C/w Lasix 40mg IV daily. (unremarkable renal function) >Hx of Atrial fibrillation --Chronic --Rate controlled --C/w PO home meds: Cardizem(360 mg) and Eliquis --Continuous cardiac monitoring. >COPD --Still smokes. --Xopenex ordered as per Hx of Afib and tachycardia. --Continue with home medications >Diabetes Mellitus type 2, controlled --Last HbA1c 6.9 (03/24/18) --Home meds resumed --Insulin sliding scale and hypoglycemia protocol >PVD (peripheral vascular disease) --chronic >Gout --chronic controlled --Home meds resumed >Hyperlipidemia --Chronic, controlled --Home meds resumed >Hypertension --Chronic, controlled --Home meds resumed --Monitor BP. >Diet --Consistent carbohydrate diet with heart healthy. >DVT PPX --On Eliquis <Steffany Mueller - Last Filed: 05/02/18 15:38> Objective - Vital Signs/Intake and Output Vital Signs (last 24 hours): Temp Pulse Resp BP Pulse Ox 97.2 F L 87 19 121/79 100 05/02/18 11:58 05/02/18 12:32 05/02/18 12:32 05/02/18 11:58 05/02/18 11:58 Intake and Output: 05/02/18 05/02/18 06:59 18:59 Output Total 800 Balance -800 - Medications Medications: Current Medications Amlodipine Besylate (Norvasc) 10 mg PO DAILY [facility] Last Admin: 05/02/18 08:29 Dose: 10 mg Apixaban (Eliquis) 5 mg PO Q12 [facility]; Protocol Last Admin: 05/02/18 08:29 Dose: 5 mg Aspirin (Aspirin Chewable) 81 mg PO DAILY [facility] Last Admin: 05/02/18 08:29 Dose: 81 mg Atorvastatin Calcium (Lipitor) 40 mg PO DAILY [facility] Last Admin: 05/02/18 08:30 Dose: 40 mg Colchicine (Colocrys) 0.6 mg PO DAILY [facility] Last Admin: 05/02/18 08:24 Dose: 0.6 mg Dextrose (Dextrose 50% Inj) 0 ml IV STAT PRN; Protocol PRN Reason: Hypoglycemia Protocol Dextrose (Glutose 15) 0 gm PO ONCE PRN; Protocol PRN Reason: Hypoglycemia Protocol Digoxin (Digoxin) 0.125 mg PO DAILY [facility] Last Admin: 05/02/18 08:27 Dose: 0.125 mg Diltiazem HCl (Cardizem Cd) 360 mg PO DAILY [facility] Last Admin: 05/02/18 09:12 Dose: 360 mg Furosemide (Lasix) 20 mg IVP DAILY [facility] Last Admin: 05/02/18 08:41 Dose: 20 mg Gabapentin (Neurontin) 300 mg PO Q12 [facility] Last Admin: 05/02/18 08:28 Dose: 300 mg Glucagon (Glucagen Diagnostic Kit) 0 mg IM STAT PRN; Protocol PRN Reason: Hypoglycemia Protocol Guaifenesin (Mucinex La) 1,200 mg PO Q12 [facility] Last Admin: 05/02/18 08:23 Dose: 1,200 mg Home Med (Aclidinium Dalton [Tudorza Pressair]) 1 puff IH DAILY [facility] Azithromycin 500 mg/ Sodium (Chloride) 250 mls @ 250 mls/hr IVPB DAILY [facility]; Protocol Ibuprofen (Motrin Tab) 400 mg PO Q6 PRN PRN Reason: Pain, moderate (4-7) Insulin Human Lispro (Humalog) 0 units SC ACCU-CHECK [facility]; Protocol Last Admin: 05/02/18 13:48 Dose: 4 u Ipratropium Dalton (Atrovent) 0.5 mg IH RQ6 [facility] Last Admin: 05/02/18 09:51 Dose: 0.5 mg Levalbuterol HCl (Xopenex) 1.25 mg INH RQ8 [facility] Last Admin: 05/02/18 15:18 Dose: 1.25 mg Losartan Potassium (Cozaar) 100 mg PO DAILY [facility] Last Admin: 05/02/18 08:25 Dose: 100 mg Metformin HCl (Glucophage) 500 mg PO BIDWM [facility] Last Admin: 05/02/18 08:27 Dose: 500 mg Methylprednisolone (Solu-Medrol) 40 mg IVP Q8 [facility] Last Admin: 05/02/18 08:30 Dose: 40 mg Pantoprazole Sodium (Protonix Inj) 40 mg IVP DAILY [facility] Last Admin: 05/02/18 09:23 Dose: 40 mg Fluticasone/Salmeterol (Advair Diskus 250/50) 1 puff IH Q12 [facility] Last Admin: 05/02/18 08:36 Dose: Not Given - Labs Labs: 05/01/18 18:23 05/01/18 18:23 Attending/Attestation - Attestation I have personally seen and examined this patient.: Yes I have fully participated in the care of the patient.: Yes I have reviewed all pertinent clinical information, including history, physical exam and plan: Yes Notes (Text): COPD exacerbation Acute on chronic CHF , diastolic dysfunction EF 55-60% A Fib, chronic DM type II - cont IV Solumedrol and Duoneb tx -cont Lasix IV - start IV AZithro - cont Eliquis - accucheck with coverage
[2018-05-02] MEDS ORDERED: Azithromycin 500 MG in Sodium Chloride 0.9% 250 ML IVPB STA (11:35)
--- NOTE | 2018-05-02 12:41 | RAD ---
Date of service: 05/01/2018 HISTORY: SOB COMPARISON: 04/25/2018 FINDINGS: LUNGS: No active pulmonary disease. PLEURA: No significant pleural effusion identified, no pneumothorax apparent. CARDIOVASCULAR: No atherosclerotic calcification present No radiographic findings to suggest acute or significant cardiovascular disease. OSSEOUS STRUCTURES: No significant abnormalities. VISUALIZED UPPER ABDOMEN: Normal. OTHER FINDINGS: None. IMPRESSION: No active disease. No significant interval change compared to the prior examination(s).
[2018-05-02 15:50] VITALS: RESP 18
[2018-05-03] MEDS: MethylPREDNISolone 40 mg Vial IVP SCH ×3 (00:38→17:07)
[2018-05-03] MEDS: Ipratropium 0.02% Inhal Soln (0.5 mg/2.5 ml) UD IH SCH ×3 (02:55→13:07)
[2018-05-03 06:00] LABS: HEMOGLOBIN 11.1 g/dL (12.0-18.0); MEAN CELL VOLUME 82.9 fl (80.0-94.0); MEAN CORPUSCULAR HEMOGLOBIN 26.1 pg (27.0-31.0); MEAN CORPUSCULAR HGB CONC 31.4 g/dL (33.0-37.0); RBC 4.27 Mil/uL (4.40-5.90); RED CELL DISTRIBUTION WIDTH 20.8 % (11.5-14.5)
[2018-05-03 06:10] LABS: WHITE BLOOD COUNT 17.5 K/uL (4.8-10.8)
[2018-05-03 06:40] LABS: ALB/GLOB RATIO 1.2 (1.0-2.1); ALBUMIN 3.4 g/dL (3.5-5.0); ALT/SGPT 27 U/L (21-72); AST/SGOT 16 U/L (17-59); BLOOD UREA NITROGEN 28 mg/dl (9-20); CALCIUM 11.1 mg/dL (8.4-10.2); GFR NON-AFRICAN AMERICAN 51
[2018-05-03] MEDS: Insulin Lispro (humaLOG) 100 Units/ml Inj SC SCH ×3 (06:48→17:07)
[2018-05-03] MEDS: Levalbuterol 1.25 MG/3 ML Inhal Soln UD INH SCH ×2 (08:31→16:00)
[2018-05-03] MEDS: Fluticasone-Salmeterol 250-50mcg Diskus IH SCH (08:34)
[2018-05-03] MEDS: diltiaZEM 120 mg/24 Hours CD Cap PO SCH (08:35)
[2018-05-03] MEDS: Digoxin 125 mcg (0.125 mg) Tab PO SCH (08:37)
[2018-05-03] MEDS: guaiFENesin 600 mg ER Tab PO SCH (08:38)
[2018-05-03 08:40] VITALS: PULSE 70
[2018-05-03] MEDS ORDERED: Azithromycin 500 MG in Sodium Chloride 0.9% 250 ML IVPB SCH (09:00)
--- NOTE | 2018-05-03 11:38 | CP.PCM.DIS ---
<Birdie Abernathy - Last Filed: 05/03/18 13:28> Provider - Provider Date of Admission: 05/01/18 23:03 Attending physician: Faisal Smith Consults: 05/02/18 12:42 Social Work Referral Routine Comment: homeless Physician Instructions: Reason For Exam: homeless Time Spent in preparation of Discharge (in minutes): 30 Hospital Course - Lab Results Lab Results: Most Recent Lab Values WBC 17.5 K/uL (4.8-10.8) H D 05/03/18 04:30 RBC 4.27 Mil/uL (4.40-5.90) L 05/03/18 04:30 Hgb 11.1 g/dL (12.0-18.0) L 05/03/18 04:30 Hct 35.4 % (35.0-51.0) 05/03/18 04:30 MCV 82.9 fl (80.0-94.0) 05/03/18 04:30 MCH 26.1 pg (27.0-31.0) L 05/03/18 04:30 MCHC 31.4 g/dL (33.0-37.0) L 05/03/18 04:30 RDW 20.8 % (11.5-14.5) H 05/03/18 04:30 Plt Count 264 K/uL (130-400) 05/03/18 04:30 MPV 9.5 fl (7.2-11.7) 05/01/18 18:23 Neut % (Auto) 75.3 % (50.0-75.0) H 05/01/18 18:23 Lymph % (Auto) 11.2 % (20.0-40.0) L 05/01/18 18:23 [place] % (Auto) 12.2 % (0.0-10.0) H 05/01/18 18:23 Eos % (Auto) 1.0 % (0.0-4.0) 05/01/18 18:23 Baso % (Auto) 0.3 % (0.0-2.0) 05/01/18 18:23 Neut # (Auto) 7.5 K/uL (1.8-7.0) H 05/01/18 18:23 Lymph # (Auto) 1.1 K/uL (1.0-4.3) 05/01/18 18:23 [place] # (Auto) 1.2 K/uL (0.0-0.8) H 05/01/18 18:23 Eos # (Auto) 0.1 K/uL (0.0-0.7) 05/01/18 18:23 Baso # (Auto) 0.0 K/uL (0.0-0.2) 05/01/18 18:23 Sodium 139 mmol/l (132-148) 05/03/18 04:30 Potassium 4.4 MMOL/L (3.6-5.0) 05/03/18 04:30 Chloride 100 mmol/L (98-107) 05/03/18 04:30 Carbon Dioxide 30 mmol/L (22-30) 05/03/18 04:30 Anion Gap 13 (10-20) 05/03/18 04:30 BUN 28 mg/dl (9-20) H 05/03/18 04:30 Creatinine 1.4 mg/dl (0.8-1.5) 05/03/18 04:30 Est GFR ( Amer) > 60 05/03/18 04:30 Est GFR (Non-Af Amer) 51 05/03/18 04:30 POC Glucose (mg/dL) 242 mg/dL (65-110) H 05/03/18 10:12 Random Glucose 223 mg/dL (75-110) H 05/03/18 04:30 Calcium 11.1 mg/dL (8.4-10.2) H 05/03/18 04:30 Total Bilirubin 0.3 mg/dl (0.2-1.3) 05/03/18 04:30 AST 16 U/L (17-59) L D 05/03/18 04:30 ALT 27 U/L (21-72) 05/03/18 04:30 Alkaline Phosphatase 101 U/L (38-126) 05/03/18 04:30 Troponin I 0.0310 ng/mL (0.00-0.120) 05/01/18 18:23 NT-Pro-B Natriuret Pep 713 pg/ml (0-900) 05/01/18 18:23 Total Protein 6.3 G/DL (6.3-8.2) 05/03/18 04:30 Albumin 3.4 g/dL (3.5-5.0) L 05/03/18 04:30 Globulin 2.9 gm/dL (2.2-3.9) 05/03/18 04:30 Albumin/Globulin Ratio 1.2 (1.0-2.1) 05/03/18 04:30 Urine Opiates Screen Negative (NEGATIVE) 05/02/18 07:15 Urine Methadone Screen Negative (NEGATIVE) 05/02/18 07:15 Ur Barbiturates Screen Negative (NEGATIVE) 05/02/18 07:15 Ur Phencyclidine Scrn Negative (NEGATIVE) 05/02/18 07:15 Ur Amphetamines Screen Negative (NEGATIVE) 05/02/18 07:15 U Benzodiazepines Scrn Negative (NEGATIVE) 05/02/18 07:15 U Oth Cocaine Metabols Positive (NEGATIVE) H 05/02/18 07:15 U Cannabinoids Screen Negative (NEGATIVE) 05/02/18 07:15 - Hospital Course Hospital Course: 67 y/o M with a PMHx of CHF, HTN, DM2, COPD, AFib and homeless was admitted for evaluation and management of dyspnea. CXR WNL. Patient given IV solumedrol. Signs and symptoms resolved; patient d/ok with medrol dose pack, and azithromycin. Patient to follow up in [facility]. Discharge Exam - Head Exam Head Exam: ATRAUMATIC, NORMOCEPHALIC - Eye Exam Eye Exam: Normal appearance Pupil Exam: NORMAL ACCOMODATION - ENT Exam ENT Exam: Mucous Membranes Moist - Respiratory Exam Respiratory Exam: Wheezes, NORMAL BREATHING PATTERN - Cardiovascular Exam Cardiovascular Exam: REGULAR RHYTHM, +S1, +S2 - Back Exam Back exam: NORMAL INSPECTION - Neurological Exam Neurological exam: Alert, Oriented x3 - Psychiatric Exam Psychiatric exam: Normal Affect Discharge Plan - Discharge Medications Prescriptions: RX: Aclidinium [place] [Tudorza Pressair] 1 puff IH DAILY #1 aer.pow.ba RX: Albuterol HFA [Ventolin HFA 90 mcg/actuation (8 g)] 1 - 2 puff IH Q6 PRN #1 inhaler PRN Reason: Shortness Of Breath RX: Albuterol Sulfate [Ventolin Hfa] 2 puff IH Q6 PRN #1 hfa.aer.ad PRN Reason: Shortness Of Breath RX: amLODIPine [Norvasc] 10 mg PO DAILY #30 tab RX: Apixaban [Eliquis] 5 mg PO Q12 #60 tab RX: Aspirin [Aspirin Chewable] 81 mg PO DAILY #30 chew RX: Atorvastatin [Lipitor] 40 mg PO DAILY #30 tab RX: Azithromycin [Zithromax] 250 mg PO DAILY #4 tab RX: Colchicine [Mitigare] 0.6 mg PO DAILY #30 capsule RX: Digoxin [Digitek] 125 mcg PO DAILY #30 tablet RX: diltiaZEM CD [Cardizem CD] 300 mg PO DAILY #30 cap RX: Fluticasone/Salmeterol [Advair 250-50 Diskus] 1 each IH Q12 #1 blst.w.dev RX: Furosemide [Lasix] 20 mg PO DAILY #30 tab RX: Gabapentin [Neurontin] 300 mg PO Q12 #60 cap RX: Losartan [Cozaar] 100 mg PO DAILY #30 tab RX: metFORMIN [glucOPHAGE] 500 mg PO BIDWM #60 tab Methylprednisolone [Medrol Dose Pack (21 tabs)] 4 mg PO DAILY #21 mg - Follow Up Plan Condition: STABLE Disposition: HOME/ ROUTINE Instructions: Heart Failure, Adult (DC), Exacerbation of COPD (DC) Additional Instructions: follow up appt with on 05/09/18 4:00pm Referrals: [facility] [place] [Outside] <Steffany Mueller - Last Filed: 05/03/18 15:01> Provider - Provider Date of Admission: 05/01/18 23:03 Attending physician: Faisal Smith Consults: 05/02/18 12:42 Social Work Referral Routine Comment: homeless Physician Instructions: Reason For Exam: homeless Hospital Course - Lab Results Lab Results: Most Recent Lab Values WBC 17.5 K/uL (4.8-10.8) H D 05/03/18 04:30 RBC 4.27 Mil/uL (4.40-5.90) L 05/03/18 04:30 Hgb 11.1 g/dL (12.0-18.0) L 05/03/18 04:30 Hct 35.4 % (35.0-51.0) 05/03/18 04:30 MCV 82.9 fl (80.0-94.0) 05/03/18 04:30 MCH 26.1 pg (27.0-31.0) L 05/03/18 04:30 MCHC 31.4 g/dL (33.0-37.0) L 05/03/18 04:30 RDW 20.8 % (11.5-14.5) H 05/03/18 04:30 Plt Count 264 K/uL (130-400) 05/03/18 04:30 MPV 9.5 fl (7.2-11.7) 05/01/18 18:23 Neut % (Auto) 75.3 % (50.0-75.0) H 05/01/18 18:23 Lymph % (Auto) 11.2 % (20.0-40.0) L 05/01/18 18:23 [place] % (Auto) 12.2 % (0.0-10.0) H 05/01/18 18:23 Eos % (Auto) 1.0 % (0.0-4.0) 05/01/18 18:23 Baso % (Auto) 0.3 % (0.0-2.0) 05/01/18 18:23 Neut # (Auto) 7.5 K/uL (1.8-7.0) H 05/01/18 18:23 Lymph # (Auto) 1.1 K/uL (1.0-4.3) 05/01/18 18:23 [place] # (Auto) 1.2 K/uL (0.0-0.8) H 05/01/18 18:23 Eos # (Auto) 0.1 K/uL (0.0-0.7) 05/01/18 18:23 Baso # (Auto) 0.0 K/uL (0.0-0.2) 05/01/18 18:23 Sodium 139 mmol/l (132-148) 05/03/18 04:30 Potassium 4.4 MMOL/L (3.6-5.0) 05/03/18 04:30 Chloride 100 mmol/L (98-107) 05/03/18 04:30 Carbon Dioxide 30 mmol/L (22-30) 05/03/18 04:30 Anion Gap 13 (10-20) 05/03/18 04:30 BUN 28 mg/dl (9-20) H 05/03/18 04:30 Creatinine 1.4 mg/dl (0.8-1.5) 05/03/18 04:30 Est GFR ( Amer) > 60 05/03/18 04:30 Est GFR (Non-Af Amer) 51 05/03/18 04:30 POC Glucose (mg/dL) 242 mg/dL (65-110) H 05/03/18 10:12 Random Glucose 223 mg/dL (75-110) H 05/03/18 04:30 Calcium 11.1 mg/dL (8.4-10.2) H 05/03/18 04:30 Total Bilirubin 0.3 mg/dl (0.2-1.3) 05/03/18 04:30 AST 16 U/L (17-59) L D 05/03/18 04:30 ALT 27 U/L (21-72) 05/03/18 04:30 Alkaline Phosphatase 101 U/L (38-126) 05/03/18 04:30 Troponin I 0.0310 ng/mL (0.00-0.120) 05/01/18 18:23 NT-Pro-B Natriuret Pep 713 pg/ml (0-900) 05/01/18 18:23 Total Protein 6.3 G/DL (6.3-8.2) 05/03/18 04:30 Albumin 3.4 g/dL (3.5-5.0) L 05/03/18 04:30 Globulin 2.9 gm/dL (2.2-3.9) 05/03/18 04:30 Albumin/Globulin Ratio 1.2 (1.0-2.1) 05/03/18 04:30 Urine Opiates Screen Negative (NEGATIVE) 05/02/18 07:15 Urine Methadone Screen Negative (NEGATIVE) 05/02/18 07:15 Ur Barbiturates Screen Negative (NEGATIVE) 05/02/18 07:15 Ur Phencyclidine Scrn Negative (NEGATIVE) 05/02/18 07:15 Ur Amphetamines Screen Negative (NEGATIVE) 05/02/18 07:15 U Benzodiazepines Scrn Negative (NEGATIVE) 05/02/18 07:15 U Oth Cocaine Metabols Positive (NEGATIVE) H 05/02/18 07:15 U Cannabinoids Screen Negative (NEGATIVE) 05/02/18 07:15 Attending/Attestation - Attestation I have personally seen and examined this patient.: Yes I have fully participated in the care of the patient.: Yes I have reviewed all pertinent clinical information, including history, physical exam and plan: Yes Notes (Text): COPD exacerbation Acute on chronic CHF , diastolic dysfunction EF 55-60% A Fib, chronic DM type II Cocaine Abuse Leukocytosis sec to Steroids -Pt received IV Solumedrol, IV Azithro and Duoneb tx , his symptoms improved , saturation normal on RA , Lungs no wheezing, min rhonchi - also received IV Lasix - cont Eliquis and home meds - counseled re: drug abuse
[2018-05-03 11:40] VITALS: BP 139/72; PULSE 79; TEMP 97.7
[2018-05-03 14:49] VITALS: O2SAT 97
== END 2018-05-03 17:50 | disposition home or self-care (01) ==
LOC: H.ER 17:10 → H.ERHOLD 23:03 → H.TEL 05-02 10:59
PROVIDERS: ADMIT Internal Medicine; ATTEND Internal Medicine
DX: J44.1 Chronic obstructive pulmonary disease with (acute) exacerbation (principal); I50.33 Acute on chronic diastolic (congestive) heart failure; I48.2 Chronic atrial fibrillation; I11.0 Hypertensive heart disease with heart failure; F14.10 Cocaine abuse, uncomplicated; I25.10 Atherosclerotic heart disease of native coronary artery without angina pectoris; D72.829 Elevated white blood cell count, unspecified; E11.51 Type 2 diabetes mellitus with diabetic peripheral angiopathy without gangrene; E78.00 Pure hypercholesterolemia, unspecified; E78.5 Hyperlipidemia, unspecified; F32.9 Major depressive disorder, single episode, unspecified; F41.9 Anxiety disorder, unspecified; M19.90 Unspecified osteoarthritis, unspecified site; F17.210 Nicotine dependence, cigarettes, uncomplicated; Z59.0 Homelessness; Z79.84 Long term (current) use of oral hypoglycemic drugs; Z79.01 Long term (current) use of anticoagulants; Z79.82 Long term (current) use of aspirin; Z86.711 Personal history of pulmonary embolism; Z87.01 Personal history of pneumonia (recurrent); Z86.73 Personal history of transient ischemic attack (TIA), and cerebral infarction without residual deficits; Z88.0 Allergy status to penicillin
CPT/HCPCS: 36415; 71045; 80053; 80324; 80345; 80346; 80349; 80353; 80358; 80361; 82948; 83880; 83992; 84484; 85025; 85027; 93005; 94640; 96365; 96366; 96375; 96376; 99285; C9113; G0378; J0360; J0456; J1940; J2920; J2930; J7050